=== PATIENT | female | born 1980 | race Caucasian/White ===

== ENCOUNTER 2019-03-26 11:14 | Emergency (ER) | payer SELFPAY ==
[2019-03-26] MEDS ORDERED: NA CHLORIDE 0.9% 1,000 ML ONE (11:38)
[2019-03-26] MEDS ORDERED: KETOROLAC 30 MG/ML INJ ONE (11:38)
[2019-03-26] MEDS ORDERED: ONDANSETRON 4 MG/2 ML VIAL ONE (11:38)
[2019-03-26] MEDS ORDERED: FAMOTIDINE 20 MG/2 ML VIAL IV ONE (11:38)
[2019-03-26 12:06] LABS: Absolute Lymphocytes (CBC) 1.3 K/uL (0.7-4.9); Basophils % 0.2 % (0-1.3); Hematocrit 41.2 % (36.0-45.0); Lymphocytes % 10.4 % (15.3-44.8); MPV 8.9 fL (7.6-11.3)
[2019-03-26 12:23] LABS: ALT/SGPT 49 U/L (12-78); AST/SGOT 30 U/L (15-37); Albumin 4.2 g/dL (3.4-5.0); Alkaline Phosphatase 81 U/L (45-117); BUN Blood Urea Nitrogen 10 mg/dL (7-18); Bicarbonate 24 mmol/L (21-32); Bilirubin Direct 0.1 mg/dL (0-0.2); Bilirubin Total 0.6 mg/dL (0.2-1.0); Glucose Level 111 mg/dL (74-106); Lipase 50 U/L (73-393); Potassium 3.7 mmol/L (3.5-5.1); Protein, Total 8.2 g/dL (6.4-8.2); Sodium Level 141 mmol/L (136-145)
[2019-03-26 12:27] LABS: Urine Blood 1+ (NEG); Urine Glucose NEGATIVE (NEG); Urine Protein NEGATIVE (NEG)
[2019-03-26 12:38] LABS: Blood Morphology Comment NOT SEEN (NOT SEEN); Platelet Estimate ADEQ
--- NOTE | 2019-03-26 13:28 | RAD REPORT ---
EXAM DESCRIPTION: US - Abdomen Exam Limited - 03/26/2019 1:18 pm CLINICAL HISTORY: ABD PAIN COMPARISON: ABDOMINAL EXAM LIMITED dated 11/17/2011 FINDINGS: The gallbladder demonstrates no gallstones. No pericholecystic fluid or gallbladder wall t hickening. The common bile duct is normal measuring 5 mm. The liver demonstrates no findings of intrahepatic biliary dilatation. IMPRESSION: Unremarkable examination.
--- NOTE | 2019-03-26 13:35 | ER ---
Nurse's Notes [facility] Name: Serenity Collins Age: 38 yrs Sex: Female : 1980 Arrival Date: 03/26/2019 Time: 11:20 Bed 17 Private MD: Diagnosis: Upper abdominal pain, unspecified Presentation: 03/26 11:20 Presenting complaint: EMS states: epigastric pain that started yesterday, reports N/V iw denies diarrhea or fever, also reports left ring toe pain after stubbing it on bed frame. Transition of care: patient was not received from another setting of care. Onset of symptoms was March 25, 2019. Risk Assessment: Do you want to hurt yourself or someone else? Patient reports no desire to harm self or others. Initial Sepsis Screen: Does the patient meet any 2 criteria? No. Patient's initial sepsis screen is negative. Does the patient have a suspected source of infection? No. Patient's initial sepsis screen is negative. Care prior to arrival: Medication(s) given: Normal saline infusion, 500 mL. 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 - Social history:: Smoking status: Patient/guardian denies using tobacco. - Ebola Screening: : Patient negative for fever greater than or equal to 101.5 degrees Fahrenheit, and additional compatible Ebola Virus Disease symptoms Patient denies exposure to infectious person Patient denies travel to an Ebola-affected area in the 21 days before illness onset No symptoms or risks identified at this time. Screenin:23 Abuse screen: Denies threats or abuse. Nutritional screening: No deficits noted. em Tuberculosis screening: No symptoms or risk factors identified. Fall Risk None identified. Assessment: 11:23 General: Appears in no apparent distress. comfortable, Behavior is calm, cooperative, em Denies fever. Pain: Complains of pain in right upper quadrant Pain currently is 9 out of 10 on a pain scale. Quality of pain is described as sharp, shooting. Neuro: Level of Consciousness is awake, alert, obeys commands, Oriented to person, place, time, situation. Cardiovascular: Capillary refill < 3 seconds Patient's skin is warm and dry. Respiratory: Airway is patent Respiratory effort is even, unlabored, Respiratory pattern is regular, symmetrical. GI: Abdomen is flat, Bowel sounds present X 4 quads. Abd is soft X 4 quads Abdomen is tender to palpation in right upper quadrant. Derm: Skin is intact, is healthy with good turgor, Skin is pink, warm \T\ dry. Musculoskeletal: Capillary refill < 3 seconds, Range of motion: intact in all extremities. 13:00 Reassessment: Patient appears in no apparent distress at this time. Patient and/or em family updated on plan of care and expected duration. Pain level reassessed. Patient is alert, oriented x 3, equal unlabored respirations, skin warm/dry/pink. rates pain 4/10 Patient states feeling better. 14:01 Reassessment: Patient appears in no apparent distress at this time. Patient and/or em family updated on plan of care and expected duration. Pain level reassessed. Patient is alert, oriented x 3, equal unlabored respirations, skin warm/dry/pink. pending x-ray on left foot. 15:16 Reassessment: Patient appears in no apparent distress at this time. Patient and/or iw family updated on plan of care and expected duration. Pain level reassessed. Patient is alert, oriented x 3, equal unlabored respirations, skin warm/dry/pink. Patient states feeling better. Vital Signs: 11:23 BP 136 / 81; Pulse 98; Resp 18; Temp 98.8(O); Pulse Ox 97% on R/A; Weight 63.5 kg; iw Height 5 ft. 2 in. (157.48 cm); Pain 8/10; 13:23 BP 118 / 68 LA (/reg); Pulse 95; Pain 4/10; tt1 14:49 BP 116 / 88 LA Supine (/reg); Pulse 65; Resp 16; Pulse Ox 98% ; Pain 0/10; tt1 11:23 Body Mass Index 25.61 (63.50 kg, 157.48 cm) iw ED Course: 11:20 Patient arrived in ED. iw 11:22 Dimitry Hillman PA is PHCP. jmm 11:22 Francis Foreman MD is Attending Physician. jmm 11:23 Arm band placed on. iw 11:23 Patient has correct armband on for positive identification. Placed in gown. Bed in low em position. Call light in reach. Pulse ox on. NIBP on. 11:23 Maintain EMS IV. Dressing intact. Good blood return noted. Site clean \T\ dry. Gauge \T\ em site: 20 RAC. 11:24 PHCP role handed off by Dimitry Hillman PA kb 11:24 Kristel Mcintyre FNP-C is PHCP. kb 11:26 Triage completed. iw 11:28 Miguel Angel Arreola LVN is Primary Nurse. em 13:18 Ultrasound completed. Patient tolerated well. sg3 13:20 US Abdomen Limited In Process Unspecified. EDMS 14:47 Foot Left 2 View XRAY In Process Unspecified. EDMS 15:15 No provider procedures requiring assistance completed. IV discontinued, intact, iw bleeding controlled, No redness/swelling at site. Pressure dressing applied. Administered Medications: 12:19 Drug: NS 0.9% 1000 ml Route: IV; Rate: 1000 ml; Site: right antecubital; aj1 13:45 Follow up: IV Status: Completed infusion; IV Intake: 1000ml em 12:19 Drug: Zofran 4 mg Route: IVP; Site: right antecubital; aj1 13:46 Follow up: Response: No adverse reaction; Nausea is decreased em 12:19 Drug: Pepcid 20 mg Route: IVP; Site: right antecubital; aj1 13:46 Follow up: Response: No adverse reaction; Pain is decreased em 12:19 Drug: TORadol - Ketorolac 15 mg Route: IVP; Site: right antecubital; aj1 13:45 Follow up: Response: No adverse reaction; Pain is decreased em Intake: 13:45 IV: 1000ml; Total: 1000ml. em Outcome: 13:34 Discharge ordered by . kb 15:15 Discharged to home ambulatory. iw 15:15 Condition: good 15:15 Discharge instructions given to patient, Instructed on discharge instructions, follow up and referral plans. medication usage, Demonstrated understanding of instructions, follow-up care, medications, Prescriptions given X 2. 15:16 Patient left the ED. iw Signatures: Dispatcher [employer] EDKristel Marquez, ELECTRONIC EQUIPMENT TRADES WORKER-C ELECTRONIC EQUIPMENT TRADES WORKER-Bridgerb Ashli Dunn, RN RN aj1 Dimitry Hillman PA PA jmm Miguel Angel Arreola, FLEET SERVICE CLERK FLEET SERVICE CLERK Yazmin Garay, RN RN iw Latha Ellis tt1 Sandy Burch sg3 Corrections: (The following items were deleted from the chart) 11:29 11:20 Presenting complaint: EMS states: epigastric pain that started yesterday, reports em N/V denies diarrhea or fever, also reports left ring toe pain iw
--- NOTE | 2019-03-26 13:36 | EDPHYS ---
Physician Documentation [facility] Name: Serenity Collins Age: 38 yrs Sex: Female : 1980 Arrival Date: 03/26/2019 Time: 11:20 Bed 17 Private MD: ED Physician Francis Foreman HPI: 03/26 12:02 This 38 yrs old Female presents to ER via EMS with complaints of Abdominal kb Pain. 12:02 The patient presents with abdominal pain in the epigastric area. Onset: The kb symptoms/episode began/occurred this morning, at 02:30. The symptoms do not radiate. Associated signs and symptoms: Pertinent positives: nausea and vomiting. The symptoms are described as constant. Modifying factors: The symptoms are alleviated by nothing, the symptoms are aggravated by nothing. Severity of pain: At its worst the pain was moderate in the emergency department the pain is unchanged. The patient has experienced similar episodes in the past, multiple times. The patient has not recently seen a physician. Pt reports she drank alcohol last night, went to bed around 2345 and woke up with pain, nausea and vomiting at approx 0230. States symptoms have been constant since then. 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 - Social history:: Smoking status: Patient/guardian denies using tobacco. - Ebola Screening: : Patient negative for fever greater than or equal to 101.5 degrees Fahrenheit, and additional compatible Ebola Virus Disease symptoms Patient denies exposure to infectious person Patient denies travel to an Ebola-affected area in the 21 days before illness onset No symptoms or risks identified at this time. ROS: 12:30 Constitutional: Negative for fever, chills, and weight loss, Neck: Negative for injury, kb pain, and swelling, Cardiovascular: Negative for chest pain, palpitations, and edema, Respiratory: Negative for shortness of breath, cough, wheezing, and pleuritic chest pain, Back: Negative for injury and pain, : Negative for injury, bleeding, discharge, and swelling, MS/Extremity: Negative for injury and deformity, Skin: Negative for injury, rash, and discoloration, Neuro: Negative for headache, weakness, numbness, tingling, and seizure. 12:30 Abdomen/GI: Positive for abdominal pain, nausea and vomiting, Negative for diarrhea, constipation, abdominal cramps, abdominal distension, anorexia. Exam: 12:30 Constitutional: This is a well developed, well nourished patient who is awake, alert, kb and in no acute distress. Head/Face: Normocephalic, atraumatic. ENT: Nares patent. No nasal discharge, no septal abnormalities noted. Tympanic membranes are normal and external auditory canals are clear. Oropharynx with no redness, swelling, or masses, exudates, or evidence of obstruction, uvula midline. Mucous membranes moist. Neck: Trachea midline, no thyromegaly or masses palpated, and no cervical lymphadenopathy. Supple, full range of motion without nuchal rigidity, or vertebral point tenderness. No Meningismus. Chest/axilla: Normal chest wall appearance and motion. Nontender with no deformity. No lesions are appreciated. Cardiovascular: Regular rate and rhythm with a normal S1 and S2. No gallops, murmurs, or rubs. Normal PMI, no JVD. No pulse deficits. Respiratory: Lungs have equal breath sounds bilaterally, clear to auscultation and percussion. No rales, rhonchi or wheezes noted. No increased work of breathing, no retractions or nasal flaring. Abdomen/GI: Soft, non-tender, with normal bowel sounds. No distension or tympany. No guarding or rebound. No evidence of tenderness throughout. Back: No spinal tenderness. No costovertebral tenderness. Full range of motion. Skin: Warm, dry with normal turgor. Normal color with no rashes, no lesions, and no evidence of cellulitis. MS/ Extremity: Pulses equal, no cyanosis. Neurovascular intact. Full, normal range of motion. Neuro: Awake and alert, GCS 15, oriented to person, place, time, and situation. Cranial nerves II-XII grossly intact. Motor strength 5/5 in all extremities. Sensory grossly intact. Cerebellar exam normal. Normal gait. Vital Signs: 11:23 BP 136 / 81; Pulse 98; Resp 18; Temp 98.8(O); Pulse Ox 97% on R/A; Weight 63.5 kg; iw Height 5 ft. 2 in. (157.48 cm); Pain 8/10; 13:23 BP 118 / 68 LA (/reg); Pulse 95; Pain 4/10; tt1 14:49 BP 116 / 88 LA Supine (/reg); Pulse 65; Resp 16; Pulse Ox 98% ; Pain 0/10; tt1 11:23 Body Mass Index 25.61 (63.50 kg, 157.48 cm) iw MDM: 11:24 Patient medically screened. kb 12:30 Data reviewed: vital signs, nurses notes. Data interpreted: Pulse oximetry: on room air kb is 97 %. Interpretation: normal. 13:32 Counseling: I had a detailed discussion with the patient and/or guardian regarding: the kb historical points, exam findings, and any diagnostic results supporting the discharge/admit diagnosis, lab results, radiology results, the need for outpatient follow up, a family practitioner, to return to the emergency department if symptoms worsen or persist or if there are any questions or concerns that arise at home. 03/26 11:25 Order name: Basic Metabolic Panel; Complete Time: 12:25 kb 03/26 11:25 Order name: CBC with Diff; Complete Time: 12:42 kb 03/26 11:25 Order name: Hepatic Function; Complete Time: 12:25 kb 03/26 11:25 Order name: Lipase; Complete Time: 12:25 kb 03/26 12:09 Order name: Manual Differential; Complete Time: 12:42 EDMS 03/26 12:15 Order name: Urine Dipstick--Ancillary (enter results); Complete Time: 12:28 em1 03/26 11:25 Order name: IV Saline Lock; Complete Time: 12:49 kb 03/26 12:16 Order name: Urine --Ancillary (enter results); Complete Time: 12:28 em1 03/26 12:26 Order name: US Abdomen Limited; Complete Time: 13:31 kb 03/26 13:42 Order name: Foot Left 2 View XRAY; Complete Time: 15:11 kb 03/26 11:25 Order name: Labs collected and sent; Complete Time: 12:49 kb Administered Medications: 12:19 Drug: NS 0.9% 1000 ml Route: IV; Rate: 1000 ml; Site: right antecubital; aj1 13:45 Follow up: IV Status: Completed infusion; IV Intake: 1000ml em 12:19 Drug: Zofran 4 mg Route: IVP; Site: right antecubital; aj1 13:46 Follow up: Response: No adverse reaction; Nausea is decreased em 12:19 Drug: Pepcid 20 mg Route: IVP; Site: right antecubital; aj1 13:46 Follow up: Response: No adverse reaction; Pain is decreased em 12:19 Drug: TORadol - Ketorolac 15 mg Route: IVP; Site: right antecubital; aj1 13:45 Follow up: Response: No adverse reaction; Pain is decreased em Disposition: 03/26/19 13:34 Discharged to Home. Impression: Upper abdominal pain, unspecified. - Condition is Stable. - Discharge Instructions: Abdominal Pain, Adult, [id number]. - Prescriptions for Bentyl 20 mg Oral Tablet - take 1 tablet by ORAL route every 6 hours As needed; 20 tablet. Zofran 4 mg Oral Tablet - take 1 tablet by ORAL route every 6 hours As needed; 20 tablet. - Medication Reconciliation Form, Thank You Letter, Antibiotic Education, Prescription Opioid Use form. - Follow up: Emergency Department; When: As needed; Reason: Worsening of condition. Follow up: Private Physician; When: 2 - 3 days; Reason: Recheck today's complaints, Continuance of care, Re-evaluation by your physician. Addendum: 03/28/2019 09:31 Co-signature as Attending Physician, Francis Foreman MD I agree with the assessment and c viera plan of care. Signatures: Dispatcher [employer] Kristel Ybarra, ARCHITECTURAL PRACTICE MANAGER-C ARCHITECTURAL PRACTICE MANAGER-Ckb Ashli Dunn, RN RN aj1 Francis Foreman MD MD cha Williams, Irene, YOHAN RN iw Miguel Angel Arreola BRUSH CUTTER em Corrections: (The following items were deleted from the chart) 03/26 15:16 13:34 03/26/2019 13:34 Discharged to Home. Impression: Upper abdominal pain, iw unspecified. Condition is Stable. Forms are Medication Reconciliation Form, Thank You Letter, Antibiotic Education, Prescription Opioid Use. Follow up: Emergency Department; When: As needed; Reason: Worsening of condition. Follow up: Private Physician; When: 2 - 3 days; Reason: Recheck today's complaints, Continuance of care, Re-evaluation by your physician. kb
--- NOTE | 2019-03-26 15:08 | RAD REPORT ---
EXAM DESCRIPTION: RAD - Foot Left 2 View - 03/26/2019 2:44 pm CLINICAL HISTORY: PAIN COMPARISON: No comparisons FINDINGS: No fracture or dislocation seen.
[2019-03-26 15:31] VITALS: TEMP 98.8
[2019-03-26 15:34] VITALS: BP 116/88; O2SAT 98
== END 2019-03-26 15:16 | disposition home or self-care (01) ==
LOC: ER 11:14
DX: R10.13 Epigastric pain (principal); R11.2 Nausea with vomiting, unspecified; F41.9 Anxiety disorder, unspecified; M06.9 Rheumatoid arthritis, unspecified
CPT/HCPCS: 36415; 76705; 80048; 80076; 81003; 81025; 83690; 85025; 96361; 96374; 96375; 99284; J2405; J7030

== ENCOUNTER 2019-06-11 14:17 | Emergency (ER) | payer SELFPAY ==
[2019-06-11] MEDS ORDERED: METHYLPREDNISOLONE 125 MG INJ ONE (15:03)
[2019-06-11] MEDS ORDERED: HYDROCODONE/APAP 10/325 TAB ONE (15:03)
--- NOTE | 2019-06-11 15:28 | ER ---
Nurse's Notes [facility] Name: Serenity Collins Age: 38 yrs Sex: Female : 1980 Arrival Date: 06/11/2019 Time: 14:21 Bed 13 Private MD: Diagnosis: Acute pain, not elsewhere classified-back pain Presentation: 06/11 14:21 Presenting complaint: Patient states: hx RA, c/o neck, back pain x 2 weeks, headache, sv nausea. Transition of care: patient was not received from another setting of care. Onset of symptoms was May 2019. Risk Assessment: Do you want to hurt yourself or someone else? Patient reports no desire to harm self or others. Initial Sepsis Screen: Does the patient meet any 2 criteria? No. Patient's initial sepsis screen is negative. Does the patient have a suspected source of infection? No. Patient's initial sepsis screen is negative. Care prior to arrival: None. 14:21 Method Of Arrival: Ambulatory sv 14:21 Acuity: MARY 4 sv Historical: - Allergies: 14:22 No Known Allergies; sv - PMHx: 14:22 Anxiety; Rheumatoid Arthritis; sv - PSHx: 14:22 None; sv Screenin:45 Abuse screen: Denies threats or abuse. Nutritional screening: No deficits noted. em Tuberculosis screening: No symptoms or risk factors identified. Fall Risk None identified. Assessment: 14:50 General: Appears in no apparent distress. uncomfortable, Behavior is calm, cooperative, em Denies fever. Pain: Complains of pain in right mid back and lumbar area and thoracic area Pain currently is 10 out of 10 on a pain scale. Neuro: Level of Consciousness is awake, alert, obeys commands, Oriented to person, place, time, situation, Appropriate for age. Cardiovascular: Capillary refill < 3 seconds Patient's skin is warm and dry. Respiratory: Airway is patent Respiratory effort is even, unlabored, Respiratory pattern is regular, symmetrical. GI: Abdomen is flat. Derm: Skin is intact, is healthy with good turgor, Skin is pink, warm \\T\\ dry. Musculoskeletal: Capillary refill < 3 seconds, Range of motion: intact in all extremities, Reports pain in right mid back and lumbar area and thoracic area since "cold front came in". Pain is 10 out of 10 on a pain scale. 14:50 Reassessment: I agree with assessment completed by Miguel Angel Arreola LVN . aa5 Vital Signs: 14:22 BP 120 / 80; Pulse 90; Resp 18; Temp 98.3; Pulse Ox 100% ; Weight 68.04 kg; Height 5 sv ft. 2 in. (157.48 cm); 15:48 BP 114 / 74; Pulse 75; Resp 16; Pulse Ox 99% on R/A; Pain 7/10; em 14:22 Body Mass Index 27.44 (68.04 kg, 157.48 cm) sv ED Course: 14:21 Patient arrived in ED. mr 14:22 Triage completed. sv 14:23 Arm band placed on. sv 14:28 Kristel Mcintyre FNP-C [facility]. kb 14:28 Ramu Choi MD is Attending Physician. kb 14:44 Miguel Angel Arreola LVN is Primary Nurse. em 14:45 Patient has correct armband on for positive identification. Bed in low position. em 15:45 No provider procedures requiring assistance completed. Patient did not have IV access em during this emergency room visit. Administered Medications: 15:05 Drug: [place] 10 mg-325 mg 1 tabs Route: PO; em 15:45 Follow up: Response: No adverse reaction; Pain is decreased em 15:10 Drug: SOLU-Medrol 125 mg Route: IM; Site: right gluteus; em 15:45 Follow up: Response: No adverse reaction; Pain is decreased em Outcome: 15:27 Discharge ordered by MD. kb 15:45 Discharged to home ambulatory. em 15:45 Condition: good 15:45 Discharge instructions given to patient, Instructed on discharge instructions, follow up and referral plans. medication usage, Demonstrated understanding of instructions, follow-up care, medications, Prescriptions given X 1. 15:48 Patient left the ED. em Signatures: Kristel Mcintyre FNP-C FNP-Ckb Verde, Stephanie RN RN CastelanMelanie mr Miguel Angel Arreola LVN LVN em Ghada Nazario, RN RN aa5 Corrections: (The following items were deleted from the chart) 14:24 14:22 Pulse 90bpm; Resp 18bpm; Pulse Ox 100%; Temp 98.3F; 68.04 kg; Height 5 ft. 2 in.; sv BMI: 27.4; sv
--- NOTE | 2019-06-11 15:28 | EDPHYS ---
Physician Documentation [facility] Name: Serenity Collins Age: 38 yrs Sex: Female : 1980 Arrival Date: 06/11/2019 Time: 14:21 Bed 13 Private MD: ED Physician Ramu Choi HPI: 06/11 15:23 This 38 yrs old Female presents to ER via Ambulatory with complaints of Neck kb Problem, Back Pain. 15:23 The patient presents with pain that is acute. The symptoms are located in the thoracic kb area, lumbar area and right mid back. Onset: The symptoms/episode began/occurred 2 week(s) ago. The pain does not radiate. Associated signs and symptoms: The patient has no apparent associated signs or symptoms. The problem was sustained from unknown cause. Modifying factors: The patient symptoms are alleviated by nothing, the patient symptoms are aggravated by any movement. Severity of symptoms: At their worst the symptoms were moderate, in the emergency department the symptoms are unchanged. The patient has experienced similar episodes in the past. The patient has not recently seen a physician. Pt reports she was diagnosed with RA at the beginning of the year, but doesn't have the money to see a specialist so she has just been dealing with the pain. States pain is always in extremities and intermittently in back and neck. Reports pain has been in back and neck for 2 weeks and she can't take it anymore. States she had tried tramadol in the past, prescribed by her PCP, but it is like aspirin so it doesn't work well. . Historical: - Allergies: 14:22 No Known Allergies; sv - PMHx: 14:22 Anxiety; Rheumatoid Arthritis; sv - PSHx: 14:22 None; sv ROS: 15:18 Constitutional: Negative for fever, chills, and weight loss, ENT: Negative for injury, kb pain, and discharge, Neck: Negative for injury, pain, and swelling, Cardiovascular: Negative for chest pain, palpitations, and edema, Respiratory: Negative for shortness of breath, cough, wheezing, and pleuritic chest pain, Abdomen/GI: Negative for abdominal pain, nausea, vomiting, diarrhea, and constipation, : Negative for injury, bleeding, discharge, and swelling, MS/Extremity: Negative for injury and deformity, Skin: Negative for injury, rash, and discoloration, Neuro: Negative for headache, weakness, numbness, tingling, and seizure. 15:18 Back: Positive for pain at rest, pain with movement. Exam: 15:22 Constitutional: This is a well developed, well nourished patient who is awake, alert, kb and in no acute distress. Head/Face: Normocephalic, atraumatic. ENT: Nares patent. No nasal discharge, no septal abnormalities noted. Tympanic membranes are normal and external auditory canals are clear. Oropharynx with no redness, swelling, or masses, exudates, or evidence of obstruction, uvula midline. Mucous membranes moist. Neck: Trachea midline, no thyromegaly or masses palpated, and no cervical lymphadenopathy. Supple, full range of motion without nuchal rigidity, or vertebral point tenderness. No Meningismus. Chest/axilla: Normal chest wall appearance and motion. Nontender with no deformity. No lesions are appreciated. Cardiovascular: Regular rate and rhythm with a normal S1 and S2. No gallops, murmurs, or rubs. Normal PMI, no JVD. No pulse deficits. Respiratory: Lungs have equal breath sounds bilaterally, clear to auscultation and percussion. No rales, rhonchi or wheezes noted. No increased work of breathing, no retractions or nasal flaring. Abdomen/GI: Soft, non-tender, with normal bowel sounds. No distension or tympany. No guarding or rebound. No evidence of tenderness throughout. Skin: Warm, dry with normal turgor. Normal color with no rashes, no lesions, and no evidence of cellulitis. MS/ Extremity: Pulses equal, no cyanosis. Neurovascular intact. Full, normal range of motion. Neuro: Awake and alert, GCS 15, oriented to person, place, time, and situation. Cranial nerves II-XII grossly intact. Motor strength 5/5 in all extremities. Sensory grossly intact. Cerebellar exam normal. Normal gait. 15:22 Back: pain, that is mild, that is moderate, of the thoracic area, lumbar area and right mid back, ROM is painful, normal spinal alignment noted. Vital Signs: 14:22 BP 120 / 80; Pulse 90; Resp 18; Temp 98.3; Pulse Ox 100% ; Weight 68.04 kg; Height 5 sv ft. 2 in. (157.48 cm); 15:48 BP 114 / 74; Pulse 75; Resp 16; Pulse Ox 99% on R/A; Pain 7/10; em 14:22 Body Mass Index 27.44 (68.04 kg, 157.48 cm) sv MDM: 14:28 Patient medically screened. kb 15:22 Data reviewed: vital signs, nurses notes. Data interpreted: Pulse oximetry: on room air kb is 100 %. Interpretation: normal. Counseling: I had a detailed discussion with the patient and/or guardian regarding: the historical points, exam findings, and any diagnostic results supporting the discharge/admit diagnosis, the need for outpatient follow up, a family practitioner, to return to the emergency department if symptoms worsen or persist or if there are any questions or concerns that arise at home. ED course: Educated on need to follow up with hospitality services manager. Administered Medications: 15:05 Drug: [place] 10 mg-325 mg 1 tabs Route: PO; em 15:45 Follow up: Response: No adverse reaction; Pain is decreased em 15:10 Drug: SOLU-Medrol 125 mg Route: IM; Site: right gluteus; em 15:45 Follow up: Response: No adverse reaction; Pain is decreased em Disposition: 16:06 Co-signature as Attending Physician, Ramu Choi MD. rn Disposition: 06/11/19 15:27 Discharged to Home. Impression: Acute pain, not elsewhere classified - back pain. - Condition is Stable. - Discharge Instructions: Rheumatoid Arthritis. - Prescriptions for Medrol (Hair) 4 mg Oral Tablets, Dose Pack - take 1 tablet by ORAL route as directed - follow package instructions; 1 packet. - Medication Reconciliation Form, Thank You Letter, Antibiotic Education, Prescription Opioid Use form. - Follow up: Emergency Department; When: As needed; Reason: Worsening of condition. Follow up: Private Physician; When: 2 - 3 days; Reason: Recheck today's complaints, Continuance of care, Re-evaluation by your physician. Signatures: Kristel Mcintyre, MACEY GORE-Kamille Hogue, RN RN sv Miguel Angel Arreola, DEPENDENCY COUNSELOR DEPENDENCY COUNSELOR Ramu Sy MD MD consultant rn: (The following items were deleted from the chart) 15:48 15:27 06/11/2019 15:27 Discharged to Home. Impression: Acute pain, not elsewhere em classified - back pain. Condition is Stable. Forms are Medication Reconciliation Form, Thank You Letter, Antibiotic Education, Prescription Opioid Use. Follow up: Emergency Department; When: As needed; Reason: Worsening of condition. Follow up: Private Physician; When: 2 - 3 days; Reason: Recheck today's complaints, Continuance of care, Re-evaluation by your physician. kb
[2019-06-11 15:52] VITALS: TEMP 98.3
[2019-06-11 15:54] VITALS: BP 114/74; O2SAT 99
== END 2019-06-11 15:48 | disposition home or self-care (01) ==
LOC: ER 14:17
DX: M54.9 Dorsalgia, unspecified (principal)
CPT/HCPCS: 96372; 99283; J2930

== ENCOUNTER 2019-06-23 13:08 | Emergency (ER) | payer SELFPAY ==
[2019-06-23] MEDS ORDERED: KETOROLAC 30 MG/ML INJ ONE (14:52)
[2019-06-23] MEDS ORDERED: predniSONE 20 MG TAB ONE (14:52)
[2019-06-23 15:28] LABS: Absolute Lymphocytes (CBC) 2.7 K/uL (0.7-4.9); Basophils % 0.8 % (0-1.3); Hematocrit 39.9 % (36.0-45.0); Lymphocytes % 28.8 % (15.3-44.8); MPV 9.1 fL (7.6-11.3); RBC Red Blood Cell Count 4.49 M/uL (3.86-4.86)
[2019-06-23 16:21] LABS: BUN Blood Urea Nitrogen 15 mg/dL (7-18); Bicarbonate 23 mmol/L (21-32); Glucose Level 97 mg/dL (74-106); Sodium Level 141 mmol/L (136-145)
--- NOTE | 2019-06-23 17:48 | RAD REPORT ---
EXAM DESCRIPTION: Sharona Single View06/23/2019 5:42 pm CLINICAL HISTORY: cough COMPARISON: none FINDINGS: The lungs appear clear of acute infiltrate. The heart is normal size IMPRESSION: No acute abnormalities displayed
--- NOTE | 2019-06-23 18:01 | ER ---
Nurse's Notes [facility] Name: Serenity Collins Age: 38 yrs Sex: Female : 1980 Arrival Date: 06/23/2019 Time: 13:10 Bed 25 Private MD: Diagnosis: Other chronic pain;Rheumatoid Arthritis Presentation: 06/23 13:13 Presenting complaint: Patient states: generalized pain, right lung pain, right ear sv pain, sore throat has been ongoing. c/o productive cough, smokes marijuana. Transition of care: patient was not received from another setting of care. Onset of symptoms is unknown. Risk Assessment: Do you want to hurt yourself or someone else? Patient reports no desire to harm self or others. Care prior to arrival: None. 13:13 Method Of Arrival: Ambulatory sv 13:13 Acuity: MARY 3 sv 16:01 Initial Sepsis Screen: Does the patient meet any 2 criteria? No. Patient's initial mg2 sepsis screen is negative. Does the patient have a suspected source of infection? No. Patient's initial sepsis screen is negative. Triage Assessment: 13:13 General: Appears in no apparent distress. uncomfortable, Behavior is cooperative, sv appropriate for age. EENT: Reports pain in throat. Neuro: Level of Consciousness is awake, alert, obeys commands. Respiratory: Respiratory effort is even, unlabored. 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 - Social history:: Smoking status: unknown. - Ebola Screening: : No symptoms or risks identified at this time. Screenin:30 Fall Risk IV access (20 points). mg2 16:00 Abuse screen: Denies threats or abuse. Denies injuries from another. Nutritional mg2 screening: No deficits noted. Tuberculosis screening: No symptoms or risk factors identified. Assessment: 15:30 General: Appears in no apparent distress. comfortable, Behavior is calm, cooperative. mg2 15:30 Pain: Complains of pain in whole body Pain does not radiate. Pain currently is 5 out of mg2 10 on a pain scale. Quality of pain is described as aching, Pain began gradually, Is intermittent. Neuro: Level of Consciousness is awake, alert, obeys commands, Oriented to person, place, time, situation. Cardiovascular: Capillary refill < 3 seconds Patient's skin is warm and dry. Respiratory: Airway is patent Respiratory effort is even, unlabored, Respiratory pattern is regular, symmetrical. GI: No signs and/or symptoms were reported involving the gastrointestinal system. : No signs and/or symptoms were reported regarding the genitourinary system. EENT: Reports ear pain and sore throat. Derm: Skin is intact, is healthy with good turgor, Skin is pink, warm \T\ dry. normal. Musculoskeletal: Circulation, motion, and sensation intact. Capillary refill < 3 seconds. 16:52 Reassessment: Patient appears in no apparent distress at this time. Patient and/or mg2 family updated on plan of care and expected duration. Pain level reassessed. Patient is alert, oriented x 3, equal unlabored respirations, skin warm/dry/pink. 17:53 Reassessment: No changes from previously documented assessment. Patient and/or family js5 updated on plan of care and expected duration. Pain level reassessed. Patient is alert, oriented x 3, equal unlabored respirations, skin warm/dry/pink. 17:54 Reassessment: provider informed about the shortness of breath of the patient and he mg2 ordered of chest xray. Vital Signs: 13:14 BP 129 / 86; Pulse 78; Resp 18; Temp 98.6(O); Pulse Ox 99% ; Weight 72.57 kg; Height 5 sv ft. 2 in. (157.48 cm); 15:27 BP 119 / 83; Pulse 65; Resp 19; Temp 97.7; Pulse Ox 99% on R/A; js5 16:52 BP 114 / 75; Pulse 68; Resp 18; Pulse Ox 100% on R/A; mg2 17:11 BP 98 / 62; Pulse 98; Resp 19; Pulse Ox 98% on R/A; js5 18:04 BP 102 / 63; Pulse 65; Resp 19; Pulse Ox 96% on R/A; js5 13:14 Body Mass Index 29.26 (72.57 kg, 157.48 cm) sv ED Course: 13:10 Patient arrived in ED. as 13:14 Triage completed. sv 13:14 Arm band placed on. sv 14:07 Joseph Almaraz PA is PHCP. jr8 14:07 Rodney Oliveira MD is Attending Physician. jr8 14:17 Jayme Escobar, RN is Primary Nurse. mg2 16:01 No provider procedures requiring assistance completed. Inserted saline lock: 20 gauge mg2 in left antecubital area, using aseptic technique. Blood collected. by OYHAN Solis. 16:02 Patient has correct armband on for positive identification. Pulse ox on. NIBP on. Door mg2 closed. Warm blanket given. 17:43 XRAY Chest (1 view) In Process Unspecified. EDMS 18:23 IV discontinued, intact, bleeding controlled, No redness/swelling at site. Pressure mg2 dressing applied. Administered Medications: 15:26 Drug: TORadol - Ketorolac 15 mg Route: IVP; Site: left antecubital; js5 15:59 Follow up: Response: No adverse reaction; Pain is decreased mg2 15:26 Drug: predniSONE 60 mg Route: PO; js5 15:59 Follow up: Response: No adverse reaction mg2 Outcome: 18:01 Discharge ordered by MD. jr8 18:23 Discharged to home ambulatory. mg2 18:23 Condition: stable 18:23 Discharge instructions given to patient, Instructed on discharge instructions, follow up and referral plans. medication usage, Demonstrated understanding of instructions, follow-up care, medications, Prescriptions given X 2. 18:24 Patient left the ED. mg2 Signatures: Dispatcher [employer] EDKS Kamille Sullivan RN RN sv Martinez, Amelia as Joseph Almaraz PA PA jr8 Jayme Escobar RN RN mg2 Elza Gallegos js5 Corrections: (The following items were deleted from the chart) 13:15 13:14 BP 129 / 86; Resp 18bpm; Pulse Ox 99%; 72.57 kg; Height 5 ft. 2 in.; BMI: 29.2; svsv 17:54 17:11 Pulse 98bpm; Resp 19bpm; Pulse Ox 98%; js5 js5
--- NOTE | 2019-06-23 18:02 | EDPHYS ---
Physician Documentation [facility] Name: Serenity Collins Age: 38 yrs Sex: Female : 1980 Arrival Date: 06/23/2019 Time: 13:10 Bed 25 Private MD: ED Physician Rodney Oliveira HPI: 06/23 15:02 This 38 yrs old Female presents to ER via Ambulatory with complaints of Ear jr8 Pain, Sore Throat, Arthritis, Toothache. 15:02 Patient stated that she was seen several days ago for similar pain to neck and back but jr8 now having facial pain and ear pain. Has had dental infections and ear infections in past. Was put on steroids at home for RA pain but still not feeling better. Severity of symptoms: At their worst the symptoms were moderate in the emergency department the symptoms are unchanged. The patient has experienced similar episodes in the past, chronically. The patient has been recently seen at the [facility] Emergency Department, last week. 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 - Social history:: Smoking status: unknown. - Ebola Screening: : No symptoms or risks identified at this time. ROS: 15:02 Eyes: Negative for injury, pain, redness, and discharge, Cardiovascular: Negative for jr8 chest pain, palpitations, and edema, Respiratory: Negative for shortness of breath, cough, wheezing, and pleuritic chest pain, Abdomen/GI: Negative for abdominal pain, nausea, vomiting, diarrhea, and constipation, MS/Extremity: Negative for injury and deformity. Positive for diffuse joint pain Skin: Negative for injury, rash, and discoloration, Neuro: Negative for headache, weakness, numbness, tingling, and seizure. 15:02 ENT: Positive for dental pain, ear pain. 15:02 Neck: Positive for pain with movement, pain at rest, tenderness, Negative for stiffness, swelling, swollen nodes. Exam: 15:02 Eyes: Pupils equal round and reactive to light, extra-ocular motions intact. Lids and jr8 lashes normal. Conjunctiva and sclera are non-icteric and not injected. Cornea within normal limits. Periorbital areas with no swelling, redness, or edema. ENT: Nares patent. No nasal discharge, no septal abnormalities noted. Tympanic membranes are normal and external auditory canals are clear. Oropharynx with no redness, swelling, or masses, exudates, or evidence of obstruction, uvula midline. Mucous membranes moist. Diffuse dental caries with decay of 1st molar on left lower jaw Neck: Trachea midline, no thyromegaly or masses palpated, and no cervical lymphadenopathy. Supple, full range of motion without nuchal rigidity, or vertebral point tenderness. No Meningismus. Mild pain with any motion to lateral sides of neck Cardiovascular: Regular rate and rhythm with a normal S1 and S2. No gallops, murmurs, or rubs. Normal PMI, no JVD. No pulse deficits. Respiratory: Lungs have equal breath sounds bilaterally, clear to auscultation and percussion. No rales, rhonchi or wheezes noted. No increased work of breathing, no retractions or nasal flaring. Abdomen/GI: Soft, non-tender, with normal bowel sounds. No distension or tympany. No guarding or rebound. No evidence of tenderness throughout. Back: No spinal tenderness. No costovertebral tenderness. Full range of motion. Skin: Warm, dry with normal turgor. Normal color with no rashes, no lesions, and no evidence of cellulitis. MS/ Extremity: Pulses equal, no cyanosis. Neurovascular intact. Full, normal range of motion. Neuro: Awake and alert, GCS 15, oriented to person, place, time, and situation. Cranial nerves II-XII grossly intact. Motor strength 5/5 in all extremities. Sensory grossly intact. Cerebellar exam normal. Normal gait. Vital Signs: 13:14 BP 129 / 86; Pulse 78; Resp 18; Temp 98.6(O); Pulse Ox 99% ; Weight 72.57 kg; Height 5 sv ft. 2 in. (157.48 cm); 15:27 BP 119 / 83; Pulse 65; Resp 19; Temp 97.7; Pulse Ox 99% on R/A; js5 16:52 BP 114 / 75; Pulse 68; Resp 18; Pulse Ox 100% on R/A; mg2 17:11 BP 98 / 62; Pulse 98; Resp 19; Pulse Ox 98% on R/A; js5 18:04 BP 102 / 63; Pulse 65; Resp 19; Pulse Ox 96% on R/A; js5 13:14 Body Mass Index 29.26 (72.57 kg, 157.48 cm) sv MDM: 14:17 Patient medically screened. jr8 17:59 Data reviewed: vital signs, nurses notes, lab test result(s), radiologic studies, plain jr8 films. Data interpreted: Pulse oximetry: on room air is 98 %. Interpretation: normal. Counseling: I had a detailed discussion with the patient and/or guardian regarding: the historical points, exam findings, and any diagnostic results supporting the discharge/admit diagnosis, lab results, radiology results, the need for outpatient follow up, a marble installer, to return to the emergency department if symptoms worsen or persist or if there are any questions or concerns that arise at home. Response to treatment: the patient's symptoms have mildly improved after treatment. ED course: No acute findings on labs or images. Patient with Rheumatoid arthritis history. Recently on steroids. Will send home on tapered dose. Otherwise again instructed to f/u with marble installer . 06/23 14:42 Order name: CBC with Diff; Complete Time: 16:02 [facility] 06/23 14:42 Order name: Basic Metabolic Panel; Complete Time: 16:25 [facility] 06/23 14:42 Order name: Influenza Screen (a \T\ B); Complete Time: 16:59 [facility] 06/23 17:09 Order name: XRAY Chest (1 view); Complete Time: 17:58 [facility] 06/23 14:42 Order name: SL; Complete Time: 15:26 [facility] 06/23 15:42 Order name: Labs - recollect needed: recollect chemistry; Complete Time: 15:49 eb Administered Medications: 15:26 Drug: TORadol - Ketorolac 15 mg Route: IVP; Site: left antecubital; js5 15:59 Follow up: Response: No adverse reaction; Pain is decreased mg2 15:26 Drug: predniSONE 60 mg Route: PO; js5 15:59 Follow up: Response: No adverse reaction mg2 Disposition: 06/24 07:18 Co-signature as Attending Physician, Rodney Oliveira MD I agree with the assessment and kdr plan of care. Disposition: 06/23/19 18:01 Discharged to Home. Impression: Other chronic pain, Rheumatoid Arthritis. - Condition is Stable. - Discharge Instructions: Chronic Pain, Rheumatoid Arthritis. - Prescriptions for Prednisone 20 mg Oral Tablet - take 2 tablet by ORAL route once daily for 7 days then one tablet for 5 days, then half a tab for 5 days; 22 tablet. meloxicam 15 mg Oral tablet - take 1 tablet by ORAL route once daily As needed; 20 tablet. - Medication Reconciliation Form, Thank You Letter, Antibiotic Education, Prescription Opioid Use form. - Follow up: Private Physician; When: 2 - 3 days; Reason: Recheck today's complaints, Continuance of care, Re-evaluation by your physician. - Problem is new. - Symptoms have improved. Signatures: Dispatcher [employer] EDKamille Leal RN RN sv Rodney Oliveira MD MD kdr Roszak, Josh, PA PA jr8 Elle Pompa Michele, RN RN mg2 Elza Gallegos js5 Corrections: (The following items were deleted from the chart) 06/23 18:24 18:01 06/23/2019 18:01 Discharged to Home. Impression: Other chronic pain; Rheumatoid mg2 Arthritis. Condition is Stable. Forms are Medication Reconciliation Form, Thank You Letter, Antibiotic Education, Prescription Opioid Use. Follow up: Private Physician; When: 2 - 3 days; Reason: Recheck today's complaints, Continuance of care, Re-evaluation by your physician. Problem is new. Symptoms have improved. jr8
[2019-06-23 19:20] VITALS: TEMP 97.7
[2019-06-23 19:25] VITALS: BP 102/63; O2SAT 96
--- OUTSIDE RECORDS SUMMARY | 2019-06-27 03:57 | XMS REPORT ---
:1980 Author Organization [facility] Address [address] [place] [address] [address] [place] [address] Care Team Providers Name Role Phone JEANNINE, DR WHATLEY Unavailable Unavailable CINDI, DR KEYUR Elias Unavailable Unavailable POTANAHY, DR MARKELL Madison Unavailable Unavailable MAUREEN, DR CARPENTER Unavailable Unavailable MING, DR SUZIE Downing Unavailable Unavailable NICOLETTE, DR LEACH Unavailable Unavailable TRISH, DR DARÍO Newton Unavailable Unavailable Problems This patient has no known problems. Allergies, Adverse Reactions, Alerts This patient has no known allergies or adverse reactions. Medications This patient has no known medications. Encounters Start End Encounter Admission Attending Care Care Encounter Date/Time Date/Time Type Type Clinicians Facility Department ID 2019-01-07 2019-01-07 Outpatient E JEANNINE, [facility] [id number] 10:23:00 12:27:00 PHYLICIA 2018-12-04 2018-12-04 Outpatient E CINDI [facility] [id number] 10:20:00 15:57:00 KEYUR 2018-11-11 2018-11-11 Outpatient E GILBERT [facility] [id number] 04:05:00 06:00:00 MARKELL 2018-10-12 2018-10-12 Outpatient E PAULINE REDDY [facility] [id number] 06:24:00 08:08:00 2018-09-30 2018-09-30 Outpatient E MING [facility] [id number] 13:45:00 14:12:00 SUZIE 2018-09-04 2018-09-04 Outpatient E MING [facility] [id number] 17:32:00 18:30:00 SUZIE 2018-08-19 2018-08-19 Outpatient E HANY WILL [facility] [id number] 08:43:00 10:15:00 2018-08-08 2018-08-08 Outpatient E TRISH [facility] [id number] 13:34:00 16:43:00 DARÍO Results Test Description Test Time Test Comments Text Results Atomic Results Result Comments U/S GALLBLADDER *OW* 2018-12-04 15:44:54 CLINICAL HISTORY: Upper abdominal pain.LOCATION: D4.FINDINGS: Real-time grayscale sonographic evaluation is performed of the rightupper quadrant of the abdomen with limited color Doppler evaluation. Comparisonis made with CT abdomen/pelvis dated November 11, 2018.. The liver demonstratesnormal echotexture. There is no evidence of intra or extrahepatic biliaryductal dilatation. The common bile duct measures 4 mm in width. The gallbladderis normal in appearance. The pancreas is within normal limits. The right kidneydemonstrates normal echogenicity and measures 10.3 cm in length. The aortademonstrates normal caliber. The IVC appears to be within normal limits.IMPRESSION:1. No abnormalities are identified . BRAIN NATRIURETIC PROTEIN OW 2018-12-04 12:28:00 Test Item Value Reference Range Comments BNP (test code=OBNP) <15 pg/mL 0-50 CT PE PROTOCOL *OW*2018-12-04 12:10:41CLINICAL HISTORY: Chest pain.LOCATION: D4.FINDINGS: Following the administration of 95 mL Omnipaque 350 intravenouscontrast, multislice axial images are obtained through the chest during thearterial phase per angiography protocol. Reconstructed images are obtained andare used in interpretation. Creatinine is 0.6. The pulmonary arterial vasculature is normal in appearance without evidence ofcentral pulmonary embolus. The thoracic aorta and visualized abdominal aortaare within normal limits. Multiple subcentimeter mediastinal nodes are notedwith no significant mediastinal adenopathy appreciated. There is afat-containing umbilical hernia measuring 1.9 cm AP x 2.5 cm transverse. Noacute skeletal or soft tissue abnormalities are identified.The lungs are clear. No infiltrates identified. There are nopleural effusions.IMPRESSION:1. No evidence of central pulmonary embolus. No acute abnormalities.*One or more of the following radiation dose reduction techniques was used:automated exposure control, adjustment of mA and/or KV according to patientsize, and/or utilization of iterative reconstruction technique.TROPONIN I i-STAT OW2018-12-04 11:38:00 Test Item Value Reference Range Comments TROPONIN I (test code=A84) 0.000 ng/mL 0.000-0.045 URINE OW2018-12-04 11:24:00 Test Item Value Reference Range Comments PREG UR (test code=PGU) Negative NEGATIVE XR CHEST 2 VIEW *OW*2018-12-04 11:17:59CLINICAL HISTORY: Dyspnea, right-sided chest pain.LOCATION: D4.FINDINGS: Comparison is made with previous study dated October 12, 2018. A PAand lateral examination of the chest demonstrates the cardiomediastinalsilhouette to be within normal limits. There are no infiltrates or pleuraleffusions. No skeletal or soft tissue abnormalities.IMPRESSION:1. No acute disease.CHEM8+ i-STAT OW2018-12-04 11: 08:00 Test Item Value Reference Range Comments SODIUM (test code=MENG) 141 mmol/L 138-146 POTASSIUM (test code=KI) 3.7 mmol/L 3.5-4.9 CHLORIDE (test code=CLI) 105 mmol/L 98-109 CA IONIZED (test code=ICAI) 1.15 mmol/L 1.12-1.32 GLUCOSE (test code=GLUI) 98 mg/dL 75-100 TCO2 (test code=TCO2) 23 mmol/L 24-29 BUN (test code=BUN1) 15 mg/dL 8-26 CREATININE (test code=CREAI) 0.6 mg/dL 0.6-1.3 ANION GAP (test code=GANG) 17.0 mmol/L HGB (test code=MHB) 14.3 g/dL 12.0-17.0 HCT (test code=MHCT) 42.0 % 38.0-51.0 CBC (INCLUDES AUTOMATED DIFFERENTIAL) *2018-12-04 11:05:00 Test Item Value Reference Range Comments WBC (test code=WBC) 8.1 10\S\3/uL 4.5-11.0 RBC (test code=RBC) 4.52 10\S\6/uL 4.30-5.70 HGB (test code=HBG) 13.4 g/dL 12.0-15.5 HCT (test code=HCT) 42.9 % 35.0-44.0 MCV (test code=MCV) 94.9 fL 81.0-99.0 MCH (test code=MCH) 29.6 pg 27.0-31.0 MCHC (test code=MCHC) 31.2 g/dL 32.0-36.0 RDW (test code=RDW) 13.9 % 11.5-14.5 PLT (test code=PLT) 333 10\S\3/uL 130-400 MPV (test code=OMPV) 8.1 fL 6.2-10.2 NEUTROP # (test code=NE#) 5.2 10\S\3/uL 1.6-8.0 LYMPH # (test code=LY#) 2.1 10\S\3/uL 1.1-3.5 MID # (test code=GMID#) 0.8 10\S\3/uL 0.0-1.1 GRA % (test code=GRA%) 64.2 % 35.0-73.0 LYMPH % (test code=GLY%) 26.0 % 20.0-55.0 MID % (test code=GMID%) 9.8 % 0.0-10.0 PROTHROMBIN TIME i-STAT OW2018-12-04 11:02:00 Test Item Value Reference Range Comments PT (test code=PT1) 12.2 s 10.0-13.0 INR (test code=INR) 1.0 INRH (test code=INRH) SUGGESTED THERAPEUTIC RANGE FOR INR: 2.5 - 3.5 For Patients with Prosthetic Valves or Patients with recurrent Thromboembolic Events 2.0 - 3.[address] ABDOMEN AND PELVIS WITH CONTRAST *OW*2018-11-11 05:31:13CT abdomen and pelvis with contrastLocation Code: [id number] HISTORY: [id number]: Lower abdominal painCOMPARISON: NoneTechnique: Helical CT of the abdomen and pelvis was performed followingthe administration of intravenous contrast. Thin section axial, [place] coronal images were obtained. Automatic exposure control was utilized. FINDINGS:The lung bases are clear. The liver, adrenal glands, kidneys, pancreas, and spleen are unremarkable.The gallbladder is The unopacified loops of bowel demonstrate no evidence of obstruction. Amoderate volume of stool seen throughout the colon compatible with clinicaldiagnosis of constipation. Questionable irregular thickening of the cecum canbe further evaluated with outpatient colonoscopy.The appendix is visualized andis normal. There is no free peritoneal air or fluid. Note is made of prominent bilateral adnexa left slightly more prominent thanthe right with a likely 1.3 cm left adnexal cyst. Likely multiple follicles areseen bilaterally, further evaluation with sonography could be performed asindicated.Mild bladder wall prominence, correlate with UA to exclude cystitisNo aggressive osseous lesions are seen. IMPRESSION: 1.A moderate volumeof stool seen throughout the colon compatible with clinicaldiagnosis of constipation 2.Note is made of prominent bilateral adnexa left slightly more prominent thanthe right with a likely 1.3 cm left adnexal cyst. Likely multiple follicles areseen bilaterally, further evaluation with sonography could be performed asindicated3. Mild bladder wall prominence, correlate with UA to exclude cystitis4. Questionable irregular thickening of the cecum can be further evaluated withoutpatient colonoscopy.DRUGS OF ABUSE*OW*2018-11-11 04:58: 00 Test Item Value Reference Range Comments DRUG SCRN (test code=HDOA) URINE DRUG SCREEN This is an unconfirmed screening result and should not be used for non-medical purposes PHENCYCLID (test code=GPCP) Negative NEGATIVE BENZODIAZE (test code=GBZO) Negative NEGATIVE COCAINE (test code=GCOC) Negative NEGATIVE AMPHETAMIN (test code=GAMP) Negative NEGATIVE THC (test code=GTHC) Positive NEGATIVE OPIATES (test code=OSMANI) Negative NEGATIVE BARBITURAT (test code=GBAR) Negative NEGATIVE TCA (test code=GTCA) Negative NEGATIVE DOAH (test code=DOAH) URINE DRUG SCREEN CUT OFF VALUES Amphetamines 1000 ng/mL Barbituates 300 ng/mL Benzodiazepines 300 ng/mL Cocaine 300 ng/mL Opiates 300 ng/mL Phencyclidine 25 ng/mL THC 50 ng/mL Tricyclic Antidepressants 1000 ng/mL URINALYSIS W/O MICROSCOPICOW2018-11-11 04:55:00 Test Item Value Reference Range Comments COLOR (test code=COLU) Yellow YELLOW CLARITY (test code=CLA) Clear CLEAR GLUCOSE UR (test code=UA Negative NEGATIVE GLUCOSE) BILI UR (test code=BILE) Negative NEGATIVE KETONES UR (test code=JOSE) Negative NEGATIVE SP GRAVITY (test code=SPGR) 1.020 1.005-1.030 PH UR (test code=PH) 7.5 4.5-8.0 PROTEIN UR (test code=PU) Negative NEGATIVE NITRITE UR (test Negative NEGATIVE code=NITRITE) UROBIL UR (test code=GUROQ) 0.2 E.U./dL UROBIL UR (test code=GUROQC) UROBILINOGEN REFERENCE RANGE 0.2 - 1.0 EU/dL BLOOD UR (test code=UA Negative NEGATIVE BLOOD) LEUK ES UR (test code=LEUK) 1+ NEGATIVE URINE OW2018-11-11 04:54:00 Test Item Value Reference Range Comments PREG UR (test code=PGU) Negative NEGATIVE CHEM8+ i-STAT OW2018-11-11 04:47:00 Test Item Value Reference Range Comments SODIUM (test code=MENG) 142 mmol/L 138-146 POTASSIUM (test code=KI) 3.5 mmol/L 3.5-4.9 CHLORIDE (test code=CLI) 103 mmol/L 98-109 CA IONIZED (test code=ICAI) 1.11 mmol/L 1.12-1.32 GLUCOSE (test code=GLUI) 117 mg/dL 75-100 TCO2 (test code=TCO2) 28 mmol/L 24-29 BUN (test code=BUN1) 13 mg/dL 8-26 CREATININE (test code=CREAI) 0.5 mg/dL 0.6-1.3 ANION GAP (test code=GANG) 16.0 mmol/L HGB (test code=MHB) 12.9 g/dL 12.0-17.0 HCT (test code=MHCT) 38.0 % 38.0-51.0 LACTIC ACID OW2018-11-11 04:47:00 Test Item Value Reference Range Comments LACTATE (test code=TACHO) 1.0 mmol/L 0.9-1.7 CBC (INCLUDES AUTOMATED DIFFERENTIAL) *2018-11-11 04:37:00 Test Item Value Reference Range Comments WBC (test code=WBC) 8.7 10\S\3/uL 4.5-11.0 RBC (test code=RBC) 4.35 10\S\6/uL 4.30-5.70 HGB (test code=HBG) 14.3 g/dL 12.0-15.5 HCT (test code=HCT) 39.9 % 35.0-44.0 MCV (test code=MCV) 91.8 fL 81.0-99.0 MCH (test code=MCH) 32.9 pg 27.0-31.0 MCHC (test code=MCHC) 35.8 g/dL 32.0-36.0 RDW (test code=RDW) 13.5 % 11.5-14.5 PLT (test code=PLT) 294 10\S\3/uL 130-400 MPV (test code=OMPV) 8.6 fL 6.2-10.2 NEUTROP # (test code=NE#) 5.2 10\S\3/uL 1.6-8.0 LYMPH # (test code=LY#) 2.7 10\S\3/uL 1.1-3.5 MID # (test code=GMID#) 0.8 10\S\3/uL 0.0-1.1 GRA % (test code=GRA%) 60.0 % 35.0-73.0 LYMPH % (test code=GLY%) 31.3 % 20.0-55.0 MID % (test code=GMID%) 8.7 % 0.0-10.0 XR CHEST 2 VIEW *OW*2018-10-12 07:25:[id number]: XR CHEST 2 VIEW *OW*HISTORY: [id number]: CoughCOMPARISON: 08/08/18INDINGS: The lungs are clear. No pleural effusion or pneumothorax. The cardiacsilhouette is within normal limits. No acute osseous abnormalities.IMPRESSION:No acute cardiopulmonary disease.CBC ( INCLUDES AUTOMATED DIFFERENTIAL) *2018-10-12 06:46:00 Test Item Value Reference Range Comments WBC (test code=WBC) 9.0 10\S\3/uL 4.5-11.0 RBC (test code=RBC) 4.03 10\S\6/uL 4.30-5.70 HGB (test code=HBG) 12.9 g/dL 12.0-15.5 HCT (test code=HCT) 37.6 % 35.0-44.0 MCV (test code=MCV) 93.2 fL 81.0-99.0 MCH (test code=MCH) 32.0 pg 27.0-31.0 MCHC (test code=MCHC) 34.3 g/dL 32.0-36.0 RDW (test code=RDW) 13.9 % 11.5-14.5 PLT (test code=PLT) 177 10\S\3/uL 130-400 MPV (test code=OMPV) 8.4 fL 6.2-10.2 NEUTROP # (test code=NE#) 3.6 10\S\3/uL 1.6-8.0 LYMPH # (test code=LY#) 4.5 10\S\3/uL 1.1-3.5 MID # (test code=GMID#) 0.9 10\S\3/uL 0.0-1.1 GRA % (test code=GRA%) 39.9 % 35.0-73.0 LYMPH % (test code=GLY%) 49.8 % 20.0-55.0 MID % (test code=GMID%) 10.3 % 0.0-10.0 THROAT [id number] 07:45:00 Test Item Value Reference Range Comments Culture Observations (test NO BETA HEMOLYTIC code=COB1) STREPTOCOCCUS ISOLATED URINE OW2018-08-08 15:44:00 Test Item Value Reference Range Comments PREG UR (test code=PGU) Negative NEGATIVE INFLUENZA A AND B OW2018-08-08 15:31:00 Test Item Value Reference Range Comments INFLUENZ A (test code=INFA) NEGATIVE NEGATIVE INFLUENZ B (test code=INFB) NEGATIVE NEGATIVE URINALYSIS W/O MICROSCOPICOW2018-08-08 15:29:00 Test Item Value Reference Range Comments COLOR (test code=COLU) Yellow YELLOW CLARITY (test code=CLA) Clear CLEAR GLUCOSE UR (test code=UA Negative NEGATIVE GLUCOSE) BILI UR (test code=BILE) Negative NEGATIVE KETONES UR (test code=JOSE) Trace NEGATIVE SP GRAVITY (test code=SPGR) 1.025 1.005-1.030 PH UR (test code=PH) 5.5 4.5-8.0 PROTEIN UR (test code=PU) Negative NEGATIVE NITRITE UR (test Negative NEGATIVE code=NITRITE) UROBIL UR (test code=GUROQ) 0.2 E.U./dL UROBIL UR (test code=GUROQC) UROBILINOGEN REFERENCE RANGE 0.2 - 1.0 EU/dL BLOOD UR (test code=UA Negative NEGATIVE BLOOD) LEUK ES UR (test code=LEUK) Trace NEGATIVE DIRECT STREP GROUP AOW2018-08-08 15:08:00 Test Item Value Reference Range Comments STREP A AG (test code=STREP) NEGATIVE NEGATIVE CBC (INCLUDES AUTOMATED DIFFERENTIAL) *2018-08-08 14:53:00 Test Item Value Reference Range Comments WBC (test code=WBC) 8.6 10\S\3/uL 4.5-11.0 RBC (test code=RBC) 4.54 10\S\6/uL 4.30-5.70 HGB (test code=HBG) 14.4 g/dL 12.0-15.5 HCT (test code=HCT) 41.6 % 35.0-44.0 MCV (test code=MCV) 91.6 fL 81.0-99.0 MCH (test code=MCH) 31.7 pg 27.0-31.0 MCHC (test code=MCHC) 34.6 g/dL 32.0-36.0 RDW (test code=RDW) 13.4 % 11.5-14.5 PLT (test code=PLT) 281 10\S\3/uL 130-400 MPV (test code=OMPV) 8.1 fL 6.2-10.2 NEUTROP # (test code=NE#) 5.5 10\S\3/uL 1.6-8.0 LYMPH # (test code=LY#) 2.4 10\S\3/uL 1.1-3.5 MID # (test code=GMID#) 0.7 10\S\3/uL 0.0-1.1 GRA % (test code=GRA%) 63.8 % 35.0-73.0 LYMPH % (test code=GLY%) 27.7 % 20.0-55.0 MID % (test code=GMID%) 8.5 % 0.0-10.0 CHEM8+ i-STAT OW2018-08-08 14:53:00 Test Item Value Reference Range Comments SODIUM (test code=MENG) 140 mmol/L 138-146 POTASSIUM (test code=KI) 3.7 mmol/L 3.5-4.9 CHLORIDE (test code=CLI) 104 mmol/L 98-109 CA IONIZED (test code=ICAI) 1.16 mmol/L 1.12-1.32 GLUCOSE (test code=GLUI) 94 mg/dL 75-100 TCO2 (test code=TCO2) 22 mmol/L 24-29 BUN (test code=BUN1) 11 mg/dL 8-26 CREATININE (test code=CREAI) 0.5 mg/dL 0.6-1.3 ANION GAP (test code=GANG) 19.0 mmol/L HGB (test code=MHB) 15.6 g/dL 12.0-17.0 HCT (test code=MHCT) 46.0 % 38.0-51.0 XR CHEST 2 VIEW *OW*2018-08-08 14:39:21PA and lateral chest, 2 viewsLocation code: [id number] HISTORY: Chest painCOMPARISON: NoneCOMMENTS:The lungs are clear and well inflated. The costophrenic angles aresharp. The cardiomediastinal silhouette is unremarkable. The bones are intact.IMPRESSION: No acute abnormality
== END 2019-06-23 18:24 | disposition home or self-care (01) ==
LOC: ER 13:08
DX: G89.29 Other chronic pain (principal); M06.9 Rheumatoid arthritis, unspecified
CPT/HCPCS: 36415; 71045; 80048; 85025; 87804; 96374; 99284; J7512

== ENCOUNTER 2019-07-10 05:57 | Emergency (ER) | payer SELFPAY ==
--- OUTSIDE RECORDS SUMMARY | 2019-07-10 06:01 | XMS REPORT ---
:1980 Author Organization [facility] Address [address] [place] [address] Care Team Providers Name Role Phone JEANNINE, DR WHATLEY Unavailable Unavailable CINDI, DR KEYUR Elias Unavailable Unavailable POTVIGNESHV, DR MARKELL Madison Unavailable Unavailable MAUREEN, DR CARPENTER Unavailable Unavailable MING, DR SUZIE Downing Unavailable Unavailable NICOLETTE, DR LEACH Unavailable Unavailable CHAMBERS, DR DARÍO Newton Unavailable Unavailable Problems This patient has no known problems. Allergies, Adverse Reactions, Alerts This patient has no known allergies or adverse reactions. Medications This patient has no known medications. Encounters Start End Encounter Admission Attending Care Care Encounter Date/Time Date/Time Type Type Clinicians Facility Department ID 2019-01-07 2019-01-07 Outpatient E JEANNINE, [facility] [id number] 10:23:00 12:27:00 PHYLICIA 2018-12-04 2018-12-04 Outpatient E CINDI [facility] [id number] 10:20:00 15:57:00 KEYUR 2018-11-11 2018-11-11 Outpatient E GILBERT [facility] [id number] 04:05:00 06:00:00 MARKELL 2018-10-12 2018-10-12 Outpatient E PAULINE REDDY [facility] [id number] 06:24:00 08:08:00 2018-09-30 2018-09-30 Outpatient E MING [facility] [id number] 13:45:00 14:12:00 SUZIE 2018-09-04 2018-09-04 Outpatient E MING [facility] [id number] 17:32:00 18:30:00 SUZIE 2018-08-19 2018-08-19 Outpatient E HANY WILL [facility] [id number] 08:43:00 10:15:00 2018-08-08 2018-08-08 Outpatient E TRISH [facility] [id number] 13:34:00 16:43:00 DARÍO Results Test Description Test [...] 05:31:13CT abdomen and pelvis with contrastLocation Code: [id number] HISTORY: [id number]: Lower abdominal painCOMPARISON: NoneTechnique: Helical CT of [...] % 0.0-10.0 XR CHEST 2 VIEW *OW*2018-10-12 07:25:76C04OURA: XR CHEST 2 VIEW *OW*HISTORY: [id number]: CoughCOMPARISON: 08/08/18INDINGS: The lungs are clear. No [...] % (test code=GMID%) 10.3 % 0.0-10.0 THROAT [id number] 07:45:00 Test Item Value Reference Range Comments [...] 14:39:21PA and lateral chest, 2 viewsLocation code: [id number] HISTORY: Chest painCOMPARISON: NoneCOMMENTS:The lungs are clear and well inflated. The costophrenic angles aresharp. The cardiomediastinal silhouette is unremarkable. The bones are intact.IMPRESSION: No acute abnormality
[2019-07-10] MEDS ORDERED: NA CHLORIDE 0.9% 1,000 ML ONE (06:21)
[2019-07-10] MEDS ORDERED: ALBUTEROL 2.5 MG/3 ML NEB SOL ONE ×2 (06:21→07:57)
[2019-07-10] MEDS ORDERED: IPRATROPIUM BROM 0.5MG/2.5ML ONE (06:21)
--- NOTE | 2019-07-10 06:43 | ER ---
Nurse's Notes [facility] Name: Serenity Collins Age: 38 yrs Sex: Female : 1980 Arrival Date: 07/10/2019 Time: 06:00 Bed 6 Private MD: Diagnosis: Acute upper respiratory infection, unspecified;Bronchitis, not specified as acute or chronic;Pleurisy Presentation: 07/10 06:08 Presenting complaint: Patient states: difficulty breathing and pain in R rib cage with aa1 inspiration x 1 month. Reports marijuana use. States, "I thought maybe I was smoking too much or I hit it too hard but I just can't figure out what it could be.". Transition of care: patient was not received from another setting of care. Onset of symptoms was May 2019. Risk Assessment: Do you want to hurt yourself or someone else? Patient reports no desire to harm self or others. Initial Sepsis Screen: Does the patient meet any 2 criteria? No. Patient's initial sepsis screen is negative. Does the patient have a suspected source of infection? No. Patient's initial sepsis screen is negative. Care prior to arrival: None. 06:08 Method Of Arrival: Wheelchair aa1 06:08 Acuity: MARY 3 aa1 Triage Assessment: 06:10 General: Appears in no apparent distress. uncomfortable, Behavior is calm, cooperative, aa1 appropriate for age. 06:20 Respiratory: the patient has mild shortness of breath. 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 - Social history:: Smoking status: Patient/guardian denies using tobacco, Patient uses street drugs, marijuana. - Ebola Screening: : Patient denies exposure to infectious person Patient denies travel to an Ebola-affected area in the 21 days before illness onset. - Family history:: not pertinent. Screenin:57 Abuse screen: Denies threats or abuse. Denies injuries from another. Nutritional rr5 screening: No deficits noted. Tuberculosis screening: No symptoms or risk factors identified. Fall Risk IV access (20 points). Gait- Impaired (20 pts.). Total Fish Fall Scale indicates Low Risk Score (25-44 pts). Fall prevention measures have been instituted. Side Rails Up X 2 Placed close to Nursing Station Frequent Obs/Assesments occuring As available Patient and Family Educated on Fall Prevention Program and strategies. Assessment: 06:20 General: Appears uncomfortable, mild distress. Behavior is calm, cooperative, rr5 appropriate for age. Pain: Complains of pain in right chest Pain radiates to right scapular area Pain currently is 10 out of 10 on a pain scale. Quality of pain is described as aching, Pain began gradually, Is intermittent. 06:20 Neuro: Level of Consciousness is awake, alert, obeys commands, Oriented to person, rr5 place, time, situation, Appropriate for age. Cardiovascular: Capillary refill < 3 seconds Patient's skin is warm and dry. Rhythm is regular. Respiratory: Reports pain with respiration Pain is 10 out of 10 on a pain scale. Airway is patent Respiratory effort is even, pursed lip, shallow, Respiratory pattern is regular. 06:20 GI: No signs and/or symptoms were reported involving the gastrointestinal system. : rr5 No signs and/or symptoms were reported regarding the genitourinary system. EENT: No signs and/or symptoms were reported regarding the EENT system. Derm: Skin is intact, is healthy with good turgor, Skin temperature is warm. Musculoskeletal: Circulation, motion, and sensation intact. Capillary refill < 3 seconds. 07:15 Reassessment: Assisted pt to bedside commode to urinate, obtained urine sample at this ae4 time. 07:15 Reassessment: Patient appears in no apparent distress at this time. Neuro: Level of ae4 Consciousness is awake, alert, obeys commands, Oriented to person, place, time, situation, Appropriate for age. 08:00 Reassessment: Pt will be discharged once fluids are done infusing. jl7 08:10 Reassessment: IV medication infusing, will continue to monitor. ae4 08:22 Respiratory: Breath sounds are clear bilaterally. ae4 08:45 Reassessment: Pt denies discomfort, denies lightheadedness, reports "I feel a lot jl7 better." Pt ambulated with cane with steady gate out of the ER. Vital Signs: 06:10 BP 130 / 80; Pulse 94; Resp 18; Temp 98.4; Pulse Ox 99% on R/A; Weight 72.57 kg; Height aa1 5 ft. 2 in. (157.48 cm); Pain 10/10; 08:09 BP 134 / 69; Pulse 102; Resp 19; Pulse Ox 100% on Nebulizer Mask; ae4 06:10 Body Mass Index 29.26 (72.57 kg, 157.48 cm) aa1 ED Course: 06:00 Patient arrived in ED. es 06:02 Francis Foreman MD is Attending Physician. carmen 06:10 Triage completed. aa1 06:10 Arm band placed on right wrist. aa1 06:10 Patient has correct armband on for positive identification. Placed in gown. Bed in low rr5 position. Call light in reach. Side rails up X2. 06:10 ekg monitor tech on. Pulse ox on. NIBP on. rr5 06:18 Campos Schaffer RN is Primary Nurse. rr5 06:20 Initial Neb Treatment Given as ordered Patient was instructed and evaluated on rr5 procedure. 06:27 XRAY Chest (1 view) In Process Unspecified. EDMS 06:40 Ben Snell MD is Hospitalizing Provider. carmen 06:40 Inserted saline lock: 20 gauge in left antecubital area, using aseptic technique. Blood rr5 collected. 07:04 CT Chest For PE Angio In Process Unspecified. EDMS 07:15 EKG done, by ED staff, reviewed by Francis Foreman MD. dh3 07:36 Burak Acosta MD is Referral Physician. carmen 08:45 No provider procedures requiring assistance completed. IV discontinued, intact, jl7 bleeding controlled, No redness/swelling at site. Pressure dressing applied. Administered Medications: 06:20 Drug: Albuterol 2.5 mg Route: Inhalation; rr5 07:00 Follow up: Response: No adverse reaction jl7 06:20 Drug: AtroVENT Aerosol 0.5 mg Route: Inhalation; rr5 07:00 Follow up: Response: No adverse reaction jl7 07:10 Drug: morphine 2 mg Route: IVP; Site: left antecubital; ae4 07:30 Follow up: Response: No adverse reaction; Pain is decreased jl7 07:14 Drug: Zofran 4 mg Route: IVP; Site: left antecubital; ae4 08:06 Follow up: Response: Nausea is decreased ae4 07:15 Drug: NS 0.9% 1000 ml Route: IV; Rate: 1 bolus; Site: left antecubital; ae4 08:06 Follow up: IV Status: Completed infusion ae4 07:20 Drug: levofloxacin 500 mg Volume: 100 ml; Route: IVPB; Infused Over: 60 mins; Site: ae4 left antecubital; 08:20 Follow up: Response: No adverse reaction; IV Status: Completed infusion jl7 07:50 Drug: predniSONE 60 mg Route: PO; ae4 08:46 Follow up: Response: No adverse reaction jl7 07:55 Drug: SOLU-Medrol 125 mg Route: IVP; Site: left antecubital; ae4 08:47 Follow up: Response: No adverse reaction jl7 08:00 Drug: TORadol 30 mg Route: IVP; Site: left antecubital; ae4 08:30 Follow up: Response: No adverse reaction; Pain is decreased jl7 08:00 Drug: Albuterol 2.5 mg Route: Inhalation; ae4 Outcome: 06:42 Decision to Hospitalize by Provider. carmen 07:38 Discharge ordered by . carmen 08:45 Discharged to home ambulatory. jl7 08:45 Condition: stable 08:45 Discharge instructions given to patient, Instructed on discharge instructions, follow up and referral plans. medication usage, Demonstrated understanding of instructions, follow-up care, medications, Prescriptions given X 4. 08:46 Patient left the ED. jl7 Signatures: Dispatcher [employer] EDBreann Forde RN RN aa1 Francis Foreman MD MD cha Salyer, Edna es Leal, Jahala, RN RN jl7 Gail Jolley 3 Campos Schaffer RN RN rr5 Aron Segal RN RN ae4 Corrections: (The following items were deleted from the chart) 06:57 06:20 General: Appears in no apparent distress. uncomfortable, Behavior is calm, rr5 cooperative, appropriate for age, rr5 07:09 06:20 Respiratory: Breath sounds are diminished rr5 rr5 08:10 07:15 Respiratory: ae4 ae4
--- NOTE | 2019-07-10 06:43 | EDPHYS ---
Physician Documentation [facility] Name: Serenity Collins Age: 38 yrs Sex: Female : 1980 Arrival Date: 07/10/2019 Time: 06:00 Bed 6 Private MD: LALO Physician Francis Foreman HPI: 07/10 06:37 This 38 yrs old Female presents to ER via Wheelchair with complaints of carmen Breathing Difficulty, RT lung pain. 06:37 The patient has shortness of breath at rest, with light activity. Onset: The carmen symptoms/episode began/occurred 5 day(s) ago. Duration: The symptoms are continuous, and are steadily getting worse. The patient's shortness of breath has no apparent modifying factors. Severity of symptoms: At their worst the symptoms were mild in the emergency department the symptoms have resolved. The patient has not experienced similar symptoms in the past. 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 - Social history:: Smoking status: Patient/guardian denies using tobacco, Patient uses street drugs, marijuana. - Ebola Screening: : Patient denies exposure to infectious person Patient denies travel to an Ebola-affected area in the 21 days before illness onset. - Family history:: not pertinent. ROS: 06:37 Constitutional: Negative for fever, chills, and weight loss, Eyes: Negative for injury, carmen pain, redness, and discharge, ENT: Negative for injury, pain, and discharge, Neck: Negative for injury, pain, and swelling, Cardiovascular: Negative for chest pain, palpitations, and edema, Abdomen/GI: Negative for abdominal pain, nausea, vomiting, diarrhea, and constipation, Back: Negative for injury and pain, : Negative for injury, bleeding, discharge, and swelling, MS/Extremity: Negative for injury and deformity, Skin: Negative for injury, rash, and discoloration, Neuro: Negative for headache, weakness, numbness, tingling, and seizure. Exam: 06:39 Constitutional: This is a well developed, well nourished patient who is awake, alert, carmen and in no acute distress. Head/Face: Normocephalic, atraumatic. Eyes: Pupils equal round and reactive to light, extra-ocular motions intact. Lids and lashes normal. Conjunctiva and sclera are non-icteric and not injected. Cornea within normal limits. Periorbital areas with no swelling, redness, or edema. ENT: Nares patent. No nasal discharge, no septal abnormalities noted. Tympanic membranes are normal and external auditory canals are clear. Oropharynx with no redness, swelling, or masses, exudates, or evidence of obstruction, uvula midline. Mucous membranes moist. Neck: Trachea midline, no thyromegaly or masses palpated, and no cervical lymphadenopathy. Supple, full range of motion without nuchal rigidity, or vertebral point tenderness. No Meningismus. Chest/axilla: Normal chest wall appearance and motion. Nontender with no deformity. No lesions are appreciated. Cardiovascular: Regular rate and rhythm with a normal S1 and S2. No gallops, murmurs, or rubs. Normal PMI, no JVD. No pulse deficits. Abdomen/GI: Soft, non-tender, with normal bowel sounds. No distension or tympany. No guarding or rebound. No evidence of tenderness throughout. Back: No spinal tenderness. No costovertebral tenderness. Full range of motion. Pelvic Exam: Normal external genitalia. Speculum exam with closed cervical os, no discharge or bleeding noted. Bimanual exam with normal adnexa, no adnexal or cervical motion tenderness. Normal uterus. Female : Normal external genitalia. 06:39 Respiratory: mild respiratory distress is noted, Respirations: asymmetrical chest movement, accessory muscle usage, grunting, Breath sounds: decreased breath sounds, that are mild. 07:35 Musculoskeletal/extremity: DVT Exam: No signs of deep vein thrombosis. no pain, no carmen swelling, no tenderness, negative Homans' sign noted on exam, no appreciated bluish discoloration, no erythema, no increased warmth. Vital Signs: 06:10 BP 130 / 80; Pulse 94; Resp 18; Temp 98.4; Pulse Ox 99% on R/A; Weight 72.57 kg; Height aa1 5 ft. 2 in. (157.48 cm); Pain 10/10; 08:09 BP 134 / 69; Pulse 102; Resp 19; Pulse Ox 100% on Nebulizer Mask; ae4 06:10 Body Mass Index 29.26 (72.57 kg, 157.48 cm) aa1 MDM: 06:02 Patient medically screened. [facility] 06:40 Data reviewed: vital signs, nurses notes, lab test result(s), EKG, radiologic studies, [facility] CT scan, plain films. 07/10 06:13 Order name: Basic Metabolic Panel; Complete Time: 07:26 [facility] 07/10 06:13 Order name: CBC with Diff; Complete Time: 07:18 [facility] 07/10 06:13 Order name: LFT's; Complete Time: 07:26 [facility] 07/10 06:13 Order name: Magnesium; Complete Time: 07:27 [facility] 07/10 06:13 Order name: NT PRO-BNP; Complete Time: 07:27 [facility] 07/10 06:13 Order name: PT-INR; Complete Time: 07:18 [facility] 07/10 06:13 Order name: Troponin (emerg Dept Use Only); Complete Time: 07:27 [facility] 07/10 06:13 Order name: XRAY Chest (1 view) [facility] 07/10 06:13 Order name: UDS [facility] 07/10 06:13 Order name: CT Chest For PE Angio; Complete Time: 07:34 [facility] 07/10 06:37 Order name: Blood Culture Adult (2) [facility] 07/10 07:40 Order name: Urine Dipstick--Ancillary (enter results) [place] 07/10 07:40 Order name: Urine --Ancillary (enter results) [place] 07/10 06:13 Order name: EKG; Complete Time: 06:15 [facility] 07/10 06:13 Order name: Cardiac monitoring; Complete Time: 06:52 [facility] 07/10 06:13 Order name: EKG - Nurse/Tech; Complete Time: 07:19 [facility] 07/10 06:13 Order name: IV Saline Lock; Complete Time: 06:52 [facility] 07/10 06:13 Order name: Labs collected and sent; Complete Time: 06:53 [facility] 07/10 06:13 Order name: O2 Per Protocol; Complete Time: 06:53 [facility] 07/10 06:13 Order name: O2 Sat Monitoring; Complete Time: 06:53 [facility] 07/10 06:13 Order name: Urine Test (obtain specimen); Complete Time: 07:45 carmen Administered Medications: 06:20 Drug: Albuterol 2.5 mg Route: Inhalation; rr5 07:00 Follow up: Response: No adverse reaction jl7 06:20 Drug: AtroVENT Aerosol 0.5 mg Route: Inhalation; rr5 07:00 Follow up: Response: No adverse reaction jl7 07:10 Drug: morphine 2 mg Route: IVP; Site: left antecubital; ae4 07:30 Follow up: Response: No adverse reaction; Pain is decreased jl7 07:14 Drug: Zofran 4 mg Route: IVP; Site: left antecubital; ae4 08:06 Follow up: Response: Nausea is decreased ae4 07:15 Drug: NS 0.9% 1000 ml Route: IV; Rate: 1 bolus; Site: left antecubital; ae4 08:06 Follow up: IV Status: Completed infusion ae4 07:20 Drug: levofloxacin 500 mg Volume: 100 ml; Route: IVPB; Infused Over: 60 mins; Site: ae4 left antecubital; 08:20 Follow up: Response: No adverse reaction; IV Status: Completed infusion jl7 07:50 Drug: predniSONE 60 mg Route: PO; ae4 08:46 Follow up: Response: No adverse reaction jl7 07:55 Drug: SOLU-Medrol 125 mg Route: IVP; Site: left antecubital; ae4 08:47 Follow up: Response: No adverse reaction jl7 08:00 Drug: TORadol 30 mg Route: IVP; Site: left antecubital; ae4 08:30 Follow up: Response: No adverse reaction; Pain is decreased jl7 08:00 Drug: Albuterol 2.5 mg Route: Inhalation; ae4 Disposition: 07/10/19 07:38 Discharged to Home. Impression: Acute upper respiratory infection, unspecified, Bronchitis, not specified as acute or chronic, Pleurisy. - Condition is Stable. - Discharge Instructions: Acute Bronchitis, Adult, Pleurisy, Upper Respiratory Infection, Adult, Cool Mist Vaporizer, Upper Respiratory Infection, Adult, [id number], Cough, Adult. - Prescriptions for Tylenol- Codeine #3 300-30 mg Oral Tablet - take 2 tablet by ORAL route every 6 hours As needed; 30 tablet. Medrol (Hair) 4 mg Oral Tablets, Dose Pack - take 1 tablet by ORAL route as directed - follow package instructions; 1 packet. Albuterol Sulfate 90 mcg/actuation - inhale 1-2 puff by INHALATION route every 4-6 hours; 1 Inhaler. Levaquin 500 mg Oral Tablet - take 1 tablet by ORAL route once daily for 7 days; 7 tablet. - Medication Reconciliation Form, Thank You Letter, Antibiotic Education, Prescription Opioid Use form. - Follow up: Private Physician; When: 2 - 3 days; Reason: Recheck today's complaints, Continuance of care, Re-evaluation by your physician. Follow up: Burak Acosta MD; When: As needed; Reason: If symptoms return, Recheck today's complaints, Continuance of care, Re-evaluation by your physician. - Problem is new. - Symptoms have improved. Signatures: Dispatcher [employer] EDBreann Forde RN RN aa1 Francis Foreman MD MD cha Leal, Jahala, RN RN jl7 Campos Schaffer RN RN rr5 Aron Segal RN RN ae4 Corrections: (The following items were deleted from the chart) 07:35 06:42 Hospitalization Ordered by Ben Snell MD for Inpatient Admission. Preliminary carmen diagnosis is Pleurisy; Cough; Chest pain on breathing; Chest pain, unspecified; Tobacco abuse counseling; Tobacco use. Bed requested for Telemetry/MedSurg (observation). Status is Inpatient Admission. Condition is Fair. Problem is new. Symptoms have improved. UTI on Admission? No. carmen 08:46 07:38 07/10/2019 07:38 Discharged to Home. Impression: Acute upper respiratory jl7 infection, unspecified; Bronchitis, not specified as acute or chronic; Pleurisy. Condition is Stable. Forms are Medication Reconciliation Form, Thank You Letter, Antibiotic Education, Prescription Opioid Use. Follow up: Private Physician; When: 2 - 3 days; Reason: Recheck today's complaints, Continuance of care, Re-evaluation by your physician. Follow up: Burak Acosta; When: As needed; Reason: If symptoms return, Recheck today's complaints, Continuance of care, Re-evaluation by your physician. Problem is new. Symptoms have improved. carmen
[2019-07-10] MEDS ORDERED: MORPHINE 2 MG/ML SYR ONE (06:52)
[2019-07-10] MEDS ORDERED: ONDANSETRON 4 MG/2 ML VIAL ONE (06:52)
[2019-07-10] MEDS ORDERED: Levofloxacin500mg IV 500 MG/100 ML BAG IV ONE (06:52)
[2019-07-10] MEDS ORDERED: KETOROLAC 30 MG/ML INJ ONE (06:52)
[2019-07-10 07:00] LABS: Protime INR 0.89
[2019-07-10 07:04] LABS: Basophils % 0.7 % (0-1.3); Hematocrit 39.1 % (36.0-45.0); Lymphocytes % 16.4 % (15.3-44.8); MPV 9.1 fL (7.6-11.3)
[2019-07-10 07:20] LABS: ALT/SGPT 25 U/L (12-78); AST/SGOT 11 U/L (15-37); Albumin 3.4 g/dL (3.4-5.0); Alkaline Phosphatase 66 U/L (45-117); BUN Blood Urea Nitrogen 16 mg/dL (7-18); Bicarbonate 22 mmol/L (21-32); Bilirubin Direct < 0.1 mg/dL (0-0.2); Bilirubin Total 0.3 mg/dL (0.2-1.0); Glucose Level 126 mg/dL (74-106); Magnesium 2.3 mg/dL (1.8-2.4); NT PRO-BNP 16 pg/mL (<125); Potassium 4.1 mmol/L (3.5-5.1); Protein, Total 6.9 g/dL (6.4-8.2); Sodium Level 139 mmol/L (136-145); Troponin (Emerg Dept Use Only) < 0.02 ng/mL (0.0-0.045)
--- NOTE | 2019-07-10 07:30 | RAD REPORT ---
EXAM DESCRIPTION: CT - Chest For Pe Angio - 07/10/2019 7:04 am CLINICAL HISTORY: Chest pain;Dyspnea COMPARISON: Chest Single View dated 07/10/2019 TECHNIQUE: Dynamically enhanced 3 mm thick images of the chest were obtained during administration o f approximately 150mL Isovue 370 IV contrast. Coronal and oblique MIP reconstruction images were gene rated and reviewed. Exam utilizes a protocol to evaluate the pulmonary arterial tree. All CT scans are performed using dose optimization technique as appropriate and may include automated exposure control or mA/KV adjustment according to patient size. FINDINGS: No pulmonary emboli are identified. The aorta as imaged shows no acute or suspicious finding. No pericardial thickening or effusion. No infiltrate or mass in the lung parenchyma. No pleural effusion or pleural thickening. No mediastinal or hilar suspicious masses. No chest wall masses or abnormal axillary lymphadenopathy. No fracture or other rib deformity. Partially imaged right shoulder joint without acute finding. IMPRESSION: No pulmonary emboli identified. No other significant or suspicious findings.
[2019-07-10 07:44] LABS: Urine Blood NEGATIVE (NEG); Urine Glucose NEGATIVE (NEG); Urine Protein NEGATIVE (NEG); Urine pH 5.5 (5.0-7.0)
[2019-07-10 07:52] LABS: Urine Specific Gravity <1.005 (1.005-1.030)
[2019-07-10] MEDS ORDERED: METHYLPREDNISOLONE 125 MG INJ ONE (07:57)
[2019-07-10 07:58] LABS: Barbiturates NEGATIVE (NEGATIVE); Benzodiazepines NEGATIVE (NEGATIVE); Cocaine NEGATIVE (NEGATIVE); METHAMPHETAM NEGATIVE (NEGATIVE); Methadone NEGATIVE (NEGATIVE); Opiates NEGATIVE (NEGATIVE); Phencyclidine NEGATIVE (NEGATIVE); THC Cannibis POSITIVE (NEGATIVE)
[2019-07-10] MEDS ORDERED: predniSONE 20 MG TAB ONE ×2 (07:58→08:30)
--- NOTE | 2019-07-10 08:24 | RAD REPORT ---
EXAM DESCRIPTION: RAD - Chest Single View - 07/10/2019 6:28 am CLINICAL HISTORY: Chest pain, rib pain COMPARISON: June 23 TECHNIQUE: AP portable chest image was obtained 0625 hours . FINDINGS: Lungs are clear. Heart and vasculature are normal. No measurable pleural effusion and no p neumothorax. No acute bony abnormality seen. No acute aortic findings suspected. IMPRESSION: No acute cardiopulmonary process.
[2019-07-10 09:45] VITALS: TEMP 98.4
[2019-07-10 09:46] VITALS: BP 134/69; O2SAT 100
--- NOTE | 2019-07-11 09:37 | EKG ---
Test Date: 2019-07-10 Test Time: 07:12:57 Full Decator Operator: ASHLEIGH MEASUREMENT RESULTS: Intervals: Rate: 96 AR: 130 QRSD: 78 QT: 350 QTc: 442 Mcdaniels: P: 63 AR: 130 QRS: 0 T: 37 INTERPRETIVE STATEMENTS: Normal sinus rhythm Normal ECG Compared to ECG 06/08/2012 15:20:22 No significant changes Electronically Signed On 07-11-19 09:36:19 MEDICINE MAN by Charlie Francisco
== END 2019-07-10 08:46 | disposition home or self-care (01) ==
LOC: ER 05:57
DX: J40 Bronchitis, not specified as acute or chronic (principal); R09.1 Pleurisy; Z91.018 Allergy to other foods
CPT/HCPCS: 36415; 71045; 71275; 80048; 80076; 80307; 81003; 81025; 83735; 83880; 84484; 85025; 85610; 87040; 93005; 96365; 96375; 99285; J2270; J2405; J2930; J7030; J7512; Q9967

== ENCOUNTER 2019-08-04 09:39 | Emergency (ER) | payer SELFPAY ==
--- OUTSIDE RECORDS SUMMARY | 2019-08-04 09:41 | XMS REPORT ---
:1980 [facility] [address] [place] [address] Care Team Providers Name Role Phone JEANNINE, [...] Department ID 2019-01-07 2019-01-07 Outpatient E JEANNINE, [facility] [id number] 10:23:00 12:27:00 PHYLICIA 2018-12-04 2018-12-04 Outpatient E CINDI [facility] [id number] 10:20:00 15:57:00 KEYUR 2018-11-11 2018-11-11 Outpatient E GILBERT [facility] [id number] 04:05:00 06:00:00 MARKELL 2018-10-12 2018-10-12 Outpatient E PAULINE REDDY [facility] [id number] 06:24:00 08:08:00 2018-09-30 2018-09-30 Outpatient E MING [facility] [id number] 13:45:00 14:12:00 SUZIE 2018-09-04 2018-09-04 Outpatient E MING [facility] [id number] 17:32:00 18:30:00 SUZIE 2018-08-19 2018-08-19 Outpatient E HANY WILL [facility] [id number] 08:43:00 10:15:00 2018-08-08 2018-08-08 Outpatient E TRISH [facility] [id number] 13:34:00 16:43:00 DARÍO Results Test Description Test [...] 05:31:13CT abdomen and pelvis with contrastLocation Code: [id number] HISTORY: [id number]: Lower abdominal painCOMPARISON: NoneTechnique: Helical CT of [...] % 0.0-10.0 XR CHEST 2 VIEW *OW*2018-10-12 07:25:01W78RQEY: XR CHEST 2 VIEW *OW*HISTORY: [id number]: CoughCOMPARISON: 08/08/18INDINGS: The lungs are clear. No [...] % (test code=GMID%) 10.3 % 0.0-10.0 THROAT [id number] 07:45:00 Test Item Value Reference Range Comments [...] 14:39:21PA and lateral chest, 2 viewsLocation code: [id number] HISTORY: Chest painCOMPARISON: NoneCOMMENTS:The lungs are clear and well inflated. The costophrenic angles aresharp. The cardiomediastinal silhouette is unremarkable. The bones are intact.IMPRESSION: No acute abnormality
--- NOTE | 2019-08-04 10:02 | ER ---
Nurse's Notes [facility] Name: Serenity Collins Age: 39 yrs Sex: Female : 1980 Arrival Date: 08/04/2019 Time: 09:42 Bed 7 Private MD: Diagnosis: Dental caries Presentation: 08/04 09:46 Presenting complaint: Patient states: vomiting since this morning. 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 Transition of care: patient was not received from another setting of care. Onset of symptoms was August 04, 2019. Risk Assessment: Do you want to hurt yourself or someone else? Patient reports no desire to harm self or others. Initial Sepsis Screen: Does the patient have a suspected source of infection? No. Patient's initial sepsis screen is negative. Care prior to arrival: None. 09:46 Method Of Arrival: Ambulatory ss 09:46 Acuity: MARY 3 ss 09:50 Initial Sepsis Screen: Does the patient meet any 2 criteria? No. Patient's initial sv sepsis screen is negative. Historical: - Allergies: 09:45 JOE; sv - PMHx: 09:45 Anxiety; Rheumatoid Arthritis; sv - PSHx: 09:45 wrist; sv - Immunization history:: Adult Immunizations up to date. - Social history:: Smoking status: Patient/guardian denies using tobacco, Smoking status: Patient/guardian denies using tobacco, Patient uses street drugs, marijuana. - Ebola Screening: : No symptoms or risks identified at this time. Screenin:44 Abuse screen: Denies threats or abuse. Denies injuries from another. Nutritional sv screening: No deficits noted. Tuberculosis screening: No symptoms or risk factors identified. Fall Risk None identified. Assessment: 10:10 General: Appears in no apparent distress. well groomed, well developed, well nourished, sg Behavior is calm, cooperative, appropriate for age. Pain: Complains of pain in right hand and left hand and mouth Quality of pain is described as aching. Neuro: Level of Consciousness is awake, alert, obeys commands, Oriented to person, place, time, Glass Mould Cleaner are equal bilaterally Moves all extremities. Full function Gait is steady, Speech is normal, Facial symmetry appears normal. Cardiovascular: Capillary refill is brisk in bilateral fingers Patient's skin is warm and dry. Chest pain is denied. Respiratory: Airway is patent Respiratory effort is even, unlabored, Respiratory pattern is regular, symmetrical. GI: Abdomen is round non-distended, Reports nausea, vomiting. : No signs and/or symptoms were reported regarding the genitourinary system. EENT: Reports pain in teeth, and hands, reports newly diagnosed RA within the year. EENT: Oral mucosa is moist. Poor dentition noted. Derm: Skin is pink, warm \\T\\ dry. Musculoskeletal: Circulation, motion, and sensation intact. Range of motion: intact in all extremities. 10:15 Reassessment: pt reports having a "knot under skin" to the right thigh. pt unable to sg find the area of concern at this time, May PILLAIP notified of pt concern, pt unable to locate the "knot", May PILLAIP unable to assess the area, instructed pt to follow up with family PCP for possible referral to Dermatology/specialist once the area is located again or return to the ED for evaluation if the "knot" returns. Vital Signs: 09:46 Resp 16; Weight 72.57 kg; Height 5 ft. 2 in. (157.48 cm); Pain 8/10; ss 09:49 BP 124 / 81; Pulse 88; Temp 98.2(O); Pulse Ox 100% on R/A; em1 10:24 BP 126 / 73; Pulse 72; Resp 17; Pulse Ox 99% ; sv 09:46 Body Mass Index 29.26 (72.57 kg, 157.48 cm) ED Course: 09:42 Patient arrived in ED. ag5 09:44 Kamille Sullivan, YOHAN is Primary Nurse. sv 09:44 May Storm FNP-C is PHCP. snw 09:44 Ramu Choi MD is Attending Physician. snw 09:44 Arm band placed on. sv 09:44 Patient has correct armband on for positive identification. Bed in low position. Call sv light in reach. Door closed. Head of bed elevated. 09:47 Triage completed. ss 09:47 Awaiting ED provider evaluation. sv 10:30 No provider procedures requiring assistance completed. Patient did not have IV access sg during this emergency room visit. Administered Medications: 10:15 Drug: Tetanus-Diphtheria Toxoid Adult 0.5 ml {Vice President Media Relations: [employer]. Exp: sg 01/20/2021. Lot #: [id number]. } Route: IM; Site: right deltoid; 10:18 Drug: Bicillin L-A 2.4 million units Route: IM; Site: right ventrogluteal; sg 10:18 Drug: [place] 5 mg-325 mg 1 tabs Route: PO; sg Outcome: 10:01 Discharge ordered by . sndenis 10:30 Discharged to home ambulatory, with family. sg 10:30 Condition: good 10:30 Discharge instructions given to patient, family, Instructed on discharge instructions, follow up and referral plans. no drinking with medication, no driving heavy equipment, medication usage, safety practices, Demonstrated understanding of instructions, follow-up care, medications, Prescriptions given X 3. 10:37 Patient left the ED. Signatures: Kamille Sullivan RN Jong Gamble RN RN sg Therrien, Shelly, ASSOCIATE PROFESSOR OF SOCIOLOGY-C ASSOCIATE PROFESSOR OF SOCIOLOGY-Riky Olivarez em1 Lara Dan RN RN Campos Del Cid ag5
--- NOTE | 2019-08-04 10:03 | EDPHYS ---
Physician Documentation [facility] Name: Serenity Collins Age: 39 yrs Sex: Female : 1980 Arrival Date: 08/04/2019 Time: 09:42 Bed 7 Private MD: ED Physician Ramu Choi HPI: 08/04 10:35 This 39 yrs old Female presents to ER via Ambulatory with complaints of snw mandibular pain. 10:35 The patient presents with broken tooth/teeth, pain. The problem is located in the lower snw left second molar, lower left first molar, lower right first molar and lower right third molar. Onset: The symptoms/episode began/occurred gradually, and became worse and became persistent. Duration: The symptoms are continuous, and are steadily getting worse. 11:16 Associated signs and symptoms: Pertinent positives: pain. Severity of symptoms: At snw their worst the symptoms were moderate. The patient has experienced similar episodes in the past. The patient has not recently seen a physician. Historical: - Allergies: 09:45 JOE; sv - PMHx: 09:45 Anxiety; Rheumatoid Arthritis; sv - PSHx: 09:45 wrist; sv - Immunization history:: Adult Immunizations up to date. - Social history:: Smoking status: Patient/guardian denies using tobacco, Smoking status: Patient/guardian denies using tobacco, Patient uses street drugs, marijuana. - Ebola Screening: : No symptoms or risks identified at this time. ROS: 10:35 Constitutional: Negative for fever, chills, and weight loss, Eyes: Negative for injury, snw pain, redness, and discharge, Neck: Negative for injury, pain, and swelling, Cardiovascular: Negative for chest pain, palpitations, and edema, Respiratory: Negative for shortness of breath, cough, wheezing, and pleuritic chest pain, Abdomen/GI: Negative for abdominal pain, nausea, vomiting, diarrhea, and constipation, Back: Negative for injury and pain, : Negative for injury, bleeding, discharge, and swelling, MS/Extremity: Negative for injury and deformity, Skin: Negative for injury, rash, and discoloration, Neuro: Negative for headache, weakness, numbness, tingling, and seizure, Psych: Negative for depression, anxiety, suicide ideation, homicidal ideation, and hallucinations. 10:35 ENT: Positive for dental pain. Exam: 10:32 Constitutional: This is a well developed, well nourished patient who is awake, alert, snw and in no acute distress. Head/Face: Normocephalic, atraumatic. Eyes: Pupils equal round and reactive to light, extra-ocular motions intact. Lids and lashes normal. Conjunctiva and sclera are non-icteric and not injected. Cornea within normal limits. Periorbital areas with no swelling, redness, or edema. ENT: Nares patent. No nasal discharge, no septal abnormalities noted. Tympanic membranes are normal and external auditory canals are clear. Oropharynx with no redness, swelling, or masses, exudates, or evidence of obstruction, uvula midline. Mucous membranes moist. Very poor dentition, multiple areas of mandibular tooth loss and caries, broken molar noted to left lower 1st Neck: Trachea midline, no thyromegaly or masses palpated, and no cervical lymphadenopathy. Supple, full range of motion without nuchal rigidity, or vertebral point tenderness. No Meningismus. Chest/axilla: Normal chest wall appearance and motion. Nontender with no deformity. No lesions are appreciated. Cardiovascular: Regular rate and rhythm with a normal S1 and S2. No gallops, murmurs, or rubs. Normal PMI, no JVD. No pulse deficits. Respiratory: Lungs have equal breath sounds bilaterally, clear to auscultation and percussion. No rales, rhonchi or wheezes noted. No increased work of breathing, no retractions or nasal flaring. Abdomen/GI: Soft, non-tender, with normal bowel sounds. No distension or tympany. No guarding or rebound. No evidence of tenderness throughout. Back: No spinal tenderness. No costovertebral tenderness. Full range of motion. Skin: Warm, dry with normal turgor. Normal color with no rashes, no lesions, and no evidence of cellulitis. MS/ Extremity: Pulses equal, no cyanosis. Neurovascular intact. Full, normal range of motion. Neuro: Awake and alert, GCS 15, oriented to person, place, time, and situation. Cranial nerves II-XII grossly intact. Motor strength 5/5 in all extremities. Sensory grossly intact. Cerebellar exam normal. Normal gait. Vital Signs: 09:46 Resp 16; Weight 72.57 kg; Height 5 ft. 2 in. (157.48 cm); Pain 8/10; ss 09:49 BP 124 / 81; Pulse 88; Temp 98.2(O); Pulse Ox 100% on R/A; em1 10:24 BP 126 / 73; Pulse 72; Resp 17; Pulse Ox 99% ; sv 09:46 Body Mass Index 29.26 (72.57 kg, 157.48 cm) ss MDM: 09:44 Patient medically screened. snw 10:37 Data reviewed: vital signs, nurses notes. Data interpreted: Pulse oximetry: on room air snw is 99 %. Interpretation: normal. Counseling: I had a detailed discussion with the patient and/or guardian regarding: the historical points, exam findings, and any diagnostic results supporting the discharge/admit diagnosis, the need for outpatient follow up, to return to the emergency department if symptoms worsen or persist or if there are any questions or concerns that arise at home. Special discussion: Based on the history and exam findings, there is no indication for further emergent testing or inpatient evaluation. I discussed with the patient/guardian the need to see a dentist for further evaluation of the symptoms. 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 Exp: sg 01/20/2021. Lot #: [id number]. } Route: IM; Site: right deltoid; 10:18 Drug: Bicillin L-A 2.4 million units Route: IM; Site: right ventrogluteal; sg 10:18 Drug: [place] 5 mg-325 mg 1 tabs Route: PO; sg Disposition: 11:56 Co-signature as Attending Physician, Ramu Choi MD. rn Disposition: 08/04/19 10:01 Discharged to Home. Impression: Dental caries. - Condition is Stable. - Discharge Instructions: Dental Caries, Adult, Dental Pain, VIS, Tetanus, Diphtheria (Td) - CDC, Diet and Dental Disease, Preventive Dental Care, Adult. - Prescriptions for chlorhexidine gluconate 0.12 % Mucous Membrane mouthwash - place 15 milliliter by MUCOUS MEMBRANE route 2 times per day after brushing teeth, swish in mouth for 30 seconds then spit out; 480 milliliter. Diclofenac Sodium 75 mg Oral Tablet Sustained Release - take 1 tablet by ORAL route 2 times per day; 30 tablet. promethazine 25 mg Oral Tablet - take 1 tablet by ORAL route every 6 hours As needed; 16 tablet. - Work release form, Medication Reconciliation Form, Thank You Letter, Antibiotic Education, Prescription Opioid Use form. - Follow up: Private Physician; When: 2 - 3 days; Reason: Recheck today's complaints, Continuance of care, Re-evaluation by your physician. Follow up: Emergency Department; When: As needed; Reason: Worsening of condition. Signatures: Kamlile Sullivan RN RN sv Gay, Steven, RN RN sg Therrien, Shelly, FRUIT I FARMWORKER-C FRUIT I FARMWORKER-Csnw Ramu Choi MD MD rn Smirch, Shelby, RN RN ss Corrections: (The following items were deleted from the chart) 10:37 10:01 08/04/2019 10:01 Discharged to Home. Impression: Dental caries. Condition is ss Stable. Forms are Medication Reconciliation Form, Thank You Letter, Antibiotic Education, Prescription Opioid Use. Follow up: Private Physician; When: 2 - 3 days; Reason: Recheck today's complaints, Continuance of care, Re-evaluation by your physician. Follow up: Emergency Department; When: As needed; Reason: Worsening of condition. snw
[2019-08-04] MEDS ORDERED: TETANUS & DIPHTHERIA TOX,ADULT 0.5 ML VIAL ONE (10:09)
[2019-08-04] MEDS ORDERED: HYDROCODONE/APAP 5/325 MG TAB ONE (10:09)
[2019-08-04] MEDS ORDERED: PEN G BENZ LA 2.4 MU/4 ML SYRINGE IM ONE (10:10)
[2019-08-04 10:46] VITALS: TEMP 98.2
[2019-08-04 10:48] VITALS: BP 126/73; O2SAT 99
== END 2019-08-04 10:37 | disposition home or self-care (01) ==
LOC: ER 09:39
DX: K02.9 Dental caries, unspecified (principal); Z23 Encounter for immunization; Z91.018 Allergy to other foods
CPT/HCPCS: 90471; 90714; 96372; 99283; J0561

== ENCOUNTER 2019-08-18 10:49 | Emergency (ER) | payer SELFPAY ==
--- OUTSIDE RECORDS SUMMARY | 2019-08-18 11:45 | XMS REPORT ---
:1980 [facility] [address] [place] [address] Care Team Providers Name Role Phone JEANNINE, [...] Department ID 2019-01-07 2019-01-07 Outpatient E JEANNINE, [facility] [id number] 10:23:00 12:27:00 PHYLICIA 2018-12-04 2018-12-[address] [facility] [id number] 10:20:00 15:57:00 KEYUR 2018-11-11 2018-11-[address] [facility] [id number] 04:05:00 06:00:00 MARKELL 2018-10-12 2018-10-12 Outpatient [address] [facility] [id number] 06:24:00 08:08:00 2018-09-30 2018-09-[address] [facility] [id number] 13:45:00 14:12:00 SUZIE 2018-09-04 2018-09-[address] [facility] [id number] 17:32:00 18:30:00 SUZIE 2018-08-19 2018-08-[address] [facility] [id number] 08:43:00 10:15:00 2018-08-08 2018-08-[address] [facility] [id number] 13:34:00 16:43:00 DARÍO Results Test Description Test [...] 05:31:13CT abdomen and pelvis with contrastLocation Code: [id number] HISTORY: [id number]: Lower abdominal painCOMPARISON: NoneTechnique: Helical CT of [...] % 0.0-10.0 XR CHEST 2 VIEW *OW*2018-10-12 07:25:58W23PXPB: XR CHEST 2 VIEW *OW*HISTORY: [id number]: CoughCOMPARISON: 08/08/18INDINGS: The lungs are clear. No [...] % (test code=GMID%) 10.3 % 0.0-10.0 THROAT [id number] 07:45:00 Test Item Value Reference Range Comments [...] 14:39:21PA and lateral chest, 2 viewsLocation code: [id number] HISTORY: Chest painCOMPARISON: NoneCOMMENTS:The lungs are clear and well inflated. The costophrenic angles aresharp. The cardiomediastinal silhouette is unremarkable. The bones are intact.IMPRESSION: No acute abnormality
[2019-08-18] MEDS ORDERED: dexAMETHasone 10 MG/ML VIAL ONE (12:19)
[2019-08-18] MEDS ORDERED: IBUPROFEN 400 MG TAB ONE (12:19)
[2019-08-18] MEDS ORDERED: ONDANSETRON 4 MG (ODT) TAB ONE (12:32)
[2019-08-18] MEDS ORDERED: NA CHLORIDE 0.9% 1,000 ML ONE (13:03)
[2019-08-18] MEDS ORDERED: DIPHENHYDRAMINE 50 MG/ML VIAL ONE (13:03)
[2019-08-18] MEDS ORDERED: METOCLOPRAMIDE 10 MG/2mL INJ ONE (13:03)
--- NOTE | 2019-08-18 14:22 | ER ---
Nurse's Notes [facility] Name: Serenity Collins Age: 39 yrs Sex: Female : 1980 Arrival Date: 08/18/2019 Time: 10:50 Bed 26 Private MD: Diagnosis: Acute pharyngitis;Headache Presentation: 08/18 10:51 Presenting complaint: Patient states: woke up this morning with a little bit of a sore sv throat and now feels like its tight, head pressure, "I feel off and cloudy and my left ear hurts." No drooling noted. Transition of care: patient was not received from another setting of care. Onset of symptoms was August 18, 2019. Risk Assessment: Do you want to hurt yourself or someone else? Patient reports no desire to harm self or others. Care prior to arrival: None. 10:51 Method Of Arrival: Ambulatory sv 10:51 Acuity: MARY 3 sv Triage Assessment: 10:51 General: Appears in no apparent distress. uncomfortable, well developed, Behavior is sv calm, cooperative, appropriate for age. Pain: Complains of pain in throat and head. EENT: Throat is reddened has enlarged tonsils. Neuro: Level of Consciousness is awake, alert, obeys commands, Gait is steady. Respiratory: Airway is patent Respiratory effort is even, unlabored, Respiratory pattern is regular, symmetrical. Historical: - Allergies: 10:52 JOE; sv - PMHx: 10:52 Anxiety; Rheumatoid Arthritis; sv - PSHx: 10:52 wrist; sv - Immunization history:: Flu vaccine is not up to date. - Social history:: Smoking status: Patient/guardian denies using tobacco. - Ebola Screening: : No symptoms or risks identified at this time. Screenin:21 Abuse screen: Denies threats or abuse. Nutritional screening: No deficits noted. sr5 Tuberculosis screening: No symptoms or risk factors identified. Fall Risk None identified. Assessment: 12:21 General: Appears uncomfortable, Behavior is calm, cooperative. Pain: Complains of pain sr5 in forehead, right side of the back of head, right occipital area and neck. Neuro: Level of Consciousness is awake, alert, obeys commands, Oriented to person, place, time, situation, Optometric Technician are equal bilaterally Moves all extremities. Gait is steady, Speech is normal, Facial symmetry appears normal. Cardiovascular: Patient's skin is warm and dry. Respiratory: Respiratory effort is even, unlabored, Respiratory pattern is regular, symmetrical. GI: : No signs and/or symptoms were reported regarding the genitourinary system. EENT: Reports pressure in ears. Derm: No signs and/or symptoms reported regarding the dermatologic system. Musculoskeletal: No signs and/or symptoms reported regarding the musculoskeletal system. 12:33 Reassessment: Following administration of meds, c/o nausea. Provider notified, Zofran sr5 ODT given. 12:53 Reassessment: c/o of head pressure. Pt lying with warm towel wrapped around head sr5 Patient states symptoms have not improved. 14:29 Reassessment: Reports feeling better. Discharge ready. Waiting for remainder of fluids sr5 to infuse. 15:20 Reassessment: Patient and/or family updated on plan of care and expected duration. Pain sr5 level reassessed. Patient is alert, oriented x 3, equal unlabored respirations, skin warm/dry/pink. Patient states feeling better. Patient states symptoms have improved. Vital Signs: 10:53 BP 141 / 74; Pulse 90; Resp 20; Temp 97; Pulse Ox 100% ; Weight 72.57 kg; Height 5 ft. sv 0 in. (152.40 cm); 12:53 Temp 98.4(O); sr5 15:20 BP 134 / 92; Pulse 88; Resp 14; Temp 98.3; Pulse Ox 100% ; Pain 1/10; sr5 10:53 Body Mass Index 31.25 (72.57 kg, 152.40 cm) sv 15:20 headache, states "i feel so much better" sr5 ED Course: 10:50 Patient arrived in ED. as 10:52 Triage completed. sv 10:53 Arm band placed on. sv 11:50 Dimitry Hillman PA is PHCP. [facility] 11:50 Rodney Oliveira MD is Attending Physician. [facility] 12:15 Edson Mitchell, RN is Primary Nurse. sr5 12:21 Patient has correct armband on for positive identification. Bed in low position. Call sr5 light in reach. Pulse ox on. NIBP on. 12:22 Throat Culture Sent. jp3 13:12 Inserted saline lock: 22 gauge in right antecubital area, using aseptic technique. sr5 Blood collected. 15:20 No provider procedures requiring assistance completed. IV discontinued, intact, sr5 bleeding controlled, No redness/swelling at site. Pressure dressing applied. Administered Medications: 12:28 Drug: Motrin 800 mg Route: PO; sr5 13:12 Follow up: Response: No change in condition sr5 12:28 Drug: Decadron 10 mg Route: IM; Site: right deltoid; sr5 13:12 Follow up: Response: Pain is decreased sr5 12:31 Drug: Zofran 4 mg Route: PO; sr5 13:12 Follow up: Response: Marked relief of symptoms sr5 13:11 Drug: Reglan 10 mg Route: IVP; Site: right antecubital; sr5 14:31 Follow up: Response: Marked relief of symptoms sr5 13:11 Drug: diphenhydrAMINE 12.5 mg Route: IVP; Site: right antecubital; sr5 14:30 Follow up: Response: Marked relief of symptoms sr5 13:12 Drug: NS 0.9% 1000 ml Route: IV; Rate: 1 bolus; Site: right antecubital; sr5 15:21 Follow up: IV Status: Completed infusion; IV Intake: 1000ml sr5 Intake: 15:21 IV: 1000ml; Total: 1000ml. sr5 Outcome: 14:19 Discharge ordered by . mary kate 15:16 Patient left the ED. sr5 15:20 Discharged to home ambulatory. sr5 15:20 Condition: good 15:20 Discharge instructions given to patient, Instructed on discharge instructions, follow up and referral plans. medication usage, Demonstrated understanding of instructions, follow-up care, medications, Prescriptions given X 1. Signatures: Kamille Sullivan, RN RN Dimitry Olivares PA PA jmm Martinez, Amelia as Resecker, Sam RN RN sr5 Jesse Dow jp3 Corrections: (The following items were deleted from the chart) 10:53 10:51 Presenting complaint: Patient states: woke up this morning with a little bit of a sv sore throat and now feels like its tight, "I feel off and cloudy and my left ear hurts." sv
--- NOTE | 2019-08-18 14:22 | EDPHYS ---
Physician Documentation [facility] Name: Serenity Collins Age: 39 yrs Sex: Female : 1980 Arrival Date: 08/18/2019 Time: 10:50 Bed 26 Private MD: ED Physician Rodney Oliveira HPI: 08/18 12:00 This 39 yrs old Female presents to ER via Ambulatory with complaints of Sore jmm Throat, Head pressure. 12:00 The patient presents with sore throat. Onset: The symptoms/episode began/occurred jmm gradually, this morning. Modifying factors: The symptoms are alleviated by nothing, the symptoms are aggravated by nothing. Associated signs and symptoms: Pertinent positives: headache. This is a 39 year old female with a history of rheumatoid arthritis that presents to the ED with complaints of sore throat upon awakening this morning. Patient complains of a generalized headache and body aches as well. . Historical: - Allergies: 10:52 JOE; sv - PMHx: 10:52 Anxiety; Rheumatoid Arthritis; sv - PSHx: 10:52 wrist; sv - Immunization history:: Flu vaccine is not up to date. - Social history:: Smoking status: Patient/guardian denies using tobacco. - Ebola Screening: : No symptoms or risks identified at this time. ROS: 12:00 Eyes: Negative for injury, pain, redness, and discharge, Cardiovascular: Negative for jmm chest pain, palpitations, and edema, Respiratory: Negative for shortness of breath, cough, wheezing, and pleuritic chest pain, Abdomen/GI: Negative for abdominal pain, nausea, vomiting, diarrhea, and constipation. 12:00 Skin: Negative for injury, rash, and discoloration. 12:00 Constitutional: Positive for body aches, fever. 12:00 ENT: Positive for ear pain, sore throat. 12:00 Neuro: Positive for headache. 12:00 All other systems are negative. Exam: 12:00 Constitutional: This is a well developed, well nourished patient who is awake, alert, jmm and in no acute distress. Head/Face: atraumatic. Eyes: EOMI, no conjunctival erythema appreciated 12:00 Neck: Trachea midline, Supple Chest/axilla: Normal chest wall appearance and motion. Cardiovascular: Regular rate and rhythm. No edema appreciated Respiratory: Normal respirations, no respiratory distress appreciated 12:00 Abdomen/GI: Non distended, soft Back: Normal ROM Skin: General appearance color normal MS/ Extremity: Moves all extremities, no obvious deformities appreciated, no edema noted to the lower extremities Neuro: Awake and alert, normal gait Psych: Behavior is normal, Mood is normal, Patient is cooperative and pleasant 12:00 ENT: Posterior pharynx: erythema, that is moderate. Vital Signs: 10:53 BP 141 / 74; Pulse 90; Resp 20; Temp 97; Pulse Ox 100% ; Weight 72.57 kg; Height 5 ft. sv 0 in. (152.40 cm); 12:53 Temp 98.4(O); sr5 15:20 BP 134 / 92; Pulse 88; Resp 14; Temp 98.3; Pulse Ox 100% ; Pain 1/10; sr5 10:53 Body Mass Index 31.25 (72.57 kg, 152.40 cm) sv 15:20 headache, states "i feel so much better" sr5 MDM: 11:51 Patient medically screened. [facility] 14:18 Data reviewed: vital signs, nurses notes. Counseling: I had a detailed discussion with mary kate the patient and/or guardian regarding: the historical points, exam findings, and any diagnostic results supporting the discharge/admit diagnosis, lab results, the need for outpatient follow up, to return to the emergency department if symptoms worsen or persist or if there are any questions or concerns that arise at home. ED course: headache relieved in the ED. most likely due to pharyngitis. I do not suspect meningitis or sah at this time. Patient is advised to follow up with pcp and otherwise given strict return precautions. patient understood and agrees with the plan of care. . 08/18 10:55 Order name: Flu; Complete Time: 11:59 sv 08/18 10:55 Order name: Strep; Complete Time: 11:59 sv 08/18 11:39 Order name: Throat Culture EDMA 08/18 12:57 Order name: Saline Lock; Complete Time: 13:12 [facility] Administered Medications: 12:28 Drug: Motrin 800 mg Route: PO; sr5 13:12 Follow up: Response: No change in condition sr5 12:28 Drug: Decadron 10 mg Route: IM; Site: right deltoid; sr5 13:12 Follow up: Response: Pain is decreased sr5 12:31 Drug: Zofran 4 mg Route: PO; sr5 13:12 Follow up: Response: Marked relief of symptoms sr5 13:11 Drug: Reglan 10 mg Route: IVP; Site: right antecubital; sr5 14:31 Follow up: Response: Marked relief of symptoms sr5 13:11 Drug: diphenhydrAMINE 12.5 mg Route: IVP; Site: right antecubital; sr5 14:30 Follow up: Response: Marked relief of symptoms sr5 13:12 Drug: NS 0.9% 1000 ml Route: IV; Rate: 1 bolus; Site: right antecubital; sr5 15:21 Follow up: IV Status: Completed infusion; IV Intake: 1000ml sr5 Disposition: 16:33 Co-signature as Attending Physician, Rodney Oliveira MD I agree with the assessment and kdr plan of care. Disposition: 08/18/19 14:19 Discharged to Home. Impression: Acute pharyngitis, Headache. - Condition is Stable. - Discharge Instructions: General Headache Without Cause, Pharyngitis. - Prescriptions for Amoxicillin 875 mg Oral Tablet - take 1 tablet by ORAL route every 12 hours for 10 days; 20 tablet. - Medication Reconciliation Form, Thank You Letter, Antibiotic Education, Prescription Opioid Use, Work release form form. - Follow up: Private Physician; When: 2 - 3 days; Reason: Recheck today's complaints, Continuance of care, Re-evaluation by your physician. Signatures: Dispatcher [employer] Kamille Argueta RN RN sv Rittger, Kevin, MD MD kdr Mickail, Joel, PA PA jmm Resecker, Sam RN RN sr5 Corrections: (The following items were deleted from the chart) 15:16 14:19 08/18/2019 14:19 Discharged to Home. Impression: Acute pharyngitis; Headache. sr5 Condition is Stable. Forms are Medication Reconciliation Form, Thank You Letter, Antibiotic Education, Prescription Opioid Use. Follow up: Private Physician; When: 2 - 3 days; Reason: Recheck today's complaints, Continuance of care, Re-evaluation by your physician. mary kate
[2019-08-18 15:25] VITALS: BP 141/74; O2SAT 100
[2019-08-18 15:26] VITALS: TEMP 98.4
== END 2019-08-18 15:16 | disposition home or self-care (01) ==
LOC: ER 10:49
DX: R51 Headache (principal); Z91.018 Allergy to other foods
CPT/HCPCS: 87070; 87081; 87804; 96361; 96372; 96374; 96375; 99284; J1100; J1200; J2765; J7030

== ENCOUNTER 2019-08-31 14:33 | Emergency (ER) | payer SELFPAY ==
--- OUTSIDE RECORDS SUMMARY | 2019-08-31 14:36 | XMS REPORT ---
:1980 [facility] [address] [place] [address] Care Team Providers Name Role Phone JEANNINE, [...] Department ID 2019-01-07 2019-01-07 Outpatient E JEANNINE, [facility] [id number] 10:23:00 12:27:00 PHYLICIA 2018-12-04 2018-12-04 Outpatient E CINDI [facility] [id number] 10:20:00 15:57:00 KEYUR 2018-11-11 2018-11-11 Outpatient E GILBERT [facility] [id number] 04:05:00 06:00:00 MARKELL 2018-10-12 2018-10-12 Outpatient E PAULINE REDDY [facility] [id number] 06:24:00 08:08:00 2018-09-30 2018-09-30 Outpatient E MING [facility] [id number] 13:45:00 14:12:00 SUZIE 2018-09-04 2018-09-04 Outpatient E MING [facility] [id number] 17:32:00 18:30:00 SUZIE 2018-08-19 2018-08-19 Outpatient E HANY WILL [facility] [id number] 08:43:00 10:15:00 2018-08-08 2018-08-08 Outpatient E TRISH [facility] [id number] 13:34:00 16:43:00 DARÍO Results Test Description Test [...] Item Value Reference Range Comments SODIUM (test code=MNEG) 141 mmol/L 138-146 POTASSIUM (test code=KI) 3.7 [...] 05:31:13CT abdomen and pelvis with contrastLocation Code: [id number] HISTORY: [id number]: Lower abdominal painCOMPARISON: NoneTechnique: Helical CT of [...] % 0.0-10.0 XR CHEST 2 VIEW *OW*2018-10-12 07:25:24G54EHYO: XR CHEST 2 VIEW *OW*HISTORY: [id number]: CoughCOMPARISON: 08/08/18INDINGS: The lungs are clear. No [...] % (test code=GMID%) 10.3 % 0.0-10.0 THROAT [id number] 07:45:00 Test Item Value Reference Range Comments [...] 14:39:21PA and lateral chest, 2 viewsLocation code: [id number] HISTORY: Chest painCOMPARISON: NoneCOMMENTS:The lungs are clear and well inflated. The costophrenic angles aresharp. The cardiomediastinal silhouette is unremarkable. The bones are intact.IMPRESSION: No acute abnormality
[2019-08-31] MEDS ORDERED: DIPHENHYDRAMINE 50 MG/ML VIAL ONE (16:15)
[2019-08-31] MEDS ORDERED: KETOROLAC 30 MG/ML INJ ONE (16:15)
[2019-08-31] MEDS ORDERED: METOCLOPRAMIDE 10 MG/2mL INJ ONE (16:15)
[2019-08-31] MEDS ORDERED: NA CHLORIDE 0.9% 1,000 ML ONE (16:16)
--- NOTE | 2019-08-31 16:21 | RAD REPORT ---
EXAM DESCRIPTION: CT - Head Brain Wo Cont - 08/31/2019 4:09 pm CLINICAL HISTORY: Headache COMPARISON: 2011 TECHNIQUE: Computed axial tomography of the head was obtained. IV contrast was not requested. All CT scans are performed using dose optimization technique as appropriate and may include automated exposure control or mA/KV adjustment according to patient size. FINDINGS: An intracranial bleed is not seen . The ventricles are normal in caliber. No extra-axial fluid collection is noted. Fluid within the sinuses/ mastoids is not seen. IMPRESSION: No acute intracranial abnormality is seen. If patient's symptoms persist MRI of the bra in would be recommended.
[2019-08-31 16:28] LABS: Basophils % 0.6 % (0-1.3); Lymphocytes % 26.7 % (15.3-44.8); MPV 8.5 fL (7.6-11.3); RBC Red Blood Cell Count 4.44 M/uL (3.86-4.86)
[2019-08-31 16:45] LABS: Potassium 3.8 mmol/L (3.5-5.1)
--- NOTE | 2019-08-31 17:02 | EDPHYS ---
Physician Documentation [facility] Name: Serenity Collins Age: 39 yrs Sex: Female : 1980 Arrival Date: 08/31/2019 Time: 14:36 Bed 28 Private MD: ED Physician Francis Foreman HPI: 08/31 16:25 This 39 yrs old Female presents to ER via Ambulatory with complaints of la1 Headache. 16:25 The patient complains of pain to the global band like distribution. The patient la1 describes the headache as constant, pounding. Onset: The symptoms/episode began/occurred 3 day(s) ago. Associated signs and symptoms: Pertinent positives: nausea, Pertinent negatives: altered mental status, dizziness, malaise, nausea, paresthesias, Photophobia rash, sinus congestion, sinus tenderness, vision changes, vision loss, vomiting, weakness, vertigo. Severity of symptoms: At its worst the pain was moderate, in the emergency department the pain is unchanged. Headache History:. The symptoms are alleviated by Darkened room, massage the symptoms are aggravated by. The patient has experienced a previous episode. The patient has been recently seen at the [facility] Emergency Department, for similar complaints labs were performed, was given a prescription for antibiotics. Historical: - Allergies: 14:43 JOE; sv - PMHx: 14:43 Anxiety; Rheumatoid Arthritis; sv - PSHx: 14:43 wrist; sv - Immunization history:: Adult Immunizations up to date. - Social history:: Smoking status: Patient/guardian denies using tobacco. - Ebola Screening: : Patient denies exposure to infectious person Patient denies travel to an Ebola-affected area in the 21 days before illness onset. ROS: 16:27 Constitutional: Negative for fever, chills, and weight loss, Eyes: Negative for injury, la1 pain, redness, and discharge, ENT: Negative for injury, pain, and discharge, Neck: Negative for injury, pain, and swelling, Cardiovascular: Negative for chest pain, palpitations, and edema, Respiratory: Negative for shortness of breath, cough, wheezing, and pleuritic chest pain, Abdomen/GI: Negative for abdominal pain, nausea, vomiting, diarrhea, and constipation, Back: Negative for injury and pain, : Negative for injury, bleeding, discharge, and swelling, MS/Extremity: Negative for injury and deformity, Skin: Negative for injury, rash, and discoloration. 16:27 Neuro: Positive for headache, Negative for altered mental status, dizziness, gait disturbance, hearing loss, loss of consciousness, numbness, seizure activity, speech changes, syncope, near syncope, tingling, tinnitus, tremor, visual changes, weakness, acute changes. Exam: 16:59 Constitutional: This is a well developed, well nourished patient who is awake, alert, la1 and in no acute distress. Head/Face: Normocephalic, atraumatic. Eyes: Pupils equal round and reactive to light, extra-ocular motions intact. Periorbital areas with no swelling, redness, or edema. ENT: Nares patent. No nasal discharge, no septal abnormalities noted. Tympanic membranes are normal and external auditory canals are clear. Oropharynx with no redness, swelling, or masses, exudates, or evidence of obstruction, uvula midline. Mucous membranes moist. Neck: Trachea midline and no cervical lymphadenopathy. Supple, full range of motion without nuchal rigidity, or vertebral point tenderness. No Meningismus. Chest/axilla: Normal chest wall appearance and motion. Nontender with no deformity. No lesions are appreciated. Cardiovascular: Regular rate and rhythm with a normal S1 and S2. No gallops, murmurs, or rubs. Normal PMI, no JVD. No pulse deficits. Respiratory: Lungs have equal breath sounds bilaterally, clear to auscultation No rales, rhonchi or wheezes noted. No increased work of breathing, no retractions or nasal flaring. Abdomen/GI: Soft, non-tender, with normal bowel sounds. No distension or tympany. No guarding or rebound. No evidence of tenderness throughout. MS/ Extremity: Pulses equal, no cyanosis. Neurovascular intact. Full, normal range of motion. Neuro: Awake and alert, GCS 15, oriented to person, place, time, and situation. Cranial nerves II-XII grossly intact. Motor strength 5/5 in all extremities. Sensory grossly intact. Cerebellar exam normal. Normal gait. Vital Signs: 14:43 BP 125 / 99; Pulse 112; Resp 20; Temp 98.9; Pulse Ox 99% ; Pain 10/10; sv [place] Coma Score: 17:00 Eye Response: spontaneous(4). Verbal Response: oriented(5). Motor Response: obeys la1 commands(6). Total: 15. MDM: 15:35 Patient medically screened. la1 17:00 Differential diagnosis: cerebral abscess, cervical epidural bleed, cluster headache, la1 cerebral vascular accident, intracerebral hemorrhage, meningitis, meningoencephalitis, migraine, subarachnoid bleed, subdural hematoma. Data reviewed: vital signs, nurses notes, lab test result(s), radiologic studies, and as a result, I will discharge patient. Data interpreted: Pulse oximetry: on room air is 99 %. Counseling: I had a detailed discussion with the patient and/or guardian regarding: the historical points, exam findings, and any diagnostic results supporting the discharge/admit diagnosis, lab results, radiology results, the need for outpatient follow up, a family practitioner. Medication response: Toradol markedly relieved the patient's pain. Response to treatment: the patient's symptoms have markedly improved after treatment. Special discussion: Based on the patient's history, exam, and Dx evaluation, there is no indication for emergent intervention or inpatient Tx. It is understood by the patient/guardian that if the Sx's persist or worsen they need to return immediately for re-evaluation. 08/31 15:54 Order name: CBC with Diff; Complete Time: 16:52 la08/31 15:54 Order name: BMP; Complete Time: 16:52 la08/31 15:54 Order name: CT Head Brain wo Cont; Complete Time: 16:25 la1 Administered Medications: 11:20 Drug: NS 0.9% 1000 ml Route: IV; Rate: 1000 ml; Site: left antecubital; ss 17:26 Follow up: IV Status: Completed infusion; IV Intake: 1000ml ss 16:22 Drug: Reglan 10 mg Route: IVP; Site: left antecubital; ss 17:25 Follow up: Response: No adverse reaction; Marked relief of symptoms; Pain is decreased ss 16:23 Drug: Benadryl 25 mg Route: IVP; Site: left antecubital; ss 17:25 Follow up: Response: No adverse reaction; Marked relief of symptoms ss 16:25 Drug: TORadol - Ketorolac 15 mg Route: IVP; Site: left antecubital; ss 17:26 Follow up: Response: No adverse reaction; Marked relief of symptoms; Pain is decreased ss Disposition: 09/01 06:14 Co-signature as Attending Physician, Francis Foreman MD I agree with the assessment and carmen plan of care. Disposition: 08/31/19 17:02 Discharged to Home. Impression: Headache. - Condition is Stable. - Discharge Instructions: General Headache Without Cause, Migraine Headache, Migraine Headache, [id number]. - Medication Reconciliation Form, Thank You Letter form. - Follow up: Private Physician; When: 2 - 3 days; Reason: Recheck today's complaints, Re-evaluation by your physician. Follow up: Emergency Department; When: As needed; Reason: Worsening of condition. - Problem is new. - Symptoms have improved. Signatures: Dispatcher [employer] EDKamille Leal RN RN sv Anderson, Corey, MD MD cha Smirch, Shelby, RN RN ss Attema, Lee, SYSTEM VALIDATION ENGINEER-C SYSTEM VALIDATION ENGINEER-Cla1 Corrections: (The following items were deleted from the chart) 08/31 17:27 17:02 08/31/2019 17:02 Discharged to Home. Impression: Headache. Condition is Stable. ss Forms are Medication Reconciliation Form, Thank You Letter, Antibiotic Education, Prescription Opioid Use. Follow up: Private Physician; When: 2 - 3 days; Reason: Recheck today's complaints, Re-evaluation by your physician. Follow up: Emergency Department; When: As needed; Reason: Worsening of condition. Problem is new. Symptoms have improved. la1
--- NOTE | 2019-08-31 17:02 | ER ---
Nurse's Notes [facility] Name: Serenity Collins Age: 39 yrs Sex: Female : 1980 Arrival Date: 08/31/2019 Time: 14:36 Bed 28 Private MD: Diagnosis: Headache Presentation: 08/31 14:42 Presenting complaint: Patient states: was seen here a couple of days ago for the sv headache and it has never gone away, pain is intermittent and yesterday right arm went limp but is back to normal. Transition of care: patient was not received from another setting of care. Onset of symptoms was August 2019. Care prior to arrival: None. 14:42 Method Of Arrival: Ambulatory sv 14:42 Acuity: MARY 3 sv 17:26 Risk Assessment: Do you want to hurt yourself or someone else? Patient reports no ss desire to harm self or others. Initial Sepsis Screen: Does the patient meet any 2 criteria? No. Patient's initial sepsis screen is negative. Does the patient have a suspected source of infection? No. Patient's initial sepsis screen is negative. Triage Assessment: 14:42 Headache History: The patient has had previous headaches and this one is similar to sv previous episodes. General: Appears in no apparent distress. uncomfortable, Behavior is calm, cooperative, appropriate for age. Neuro: Level of Consciousness is awake, alert, obeys commands, Reports headache in entire. Respiratory: Respiratory effort is even, unlabored. 17:26 Pain: Also complains of. ss Historical: - Allergies: 14:43 JOE; sv - PMHx: 14:43 Anxiety; Rheumatoid Arthritis; sv - PSHx: 14:43 wrist; sv - Immunization history:: Adult Immunizations up to date. - Social history:: Smoking status: Patient/guardian denies using tobacco. - Ebola Screening: : Patient denies exposure to infectious person Patient denies travel to an Ebola-affected area in the 21 days before illness onset. Screenin:00 Abuse screen: Denies threats or abuse. Denies injuries from another. Nutritional ss screening: No deficits noted. Tuberculosis screening: Never had TB. Fall Risk None identified. Assessment: 15:00 General: Appears uncomfortable, Behavior is cooperative, quiet, Pt reports she was seen ss 13 days ago for the similar complaints. Fever began 2-3 days ago. States that medications given in ER helped, but headache came back. Reports chills for 2-3 days, fever for 2-3 days, feeling ill for > 3 days, fatigue for >3 days. Pain: Complains of pain in head in entire Pain currently is 9 out of 10 on a pain scale. Quality of pain is described as aching, throbbing, Is continuous. Neuro: Level of Consciousness is awake, alert, obeys commands, Oriented to person, place, time, situation, [employer] are equal bilaterally Moves all extremities. Gait is steady, Speech is normal, Facial symmetry appears normal, Pupils are PERRLA, Reports headache in entire since x 2 weeks R arm weakness lasting 4 hours "a few days ago". Pt denies any residual symptoms at this time. . Cardiovascular: Capillary refill < 3 seconds is brisk in bilateral fingers. Respiratory: Airway is patent Respiratory effort is even, unlabored, Respiratory pattern is regular, symmetrical. GI: Patient currently denies abdominal pain, diarrhea, nausea, vomiting. : No signs and/or symptoms were reported regarding the genitourinary system. Denies burning with urination, urinary frequency. EENT: Nares are clear Oral mucosa is moist. Throat is clear. Derm: Skin is intact, is healthy with good turgor, Skin is dry, Skin is pink, warm \\T\\ dry. normal. Musculoskeletal: Circulation, motion, and sensation intact. Range of motion: intact in all extremities, Swelling absent. 17:05 Reassessment: discharge pending IV fluids to complete infusing. PT reports feeling much ss better. Pain is now a 3/10. Pt is smiling and thankful for care received. Vital Signs: 14:43 BP 125 / 99; Pulse 112; Resp 20; Temp 98.9; Pulse Ox 99% ; Pain 10/10; sv [place] Coma Score: 17:00 Eye Response: spontaneous(4). Verbal Response: oriented(5). Motor Response: obeys la1 commands(6). Total: 15. ED Course: 14:36 Patient arrived in ED. as 14:43 Triage completed. sv 14:43 Arm band placed on. sv 15:00 Patient has correct armband on for positive identification. Bed in low position. Call ss light in reach. 15:35 Efrem Hong FNP-C is PHCP. la1 15:35 Francis Foreman MD is Attending Physician. la1 16:08 CT Head Brain wo Cont In Process Unspecified. EDMS 16:11 Lara Dan, RN is Primary Nurse. ss 16:19 Initial lab(s) drawn, by me, sent to lab. Inserted saline lock: 22 gauge in left lt1 antecubital area, using aseptic technique. 16:19 BMP Sent. lt1 16:19 CBC with Diff Sent. lt1 17:25 No provider procedures requiring assistance completed. IV discontinued, intact, ss bleeding controlled, No redness/swelling at site. Pressure dressing applied. Administered Medications: 11:20 Drug: NS 0.9% 1000 ml Route: IV; Rate: 1000 ml; Site: left antecubital; ss 17:26 Follow up: IV Status: Completed infusion; IV Intake: 1000ml ss 16:22 Drug: Reglan 10 mg Route: IVP; Site: left antecubital; ss 17:25 Follow up: Response: No adverse reaction; Marked relief of symptoms; Pain is decreased ss 16:23 Drug: Benadryl 25 mg Route: IVP; Site: left antecubital; ss 17:25 Follow up: Response: No adverse reaction; Marked relief of symptoms ss 16:25 Drug: TORadol - Ketorolac 15 mg Route: IVP; Site: left antecubital; ss 17:26 Follow up: Response: No adverse reaction; Marked relief of symptoms; Pain is decreased ss Intake: 17:26 IV: 1000ml; Total: 1000ml. ss Outcome: 17:02 Discharge ordered by . la1 17:25 Discharged to home ambulatory. ss 17:25 Condition: improved 17:25 Discharge instructions given to patient, Instructed on discharge instructions, follow up and referral plans. medication usage, Demonstrated understanding of instructions, follow-up care. 17:27 Patient left the ED. ss Signatures: Dispatcher [employer] EDKamille Leal, Jaylin Shultz RN, Shelby, YOHAN ALMANZAR Efrem Hong, SILO PAINTER-C SILO PAINTER-[facility] Ivy Hodges lt1
[2019-08-31 17:55] VITALS: BP 125/99; TEMP 98.9; O2SAT 99
== END 2019-08-31 17:27 | disposition home or self-care (01) ==
LOC: ER 14:33
DX: R51 Headache (principal); Z91.018 Allergy to other foods
CPT/HCPCS: 36415; 70450; 80048; 85025; 96361; 96374; 96375; 99284; J1200; J2765; J7030

== ENCOUNTER 2019-10-25 16:25 | Emergency (ER) | payer SELFPAY ==
--- OUTSIDE RECORDS SUMMARY | 2019-10-25 16:28 | XMS REPORT ---
:1980 [facility] Address [address] [place] [address] Care Team Providers Name Role Phone JEANNINE, [...] Department ID 2019-01-07 2019-01-07 Outpatient E JEANNINE, [facility] [id number] 10:23:00 12:27:00 PHYLICIA 2018-12-04 2018-12-04 Outpatient E CINDI [facility] [id number] 10:20:00 15:57:00 KEYUR 2018-11-11 2018-11-11 Outpatient E GILBERT [facility] [id number] 04:05:00 06:00:00 MARKELL 2018-10-12 2018-10-12 Outpatient E PAULINE REDDY [facility] [id number] 06:24:00 08:08:00 2018-09-30 2018-09-30 Outpatient E MING [facility] [id number] 13:45:00 14:12:00 SUZIE 2018-09-04 2018-09-04 Outpatient E MING [facility] [id number] 17:32:00 18:30:00 SUZIE 2018-08-19 2018-08-19 Outpatient E HANY WILL [facility] [id number] 08:43:00 10:15:00 2018-08-08 2018-08-08 Outpatient E TRISH [facility] [id number] 13:34:00 16:43:00 DARÍO Results Test Description Test [...] 05:31:13CT abdomen and pelvis with contrastLocation Code: X38OOEENOOE HISTORY: 79880809: Lower abdominal painCOMPARISON: NoneTechnique: Helical CT of [...] % 0.0-10.0 XR CHEST 2 VIEW *OW*2018-10-12 07:25:58T79KFXD: XR CHEST 2 VIEW *OW*HISTORY: [id number]: CoughCOMPARISON: 08/08/18INDINGS: The lungs are clear. No [...] % (test code=GMID%) 10.3 % 0.0-10.0 THROAT [id number] 07:45:00 Test Item Value Reference Range Comments [...] 14:39:21PA and lateral chest, 2 viewsLocation code: [id number] HISTORY: Chest painCOMPARISON: NoneCOMMENTS:The lungs are clear and well inflated. The costophrenic angles aresharp. The cardiomediastinal silhouette is unremarkable. The bones are intact.IMPRESSION: No acute abnormality
--- NOTE | 2019-10-25 18:01 | ER ---
Nurse's Notes [facility] Name: Serenity Collins Age: 39 yrs Sex: Female : 1980 Arrival Date: 10/25/2019 Time: 16:27 Bed Waiting Private MD: Diagnosis: Presentation: 10/24 16:46 Chief complaint: Patient states: nausea, headache and "not feeling well" that began ss just after lunch time. Pt reports she wanted to take some ibuprofen for her RA, but she was out so she looked in a another place in her home and found a white, round pill that she believed was ibuprofen, but she began experiencing her symptoms soon after ingestion. Coronavirus screen: The patient has NOT traveled to a country currently being monitored by the CDC within the last 14 days. Proceed with normal triage procedures. Ebola Screen: Patient denies exposure to infectious person. Patient denies travel to an Ebola-affected area in the 21 days before illness onset. Initial Sepsis Screen: Does the patient meet any 2 criteria? No. Patient's initial sepsis screen is negative. Does the patient have a suspected source of infection? No. Patient's initial sepsis screen is negative. Risk Assessment: Do you want to hurt yourself or someone else? Patient reports no desire to harm self or others. 16:46 Method Of Arrival: Ambulatory 16:46 Acuity: MARY 3 Historical: - Allergies: 16:46 JOE; ss - PMHx: 16:46 Anxiety; Rheumatoid Arthritis; Bipolar disorder; ss - PSHx: 16:46 wrist; ss - Immunization history:: Adult Immunizations up to date. - Social history:: Smoking status: Patient denies any tobacco usage or history of. Vital Signs: 16:46 BP 128 / 96; Pulse 103; Resp 16; Temp 97.6(TE); Pulse Ox 99% on R/A; Weight 72.57 kg; Height 5 ft. 2 in. (157.48 cm); 16:46 Body Mass Index 29.26 (72.57 kg, 157.48 cm) ED Course: 16:27 Patient arrived in ED. ag5 16:46 Arm band placed on right wrist. 16:48 Triage completed. Administered Medications: No medications were administered Outcome: 18:00 Patient left the ED. Signatures: Lara Dan RN RN ss Maria Eugenia Campos ag5
[2019-10-25 18:05] VITALS: BP 128/96; TEMP 97.6; O2SAT 99
== END 2019-10-25 18:00 | disposition left against medical advice (07) ==
LOC: ER 16:25
DX: R11.0 Nausea (principal); Z53.21 Procedure and treatment not carried out due to patient leaving prior to being seen by health care provider
CPT/HCPCS: 99281

== ENCOUNTER 2019-10-26 15:47 | Emergency (ER) | payer SELFPAY ==
--- OUTSIDE RECORDS SUMMARY | 2019-10-26 15:51 | XMS REPORT ---
:1980 [facility] Address [address] [place] [address] Care Team Providers Name Role Phone JEANNINE, [...] Department ID 2019-01-07 2019-01-07 Outpatient E JEANNINE, [facility] [id number] 10:23:00 12:27:00 PHYLICIA 2018-12-04 2018-12-04 Outpatient E CINDI [facility] [id number] 10:20:00 15:57:00 KEYUR 2018-11-11 2018-11-11 Outpatient E GILBERT [facility] [id number] 04:05:00 06:00:00 MARKELL 2018-10-12 2018-10-12 Outpatient E PAULINE REDDY [facility] [id number] 06:24:00 08:08:00 2018-09-30 2018-09-30 Outpatient E MING [facility] [id number] 13:45:00 14:12:00 SUZIE 2018-09-04 2018-09-04 Outpatient E MING [facility] [id number] 17:32:00 18:30:00 SUZIE 2018-08-19 2018-08-19 Outpatient E HANY WILL [facility] [id number] 08:43:00 10:15:00 2018-08-08 2018-08-08 Outpatient E TRISH [facility] [id number] 13:34:00 16:43:00 DARÍO Results Test Description Test [...] 05:31:13CT abdomen and pelvis with contrastLocation Code: [id number] HISTORY: [id number]: Lower abdominal painCOMPARISON: NoneTechnique: Helical CT of [...] % 0.0-10.0 XR CHEST 2 VIEW *OW*2018-10-12 07:25:07V51HVER: XR CHEST 2 VIEW *OW*HISTORY: [id number]: CoughCOMPARISON: 08/08/18INDINGS: The lungs are clear. No [...] % (test code=GMID%) 10.3 % 0.0-10.0 THROAT [id number] 07:45:00 Test Item Value Reference Range Comments [...] 14:39:21PA and lateral chest, 2 viewsLocation code: [id number] HISTORY: Chest painCOMPARISON: NoneCOMMENTS:The lungs are clear and well inflated. The costophrenic angles aresharp. The cardiomediastinal silhouette is unremarkable. The bones are intact.IMPRESSION: No acute abnormality
[2019-10-26] MEDS ORDERED: DIPHENHYDRAMINE 50 MG/ML VIAL ONE (19:01)
[2019-10-26] MEDS ORDERED: METOCLOPRAMIDE 10 MG/2mL INJ ONE (19:01)
[2019-10-26] MEDS ORDERED: ONDANSETRON 4 MG/2 ML VIAL ONE (19:02)
[2019-10-26] MEDS ORDERED: NA CHLORIDE 0.9% 1,000 ML ONE (19:02)
[2019-10-26 19:30] LABS: Absolute Lymphocytes (CBC) 3.5 K/uL (0.7-4.9); Basophils % 0.6 % (0-1.3); Hematocrit 43.5 % (36.0-45.0); Lymphocytes % 27.8 % (15.3-44.8); MPV 9.4 fL (7.6-11.3); RBC Red Blood Cell Count 4.79 M/uL (3.86-4.86)
[2019-10-26 19:38] LABS: BUN Blood Urea Nitrogen 17 mg/dL (7-18); Bicarbonate 28 mmol/L (21-32); Glucose Level 91 mg/dL (74-106); Potassium 3.7 mmol/L (3.5-5.1); Sodium Level 140 mmol/L (136-145)
[2019-10-26] MEDS ORDERED: KETOROLAC 30 MG/ML INJ ONE (19:55)
--- NOTE | 2019-10-26 20:03 | ER ---
Nurse's Notes [facility] Name: Serenity Collins Age: 39 yrs Sex: Female : 1980 Arrival Date: 10/26/2019 Time: 15:48 Bed 24 Private MD: Diagnosis: Headache;Nausea and vomiting Presentation: 10/25 16:12 Chief complaint: Patient states: has been staying with family and was told by cousin dm5 that the cousin switch her pills to "subtex and xanax" pt has been feeling weird since yesterday morning when she took the pills. Pt states she has vomited 4 times today. pt normally takes ibuprofen migraines and arthritis. Coronavirus screen: The patient has NOT traveled to a country currently being monitored by the [facility] within the last 14 days. Proceed with normal triage procedures. The patient has NOT had contact with any known and/or suspected case of coronavirus. Proceed with normal triage procedures. Ebola Screen: Patient negative for fever greater than or equal to 101.5 degrees Fahrenheit, and additional compatible Ebola Virus Disease symptoms Patient denies exposure to infectious person. Patient denies travel to an Ebola-affected area in the 21 days before illness onset. No symptoms or risks identified at this time. Initial Sepsis Screen: Does the patient meet any 2 criteria? No. Patient's initial sepsis screen is negative. Does the patient have a suspected source of infection? No. Patient's initial sepsis screen is negative. Risk Assessment: Do you want to hurt yourself or someone else? Patient reports no desire to harm self or others. 16:12 Method Of Arrival: Ambulatory 5 16:12 Acuity: MARY 3 dm5 Vital Signs: 16:12 BP 144 / 110; Pulse 103; Resp 20; Temp 97.9(TE); Pulse Ox 98% on R/A; Weight 73.03 kg; dm5 Height 5 ft. 2 in. (157.48 cm); 16:12 Body Mass Index 29.45 (73.03 kg, 157.48 cm) 5 ED Course: 15:48 Patient arrived in ED. fj1 16:15 Triage completed. dm5 17:51 Francis Poole PA is PHCP. cp 17:51 Rodney Oliveira MD is Attending Physician. cp 18:47 Jayce, [place], RN is Primary Nurse. ls4 Administered Medications: 19:20 Drug: Zofran (Ondansetron) 4 mg Route: IVP; Site: right antecubital; ls4 19:20 Drug: Reglan 10 mg Route: IVP; Site: right antecubital; ls4 19:20 Drug: Benadryl 25 mg Route: IVP; Site: right antecubital; ls4 19:23 Drug: NS 0.9% 1000 ml Route: IV; Rate: 1 bolus; Site: right antecubital; ls4 19:30 Drug: TORadol - Ketorolac 15 mg Route: IVP; Site: right antecubital; ls4 20:18 Drug: Decadron - Dexamethasone 10 mg Route: IVP; Site: right antecubital; ls4 Outcome: 20:03 Discharge ordered by MD. mosley 20:32 Patient left the ED. ls4 Signatures: Tressa Bañuelos RN RN dm5 Francis Poole PA PA cp Stewart, Lisa, RN RN ls4 Dale Moreno fj
--- NOTE | 2019-10-26 20:04 | EDPHYS ---
Physician Documentation [facility] Name: Serenity Collins Age: 39 yrs Sex: Female : 1980 Arrival Date: 10/26/2019 Time: 15:48 Bed 24 Private MD: ED Physician Rodney Oliveira HPI: 10/25 18:10 This 39 yrs old Female presents to ER via Ambulatory with complaints of cp Vomiting, Headache, DEHYDRATION. 18:10 The patient presents to the emergency department with nausea, that is moderate, cp vomiting, 4 times today. 18:10 Onset: The symptoms/episode began/occurred yesterday. Possible causes: headache times 2 cp days. Associated signs and symptoms: Pertinent negatives: abdominal pain, dysuria, fever, GI bleeding. 18:10 Patient reports taking cousin's medications yesterday to include Xanax accidently and cp has been feeling "weird" since. ROS: 18:20 Constitutional: Negative for body aches, chills, fever, poor PO intake. cp 18:20 Eyes: Positive for photophobia, Negative for discharge, pain, redness, vision loss. cp 18:20 ENT: Negative for drainage from ear(s), ear pain, sore throat, difficulty swallowing, difficulty handling secretions. 18:20 Neck: Negative for pain with movement, pain at rest, stiffness. 18:20 Cardiovascular: Negative for chest pain, palpitations. 18:20 Respiratory: Negative for cough, shortness of breath, wheezing. 18:20 Abdomen/GI: Positive for nausea and vomiting, Negative for abdominal pain, diarrhea, constipation. 18:20 : Negative for urinary symptoms. 18:20 Skin: Negative for rash. 18:20 Neuro: Positive for headache, Negative for altered mental status, dizziness, weakness. 18:20 All other systems are negative. Exam: 18:25 Constitutional: The patient appears in no acute distress, alert, awake, cp non-diaphoretic, non-toxic, well developed, well nourished. 18:25 Head/Face: Normocephalic, atraumatic. cp 18:25 Eyes: Periorbital structures: appear normal, Pupils: equal, round, and reactive to light and accomodation, Extraocular movements: intact throughout, Conjunctiva: normal, no exudate, no injection, Sclera: no appreciated abnormality, Lids and lashes: appear normal, bilaterally. 18:25 ENT: External ear(s): are unremarkable, Ear canal(s): are normal, clear, TM's: bulging, is not appreciated, bilaterally, dullness, bilaterally, erythema, is not appreciated, bilaterally, Nose: is normal, Mouth: is normal, Posterior pharynx: is normal, airway is patent, no erythema, no exudate, Voice: is normal. 18:25 Neck: ROM/movement: is normal, is supple, without pain, no range of motions limitations, no meningismus, no nuchal rigidity, Lymph nodes: no appreciated lymphadenopathy. 18:25 Chest/axilla: Inspection: normal, Palpation: is normal, no crepitus, no tenderness. 18:25 Cardiovascular: Rate: tachycardic, Rhythm: regular. 18:25 Respiratory: the patient does not display signs of respiratory distress, Respirations: normal, no use of accessory muscles, no retractions, labored breathing, is not present, Breath sounds: are clear throughout, no decreased breath sounds. 18:25 Abdomen/GI: Inspection: abdomen appears normal, Palpation: abdomen is soft and non-tender, in all quadrants. 18:25 Neuro: Orientation: to person, place \\T\\ time. Mentation: is normal, Cranial nerves: grossly normal, Cerebellar function: is grossly normal, Motor: is normal, Sensation: is normal, Gait: is steady, at a normal pace, without difficulty. Vital Signs: 16:12 BP 144 / 110; Pulse 103; Resp 20; Temp 97.9(TE); Pulse Ox 98% on R/A; Weight 73.03 kg; dm5 Height 5 ft. 2 in. (157.48 cm); 16:12 Body Mass Index 29.45 (73.03 kg, 157.48 cm) dm5 MDM: 17:56 Patient medically screened. cp 18:30 Differential diagnosis: migraine, sinusitis, tension headache. cp 20:02 Data reviewed: vital signs, nurses notes, lab test result(s), and as a result, I will cp discharge patient. 20:02 Counseling: I had a detailed discussion with the patient and/or guardian regarding: the cp historical points, exam findings, and any diagnostic results supporting the discharge/admit diagnosis, lab results, to return to the emergency department if symptoms worsen or persist or if there are any questions or concerns that arise at home. Response to treatment: the patient's symptoms have markedly improved after treatment, Nausea and pain markedly improved, and as a result, I will discharge patient. 10/25 18:10 Order name: CBC with Diff; Complete Time: 19:42 cp 10/25 19:43 Interpretation: Normal except: WBC 12.5; NEUT A 8.2. 10/25 18:10 Order name: BMP; Complete Time: 19:42 cp 10/25 19:43 Interpretation: Reviewed. 10/25 18:10 Order name: IV; Complete Time: 20:10 cp 10/25 19:21 Order name: PO challenge; Complete Time: 20:08 cp Administered Medications: 19:20 Drug: Zofran (Ondansetron) 4 mg Route: IVP; Site: right antecubital; ls4 19:20 Drug: Reglan 10 mg Route: IVP; Site: right antecubital; ls4 19:20 Drug: Benadryl 25 mg Route: IVP; Site: right antecubital; ls4 19:23 Drug: NS 0.9% 1000 ml Route: IV; Rate: 1 bolus; Site: right antecubital; ls4 19:30 Drug: TORadol - Ketorolac 15 mg Route: IVP; Site: right antecubital; ls4 20:18 Drug: Decadron - Dexamethasone 10 mg Route: IVP; Site: right antecubital; ls4 Disposition: 20:35 Chart complete. 10/26 07:26 Co-signature as Attending Physician, Rodney Oliveira MD I agree with the assessment and kdr plan of care. Disposition: 10/26/19 20:03 Discharged to Home. Impression: Headache, Nausea and vomiting. - Condition is Stable. - Discharge Instructions: General Headache Without Cause, Nausea and Vomiting, Adult. - Prescriptions for Zofran 4 mg Oral Tablet - take 1 tablet by ORAL route every 12 hours As needed; 20 tablet. - Medication Reconciliation Form, Thank You Letter, Antibiotic Education, Prescription Opioid Use form. - Follow up: Private Physician; When: 2 - 3 days; Reason: Recheck today's complaints. - Problem is new. - Symptoms have improved. Signatures: Dispatcher [employer] [facility] Rodney Oliveira MD MD [facility] Francis Poole PA PA cp [place] Eduardo RN RN ls4 Corrections: (The following items were deleted from the chart) 10/25 20:32 20:03 10/26/2019 20:03 Discharged to Home. Impression: Headache; Nausea and vomiting. ls4 Condition is Stable. Forms are Medication Reconciliation Form, Thank You Letter, Antibiotic Education, Prescription Opioid Use. Follow up: Private Physician; When: 2 - 3 days; Reason: Recheck today's complaints. Problem is new. Symptoms have improved. cp
[2019-10-26] MEDS ORDERED: dexAMETHasone 10 MG/ML VIAL ONE (20:17)
[2019-10-26 21:01] VITALS: BP 144/110; TEMP 97.9; O2SAT 98
== END 2019-10-26 20:32 | disposition home or self-care (01) ==
LOC: ER 15:47
DX: R11.2 Nausea with vomiting, unspecified (principal); R51 Headache
CPT/HCPCS: 36415; 80048; 85025; 96374; 96375; 99282; J1100; J1200; J2405; J2765; J7030

== ENCOUNTER 2020-01-26 12:30 | Emergency (ER) | payer SELFPAY ==
--- OUTSIDE RECORDS SUMMARY | 2020-01-26 12:39 | XMS REPORT | Continuity of Care Document ---
:1980 Author Organization [facility] Address [address] [place] [address] Care Team Providers Name Role Phone JEANNINE, Attending Clinician Unavailable DR Curt PUENTE Attending Clinician Unavailable DR Los HUNT Attending Clinician Unavailable MAUREEN, Attending Clinician Unavailable DR Chang LAI Attending Clinician Unavailable NICOLETTE, Attending Clinician Unavailable TRISH, DR Newton Attending Clinician Unavailable JEANNINE, Admitting Clinician Unavailable DR Curt PUENTE Admitting Clinician Unavailable GILBERT, DR Madison Admitting Clinician Unavailable MAUREEN, Admitting Clinician Unavailable DR Chang LAI Admitting Clinician Unavailable NICOLETTE, Admitting Clinician Unavailable TRISH, DR Newton Admitting Clinician Unavailable Problems This patient has no known problems. Allergies, Adverse Reactions, Alerts This patient has no known allergies or adverse reactions. Medications This patient has no known medications. Procedures This patient has no known procedures. Encounters Start End Encounter Admission Attending Care Care Encounter Source Date/Time Date/Time Type Type Clinicians Facility Department ID 2019-01-07 2019-01-07 Outpatient E JEANNINE [facility] [id number] [place] 10:23:00 12:27:00 [facility] 2018-12-04 2018-12-04 Outpatient E CINDI [facility] [id number] [place] 10:20:00 15:57:00 [facility] 2018-11-11 2018-11-11 Outpatient E GILBERT [facility] [id number] [place] 04:05:00 06:00:00 [facility] [place] 2018-10-12 2018-10-12 Outpatient E PAULINE REDDY [facility] [id number] [place] 06:24:00 08:08:00 [facility] [place] 2018-09-30 2018-09-30 Outpatient E MING [facility] [id number] [place] 13:45:00 14:12:00 [facility] 2018-09-04 2018-09-04 Outpatient E MING [facility] [id number] [place] 17:32:00 18:30:00 [facility] 2018-08-19 2018-08-19 Outpatient E HANY WILL [facility] [id number] [place] 08:43:00 10:15:00 [facility] 2018-08-08 2018-08-08 Outpatient E TRISH, [facility] [id number] [place] 13:34:00 16:43:00 DARÍO [facility] Results Test Description Test Time Test Comments Results Result [facility] e Comments U/S GALLBLADDER 2018-12-04 CLINICAL HISTORY: Upper *OW* 15:44:54 abdominal pain.LOCATION: D4.FINDINGS: Real-time grayscale sonographic evaluation [...] 2018-12-04 12:28:00 Test Item Value Reference Range Interpretation Comme nts BNP (test code = OBNP) <15 pg/mL 0-50 CT PE PROTOCOL *OW*2018-12-04 12:10:41CLINICAL HISTORY: Chest pain.LOCATION: D4.FINDINGS: Following the administration of 95 mL Omnipaque 350 intravenouscontrast, multislice axial images are obtained through the chest during thearterial phase per angiography protocol. Reconstructed images are obtained andare used in interpretation. Creatinine is 0.6. The pulmonary arterial vasculature is normal in appearance without evidence ofcentral p ulmonary embolus. The thoracic aorta and visualized abdominal aortaare within normal limits. Multiple subcentimeter mediastinal nodes are notedwith no significant mediastinal adenopathy appreciated. There is afat-containing umbilical hernia measuring 1.9 cm AP x 2.5 cm transverse. Noacute skeletal or s oft tissue abnormalities are identified.The lungs are clear. No infiltrates identified. There are nopleural effusions.IMPRESSION:1. No evidence of central pulmonary embolus. No acute abnormalities.*One or more of the following radiation dose reduction techniques was used:automated exposure control, ad justment of mA and/or KV according to patientsize, and/or utilization of iterative reconstruction technique.TROPONIN I i-STAT OW2018-12-04 11:38:00 Test Item Value Reference Range Interpretation Comments TROPONIN I (test code = A84) 0.000 ng/mL 0.000-0.045 URINE OW2018-12-04 11:24:00 Test Item Value Reference Range Interpretation Comments PREG UR (test code = PGU) Negative NEGATIVE XR CHEST 2 VIEW *OW*2018-12-04 11:17:59CLINICAL HISTORY: Dyspnea, right-sided chest pain.LOCATION: D4.FINDINGS: Comparison is made with previous study dated October 12, 2018. A PAand lateral examination of the chest demonstrates the cardiomediastinalsilhouette to be within normal limits. There are no infiltrates or pleuraleffusions. No skeletal or soft tissue abnormalities.IMPRESSION:1. No acute disease.CHEM8+ i-STAT OW2018-12-04 11:08:00 Test Item Value Reference Range Interpretation Comments SODIUM (test code = MENG) 141 mmol/L 138-146 POTASSIUM (test code = KI) 3.7 mmol/L 3.5-4.9 CHLORIDE (test code = CLI) 105 mmol/L 98-109 CA IONIZED (test code = ICAI) 1.15 mmol/L 1.12-1.32 GLUCOSE (test code = GLUI) 98 mg/dL 75-100 TCO2 (test code = TCO2) 23 mmol/L 24-29 L BUN (test code = BUN1) 15 mg/dL 8-26 CREATININE (test code = CREAI) 0.6 mg/dL 0.6-1.3 ANION GAP (test code = GANG) 17.0 mmol/L HGB (test code = MHB) 14.3 g/dL 12.0-17.0 HCT (test code = MHCT) 42.0 % 38.0-51.0 CBC (INCLUDES AUTOMATED DIFFERENTIAL) *2018-12-04 11:05:00 Test Item Value Reference Range Interpretation Comments WBC (test code = WBC) 8.1 10\S\3/uL 4.5-11.0 RBC (test code = RBC) 4.52 10\S\6/uL 4.30-5.70 HGB (test code = HBG) 13.4 g/dL 12.0-15.5 HCT (test code = HCT) 42.9 % 35.0-44.0 MCV (test code = MCV) 94.9 fL 81.0-99.0 MCH (test code = MCH) 29.6 pg 27.0-31.0 MCHC (test code = MCHC) 31.2 g/dL 32.0-36.0 L RDW (test code = RDW) 13.9 % 11.5-14.5 PLT (test code = PLT) 333 10\S\3/uL 130-400 MPV (test code = OMPV) 8.1 fL 6.2-10.2 NEUTROP # (test code = NE#) 5.2 10\S\3/uL 1.6-8.0 LYMPH # (test code = LY#) 2.1 10\S\3/uL 1.1-3.5 MID # (test code = GMID#) 0.8 10\S\3/uL 0.0-1.1 GRA % (test code = GRA%) 64.2 % 35.0-73.0 LYMPH % (test code = GLY%) 26.0 % 20.0-55.0 MID % (test code = GMID%) 9.8 % 0.0-10.0 PROTHROMBIN TIME i-STAT OW2018-12-04 11:02:00 Test Item Value Reference Range Interpretation Comments PT (test code = 12.2 s 10.0-13.0 PT1) INR (test code = 1.0 INR) INRH (test code = SUGGESTED INRH) THERAPEUTIC RANGE FOR INR: 2.5 - 3.5 For Patients with Prosthetic Valves or Patients with recurrent Thromboembolic Events 2.0 - 3.[address] ABDOMEN AND PELVIS WITH CONTRAST *OW*2018-11-11 05:31:13CT abdomen and pelvis with contrastLocation Code: [id number] HISTORY: [id number]: Lower abdominal pain COMPARISON: NoneTechnique: Helical CT of the abdomen and [...] could be performed asindicated.Mild bladder wall prominence, correlat e with UA to exclude cystitisNo aggressive osseous [...] can be further evaluated withoutpatient colonoscopy.DRUGS OF ABUSE*OW* 2018-11-11 04:58:00 Test Item Value Reference Range Interpretation Comments DRUG SCRN (test code URINE DRUG SCREEN = HDOA) This is an unconfirmed screening result and should not be used for non-medical purposes PHENCYCLID (test Negative NEGATIVE code = GPCP) BENZODIAZE (test Negative NEGATIVE code = GBZO) COCAINE (test code = Negative NEGATIVE GCOC) AMPHETAMIN (test Negative NEGATIVE code = GAMP) THC (test code = Positive NEGATIVE A GTHC) OPIATES (test code = Negative NEGATIVE OSMANI) BARBITURAT (test Negative NEGATIVE code = GBAR) TCA (test code = Negative NEGATIVE GTCA) DOAH (test code = URINE DRUG DOAH) SCREEN CUT OFF VALUES Amphetamines 1000 ng/mL Barbituates 300 ng/mL Benzodiazepines 300 ng/mL Cocaine 300 ng/mL Opiates 300 ng/mL Phencyclidine 25 ng/mL THC 50 ng/mL Tricyclic Antidepressants 1000 ng/mL URINALYSIS W/O MICROSCOPICOW2018-11-11 04:55:00 Test Item Value Reference Range Interpretation Comments COLOR (test code = Yellow YELLOW COLU) CLARITY (test code = Clear CLEAR CLA) GLUCOSE UR (test Negative NEGATIVE code = UA GLUCOSE) BILI UR (test code = Negative NEGATIVE BILE) KETONES UR (test Negative NEGATIVE code = JOSE) SP GRAVITY (test 1.020 1.005-1.030 code = SPGR) PH UR (test code = 7.5 4.5-8.0 PH) PROTEIN UR (test Negative NEGATIVE code = PU) NITRITE UR (test Negative NEGATIVE code = NITRITE) UROBIL UR (test code 0.2 E.U./dL = GUROQ) UROBIL UR (test code UROBILINOGEN = GUROQC) REFERENCE RANGE 0.2 - 1.0 EU/dL BLOOD UR (test code Negative NEGATIVE = UA BLOOD) LEUK ES UR (test 1+ NEGATIVE A code = LEUK) URINE OW2018-11-11 04:54:00 Test Item Value Reference Range Interpretation Comments PREG UR (test code = PGU) Negative NEGATIVE CHEM8+ i-STAT OW2018-11-11 04:47:00 Test Item Value Reference Range Interpretation Comments SODIUM (test code = MENG) 142 mmol/L 138-146 POTASSIUM (test code = KI) 3.5 mmol/L 3.5-4.9 CHLORIDE (test code = CLI) 103 mmol/L 98-109 CA IONIZED (test code = ICAI) 1.11 mmol/L 1.12-1.32 L GLUCOSE (test code = GLUI) 117 mg/dL 75-100 H TCO2 (test code = TCO2) 28 mmol/L 24-29 BUN (test code = BUN1) 13 mg/dL 8-26 CREATININE (test code = CREAI) 0.5 mg/dL 0.6-1.3 L ANION GAP (test code = GANG) 16.0 mmol/L HGB (test code = MHB) 12.9 g/dL 12.0-17.0 HCT (test code = MHCT) 38.0 % 38.0-51.0 LACTIC ACID OW2018-11-11 04:47:00 Test Item Value Reference Range Interpretation Comments LACTATE (test code = TACHO) 1.0 mmol/L 0.9-1.7 CBC (INCLUDES AUTOMATED DIFFERENTIAL) *2018-11-11 04:37:00 Test Item Value Reference Range Interpretation Comments WBC (test code = WBC) 8.7 10\S\3/uL 4.5-11.0 RBC (test code = RBC) 4.35 10\S\6/uL 4.30-5.70 HGB (test code = HBG) 14.3 g/dL 12.0-15.5 HCT (test code = HCT) 39.9 % 35.0-44.0 MCV (test code = MCV) 91.8 fL 81.0-99.0 MCH (test code = MCH) 32.9 pg 27.0-31.0 H MCHC (test code = MCHC) 35.8 g/dL 32.0-36.0 RDW (test code = RDW) 13.5 % 11.5-14.5 PLT (test code = PLT) 294 10\S\3/uL 130-400 MPV (test code = OMPV) 8.6 fL 6.2-10.2 NEUTROP # (test code = NE#) 5.2 10\S\3/uL 1.6-8.0 LYMPH # (test code = LY#) 2.7 10\S\3/uL 1.1-3.5 MID # (test code = GMID#) 0.8 10\S\3/uL 0.0-1.1 GRA % (test code = GRA%) 60.0 % 35.0-73.0 LYMPH % (test code = GLY%) 31.3 % 20.0-55.0 MID % (test code = GMID%) 8.7 % 0.0-10.0 XR CHEST 2 VIEW *OW*2018-10-12 07:25:[id number]: XR CHEST 2 VIEW *OW*HISTORY: [id number]: CoughCOMPARISON: 08/08/18INDINGS: The lungs are clear. No pleural effusion or pneumothorax. The cardiacsilhouette is within normal limits. No acute osseous abnormalities.IMPRESSION:No acute cardiopulmonary disease.CBC (INCLUDES AUTOMATED DIFFERENTIAL) *2018-10-12 06:46:00 Test Item Value Reference Range Interpretation Comments WBC (test code = WBC) 9.0 10\S\3/uL 4.5-11.0 RBC (test code = RBC) 4.03 10\S\6/uL 4.30-5.70 L HGB (test code = HBG) 12.9 g/dL 12.0-15.5 HCT (test code = HCT) 37.6 % 35.0-44.0 MCV (test code = MCV) 93.2 fL 81.0-99.0 MCH (test code = MCH) 32.0 pg 27.0-31.0 H MCHC (test code = MCHC) 34.3 g/dL 32.0-36.0 RDW (test code = RDW) 13.9 % 11.5-14.5 PLT (test code = PLT) 177 10\S\3/uL 130-400 MPV (test code = OMPV) 8.4 fL 6.2-10.2 NEUTROP # (test code = NE#) 3.6 10\S\3/uL 1.6-8.0 LYMPH # (test code = LY#) 4.5 10\S\3/uL 1.1-3.5 H MID # (test code = GMID#) 0.9 10\S\3/uL 0.0-1.1 GRA % (test code = GRA%) 39.9 % 35.0-73.0 LYMPH % (test code = GLY%) 49.8 % 20.0-55.0 MID % (test code = GMID%) 10.3 % 0.0-10.0 H THROAT [id number] 07:45:00 Test Item Value Reference Range Interpretation Comments Culture Observations NO BETA HEMOLYTIC (test code = COB1) STREPTOCOCCUS ISOLATED URINE OW2018-08-08 15:44:00 Test Item Value Reference Range Interpretation Comments PREG UR (test code = PGU) Negative NEGATIVE INFLUENZA A AND B OW2018-08-08 15:31:00 Test Item Value Reference Range Interpretation Comments INFLUENZ A (test code = INFA) NEGATIVE NEGATIVE INFLUENZ B (test code = INFB) NEGATIVE NEGATIVE URINALYSIS W/O MICROSCOPICOW2018-08-08 15:29:00 Test Item Value Reference Range Interpretation Comments COLOR (test code = Yellow YELLOW COLU) CLARITY (test code = Clear CLEAR CLA) GLUCOSE UR (test Negative NEGATIVE code = UA GLUCOSE) BILI UR (test code = Negative NEGATIVE BILE) KETONES UR (test Trace NEGATIVE code = JOSE) SP GRAVITY (test 1.025 1.005-1.030 code = SPGR) PH UR (test code = 5.5 4.5-8.0 PH) PROTEIN UR (test Negative NEGATIVE code = PU) NITRITE UR (test Negative NEGATIVE code = NITRITE) UROBIL UR (test code 0.2 E.U./dL = GUROQ) UROBIL UR (test code UROBILINOGEN = GUROQC) REFERENCE RANGE 0.2 - 1.0 EU/dL BLOOD UR (test code Negative NEGATIVE = UA BLOOD) LEUK ES UR (test Trace NEGATIVE code = LEUK) DIRECT STREP GROUP AOW2018-08-08 15:08:00 Test Item Value Reference Range Interpretation Comments STREP A AG (test code = STREP) NEGATIVE NEGATIVE CBC (INCLUDES AUTOMATED DIFFERENTIAL) *2018-08-08 14:53:00 Test Item Value Reference Range Interpretation Comments WBC (test code = WBC) 8.6 10\S\3/uL 4.5-11.0 RBC (test code = RBC) 4.54 10\S\6/uL 4.30-5.70 HGB (test code = HBG) 14.4 g/dL 12.0-15.5 HCT (test code = HCT) 41.6 % 35.0-44.0 MCV (test code = MCV) 91.6 fL 81.0-99.0 MCH (test code = MCH) 31.7 pg 27.0-31.0 H MCHC (test code = MCHC) 34.6 g/dL 32.0-36.0 RDW (test code = RDW) 13.4 % 11.5-14.5 PLT (test code = PLT) 281 10\S\3/uL 130-400 MPV (test code = OMPV) 8.1 fL 6.2-10.2 NEUTROP # (test code = NE#) 5.5 10\S\3/uL 1.6-8.0 LYMPH # (test code = LY#) 2.4 10\S\3/uL 1.1-3.5 MID # (test code = GMID#) 0.7 10\S\3/uL 0.0-1.1 GRA % (test code = GRA%) 63.8 % 35.0-73.0 LYMPH % (test code = GLY%) 27.7 % 20.0-55.0 MID % (test code = GMID%) 8.5 % 0.0-10.0 CHEM8+ i-STAT OW2018-08-08 14:53:00 Test Item Value Reference Range Interpretation Comments SODIUM (test code = MENG) 140 mmol/L 138-146 POTASSIUM (test code = KI) 3.7 mmol/L 3.5-4.9 CHLORIDE (test code = CLI) 104 mmol/L 98-109 CA IONIZED (test code = ICAI) 1.16 mmol/L 1.12-1.32 GLUCOSE (test code = GLUI) 94 mg/dL 75-100 TCO2 (test code = TCO2) 22 mmol/L 24-29 L BUN (test code = BUN1) 11 mg/dL 8-26 CREATININE (test code = CREAI) 0.5 mg/dL 0.6-1.3 L ANION GAP (test code = GANG) 19.0 mmol/L HGB (test code = MHB) 15.6 g/dL 12.0-17.0 HCT (test code = MHCT) 46.0 % 38.0-51.0 XR CHEST 2 VIEW *OW*2018-08-08 14:39:21PA and lateral chest, 2 viewsLocation code: [id number] HISTORY: Chest painCOMPARISON: NoneCOMMENTS:The lungs are clear and well inflated. The costophrenic angles aresharp. The cardiomediastinal silhouette is unremarkable. The bones are intact.IMPRESSION: No acute abnormality
--- NOTE | 2020-01-26 13:18 | RAD REPORT ---
EXAM DESCRIPTION: US - Abdomen Exam Limited - 01/26/2020 1:11 pm CLINICAL HISTORY: ABD PAIN COMPARISON: Abdomen Exam Limited dated 03/26/2019 FINDINGS: The gallbladder demonstrates no gallstones. No pericholecystic fluid or gallbladder wall t hickening. The common bile duct is normal measuring 4-5 mm. The liver demonstrates no findings of intrahepatic biliary dilatation. IMPRESSION: Unremarkable examination.
[2020-01-26 13:27] LABS: Urine Blood TRACE (NEG); Urine Glucose NEGATIVE (NEG); Urine Protein NEGATIVE (NEG)
[2020-01-26 14:01] LABS: Absolute Lymphocytes (CBC) 1.9 K/uL (0.7-4.9); Basophils % 1.2 % (0-1.3); Hematocrit 41.1 % (36.0-45.0); Lymphocytes % 23.4 % (15.3-44.8); MPV 9.4 fL (7.6-11.3); RBC Red Blood Cell Count 4.58 M/uL (3.86-4.86)
[2020-01-26 14:22] LABS: ALT/SGPT 23 U/L (12-78); AST/SGOT 11 U/L (15-37); Alkaline Phosphatase 86 U/L (45-117); BUN Blood Urea Nitrogen 7 mg/dL (7-18); Bicarbonate 22 mmol/L (21-32); Bilirubin Direct < 0.1 mg/dL (0-0.2); Bilirubin Total 0.3 mg/dL (0.2-1.0); Glucose Level 101 mg/dL (74-106); Lipase 73 U/L (73-393); Potassium 3.9 mmol/L (3.5-5.1); Protein, Total 7.9 g/dL (6.4-8.2); Sodium Level 142 mmol/L (136-145)
--- NOTE | 2020-01-26 14:24 | ER ---
Nurse's Notes [facility] Name: Serenity Collins Age: 39 yrs Sex: Female : 1980 Arrival Date: 01/26/2020 Time: 12:37 Bed 18 Private MD: Diagnosis: Upper abdominal pain, unspecified Presentation: 01/25 12:38 Chief complaint: Intermittent RUQ pain, and N/V/D x 2 weeks. Fever last week, TMAX ll1 101.7, but no fever this week. Hx of cholelithiasis. Coronavirus screen: Proceed with normal triage. Ebola Screen: No symptoms or risks identified at this time. Initial Sepsis Screen: Does the patient meet any 2 criteria? No. Patient's initial sepsis screen is negative. Does the patient have a suspected source of infection? No. Patient's initial sepsis screen is negative. Risk Assessment: Do you want to hurt yourself or someone else? Patient reports no desire to harm self or others. Onset of symptoms was January 13, 2020. 12:38 Method Of Arrival: Ambulatory 1 12:38 Acuity: MARY 3 ll1 DIETITIAN RESEARCH: 12:41 LMP 01/24/2020 ll1 Historical: - Allergies: 12:41 JOE; ll1 - PMHx: 12:41 Anxiety; Bipolar disorder; Rheumatoid Arthritis; ll1 - Immunization history:: Adult Immunizations up to date. - Social history:: Smoking status: Patient denies any tobacco usage or history of. Screenin:45 Abuse screen: Denies threats or abuse. Nutritional screening: No deficits noted. Tuberculosis screening: No symptoms or risk factors identified. Fall Risk None identified. Assessment: 13:15 General: Appears uncomfortable, Behavior is calm, cooperative, appropriate for age. ah Pain: Complains of pain in right upper quadrant. Neuro: Level of Consciousness is awake, alert, Oriented to person, place, time, situation. Cardiovascular: Capillary refill < 3 seconds Patient's skin is warm and dry. Respiratory: Airway is patent Respiratory effort is even, unlabored. GI: Reports diarrhea, nausea, vomiting. Derm: Skin is intact, is healthy with good turgor. 14:15 Reassessment: Patient and/or family updated on plan of care and expected duration. Pain ah level reassessed. Patient is alert, oriented x 3, equal unlabored respirations, skin warm/dry/pink. Vital Signs: 12:38 BP 147 / 91; Pulse 98; Resp 16; Temp 97.8; Pulse Ox 100% on R/A; Weight 72.57 kg; ll1 Height 5 ft. 2 in. (157.48 cm); Pain 8/10; 12:38 Body Mass Index 29.26 (72.57 kg, 157.48 cm) ll1 ED Course: 12:37 Patient arrived in ED. fj1 12:41 Triage completed. ll1 12:41 Kristel Mcintyre FNP-C [facility]. kb 12:41 Rodney Oliveira MD is Attending Physician. kb 12:41 Arm band placed on. ll1 12:45 Chris Abbott, YOHAN is Primary Nurse. ll1 12:57 Cinthya Francisco, RN is Primary Nurse. 13:00 Inserted saline lock: 20 gauge in right antecubital area, using aseptic technique. 13:10 Ultrasound completed. hr 13:11 US Abdomen Limited In Process Unspecified. EDMS 14:30 Patient has correct armband on for positive identification. Bed in low position. Call light in reach. Side rails up X 1. Pulse ox on. NIBP on. 14:30 No provider procedures requiring assistance completed. 14:30 IV discontinued, intact, bleeding controlled, No redness/swelling at site. Pressure ah dressing applied. Administered Medications: No medications were administered Outcome: 14:24 Discharge ordered by . kb 14:30 Discharged to home ambulatory. 14:30 Condition: good 14:30 Discharge instructions given to patient, Instructed on discharge instructions, follow up and referral plans. Demonstrated understanding of instructions, follow-up care, Prescriptions given X 2. 14:47 Patient left the ED. 1 Signatures: Dispatcher [employer] EDUT Kristel Micntyre FNP-C [employer]kb Evelina Mathews Frank 1 Cinthya Francisco, RN RN Chris Abbott, YOHAN RN 1
--- NOTE | 2020-01-26 14:24 | EDPHYS ---
Physician Documentation [facility] Name: Serenity Collins Age: 39 yrs Sex: Female : 1980 Arrival Date: 01/26/2020 Time: 12:37 Bed 18 Private MD: ED Physician Rodney Oliveira HPI: 01/25 14:06 This 39 yrs old Female presents to ER via Ambulatory with complaints of kb POSSIBLE GALLBLADDER. 14:06 The patient presents with abdominal pain in the right upper quadrant. Onset: The kb symptoms/episode began/occurred 2 week(s) ago, and became worse today. The symptoms radiate to right back. Associated signs and symptoms: Pertinent positives: nausea, vomiting, and diarrhea, Pertinent negatives: fever. The symptoms are described as constant. Modifying factors: The symptoms are alleviated by nothing, the symptoms are aggravated by food. Severity of pain: At its worst the pain was moderate in the emergency department the pain is unchanged. The patient has not experienced similar symptoms in the past. The patient has not recently seen a physician. Pt reports she was diagnosed with gallstones last year so she started a low fat diet. States she hadn't had any pain in a while so she got off the diet a couple of weeks ago. Reports RUQ pain since then, worse today. 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 - Social history:: Smoking status: Patient denies any tobacco usage or history of. ROS: 14:05 Constitutional: Negative for fever, chills, and weight loss, Cardiovascular: Negative kb for chest pain, palpitations, and edema, Respiratory: Negative for shortness of breath, cough, wheezing, and pleuritic chest pain, Back: Negative for injury and pain, MS/Extremity: Negative for injury and deformity, Skin: Negative for injury, rash, and discoloration, Neuro: Negative for headache, weakness, numbness, tingling, and seizure. 14:05 Abdomen/GI: Positive for abdominal pain, nausea, vomiting, and diarrhea, Negative for constipation, abdominal cramps, abdominal distension, anorexia. Exam: 14:05 Constitutional: This is a well developed, well nourished patient who is awake, alert, kb and in no acute distress. Head/Face: Normocephalic, atraumatic. Chest/axilla: Normal chest wall appearance and motion. Nontender with no deformity. No lesions are appreciated. Cardiovascular: Regular rate and rhythm with a normal S1 and S2. No gallops, murmurs, or rubs. Normal PMI, no JVD. No pulse deficits. Respiratory: Lungs have equal breath sounds bilaterally, clear to auscultation and percussion. No rales, rhonchi or wheezes noted. No increased work of breathing, no retractions or nasal flaring. Back: No spinal tenderness. No costovertebral tenderness. Full range of motion. Skin: Warm, dry with normal turgor. Normal color with no rashes, no lesions, and no evidence of cellulitis. MS/ Extremity: Pulses equal, no cyanosis. Neurovascular intact. Full, normal range of motion. Neuro: Awake and alert, GCS 15, oriented to person, place, time, and situation. Cranial nerves II-XII grossly intact. Motor strength 5/5 in all extremities. Sensory grossly intact. Cerebellar exam normal. Normal gait. 14:05 Abdomen/GI: Inspection: abdomen appears normal, Bowel sounds: normal, in all quadrants, Palpation: soft, in all quadrants, moderate abdominal tenderness, in the right upper quadrant, Rectal exam: is unremarkable. Vital Signs: 12:38 BP 147 / 91; Pulse 98; Resp 16; Temp 97.8; Pulse Ox 100% on R/A; Weight 72.57 kg; ll1 Height 5 ft. 2 in. (157.48 cm); Pain 8/10; 12:38 Body Mass Index 29.26 (72.57 kg, 157.48 cm) ll1 MDM: 12:42 Patient medically screened. kb 14:05 Data reviewed: vital signs, nurses notes. Data interpreted: Pulse oximetry: on room air kb is 100 %. Interpretation: normal. 14:09 Counseling: I had a detailed discussion with the patient and/or guardian regarding: the kb historical points, exam findings, and any diagnostic results supporting the discharge/admit diagnosis, lab results, radiology results, the need for outpatient follow up, a general surgeon, to return to the emergency department if symptoms worsen or persist or if there are any questions or concerns that arise at home. 01/25 12:53 Order name: Urine Dipstick--Ancillary (enter results); Complete Time: 13:27 em1 01/25 12:53 Order name: Urine --Ancillary (enter results); Complete Time: 13:27 em1 01/25 12:57 Order name: Basic Metabolic Panel; Complete Time: 14:23 kb 01/25 12:57 Order name: CBC with Diff; Complete Time: 14:23 kb 01/25 12:57 Order name: Hepatic Function; Complete Time: 14:23 kb 01/25 12:57 Order name: Lipase; Complete Time: 14:23 kb 01/25 12:41 Order name: US Abdomen Limited; Complete Time: 13:26 kb 01/25 12:57 Order name: IV Saline Lock; Complete Time: 14:31 kb 01/25 12:57 Order name: Labs collected and sent; Complete Time: 14:31 kb Administered Medications: No medications were administered Disposition: 18:47 Co-signature as Attending Physician, Rodney Oliveira MD I agree with the assessment and kdr plan of care. Disposition: 01/26/20 14:24 Discharged to Home. Impression: Upper abdominal pain, unspecified. - Condition is Stable. - Discharge Instructions: Abdominal Pain, Adult, [id number]. - Prescriptions for Bentyl 20 mg Oral Tablet - take 1 tablet by ORAL route every 6 hours As needed; 20 tablet. Zofran 4 mg Oral Tablet - take 1 tablet by ORAL route every 6 hours As needed; 20 tablet. - Medication Reconciliation Form, Thank You Letter, Antibiotic Education, Prescription Opioid Use form. - Follow up: Emergency Department; When: As needed; Reason: Worsening of condition. Follow up: Private Physician; When: 2 - 3 days; Reason: Recheck today's complaints, Continuance of care, Re-evaluation by your physician. Signatures: Dispatcher [employer] EDMS Kristel Mcintyre, CATASTROPHE CLAIMS SUPERVISOR-C CATASTROPHE CLAIMS SUPERVISOR-Rodney Ortiz MD MD kdr Lewis, Lynsay, RN RN ll1 Corrections: (The following items were deleted from the chart) 14:47 14:24 01/26/2020 14:24 Discharged to Home. Impression: Upper abdominal pain, ll1 unspecified. Condition is Stable. Forms are Medication Reconciliation Form, Thank You Letter, Antibiotic Education, Prescription Opioid Use. Follow up: Emergency Department; When: As needed; Reason: Worsening of condition. Follow up: Private Physician; When: 2 - 3 days; Reason: Recheck today's complaints, Continuance of care, Re-evaluation by your physician. kb
[2020-01-26 15:07] VITALS: BP 147/91; TEMP 97.8; O2SAT 100
== END 2020-01-26 14:47 | disposition home or self-care (01) ==
LOC: ER 12:30
DX: R10.11 Right upper quadrant pain (principal); Z91.018 Allergy to other foods
CPT/HCPCS: 36415; 76705; 80048; 80076; 81003; 81025; 83690; 85025; 99284

== ENCOUNTER 2020-01-29 15:28 | Emergency (ER) | payer SELFPAY ==
[2020-01-29] MEDS ORDERED: MORPHINE 2 MG/ML SYR ONE (15:48)
[2020-01-29] MEDS ORDERED: NA CHLORIDE 0.9% 1,000 ML ONE (15:49)
[2020-01-29] MEDS ORDERED: ONDANSETRON 4 MG/2 ML VIAL ONE (15:49)
[2020-01-29] MEDS ORDERED: FAMOTIDINE 20 MG/2 ML VIAL IV ONE (15:49)
--- OUTSIDE RECORDS SUMMARY | 2020-01-29 15:55 | XMS REPORT | Continuity of Care Document ---
:1980 Author Organization [facility] t Address [address] [place] [address] Care Team Providers Name Role Phone JEANNINE, Attending Clinician Unavailable CINDI, DR Elias Attending Clinician Unavailable GILBERT, DR Madison Attending Clinician Unavailable MAUREEN, Attending Clinician Unavailable MING, DR Downing Attending Clinician Unavailable NICOLETTE, Attending Clinician Unavailable TRISH, DR Newton Attending Clinician Unavailable JEANNINE, Admitting Clinician Unavailable CINDI, DR Elias Admitting Clinician Unavailable GILBERT, DR Madison Admitting Clinician Unavailable MAUREEN, Admitting Clinician Unavailable MING, DR Downing Admitting Clinician Unavailable NICOLETTE, Admitting Clinician Unavailable [...] Department ID 2019-01-07 2019-01-07 Outpatient E JEANNINE [facility] [id number] [place] 10:23:00 12:27:00 PHYLICIA [facility] [place] 2018-12-04 2018-12-04 Outpatient E CINDI [facility] [id number] [place] 10:20:00 15:57:00 KEYUR [facility] [place] 2018-11-11 2018-11-11 Outpatient E GILBERT [facility] [id number] [place] 04:05:00 06:00:00 MARKELL [facility] [place] 2018-10-12 2018-10-12 Outpatient E PAULINE REDDY [facility] [id number] [place] 06:24:00 08:08:00 [facility] [place] 2018-09-30 2018-09-30 Outpatient E MING [facility] [id number] [place] 13:45:00 14:12:00 [facility] 2018-09-04 2018-09-04 Outpatient E MING [facility] [id number] [place] 17:32:00 18:30:00 [facility] 2018-08-19 2018-08-19 Outpatient E HANY WILL [facility] [id number] [place] 08:43:00 10:15:00 [facility] 2018-08-08 2018-08-08 Outpatient E TRISH, [facility] [id number] [place] 13:34:00 16:43:00 [facility] Test Description Test Time Test Comments Results Result [facility] e Comments U/S GALLBLADDER 2018-12-04 CLINICAL HISTORY: [...] 05:31:13CT abdomen and pelvis with contrastLocation Code: [id number] HISTORY: [id number]: Lower abdominal pain COMPARISON: NoneTechnique: Helical CT [...] % 0.0-10.0 XR CHEST 2 VIEW *OW*2018-10-12 07:25:59P36GBTP: XR CHEST 2 VIEW *OW*HISTORY: [id number]: CoughCOMPARISON: 08/08/18INDINGS: The lungs are clear. No [...] = GMID%) 10.3 % 0.0-10.0 H THROAT [id number] 07:45:00 Test Item Value Reference Range Interpretation [...] 14:39:21PA and lateral chest, 2 viewsLocation code: [id number] HISTORY: Chest painCOMPARISON: NoneCOMMENTS:The lungs are clear and well inflated. The costophrenic angles aresharp. The cardiomediastinal silhouette is unremarkable. The bones are intact.IMPRESSION: No acute abnormality
[2020-01-29 16:11] LABS: Absolute Lymphocytes (CBC) 2.4 K/uL (0.7-4.9); Basophils % 0.5 % (0-1.3); Hematocrit 41.2 % (36.0-45.0); Lymphocytes % 22.1 % (15.3-44.8); MPV 9.4 fL (7.6-11.3); RBC Red Blood Cell Count 4.58 M/uL (3.86-4.86)
[2020-01-29 16:27] LABS: ALT/SGPT 20 U/L (12-78); AST/SGOT 13 U/L (15-37); Alkaline Phosphatase 86 U/L (45-117); BUN Blood Urea Nitrogen 13 mg/dL (7-18); Bicarbonate 24 mmol/L (21-32); Bilirubin Direct 0.1 mg/dL (0-0.2); Bilirubin Total 0.7 mg/dL (0.2-1.0); Glucose Level 97 mg/dL (74-106); Lipase 67 U/L (73-393); Potassium 3.6 mmol/L (3.5-5.1); Protein, Total 7.8 g/dL (6.4-8.2); Sodium Level 140 mmol/L (136-145)
[2020-01-29] MEDS ORDERED: METOCLOPRAMIDE 10 MG/2mL INJ ONE (17:12)
[2020-01-29] MEDS ORDERED: DIPHENHYDRAMINE 50 MG/ML VIAL ONE (17:12)
[2020-01-29] MEDS ORDERED: KETOROLAC 30 MG/ML INJ ONE (17:13)
--- NOTE | 2020-01-29 17:26 | RAD REPORT ---
EXAM DESCRIPTION: CT - Abdomen Pelvis W Contrast - 01/29/2020 5:14 pm CLINICAL HISTORY: ABD PAIN COMPARISON: CT ABD PELVIS W CONTRAST dated 11/17/2011 TECHNIQUE: Biphasic, helical CT imaging of the abdomen and pelvis was performed following 100 ml non -ionic IV contrast. No oral contrast given. All CT scans are performed using dose optimization technique as appropriate and may include automated exposure control or mA/KV adjustment according to patient size. FINDINGS: No suspicious findings in the lung bases. The liver, spleen, and pancreas show no suspicious findings. Gallbladder and biliary tree are also wi thout suspicious finding. Minimal dilatation is present in the right collecting system without delayed or asymmetric function s een. No obstructing calculus. No nonobstructing calculi seen. No pyelonephritis or acute parenchymal process. No bladder abnormalities. No adrenal abnormalities. No uterine abnormality. Right ovary is unremarkable. Cystic masses in the left adnexum a 7 x 2.5 cm i n collective size could be a tortuous dilated tube or abutting cysts. Hydrosalpinx is favored. No wal l edema or thickening. No dilated bowel loops or bowel wall thickening. Appendix is normal. No free air, free fluid or infla mmatory stranding. No mass or bulky lymphadenopathy. A small fat only umbilical hernia is present. No acute bone findings. L5 pars interarticularis defects are present without subluxation. IMPRESSION: Mild dilatation of the right renal collecting system compared to the left. No delayed or asymmetric function. No pyelonephritis or obstructing calculus. No acute GI finding identifiable. Left adnexae as 7 by 2.5 cm cystic mass that could be hydrosalpinx or abutting ovarian cysts. The left adnexal cystic complex does not show wall thickening, edema or other finding that might leo diomedes pyosalpinx or other active process.
[2020-01-29 18:44] LABS: Urine Blood 1+ (NEG); Urine Glucose NEGATIVE (NEG); Urine Protein NEGATIVE (NEG); Urine pH 6.5 (5.0-7.0)
--- NOTE | 2020-01-29 19:05 | RAD REPORT ---
EXAM DESCRIPTION: US - Transvaginal Study Probe - 01/29/2020 6:41 pm CLINICAL HISTORY: left adnexal mass COMPARISON: Abdomen Pelvis W Contrast dated 01/29/2020 TECHNIQUE: Endovaginal sonography was performed. FINDINGS: Uterus is partially retroflexed. Small uterine fibroids are identified. No dominant myomet rial mass. Endometrial stripe is 6 mm with no focal abnormality. Largest fibroid is 2 cm. Uterus is a pproximately 6.8 x 4.2 x 4.9 cm. Both ovaries are identified. Right ovary and right adnexa show no suspicious findings. No blood or fl uid in the cul de sac. Left ovary contains a small complex cyst and there is a left hydrosalpinx present. Hummel of the dilat ed fallopian tube are not thickened or edematous. No debris within the dilated tube. IMPRESSION: Left-sided hydrosalpinx without additional findings to elevate likelihood of pyosalpinx. Small complex left ovarian cyst. Multiple small fibroids approximately 2 cm in size.
[2020-01-29] MEDS ORDERED: AZITHROMYCIN 250 MG TAB ONE (19:48)
[2020-01-29] MEDS ORDERED: CEFTRIAXONE/SWI 1gm 1 GM/10 ML SYR ONE (19:49)
--- NOTE | 2020-01-29 19:53 | EDPHYS ---
Physician Documentation [facility] Name: Serenity Collins Age: 39 yrs Sex: Female : 1980 Arrival Date: 01/29/2020 Time: 15:31 Bed 5 Private MD: ED Physician Francis Foreman HPI: 01/28 15:40 This 39 yrs old Female presents to ER via EMS with complaints of Abdominal cp Pain. 15:40 The patient presents with abdominal pain in the right upper quadrant. cp 15:40 Onset: The symptoms/episode began/occurred gradually, and became worse today. The cp symptoms radiate to 15:40 Associated signs and symptoms: Pertinent positives: nausea, vaginal discharge, cp Pertinent negatives: chest pain, constipation, diarrhea, dysuria, fever. The patient has been recently seen at the [facility] Emergency Department, last week, for similar complaints labs were performed, an ultrasound was performed. 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 - Social history:: Smoking status: unknown. ROS: 15:45 Constitutional: Negative for body aches, chills, fever, poor PO intake. cp 15:45 Eyes: Negative for injury, pain, redness, and discharge. cp 15:45 ENT: Negative for ear pain, sore throat, difficulty swallowing, difficulty handling secretions. 15:45 Cardiovascular: Negative for chest pain, palpitations. 15:45 Respiratory: Negative for cough, shortness of breath, wheezing. 15:45 Abdomen/GI: Positive for abdominal pain, Negative for vomiting, diarrhea, constipation. 15:45 Back: Positive for radiated pain. 15:45 Skin: Negative for rash. 15:45 Neuro: Negative for altered mental status, headache, weakness. 15:45 All other systems are negative. Exam: 15:55 Constitutional: The patient appears in no acute distress, alert, awake, non-toxic, well cp developed, well nourished, uncomfortable. 15:55 Head/Face: Normocephalic, atraumatic. cp 15:55 Eyes: Periorbital structures: appear normal, Conjunctiva: normal, no exudate, no injection, Sclera: no appreciated abnormality, Lids and lashes: appear normal, bilaterally. 15:55 ENT: External ear(s): are unremarkable, Nose: is normal, Mouth: Lips: moist, Oral mucosa: moist, Posterior pharynx: is normal, airway is patent, no erythema, no exudate. 15:55 Chest/axilla: Inspection: normal, Palpation: is normal, no crepitus, no tenderness. 15:55 Cardiovascular: Rate: normal, Rhythm: regular. 15:55 Respiratory: the patient does not display signs of respiratory distress, Respirations: normal, no use of accessory muscles, no retractions, labored breathing, is not present, Breath sounds: are clear throughout, no decreased breath sounds, no stridor, no wheezing. 15:55 Abdomen/GI: Inspection: abdomen appears normal, Bowel sounds: active, all quadrants, Palpation: soft, in all quadrants, mild abdominal tenderness, in the right lower quadrant and left lower quadrant, moderate abdominal tenderness, in the epigastric area and right upper quadrant, rebound tenderness, is not appreciated, voluntary guarding, is not appreciated, involuntary guarding, is not appreciated. 15:55 Back: pain, that is mild. Vital Signs: 15:32 BP 141 / 107; Pulse 89; Resp 17; Pulse Ox 99% ; jl7 16:00 BP 116 / 70; Pulse 63; Resp 16; Pulse Ox 99% ; jl7 16:45 BP 123 / 91; Pulse 69; Resp 16; Pulse Ox 100% ; jl7 17:34 BP 127 / 85; Pulse 85; Resp 16; Pulse Ox 100% ; jl7 18:28 BP 112 / 83; Pulse 69; Resp 15; Pulse Ox 94% ; jl7 19:36 Temp 97.3(TE); mg2 19:46 BP 121 / 82; Pulse 65; Resp 17; Pulse Ox 100% on R/A; mg2 MDM: 15:32 Patient medically screened. carmen 19:52 Data reviewed: vital signs, nurses notes, old medical records, notes and radiology cp report from previous visit lab test result(s), radiologic studies, CT scan, I have discussed the patient's presentation/case with the attending Emergency Department Physician; and as a result, I will discharge patient. 19:52 Counseling: I had a detailed discussion with the patient and/or guardian regarding: the cp historical points, exam findings, and any diagnostic results supporting the discharge/admit diagnosis, lab results, radiology results, the need for outpatient follow up, a family practitioner, an OB/Gyne specialist, to return to the emergency department if symptoms worsen or persist or if there are any questions or concerns that arise at home. Response to treatment: the patient's symptoms have markedly improved after treatment, and as a result, I will discharge patient. Special discussion: Based on the patient's Hx, exam, and Dx evaluation, there is no indication for emergent surgery or inpatient Tx. It is understood by the patient/guardian that if the Sx's persist or worsen they need to return immediately for re-evaluation. 01/28 15:34 Order name: Basic Metabolic Panel; Complete Time: 16:45 01/28 16:45 Interpretation: Normal except: CL 110; CRE 0.53. 01/28 15:34 Order name: CBC with Diff; Complete Time: 16:45 01/28 16:45 Interpretation: Reviewed. 01/28 15:34 Order name: Hepatic Function; Complete Time: 16:45 01/28 16:45 Interpretation: Reviewed. 01/28 15:34 Order name: Lipase; Complete Time: 16:45 01/28 16:45 Interpretation: Reviewed. 01/28 18:04 Order name: Urine Dipstick--Ancillary (enter results); Complete Time: 19:11 01/28 18:04 Order name: Urine --Ancillary (enter results); Complete Time: 19:11 01/28 16:20 Order name: CT Abd/Pelvis - IV Contrast Only; Complete Time: 17:28 01/28 17:30 Order name: US Transvaginal Study (Probe); Complete Time: 19:11 01/28 18:41 Order name: ESR; Complete Time: 19:52 01/28 19:18 Order name: GC (GONORR/CHLAMYDIA) Probe 01/28 19:18 Order name: Wet Prep; Complete Time: 19:52 01/28 15:34 Order name: IV Saline Lock; Complete Time: 15:52 01/28 15:34 Order name: Labs collected and sent; Complete Time: 15:52 cp 01/28 19:18 Order name: Pelvic Exam Setup; Complete Time: 19:35 cp Administered Medications: 15:45 Drug: Zofran (Ondansetron) 4 mg Route: IVP; Site: right forearm; bp 17:30 Follow up: Response: No adverse reaction jl7 15:45 Drug: Pepcid 20 mg Route: IVP; Site: right forearm; bp 17:31 Follow up: Response: No adverse reaction jl7 15:45 Drug: NS 0.9% 1000 ml Route: IV; Rate: 1000 ml/hr; Site: right forearm; bp 17:00 Follow up: Response: No adverse reaction; IV Status: Completed infusion; IV Intake: jl7 1000ml 15:45 Drug: morphine 2 mg Route: IVP; Site: right forearm; bp 16:15 Follow up: Response: No adverse reaction; Pain is decreased jl7 17:25 Drug: Reglan 10 mg Route: IVP; Site: left antecubital; jl7 17:32 Follow up: Response: No adverse reaction jl7 17:28 Drug: Benadryl 12.5 mg Route: IVP; Site: left antecubital; jl7 17:32 Follow up: Response: No adverse reaction jl7 17:30 Drug: TORadol - Ketorolac 15 mg Route: IVP; Site: left antecubital; jl7 17:32 Follow up: Response: No adverse reaction; Pain is decreased jl7 19:46 Drug: Rocephin 1 grams Route: IV; Rate: calculated rate; Site: right hand; mg2 20:07 Follow up: Response: No adverse reaction; IV Status: Completed infusion mg2 19:46 Drug: Zithromax 1 grams Route: PO; mg2 20:07 Follow up: Response: No adverse reaction; Medication administered at discharge. mg2 Disposition: 01/29 11:29 Co-signature as Attending Physician, Francis Foreman MD I agree with the assessment and carmen plan of care. Disposition: 01/29/20 19:53 Discharged to Home. Impression: Unspecified abdominal pain, Other ovarian cysts - left. - Condition is Stable. - Discharge Instructions: Abdominal Pain, Adult, Ovarian Cyst. - Prescriptions for Zofran 4 mg Oral Tablet - take 1 tablet by ORAL route every 12 hours As needed; 20 tablet. Doxycycline Hyclate 100 mg Oral Tablet - take 1 tablet by ORAL route every 12 hours; 20 tablet. Metronidazole 500 mg Oral Tablet - take 1 tablet by ORAL route every 8 hours; 30 tablet. Tramadol 50 mg Oral Tablet - take 1 tablet by ORAL route every 8 hours as needed; 12 tablet. - Medication Reconciliation Form, Thank You Letter, Antibiotic Education, Prescription Opioid Use form. - Follow up: Private Physician; When: 1 week; Reason: Recheck today's complaints. - Problem is an ongoing problem. - Symptoms have improved. Signatures: Dispatcher [employer] EDTX Francis Foreman MD MD cha Page, Corey, PA PA cp Loraine Lowe, RN RN jl7 Andrés Quintero, RN RN bp Jayme Escobar RN RN mg2 Corrections: (The following items were deleted from the chart) 01/28 15:37 15:36 Immunization history: Adult Immunizations jl7 bp 16:28 16:20 Abdomen Pelvis W Con+CT.RAD.BRZ ordered. [facility] EDTX 16:45 16:45 Normal except: CL 110. cp cp 20:09 19:53 01/29/2020 19:53 Discharged to Home. Impression: Unspecified abdominal pain; mg2 Other ovarian cysts - left. Condition is Stable. Forms are Medication Reconciliation Form, Thank You Letter, Antibiotic Education, Prescription Opioid Use. Follow up: Private Physician; When: 1 week; Reason: Recheck today's complaints. Problem is an ongoing problem. Symptoms have improved. cp
--- NOTE | 2020-01-29 19:53 | ER ---
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 Coronavirus screen: Proceed with normal triage. Patient denies a cough. Patient denies shortness of breath or difficulty breathing. Patient reports a measured and/or subjective temperature greater than 100.4F. Patient denies travel on a cruise ship or to a country the [facility] currently lists as an affected area. Patient denies contact with known and/or suspected case of COVID-19. Ebola Screen: No symptoms or risks identified at this time. Initial Sepsis Screen: Does the patient meet any 2 criteria? No. Patient's initial sepsis screen is negative. Does the patient have a suspected source of infection? No. Patient's initial sepsis screen is negative. Risk Assessment: Do you want to hurt yourself or someone else? Patient reports no desire to harm self or others. Onset of symptoms is unknown. Care prior to arrival: None. 15:32 Method Of Arrival: EMS: [facility] 15:32 Acuity: MARY 3 jl7 Triage Assessment: 15:35 General: Appears in no apparent distress. uncomfortable, Behavior is cooperative, bp appropriate for age, anxious. Pain: Complains of pain in right upper quadrant and left upper quadrant. EENT: No deficits noted. Neuro: No deficits noted. Cardiovascular: No deficits noted. Respiratory: No deficits noted. GI: Reports upper abdominal pain. : No signs and/or symptoms were reported regarding the genitourinary system. Derm: No deficits noted. Musculoskeletal: No deficits noted. 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 - Social history:: Smoking status: unknown. Screenin:35 Abuse screen: Denies threats or abuse. Denies injuries from another. Nutritional bp screening: No deficits noted. Tuberculosis screening: No symptoms or risk factors identified. Fall Risk None identified. Assessment: 15:35 General: SEE TRIAGE NOTE. bp 16:55 Reassessment: Pt requesting a "migraine cocktail" for JUDD, rated 8/10, ERP notified, see jl7 MAR for orders. 17:56 Reassessment: U/S PENDING. VS STABLE ON MONITOR. bp 18:01 Reassessment: US at bedside. jl7 18:28 Reassessment: US complete, awaiting results. jl7 19:47 Reassessment: Patient appears in no apparent distress at this time. Patient and/or mg2 family updated on plan of care and expected duration. Pain level reassessed. Patient is alert, oriented x 3, equal unlabored respirations, skin warm/dry/pink. 19:47 GI: Bowel sounds present X 4 quads. Abd is soft and non tender. mg2 Vital Signs: 15:32 BP 141 / 107; Pulse 89; Resp 17; Pulse Ox 99% ; jl7 16:00 BP 116 / 70; Pulse 63; Resp 16; Pulse Ox 99% ; jl7 16:45 BP 123 / 91; Pulse 69; Resp 16; Pulse Ox 100% ; jl7 17:34 BP 127 / 85; Pulse 85; Resp 16; Pulse Ox 100% ; jl7 18:28 BP 112 / 83; Pulse 69; Resp 15; Pulse Ox 94% ; jl7 19:36 Temp 97.3(TE); mg2 19:46 BP 121 / 82; Pulse 65; Resp 17; Pulse Ox 100% on R/A; mg2 ED Course: 15:31 Patient arrived in ED. jl7 15:31 Francis Foreman MD is Attending Physician. carmen 15:33 Francis Poole PA is PHCP. cp 15:34 Andrés Quintero, RN is Primary Nurse. bp 15:35 Triage completed. jl7 15:35 Patient has correct armband on for positive identification. Bed in low position. Call bp light in reach. Side rails up X2. 15:36 Arm band placed on right wrist. jl7 15:51 Initial lab(s) drawn, by me, sent to lab. Inserted saline lock: 22 gauge in right hand, [facility] using aseptic technique. Blood collected. 15:52 Basic Metabolic Panel Sent. [facility] 15:52 CBC with Diff Sent. [facility] 15:52 Hepatic Function Sent. [facility] 15:52 Lipase Sent. [facility] 15:53 Warm blanket given. Pulse ox on. NIBP on. 5 16:55 Inserted saline lock: 20 gauge in left antecubital area, using aseptic technique. jl7 ,using aseptic technique. CT notified. 17:15 CT Abd/Pelvis - IV Contrast Only In Process Unspecified. EDMS 17:37 Primary Nurse role handed off by Andrés Quintero RN jl7 17:37 Loraine Lowe, YOHAN is Primary Nurse. jl7 18:32 Ultrasound completed. Notified ED Physician page. sg3 18:42 US Transvaginal Study (Probe) In Process Unspecified. EDMS 19:36 Assist provider with pelvic exam: Set up pelvic tray. Performed by Francis SIERRA mg2 Specimens sent to lab. Patient tolerated. 20:07 IV discontinued, intact, bleeding controlled, No redness/swelling at site. Pressure mg2 dressing applied. Administered Medications: 15:45 Drug: Zofran (Ondansetron) 4 mg Route: IVP; Site: right forearm; bp 17:30 Follow up: Response: No adverse reaction jl 15:45 Drug: Pepcid 20 mg Route: IVP; Site: right forearm; bp 17:31 Follow up: Response: No adverse reaction jl 15:45 Drug: NS 0.9% 1000 ml Route: IV; Rate: 1000 ml/hr; Site: right forearm; bp 17:00 Follow up: Response: No adverse reaction; IV Status: Completed infusion; IV Intake: [facility] 1000ml 15:45 Drug: morphine 2 mg Route: IVP; Site: right forearm; bp 16:15 Follow up: Response: No adverse reaction; Pain is decreased jl7 17:25 Drug: Reglan 10 mg Route: IVP; Site: left antecubital; jl7 17:32 Follow up: Response: No adverse reaction jl 17:28 Drug: Benadryl 12.5 mg Route: IVP; Site: left antecubital; jl7 17:32 Follow up: Response: No adverse reaction jl7 17:30 Drug: TORadol - Ketorolac 15 mg Route: IVP; Site: left antecubital; jl7 17:32 Follow up: Response: No adverse reaction; Pain is decreased jl7 19:46 Drug: Rocephin 1 grams Route: IV; Rate: calculated rate; Site: right hand; mg2 20:07 Follow up: Response: No adverse reaction; IV Status: Completed infusion mg2 19:46 Drug: Zithromax 1 grams Route: PO; mg2 20:07 Follow up: Response: No adverse reaction; Medication administered at discharge. mg2 Intake: 17:00 IV: 1000ml; Total: 1000ml. jl7 Outcome: 19:53 Discharge ordered by . cp 20:09 Discharged to home ambulatory. mg2 20:09 Condition: stable 20:09 Discharge instructions given to patient, Instructed on discharge instructions, follow up and referral plans. medication usage, Demonstrated understanding of instructions, follow-up care, medications, Prescriptions given X 4. 20:09 Patient left the ED. mg2 Signatures: Dispatcher [employer] EDMS rFancis Foreman MD MD cha Page, Corey, PA PA Elsa Elizabeth 5 Loraine Lowe RN RN jl7 Andrés Quintero RN RN bp Sandy Burch 3 Jayme Escobar, YOHAN RN mg2 Corrections: (The following items were deleted from the chart) 15:37 15:36 Immunization history: Adult Immunizations jl7 bp
[2020-01-29 20:21] VITALS: TEMP 97.3
[2020-01-29 20:22] VITALS: BP 121/82; O2SAT 100
[2020-02-01 20:05] LABS: C.trachomatis RNA,TMA Not Detected (Not Detected)
== END 2020-01-29 20:09 | disposition home or self-care (01) ==
LOC: ER 15:28
DX: N83.292 Other ovarian cyst, left side (principal); Z91.018 Allergy to other foods
CPT/HCPCS: 36415; 74177; 76830; 80048; 80076; 81003; 81025; 83690; 85025; 85652; 87210; 87490; 87590; 99284; J0696; J1200; J2270; J2405; J2765; J7030; Q9967

== ENCOUNTER 2020-08-22 09:26 | Emergency (ER) | payer SELFPAY ==
--- OUTSIDE RECORDS SUMMARY | 2020-08-22 09:49 | XMS REPORT | Continuity of Care Document ---
:1980 Author Organization [facility] t Address [address] [place] [address] Care Team Providers Name Role Phone Justo MISSYWillow Attending Clinician JEANNINE, Attending Clinician Unavailable DR Curt PUENTE Attending Clinician Unavailable GILBERT, DR Madison Attending Clinician Unavailable MAUREEN, Attending Clinician Unavailable DR Chang LAI Attending Clinician Unavailable NICOLETTE, Attending Clinician Unavailable TRISH, DR Newton Attending Clinician Unavailable JEANNINE, Admitting Clinician Unavailable DR Curt PUENTE Admitting Clinician Unavailable DR Los HUNT Admitting Clinician Unavailable MAUREEN, Admitting Clinician Unavailable [...] Date/Time Type Type Clinicians Facility Department ID 2020-02-22 2020-02-22 Emergency Curt Kemp [facility] [[email or web address]] [id number] 12:29:09 15:00:00 [place] [id number] [place] [id number] [place] [id number] 2019-01-07 2019-01-07 Outpatient E MAULIK PAEZ [facility] [id number] [place] 10:23:00 12:27:00 [facility] 2018-12-04 2018-12-04 Outpatient E MAULIK PUENTE [facility] [id number] [place] 10:20:00 15:57:[address] [facility] 2018-11-11 2018-11-11 Outpatient E GILBERT [facility] [id number] [place] 04:05:00 06:00:00 [facility] 2018-10-12 2018-10-12 Outpatient E PAULINE REDDY [facility] [id number] [place] 06:24:00 08:08:[address] [facility] 2018-09-30 2018-09-30 Outpatient E MING, [facility] [id number] [place] 13:45:00 14:12:00 [facility] 2018-09-04 2018-09-04 Outpatient E MING, [facility] [id number] [place] 17:32:00 18:30:00 [facility] 2018-08-19 2018-08-19 Outpatient E HANY WILL [facility] [id number] [place] 08:43:00 10:15:[address] [facility] 2018-08-08 2018-08-08 Outpatient E TRISH, [facility] [id number] [place] 13:34:00 16:43:00 [facility] Results Test Description Test Time Test Comments Results Result [facility] e Comments U/S GALLBLADDER 2018-12-04 CLINICAL [...] 05:31:13CT abdomen and pelvis with contrastLocation Code: [id number] HISTORY: [id number]: Lower abdominal pain COMPARISON: NoneTechnique: Helical CT [...] % 0.0-10.0 XR CHEST 2 VIEW *OW*2018-10-12 07:25:78S67OBVD: XR CHEST 2 VIEW *OW*HISTORY: [id number]: CoughCOMPARISON: 08/08/18INDINGS: The lungs are clear. No [...] = GMID%) 10.3 % 0.0-10.0 H THROAT [id number] 07:45:00 Test Item Value Reference Range Interpretation [...] 14:39:21PA and lateral chest, 2 viewsLocation code: [id number] HISTORY: Chest painCOMPARISON: NoneCOMMENTS:The lungs are clear and well inflated. The costophrenic angles aresharp. The cardiomediastinal silhouette is unremarkable. The bones are intact.IMPRESSION: No acute abnormality
[2020-08-22] MEDS ORDERED: METOCLOPRAMIDE 10 MG/2mL INJ ONE (11:24)
[2020-08-22] MEDS ORDERED: KETOROLAC 30 MG/ML INJ ONE (11:24)
[2020-08-22] MEDS ORDERED: DIPHENHYDRAMINE 50 MG/ML VIAL ONE (11:24)
[2020-08-22] MEDS ORDERED: dexAMETHasone 10 MG/ML VIAL ONE (11:24)
[2020-08-22] MEDS ORDERED: NA CHLORIDE 0.9% 1,000 ML ONE (11:24)
--- NOTE | 2020-08-22 12:27 | ER ---
Nurse's Notes [facility] Name: Serenity Collins Age: 40 yrs Sex: Female : 1980 Arrival Date: 08/22/2020 Time: 09:28 Bed 18 Private MD: Diagnosis: Migraine Presentation: 08/22 09:37 Chief complaint: Patient states: pt states that she has had a headache for 2 days. Took dm5 last of medication excedrin and motrin yesterday. Pt states she hasn't been on regular medication in about a year due to COVID. pt states she also has anxiety and bronchitis. Coronavirus screen: Client denies travel out of the [place] in the last 14 days. headache, Client presents with at least one sign or symptom that may indicate coronavirus-19. Standard/surgical mask placed on the client. Ebola Screen: Patient negative for fever greater than or equal to 101.5 degrees Fahrenheit, and additional compatible Ebola Virus Disease symptoms Patient denies exposure to infectious person. Patient denies travel to an Ebola-affected area in the 21 days before illness onset. No symptoms or risks identified at this time. Initial Sepsis Screen: Does the patient meet any 2 criteria? No. Patient's initial sepsis screen is negative. Does the patient have a suspected source of infection? No. Patient's initial sepsis screen is negative. Risk Assessment: Do you want to hurt yourself or someone else? Patient reports no desire to harm self or others. Onset of symptoms was August 21, 2020. 09:37 Method Of Arrival: Ambulatory dm5 09:37 Acuity: MARY 3 dm5 Historical: - Allergies: 09:39 JOE; dm5 - PMHx: 09:39 Anxiety; Bipolar disorder; ocd; PTSD; Rheumatoid Arthritis; dm5 - PSHx: 09:39 None; dm5 - Immunization history:: Adult Immunizations up to date. - Social history:: Smoking status: Patient denies any tobacco usage or history of. Screenin:14 Abuse screen: Denies threats or abuse. Nutritional screening: No deficits noted. ll1 Tuberculosis screening: No symptoms or risk factors identified. 12:14 Fall Risk None identified. IV access (20 points). Total Fish Fall Scale indicates No ll1 Risk (0-24 pts). Assessment: 11:00 General: Appears uncomfortable, Behavior is calm, cooperative, appropriate for age. ll1 Pain: Complains of pain in head Pain currently is 8 out of 10 on a pain scale. Quality of pain is described as aching, throbbing, Pain began 1 day ago. Neuro: Level of Consciousness is awake, alert, obeys commands, Oriented to person, place, time, situation, Appropriate for age Bath Tester are equal bilaterally Moves all extremities. Full function Gait is steady, Speech is normal, Facial symmetry appears normal, Reports headache weakness. Cardiovascular: No deficits noted. Respiratory: No deficits noted. GI: Abdomen is flat, Bowel sounds present X 4 quads. Abd is soft and non tender X 4 quads. Reports nausea. 12:09 General: Appears in no apparent distress. Behavior is calm, cooperative. Pain: vg1 Complains of pain in Head Pain currently is 3 out of 10 on a pain scale. 12:09 Neuro: Level of Consciousness is awake, alert, obeys commands, Oriented to person, vg1 place, time, situation, Reports headache. Cardiovascular: Patient's skin is warm and dry. Respiratory: Airway is patent Respiratory effort is even, unlabored, Respiratory pattern is regular, symmetrical. GI: Reports Nausea has subsided. : No signs and/or symptoms were reported regarding the genitourinary system. : No signs and/or symptoms were reported regarding the genitourinary system. Derm: Skin is pink, warm \T\ dry. Musculoskeletal: Circulation, motion, and sensation intact. Vital Signs: 09:37 BP 119 / 71; Pulse 93; Resp 20; Temp 97.6; Pulse Ox 98% on R/A; Weight 53.98 kg; Height dm5 5 ft. 2 in. (157.48 cm); Pain 8/10; 12:00 BP 103 / 68; Pulse 62; Resp 18; Pulse Ox 98% on R/A; vg1 09:37 Body Mass Index 21.77 (53.98 kg, 157.48 cm) dm5 ED Course: 09:28 Patient arrived in ED. ds1 09:39 Triage completed. dm5 10:13 Chris Abbott, RN is Primary Nurse. ll1 10:14 Arm band placed on Patient placed in an exam room, on a stretcher. ll1 10:14 Patient has correct armband on for positive identification. Bed in low position. Call ll1 light in reach. Side rails up X 1. Pulse ox on. NIBP on. 10:30 Inserted saline lock: 22 gauge in right antecubital area, using aseptic technique. ll1 10:44 Joseph Almaraz PA is PHCP. jr8 10:45 Rodney Oliveira MD is Attending Physician. jr8 12:05 Primary Nurse role handed off by Chris Abbott RN vg1 12:05 Isabell Zarco, YOHAN is Primary Nurse. vg1 Administered Medications: 11:19 Drug: NS 0.9% 1000 ml Route: IV; Rate: 1000 ml; Site: right antecubital; ll1 12:40 Follow up: IV Status: Completed infusion; IV Intake: 1000ml vg1 11:20 Drug: Reglan 10 mg Route: IVP; Site: right antecubital; ll1 12:41 Follow up: Response: No adverse reaction vg1 11:21 Drug: Benadryl 25 mg Route: IVP; Site: right antecubital; ll1 12:41 Follow up: Response: No adverse reaction vg1 11:22 Drug: Decadron - Dexamethasone 10 mg Route: IVP; Site: right antecubital; ll1 12:41 Follow up: Response: No adverse reaction vg1 11:24 Drug: TORadol - Ketorolac 15 mg Route: IVP; Site: right antecubital; ll1 12:40 Follow up: Response: Pain is decreased vg1 Intake: 12:40 IV: 1000ml; Total: 1000ml. vg1 Outcome: 12:26 Discharge ordered by . jr8 12:46 Patient left the ED. vg1 Signatures: Tressa Bañuelos, RN RN Alexa Rojo ds1 Joseph Almaraz PA PA jr8 Isabell Zarco RN RN vg1 Chris Abbott, YOHAN RN ll1 Corrections: (The following items were deleted from the chart) 12:13 10:10 Inserted saline lock: 22 gauge in right antecubital area, using aseptic ll1 technique. ll1
--- NOTE | 2020-08-22 12:27 | EDPHYS ---
Physician Documentation [facility] Name: Serenity Collins Age: 40 yrs Sex: Female : 1980 Arrival Date: 08/22/2020 Time: 09:28 Bed 18 Private MD: ED Physician Rodney Oliveira HPI: 08/22 12:23 This 40 yrs old Female presents to ER via Ambulatory with complaints of jr8 Migraine, Nausea. 12:23 The patient complains of pain to the diffuse. The patient describes the headache as jr8 aching, throbbing. Onset: The symptoms/episode began/occurred acutely, yesterday. Associated signs and symptoms: Pertinent positives: nausea. Severity of symptoms: At its worst the pain was moderate, in the emergency department the pain is unchanged. Headache History: Denies prior headaches. The symptoms are alleviated by nothing. the symptoms are aggravated by movement. It is unknown whether or not the patient has had similar symptoms in the past. The patient has not recently seen a physician. Patient with history of RA. Stated that she has been off her meds since COVID. Stated that her pain is worsening and now getting headaches with nausea from it . Historical: - Allergies: 09:39 JOE; dm5 - PMHx: 09:39 Anxiety; Bipolar disorder; ocd; PTSD; Rheumatoid Arthritis; dm5 - PSHx: 09:39 None; dm5 - Immunization history:: Adult Immunizations up to date. - Social history:: Smoking status: Patient denies any tobacco usage or history of. ROS: 12:23 Eyes: Negative for injury, pain, redness, and discharge, ENT: Negative for injury, jr8 pain, and discharge, Neck: Negative for injury, pain, and swelling, Cardiovascular: Negative for chest pain, palpitations, and edema, Respiratory: Negative for shortness of breath, cough, wheezing, and pleuritic chest pain, Back: Negative for injury and pain, MS/Extremity: Negative for injury and deformity, Skin: Negative for injury, rash, and discoloration. 12:23 Abdomen/GI: Positive for nausea, vomiting, Negative for abdominal pain. 12:23 Neuro: Positive for headache. Exam: 12:23 Eyes: Pupils equal round and reactive to light, extra-ocular motions intact. Lids and jr8 lashes normal. Conjunctiva and sclera are non-icteric and not injected. Cornea within normal limits. Periorbital areas with no swelling, redness, or edema. ENT: Nares patent. No nasal discharge, no septal abnormalities noted. Tympanic membranes are normal and external auditory canals are clear. Oropharynx with no redness, swelling, or masses, exudates, or evidence of obstruction, uvula midline. Mucous membranes moist. Neck: Trachea midline, no thyromegaly or masses palpated, and no cervical lymphadenopathy. Supple, full range of motion without nuchal rigidity, or vertebral point tenderness. No Meningismus. Cardiovascular: Regular rate and rhythm with a normal S1 and S2. No gallops, murmurs, or rubs. Normal PMI, no JVD. No pulse deficits. Respiratory: Lungs have equal breath sounds bilaterally, clear to auscultation and percussion. No rales, rhonchi or wheezes noted. No increased work of breathing, no retractions or nasal flaring. Abdomen/GI: Soft, non-tender, with normal bowel sounds. No distension or tympany. No guarding or rebound. No evidence of tenderness throughout. Back: No spinal tenderness. No costovertebral tenderness. Full range of motion. Skin: Warm, dry with normal turgor. Normal color with no rashes, no lesions, and no evidence of cellulitis. MS/ Extremity: Pulses equal, no cyanosis. Neurovascular intact. Full, normal range of motion. Neuro: Awake and alert, GCS 15, oriented to person, place, time, and situation. Cranial nerves II-XII grossly intact. Motor strength 5/5 in all extremities. Sensory grossly intact. Cerebellar exam normal. Normal gait. Vital Signs: 09:37 BP 119 / 71; Pulse 93; Resp 20; Temp 97.6; Pulse Ox 98% on R/A; Weight 53.98 kg; Height dm5 5 ft. 2 in. (157.48 cm); Pain 8/10; 12:00 BP 103 / 68; Pulse 62; Resp 18; Pulse Ox 98% on R/A; vg1 09:37 Body Mass Index 21.77 (53.98 kg, 157.48 cm) dm5 MDM: 10:45 Patient medically screened. jr8 12:23 Data reviewed: vital signs, nurses notes. Data interpreted: Pulse oximetry: on room air jr8 is 98 %. Interpretation: normal. Counseling: I had a detailed discussion with the patient and/or guardian regarding: the historical points, exam findings, and any diagnostic results supporting the discharge/admit diagnosis, the need for outpatient follow up, a family practitioner, to return to the emergency department if symptoms worsen or persist or if there are any questions or concerns that arise at home. Response to treatment: the patient's symptoms have markedly improved after treatment. 08/22 10:56 Order name: IV; Complete Time: 11:03 jr8 Administered Medications: 11:19 Drug: NS 0.9% 1000 ml Route: IV; Rate: 1000 ml; Site: right antecubital; ll1 12:40 Follow up: IV Status: Completed infusion; IV Intake: 1000ml vg1 11:20 Drug: Reglan 10 mg Route: IVP; Site: right antecubital; ll1 12:41 Follow up: Response: No adverse reaction vg1 11:21 Drug: Benadryl 25 mg Route: IVP; Site: right antecubital; ll1 12:41 Follow up: Response: No adverse reaction vg1 11:22 Drug: Decadron - Dexamethasone 10 mg Route: IVP; Site: right antecubital; ll1 12:41 Follow up: Response: No adverse reaction vg1 11:24 Drug: TORadol - Ketorolac 15 mg Route: IVP; Site: right antecubital; ll1 12:40 Follow up: Response: Pain is decreased vg1 Disposition: 17:19 Co-signature as Attending Physician, Rodney Oliveira MD I agree with the assessment and kdr plan of care. Disposition: 08/22/20 12:26 Discharged to Home. Impression: Migraine. - Condition is Stable. - Discharge Instructions: Migraine Headache. - Prescriptions for Ibuprofen 800 mg Oral Tablet - take 1 tablet by ORAL route every 12 hours As needed take with food; 20 tablet. Medrol (Hair) 4 mg Oral Tablets, Dose Pack - take 1 tablet by ORAL route as directed - follow package instructions; 1 packet. - Work release form, Medication Reconciliation Form, Thank You Letter, Antibiotic Education, Prescription Opioid Use form. - Follow up: Private Physician; When: 5 - 6 days; Reason: Recheck today's complaints, Continuance of care, Re-evaluation by your physician. - Problem is new. - Symptoms have improved. Signatures: Tressa Bañuelos, RN RN dm5 Rodney Oliveira MD MD kdr Roszak, Josh, PA PA jr8 Isabell Zarco RN RN vg1 Chris Abbott RN RN ll1 Corrections: (The following items were deleted from the chart) 12:46 12:26 08/22/2020 12:26 Discharged to Home. Impression: Migraine. Condition is Stable. vg1 Forms are Medication Reconciliation Form, Thank You Letter, Antibiotic Education, Prescription Opioid Use. Follow up: Private Physician; When: 5 - 6 days; Reason: Recheck today's complaints, Continuance of care, Re-evaluation by your physician. Problem is new. Symptoms have improved. jr8
== END 2020-08-22 12:46 | disposition home or self-care (01) ==
LOC: ER 09:26
DX: G43.909 Migraine, unspecified, not intractable, without status migrainosus (principal); F31.9 Bipolar disorder, unspecified; Z91.018 Allergy to other foods
CPT/HCPCS: 96361; 96374; 96375; 99283; J1100; J1200; J2765; J7030

== ENCOUNTER 2020-11-01 12:31 | Emergency (ER) | payer SELFPAY ==
--- OUTSIDE RECORDS SUMMARY | 2020-11-01 12:50 | XMS REPORT | Continuity of Care Document ---
:1980 Author Organization [facility] t Address [address] [place] [id number] Care Team Providers Name Role Phone Jusot MISSYWillow Attending Clinician JEANNINE, Attending Clinician Unavailable DR Curt PUENTE Attending Clinician Unavailable DR Los HUNT Attending Clinician Unavailable MAUREEN, Attending Clinician Unavailable DR Chang LAI Attending Clinician Unavailable NICOLETTE, Attending Clinician Unavailable DR Lamar CHAMBERS Attending Clinician Unavailable JEANNINE, Admitting Clinician Unavailable [...] Department ID 2020-02-22 2020-02-22 Emergency Curt Kemp [facility] [id number] 12:29:09 15:00:00 [place] [id number] [place] [id number] [place] [id number] 2019-01-07 2019-01-07 Outpatient E MAULIK PAEZ [facility] [id number] [place] 10:23:00 12:27:00 [facility] 2018-12-04 2018-12-04 Outpatient E MAULIK PUENTE [facility] [id number] [place] 10:20:00 15:57:00 KEYUR [facility] 2018-11-11 2018-11-11 Outpatient E GILBERT [facility] [id number] [place] 04:05:00 06:00:00 MARKELL [facility] 2018-10-12 2018-10-12 Outpatient E PAULINE REDDY [facility] ECC [id number] [place] 06:24:00 08:08:00 [facility] 2018-09-30 2018-09-30 Outpatient E MING, [facility] ECC [id number] [place] 13:45:00 14:12:00 [facility] 2018-09-04 2018-09-04 Outpatient E MING, [facility] ECC [id number] [place] 17:32:00 18:30:00 [facility] 2018-08-19 2018-08-19 Outpatient E HANY WILL [facility] [id number] [place] 08:43:00 10:15:00 [facility] 2018-08-08 2018-08-08 Outpatient E TRISH, [facility] ECC [id number] [place] 13:34:00 16:43:00 [facility] Results Test Description Test Time Test Comments Results Result [facility] e Comments U/S GALLBLADDER 2018-12-04 CLINICAL [...] 05:31:13CT abdomen and pelvis with contrastLocation Code: [id number] HISTORY: [id number]: Lower abdominal pain COMPARISON: NoneTechnique: Helical CT [...] % 0.0-10.0 XR CHEST 2 VIEW *OW*2018-10-12 07:25:96Z58SMDM: XR CHEST 2 VIEW *OW*HISTORY: [id number]: CoughCOMPARISON: 08/08/18INDINGS: The lungs are clear. No [...] = GMID%) 10.3 % 0.0-10.0 H THROAT [id number] 07:45:00 Test Item Value Reference Range Interpretation [...] 14:39:21PA and lateral chest, 2 viewsLocation code: [id number] HISTORY: Chest painCOMPARISON: NoneCOMMENTS:The lungs are clear and well inflated. The costophrenic angles aresharp. The cardiomediastinal silhouette is unremarkable. The bones are intact.IMPRESSION: No acute abnormality
[2020-11-01] MEDS ORDERED: LIDOCAINE 1% MPF 5 ML VIAL ONE (13:33)
--- NOTE | 2020-11-01 13:56 | ER ---
Nurse's Notes [facility] Name: Serenity Collins Age: 40 yrs Sex: Female : 1980 Arrival Date: 11/01/2020 Time: 12:32 Bed 25 Private MD: Diagnosis: Laceration without foreign body of left forearm Presentation: 11/01 12:39 Chief complaint: Patient states: Approximately 2 inch laceration to L FA sustained when ss a box fell and she caught it. No active bleeding noted at this time. Coronavirus screen: Client denies travel out of the [place] in the last 14 days. Ebola Screen: Patient denies exposure to infectious person. Patient denies travel to an Ebola-affected area in the 21 days before illness onset. Complicating Factors: There are no complicating factors for this patient. Initial Sepsis Screen: Does the patient meet any 2 criteria? No. Patient's initial sepsis screen is negative. Does the patient have a suspected source of infection? No. Patient's initial sepsis screen is negative. Risk Assessment: Do you want to hurt yourself or someone else? Patient reports no desire to harm self or others. Onset of symptoms was November 01, 2020. 12:39 Method Of Arrival: Ambulatory ss 12:39 Acuity: MARY 4 ss Historical: - Allergies: 12:41 JOE; ss - PMHx: 12:41 Anxiety; Bipolar disorder; PTSD; Rheumatoid Arthritis; ss - PSHx: 12:41 None; ss - Immunization history:: Adult Immunizations up to date, Last tetanus immunization: up to date < 5 years ago. - Social history:: Smoking status: Patient reports the use of cigarette tobacco products, smokes one pack cigarettes per day. Screenin:39 Abuse screen: Denies threats or abuse. Denies injuries from another. Nutritional ss screening: No deficits noted. Tuberculosis screening: Never had TB. Fall Risk None identified. Assessment: 12:39 General: Appears in no apparent distress. comfortable, Behavior is cooperative, ss anxious, Denies fever, feeling ill, fatigue, chills. Pain: Complains of pain in palmar aspect of left forearm Pain currently is 8 out of 10 on a pain scale. Quality of pain is described as burning, tender, Is continuous. Neuro: Level of Consciousness is awake, alert, obeys commands, Oriented to person, place, time, situation. Cardiovascular: Pulses are palpable in right radial artery and left radial artery. Respiratory: Airway is patent Respiratory effort is even, unlabored, Respiratory pattern is regular, symmetrical. GI: Patient currently denies abdominal pain, nausea, vomiting. EENT: Nares are clear Oral mucosa is moist. Derm: Skin is intact, is healthy with good turgor, Skin is dry, Skin is pink, warm \T\ dry. normal. Musculoskeletal: Circulation, motion, and sensation intact. Swelling absent. Injury Description: Laceration sustained to palmar aspect of left forearm is 2.6 to 7.5 cm long. Vital Signs: 12:39 BP 134 / 84; Pulse 106; Resp 16; Temp 99.1(TE); Pulse Ox 99% on R/A; Weight 49.9 kg; ss Height 5 ft. 2 in. (157.48 cm); Pain 8/10; 12:39 Body Mass Index 20.12 (49.90 kg, 157.48 cm) ED Course: 12:32 Patient arrived in ED. am2 12:39 Patient has correct armband on for positive identification. Bed in low position. Call ss light in reach. 12:39 Patient maintains SpO2 saturation greater than 95% on room air. ss 12:40 Triage completed. ss 12:41 Arm band placed on right wrist. ss 13:01 Kristel Mcintyre FNP-C [facility]. kb 13:01 Fabrice Morris MD is Attending Physician. kb 13:04 Lara Dan RN is Primary Nurse. ss 14:06 Assist provider with laceration repair on palmar aspect of left forearm that was ss between 2.6 to 7.5 cm using sutures. Set up tray. Performed by Kristel CHOUDHURY Dressed with 4X4s, Kerlix, Patient tolerated well. Patient did not have IV access during this emergency room visit. Administered Medications: 13:47 Drug: Lidocaine (1 %) 1 vials {Note: Administered by LUANN Humphries.} Volume: 5 ml; Route: ss Infiltration; Outcome: 13:56 Discharge ordered by . kb 14:06 Discharged to home ambulatory. ss 14:06 Condition: good 14:06 Discharge instructions given to patient, Instructed on discharge instructions, follow up and referral plans. wound care, Demonstrated understanding of instructions, follow-up care, medications. 14:07 Patient left the ED. Signatures: Kristel Mcintyre, MACEY GORE-Lara Saucedo RN RN Alisson Zayas Corrections: (The following items were deleted from the chart) 13:48 13:47 Lidocaine (1 %) 1 vials 5 ml Infiltration 5 ml [facility]
--- NOTE | 2020-11-01 13:57 | EDPHYS ---
Physician Documentation [facility] Name: Serenity Collins Age: 40 yrs Sex: Female : 1980 Arrival Date: 11/01/2020 Time: 12:32 Bed 25 Private MD: ED Physician Fabrice Morris HPI: 11/01 13:57 This 40 yrs old Female presents to ER via Ambulatory with complaints of kb Laceration To Arm. 13:57 The patient has a laceration related to: box fell and something cut her arm occurred at home. The laceration(s) is(are) located on the palmar aspect of left forearm. Onset: The symptoms/episode began/occurred just prior to arrival. Associated signs and symptoms: The patient has no apparent associated signs or symptoms. The patient has not experienced similar symptoms in the past. The patient has not recently seen a physician. Pt states she was trying to get a box down from a high place in the garage. States it fell and something cut her arm. Last tetanus shot within 5 years. Historical: - Allergies: 12:41 JOE; ss - PMHx: 12:41 Anxiety; Bipolar disorder; PTSD; Rheumatoid Arthritis; ss - PSHx: 12:41 None; ss - Immunization history:: Adult Immunizations up to date, Last tetanus immunization: up to date < 5 years ago. - Social history:: Smoking status: Patient reports the use of cigarette tobacco products, smokes one pack cigarettes per day. ROS: 13:58 Constitutional: Negative for fever, chills, and weight loss, MS/Extremity: Negative for kb injury and deformity, Neuro: Negative for headache, weakness, numbness, tingling, and seizure. 13:58 Skin: Positive for laceration(s), of the palmar aspect of left forearm. Exam: 13:58 Constitutional: This is a well developed, well nourished patient who is awake, alert, kb and in no acute distress. Head/Face: Normocephalic, atraumatic. Respiratory: Respirations even and unlabored. No increased work of breathing, no retractions or nasal flaring. MS/ Extremity: Pulses equal, no cyanosis. Neurovascular intact. Full, normal range of motion. Neuro: Awake and alert, GCS 15, oriented to person, place, time, and situation. Moves all extremities. Normal gait. 13:58 Skin: injury, laceration(s), the wound is approximately 5 cm(s), of the palmar aspect of left forearm, that can be described as clean, no foreign body, linear, without bleeding. Vital Signs: 12:39 BP 134 / 84; Pulse 106; Resp 16; Temp 99.1(TE); Pulse Ox 99% on R/A; Weight 49.9 kg; ss Height 5 ft. 2 in. (157.48 cm); Pain 8/10; 12:39 Body Mass Index 20.12 (49.90 kg, 157.48 cm) ss Laceration: 13:54 Wound Repair of 5cm ( 2.0in ) subcutaneous laceration to palmar aspect of left forearm. kb Linear shaped.. Distal neuro/vascular/tendon intact. Anesthesia: Wound infiltrated with 5 mls of 1% lidocaine. Wound prep: Extensive cleansing with hibiclenz by me, Wound irrigation with saline by me. Skin closed with 9 4-0 Prolene using simple sutures and sterile technique. Patient tolerated well. MDM: 13:02 Patient medically screened. kb 13:54 Data reviewed: vital signs, nurses notes. Data interpreted: Pulse oximetry: on room air kb is 99 %. Interpretation: normal. Counseling: I had a detailed discussion with the patient and/or guardian regarding: the historical points, exam findings, and any diagnostic results supporting the discharge/admit diagnosis, the need for outpatient follow up, a family practitioner, to return to the emergency department if symptoms worsen or persist or if there are any questions or concerns that arise at home. 11/01 13:09 Order name: Prolene, Sutures; Complete Time: 13:14 kb 11/01 13:09 Order name: Dressing - Wound; Complete Time: 13:14 kb 11/01 13:09 Order name: Gloves, Sterile; Complete Time: 13:14 kb 11/01 13:09 Order name: Setup Suture Tray; Complete Time: 13:14 kb Administered Medications: 13:47 Drug: Lidocaine (1 %) 1 vials {Note: Administered by LUANN Humphries.} Volume: 5 ml; Route: ss Infiltration; Disposition: 18:28 Co-signature as Attending Physician, Fabrice Morris MD I agree with the assessment and tw4 plan of care. Disposition: 11/01/20 13:56 Discharged to Home. Impression: Laceration without foreign body of left forearm. - Condition is Stable. - Discharge Instructions: Laceration Care, Adult, [id number]. - Medication Reconciliation Form, Thank You Letter, Antibiotic Education, Prescription Opioid Use form. - Follow up: Emergency Department; When: As needed; Reason: Worsening of condition. Follow up: Private Physician; When: 2 - 3 days; Reason: Recheck today's complaints, Continuance of care, Re-evaluation by your physician. Signatures: Kristel Mcintyre FNP-C FNP-Ckb Smirch, Shelby, RN RN ss Fabrice Morris MD MD tw4 Corrections: (The following items were deleted from the chart) 14:07 13:56 11/01/2020 13:56 Discharged to Home. Impression: Laceration without foreign body ss of left forearm. Condition is Stable. Forms are Medication Reconciliation Form, Thank You Letter, Antibiotic Education, Prescription Opioid Use. Follow up: Emergency Department; When: As needed; Reason: Worsening of condition. Follow up: Private Physician; When: 2 - 3 days; Reason: Recheck today's complaints, Continuance of care, Re-evaluation by your physician. kb
[2020-11-01 14:16] VITALS: BP 134/84; TEMP 99.1; O2SAT 99
== END 2020-11-01 14:07 | disposition home or self-care (01) ==
LOC: ER 12:31
PROC: 0JQH0ZZ Repair Left Lower Arm Subcutaneous Tissue and Fascia, Open Approach (ICD-10-PCS; principal; 2020-11-01)
DX: S51.812A Laceration without foreign body of left forearm, initial encounter (principal); W22.8XXA Striking against or struck by other objects, initial encounter; Y93.89 Activity, other specified; Y92.015 Private garage of single-family (private) house as the place of occurrence of the external cause; Z91.018 Allergy to other foods; F17.210 Nicotine dependence, cigarettes, uncomplicated
CPT/HCPCS: 99284

== ENCOUNTER 2020-11-12 09:09 | Emergency (ER) | payer SELFPAY ==
--- OUTSIDE RECORDS SUMMARY | 2020-11-12 09:13 | XMS REPORT | Continuity of Care Document ---
:1980 Author Organization [facility] t Address [address] [place] [address] Care Team Providers Name Role Phone Justo MISSYWillow Attending Clinician DR JEANNINE Attending Clinician Unavailable DR Curt PUENTE Attending [...] Department ID 2020-02-22 2020-02-22 Emergency Curt Kemp [facility] [id number] 12:29:09 15:00:00 [place] [id number] [place] [id number] [place] [id number] 2019-01-07 2019-01-07 Outpatient E MAULIK PAEZ [facility] [id number] [place] 10:23:00 12:27:00 [facility] 2018-12-04 2018-12-04 Outpatient E MAULIK PUENTE [facility] [id number] [place] 10:20:00 15:57:00 KEYUR [facility] 2018-11-11 2018-11-11 Outpatient E GILBERT, [facility] E[facility] [id number] [place] 04:05:00 06:00:00 MARKELL [facility] 2018-10-12 2018-10-12 Outpatient E PAULINE REDDY [facility] ECC [id number] [place] 06:24:00 08:08:00 [facility] 2018-09-30 2018-09-30 Outpatient E MING, [facility] ECC [id number] [place] 13:45:00 14:12:00 [facility] 2018-09-04 2018-09-04 Outpatient E MING, [facility] ECC [id number] [place] 17:32:00 18:30:00 [facility] 2018-08-19 2018-08-19 Outpatient E HANY WILL [facility] ECC [id number] [place] 08:43:00 10:15:00 [facility] 2018-08-08 2018-08-08 Outpatient E TRISH, [facility] ECC [id number] [place] 13:34:00 16:43:00 [facility] Results Test Description Test Time Test Comments Results Result [facility] e Comments U/S GALLBLADDER 2018-12-04 CLINICAL [...] 05:31:13CT abdomen and pelvis with contrastLocation Code: [id number] HISTORY: [id number]: Lower abdominal pain COMPARISON: NoneTechnique: Helical CT [...] % 0.0-10.0 XR CHEST 2 VIEW *OW*2018-10-12 07:25:54M37EWHL: XR CHEST 2 VIEW *OW*HISTORY: [id number]: CoughCOMPARISON: 08/08/18INDINGS: The lungs are clear. No [...] = GMID%) 10.3 % 0.0-10.0 H THROAT [id number] 07:45:00 Test Item Value Reference Range Interpretation [...] 14:39:21PA and lateral chest, 2 viewsLocation code: [id number] HISTORY: Chest painCOMPARISON: NoneCOMMENTS:The lungs are clear and well inflated. The costophrenic angles aresharp. The cardiomediastinal silhouette is unremarkable. The bones are intact.IMPRESSION: No acute abnormality
[2020-11-12 10:41] LABS: Urine Bacteria <20 /HPF (<20); Urine Mucus HEAVY /HPF (NONE SEEN); Urine RBC NONE SEEN /HPF (NONE SEEN)
[2020-11-12 13:16] LABS: Absolute Lymphocytes (CBC) 2.2 K/uL (0.7-4.9); Basophils % 0.5 % (0-1.3); Hematocrit 42.6 % (36.0-45.0); Lymphocytes % 23.6 % (15.3-44.8); MPV 9.7 fL (7.6-11.3); RBC Red Blood Cell Count 4.53 M/uL (3.86-4.86)
[2020-11-12 13:39] LABS: ALT/SGPT 15 U/L (12-78); AST/SGOT 9 U/L (15-37); Albumin 3.7 g/dL (3.4-5.0); Alkaline Phosphatase 65 U/L (45-117); BUN Blood Urea Nitrogen 9 mg/dL (7-18); Bicarbonate 25 mmol/L (21-32); Bilirubin Direct 0.1 mg/dL (0-0.2); Bilirubin Total 0.5 mg/dL (0.2-1.0); Glucose Level 87 mg/dL (74-106); Lipase 80 U/L (73-393); Protein, Total 7.4 g/dL (6.4-8.2); Sodium Level 141 mmol/L (136-145)
[2020-11-12] MEDS ORDERED: KETOROLAC 30 MG/ML INJ ONE (14:41)
[2020-11-12] MEDS ORDERED: NA CHLORIDE 0.9% 1,000 ML ONE (14:41)
--- NOTE | 2020-11-12 15:10 | RAD REPORT ---
EXAM DESCRIPTION: CTAbdomen Pelvis W Contrast - 11/12/2020 2:59 pm CLINICAL HISTORY: Abdominal pain. ABD PAIN COMPARISON: Abdomen Pelvis W Contrast dated 01/29/2020; CT ABD PELVIS W CONTRAST dated 11/17/2011; Tr ansvaginal Study Probe dated 01/29/2020 TECHNIQUE: Biphasic CT imaging of the abdomen and pelvis was performed with 100 ml non-ionic IV cont rast. All CT scans are performed using dose optimization technique as appropriate and may include automated exposure control or mA/KV adjustment according to patient size. FINDINGS: The lung bases are clear. The liver, spleen, pancreas, adrenal glands and kidneys are within normal limits. No bowel obstruction, free air, or abscess. The appendix is normal. No evidence of significant lymp hadenopathy. No suspicious bony findings. 6 cm left ovarian cyst is present in the inferior left posterior aspect of the pelvis. Mild free flui d. IMPRESSION: 6 cm inferior left ovarian cyst. This appears mildly reduced in size since 01/29/2020 pr ior study. Recommend a follow-up pelvic ultrasound and 3-6 months for surveillance purposes.
--- NOTE | 2020-11-12 15:46 | EDPHYS ---
Physician Documentation [facility] Name: Serenity Collins Age: 40 yrs Sex: Female : 1980 Arrival Date: 11/12/2020 Time: 09:11 Bed 26 Private MD: ED Physician Ben Otero HPI: 11/12 14:20 This 40 yrs old Female presents to ER via Ambulatory with complaints of pm1 Pelvic Pain, Headache. 14:20 The patient presents with pelvic pain, that is located in/on the suprapubic area, pm1 urinary symptoms, None, vaginal discharge, that is yellow discharge, patient has not had similar discharge in the past. Onset: The symptoms/episode began/occurred On and off for 1 month. Modifying factors: The symptoms are alleviated by nothing, the symptoms are aggravated by nothing. Associated signs and symptoms: Pertinent negatives: diarrhea, fever, vomiting. Severity of symptoms: in the emergency department the symptoms are actually worse. The patient is sexually active, reportedly has a single partner, last had intercourse 2 weeks ago with ex-boyfriend that she just found out was cheating on her. He is apparently sleeping with a prostitute. The patient's method of control includes nothing. The patient has not experienced similar symptoms in the past. The patient has not recently seen a physician. 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 - Social history:: Smoking status: Patient reports the use of cigarette tobacco products, smokes one-half pack cigarettes per day. ROS: 14:20 Positive for pelvic pain, vaginal discharge, Negative for burning with urination, pm1 vaginal itching. 14:20 Constitutional: Negative for fever, chills, and weight loss, Cardiovascular: Negative for chest pain, palpitations, and edema, Respiratory: Negative for shortness of breath, cough, wheezing, and pleuritic chest pain. 14:20 Back: Negative for injury and pain. 14:20 MS/Extremity: Negative for injury and deformity, Skin: Negative for injury, rash, and discoloration, Neuro: Negative for headache, weakness, numbness, tingling, and seizure. 14:20 Abdomen/GI: Positive for abdominal pain, of the suprapubic area, Negative for nausea, vomiting, and diarrhea. 14:20 : Positive for vaginal discharge, Negative for burning with urination. Exam: 14:20 Constitutional: This is a well developed, well nourished patient who is awake, alert, pm1 and in no acute distress. Head/Face: Normocephalic, atraumatic. 14:20 Back: No spinal tenderness. No costovertebral tenderness. Full range of motion. Skin: Warm, dry with normal turgor. Normal color with no rashes, no lesions, and no evidence of cellulitis. MS/ Extremity: Pulses equal, no cyanosis. Neurovascular intact. Full, normal range of motion. 14:20 Cardiovascular: Exam negative for acute changes, Rate: normal, Rhythm: regular, Pulses: no pulse deficits are appreciated. 14:20 Respiratory: Exam negative for acute changes, respiratory distress, shortness of breath, Breath sounds: are clear throughout. 14:20 : Pelvic Exam: External exam: is normal, Speculum exam: no bleeding is noted, no cervicitis, bimanual exam reveals no cervical motion tenderness, no adnexa tenderness or masses bilaterally, Yazmin ALMANZAR present as supervisor [employer]. Sexual behavior: the patient is sexually active, and reports a single partner. 14:20 Neuro: Exam negative for acute changes, Orientation: is normal, Mentation: is normal, Motor: is normal, moves all fours. Vital Signs: 09:58 BP 121 / 98; Pulse 66; Resp 16; Temp 98.5; Pulse Ox 100% on R/A; Weight 49.9 kg; Height iw 5 ft. 2 in. (157.48 cm); Pain 9/10; 09:58 Body Mass Index 20.12 (49.90 kg, 157.48 cm) iw MDM: 12:21 Patient medically screened. pm1 15:36 Data reviewed: vital signs. Data interpreted: Pulse oximetry: on room air is 100 %. pm1 Interpretation: normal. Counseling: I had a detailed discussion with the patient and/or guardian regarding: the historical points, exam findings, and any diagnostic results supporting the discharge/admit diagnosis, lab results, the need for outpatient follow up, STD clinic. 11/12 10:09 Order name: Urine Microscopic Only; Complete Time: 12:36 [facility] 11/12 10:10 Order name: Urine --Ancillary (enter results); Complete Time: 16:09 [facility] 11/12 10:10 Order name: Urine Dipstick--Ancillary (enter results); Complete Time: 16:09 [facility] 11/12 10:43 Order name: Urine Culture [facility] 11/12 12:40 Order name: Basic Metabolic Panel 11/12 12:40 Order name: CBC with Diff 11/12 12:40 Order name: Hepatic Function 11/12 12:40 Order name: Lipase 11/12 12:40 Order name: Wet Prep 11/12 12:40 Order name: GC (GONORR/CHLAMYDIA) Probe 11/12 12:40 Order name: Basic Metabolic Panel; Complete Time: 14:17 [facility] 11/12 12:40 Order name: CBC with Automated Diff; Complete Time: 14:17 [facility] 11/12 12:40 Order name: Liver (Hepatic) Function; Complete Time: 14:17 [facility] 11/12 12:40 Order name: Lipase; Complete Time: 14:17 [facility] 11/12 12:40 Order name: IV Saline Lock; Complete Time: 13:13 pm11/12 12:40 Order name: Labs collected and sent; Complete Time: 13:13 pm1 11/12 12:40 Order name: Pelvic Exam Setup; Complete Time: 13:13 pm11/12 12:41 Order name: Wet Prep; Complete Time: 15:03 [facility] 11/12 14:18 Order name: CT Abd/Pelvis - IV Contrast Only; Complete Time: 15:20 pm1 Administered Medications: 14:25 Drug: TORadol 30 mg Route: IVP; Site: right antecubital; iw 14:25 Drug: NS 0.9% 1000 ml Route: IV; Rate: 1000 ml; Site: right antecubital; iw 15:55 Drug: Flagyl 2 grams Route: PO; iw 15:55 Drug: AZITHromycin 1 grams Route: PO; iw 15:55 Drug: Rocephin (cefTRIAXone) 500 mg Route: IM; Site: right ventrogluteal; iw Disposition: 11/12/20 15:45 Discharged to Home. Impression: Trichomoniasis, Headache, Unspecified ovarian cysts. - Condition is Stable. - Discharge Instructions: General Headache Without Cause, Sexually Transmitted Disease, Trichomoniasis. - Medication Reconciliation Form, Thank You Letter, Antibiotic Education, Prescription Opioid Use form. - Follow up: Emergency Department; When: As needed; Reason: Worsening of condition. Follow up: Private Physician; When: 2 - 3 days; Reason: Recheck today's complaints, Continuance of care, Re-evaluation by your physician. - Problem is new. - Symptoms have improved. Addendum: 11/13/2020 18:36 Co-signature as Attending Physician, Ben Otero MD. m a2 Signatures: Dispatcher [employer] Yazmin Benton RN RN iw Donny Beebe, SERVICE TRAINER SERVICE TRAINER pm1 Ben Otero MD MD ma2 Corrections: (The following items were deleted from the chart) 11/12 16:11 15:45 11/12/2020 15:45 Discharged to Home. Impression: TrichomoniasisHeadache; iw Unspecified ovarian cysts. Condition is Stable. Forms are Medication Reconciliation Form, Thank You Letter, Antibiotic Education, Prescription Opioid Use. Follow up: Emergency Department; When: As needed; Reason: Worsening of condition. Follow up: Private Physician; When: 2 - 3 days; Reason: Recheck today's complaints, Continuance of care, Re-evaluation by your physician. Problem is new. Symptoms have improved. pm1
--- NOTE | 2020-11-12 15:46 | ER ---
Nurse's Notes [facility] Name: Serenity Collins Age: 40 yrs Sex: Female : 1980 Arrival Date: 11/12/2020 Time: 09:11 Bed 26 Private MD: Diagnosis: Headache;Unspecified ovarian cysts;Trichomoniasis Presentation: 11/12 09:58 Chief complaint: Patient states: having some pelvic pain and headache X 1 week, hurts iw to stand and walk, is having a lot of clear discharge, has some pressure when she urinates. Coronavirus screen: At this time, the client does not indicate any symptoms associated with coronavirus-19. Ebola Screen: Patient negative for fever greater than or equal to 101.5 degrees Fahrenheit, and additional compatible Ebola Virus Disease symptoms Patient denies exposure to infectious person. Patient denies travel to an Ebola-affected area in the 21 days before illness onset. No symptoms or risks identified at this time. Initial Sepsis Screen: Does the patient meet any 2 criteria? No. Patient's initial sepsis screen is negative. Does the patient have a suspected source of infection? No. Patient's initial sepsis screen is negative. Risk Assessment: Do you want to hurt yourself or someone else? Patient reports no desire to harm self or others. Onset of symptoms was November 05, 2020. 09:58 Method Of Arrival: Ambulatory iw 09:58 Acuity: MARY 3 iw Triage Assessment: 14:00 Pain: Also complains of no other associated symptoms. iw 14:00 Pain: Pain currently is 8 out of 10 on a pain scale. iw 14:00 Pain: Pain began 1 day ago. iw 15:00 Headache History: The patient has had previous headaches and this one is similar to iw previous episodes. General: Appears in no apparent distress. Behavior is calm, cooperative. 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 - Social history:: Smoking status: Patient reports the use of cigarette tobacco products, smokes one-half pack cigarettes per day. Screenin:06 Abuse screen: Denies threats or abuse. Denies injuries from another. Nutritional iw screening: No deficits noted. Tuberculosis screening: No symptoms or risk factors identified. Fall Risk None identified. Assessment: 14:00 General: Appears in no apparent distress. Behavior is calm, cooperative. Pain: iw Complains of pain in head and pelvis. Neuro: Level of Consciousness is awake, alert, obeys commands, Oriented to person, place, time, situation, Moves all extremities. Full function. Cardiovascular: Patient's skin is warm and dry. Respiratory: Respiratory effort is even, unlabored, Respiratory pattern is regular, symmetrical. GI: Reports lower abdominal pain. : Reports discharge, from vagina that is. Derm: Skin is intact, is healthy with good turgor. Musculoskeletal: Range of motion: intact in all extremities. 15:12 Reassessment: Patient appears in no apparent distress at this time. Patient and/or iw family updated on plan of care and expected duration. Pain level reassessed. Patient is alert, oriented x 3, equal unlabored respirations, skin warm/dry/pink. Vital Signs: 09:58 BP 121 / 98; Pulse 66; Resp 16; Temp 98.5; Pulse Ox 100% on R/A; Weight 49.9 kg; Height iw 5 ft. 2 in. (157.48 cm); Pain 9/10; 09:58 Body Mass Index 20.12 (49.90 kg, 157.48 cm) iw ED Course: 09:11 Patient arrived in ED. as 10:00 Triage completed. iw 10:00 Arm band placed on. iw 12:21 Donny Beebe NP is PHCP. pm1 12:21 Ben Otero MD is Attending Physician. pm1 12:48 Yazmin Dover RN is Primary Nurse. iw 13:06 Initial lab(s) drawn, by me, sent to lab. Inserted saline lock: 20 gauge in right iw antecubital area, using aseptic technique. Blood collected. 14:00 Patient has correct armband on for positive identification. iw 14:19 Assist provider with pelvic exam: Set up pelvic tray. Performed by Donny Beebe NP iw Specimens sent to lab. Patient tolerated well. 14:20 Wet Prep Sent. iw 14:43 Radiology exam delayed due to test not completed at this time. vm2 15:00 CT Abd/Pelvis - IV Contrast Only In Process Unspecified. EDMS 16:00 IV discontinued, intact, bleeding controlled, No redness/swelling at site. Pressure iw dressing applied. Administered Medications: 14:25 Drug: TORadol 30 mg Route: IVP; Site: right antecubital; iw 14:25 Drug: NS 0.9% 1000 ml Route: IV; Rate: 1000 ml; Site: right antecubital; iw 15:55 Drug: Flagyl 2 grams Route: PO; iw 15:55 Drug: AZITHromycin 1 grams Route: PO; iw 15:55 Drug: Rocephin (cefTRIAXone) 500 mg Route: IM; Site: right ventrogluteal; iw Outcome: 15:45 Discharge ordered by MD. pm1 16:10 Discharged to home ambulatory, with friend. iw 16:10 Condition: good 16:10 Discharge instructions given to patient, Instructed on discharge instructions, follow up and referral plans. Demonstrated understanding of instructions, follow-up care, medications, Prescriptions given X 1. 16:11 Patient left the ED. iw Signatures: Dispatcher [employer] Jaylin Bain Irene, RN RN iw Donny Beebe, LUANN REAL ESTATE DIRECTOR pm1 Isabell Palacios 2
[2020-11-12 15:56] LABS: Urine Blood NEGATIVE (Negative); Urine Glucose NEGATIVE (Negative); Urine Protein NEGATIVE (NEG); Urine pH 5.5 (5.0-7.0)
[2020-11-12] MEDS ORDERED: LIDOCAINE 1% MPF 5 ML VIAL ONE (15:58)
[2020-11-12] MEDS ORDERED: AZITHROMYCIN 250 MG TAB ONE (15:59)
[2020-11-12] MEDS ORDERED: metroNIDAZOLE 500 MG TABLET ONE (15:59)
[2020-11-12] MEDS ORDERED: CEFTRIAXONE 500 MG/VIAL ONE (15:59)
[2020-11-12 16:26] VITALS: BP 121/98; TEMP 98.5; O2SAT 100
[2020-11-14 17:40] LABS: C.trachomatis RNA,TMA Not Detected (Not Detected)
== END 2020-11-12 16:11 | disposition home or self-care (01) ==
LOC: ER 09:09
DX: A59.9 Trichomoniasis, unspecified (principal); N83.209 Unspecified ovarian cyst, unspecified side; F31.9 Bipolar disorder, unspecified; F17.210 Nicotine dependence, cigarettes, uncomplicated; Z91.018 Allergy to other foods
CPT/HCPCS: 36415; 74177; 80048; 80076; 81003; 81015; 81025; 83690; 85025; 87086; 87088; 87210; 87490; 87590; 96372; 96374; 99284; J0696; J7030; Q9967

== ENCOUNTER 2021-07-10 10:02 | Emergency (ER) | payer SELFPAY ==
--- OUTSIDE RECORDS SUMMARY | 2021-07-10 10:05 | XMS REPORT | Continuity of Care Document ---
:1980 Author Organization [facility] t Address [address] [place] [address] Care Team Providers Name Role Phone Pcp, Does Not Have A Primary Care Physician Leonid Attending Clinician Unavailable Pcp, Does Not Have A Attending Clinician Jaleesa Koehler Attending Clinician JALEESA LIPSCOMB Attending Clinician Unavailable DR JEANNINE Attending Clinician Unavailable DR Curt PUENTE Attending Clinician Unavailable DR Los HUNT Attending Clinician Unavailable MAUREEN, Attending Clinician Unavailable DR Chang LAI Attending Clinician Unavailable DR NICOLETTE Attending Clinician Unavailable DR Lamar CHAMBERS Attending Clinician Unavailable Leonid Admitting Clinician Unavailable DR JEANNINE Admitting Clinician Unavailable DR Curt PUENTE Admitting Clinician Unavailable DR Los HUNT Admitting Clinician Unavailable DR MAUREEN Admitting Clinician Unavailable DR Chang LAI Admitting Clinician Unavailable DR NICOLETTE Admitting Clinician Unavailable DR Lamar CHAMBERS Admitting Clinician Unavailable Payers Payer Name Policy Type Policy Number Effective Date Expiration Date S ource Problems This patient has no known problems. Allergies, Adverse Reactions, Alerts Allergy Allergy Status Severity Reaction(s) Onset Inactive Treating Comm ents Source Name Type Date Date Clinician NO KNOWN Drug Active [facility] [place] Social History Social Habit Start Date Stop Date Quantity Comments Source Exposure to Not sure [facility] SARS-CoV-2 (event) Medica l Branch Sex Assigned At [birth year] [facility] 00:00:00 00:00:00 Medical Branch Smoking Status Start Date Stop Date Source Unknown if ever smoked [facility] Medications Ordered Filled Start Stop Current Ordering Indication Dosage Frequency Signature Comments Components Source Medication Medication Date Date Medication? Clinician (SIG) Name Name acetaminoph 2019- No 1000mg 1,000 mg, Univers en 02-21 Oral, ity of (TYLENOL) 19:15: 18:18 [place]CE[place]00 dose, Wed Medical 1,000 mg 02/22/20 at Branch 1415, ANTOINETTE Vital Signs Vital Name Observation Time Observation Value Comments Source Systolic blood 2020-02-22 18:00:00 128 mm[Hg] Univer sity of [facility] Diastolic blood 2020-02-22 18:00:00 74 mm[Hg] [facility] Heart rate 2020-02-22 18:00:00 75 /min Universi ty [facility] Respiratory rate 2020-02-22 18:00:00 20 /[facility] in 2020-02-22 18:00:00 97 /min University of Arterial blood by [facility] Pulse oximetry Branch Body temperature 2020-02-22 17:27:00 37 [facility] Body height 2020-02-22 17:27:00 [facility] Body weight 2020-02-22 17:27:00 72.576 kg [facility] BMI 2020-02-22 17:27:00 29.26 kg/m2 [facility] Systolic blood 2020-02-22 18:00:00 128 mm[Hg] Univer sity of [facility] Diastolic blood 2020-02-22 18:00:00 74 mm[Hg] Unive rsity of [facility] Heart rate 2020-02-22 18:00:00 75 /min Universi ty [facility] Respiratory rate 2020-02-22 18:00:00 20 /min [facility] saturation in 2020-02-22 18:00:00 97 /min University [facility] Arterial blood by [facility] Pulse oximetry Branch Body temperature 2020-02-22 17:27:00 37 Xin [facility] Body height 2020-02-22 17:27:00 157.5 cm [facility] Body weight 2020-02-22 17:27:00 72.576 kg [facility] BMI 2020-02-22 17:27:00 29.26 kg/m2 [facility] Procedures Procedure Date / Time Performing Clinician Source Performed US PELVIS COMPLETE WITH 2020-02-22 19:23:20 Curt Lipscomb [facility] TRANSVAGINAL [facility] COMP. METABOLIC PANEL 2020-02-22 18:23:00 Curt Lipscomb [facility] ([id number]) [facility] CBC WITH DIFFERENTIAL 2020-02-22 18:23:00 Curt Lipscomb [facility] URINALYSIS 2020-02-22 18:23:00 Curt Lipscomb [place] [facility] POCT TEST 2020-02-22 18:15:00 Curt Lipscomb [facility] CONSENT/REFUSAL FOR 2020-02-22 17:17:30 Doctor Unassigned, No Un [facility] DIAGNOSIS AND TREATMENT Name [facility] Encounters Start End Encounter Admission Attending Care Care Encounter Source Date/Time Date/Time Type Type Clinicians Facility Department ID 2021-07-01 Outpatient Lezak_Kayla [facility] [id number] [place] 03:18:47 [id number] [facility] 2021-07-01 Outpatient Lezak_Kayla [facility] [place] 02:42:56 [id number] [facility] 2021-06-29 Outpatient Lezak_Kayla [facility] [id number] [place] 09:37:27 [id number] [facility] 2021-07-02 2021-07-02 Telephone Pcp, [facility] [id number] Univers 00:00:00 00:00:00 Patient NIR [id number] i ty of Does Not [facility] 4.2.7.2.686 [place] A [id number] [facility] 199 Branch 2020-02-22 2020-02-22 Emergency Curt Lipscomb [id number] Univers 12:29:09 15:00:00 Jaleesa Cates [id number] i ty of [place] 4.2.7.2.686 [facility] [id number] [address] 2020-02-22 2020-02-22 Emergency Curt Lipscomb [facility] [id number] 12:29:09 15:00:00 Jaleesa Cates [id number] [place] 4.2.7.2.686 Midnight [id number] [facility] 2020-02-22 2020-02-22 Emergency X Curt LIPSCOMB [facility] ERT [id number] Univers 12:29:09 12:29:09 ity [facility] 2019-01-07 2019-01-07 Outpatient E JEANNINE [facility] [id number] [place] 10:23:00 12:27:00 [facility] 2018-12-04 2018-12-04 Outpatient E CINDI [facility] [id number] [place] 10:20:00 15:57:00 KEYUR [facility] 2018-11-11 2018-11-11 Outpatient E GILBERT [facility] [id number] [place] 04:05:00 06:00:00 MARKELL [facility] 2018-10-12 2018-10-12 Outpatient E PAULINE REDDY [facility] [id number] [place] 06:24:00 08:08:00 Medica l [facility] 2018-09-30 2018-09-30 Outpatient E MING [facility] [id number] [place] 13:45:00 14:12:00 [facility]ica l [facility] 2018-09-04 2018-09-04 Outpatient E MING [facility] [id number] [place] 17:32:00 18:30:00 [facility]ica [facility] 2018-08-19 2018-08-19 Outpatient E HANY WILL [facility] [id number] [place] 08:43:00 10:15:00 [facility]ica [facility] 2018-08-08 2018-08-08 Outpatient E TRISH [facility] [id number] [place] 13:34:00 16:43:00 [facility] Results Test Description Test Test Results Result Source Time Comments Comments US PELVIS 2020-02- HISTORY: Pelvic pain Univ ersity of COMPLETE WITH 08 and history of left [place] [facility] TRANSVAGINAL 19:31:48 hydrosalpinx. Branch TECHNIQUE: Both transabdominal and transvaginal pelvic ultrasound studieswere completed by the technologist. FINDINGS: Uterus is of normal size and shape, lying and retroflexedposition in the pelvis, measures approximately 7.7 x 4.0 x 5.5 cm in sizewith heterogeneous myometrial texture with a single 17 x 14 mm intramuralfibroid noted in the left anterior wall of the body of the uterus. Small 5 mm size nabothian cysts noted in the external os region of thecervix. Endometrial echo complex is 3.5 mm. No free fluid in wkgosr-va-nue. Right ovary is 3.1 x 2.5 x 1.7 cm (7.30 ml) and left ovary is 2.6 x 2.2 x1.5 cm (4.80 ml). Irregular shaped cystic lesion noted in the left adnexaconsistent with left-sided hydrosalpinx with maximum distended diameter of4.5 cm in the fimbrial and. The dilated fallopian tube is filled withessentially echo-free fluid. There is no free fluid in the centimeter.Prominent vessels are seen in the left adnexa. Right ovary showed 16mm cyst. CONCLUSIONS: 1. Normal size uterus with single 17 mm intramural fibroid in the leftanterior wall of the lower body of uterus.2. Left-sided hydrosalpinx. No sonographic signs of pyosalpinx ortubo-ovarian abscess. No free fluid in the cul-de-sac. [facility], Radiant Results Inft User - 02/22/2020 2:32 PM CDTHISTORY: Pelvic pain and history of left hydrosalpinx.TECHNIQUE: Both transabdominal and transvaginal pelvic ultrasound studieswere completed by the technologist.FINDINGS: Uterus is of normal size and shape, lying and retroflexedposition in the pelvis, measures approximately 7.7 x 4.0 x 5.5 cm in sizewith heterogeneous myometrial texture with a single 17 x 14 mm intramuralfibroid noted in the left anterior wall of the body of the uterus.Small 5 mm size nabothian cysts noted in the external os region of thecervix. Endometrial echo complex is 3.5 mm. No free fluid in njlahx-hc-bde. Right ovary is 3.1 x 2.5 x 1.7 cm (7.30 ml) and left ovary is 2.6 x 2.2 x1.5 cm (4.80 ml). Irregular shaped cystic lesion noted in the left adnexaconsistent with left-sided hydrosalpinx with maximum distended diameter of4.5 cm in the fimbrial and. The dilated fallopian tube is filled withessentially echo-free fluid. There is no free fluid in the centimeter.Prominent vessels are seen in the left adnexa.Right ovary showed 16mm cyst.CONCLUSIONS: 1. Normal size uterus with single 17 mm intramural fibroid in the leftanterior wall of the lower body of uterus.2. Left-sided hydrosalpinx. No sonographic signs of pyosalpinx ortubo-ovarian abscess. No free fluid in the cul-de-sac. URINALYSIS 2020-02-22 19:04:00 Test Item Value Reference Range Interpretation Comme nts APPEARANCE (test code = Clear Clear 5134367803) COLOR (test code = 1548195385) Yellow Yellow PH (test code = 0261907631) 4.8-8.0 SP GRAVITY (test code = 1.003-1.030 9143270419) GLU U QUAL (test code = Normal Normal 3826859088) BLOOD (test code = 6872494980) 1+ Negative A KETONES (test code = 8003062800) Negative Negative PROTEIN (test code = 2887-8) Negative Negative UROBILIN (test code = Normal Normal 9111408659) BILIRUBIN (test code = Negative Negative 0352803571) NITRITE (test code = 5370916953) Negative Negative LEUK OMEGA (test code = Negative Negative 8874637428) RBC/HPF (test code = 4492890661) See_Comment H [Automated message] The system which [employer] nerated this result transmit saw reference range: 0 - 3 HP F. The reference range was not used to interpret th is result as normal/abnormal . WBC/HPF (test code = 2604677625) See_Comment [Automated message] The system which Wannafun nerated this result transmit saw reference range: 0 - 5 HP F. The reference range was not used to interpret th is result as normal/abnormal . BACTERIA (test code = Few Negative A 8624542150) MUCOUS (test code = 7607433376) Moderate Negative LPF A SQ EPITH (test code = <1 HPF 0486829390) Lab Interpretation (test code = Abnormal 18224-4) [facility] (01706[facility]2020-02-22 18:51:00 Test Item Value Reference Range Interpretation Comments NA (test code = 139 mmol/L 135-145 4513412599) K (test code = 4.2 mmol/L 3.5-5 8907996306) CL (test code = 109 mmol/L 98-108 H 0056529321) CO2 TOTAL (test code = 21 mmol/L 23-31 L 2401288470) AGAP (test code = 2-16 3030778363) BUN (test code = 12 mg/dL 7-23 3900220413) GLUCOSE (test code = 101 mg/dL 70-110 1055883837) CREATININE (test code = 0.50 mg/dL 0.5-1.04 8208112199) TOTAL BILI (test code = 0.4 mg/dL 0.1-1.1 4726545450) CALCIUM (test code = 9.5 mg/dL 8.6-10.6 9582665648) T PROTEIN (test code = 8.1 g/dL 6.3-8.2 1390684884) ALBUMIN (test code = 4.6 g/dL 3.5-5 5510209084) ALK PHOS (test code = 73 U/L 34-122 6310735575) ALTv (test code = 22 U/L 5-35 1742-6) AST(SGOT) (test code = 24 U/L 13-40 2528857178) eGFR Calculation mL/min/1.73m2 (Non-) (test code = 6440093605) eGFR Calculation mL/min/1.73m2 () (test code = 8858598574) PARTH (test code = PARTH) Association of Glomerular Filtration Rate (GFR) and Staging of Kidney Disease* + --+ --+ ------+| GFR (mL/min/1.73 m2) ?| With Kidney Damage ?| ?Without Kidney Damage+ --------+ --------+ +| ?>90 ?| ?Stage one ?| ? Normal ?+ ---+ ---+ -------+| ?60-89 ?| ?Stage two ?| ? Decreased GFR ? + --+ --+ ------+| ?30-59 ?| ?Stage three ?| ? Stage three ? + --+ --+ ------+| ?15-29 ?| ?Stage four ? | ? Stage four ?+ ---+ ---+ -------+| ?<15 (or dialysis) ? ?| ?Stage five ? | ? Stage five ?+ ---+ ---+ -------+ *Each stage assumes the associated GFR level has been in effect for at least three months. ?Stages 1 to 5, with or without kidney disease, indicate chronic kidney disease. Notes: Determination of stages one and two (with eGFR >59mL/min/1.73 m2) requires estimation of kidney damage for at least three months as defined by structural or functional abnormalities of the kidney, manifested by either:Pathological abnormalities or Markers of kidney damage (including abnormalities in the composition of the blood or urine or abnormalities in imaging tests). Lab Interpretation Abnormal (test code = 65689-1) [facility] WITH [id number] 18:45:00 Test Item Value Reference Range Interpretation Comments WBC (test code = See_Comment [Automated message] 6690-2) The system [employer] generated this result transmitted ref erence range: 4.30 - 1 1.10 10*3/?L. The re ference range was not u sed to interpret this result as normal/abnor mal. RBC (test code = See_Comment [Automated message] 789-8) The system [employer] generated this result transmitted ref erence range: 3.93 - 5 .25 10*6/?L. The re ference range was not u sed to interpret this result as normal/abnor mal. HGB (test code = 13.8 g/dL 11.6-15 718-7) HCT (test code = 42.1 % 35.7-45.2 4544-3) MCV (test code = 90.5 fL 80.6-95.5 787-2) MCH (test code = 29.7 pg 25.9-32.8 785-6) MCHC (test code = 32.8 g/dL 31.6-35.1 786-4) RDW-SD (test code 45.8 fL 39-49.9 = 08415-1) RDW-CV (test code 13.8 % 12-15.5 = 788-0) PLT (test code = See_Comment [Automated message] 777-3) The system whic h generated this result transmitted ref erence range: 166 - 35 8 10*3/?L. The re ference range was not u sed to interpret this result as normal/abnor mal. MPV (test code = 10.2 fL 9.5-12.9 07122-6) NRBC/100 WBC (test See_Comment [Automat ed message] code = 9302895532) The syste m which generated this result transmitted ref erence range: 0.0 - 10 .0 /100 WBCs. The refer ence range was not u sed to interpret this result as normal/abnor mal. NRBC x10^3 (test <0.01 See_Comment [Automated message] code = 6103322469) The syste m which generated this result transmitted ref erence range: 10*3/?L. The reference range was not used to interpr et this result as normal/abnormal . GRAN MAT (NEUT) % 62.1 % (test code = 770-8) IMM GRAN % (test 0.40 % code = 2553279954) LYMPH % (test code 30.1 % = 736-9) MONO % (test code 5.9 % = 5905-5) EOS % (test code = 1.1 % 713-8) BASO % (test code 0.4 % = 706-2) GRAN MAT 6.02 10*3/uL 1.88-7.09 x10^3(ANC) (test code = 7102519847) IMM GRAN x10^3 0.04 10*3/uL 0-0.06 (test code = 2314748805) LYMPH x10^3 (test 2.92 10*3/uL 1.32-3.29 code = 731-0) MONO x10^3 (test 0.57 10*3/uL 0.33-0.92 code = 742-7) EOS x10^3 (test 0.11 10*3/uL 0.03-0.39 code = 711-2) BASO x10^3 (test 0.04 10*3/uL 0.01-0.07 code = 704-7) [facility] [id number] 18:15:00 Test Item Value Reference Range Interpretation Comments POCT PREG (test code = 1605) negative On board controls acceptable with present C Line (test code = 3574) POCT PREG LOT # (test code = 3575) [id number] POCT PREG TEST DATE (test 2021-03-16 code = 3576) Lab Interpretation (test code = Normal 90144-6) [facility] *OW*2018-12-04 15:44:54 CLINICAL HISTORY: Upper abdominal pain.LOCATION: D4.FINDINGS: [...] within normal limits.IMPRESSION:1. No abnormalities are identified .BRAIN NATRIURETIC PROTEIN OW2018-12-04 12:28:00 Test Item Value Reference Range Interpretation Comments BNP (test code = OBNP) <15 pg/mL [...] Comments WBC (test code = WBC) 8.1 10\\S\\3/uL 4.5-11.0 RBC (test code = RBC) 4.52 10\\S\\6/uL 4.30-5.70 HGB (test code = HBG) 13.4 g/dL 12.0-15.5 HCT (test code = HCT) 42.9 % 35.0-44.0 MCV (test code = MCV) 94.9 fL 81.0-99.0 MCH (test code = MCH) 29.6 pg 27.0-31.0 MCHC (test code = MCHC) 31.2 g/dL 32.0-36.0 L RDW (test code = RDW) 13.9 % 11.5-14.5 PLT (test code = PLT) 333 10\\S\\3/uL 130-400 MPV (test code = OMPV) 8.1 fL 6.2-10.2 NEUTROP # (test code = NE#) 5.2 10\\S\\3/uL 1.6-8.0 LYMPH # (test code = LY#) 2.1 10\\S\\3/uL 1.1-3.5 MID # (test code = GMID#) 0.8 10\\S\\3/uL 0.0-1.1 GRA % (test code = GRA%) [...] 05:31:13CT abdomen and pelvis with contrastLocation Code: C27LFXAREYL HISTORY: [id number]: Lower abdominal pain COMPARISON: NoneTechnique: Helical CT [...] Comments WBC (test code = WBC) 8.7 10\\S\\3/uL 4.5-11.0 RBC (test code = RBC) 4.35 10\\S\\6/uL 4.30-5.70 HGB (test code = HBG) 14.3 g/dL 12.0-15.5 HCT (test code = HCT) 39.9 % 35.0-44.0 MCV (test code = MCV) 91.8 fL 81.0-99.0 MCH (test code = MCH) 32.9 pg 27.0-31.0 H MCHC (test code = MCHC) 35.8 g/dL 32.0-36.0 RDW (test code = RDW) 13.5 % 11.5-14.5 PLT (test code = PLT) 294 10\\S\\3/uL 130-400 MPV (test code = OMPV) 8.6 fL 6.2-10.2 NEUTROP # (test code = NE#) 5.2 10\\S\\3/uL 1.6-8.0 LYMPH # (test code = LY#) 2.7 10\\S\\3/uL 1.1-3.5 MID # (test code = GMID#) 0.8 10\\S\\3/uL 0.0-1.1 GRA % (test code = GRA%) 60.0 % 35.0-73.0 LYMPH % (test code = GLY%) 31.3 % 20.0-55.0 MID % (test code = GMID%) 8.7 % 0.0-10.0 XR CHEST 2 VIEW *OW*2018-10-12 07:25:[id number]: XR CHEST 2 VIEW *OW*HISTORY: [id number]: CoughCOMPARISON: 08/08/18INDINGS: The lungs are clear. No pleural effusion or pneumothorax. The cardiacsilhouette is within normal limits. No acute osseous abnormalities.IMPRESSION:No acute cardiopulmonary disease.CBC (INCLUDES AUTOMATED DIFFERENTIAL) *2018-10-12 06:46:00 Test Item Value Reference Range Interpretation Comments WBC (test code = WBC) 9.0 10\\S\\3/uL 4.5-11.0 RBC (test code = RBC) 4.03 10\\S\\6/uL 4.30-5.70 L HGB (test code = HBG) 12.9 g/dL 12.0-15.5 HCT (test code = HCT) 37.6 % 35.0-44.0 MCV (test code = MCV) 93.2 fL 81.0-99.0 MCH (test code = MCH) 32.0 pg 27.0-31.0 H MCHC (test code = MCHC) 34.3 g/dL 32.0-36.0 RDW (test code = RDW) 13.9 % 11.5-14.5 PLT (test code = PLT) 177 10\\S\\3/uL 130-400 MPV (test code = OMPV) 8.4 fL 6.2-10.2 NEUTROP # (test code = NE#) 3.6 10\\S\\3/uL 1.6-8.0 LYMPH # (test code = LY#) 4.5 10\\S\\3/uL 1.1-3.5 H MID # (test code = GMID#) 0.9 10\\S\\3/uL 0.0-1.1 GRA % (test code = GRA%) 39.9 % 35.0-73.0 LYMPH % (test code = GLY%) 49.8 % 20.0-55.0 MID % (test code = GMID%) 10.3 % 0.0-10.0 H THROAT [id number] 07:45:00 Test Item Value Reference Range Interpretation [...] Comments WBC (test code = WBC) 8.6 10\\S\\3/uL 4.5-11.0 RBC (test code = RBC) 4.54 10\\S\\6/uL 4.30-5.70 HGB (test code = HBG) 14.4 g/dL 12.0-15.5 HCT (test code = HCT) 41.6 % 35.0-44.0 MCV (test code = MCV) 91.6 fL 81.0-99.0 MCH (test code = MCH) 31.7 pg 27.0-31.0 H MCHC (test code = MCHC) 34.6 g/dL 32.0-36.0 RDW (test code = RDW) 13.4 % 11.5-14.5 PLT (test code = PLT) 281 10\\S\\3/uL 130-400 MPV (test code = OMPV) 8.1 fL 6.2-10.2 NEUTROP # (test code = NE#) 5.5 10\\S\\3/uL 1.6-8.0 LYMPH # (test code = LY#) 2.4 10\\S\\3/uL 1.1-3.5 MID # (test code = GMID#) 0.7 10\\S\\3/uL 0.0-1.1 GRA % (test code = GRA%) [...] 14:39:21PA and lateral chest, 2 viewsLocation code: [id number] HISTORY: Chest painCOMPARISON: NoneCOMMENTS:The lungs are clear and well inflated. The costophrenic angles aresharp. The cardiomediastinal silhouette is unremarkable. The bones are intact.IMPRESSION: No acute abnormality"
[2021-07-10] MEDS ORDERED: ONDANSETRON 4 MG/2 ML VIAL ONE (10:33)
[2021-07-10] MEDS ORDERED: MORPHINE 2 MG/ML SYR ONE (10:33)
[2021-07-10 10:36] LABS: Absolute Lymphocytes (CBC) 1.7 K/uL (0.7-4.9); Basophils % 0.6 % (0-1.3); Hematocrit 41.7 % (36.0-45.0); Lymphocytes % 28.9 % (15.3-44.8); RBC Red Blood Cell Count 4.44 M/uL (3.86-4.86)
[2021-07-10 10:43] LABS: Urine Blood Negative (Negative); Urine Glucose Negative (Negative); Urine Protein Negative (Negative); Urine Specific Gravity 1.015 (1.005-1.030)
[2021-07-10 10:58] LABS: ALT/SGPT 15 U/L (12-78); AST/SGOT 10 U/L (15-37); Albumin 3.8 g/dL (3.4-5.0); Alkaline Phosphatase 58 U/L (45-117); BUN Blood Urea Nitrogen 10 mg/dL (7-18); Bicarbonate 24 mmol/L (21-32); Bilirubin Direct 0.1 mg/dL (0-0.2); Bilirubin Total 0.6 mg/dL (0.2-1.0); Glucose Level 107 mg/dL (74-106); Lipase 88 U/L (73-393); Potassium 3.8 mmol/L (3.5-5.1); Protein, Total 7.6 g/dL (6.4-8.2); Sodium Level 140 mmol/L (136-145)
[2021-07-10 11:03] LABS: Urine Specific Gravity/Preg 1.015 (1.005-1.030)
[2021-07-10] MEDS ORDERED: METHYLPREDNISOLONE 125 MG INJ ONE (11:05)
[2021-07-10] MEDS ORDERED: FAMOTIDINE 20 MG/2 ML VIAL IV ONE (11:06)
[2021-07-10] MEDS ORDERED: DIPHENHYDRAMINE 50 MG/ML VIAL ONE (11:06)
--- NOTE | 2021-07-10 11:54 | RAD REPORT ---
EXAM DESCRIPTION: CT - Abdomen Pelvis W Contrast - 07/10/2021 11:36 am CLINICAL HISTORY: left flank pain COMPARISON: Abdomen Pelvis W Contrast dated 11/12/2020; Abdomen Pelvis W Contrast dated 01/29/2020 TECHNIQUE: Biphasic, helical CT imaging of the abdomen and pelvis was performed following 100 ml non -ionic IV contrast. No oral contrast administered. All CT scans are performed using dose optimization technique as appropriate and may include automated exposure control or mA/KV adjustment according to patient size. FINDINGS: No suspicious findings in the lung bases. The liver, spleen, and pancreas show no suspicious findings. Gallbladder and biliary tree are also wi thout suspicious finding. Symmetric renal function is seen with no hydronephrosis or suspicious renal mass. No pyelonephritis o r acute parenchymal process. No bladder abnormalities. No adrenal abnormalities. No acute uterine finding. No right ovary or right adnexal suspicious finding noted. Complex cystic ma ss in the lateral and posterior left adnexae is again noted. No wall thickening, edema or enhancement seen. This cluster of cystic masses up to 6 cm is suspected to be a chronic left hydrosalpinx. This is larger than the most recent CT study of October 2020. No findings to suspect pyosalpinx. No dilated bowel loops or bowel wall thickening. No appendicitis finding. Physiologic quantity of kristi e fluid in the cul de sac. No free air, pneumatosis or inflammatory stranding. No bulky lymphadenopa thy, omental thickening or soft tissue mass. No suspicious bony findings. IMPRESSION: Left adnexal cystic mass complex is present measuring larger than the October 2020 study. This is favored to be an enlarging, chronic hydrosalpinx rather than multiple ovarian cystic masses. Hummel of the suspected hydrosalpinx do not show enhancement, edema or other findings that would eleva te concern for pyosalpinx. No other significant or suspicious findings.
--- NOTE | 2021-07-10 13:41 | RAD REPORT ---
EXAM DESCRIPTION: US - Pelvis Complete - 07/10/2021 1:01 pm CLINICAL HISTORY: FU MAMMO COMPARISON: Transvaginal Study Probe dated 01/29/2020; Abdomen Pelvis W Contrast dated 07/10/2021; Transvaginal Study Probe dated 07/10/2021 TECHNIQUE: Transabdominal and endovaginal sonography studies were performed. Findings from each stud y are combined into a single report. FINDINGS: Uterus is normal in size. Endometrial stripe is 10 mm with no focal endometrial abnormalit y. In the anterior uterus a 12 millimeter hypoechoic focus is present believed to be an incidental fi broid. A 19 millimeter oval hypoechoic focus is present in the posterior wall also believed to be an incidental intramural fibroid. Right ovary measures 2.1 x 1.4 x 1.5 cm. No dominant solid or cystic right ovarian or right adnexal a bnormality. As noted on the CT study, a large cystic mass is present filling the left adnexum. Dominant component is 7.5 cm in size. This is an anechoic cyst. A complex 3.5 centimeter cystic component is seen adjac ent. Simple and complex cystic component show no wall thickening. This cystic mass complex shows a tu bular contour. Collective findings remain favorable for left hydrosalpinx rather than ovarian cystic mass. Normal ovarian tissue is difficult to identified. IMPRESSION: Left adnexal cystic mass complex as detailed. Collective CT and ultrasound findings fav or a large hydrosalpinx rather than complex ovarian cystic mass. There is no wall thickening, edema or other findings to elevate concern for pyosalpinx. Normal size uterus shows 2 small intramural fibroids with no other uterine significant finding. No right ovarian or right adnexal abnormality.
--- NOTE | 2021-07-10 13:56 | ER ---
Nurse's Notes [facility] Name: Serenity Collins Age: 40 yrs Sex: Female : 1980 Arrival Date: 07/10/2021 Time: 10:07 Bed 5 Private MD: Diagnosis: Pelvic and perineal pain;Dysuria Presentation: 07/10 10:16 Chief complaint: Patient states: L flank/L abd pain since 0330 am. Had diarrhea for 2 ll1 days before this started. Has to urinate frequently and states her urine looks cloudy. + nausea. Coronavirus screen: Vaccine status: Patient reports being unvaccinated. Client denies travel out of the [place] in the last 14 days. diarrhea, nausea, vomiting. Client presents with at least one sign or symptom that may indicate coronavirus-19. Standard/surgical mask placed on the client. Ebola Screen: Patient denies travel to an Ebola-affected area in the 21 days before illness onset. Initial Sepsis Screen: Does the patient meet any 2 criteria? HR > 90 bpm. No. Patient's initial sepsis screen is negative. Does the patient have a suspected source of infection? Yes: Acute abdominal pain. Risk Assessment: Do you want to hurt yourself or someone else? Patient reports no desire to harm self or others. Onset of symptoms was July 08, 2021. 10:16 Method Of Arrival: Ambulatory 1 10:16 Acuity: MARY 3 ll1 ADOLESCENT PSYCHIATRIST: 14:20 0 6 Historical: - Allergies: 10:19 JOE; ll1 10:19 Tylenol-Codeine #3; ll1 10:19 SHELLFISH; ll1 - PMHx: 10:19 Anxiety; Bipolar disorder; ocd; PTSD; Rheumatoid Arthritis; Depressive disorder; ll1 - PSHx: 10:19 None; ll1 - Immunization history:: Client reports having NOT received the Covid vaccine. - Social history:: Smoking status: Patient reports the use of cigarette tobacco products, denies chronic smoking, but will smoke occasionally, Patient uses street drugs, marijuana. Screenin:31 Abuse screen: Denies threats or abuse. Nutritional screening: No deficits noted. 6 Tuberculosis screening: No symptoms or risk factors identified. Fall Risk None identified. Assessment: 10:31 General: Appears in no apparent distress. Behavior is calm, cooperative. Pain: jh6 Complains of pain in suprapubic area and left lower quadrant Pain currently is 10 out of 10 on a pain scale. Quality of pain is described as shooting, Pain began 1 day ago. Is continuous, Alleviated by nothing. Aggravated by increased activity, repositioning, weight bearing. GI: Bowel sounds present X 4 quads. Abdomen is tender to palpation in left lower quadrant. : Reports urinary frequency. 11:46 Reassessment: Patient states symptoms have improved. Pain: Complains of pain in left jh6 lower quadrant Pain currently is 7 out of 10 on a pain scale. 13:30 Reassessment: Patient and/or family updated on plan of care and expected duration. Pain jh6 level reassessed. Patient states symptoms have improved. 14:17 Pain: Complains of pain in left lower quadrant. 6 Vital Signs: 10:16 BP 144 / 102; Pulse 108; Resp 16; Temp 98.7; Pulse Ox 100% ; Weight 54.43 kg; Height 5 ll1 ft. 2 in. (157.48 cm); Pain 10/10; 11:10 BP 116 / 84; Pulse 58; Resp 17; Pulse Ox 100% on R/A; tw2 11:48 BP 114 / 66; Pulse 63; Resp 17; Temp 97.8; Pulse Ox 100% ; Pain 7/10; jh6 13:30 BP 116 / 72; Pulse 66; Resp 17; Temp 97.8; Pulse Ox 100% ; Pain 3/10; jh6 10:16 Body Mass Index 21.95 (54.43 kg, 157.48 cm) 1 ED Course: 10:07 Patient arrived in ED. mr 10:10 Dimitry Hillman PA is PHCP. jmm 10:10 Ramu Choi MD is Attending Physician. jmm 10:16 Arm band placed on Patient placed in an exam room, on a stretcher. ll1 10:19 Triage completed. ll1 10:21 Shea Courtney, YOHAN is Primary Nurse. jh6 10:30 Bed in low position. Call light in reach. jh6 10:30 Inserted saline lock: 20 gauge in right antecubital area, using aseptic technique. jh6 10:31 Initial lab(s) drawn, by ED staff, sent to lab. jh6 10:42 Awaiting radiology results. jh6 10:43 Urine Dipstick-Ancillary Sent. jh6 11:36 CT Abd/Pelvis - IV Contrast Only In Process Unspecified. EDMS 11:48 Awaiting radiology results. jh6 12:27 Patient taken to ultrasound. jh6 12:32 Transvaginal Study Probe In Process Unspecified. EDMS 13:02 Pelvis Complete In Process Unspecified. EDMS 13:30 No apparent distress. jh6 14:10 No provider procedures requiring assistance completed. IV discontinued, intact, jh6 bleeding controlled, No redness/swelling at site. Pressure dressing applied. Administered Medications: 10:43 Drug: morphine 2 mg Route: IVP; Site: right antecubital; jh6 11:21 Follow up: Response: No adverse reaction; Pain is decreased; RASS: Alert and Calm (0) tw2 11:56 Follow up: Response: No adverse reaction; Pain is decreased jh6 10:43 Drug: Zofran (Ondansetron) 4 mg Route: IVP; Site: right antecubital; jh6 11:22 Follow up: Response: No adverse reaction tw2 11:56 Follow up: Response: No adverse reaction; Pain is decreased jh6 11:10 Drug: SOLU-Medrol (methylPrednisoLONE) 125 mg Route: IVP; Site: right antecubital; tw2 13:30 Follow up: Response: No adverse reaction jh6 11:13 Drug: diphenhydrAMINE 12.5 mg Route: IVP; Site: right antecubital; tw2 13:30 Follow up: Response: No adverse reaction 6 11:15 Drug: Pepcid (famotidine) 20 mg Route: IVP; Site: right antecubital; tw2 13:30 Follow up: Response: No adverse reaction [facility] Outcome: 13:55 Discharge ordered by . mary kate 14:19 Discharged to home ambulatory. 6 14:19 Condition: improved 14:19 Discharge instructions given to patient, Instructed on discharge instructions, follow up and referral plans. Demonstrated understanding of instructions, follow-up care, medications, Prescriptions given X 2. 14:26 Patient left the ED. 6 Signatures: Dispatcher [employer] EDMS Dimitry Hillman PA PA jmm Rivera, Mary mr Zhane Hernandez RN RN tw2 Chris Abbott RN RN 1 Hastedt, Shea, RN RN jh6
--- NOTE | 2021-07-10 13:56 | EDPHYS ---
Physician Documentation [facility] Name: Serenity Collins Age: 40 yrs Sex: Female : 1980 Arrival Date: 07/10/2021 Time: 10:07 Bed 5 Private MD: ED Physician Ramu Choi HPI: 07/10 10:18 This 40 yrs old Female presents to ER via Ambulatory with complaints of Abdominal Pain, jmm Nausea. 10:18 The patient presents with abdominal pain in the lower abdomen. Onset: The jmm symptoms/episode began/occurred gradually. The symptoms do not radiate. Associated signs and symptoms: Pertinent negatives: fever, vomiting. The symptoms are described as achy. Modifying factors: The symptoms are alleviated by nothing, the symptoms are aggravated by nothing. This is a 40-year-old female with a history of anxiety, bipolar, PTSD, rheumatoid arthritis, depression the presents emerged department with complaints of left flank pain left lower abdominal pain symptoms been worsening throughout the week. Denies fever. Patient states having some dysuria as well. ACQUISITIONS LIBRARIAN: 14:20 0 jh6 Historical: - Allergies: 10:19 JOE; ll1 10:19 Tylenol-Codeine #3; ll1 10:19 SHELLFISH; ll1 - PMHx: 10:19 Anxiety; Bipolar disorder; ocd; PTSD; Rheumatoid Arthritis; Depressive disorder; ll1 - PSHx: 10:19 None; ll1 - Immunization history:: Client reports having NOT received the Covid vaccine. - Social history:: Smoking status: Patient reports the use of cigarette tobacco products, denies chronic smoking, but will smoke occasionally, Patient uses street drugs, marijuana. ROS: 10:18 Constitutional: Negative for fever, chills, and weight loss, Cardiovascular: Negative jmm for chest pain, palpitations, and edema, Respiratory: Negative for shortness of breath, cough, wheezing, and pleuritic chest pain. 10:18 Abdomen/GI: Positive for abdominal pain. 10:18 All other systems are negative. Exam: 10:18 Constitutional: This is a well developed, well nourished patient who is awake, alert, jmm and in no acute distress. Head/Face: atraumatic. Eyes: EOMI, no conjunctival erythema appreciated ENT: Moist Mucus Membranes Neck: Trachea midline, Supple Chest/axilla: Normal chest wall appearance and motion. Cardiovascular: Regular rate and rhythm. No edema appreciated Respiratory: Normal respirations, no respiratory distress appreciated 10:18 Back: Normal ROM Skin: General appearance color normal MS/ Extremity: Moves all extremities, no obvious deformities appreciated, no edema noted to the lower extremities Neuro: Awake and alert, normal gait Psych: Behavior is normal, Mood is normal, Patient is cooperative and pleasant 10:18 Abdomen/GI: Inspection: abdomen appears normal, Bowel sounds: normal, Palpation: soft, mild abdominal tenderness, in the suprapubic area and left lower quadrant. Vital Signs: 10:16 BP 144 / 102; Pulse 108; Resp 16; Temp 98.7; Pulse Ox 100% ; Weight 54.43 kg; Height 5 ll1 ft. 2 in. (157.48 cm); Pain 10/10; 11:10 BP 116 / 84; Pulse 58; Resp 17; Pulse Ox 100% on R/A; tw2 11:48 BP 114 / 66; Pulse 63; Resp 17; Temp 97.8; Pulse Ox 100% ; Pain 7/10; jh6 13:30 BP 116 / 72; Pulse 66; Resp 17; Temp 97.8; Pulse Ox 100% ; Pain 3/10; jh6 10:16 Body Mass Index 21.95 (54.43 kg, 157.48 cm) ll1 MDM: 10:18 Patient medically screened. [facility] 13:54 Data reviewed: vital signs, nurses notes. Counseling: I had a detailed discussion with mary kate the patient and/or guardian regarding: the historical points, exam findings, and any diagnostic results supporting the discharge/admit diagnosis, lab results, radiology results, the need for outpatient follow up, to return to the emergency department if symptoms worsen or persist or if there are any questions or concerns that arise at home. ED course: Patient and nontoxic in appearance in the ED. Patient advised to follow-up with her ACQUISITIONS LIBRARIAN for further evaluation otherwise given strict return precautions. Patient understood and agrees plan of care.. 07/10 10:20 Order name: Basic Metabolic Panel; Complete Time: 11:04 [facility] 07/10 10:20 Order name: CBC with Diff; Complete Time: 10:53 [facility] 07/10 10:20 Order name: Hepatic Function; Complete Time: 11: [facility] 07/10 10:20 Order name: Lipase; Complete Time: 11:04 [facility] 07/10 10:42 Order name: Urine Dipstick-Ancillary; Complete Time: 10:53 [facility] 07/10 10:48 Order name: Urine --Ancillary (enter results); Complete Time: 11:04 [facility] 07/10 10:20 Order name: CT Abd/Pelvis - IV Contrast Only; Complete Time: 12:11 [facility] 07/10 12:32 Order name: Transvaginal Study Probe [facility] 07/10 13:01 Order name: Pelvis Complete; Complete Time: 13:50 [facility] 07/10 10:20 Order name: IV Saline Lock; Complete Time: 11:34 [facility] 07/10 10:20 Order name: Labs collected and sent; Complete Time: 11:34 [facility] 07/10 10:20 Order name: Urine Dipstick-Ancillary (obtain specimen); Complete Time: 10:43 [facility] 07/10 10:20 Order name: Urine Test (obtain specimen); Complete Time: 10:43 [facility] Administered Medications: 10:43 Drug: morphine 2 mg Route: IVP; Site: right antecubital; jh6 11:21 Follow up: Response: No adverse reaction; Pain is decreased; RASS: Alert and Calm (0) tw2 11:56 Follow up: Response: No adverse reaction; Pain is decreased jh6 10:43 Drug: Zofran (Ondansetron) 4 mg Route: IVP; Site: right antecubital; jh6 11:22 Follow up: Response: No adverse reaction tw2 11:56 Follow up: Response: No adverse reaction; Pain is decreased jh6 11:10 Drug: SOLU-Medrol (methylPrednisoLONE) 125 mg Route: IVP; Site: right antecubital; tw2 13:30 Follow up: Response: No adverse reaction jh6 11:13 Drug: diphenhydrAMINE 12.5 mg Route: IVP; Site: right antecubital; tw2 13:30 Follow up: Response: No adverse reaction jh6 11:15 Drug: Pepcid (famotidine) 20 mg Route: IVP; Site: right antecubital; tw2 13:30 Follow up: Response: No adverse reaction 6 Disposition: 17:33 Co-signature as Attending Physician, Ramu Choi MD I agree with the assessment and rn plan of care. Attestation: The patient's history, exam findings, diagnostics, and a summary of any interventions or procedures was reviewed in detail with Dimitry SIERRA. Disposition Summary: 07/10/21 13:55 Discharge Ordered Location: Home [facility] Condition: Stable [facility] Diagnosis - Pelvic and perineal pain jmm - Dysuria [facility] Followup: [facility] - With: Private Physician - When: 2 - 3 days - Reason: If symptoms return, Recheck today's complaints, Continuance of care, Re-evaluation by your physician Discharge Instructions: - Discharge Summary Sheet jm - Dysuria jmm - Pelvic Pain, Female [facility] Forms: - Work release form jmm - Medication Reconciliation Form [facility] - Thank You Letter [facility] - Antibiotic Education [facility] - Prescription Opioid Use [facility] Prescriptions: - Bactrim DS 800-160 mg Oral Tablet - take 1 tablet by ORAL route every 12 hours for 10 days; 20 tablet; Refills: 0, [facility] Product Selection Permitted - orphenadrine citrate 100 mg Oral Tablet Sustained Release - take 1 tablet by ORAL route 2 times per day As needed; 20 tablet; Refills: 0, [facility] Product Selection Permitted Signatures: Dispatcher [employer] EDDimitry Stock PA PA Ramu Bradley MD MD rn Wise, Tara RN RN tw2 Chris Abbott RN RN 1 Shea Courtney, RN RN jh6 Corrections: (The following items were deleted from the chart) 12:32 12:15 Pelvis Complete+[email or web address] ordered. EDTN EDMS
[2021-07-10 14:43] VITALS: O2SAT 100
[2021-07-10 14:47] VITALS: TEMP 97.8
[2021-07-10 14:49] VITALS: BP 116/72
--- NOTE | 2021-07-12 13:24 | RAD REPORT ---
EXAM DESCRIPTION: US - Transvaginal Study Probe - 07/10/2021 1:14 pm CLINICAL HISTORY: pelvic pain COMPARISON: Pelvis Complete dated 07/10/2021 TECHNIQUE: Transabdominal and endovaginal sonography was performed. Findings from both studies were and or perforated into a single report. FINDINGS: The uterus is normal in size. Endometrial stripe is 10 mm with no focal endometrial abnormality. In t he anterior uterus a 12 millimeter hypoechoic focus is present believed to be an incidental fibroid. A 19 mm oval hypoechoic focus is present in the posterior wall also believed to be an incidental intr amural fibroid. The right ovary measures 2.1 x 1.4 x 1.5 cm. No dominant solid or cystic right ovarian or right adnex al abnormality. As noted on the CT study, a large cystic mass is present filling the left adnexa. Dominant component is 7.5 cm in size. This is an anechoic cyst. A complex 3.5 cm cystic component is seen adjacent. Simp le and complex cystic component show no wall thickening. This cystic mass complex shows a tubular con tour. Collective findings remain favorable for left hydrosalpinx rather than ovarian cystic mass. Nor mal ovarian tissue is difficult to identified. IMPRESSION: 1. Left adnexal cystic mass complex as detailed. Collective CT and ultrasound findings f avor a large hydrosalpinx rather than complex ovarian cystic mass. 2. There is no wall thickening, edema or other findings to elevate concern for pyosalpinx. 3. Normal size uterus shows two small intramural fibroids with no other uterine significant finding. 4. No right ovarian or right adnexal abnormality.
== END 2021-07-10 14:26 | disposition home or self-care (01) ==
LOC: ER 10:02
DX: R30.0 Dysuria (principal); F17.210 Nicotine dependence, cigarettes, uncomplicated; Z88.5 Allergy status to narcotic agent; Z88.6 Allergy status to analgesic agent; Z91.013 Allergy to seafood; Z91.018 Allergy to other foods
CPT/HCPCS: 36415; 74177; 76830; 76856; 80048; 80076; 81003; 81025; 83690; 85025; 96374; 96375; 99284; J1200; J2270; J2405; J2930; Q9967

== ENCOUNTER 2021-08-13 15:16 | Emergency (ER) | payer SELFPAY ==
--- OUTSIDE RECORDS SUMMARY | 2021-08-13 15:19 | XMS REPORT | Continuity of Care Document ---
:1980 Author Organization [facility] t Address [address] [place] [address] Care Team Providers Name Role Phone Pcp, Does Not Have A Primary Care Physician Doctor Unassigned, Name Attending Clinician Unavailable Pcp, Does Not Have A Attending Clinician Jaleesa Koehler Attending Clinician JALEESA LIPSCOMB Attending Clinician Unavailable Leonid Attending Clinician Unavailable DR JEANNINE Attending Clinician [...] NO KNOWN Drug Active Univers ALLERGIE Class ity [facility] Social History Social Habit Start Date Stop Date Quantity Comments Source Exposure to Not sure [facility] SARS-CoV-2 (event) Medica l Branch Sex Assigned At [birth year] [facility] 00:00:00 00:00:00 Medical Branch Smoking Status Start Date Stop Date Source Unknown if ever smoked [facility] y [facility] Medications Ordered Filled Start Stop Current Ordering Indication Dosage Frequency Signature Comments Components Source Medication Medication Date Date Medication? Clinician (SIG) Name Name acetaminoph 2020- No 1000mg 1,000 mg, Univers en 02-21 Oral, ity of (TYLENOL) 19:15: 18:18 ONCE, [place]00 dose, Wed Medical 1,000 mg 02/22/20 at Branch 1415, ANTOINETTE Vital Signs Vital Name Observation Time Observation Value Comments Source Systolic blood 2020-02-22 18:00:00 128 mm[Hg] Univer [facility] Diastolic blood 2020-02-22 18:00:00 74 mm[Hg] [facility] Heart rate 2020-02-22 18:00:00 75 /min Universi ty [facility] Respiratory rate 2020-02-22 18:00:00 20 /min [facility] O[facility] saturation in 2020-02-22 18:00:00 97 /min University of Arterial blood by [facility] Pulse oximetry Branch Body temperature 2020-02-22 17:27:00 37 Xin [facility] Body height 2020-02-22 17:27:00 157.5 cm [facility] ty [facility] Body weight 2020-02-22 17:27:00 72.576 kg [facility] BMI 2020-02-22 17:27:00 29.26 kg/m2 [facility] Systolic blood 2020-02-22 18:00:00 128 mm[Hg] Univer [facility] Diastolic blood 2020-02-22 18:00:00 74 mm[Hg] Unive rs[facility] of [facility] Heart rate 2020-02-22 18:00:00 75 /min Universi ty [facility] Respiratory rate 2020-02-22 18:00:00 20 /min [facility] Oxygen saturation in 2020-02-22 18:00:00 97 /min University of Arterial blood by [facility] Pulse oximetry Branch Body temperature 2020-02-22 17:27:00 37 Xin [facility] Body height 2020-02-22 17:27:00 157.5 cm [facility] Body weight 2020-02-22 17:27:00 72.576 kg [facility] BMI 2020-02-22 17:27:00 29.26 kg/m2 [facility] Procedures Procedure Date / Time Performing Clinician Source Performed EXTERNAL PROVIDER 2021-07-15 06:01:00 Doctor Minh, No Univ [facility] RECORDS Name [facility] US PELVIS COMPLETE WITH 2020-02-22 19:23:20 [facility] TRANSVAGINAL [facility] COMP. METABOLIC PANEL 2020-02-22 18:23:00 Curt Lipscomb [facility] ([id number]) [facility] CBC WITH DIFFERENTIAL 2020-02-22 18:23:00 Curt Lipscomb [facility] URINALYSIS 2020-02-22 18:23:00 Curt Lipscomb Jaleesa [place] [facility] POCT TEST 2020-02-22 18:15:00 Curt Lipscomb [facility] CONSENT/REFUSAL FOR 2020-02-22 17:17:30 Doctor Minh, No [facility] DIAGNOSIS AND TREATMENT [facility] Encounters Start End Encounter Admission Attending Care Care Encounter Source Date/Time Date/Time Type Type Clinicians Facility Department ID 2021-07-15 2021-07-15 Orders Doctor KEYUR [id number] Univers 00:00:00 00:00:00 Only Unassigned, SARINA [id number] ity of [place] [facility] 4.2.7.2.686 Kai as [id number] [facility] 009 Branch 2021-07-02 2021-07-02 Telephone Pcp, CHLOE [id number] Univers 00:00:00 00:00:00 Patient NIR 350.1.13.10 i ty of Does [facility] 4.2.7.2.686 [place] A [id number] [facility] 199 Branch 2020-02-22 2020-02-22 Emergency Curt Lipscomb [id number] Univers 12:29:09 15:00:00 Jaleesa Cates 350.1.13.10 i ty of [place] 4.2.7.2.686 [facility] [id number] [address] 2020-02-22 2020-02-22 Emergency Curt Lipscomb [facility] [id number] 12:29:09 15:00:00 Jaleesa Cates 350.1.13.10 [place] 4.2.7.2.686 [place] [id number] [facility] 2020-02-22 2020-02-22 Emergency X Curt LIPSCOMB [facility] ERT [id number] Univers 12:29:09 12:29:09 [facility] 2020-01-30 2020-01-30 Outpatient Lezak_Keithyla MEHOP MEHOP [id number] [place] 08:36:00 08:36:00 [id number] [facility] 2020-01-28 2020-01-28 Outpatient Lezak_Keithyla MEHOP MEHOP 104 [id number] [place] 01:01:00 01:01:00 [id number] [facility] 2019-12-02 2019-12-02 Outpatient Lezak_Keithyla MEHOP MEHOP 104 [id number] [place] 11:44:00 11:44:00 [id number] [facility] 2019-01-07 2019-01-07 Outpatient E JEANNINE [facility] [id number] [place] 10:23:00 12:27:00 [facility] 2018-12-04 2018-12-04 Outpatient E CINDI [facility] [id number] [place] 10:20:00 15:57:00 [facility] 2018-11-11 2018-11-11 Outpatient E GILBERT [facility] [id number] [place] 04:05:00 06:00:00 [facility] 2018-10-12 2018-10-12 Outpatient E MAUREEN PAULINE [facility] [id number] [place] 06:24:00 08:08:00 Medica l Center 2018-09-30 2018-09-30 Outpatient E MING [facility] [id number] [place] 13:45:00 14:12:00 [facility] 2018-09-04 2018-09-04 Outpatient E MING [facility] [id number] [place] 17:32:00 18:30:00 [facility] 2018-08-19 2018-08-19 Outpatient E HANY WILL [facility] [id number] [place] 08:43:00 10:15:00 [facility] 2018-08-08 2018-08-08 Outpatient E TRISH, [facility] [id number] [place] 13:34:00 16:43:00 [facility] Results Test Description Test Test Results [...] is 3.5 mm. No free fluid in ejuvte-mo-tgv. Right ovary is 3.1 x 2.5 x [...] is 3.5 mm. No free fluid in piltdh-hl-uqc. Right ovary is 3.1 x 2.5 x [...] nts APPEARANCE (test code = Clear Clear 6996256885) COLOR (test code = 5380258359) Yellow Yellow PH (test code = 6299358383) 4.8-8.0 SP GRAVITY (test code = 1.003-1.030 4874255048) GLU U QUAL (test code = Normal Normal 3339434172) BLOOD (test code = 6015043228) 1+ Negative A KETONES (test code = 9447106999) Negative Negative PROTEIN (test code = 2887-8) Negative Negative UROBILIN (test code = Normal Normal 0684823080) BILIRUBIN (test code = Negative Negative 1949193973) NITRITE (test code = 3127505632) Negative Negative LEUK OMEGA (test code = Negative Negative 9131368893) RBC/HPF (test code = 6657128251) See_Comment H [Automated message] The system which ge nerated this result transmit saw reference range: 0 - 3 HP F. The reference range was not used to interpret th is result as normal/abnormal . WBC/HPF (test code = 5615845894) See_Comment [Automated message] The system which ge nerated this result transmit saw reference range: 0 - 5 HP F. The reference range was not used to interpret th is result as normal/abnormal . BACTERIA (test code = Few Negative A 2229851800) MUCOUS (test code = 9049463082) Moderate Negative LPF A SQ EPITH (test code = <1 HPF 6526510859) Lab Interpretation (test code = Abnormal 63008-5) [facility]. METABOLIC PANEL (77021)2020-02-22 18:51:00 Test Item Value Reference Range Interpretation Comments NA (test code = 139 mmol/L 135-145 8617684562) K (test code = 4.2 mmol/L 3.5-5 5235233959) CL (test code = 109 mmol/L 98-108 H 8872844438) CO2 TOTAL (test code = 21 mmol/L 23-31 L 7363824110) AGAP (test code = 2-16 1652212084) BUN (test code = 12 mg/dL 7-23 4955821362) GLUCOSE (test code = 101 mg/dL 70-110 8285949407) CREATININE (test code = 0.50 mg/dL 0.5-1.04 0836148706) TOTAL BILI (test code = 0.4 mg/dL 0.1-1.0 3237603454) CALCIUM (test code = 9.5 mg/dL 8.6-10.6 9623801850) T PROTEIN (test code = 8.1 g/dL 6.3-8.2 1326718018) ALBUMIN (test code = 4.6 g/dL 3.5-5 7566446182) ALK PHOS (test code = 73 U/L 34-122 9334647719) ALTv (test code = 22 U/L 5-35 1742-6) AST(SGOT) (test code = 24 U/L 13-40 0752403815) eGFR Calculation mL/min/1.73m2 (Non-) (test code = 6738556911) eGFR Calculation mL/min/1.73m2 () (test code = 3878386949) PARTH (test code = PARTH) Association of [...] tests). Lab Interpretation Abnormal (test code = 27126-8) [facility] WITH [id number] 18:45:00 Test Item Value Reference Range Interpretation Comments WBC (test code = See_Comment [Automated message] 6690-2) The system [employer] generated this result transmitted ref erence range: 4.30 - 1 1.10 10*3/?L. The re ference range was not u sed to interpret this result as normal/abnor mal. RBC (test code = See_Comment [Automated message] 789-8) The system [employer] generated this result transmitted ref erence range: [...] RDW-SD (test code 45.8 fL 39-49.9 = 93509-7) RDW-CV (test code 13.8 % 12-15.5 = 788-0) PLT (test code = See_Comment [Automated message] 777-3) The system [employer] generated this result transmitted ref erence range: 166 - 35 8 10*3/?L. The re ference range was not u sed to interpret this result as normal/abnor mal. MPV (test code = 10.2 fL 9.5-12.9 48173-5) NRBC/100 WBC (test See_Comment [Automat ed message] code = 2602689212) The syste m which generated this result transmitted ref erence range: 0.0 - 10 .0 /100 WBCs. The refer ence range was not u sed to interpret this result as normal/abnor mal. NRBC x10^3 (test <0.01 See_Comment [Automated message] code = 9081070791) The syste m which generated this result transmitted ref erence range: 10*3/?L. The reference range was not used to interpr et this result as normal/abnormal . GRAN MAT (NEUT) % 62.1 % (test code = 770-8) IMM GRAN % (test 0.40 % code = 6883554379) LYMPH % (test code 30.1 % = 736-9) MONO % (test code 5.9 % = 5905-5) EOS % (test code = 1.1 % 713-8) BASO % (test code 0.4 % = 706-2) GRAN MAT 6.02 10*3/uL 1.88-7.09 x10^3(ANC) (test code = 9815061079) IMM GRAN x10^3 0.04 10*3/uL 0-0.06 (test code = 2291615413) LYMPH x10^3 (test 2.92 10*3/uL 1.32-3.29 code = 731-0) MONO x10^3 (test 0.57 10*3/uL 0.33-0.92 code = 742-7) EOS x10^3 (test 0.11 10*3/uL 0.03-0.39 code = 711-2) BASO x10^3 (test 0.04 10*3/uL 0.01-0.07 code = 704-7) [id number]:15:00 Test Item Value Reference Range Interpretation Comments POCT PREG (test code = 1605) negative On board controls acceptable with present C Line (test code = 3574) POCT PREG LOT # (test code = 3575) [id number] POCT PREG TEST DATE (test 2021-03-16 code = 3576) Lab Interpretation (test code = Normal 07664-2) [facility] *OW*2018-12-04 15:44:54 CLINICAL HISTORY: Upper abdominal [...] 05:31:13CT abdomen and pelvis with contrastLocation Code: B36GGCMPVBI HISTORY: 86185361: Lower abdominal pain COMPARISON: NoneTechnique: Helical CT [...] % 0.0-10.0 XR CHEST 2 VIEW *OW*2018-10-12 07:25:99E27GACZ: XR CHEST 2 VIEW *OW*HISTORY: 47510240: CoughCOMPARISON: 08/08/18INDINGS: The lungs are clear. No [...] = GMID%) 10.3 % 0.0-10.0 H THROAT [id number] 07:45:00 Test Item Value Reference Range Interpretation [...] 14:39:21PA and lateral chest, 2 viewsLocation code: G0WGHDOSON HISTORY: Chest painCOMPARISON: NoneCOMMENTS:The lungs are clear and well inflated. The costophrenic angles aresharp. The cardiomediastinal silhouette is unremarkable. The bones are intact.IMPRESSION: No acute abnormality"
--- NOTE | 2021-08-14 00:54 | ER ---
Nurse's Notes [facility] Name: Serenity Collins Age: 41 yrs Sex: Female : 1980 Arrival Date: 08/13/2021 Time: 15:17 Bed Waiting Private MD: Diagnosis: Presentation: 08/13 17:12 Chief complaint: Patient states: Anxiety way worse than usual for 4 days. L chest ll1 tightness and L arm tightness for 1 day. Coronavirus screen: Vaccine status: Client denies travel out of the [place] in the last 14 days. At this time, the client does not indicate any symptoms associated with coronavirus-19. Ebola Screen: Patient denies travel to an Ebola-affected area in the 21 days before illness onset. Initial Sepsis Screen: Does the patient meet any 2 criteria? No. Patient's initial sepsis screen is negative. Does the patient have a suspected source of infection? No. Patient's initial sepsis screen is negative. Risk Assessment: Do you want to hurt yourself or someone else? Patient reports no desire to harm self or others. Onset of symptoms was August 10, 2021. 17:12 Method Of Arrival: Ambulatory ll1 17:12 Acuity: MARY 3 ll1 Historical: - Allergies: 17:14 JOE; ll1 17:14 SHELLFISH; ll1 17:14 Tylenol-Codeine #3; ll1 - PMHx: 17:14 Anxiety; Bipolar disorder; depressive disorder; ocd; PTSD; Rheumatoid Arthritis; ll1 - PSHx: 17:14 None; ll1 - Immunization history:: Client reports having NOT received the Covid vaccine. - Social history:: Smoking status: Patient reports the use of cigarette tobacco products, smokes one-half pack cigarettes per day. Vital Signs: 17:12 BP 152 / 109; Pulse 84; Resp 18; Temp 98.1; Pulse Ox 97% on R/A; Pain 8/10; ll1 ED Course: 15:17 Patient arrived in ED. am2 17:14 Triage completed. ll1 17:14 Arm band placed on. ll1 08/14 00:53 Patient's name was called from ER lobby. No response. Unable to locate patient. Will bb disposition as left without being seen by a provider. Administered Medications: No medications were administered Outcome: 00:53 Patient left the ED. bb Signatures: Felecia Antonio, RN RN bb Alisson Zayas am2 Chris Abbott RN RN ll1
[2021-08-14 01:03] VITALS: BP 152/109; TEMP 98.1; O2SAT 97
== END 2021-08-14 00:53 | disposition left against medical advice (07) ==
LOC: ER 15:16
DX: F41.9 Anxiety disorder, unspecified (principal); Z53.21 Procedure and treatment not carried out due to patient leaving prior to being seen by health care provider
CPT/HCPCS: 99281

== ENCOUNTER 2021-10-08 10:48 | Emergency (ER) | payer SELFPAY ==
--- OUTSIDE RECORDS SUMMARY | 2021-10-08 10:51 | XMS REPORT | Continuity of Care Document ---
:1980 Author Organization [facility] t Address [address] [place] [address] Care Team Providers Name Role Phone Pcp, [...] KNOWN Drug Active Univers ALLERGIE Class ity of S [facility] Social History Social Habit Start Date Stop Date Quantity Comments Source Exposure to Not sure [facility] SARS-CoV-2 (event) Medica Branch Sex Assigned At [birth year] [facility] 00:00:00 00:00:00 Medical Branch Smoking Status Start Date Stop Date Source Unknown if ever smoked [facility] y [facility] Medications Ordered Filled Start Stop Current Ordering [...] 2020-02-22 18:00:00 128 mm[Hg] Univer sity of [facility] Diastolic blood 2020-02-22 18:00:00 74 mm[Hg[facility] Heart rate 2020-02-22 18:00:00 75 /min Universi ty [facility] Respiratory rate 2020-02-22 18:00:00 20 /min [facility] O[facility] saturation in 2020-02-22 18:00:00 97 /min University of Arterial blood by [facility] Pulse oximetry Branch Body temperature 2020-02-22 17:27:00 37 [facility] Body height 2020-02-22 17:27:00 157.5 cm [facility] Body weight 2020-02-22 17:27:00 72.576 kg [facility] BMI 2020-02-22 17:27:00 29.26 kg/m2 [facility] Systolic blood 2020-02-22 18:00:00 128 mm[Hg] Univer sity of [facility] Diastolic blood 2020-02-22 18:00:00 74 mm[facility]Hg[facility] 2020-02-22 18:00:00 75 /min Universi ty [facility] Respiratory rate 2020-02-22 18:00:00 20 /min [facility] Oxygen saturation in 2020-02-22 18:00:00 97 /min University of Arterial blood by [facility] Pulse oximetry Branch Body temperature 2020-02-22 17:27:00 37 [facility] Body height 2020-02-22 17:27:00 157.5 cm [facility] Body weight 2020-02-22 17:27:00 72.576 kg [facility] BMI 2020-02-22 17:27:00 29.26 kg/m2 [facility] Procedures Procedure Date / Time Performing Clinician Source Performed EXTERNAL PROVIDER 2021-07-15 06:01:00 Doctor Minh, No Univ [facility] RECORDS Name [facility] US PELVIS COMPLETE WITH 2020-02-22 19:23:20 Curt Lipscomb [facility] TRANSVAGINAL [facility] COMP. METABOLIC PANEL 2020-02-22 18:23:00 Curt Lipscomb [facility] ([id number]) [facility] CBC WITH DIFFERENTIAL 2020-02-22 18:23:00 Curt Lipscomb [facility] URINALYSIS 2020-02-22 18:23:00 Curt Lipscomb Jaleesa Cheney o f [facility] POCT TEST 2020-02-22 18:15:00 Curt Lipscomb [facility] CONSENT/REFUSAL FOR 2020-02-22 17:17:30 Doctor Minh, No [facility] DIAGNOSIS AND TREATMENT [facility] Encounters Start End Encounter Admission Attending Care Care Encounter Source Date/Time Date/Time Type Type Clinicians Facility Department ID 2021-07-15 2021-07-15 Orders Doctor KEYUR [id number] Univers 00:00:00 00:00:00 Only Unassigned, SARINA [id number] ity of [place] [facility] 4.2.7.2.686 Kai as [id number] [facility] 009 Branch 2021-07-02 2021-07-02 Telephone Pcp, CHLOE [id number] Univers 00:00:00 00:00:00 Patient NIR 350.1.13.10 i ty of Does [facility] 4.2.7.2.686 [place] Have A [id number] [facility] 199 Branch 2020-02-22 2020-02-22 Emergency Curt Lipscomb [id number] Univers 12:29:09 15:00:00 Jaleesa Cates 350.1.13.10 i ty of [place] 4.2.7.2.686 [facility] [id number] [place] [id number] Branch 2020-02-22 2020-02-22 Emergency Curt Lipscomb [facility] [id number] 12:29:09 15:00:00 Jaleesa Cates 350.1.13.10 [place] 4.2.7.2.686 [place] [id number] [facility] 2020-02-22 2020-02-22 Emergency X Curt LIPSCOMB [facility] ERT [id number] Univers 12:29:09 12:29:09 [facility] 2020-01-30 2020-01-30 Outpatient Lezak_Cleopatra MEHOP MEHOP [id number] [place] 08:36:00 08:36:00 [id number] [facility] 2020-01-28 2020-01-28 Outpatient Lezak_Keithyla MEHOP MEHOP 104 [id number] [place] 01:01:00 01:01:00 [id number] [facility] 2019-12-02 2019-12-02 Outpatient Lezak_Keithyla MEHOP MEHOP 104 [id number] [place] 11:44:00 11:44:00 [id number] [facility] 2019-01-07 2019-01-07 Outpatient E JEANNINE [facility] [id number] [place] 10:23:00 12:27:00 PHYLICIA Medic al [place] 2018-12-04 2018-12-04 Outpatient E CINDI [facility] [id number] [place] 10:20:00 15:57:00 KEYUR Medica l [place] 2018-11-11 2018-11-11 Outpatient E GILBERT [facility] [id number] [place] 04:05:00 06:00:00 MARKELL Medica [facility] [place] 2018-10-12 2018-10-12 Outpatient E MAUREEN PAULINE [facility] [id number] [place] 06:24:00 08:08:00 Medica l Center 2018-09-30 2018-09-30 Outpatient E MING [facility] [id number] [place] 13:45:00 14:12:00 [facility] 2018-09-04 2018-09-04 Outpatient E MING [facility] [id number] [place] 17:32:00 18:30:00 [facility] 2018-08-19 2018-08-19 Outpatient E HANY WILL [facility] [id number] [place] 08:43:00 10:15:00 [facility] 2018-08-08 2018-08-08 Outpatient E TRISH, [facility] [id number] [place] 13:34:00 16:43:00 [facility] Results Test Description Test Test Results [...] is 3.5 mm. No free fluid in cnveue-ud-rxy. Right ovary is 3.1 x 2.5 x [...] is 3.5 mm. No free fluid in cufadr-se-cst. Right ovary is 3.1 x 2.5 x [...] nts APPEARANCE (test code = Clear Clear 4032266987) COLOR (test code = 1332461579) Yellow Yellow PH (test code = 5443361284) 4.8-8.0 SP GRAVITY (test code = 1.003-1.030 4419544940) GLU U QUAL (test code = Normal Normal 3349124122) BLOOD (test code = 3492157353) 1+ Negative A KETONES (test code = 0400213455) Negative Negative PROTEIN (test code = 2887-8) Negative Negative UROBILIN (test code = Normal Normal 8325992085) BILIRUBIN (test code = Negative Negative 7570423455) NITRITE (test code = 7673222672) Negative Negative LEUK OMEGA (test code = Negative Negative 3673308499) RBC/HPF (test code = 9355542737) See_Comment H [Automated message] The system which ge nerated this result transmit saw reference range: 0 - 3 HP F. The reference range was not used to interpret th is result as normal/abnormal . WBC/HPF (test code = 2678292783) See_Comment [Automated message] The system which ge nerated this result transmit saw reference range: 0 - 5 HP F. The reference range was not used to interpret th is result as normal/abnormal . BACTERIA (test code = Few Negative A 2670950426) MUCOUS (test code = 1759905038) Moderate Negative LPF A SQ EPITH (test code = <1 HPF 8358667721) Lab Interpretation (test code = Abnormal 40862-5) [facility]. METABOLIC PANEL (57586)2020-02-22 18:51:00 Test Item Value Reference Range Interpretation Comments NA (test code = 139 mmol/L 135-145 9616909570) K (test code = 4.2 mmol/L 3.5-5 7356293644) CL (test code = 109 mmol/L 98-108 H 2934216380) CO2 TOTAL (test code = 21 mmol/L 23-31 L 8829851649) AGAP (test code = 2-16 4500103735) BUN (test code = 12 mg/dL 7-23 2434878722) GLUCOSE (test code = 101 mg/dL 70-110 7296883111) CREATININE (test code = 0.50 mg/dL 0.5-1.04 6594067836) TOTAL BILI (test code = 0.4 mg/dL 0.1-1.4 7831852022) CALCIUM (test code = 9.5 mg/dL 8.6-10.6 8855211679) T PROTEIN (test code = 8.1 g/dL 6.3-8.2 9469410314) ALBUMIN (test code = 4.6 g/dL 3.5-5 5072677628) ALK PHOS (test code = 73 U/L 34-122 8314294664) ALTv (test code = 22 U/L 5-35 1742-6) AST(SGOT) (test code = 24 U/L 13-40 5962290454) eGFR Calculation mL/min/1.73m2 (Non-) (test code = 8583690699) eGFR Calculation mL/min/1.73m2 () (test code = 9838145490) PARTH (test code = PARTH) Association of [...] tests). Lab Interpretation Abnormal (test code = 86257-2) [facility] WITH [id number] 18:45:00 Test Item Value Reference Range Interpretation Comments WBC (test code = See_Comment [Automated message] 6690-2) The system AppSheet generated this result transmitted ref erence range: 4.30 - 1 1.10 10*3/?L. The re ference range was not u sed to interpret this result as normal/abnor mal. RBC (test code = See_Comment [Automated message] 789-8) The system AppSheet generated this result transmitted ref erence range: [...] RDW-SD (test code 45.8 fL 39-49.9 = 12449-9) RDW-CV (test code 13.8 % 12-15.5 = 788-0) PLT (test code = See_Comment [Automated message] 777-3) The system AppSheet generated this result transmitted ref erence range: 166 - 35 8 10*3/?L. The re ference range was not u sed to interpret this result as normal/abnor mal. MPV (test code = 10.2 fL 9.5-12.9 77962-0) NRBC/100 WBC (test See_Comment [Automat ed message] code = 2721757689) The syste m which generated this result transmitted ref erence range: 0.0 - 10 .0 /100 WBCs. The refer ence range was not u sed to interpret this result as normal/abnor mal. NRBC x10^3 (test <0.01 See_Comment [Automated message] code = 4443153079) The syste m which generated this result transmitted ref erence range: 10*3/?L. The reference range was not used to interpr et this result as normal/abnormal . GRAN MAT (NEUT) % 62.1 % (test code = 770-8) IMM GRAN % (test 0.40 % code = 6493470537) LYMPH % (test code 30.1 % = 736-9) MONO % (test code 5.9 % = 5905-5) EOS % (test code = 1.1 % 713-8) BASO % (test code 0.4 % = 706-2) GRAN MAT 6.02 10*3/uL 1.88-7.09 x10^3(ANC) (test code = 7687440137) IMM GRAN x10^3 0.04 10*3/uL 0-0.06 (test code = 6598539123) LYMPH x10^3 (test 2.92 10*3/uL 1.32-3.29 code = 731-0) MONO x10^3 (test 0.57 10*3/uL 0.33-0.92 code = 742-7) EOS x10^3 (test 0.11 10*3/uL 0.03-0.39 code = 711-2) BASO x10^3 (test 0.04 10*3/uL 0.01-0.07 code = 704-7) [id number] Test Item Value Reference Range Interpretation Comments POCT PREG (test code = 1605) negative On board controls acceptable with present C Line (test code = 3574) POCT PREG LOT # (test code = 3575) [id number] POCT PREG TEST DATE (test 2021-03-16 code = 3576) Lab Interpretation (test code = Normal 18545-7) [facility] *OW*2018-12-04 15:44:54 CLINICAL HISTORY: Upper abdominal [...] 05:31:13CT abdomen and pelvis with contrastLocation Code: [id number] HISTORY: 86641542: Lower abdominal pain COMPARISON: NoneTechnique: Helical CT [...] % 0.0-10.0 XR CHEST 2 VIEW *OW*2018-10-12 07:25:84E31JZGW: XR CHEST 2 VIEW *OW*HISTORY: 69890164: CoughCOMPARISON: 08/08/18INDINGS: The lungs are clear. No [...] = GMID%) 10.3 % 0.0-10.0 H THROAT [id number] 07:45:00 Test Item Value Reference Range Interpretation [...] 14:39:21PA and lateral chest, 2 viewsLocation code: [id number] HISTORY: Chest painCOMPARISON: NoneCOMMENTS:The lungs are clear and well inflated. The costophrenic angles aresharp. The cardiomediastinal silhouette is unremarkable. The bones are intact.IMPRESSION: No acute abnormality"
[2021-10-08] MEDS ORDERED: KETOROLAC 30 MG/ML INJ ONE (11:56)
[2021-10-08] MEDS ORDERED: NA CHLORIDE 0.9% 1,000 ML ONE (11:57)
[2021-10-08] MEDS ORDERED: ONDANSETRON 4 MG/2 ML VIAL ONE ×2 (11:57→13:22)
[2021-10-08 12:08] LABS: Absolute Lymphocytes (CBC) 1.9 K/uL (0.7-4.9); Hematocrit 37.7 % (36.0-45.0); Lymphocytes % 25.7 % (15.3-44.8); MPV 8.5 fL (7.6-11.3); RBC Red Blood Cell Count 4.11 M/uL (3.86-4.86)
[2021-10-08 12:31] LABS: ALT/SGPT 19 U/L (12-78); AST/SGOT 11 U/L (15-37); Albumin 3.9 g/dL (3.4-5.0); Alkaline Phosphatase 53 U/L (45-117); BUN Blood Urea Nitrogen 9 mg/dL (7-18); Bicarbonate 27 mmol/L (21-32); Bilirubin Direct 0.1 mg/dL (0-0.2); Bilirubin Total 0.6 mg/dL (0.2-1.0); Glucose Level 95 mg/dL (74-106); Lipase 67 U/L (73-393); Potassium 3.8 mmol/L (3.5-5.1); Protein, Total 7.6 g/dL (6.4-8.2); Sodium Level 137 mmol/L (136-145)
[2021-10-08 12:47] LABS: Urine Blood Negative (Negative); Urine Glucose Negative (Negative); Urine Protein Negative (Negative); Urine Specific Gravity 1.015 (1.005-1.030)
[2021-10-08 13:02] LABS: Urine Specific Gravity/Preg 1.015 (1.005-1.030)
--- NOTE | 2021-10-08 13:39 | RAD REPORT ---
EXAM DESCRIPTION: CT - Abdomen Pelvis W Contrast - 10/08/2021 12:58 pm CLINICAL HISTORY: ABD PAIN COMPARISON: Abdomen Pelvis W Contrast dated 07/10/2021 TECHNIQUE: Biphasic, helical CT imaging of the abdomen and pelvis was performed following 100 ml non -ionic IV contrast. No oral contrast administered. All CT scans are performed using dose optimization technique as appropriate and may include automated exposure control or mA/KV adjustment according to patient size. FINDINGS: No suspicious findings in the lung bases. The liver, spleen, and pancreas show no suspicious findings. Gallbladder and biliary tree are also wi thout suspicious finding. Symmetric renal function is seen with no hydronephrosis or suspicious renal mass. No pyelonephritis o r acute parenchymal process. No bladder abnormalities. No adrenal abnormalities. No abnormality of th e uterus identified. Right ovary is not clearly distinguishable from the on opacified right adnexal s mall bowel loops. A new right adnexal finding is not suspected. A 6-7 cm complex cystic mass in the r ight adnexa is present. Findings continue to favor this to be a large hydrosalpinx. No thickening or enhancement of the lim to suspect pyosalpinx. A small right hydrosalpinx cannot be excluded due to a similar appearance with on opacified fluid-filled small bowel loops. Trace free fluid is present in the cul-de-sac, within physiologic limits. No gastric dilatation or gastric wall thickening. Small bowel loops are not dilated. Small bowel ente ritis is still possible. Moderate stool volume fills the right-side of the colon. No appendicitis. No free air, abnormal free fluid or inflammatory stranding. No hernia, mass or bulky lymphadenopathy . No acute bone finding. 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 IMPRESSION: Contrast enhanced CT abdomen and pelvis showing no acute or emergent finding. No dilated small bowel and no appendicitis findings. And nonspecific small bowel enteritis is still p ossible. Complex cystic mass in the left adnexa has not changed since June 2021. This is still favored to be chronic hydrosalpinx. No findings on today's study to suspect pyosalpinx.
--- NOTE | 2021-10-08 13:44 | ER ---
Nurse's Notes [facility] Name: Serenity Collins Age: 41 yrs Sex: Female : 1980 Arrival Date: 10/08/2021 Time: 10:50 Bed 19 Private MD: Diagnosis: Abdominal pain, Generalized Presentation: 10/08 11:17 Chief complaint: Patient states: she began having severe upper abdominal pain ap3 yesterday. patient reports having felt a large "lump" under the right side of her ribs. Patient reports having irregular bowels, with a mix of constipation or diarrhea. Patient reports nausea, but denies vomiting. Coronavirus screen: At this time, the client does not indicate any symptoms associated with coronavirus-19. Ebola Screen: No symptoms or risks identified at this time. Initial Sepsis Screen: Does the patient meet any 2 criteria? No. Patient's initial sepsis screen is negative. Does the patient have a suspected source of infection? No. Patient's initial sepsis screen is negative. Risk Assessment: Do you want to hurt yourself or someone else? Patient reports no desire to harm self or others. Onset of symptoms was October 07, 2021. 11:17 Method Of Arrival: Ambulatory ap3 11:17 Acuity: MARY 3 ap3 Triage Assessment: 11:21 General: Appears uncomfortable, Behavior is calm, cooperative. Pain: Complains of pain ap3 in left upper quadrant Pain currently is 8 out of 10 on a pain scale. Quality of pain is described as pressure, Pain began gradually, 1 day ago. Neuro: Level of Consciousness is awake, alert, obeys commands, Oriented to person, place, time, situation, Appropriate for age. Cardiovascular: Patient's skin is warm and dry. Respiratory: Airway is patent Respiratory effort is even, unlabored, Respiratory pattern is regular, symmetrical. GI: Reports upper abdominal pain, constipation, diarrhea, nausea. 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 Flu vaccine is not up to date. - Social history:: Smoking status: Patient reports the use of cigarette tobacco products, denies chronic smoking, but will smoke occasionally, Patient uses alcohol, occasionally. street drugs, marijuana. Screenin:22 Abuse screen: Denies threats or abuse. Nutritional screening: No deficits noted. ap3 Tuberculosis screening: No symptoms or risk factors identified. 11:24 Fall Risk None identified. No fall in past 12 months (0 pts). No secondary diagnosis (0 ap3 pts). Assessment: 11:30 General: SEE TRIAGE NOTE. bp 12:27 Reassessment: No changes from previously documented assessment. Patient and/or family bp updated on plan of care and expected duration. Pain level reassessed. 13:56 Reassessment: PT D/C HOME AMBULATORY, DX WITH NONSPECIFIC ABDOMINAL PAIN. ss7 Vital Signs: 11:17 BP 127 / 74; Pulse 91; Resp 18; Temp 99.3(TE); Pulse Ox 99% ; Weight 54.43 kg; Height 5 ap3 ft. 2 in. (157.48 cm); 12:26 BP 117 / 82; Pulse 56; Resp 16; Pulse Ox 100% ; bp 13:25 BP 113 / 82; Pulse 65; Resp 18; Pulse Ox 100% on R/A; ss7 13:56 BP 131 / 63; Pulse 76; Resp 16; Pulse Ox 100% ; ss7 11:17 Body Mass Index 21.95 (54.43 kg, 157.48 cm) ap3 ED Course: 10:50 Patient arrived in ED. mr 11:20 Triage completed. ap3 11:20 Kristel Mcintyre FNP-C is PHCP. kb 11:20 Ben Otero MD is Attending Physician. kb 11:22 Arm band placed on right wrist. ap3 11:24 Patient has correct armband on for positive identification. Placed in gown. Bed in low ap3 position. Call light in reach. Side rails up X 1. 11:29 Andrés Quintero, RN is Primary Nurse. bp 12:02 Basic Metabolic Panel Sent. mh5 12:02 CBC with Diff Sent. mh5 12:02 Hepatic Function Sent. mh5 12:02 Lipase Sent. mh5 12:07 Initial lab(s) drawn, by me, sent to lab. Inserted saline lock: 22 gauge in right mh5 antecubital area, using aseptic technique. Blood collected. 12:08 Warm blanket given. Pulse ox on. NIBP on. mh5 12:58 CT Abd/Pelvis - IV Contrast Only In Process Unspecified. EDMS 13:09 Urine --Ancillary (enter results) Sent. ss7 13:56 No provider procedures requiring assistance completed. IV discontinued, intact, ss bleeding controlled, No redness/swelling at site. Pressure dressing applied. Administered Medications: 12:05 Drug: NS 0.9% 1000 ml Route: IV; Rate: 1000 ml; Site: right antecubital; bp 13:24 Follow up: IV Status: Completed infusion; IV Intake: 1000ml ss7 13:57 Follow up: IV Status: Completed infusion; IV Intake: 1000ml ss7 12:05 Drug: Ketorolac 15 mg Route: IVP; Site: right antecubital; bp 13:57 Follow up: Response: No adverse reaction; Pain is decreased ss7 12:05 Drug: Zofran (Ondansetron) 4 mg Route: IVP; Site: right antecubital; bp 13:57 Follow up: Response: Nausea is decreased ss7 13:24 Drug: Zofran (Ondansetron) 4 mg Route: IVP; Site: right antecubital; ss7 13:57 Follow up: Response: Nausea is decreased ss7 Intake: 13:24 IV: 1000ml; Total: 1000ml. ss7 13:57 IV: 1000ml; Total: 2000ml. ss7 Outcome: 13:43 Discharge ordered by . kb 13:56 Discharged to home ambulatory. ss7 13:56 Condition: stable 13:56 Discharge instructions given to patient, Instructed on discharge instructions, follow up and referral plans. medication usage, Demonstrated understanding of instructions, follow-up care, medications, Prescriptions given X 2. 13:56 Discharged to home ambulatory. ss 13:56 Condition: good 13:58 Patient left the ED. ss7 Signatures: Dispatcher [employer] EDMS Kristel Mcintyre, DERRICKC SUBEDITOR-Bev Melanie Castelan Lara, RN RN ss [facility] Andrés Quintero, RN RN bp Alisson Wagner RN RN 3 Neely, Kaci, RN RN ss7
--- NOTE | 2021-10-08 13:45 | EDPHYS ---
Physician Documentation [facility] Name: Serenity Collins Age: 41 yrs Sex: Female : 1980 Arrival Date: 10/08/2021 Time: 10:50 Bed 19 Private MD: ED Physician Ben Otero HPI: 10/08 13:42 This 41 yrs old Female presents to ER via Ambulatory with complaints of Abdominal Pain, kb Diarrhea. 13:42 The patient presents with abdominal pain in the left upper quadrant, in the left lower kb quadrant. The patient has not recently seen a physician. 13:43 Onset: The symptoms/episode began/occurred yesterday. The symptoms do not radiate. kb Associated signs and symptoms: Pertinent positives: diarrhea, nausea. The symptoms are described as constant. Modifying factors: The symptoms are alleviated by nothing, the symptoms are aggravated by pressure. Severity of pain: At its worst the pain was moderate in the emergency department the pain is unchanged. The patient has not experienced similar symptoms in the past. 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 Flu vaccine is not up to date. - Social history:: Smoking status: Patient reports the use of cigarette tobacco products, denies chronic smoking, but will smoke occasionally, Patient uses alcohol, occasionally. street drugs, marijuana. ROS: 13:42 Constitutional: Negative for fever, chills, and weight loss. kb 13:42 Abdomen/GI: Positive for abdominal pain, nausea, diarrhea. 13:42 All other systems are negative. Exam: 13:41 Constitutional: This is a well developed, well nourished patient who is awake, alert, kb and in no acute distress. Head/Face: Normocephalic, atraumatic. ENT: Moist Mucous membranes Cardiovascular: Regular rate and rhythm with a normal S1 and S2. No gallops, murmurs, or rubs. No pulse deficits. Respiratory: Respirations even and unlabored. No increased work of breathing. Talking in full sentences Skin: Warm, dry with normal turgor. Normal color. MS/ Extremity: Pulses equal, no cyanosis. Neurovascular intact. Full, normal range of motion. Neuro: Awake and alert, GCS 15, oriented to person, place, time, and situation. Moves all extremities. Normal gait. Psych: Awake, alert, with orientation to person, place and time. Behavior, mood, and affect are within normal limits. 13:41 Abdomen/GI: Inspection: abdomen appears normal, Bowel sounds: normal, in all quadrants, Palpation: soft, in all quadrants, moderate abdominal tenderness, in the left upper quadrant. Vital Signs: 11:17 BP 127 / 74; Pulse 91; Resp 18; Temp 99.3(TE); Pulse Ox 99% ; Weight 54.43 kg; Height 5 ap3 ft. 2 in. (157.48 cm); 12:26 BP 117 / 82; Pulse 56; Resp 16; Pulse Ox 100% ; bp 13:25 BP 113 / 82; Pulse 65; Resp 18; Pulse Ox 100% on R/A; ss7 13:56 BP 131 / 63; Pulse 76; Resp 16; Pulse Ox 100% ; ss7 11:17 Body Mass Index 21.95 (54.43 kg, 157.48 cm) ap3 MDM: 11:32 Patient medically screened. kb 13:41 Data reviewed: vital signs, nurses notes. Data interpreted: Pulse oximetry: on room air kb is 100 %. Interpretation: normal. Counseling: I had a detailed discussion with the patient and/or guardian regarding: the historical points, exam findings, and any diagnostic results supporting the discharge/admit diagnosis, lab results, radiology results, the need for outpatient follow up, a family practitioner, to return to the emergency department if symptoms worsen or persist or if there are any questions or concerns that arise at home. 10/08 11:33 Order name: Basic Metabolic Panel; Complete Time: 12:32 kb 10/08 11:33 Order name: CBC with Diff; Complete Time: 12:11 kb 10/08 11:33 Order name: Hepatic Function; Complete Time: 12:32 kb 10/08 11:33 Order name: Lipase; Complete Time: 12:32 kb 10/08 12:47 Order name: Urine Dipstick-Ancillary; Complete Time: 13:12 EDMS 10/08 12:52 Order name: Urine --Ancillary (enter results) bd 10/08 11:33 Order name: IV Saline Lock; Complete Time: 12:02 kb 10/08 11:33 Order name: Labs collected and sent; Complete Time: 12:02 kb 10/08 11:50 Order name: CT Abd/Pelvis - IV Contrast Only; Complete Time: 13:40 kb 10/08 12:52 Order name: Urine --Ancillary; Complete Time: 13:12 EDMS Administered Medications: 12:05 Drug: NS 0.9% 1000 ml Route: IV; Rate: 1000 ml; Site: right antecubital; bp 13:24 Follow up: IV Status: Completed infusion; IV Intake: 1000ml ss7 13:57 Follow up: IV Status: Completed infusion; IV Intake: 1000ml ss7 12:05 Drug: Ketorolac 15 mg Route: IVP; Site: right antecubital; bp 13:57 Follow up: Response: No adverse reaction; Pain is decreased ss7 12:05 Drug: Zofran (Ondansetron) 4 mg Route: IVP; Site: right antecubital; bp 13:57 Follow up: Response: Nausea is decreased ss7 13:24 Drug: Zofran (Ondansetron) 4 mg Route: IVP; Site: right antecubital; ss7 13:57 Follow up: Response: Nausea is decreased ss7 Disposition Summary: 10/08/21 13:43 Discharge Ordered Location: Home kb Condition: Stable kb Diagnosis - Abdominal pain, Generalized kb Followup: kb - With: Private Physician - When: 2 - 3 days - Reason: Recheck today's complaints, Continuance of care, Re-evaluation by your physician Followup: kb - With: Emergency Department - When: As needed - Reason: Worsening of condition Discharge Instructions: - Discharge Summary Sheet kb - Abdominal Pain, Adult, [id number] kb Forms: - Medication Reconciliation Form kb - Thank You Letter kb - Antibiotic Education kb - Prescription Opioid Use kb Prescriptions: - Zofran 4 mg Oral Tablet - take 1 tablet by ORAL route every 12 hours As needed; 20 tablet; Refills: 0, kb Product Selection Permitted - dicyclomine 20 mg Oral Tablet - take 1 tablet by ORAL route 4 times per day As needed; 20 tablet; Refills: 0, kb Product Selection Permitted Signatures: Dispatcher [employer] EDKristel Marquez, LEAD GENERATOR-C LEAD GENERATOR-Andrés Montoya, RN RN bp Alisson Wagner RN RN ap3 Kaci Neely RN RN ss7 Corrections: (The following items were deleted from the chart) 13:43 13:42 The patient presents with abdominal pain in the left lower quadrant, kb kb 13:50 13:41 Abdomen/GI: Inspection: abdomen appears normal, Bowel sounds: normal, in all kb quadrants, Palpation: soft, in all quadrants, mild abdominal tenderness, in the left upper quadrant and left lower quadrant, kb
[2021-10-08 14:14] VITALS: O2SAT 100
[2021-10-08 14:17] VITALS: BP 131/63
[2021-10-08 14:19] VITALS: TEMP 99.3
== END 2021-10-08 13:58 | disposition home or self-care (01) ==
LOC: ER 10:48
DX: R10.84 Generalized abdominal pain (principal); F17.210 Nicotine dependence, cigarettes, uncomplicated; Z88.5 Allergy status to narcotic agent; Z91.013 Allergy to seafood; Z91.018 Allergy to other foods
CPT/HCPCS: 36415; 74177; 80048; 80076; 81003; 81025; 83690; 85025; 96361; 96374; 96375; 99284; J2405; J7030; Q9967

== ENCOUNTER 2022-07-19 08:47 | Emergency (ER) | payer SELFPAY ==
--- OUTSIDE RECORDS SUMMARY | 2022-07-19 08:53 | XMS REPORT | Continuity of Care Document ---
:1980 Author Organization [facility] t Address [address] [place] [address] Care Team Providers Name Role Phone Pcp, Patient Does Not Have A Primary Care Physician [phone] ANTONY JOSHUA Attending Clinician Unavailable Katy Hadley RN Attending Clinician Unavailable Felisa Covington Attending Clinician Simeon Herman Attending Clinician Unavailable Suresh Bonilla DDS Attending Clinician SURESH BONILLA Attending Clinician Unavailable Cristy Burden Attending Clinician Peggy Benitez LVN Attending Clinician Chau Carver DDS Attending Clinician CHAU CARVER Attending Clinician Unavailable Doctor Unassigned, [place] Attending Clinician Unavailable FELISA DAVIS Attending Clinician Unavailable Antony Joshua MD Attending Clinician Pgy3 Attending Clinician Unavailable Arianna Locke MD Attending Clinician OTIS HOLLOWAY Attending Clinician Unavailable Only, Adc Test Attending Clinician Unavailable Otis Holloway MD Attending Clinician Melanie Lou RN Attending Clinician BENTLEY HERRON Attending Clinician Unavailable Eliz Cantu MD Attending Clinician Jammie TAY, Shawn Attending Clinician SHAWN AGUDELO Attending Clinician Unavailable Theodora Gonzalez MD Attending Clinician SENA JONES Attending Clinician Unavailable Karen SENIOR ENGINEERING ASSOCIATE, Sena Attending Clinician Alejandro Benites DO Attending Clinician Unknown, Attending Attending Clinician Unavailable UNKNOWN, ATTENDING Attending Clinician Unavailable SON SELBY Attending Clinician Unavailable Acosta GASCAW, Montse Mccormack Attending Clinician Unavailable Leonid Attending Clinician Unavailable Jody Blanco MD Attending Clinician Suleiman GALVANS, Bentley Attending Clinician EMILY RIVERA Attending Clinician Unavailable Emily Rivera MD Attending Clinician Only, [facility] Test Attending Clinician Unavailable SABINO DUMONT Attending Clinician Unavailable Sabino Dumont MD Attending Clinician FRANKLYN CASTILLO Attending Clinician Unavailable Pgy2 Attending Clinician Unavailable Franklyn Castillo MD Attending Clinician Jack Ott MD Attending Clinician MARINO WILLS Attending Clinician Unavailable Alma Rosa Sethi MD Attending Clinician [phone] Marino Wills MD Attending Clinician Catalina Driscoll Attending Clinician Pcp, Patient Does Not Have A Attending Clinician [phone] Curt Koehler Attending Clinician Curt KEMP Attending Clinician Unavailable DR PHYLICIA PAEZ Attending Clinician Unavailable DR KEYUR PUENTE Attending Clinician Unavailable DR MARKELL HUNT Attending Clinician Unavailable DR PAULINE REDDY Attending Clinician Unavailable DR MELANIE LAI Attending Clinician Unavailable DR HANY WILL Attending Clinician Unavailable DR DARÍO CHAMBERS Attending Clinician Unavailable ANTONY JOSHUA Admitting Clinician Unavailable SURESH BONILLA Admitting Clinician Unavailable Chad DDS, Suresh Hemphill Admitting Clinician Josiane TAY, Antony Leach Admitting Clinician SENA JONES Admitting Clinician Unavailable ZendeliaWinifred Admitting Clinician Unavailable EMILY RIVERA Admitting Clinician Unavailable Miguel TAY, Emily Mccormack Admitting Clinician SABINO DUMONT Admitting Clinician Unavailable MARINO WILLS Admitting Clinician Unavailable Johann TAY, Marino Davila Admitting Clinician JEANNINE, DR WHATLEY Admitting Clinician Unavailable CINDI, DR KEYUR Elias Admitting Clinician Unavailable GILBERT, DR MARKELL Diaz Admitting Clinician Unavailable MAUREEN, DR CARPENTER Admitting Clinician Unavailable MING, DR MELANIE Downing Admitting Clinician Unavailable NICOLETTE, DR LEACH Admitting Clinician Unavailable TRISH, DR DARÍO Newton Admitting Clinician Unavailable Payers Payer Name Policy Type Policy Number Effective Date Expiration Date S matty [facility] [employer] [id number] 2021 00:00:00 2022 00 :00:00 ICF [id number] 2021 00:00:00 2021 00:00 :00 Problems Condition Condition Condition Status Onset Resolution Last Treating Co mments Source Name Details Category Date Date Treatment Clinician Date Odontogeni Odontogeni Disease Active 2021-08 U nivers c c 0-04 [place] Medical Branch S/P S/P Disease Active Univers hysterecto hysterecto 6-09 it y of my my 00:00: [place] 00 Medical Branch Abnormal Abnormal Disease Active Overview: Un zeus uterine uterine 4-14 Formattin ity o f bleeding bleeding 00:00: g of this [place] (AUB) (AUB) 00 note Medical might be Branch different from the original. Added automatic ally from request for surgery [id number] Chronic Chronic Disease Active Overview: Univ ers pelvic pelvic 4-14 Formattin ity of pain in pain in 00:00: g of this [place] female female 00 note Medical might be Branch different from the original. Added automatic ally from request for surgery [id number] Hydrosalpi Hydrosalpi Disease Active U nivers nx nx 3-29 ity of 00:00: Medical Branch Generalize Generalize Disease Active U nivers d anxiety d anxiety 3-29 ity of disorder disorder 00:00: 00 Medical Branch Bipolar Bipolar Disease Active Univers disorder disorder 3-29 ity of in full in full 00:00: [place] remission, remission, 00 Me dical most most Branch recent recent episode episode unspecifie unspecifie d type d type Abdominal Abdominal Disease Active Uni vers pain pain 2-23 ity of 00:00: 00 Medical Branch Allergies, Adverse Reactions, Alerts Allergy Allergy Status Severity Reaction(s) Onset Inactive Treating Comm ents Source Name Type Date Date Clinician HYDROCOD DRUG Active ITCHING 2021-08 Univers ONE-ACET 0-04 ity of AMINOPHE 00:00: [place] N 00 Medical Branch Hydrocod Propensi Active Itching 2021-08 Unive rs one-Acet ty to 0-04 ity of aminophe adverse 00:00: [place] n reaction 00 Medical s Branch Quetiapi Drug Active Other - See Made pt. U nivers ne Intolera comments 6-07 Get ity of nce 00:00: really [place] 00 mad Medical Branch Shellfis Propensi Active Nausea 0 Univer s h ty to and/or 6-07 ity of Derived adverse Vomiting 00:00: [place] reaction 00 Medical s Branch QUETIAPI DRUG Active High Other-Cmnt 0 Univ ers NE INGREDI 6-07 ity of 00:00: [place] 00 Medical Branch SHELLFIS DRUG Active High ITCHING 0 Univers H INGREDI 6-07 ity of DERIVED 00:00: 00 Medical Branch Joe Propensi Active Anaphylaxis 2021-0 Uni vers ty to 4-08 ity of adverse 00:00: [place] reaction 00 Medical s Branch JOE DRUG Active Anaphylaxis 0 Unive rs INGREDI 4-08 ity of 00:00: [place] 00 Medical Branch Codeine Propensi Active Itching 0 To face Unive rs ty to 2-23 ity of adverse 00:00: [place] reaction 00 Medical s Branch CODEINE DRUG Active ITCHING Univers INGREDI 2-23 ity of 00:00: [place] 00 Medical Branch Social History Social Habit Start Date Stop Date Quantity Comments Source History of Cigarette Smoker Universi ty of tobacco use [facility] Exposure to 2022-05-24 2022-06-03 Not sure [facility] SARS-CoV-2 00:00:00 10:07:00 [place] Medical (event) Branch Tobacco use and 2022-06-03 2022-06-03 Smokeless tobacco Un iversity of exposure 00:00:00 00:00:00 non-user [facility] Tobacco Comment 2022-04-07 2022-04-07 Occassionally smokes [facility] 00:00:00 00:00:00 1 each [facility] Sex Assigned At [birth year] Universit y of 00:00:00 00:00:00 [facility] Smoking Status Start Date Stop Date Source Occasional tobacco 2022-06-03 00:00:00 [facility] [place] smoker Medical Branch Ex-smoker 2022-04-07 00:00:00 2022-04-07 [place] [facility] [place] 00:00:00 [facility] Medications Ordered Filled Start Stop Current Ordering Indication Dosage Frequency Signature Comments Components Source Medication Medication Date Date Medication? Clinician (SIG) Name Name TAKE 1 2021-08 No TABLET BY 1-25 MOUTH EVERY 00:00: 6 HOURS 00 NEEDED OLANZapine 2021-08 Yes 2.5mg Take 2.5 Un zeus 5 mg tablet 0-07 mg by ity of 13:28: mouth [place] 48 daily. Medical Branch OLANZapine 2021-08 Yes 2.5mg Take 2.5 Un zeus 5 mg tablet 0-07 mg by ity of 13:28: mouth [place] 48 daily. Medical Branch OLANZapine 2021-08 Yes 2.5mg Take 2.5 Un zeus 5 mg tablet 0-07 mg by ity of 13:28: mouth [place] 48 daily. Medical Branch OLANZapine 2021-08 Yes 2.5mg Take 2.5 Un zeus 5 mg tablet 0-07 mg by ity of 13:28: mouth [place] 48 daily. Medical Branch OLANZapine 2021-08 Yes 2.5mg Take 2.5 Un zeus 5 mg tablet 0-07 mg by ity of 13:28: mouth [place] 48 daily. Medical Branch OLANZapine 2021-08 Yes 2.5mg Take 2.5 Un zeus 5 mg tablet 0-07 mg by ity of 13:28: mouth [place] 48 daily. Medical Branch OLANZapine 2021-08 Yes 2.5mg Take 2.5 Un zeus 5 mg tablet 0-07 mg by ity of 13:28: mouth [place] 48 daily. Medical Branch OLANZapine 2021-08 Yes 2.5mg Take 2.5 Un zeus 5 mg tablet 0-07 mg by ity of 13:28: mouth [place] 48 daily. Medical Branch OLANZapine 2021-08 Yes 2.5mg Take 2.5 Un zeus 5 mg tablet 0-07 mg by ity of 13:28: mouth [place] 48 daily. Medical Branch ibuprofen 2021-08 Yes 600mg 600 mg, Univ ers (ADVIL 0-07 Oral, Q6H, ity of CHILDREN'S) 01:30: First dose [place] 100 mg/5 mL 00 (after Medica l oral last Branch suspension modificati 600 mg on) on [facility] 05/22/22 at 2030, Until Discontinu ed, Routine acetaminoph 2021-08 Yes 650mg 650 mg, Un zeus en 0-07 Oral, Q6H, ity of (TYLENOL) 01:15: First dose [place] 160 mg/5 mL 00 (after Medica l oral liquid last Branch 650 mg modificati on) on Thu05/22/22 at 2015, Until Discontinu ed, Routine ibuprofen 2021-08 Yes [id number] 600mg Take 1 Univers 600 mg 0-07 101 tablet by ity of tablet 00:00: mouth [place] 00 every 6 Medical (six) Branch hours as needed for Pain (scale 4-6). chlorhexidi 2021-08 Yes [id number] 15mL Swish and Univers ne 0.12 % 0-07 101 spit out ity of mouthwash 00:00: 15 [place] 00 the Medical morning Branch and 15 mL in the evening. ibuprofen 2021-08 Yes [id number] 600mg Take 1 Univers 600 mg 0-07 101 tablet by ity of tablet 00:00: mouth [place] 00 every 6 Medical (six) Branch hours as needed for Pain (scale 4-6). chlorhexidi 2021-08 Yes [id number] 15mL Swish and Univers ne 0.12 % 0-07 101 spit out ity of mouthwash 00:00: 15 [place] 00 the Medical morning Branch and 15 mL in the evening. ibuprofen 2021-08 Yes [id number] 600mg Take 1 Univers 600 mg 0-07 101 tablet by ity of tablet 00:00: mouth [place] 00 every 6 Medical (six) Branch hours as needed for Pain (scale 4-6). chlorhexidi 2021-08 Yes [id number] 15mL Swish and Univers ne 0.12 % 0-07 101 spit out ity of mouthwash 00:00: 15 [place] 00 the Medical morning Branch and 15 mL in the evening. ibuprofen 2021-08 Yes [id number] 600mg Take 1 Univers 600 mg 0-07 101 tablet by ity of tablet 00:00: mouth [place] 00 every 6 Medical (six) Branch hours as needed for Pain (scale 4-6). chlorhexidi 2021-08 Yes [id number] 15mL Swish and Univers ne 0.12 % 0-07 101 spit out ity of mouthwash 00:00: 15 [place] 00 the Medical morning Branch and 15 mL in the evening. ibuprofen 2021-08 Yes [id number] 600mg Take 1 Univers 600 mg 0-07 101 tablet by ity of tablet 00:00: mouth [place] 00 every 6 Medical (six) Branch hours as needed for Pain (scale 4-6). chlorhexidi 2021-08 Yes [id number] 15mL Swish and Univers ne 0.12 % 0-07 101 spit out ity of mouthwash 00:00: 15 [place] 00 the Medical morning Branch and 15 mL in the evening. ibuprofen 2021-08 Yes [id number] 600mg Take 1 Univers 600 mg 0-07 101 tablet by ity of tablet 00:00: mouth [place] 00 every 6 Medical (six) Branch hours as needed for Pain (scale 4-6). chlorhexidi 2021-08 Yes [id number] 15mL Swish and Univers ne 0.12 % 0-07 101 spit out ity of mouthwash 00:00: 15 [place] 00 the Medical morning Branch and 15 mL in the evening. ibuprofen 2021-08 Yes [id number] 600mg Take 1 Univers 600 mg 0-07 101 tablet by ity of tablet 00:00: mouth [place] 00 every 6 Medical (six) Branch hours as needed for Pain (scale 4-6). chlorhexidi 2021-08 Yes [id number] 15mL Swish and Univers ne 0.12 % 0-07 101 spit out ity of mouthwash 00:00: 15 [place] 00 the Medical morning Branch and 15 mL in the evening. ibuprofen 2021-08 Yes [id number] 600mg Take 1 Univers 600 mg 0-07 101 tablet by ity of tablet 00:00: mouth [place] 00 every 6 Medical (six) Branch hours as needed for Pain (scale 4-6). chlorhexidi 2021-08 Yes [id number] 15mL Swish and Univers ne 0.12 % 0-07 101 spit out ity of mouthwash 00:00: 15 [place] 00 the Medical morning Branch and 15 mL in the evening. ibuprofen 2021-08 Yes [id number] 600mg Take 1 Univers 600 mg 0-07 101 tablet by ity of tablet 00:00: mouth [place] 00 every 6 Medical (six) Branch hours as needed for Pain (scale 4-6). chlorhexidi 2021-08 Yes [id number] 15mL Swish and Univers ne 0.12 % 0-07 101 spit out ity of mouthwash 00:00: 15 [place] 00 the Medical morning Branch and 15 mL in the evening. acetaminoph 2021-08- Yes [id number] 650mg Take 2 Univers en 0-07 10-08 101 tablets by ity of (TYLENOL) 00:00: 04:59 mouth [place] 325 mg 00 :00 every 6 Medical tablet (six) Branch hours as needed for Alternate with ibuprofen for pain scale 4-6. acetaminoph 2021-08- Yes [id number] 650mg Take 2 Univers en 0-07 10-08 101 tablets by ity of (TYLENOL) 00:00: 04:59 mouth [place] 325 mg 00 :00 every 6 Medical tablet (six) Branch hours as needed for Alternate with ibuprofen for pain scale 4-6. acetaminoph 2021-08- Yes [id number] 650mg Take 2 Univers en 0-07 10-08 101 tablets by ity of (TYLENOL) 00:00: 04:59 mouth [place] 325 mg 00 :00 every 6 Medical tablet (six) Branch hours as needed for Alternate with ibuprofen for pain scale 4-6. acetaminoph 2021-08- Yes [id number] 650mg Take 2 Univers en 0-07 10-08 101 tablets by ity of (TYLENOL) 00:00: 04:59 mouth [place] 325 mg 00 :00 every 6 Medical tablet (six) Branch hours as needed for Alternate with ibuprofen for pain scale 4-6. acetaminoph 2021-08- Yes [id number] 650mg Take 2 Univers en 0-07 10-08 101 tablets by ity of (TYLENOL) 00:00: 04:59 mouth [place] 325 mg 00 :00 every 6 Medical tablet (six) Branch hours as needed for Alternate with ibuprofen for pain scale 4-6. acetaminoph 2021-08- Yes [id number] 650mg Take 2 Univers en 0-07 10-08 101 tablets by ity of (TYLENOL) 00:00: 04:59 mouth [place] 325 mg 00 :00 every 6 Medical tablet (six) Branch hours as needed for Alternate with ibuprofen for pain scale 4-6. acetaminoph 2021-08- Yes [id number] 650mg Take 2 Univers en 0-07 10-08 101 tablets by ity of (TYLENOL) 00:00: 04:59 mouth [place] 325 mg 00 :00 every 6 Medical tablet (six) Branch hours as needed for Alternate with ibuprofen for pain scale 4-6. acetamino 2021-08- Yes [id number] 650mg Take 2 Univers en 0-07 10-08 101 tablets by ity of (TYLENOL) 00:00: 04:59 mouth [place] 325 mg 00 :00 every 6 Medical tablet (six) Branch hours as needed for Alternate with ibuprofen for pain scale 4-6. acetaminoph 2021-08- Yes [id number] 650mg Take 2 Univers en 0-07 10-08 101 tablets by ity of (TYLENOL) 00:00: 04:59 mouth [place] 325 mg 00 :00 every 6 Medical tablet (six) Branch hours as needed for Alternate with ibuprofen for pain scale 4-6. amoxicillin 2021-08- Yes [id number] 1{tbl} Take 1 Univers -clavulanat 0-07 10-15 101 tablet by it y of e 00:00: 04:59 mouth in [place] (AUGMENTIN) 00 :00 the Medical 875-125 mg morning Branch per tablet and 1 tablet in the evening. Do all this for 7 days. metroNIDAZO 2021-08- Yes [id number] 500mg Take 1 Univers LE (FLAGYL) 0-07 10-15 101 tablet by it y of 500 mg 00:00: 04:59 mouth [place] tablet 00 :00 every 12 Medical (twelve) Branch hours for 7 days. amoxicillin 2021-08- Yes [id number] 1{tbl} Take 1 Univers -clavulanat 0-07 10-15 101 tablet by it y of e 00:00: 04:59 mouth in [place] (AUGMENTIN) 00 :00 the Medical 875-125 mg morning Branch per tablet and 1 tablet in the evening. Do all this for 7 days. metroNIDAZO 2021-08- Yes [id number] 500mg Take 1 Univers LE (FLAGYL) 0-07 10-15 101 tablet by it y of 500 mg 00:00: 04:59 mouth [place] tablet 00 :00 every 12 Medical (twelve) Branch hours for 7 days. amoxicillin 2021-08- Yes [id number] 1{tbl} Take 1 Univers -clavulanat 0-07 10-15 101 tablet by it y of e 00:00: 04:59 mouth in [place] (AUGMENTIN) 00 :00 the Medical 875-125 mg morning Branch per tablet and 1 tablet in the evening. Do all this for 7 days. metroNIDAZO 2021-08- Yes [id number] 500mg Take 1 Univers LE (FLAGYL) 0-07 10-15 101 tablet by it y of 500 mg 00:00: 04:59 mouth [place] tablet 00 :00 every 12 Medical (twelve) Branch hours for 7 days. morpHINE (2021-08 Yes 2mg 2 mg, Slow Univers mg/mL) 0-05 IV Push, ity of injection 2 18:14: Q4HPRN, [place] mg 35 Starting Medical on Thu05/21/22 at 1314, Until Discontinu ed, Routine, Pain (scale 7-10) morpHINE (2021-08 Yes 2mg 2 mg, Slow Univers mg/mL) 0-05 IV Push, ity of injection 2 18:14: Q4HPRN, [place] mg 35 Starting Medical on Thu Branch 05/21/22 at 1314, Until Discontinu ed, Routine, Pain (scale 7-10) lactated 2021-08 Yes 1000mL at 75 Univer s ringers IV 0-05 mL/hr, ity of infusion 16:30: 1,000 mL, [place] 1,000 mL 00 IV Medical Infusion, Branch CONTINUOUS , Starting on Thu05/21/22 at 1130, Until Discontinu ed, Routine, PACU lactated 2021-08 Yes 1000mL at 75 Univer s ringers IV 0-05 mL/hr, ity of infusion 16:30: 1,000 mL, [place] 1,000 mL 00 IV Medical Infusion, Branch CONTINUOUS , Starting on Thu05/21/22 at 1130, Until Discontinu ed, Routine, PACU lidocaine 2021-08- No PRN, Univers 2% viscous 0-05 05-21 Starting ity of (LIDOCAINE 15:56: 16:27 on Thu [place] VISCOUS) 2 00 :27 05/21/22 at Med ical % solution 1056, Branch Until Thu05/21/22 at 1127, Routine, Intra-op chlorhexidi 2021-08 Yes 15mL 15 mL, Univ ers ne 0-05 Oral ity of (PERIDEX) 13:00: ([place] 0.12 % 00 Spit Out), Medical mouthwash BID, First Bran ch 15 mL dose on Thu05/21/22 at 0800, Until Discontinu ed, Routine chlorhexidi 2021-08 Yes 15mL 15 mL, Univ ers ne 0-05 Oral ity of (PERIDEX) 13:00: ([place] 0.12 % 00 Spit Out), Medical mouthwash BID, First Bran ch 15 mL dose on Thu05/21/22 at 0800, Until Discontinu ed, Routine ampicillin- 2021-08- Yes 3g 3 g, IV Un zeus sulbactam 0-05 05-24 Piggyback, ity of (UNASYN) 3 04:30: 04:29 Q6H ABX, [place] g in NaCl 00 :00 12 doses, Medic al 0.9% (NS) First dose Bran ch 100 mL on Thu MINI-BAG 05/20/22 at 2330, Last dose on Thu05/23/22 at 1730, Administer over 30 Minutes, 100 mL
Reas on for Anti-Infec tive: Documented Infection< br>Documen saw Infection Site: HEENT
D uration of Therapy: Other (see Comments) ampicillin- 2021-08- Yes 3g 3 g, IV Un zeus sulbactam 0-05 10-08 Piggyback, ity of (UNASYN) 3 04:30: 04:29 Q6H ABX, [place] g in NaCl 00 :00 12 doses, Medic al 0.9% (NS) First dose Bran ch 100 mL on Thu MINI-BAG 05/20/22 at 2330, Last dose on Thu05/23/22 at 1730, Administer over 30 Minutes, 100 mL
Reas on for Anti-Infec tive: Documented Infection< br>Documen saw Infection Site: HEENT
D uration of Therapy: Other (see Comments) lactated 2021-08- No 1000mL at 125 [facility] ers ringers IV 0-05 10-05 mL/hr, ity of infusion 03:45: 20:29 1,000 mL, [place] 1,000 mL 00 :02 IV Medical Infusion, Branch CONTINUOUS , Starting on Thu05/20/22 at 2245, Until Thu05/21/22 at 1529, Routine lactated 2021-08- No 1000mL at 125 [facility] ers ringers IV 0-05 10-05 mL/hr, ity of infusion 03:45: 20:29 1,000 mL, [place] 1,000 mL 00 :02 IV Medical Infusion, Branch CONTINUOUS , Starting on Thu05/20/22 at 2245, Until Thu05/21/22 at 1529, Routine ketorolac 2021-08 Yes 15mg 15 mg, Univer s (TORADOL) 0-05 Slow IV ity of injection 03:29: Push, [place] 15 mg 07 Q6HPRN, 4 Medical doses, Branch Starting on Thu05/20/22 at 2229, Until Discontinu ed, Routine, Pain (scale 4-6) ketorolac 2021-08- No 15mg 15 mg, Unive rs (TORADOL) 0-05 10-06 Slow IV ity of injection 03:29: 10:35 Push, [place] 15 mg 07 :00 Q6HPRN, 4 Medical doses, Branch Starting on e 05/20/22 at 2229, Until Discontinu ed, Routine, Pain (scale 4-6) ibuprofen 2021-08 Yes 600mg 600 mg, Univ ers (ADVIL 0-05 Oral, ity of CHILDREN'S) 03:28: Q6HPRN, [place] 100 mg/5 mL 25 Starting Medi kiran oral on e Branch suspension 05/20/22 at 600 mg 2228, Until Discontinu ed, Routine, Pain (scale 1-3) ibuprofen 2021-08 No 600mg 600 mg, Uni vers (ADVIL 0-05 10-06 Oral, ity of CHILDREN'S) 03:28: 23:30 Q6HPRN, [place] 100 mg/5 mL 25 :33 Starting Medi kiran oral on e Branch suspension 05/20/22 at 600 mg 2228, Until Amberly 05/22/22 at 1830, Routine, Pain (scale 1-3) ondansetron 2021-08 Yes 4mg 4 mg, Slow Univers (ZOFRAN 0-05 IV Push, ity of (PF)) 03:28: Q4HPRN, [place] injection 4 21 Starting Medi kiran mg on Tue Branch 05/20/22 at 2228, Until Discontinu ed, Routine, Nausea and Vomiting (N/V) ondansetron 2021-08 Yes 4mg 4 mg, Slow Univers (ZOFRAN 0-05 IV Push, ity of (PF)) 03:28: Q4HPRN, [place] injection 4 21 Starting Medi kiran mg on e Branch 05/20/22 at 2228, Until Discontinu ed, Routine, Nausea and Vomiting (N/V) ampicillin- 2021-08 3g 3 g, IV Un zeus sulbactam 0-05 10-05 Piggyback, ity of (UNASYN) 3 02:00: 03:32 ONCE, 1 [place] g in NaCl 00 :00 dose, On Medica l 0.9% (NS) e Branch 100 mL 10/4/22 at MINI-BAG 2100, Administer over 30 Minutes, 100 mL
Reas on for Anti-Infec tive: Documented Infection< br>Documen saw Infection Site: Other
O ther site: dental
Duration of Therapy: 7 days iopamidol 2021-08- No [id number] 70mL 70 mL, Univers (ISOVUE 0-05 10-05 101 Intravenou ity o f 370-500 mL) 02:00: 02:00 s, ONCE, 1 [place] injection 00 :00 dose, On Medica l 70 mL Tue Branch 05/20/22 at 2100, Routine ampicillin- 2021-08 No 3g 3 g, IV Un zeus sulbactam 0-05 10-05 Piggyback, ity of (UNASYN) 3 02:00: 03:32 ONCE, 1 [place] g in NaCl 00 :00 dose, On Medica l 0.9% (NS) Tue Branch 100 mL 05/20/22 at MINI-BAG 2100, Administer over 30 Minutes, 100 mL
Reas on for Anti-Infec tive: Documented Infection< br>Documen saw Infection Site: Other
O ther site: dental
Duration of Therapy: 7 days iopamidol 2021-08- No [id number] 70mL 70 mL, Univers (ISOVUE 0-05 10-05 101 Intravenou ity o f 370-500 mL) 02:00: 02:00 s, ONCE, 1 [place] injection 00 :00 dose, On Medica l 70 mL Tue Branch 05/20/22 at 2100, Routine ondansetron 2021-08 No 4mg 4 mg, Slow Univers (ZOFRAN 0-05 10-05 IV Push, ity of (PF)) 00:15: 01:16 ONCE, 1 [place] injection 4 00 :00 dose, On Medi kiran mg Tue Branch 05/20/22 at 1915, ANTOINETTE ondansetron 2021-08 No 4mg 4 mg, Slow Univers (ZOFRAN 0-05 10-05 IV Push, ity of (PF)) 00:15: 01:16 ONCE, 1 [place] injection 4 00 :00 dose, On Medi kiran mg Tue Branch 10/4/22 at 1915, ANTOINETTE ketorolac 2021-08 No 30mg 30 mg, Unive rs (TORADOL) 0-05 10-05 Slow IV ity of injection 00:00: 01:16 Push, [place] 30 mg 00 :00 ONCE, 1 Medical dose, On Branch Thu05/20/22 at 1900, Routine ketorolac 2021-08- No 30mg 30 mg, Unive rs (TORADOL) 0-05 10-05 Slow IV ity of injection 00:00: 01:16 Push, [place] 30 mg 00 :00 ONCE, 1 Medical dose, On Branch Thu05/20/22 at 1900, Routine OLANZapine 2021-08 Yes 2.5mg Take 2.5 Un zeus 5 mg tablet 0-04 mg by ity of 23:41: mouth [place] 15 daily. Medical Branch amoxicillin 2021-08 Yes [id number] 1{tbl} Take 1 Univers -clavulanat 0-04 101 tablet by ity of e 875-125 00:00: mouth [place] mg per 00 every 12 Medical tablet (twelve) Branch hours. ibuprofen 2021-08 Yes [id number] 800mg Take 1 Univers 800 mg 0-04 101 tablet by ity of tablet 00:00: mouth [place] 00 every 6 Medical (six) Branch hours as needed for Pain (scale 4-6). amoxicillin 2021-08- No [id number] 1{tbl} Take 1 Univers -clavulanat 0-04 10-07 101 tablet by it y of e 875-125 00:00: 00:00 mouth [place] mg per 00 :00 every 12 Medical tablet (twelve) Branch hours. ibuprofen 2021-08- No [id number] 800mg Take 1 Univers 800 mg 0-04 10-07 101 tablet by ity of tablet 00:00: 00:00 mouth [place] 00 :00 every 6 Medical (six) Branch hours as needed for Pain (scale 4-6). OLANZapine Yes 2.5mg Take 2.5 Un zeus 5 mg tablet 6-12 mg by ity of 04:20: mouth [place] 01 daily. Medical Branch OLANZapine Yes 2.5mg Take 2.5 Un zeus 5 mg tablet 6-12 mg by ity of 04:20: mouth [place] 01 daily. Medical Branch OLANZapine 2022-0 Yes 2.5mg Take 2.5 Un zeus 5 mg tablet 6-12 mg by ity of 04:20: mouth [place] 01 daily. Medical Branch OLANZapine 2021-0 Yes 2.5mg Take 2.5 Un zeus 5 mg tablet 6-12 mg by ity of 04:20: mouth [place] 01 daily. Medical Branch OLANZapine 2021-0 Yes 2.5mg Take 2.5 Un zeus 5 mg tablet 6-12 mg by ity of 04:20: mouth [place] 01 daily. Medical Branch OLANZapine 2021-0 Yes 2.5mg Take 2.5 Un zeus 5 mg tablet 6-12 mg by ity of 04:20: mouth [place] 01 daily. Medical Branch OLANZapine 2021-0 Yes 2.5mg Take 2.5 Un zeus 5 mg tablet 6-12 mg by ity of 04:20: mouth [place] 01 daily. Medical Branch acetaminoph 2021-0 Yes [id number] 650mg Take 2 Univers en 325 mg 6-10 tablets by ity of tablet 00:00: mouth [place] 00 every 6 Medical (six) Branch hours as needed for Pain (scale 1-3). ibuprofen 2021-0 Yes [id number] 600mg Take 1 Univers 600 mg 6-10 tablet by ity of tablet 00:00: mouth [place] 00 every 6 Medical (six) Branch hours as needed for Pain (scale 4-6). acetaminoph 2022-0 Yes [id number] 650mg Take 2 Univers en 325 mg 6-10 tablets by ity of tablet 00:00: mouth [place] 00 every 6 Medical (six) Branch hours as needed for Pain (scale 1-3). ibuprofen 2-0 Yes [id number] 600mg Take 1 Univers 600 mg 6-10 tablet by ity of tablet 00:00: mouth [place] 00 every 6 Medical (six) Branch hours as needed for Pain (scale 4-6). acetaminoph 2022-0 Yes [id number] 650mg Take 2 Univers en 325 mg 6-10 tablets by ity of tablet 00:00: mouth [place] 00 every 6 Medical (six) Branch hours as needed for Pain (scale 1-3). ibuprofen 2022-0 Yes [id number] 600mg Take 1 Univers 600 mg 6-10 tablet by ity of tablet 00:00: mouth [place] 00 every 6 Medical (six) Branch hours as needed for Pain (scale 4-6). acetaminoph 2022-0 Yes [id number] 650mg Take 2 Univers en 325 mg 6-10 tablets by ity of tablet 00:00: mouth [place] 00 every 6 Medical (six) Branch hours as needed for Pain (scale 1-3). ibuprofen 2022-0 Yes [id number] 600mg Take 1 Univers 600 mg 6-10 tablet by ity of tablet 00:00: mouth [place] 00 every 6 Medical (six) Branch hours as needed for Pain (scale 4-6). acetaminoph 2022-0 Yes [id number] 650mg Take 2 Univers en 325 mg 6-10 tablets by ity of tablet 00:00: mouth [place] 00 every 6 Medical (six) Branch hours as needed for Pain (scale 1-3). ibuprofen 2-0 Yes [id number] 600mg Take 1 Univers 600 mg 6-10 tablet by ity of tablet 00:00: mouth [place] 00 every 6 Medical (six) Branch hours as needed for Pain (scale 4-6). acetaminoph 2-0 Yes [id number] 650mg Take 2 Univers en 325 mg 6-10 tablets by ity of tablet 00:00: mouth [place] 00 every 6 Medical (six) Branch hours as needed for Pain (scale 1-3). ibuprofen 2-0 Yes [id number] 600mg Take 1 Univers 600 mg 6-10 tablet by ity of tablet 00:00: mouth [place] 00 every 6 Medical (six) Branch hours as needed for Pain (scale 4-6). acetaminoph 2022-0 Yes [id number] 650mg Take 2 Univers en 325 mg 6-10 tablets by ity of tablet 00:00: mouth [place] 00 every 6 Medical (six) Branch hours as needed for Pain (scale 1-3). ibuprofen 2022-0 Yes [id number] 600mg Take 1 Univers 600 mg 6-10 tablet by ity of tablet 00:00: mouth [place] 00 every 6 Medical (six) Branch hours as needed for Pain (scale 4-6). acetaminoph 2022-0 Yes [id number] 650mg Take 2 Univers en 325 mg 6-10 tablets by ity of tablet 00:00: mouth [place] 00 every 6 Medical (six) Branch hours as needed for Pain (scale 1-3). ibuprofen 2022-0 Yes [id number] 600mg Take 1 Univers 600 mg 6-10 tablet by ity of tablet 00:00: mouth [place] 00 every 6 Medical (six) Branch hours as needed for Pain (scale 4-6). acetaminoph 2021- No [id number] 650mg Take 2 Univers en 325 mg 6-10 10-07 tablets by ity of tablet 00:00: 00:00 mouth [place] 00 :00 every 6 Medical (six) Branch hours as needed for Pain (scale 1-3). ibuprofen 2021- No [id number] 600mg Take 1 Univers 600 mg 6-10 10-07 tablet by ity of tablet 00:00: 00:00 mouth [place] 00 :00 every 6 Medical (six) Branch hours as needed for Pain (scale 4-6). cyclobenzap 2020-08 No 1mg rine 5 mg 2-14 tablet 00:00: 00 azithromyci 0 No 2mg n 500 mg 9-17 tablet 00:00: 00 fluoxetine 2018-0 No 1mg 20 mg 9-09 tablet 00:00: 00 prednisone 2019-0 No mg 10 mg 9-09 tablet 00:00: 00 Dose 2019-0 No Unknown 9-09 00:00: 00 Dose 2018-0 No Unknown 9-09 00:00: 00 Zofran 4 mg 0 No 1mg tablet 8- 00:00: 00 Vital Signs Vital Name Observation Time Observation Value Comments Source Systolic blood 2022-06-03 15:14:00 126 mm[Hg] [facility] Diastolic blood 2022-06-03 15:14:00 81 mm[Hg] [facility] Heart rate 2022-06-03 15:14:00 77 /min [facility] Body temperature 2022-06-03 15:14:00 37.22 Xin [facility] Body height 2022-06-03 15:14:00 157.5 cm [facility] Body weight 2022-06-03 15:14:00 56.246 kg [facility] BMI 2022-06-03 15:14:00 22.68 kg/m2 [facility] Systolic blood 2022-05-23 13:01:00 133 mm[Hg] [facility] Diastolic blood 2022-05-23 13:01:00 89 mm[Hg] Unive [facility] pressure [place] [facility] Heart rate 2022-05-23 13:01:00 88 /min [facility] [place] [facility] Body temperature 2022-05-23 13:01:00 36.89 Xin [facility] [place] [facility] Respiratory rate 2022-05-23 13:01:00 16 /min [facility] [place] [facility] Oxygen saturation in 2022-05-23 13:01:00 99 /min University of Arterial blood by [facility] kiran Pulse oximetry Branch Body weight 2022-05-20 23:15:00 55.792 kg [facility] [place] [facility] BMI 2022-05-20 23:15:00 22.50 kg/m2 [facility] [place] [facility] Systolic blood 2022-05-21 16:45:00 145 mm[Hg] [facility] pressure [place] [facility] Diastolic blood 2022-05-21 16:45:00 83 mm[Hg] Unive rs[facility] pressure [place] [facility] Respiratory rate 2022-05-21 16:45:00 16 /min [facility] [place] [facility] Oxygen saturation in 2022-05-21 16:45:00 100 /min University of Arterial blood by [facility] [place] Pulse oximetry Branch Heart rate 2022-05-21 16:20:00 85 /min [facility] [place] [facility] Body temperature 2022-05-21 16:20:00 36.39 Xin [facility] [place] [facility] Body weight 2022-05-20 23:15:00 55.792 kg [facility] [place] [facility] BMI 2022-05-20 23:15:00 22.50 kg/m2 [facility] [place] [facility] Systolic blood 2022-05-08 19:04:00 148 mm[Hg] [facility] [place] [facility] Diastolic blood 2022-05-08 19:04:00 89 mm[Hg] Unive rsity [facility] pressure [place] [facility] Heart rate 2022-05-08 19:04:00 83 /min [facility] [place] [facility] Body temperature 2022-05-08 19:04:00 37.06 Xin [facility] [place] [facility] Body height 2022-05-08 19:04:00 157.5 cm [facility] [place] [facility] Body weight 2022-05-08 19:04:00 55.656 kg Universi ty [facility] [place] BMI 2022-05-08 19:04:00 22.44 kg/m2 Universi ty [facility] Oxygen saturation in 2022-05-08 19:04:00 100 /min [facility] Arterial blood by [facility] [place] Pulse oximetry Branch Systolic blood 2022-03-31 16:36:00 126 mm[Hg] Univer sity of pressure [facility] Diastolic blood 2022-03-31 16:36:00 86 mm[Hg] Unive rsity of [facility] Heart rate 2022-03-31 16:36:00 76 /min Universi ty [facility] Body temperature 2022-03-31 16:36:00 36.22 Xin [facility] 2022-03-31 16:36:00 16 /min [facility] Body height 2022-03-31 16:36:00 157.5 cm Universi ty [facility] Body weight 2022-03-31 16:36:00 55.702 kg Universi ty [facility] BMI 2022-03-31 16:36:00 22.46 kg/m2 [facility] BP Systolic 2022-07-14 11:21:00 123 mm[Hg] BP Diastolic 2022-07-14 11:21:00 82 mm[Hg] Weight Measured 2022-07-14 11:21:00 130.00 pounds Height Measured 2022-07-14 11:21:00 62.50 inches Body Temperature 2022-07-14 11:21:00 98.20 degrees Heart Rate 2022-07-14 11:21:00 93.00 /min Respiratory Rate 2022-07-14 11:21:00 18.00 /min BP Systolic 2021-07-30 13:35:00 114 mm[Hg] BP Diastolic 2021-07-30 13:35:00 77 mm[Hg] Weight Measured 2021-07-30 13:35:00 120.80 pounds Height Measured 2021-07-30 13:35:00 62.50 inches Body Temperature 2021-07-30 13:35:00 98.40 degrees Heart Rate 2021-07-30 13:35:00 83.00 /min Respiratory Rate 2021-07-30 13:35:00 16.00 /min BP Systolic 2019-04-28 08:29:00 120 mm[Hg] BP Diastolic 2019-04-28 08:29:00 77 mm[Hg] Weight Measured 2019-04-28 08:29:00 153.00 pounds Height Measured 2019-04-28 08:29:00 62.50 inches Body Temperature 2019-04-28 08:29:00 98.80 degrees Heart Rate 2019-04-28 08:29:00 70.00 /min Respiratory Rate 2019-04-28 08:29:00 16.00 /min BP Systolic 2019-04-25 12:04:00 125 mm[Hg] BP Diastolic 2019-04-25 12:04:00 83 mm[Hg] Weight Measured 2019-04-25 12:04:00 156.00 pounds Height Measured 2019-04-25 12:04:00 62.50 inches Body Temperature 2019-04-25 12:04:00 98.70 degrees Heart Rate 2019-04-25 12:04:00 87.00 /min Respiratory Rate 2019-04-25 12:04:00 18.00 /min BP Systolic 2019-04-06 12:17:00 116 mm[Hg] BP Diastolic 2019-04-06 12:17:00 79 mm[Hg] Weight Measured 2019-04-06 12:17:00 158.20 pounds Height Measured 2019-04-06 12:17:00 62.50 inches Body Temperature 2019-04-06 12:17:00 99.00 degrees Heart Rate 2019-04-06 12:17:00 88.00 /min Respiratory Rate 2019-04-06 12:17:00 16.00 /min Procedures Procedure Date / Time Performing Clinician Source Performed CBC WITH DIFF 2022-05-23 10:24:00 Kennedy Young [facility] CBC WITH DIFF 2022-05-22 10:42:00 Kennedy Young [facility] INCISION AND DRAINAGE 2022-05-21 15:35:00 Suresh Bonilla [facility] ORAL CAVITY [facility] TOOTH EXTRACTION 2022-05-21 15:35:00 Suresh Bonilla [facility] INCISION AND DRAINAGE 2022-05-21 15:35:00 Suresh Bonilla [facility] ORAL CAVITY [facility] TOOTH EXTRACTION 2022-05-21 15:35:00 Suresh Bonilla [facility] CBC WITH DIFF 2022-05-21 09:58:00 Kennedy Young [facility] CBC WITH DIFF 2022-05-21 09:58:00 Kennedy Young [facility] CT 2022-05-21 01:00:55 Ibikunle, Folusho F [facility] MAXILLOFACIAL/MANDIBLE Medical B ranch W CONTRAST CT 2022-05-21 01:00:55 Ibikunle, Folusho F [facility] MAXILLOFACIAL/MANDIBLE Medical B ranch W CONTRAST COMP. METABOLIC PANEL 2022-05-21 00:37:00 IbikLandon anandusho F [facility] [place] ([id number]) Medical Branch CBC WITH DIFF 2022-05-21 00:37:[address] [facility] Medical [place] COMP. METABOLIC PANEL 2022-05-21 00:37:00 Ibikunzen Folusho F [facility] [place] ([id number]) Medical Branch CBC WITH DIFF 2022-05-21 00:37:00 Ibikunle Folusho F [facility] CONSENT/REFUSAL FOR 2022-05-20 23:16:33 Doctor Unassigned, No [facility] [place] DIAGNOSIS AND Name Medical Branch TREATMENT CONSENT/REFUSAL FOR 2022-05-20 23:16:33 Doctor Unassigned, No [facility] [place] DIAGNOSIS AND Name Medical Branch TREATMENT DISCLOSURE AND 2022-05-08 05:01:00 Doctor Unassigned, No [facility] [place] CONSENT, MEDICAL AND Name Medical Bra [facility] SURGICAL PROCEDURES REFERRAL- 2022-04-24 05:01:00 Doctor Unassigned, No [facility] [place] REQUEST/RESPONSE Name Medical Branch Plan of Care Planned Activity Planned Date Details Comments Source Goal Plan of Care Note [code = 01794-3] Goal Plan of Care Note [code = 87120-0] Goal Plan of Care Note [code = 71080-3] Goal Plan of Care Note [code = 48108-2] Goal Plan of Care Note [code = 15025-1] Goal Plan of Care Note [code = 33672-7] Goal Plan of Care Note [code = 48655-9] Goal Plan of Care Note [code = 83064-7] Goal Plan of Care Note [code = 43999-9] Goal Plan of Care Note [code = 74278-4] Goal Plan of Care Note [code = 74958-3] Goal Plan of Care Note [code = 75618-2] Goal Plan of Care Note [code = 38881-8] Goal Plan of Care Note [code = 45361-9] Goal Plan of Care Note [code = 16669-8] Goal Plan of Care Note [code = 22090-9] Goal Plan of Care Note [code = 36602-4] Goal Plan of Care Note [code = 72603-2] Goal Plan of Care Note [code = 44974-9] Goal Plan of Care Note [code = 62230-1] Goal Plan of Care Note [code = 31922-9] Encounters Start End Encounter Admission Attending Care Care Encounter Source Date/Time Date/Time Type Type Clinicians Facility Department ID 2021-12-24 Outpatient R JOSIANE [facility] [id number] Univers 13:43:15 [facility] [place] [facility] 2021-12-23 Outpatient Shari JOSHUA [facility] [id number] Univers 07:21:46 [facility] [place] [facility] 2022-07-18 2022-07-18 Nurse KEYUR Hadley 1.2.840.114 [id number] Univers 00:00:00 00:00:00 Triage Katy BRANCH 350.1.13.10 [facility] 4.2.7.2.686 Kai as [phone] [facility] 019 Branch 2022-07-18 2022-07-18 Telephone UNA Davis 1.2.840.114 [id number] Univers 00:00:00 00:00:00 [facility] 350.1.13.10 i [facility] [place] [id number] Medi kiran 113 Branch 2022-07-14 2022-07-14 Outpatient [facility] [id number] Yamel Goodrich 11:05:24 11:05:24 1128 F Compa 2022-07-14 2022-07-14 Outpatient [id number] 00:00:00 00:00:00 Visit [id number] 2022-07-01 2022-07-01 Patient ALEXANDRIA Skinner 1.2.840.114 [id number] Univers 00:00:00 00:00:00 Outreach Simeon STYLES 350.1.13.10 ity [place] [id number] [facility] 403 Branch 2022-06-16 2022-06-16 Patient ALEXANDRIA Skinner 1.2.840.114 [id number] Univers 00:00:00 00:00:00 Outreach Simeon STYLES 350.1.13.10 [place] [id number] [facility] 403 Branch 2022-06-03 2022-06-03 Office UNA Bonilla [id number] [id number] Univers 10:00:00 10:23:42 Visit Suresh TRONCOSO 350.1.13.10 ity of CL[place] [id number] [facility] [address] [place] 2022-06-03 2022-06-03 Outpatient Shari BONILLA [facility] [id number] Univers 10:00:00 10:00:00 SURESH childress [facility] 2022-05-26 2022-05-26 [facility] [id number] Univers 00:00:00 00:00:00 Suresh LOYOLA 350.1.13.10 ity of [place] [id number] [facility] [address] [place] 2022-05-20 2022-05-23 Outpatient X CHAD [facility] [id number] Univers 18:17:00 13:28:00 SURESH childress [facility] 2022-05-20 2022-05-23 Emergency IbCristy quintanilla 1.2. 840.114 [id number] Univers 18:17:00 13:28:00 Suresh Bonilla 350.1.13.10 ity of [facility] 4.2.7.2.686 Kai as [id number] [facility] 097 Branch 2022-05-23 2022-05-23 Transition BenitezALEXANDRIA diaz 1.2.840.114 [id number] Univers 00:00:00 00:00:00 of Care Peggy STYLES 350.1.13.10 ity [facility] [place] [id number] [facility] 403 Branch 2022-05-21 2022-05-21 Surgery MACIEL Bonilla 1.2.840.114 [id number] Univers 10:24:00 11:48:00 Suresh BRANCH 350.1.13.10 ity of [facility] 4.2.7.2.686 [place] [id number] [facility] 103 Branch 2022-05-20 2022-05-20 Telephone Mehul [facility] 1.2.840.114 [id number] Univers 00:00:00 00:00:00 Chau LOYOLA 350.1.13.10 i ty of [facility] [place] [id number] [facility] 199 Branch 2022-05-08 2022-05-08 Office UNA Carver 1.2.840.114 [id number] Univers 14:00:00 14:30:00 Visit Chau [facility] 350.1.13.10 i ty of [facility] 4[place].2.[place] [id number] [facility] 199 Branch 2022-05-08 2022-05-08 Outpatient R MEHUL [facility] [id number] Univers 14:00:00 14:00:00 CHAU childress of [facility] 2022-05-08 2022-05-08 Orders Doctor BAER 1.2.840.114 [id number] Univers 00:00:00 00:00:00 Only Unassigned, SARINA 350.1.13.10 ity of [place] [facility] 4.2.7.2.686 Kai as [id number] [address] 2022-04-29 2022-04-29 Outpatient Shari BONILLA [facility] [id number] Univers 10:00:00 10:00:00 SURESH ity [facility] 2022-04-24 2022-04-24 Orders Doctor KEYUR 1.2.840.114 [id number] Univers 00:00:00 00:00:00 Only Unassigned, SARINA 350.1.13.10 ity [place] [facility] 4.2.7.2.686 Kai as [id number] [address] 2022-03-31 2022-03-31 Office UNA Davis 1.2.182.218 [id number] Univers 11:15:00 11:48:34 Visit [facility] 350.1.13.10 i ty [place] [id number] [address] 2022-03-31 2022-03-31 Outpatient R RYAN [facility] [id number] Univers 11:15:00 11:48:34 [facility] 2022-03-31 2022-03-31 [facility] [id number] Univers 11:15:00 11:15:00 [facility] 2022-01-25 2022-01-25 Telephone UNA Joshua 1.2.840.114 [id number] Univers 00:00:00 00:00:00 [facility] 350.1.13.10 i ty of [facility] 4[place].2.[place] [id number] [address] 2022-01-23 2022-01-24 Outpatient R JOSIANE [facility] [id number] Univers 05:56:00 16:20:00 HARDY ity [facility] 2022-01-23 2022-01-24 Hospital MACIEL Joshua 1.2.840.114 [id number] Univers 05:56:00 16:20:00 Encounter [facility] 350.1.13.10 ity of [facility] 4.2.7.2.686 [place] as [id number] [facility] 092 Branch 2022-01-23 2022-01-23 Surgery MACIEL Joshua 1.2.840.114 [id number] Univers 07:00:00 12:15:00 Hardyshay BRANCH 350.1.13.10 it y of [facility] 4.2.7.2.686 [place] as [id number] [facility] 103 Branch 2022-01-23 2022-01-23 Orders Doctor KEYUR 1.2.840.114 [id number] Univers 00:00:00 00:00:00 Only Unassigned, SARINA 350.1.13.10 ity of [facility] 4.2.7.2.686 [place] [id number] [facility] 009 Branch 2022-01-21 2022-01-21 Telephone Pgy3 UNIVERSIT 1.2.840.114 [id number] Univers 00:00:00 00:00:00 Y HEALTH 350.1.13.10 i ty of [facility] 4.2.7.2.[place] [id number] [facility] 113 Branch 2022-01-20 2022-01-20 Telephone KEYUR Locke 1.2.840.114 [id number] Univers 00:00:00 00:00:00 Arianna BRANCH 350.1.13.10 it y of [facility] 4.2.7.2.686 [place] [id number] [facility] 013 Branch 2022-01-15 2022-01-15 Outpatient R JEWEL [facility] [id number] Univers 07:44:45 23:59:00 OTIS childress o f [facility] 2022-01-15 2022-01-15 Outpatient Shari HOLLOWAY [facility] [id number] Univers 07:43:28 07:43:28 OTIS childress o f [facility] 2022-01-14 2022-01-14 Laboratory Only, Adc Test [facility] 1.2.840. 114 [id number] Univers 08:45:00 09:00:00 Only Otis Holloway 350.1.13.10 ity of [place] 4.2.7.2.[place] [id number] [facility] 353 Branch 2022-01-14 2022-01-14 Outpatient R JEWEL, [facility] [id number] Univers 08:45:00 08:45:00 OTIS childress o f [facility] 2022-01-10 2022-01-10 Patient Melanie Lou 1.2.840.114 [id number] Univers 00:00:00 00:00:00 Outreach E STEPHANI 350.1.13.10 i ty of [place] [id number] [facility] 403 Branch 2021-12-27 2021-12-27 Outpatient Shari HERRON [facility] [id number] Univers 13:00:00 13:00:00 [facility] 2021-12-27 2021-12-27 Outpatient Shari HERRON [facility] [id number] Univers 13:00:00 13:00:00 [facility] 2021-12-27 2021-12-27 Outpatient R JEWEL, [facility] [id number] Univers 09:00:00 09:00:00 OTIS delgado [facility] [place] [facility] 2021-12-25 2021-12-25 Office Jewel, [facility] 1.2.840.114 [id number] Univers 10:00:00 10:29:11 Visit Otis LICONA 350.1.13.10 ity mike [place] [facility] [id number] Wy dical [facility] 059 Branch [facility] 2021-12-25 2021-12-25 Outpatient R JEWEL, [facility] [id number] Univers 10:00:00 10:29:11 OTIS delgado [facility] [place] [facility] 2021-12-25 2021-12-25 Outpatient R JEWEL, [facility] [id number] Univers 10:00:00 10:00:00 OTIS delgado [facility] [place] [facility] 2021-12-22 2021-12-22 Prep For KEYUR Cantu 1.2.849.992 [id number] Univers 00:00:00 00:00:00 Surgery Eliz BRANCH 350.1.13.10 it y of [facility] 4.2.7.2.686 [place] [id number] [facility] 013 Branch 2021-12-22 2021-12-22 Case UNA Cantu 1.2.840.114 [id number] Univers 00:00:00 00:00:00 Management Eliz Olvera [facility] 350.1.13.10 ity of [facility] 4.2.7.2.[place] [id number] [facility] 113 Branch 2021-12-11 2021-12-11 Outpatient R JOSIANE, [facility] [id number] Univers 15:30:00 15:30:00 ANTONY [facility] 2021-12-09 2021-12-09 Laboratory Only, Adc Test [facility] 1.2.840. 114 [id number] Univers 10:45:00 11:00:00 Only [facility] [place] [id number] [facility] 353 Branch 2021-12-09 2021-12-09 [facility] [id number] Univers 10:45:00 10:45:00 SHAWN [facility] 2021-12-09 2021-12-09 [facility] [id number] Univers 10:45:00 10:45:00 SHAWN [facility] 2021-12-09 2021-12-09 Telephone KEYUR Gonzalez 1.2.318.790 [id number] Univers 00:00:00 00:00:00 Theodorachana MURRIETAY 350.1.13.10 it y of [facility] 4.2.7.2.686 Kai as [id number] [facility] 013 Branch 2021-12-06 2021-12-06 Emergency X KAREN, [facility] ERT [id number] Univers 15:32:00 17:11:00 CYNISE ity [facility] 2021-12-06 2021-12-06 Emergency Karen, TRAUMA 1.2.234.916 [id number] Univers 15:32:00 17:11:00 Cynise CENTER 350.1.13.10 [place] [id number] [facility] kiran 014 Branch 2021-12-06 2021-12-06 Emergency X KAREN, [facility] ERT [id number] Univers 15:32:00 17:11:00 CYNISE [facility] 2021-12-06 2021-12-06 Emergency X KAREN, [facility] ERT [id number] Univers 15:32:00 15:32:00 [facility] 2021-12-06 2021-12-06 Office Alejandro Benites [facility] 1.2.840.11 [id number] Univers 13:10:00 13:40:00 Visit Unknown, Attending PRIMARY 350.1.13.10 it[place] [id number] Wy dicme [address] [place] 2021-12-06 2021-12-06 Outpatient R UNKNOWN, [facility] [id number] Univers 13:10:00 13:10:00 ATTENDING [facility] 2021-12-06 2021-12-06 Outpatient R UNKNOWN, [facility] [id number] Univers 13:10:00 13:10:00 ATTENDING [facility] 2021-12-06 2021-12-06 Outpatient R BAL, [facility] [id number] Univers 13:10:00 13:10:00 SNO [facility] 2021-12-06 2021-12-06 Case Acosta [facility] [id number] [id number] Univers 00:00:00 00:00:00 Management Montse M PRIMARY 350.1.13.10 it[place] [id number] Wy dical [address] 2021-12-05 2021-12-05 Outpatient Leonid CORTES [facility] [id number] [place] 04:22:00 04:22:00 da [facility] [facility] 2021-12-05 2021-12-05 Case Josiane [facility] 1.2.840.114 [id number] Univers 00:00:00 00:00:00 Management [facility] 350.1.13.10 ity of [place] [phone] [facility] [address] OFFICE BUILDING 2021-12-05 2021-12-05 Telephone KEYUR Blanco 1.2.840.114 [id number] Univers 00:00:00 00:00:00 Jody BRANCH 350.1.13.10 it y of [facility] 4.2.7.2.686 [place] [phone] [facility] [address] [place] 2021-11-29 2021-11-29 Outpatient R SULEIMAN [facility] [id number] Univers 13:00:00 13:00:00 [facility] 2021-11-28 2021-11-28 Prep For KEYUR Blanco 1.2.721.290 [id number] Univers 00:00:00 00:00:00 Surgery Jody BRANCH 350.1.13.10 it y of [facility] 4.2.7.2.686 [place] as [id number] [address] 2021-11-28 2021-11-28 Telephone Gudeliaaníbal UNA 1.2.840.114 [id number] Univers 00:00:00 00:00:00 [facility] 350.1.13.10 i ty of [facility] [place] [phone] [facility] [address] 2021-11-22 2021-11-22 Outpatient R MIGUEL [facility] [id number] Univers 09:07:00 16:38:00 EMILY ity [facility] 2021-11-22 2021-11-22 Hospital MACIEL Rivera 1.2.840.114 [id number] Univers 09:07:00 16:38:00 Encounter Emily BRANCH 350.1.13.10 ity [facility] 4.2.7.2.686 [place] [phone] [facility] [address] [place] 2021-11-22 2021-11-22 Surgery MACIEL Rivera 1.2.840.114 [id number] Univers 11:05:00 13:43:00 Emily BRANCH 350.1.13.10 it y of HOSPITAL 4.2.7.2.686 [place] [id number] [facility] [address] 2021-11-22 2021-11-22 Telephone Josiane [facility] 1.2.939.518 [id number] Univers 00:00:00 00:00:00 [facility] 350.1.13.10 it y of [facility] [place] [facility] - [phone] [facility] [address] 2021-11-21 2021-11-21 [facility] [id number] Univers 13:15:00 13:18:56 EMILY childress [facility] 2021-11-21 2021-11-21 Laboratory Only, [facility] Test UNIVERSIT 1.2.84 0.114 [id number] Univers 13:15:00 13:18:56 Only Emily [facility] 350.1.13.10 ity of CL[place] [id number] [facility] [address] 2021-11-21 2021-11-21 [facility] 1038 [id number] Univers 09:00:00 09:00:00 EMILY lucasy [facility] 2021-11-18 2021-11-18 Emergency X JULIA, [facility] ERT [id number] Univers 11:41:00 17:07:00 SABINO ity [facility] 2021-11-18 2021-11-18 Emergency Behzadi, TRAUMA 1.2.840.114 [id number] Univers 11:41:00 17:07:00 Sabino A CENTER 350.1.13.10 [place] [id number] [facility] [address] 2021-11-12 2021-11-12 Office Pgy3 UNIVERSIT 1.2.468.919 [id number] Univers 13:00:00 15:18:33 Visit Ryan Felisa Anat HEALTH 350.1.13.10 ity of CL[place] [id number] [facility] [address] 2021-11-12 2021-11-12 Outpatient Shari DAVIS [facility] [id number] Univers 13:00:00 15:18:33 [facility] 2021-11-12 2021-11-12 Outpatient Shari DAVIS [facility] [id number] Univers 13:00:00 13:00:00 [facility] 2021-11-12 2021-11-12 Outpatient Shari DAVIS [facility] [id number] Univers 13:00:00 13:00:00 [facility] 2021-11-12 2021-11-12 Orders Doctor KEYUR 1.2.840.114 [id number] Univers 00:00:00 00:00:00 Only Unassigned, SARINA 350.1.13.10 ity of [place] [facility] 4.2.7.2.686 Kai as [phone] [address] 2021-10-29 2021-10-29 Telephone KAMALJIT Davis 1.2.840.114 [id number] Univers 00:00:00 00:00:00 [facility] 350.1.13.10 i ty of [facility] [place] [id number] [facility] [address] 2021-10-24 2021-10-24 Outpatient R CASTILLO, [facility] [id number] Univers 13:15:00 15:47:39 [facility] 2021-10-24 2021-10-24 Outpatient R CASTILLO, [facility] [id number] Univers 13:15:00 15:47:39 FRANKLYNGil childress [facility] 2021-10-24 2021-10-24 Outpatient R CASTILLO, [facility] [id number] Univers 13:15:00 15:47:39 FRANKLYN childress [facility] 2021-10-24 2021-10-24 Office Pgy2 UNIVERSIT 1.2.598.141 [id number] Univers 13:15:00 15:47:39 [facility] 350.1.13.10 ity of Frank[place] Castillo [facility] 4.2.7.2.686 [place] [id number] [address] 2021-10-24 2021-10-24 [facility] [id number] Univers 13:15:00 13:15:00 FRANKLYN [facility] 2021-10-24 2021-10-24 Telephone OttJack UNIVERSIT 1.2.840.11 [id number] Univers 00:00:00 00:00:00 Y HEALTH 350.1.13.10 i ty [place] [id number] [address] 2021-10-09 2021-10-10 Outpatient X [facility] [id number] Univers 13:40:00 14:24:00 [facility] 2021-10-09 2021-10-10 Outpatient X [facility] [id number] Univers 13:40:00 14:24:00 [facility] 2021-10-09 2021-10-10 Emergency Alma Rosa Sethi 1.2.840.114 [id number] Univers 13:40:00 14:24:00 Marino Wills 350.1.13.10 [facility] 4...2.686 [place] [id number] [address] 2021-10-10 2021-10-10 Telephone Catalina Cm [facility] 1.2.840.114 [id number] Univers 00:00:00 00:00:00 Y HEALTH 350.1.13.10 i ty [place] [id number] [address] 2021-10-10 2021-10-[address] 1.2.840.114 [id number] Univers 00:00:00 00:00:00 Alm aRosa 350.1.13.10 it y [facility] 4.2.7.2.686 [place] [id number] [address] 2021-07-15 2021-07-15 Orders Doctor BAER 1.2.840.114 [id number] Univers 00:00:00 00:00:00 Only Unassigned, SARINA 350.1.13.10 ity of [place] [facility] 4.2.7.2.686 [place] [phone] [facility] [address] 2021-07-02 2021-07-02 Telephone Pcp, [facility] 1.2.338.874 [id number] Univers 00:00:00 00:00:00 Patient NIR 350.1.13.10 i ty of Does Not [facility] 4.[place].2.[place] A [phone] [facility] [address] 2020-02-22 2020-02-22 Emergency Justo K [facility] 1.2.840.114 [id number] 12:29:09 15:00:00 Willow L[place] 350.1.13.10 [place] 4.2.7.2.686 [place] [id number] 2020-02-22 2020-02-22 Emergency Curt Kemp [facility] 1.2.840.114 [id number] Univers 12:29:09 15:00:00 Willow Licona 350.1.13.10 i ty of [place] 4.2.7.2.686 [facility] [phone] [facility] [address] 2020-02-22 2020-02-22 Emergency X Curt KEMP [facility] ERT [id number] Univers 12:29:09 12:29:09 ity of [facility] 2020-01-30 2020-01-30 Outpatient Lezak_Keithyla [facility] 104 130-202 [place] 08:36:00 08:36:00 [id number] [facility] 2020-01-28 2020-01-28 Outpatient Lezak_Kayla [facility] 104 130-202 [place] 01:01:00 01:01:00 [id number] [facility] 2019-12-02 2019-12-02 Outpatient Lezak_Kayla [facility] 104 130-202 [place] 11:44:00 11:44:00 [id number] [facility] 2019-01-07 2019-01-07 Outpatient E JEFERSONI, [facility] [id number] [place] 10:23:00 12:27:00 PHYLICIA [facility] 2018-12-04 2018-12-04 Outpatient E CIDNI [facility] [id number] [place] 10:20:00 15:57:00 [facility] 2018-11-11 2018-11-11 Outpatient E GILBERT, [facility] [id number] [place] 04:05:00 06:00:00 MARKELL [facility] 2018-10-12 2018-10-12 Outpatient E PAULINE REDDY [facility] [id number] [place] 06:24:00 08:08:00 [facility] 2018-09-30 2018-09-30 Outpatient E MING, [facility] [id number] [place] 13:45:00 14:12:00 [facility] 2018-09-04 2018-09-04 Outpatient E MING [facility] [id number] [place] 17:32:00 18:30:00 [facility] 2018-08-19 2018-08-19 Outpatient E HANY WILL [facility] [id number] [place] 08:43:00 10:15:00 [facility] 2018-08-08 2018-08-08 Outpatient E CHAMBERS, [facility] [id number] [place] 13:34:00 16:43:00 [facility] Test Description Test Time Test Comments Results Result Comments Source CBC WITH DIFF 2022-05-23 10:42:11 Test Item Value Reference Range Interpretation Comme nts WBC (test code = 6690-2) See_Comment [A utomated message] The system which ge nerated this result transmit saw reference range: 4.30 - 1 1.10 10*3/?L. The reference r jess was not used to interpr et this result as normal/abnor mal. RBC (test code = 789-8) See_Comment L [Au tomated message] The system which ge nerated this result transmit saw reference range: 3.93 - 5 .25 10*6/?L. The reference r jess was not used to interpr et this result as normal/abnor mal. HGB (test code = 718-7) 11.4 g/dL 11.6-15 L HCT (test code = 4544-3) 34.2 % 35.7-45.2 L MCV (test code = 787-2) 92.7 fL 80.6-95.5 MCH (test code = 785-6) 30.9 pg 25.9-32.8 MCHC (test code = 786-4) 33.3 g/dL 31.6-35.1 RDW-SD (test code = 33576-5) 45.3 fL 39-49.9 RDW-CV (test code = 788-0) 13.3 % 12-15.5 PLT (test code = 777-3) See_Comment [Au tomated message] The system which ge nerated this result transmit saw reference range: 166 - 35 8 10*3/?L. The reference range was not used to interpret th is result as normal/abnormal . MPV (test code = 81240-3) 10.5 fL 9.5-12.9 NRBC/100 WBC (test code = See_Comment [ Automated message] The 6285687492) system which ge nerated this result transmit saw reference range: 0.0 - 10 .0 /100 WBCs. The reference r jess was not used to interpr et this result as normal/abnor mal. NRBC x10^3 (test code = See_Comment [Au tomated message] The 8654638432) system which [employer] nerated this result transmit saw reference range: 10*3/?L. The reference range was not u sed to interpret this result as normal/abnormal . GRAN MAT (NEUT) % (test code 37.8 % = 770-8) IMM GRAN % (test code = 0.50 % 6109737677) LYMPH % (test code = 736-9) 51.2 % MONO % (test code = 5905-5) 8.1 % EOS % (test code = 713-8) 1.9 % BASO % (test code = 706-2) 0.5 % GRAN MAT x10^3(ANC) (test 2.43 10*3/uL 1.88-7.09 code = 9102087102) IMM GRAN x10^3 (test code = 0.03 10*3/uL 0-0.06 3392280278) LYMPH x10^3 (test code = 3.29 10*3/uL 1.32-3.29 731-0) MONO x10^3 (test code = 0.52 10*3/uL 0.33-0.92 742-7) EOS x10^3 (test code = 0.12 10*3/uL 0.03-0.39 711-2) BASO x10^3 (test code = 0.03 10*3/uL 0.01-0.07 704-7) Lab Interpretation (test Abnormal code = 95047-9) [facility] WITH [id number] 10:58:56 Test Item Value Reference Range Interpretation Comments WBC (test code = See_Comment H [Automated 6690-2) message] The sy stem which generated this result transmitted reference range : 4.30 - 11.10 10*3/?L. The reference range was not used to interpret this result as normal/abnormal . RBC (test code = See_Comment L [Automated 789-8) message] The sy stem which generated this result transmitted reference range : 3.93 - 5.25 10*6/?L. The reference range was not used to interpret this result as normal/abnormal . HGB (test code = 10.8 g/dL 11.6-15 L 718-7) HCT (test code = 31.8 % 35.7-45.2 L 4544-3) MCV (test code = 93.5 fL 80.6-95.5 787-2) MCH (test code = 31.8 pg 25.9-32.8 785-6) MCHC (test code = 34.0 g/dL 31.6-35.1 786-4) RDW-SD (test code = 46.4 fL 39-49.9 70019-3) RDW-CV (test code = 13.7 % 12-15.5 788-0) PLT (test code = See_Comment [Automated 777-3) message] The sy stem which generated this result transmitted reference range : 166 - 358 10*3/ ?L. The reference r jess was not used to interpret this result as normal/abnormal . MPV (test code = 11.5 fL 9.5-12.9 97347-8) NRBC/100 WBC (test See_Comment [Automat ed code = 0115838170) message] The system which generated this result transmitted reference range : 0.0 - 10.0 /100 WBCs. The refer ence range was not u sed to interpret th is result as normal/abnormal . NRBC x10^3 (test code See_Comment [Auto mated = 0224247358) message] The s ystem which generated this result transmitted reference range : 10*3/?L. The reference range was not used to interpret this result as normal/abnormal . GRAN MAT (NEUT) % 69.6 % (test code = 770-8) IMM GRAN % (test code 0.20 % = 9492775518) LYMPH % (test code = 22.6 % 736-9) MONO % (test code = 7.3 % 5905-5) EOS % (test code = 0.1 % 713-8) BASO % (test code = 0.2 % 706-2) GRAN MAT x10^3(ANC) 8.81 10*3/uL 1.88-7.09 H (test code = 6170801311) IMM GRAN x10^3 (test 0.03 10*3/uL 0-0.06 code = 5561284379) LYMPH x10^3 (test code 2.86 10*3/uL 1.32-3.29 = 731-0) MONO x10^3 (test code 0.93 10*3/uL 0.33-0.92 H = 742-7) EOS x10^3 (test code = 0.03-0.39 L 711-2) BASO x10^3 (test code 0.01-0.07 = 704-7) Lab Interpretation Abnormal (test code = 61055-3) [facility] ([id number])2022-05-21 01:01:28 Test Item Value Reference Range Interpretation Comments NA (test code = 139 mmol/L 135-145 3206104986) K (test code = 3.6 mmol/L 3.5-5 5917535452) CL (test code = 106 mmol/L 98-108 0158201808) CO2 TOTAL (test code = 24 mmol/L 23-31 9599720814) AGAP (test code = 2-16 7334711195) BUN (test code = 10 mg/dL 7-23 3963438654) GLUCOSE (test code = 96 mg/dL 70-110 5929100167) CREATININE (test code = 0.44 mg/dL 0.5-1.04 L 4751705141) TOTAL BILI (test code = 1.0 mg/dL 0.1-1.6 2776379816) CALCIUM (test code = 9.0 mg/dL 8.6-10.6 2565174183) T PROTEIN (test code = 7.8 g/dL 6.3-8.2 0726387621) ALBUMIN (test code = 4.6 g/dL 3.5-5 5361930301) ALK PHOS (test code = 81 U/L 34-122 7247700327) ALTv (test code = 11 U/L 5-35 2-6) AST(SGOT) (test code = 17 U/L 13-40 6770653428) eGFR (test code = mL/min/1.73m2 2729273294) PARTH (test code = PARTH) Association of [...] tests). Lab Interpretation Abnormal (test code = 74034-1) [facility]. METABOLIC PANEL (13472)2022-05-21 01:01:28 Test Item Value Reference Range Interpretation Comments NA (test code = 139 mmol/L 135-145 2456786020) K (test code = 3.6 mmol/L 3.5-5 8870380830) CL (test code = 106 mmol/L 98-108 0705462576) CO2 TOTAL (test code = 24 mmol/L 23-31 9437853555) AGAP (test code = 2-16 3362779034) BUN (test code = 10 mg/dL 7-23 3223890252) GLUCOSE (test code = 96 mg/dL 70-110 2483576205) CREATININE (test code = 0.44 mg/dL 0.5-1.04 L 5885239482) TOTAL BILI (test code = 1.0 mg/dL 0.1-1.0 9757792732) CALCIUM (test code = 9.0 mg/dL 8.6-10.6 0214649834) T PROTEIN (test code = 7.8 g/dL 6.3-8.2 6832654596) ALBUMIN (test code = 4.6 g/dL 3.5-5 6779610447) ALK PHOS (test code = 81 U/L 34-122 3456041745) ALTv (test code = 11 U/L 5-35 2-6) AST(SGOT) (test code = 17 U/L 13-40 9417076100) eGFR (test code = mL/min/1.73m2 2140152140) PARTH (test code = PARTH) Association of [...] tests). Lab Interpretation Abnormal (test code = 12657-7) [facility] WITH [id number] 00:51:27 Test Item Value Reference Range Interpretation Comments WBC (test code = See_Comment H [Automated 8990-2) message] The sy stem which generated this result transmitted reference range : 4.30 - 11.10 10*3/?L. The reference range was not used to interpret this result as normal/abnormal . RBC (test code = See_Comment [Automated 779-8) message] The sy stem which generated this result transmitted reference range : 3.93 - 5.25 10*6/?L. The reference range was not used to interpret this result as normal/abnormal . HGB (test code = 14.3 g/dL 11.6-15 718-7) HCT (test code = 42.9 % 35.7-45.2 4544-3) MCV (test code = 94.1 fL 80.6-95.5 787-2) MCH (test code = 31.4 pg 25.9-32.8 785-6) MCHC (test code = 33.3 g/dL 31.6-35.1 786-4) RDW-SD (test code = 45.4 fL 39-49.9 88329-3) RDW-CV (test code = 13.3 % 12-15.5 788-0) PLT (test code = See_Comment [Automated 777-3) message] The sy stem which generated this result transmitted reference range : 166 - 358 10*3/ ?L. The reference r jess was not used to interpret this result as normal/abnormal . MPV (test code = 10.5 fL 9.5-12.9 07726-7) NRBC/100 WBC (test See_Comment [Automat ed code = 9514701253) message] The system which generated this result transmitted reference range : 0.0 - 10.0 /100 WBCs. The refer ence range was not u sed to interpret th is result as normal/abnormal . NRBC x10^3 (test code See_Comment [Auto mated = 6475079458) message] The s ystem which generated this result transmitted reference range : 10*3/?L. The reference range was not used to interpret this result as normal/abnormal . GRAN MAT (NEUT) % 67.4 % (test code = 770-8) IMM GRAN % (test code 0.30 % = 2919190498) LYMPH % (test code = 24.5 % 736-9) MONO % (test code = 7.2 % 5905-5) EOS % (test code = 0.3 % 713-8) BASO % (test code = 0.3 % 706-2) GRAN MAT x10^3(ANC) 8.19 10*3/uL 1.88-7.09 H (test code = 0005137006) IMM GRAN x10^3 (test 0.04 10*3/uL 0-0.06 code = 6025500372) LYMPH x10^3 (test code 2.98 10*3/uL 1.32-3.29 = 731-0) MONO x10^3 (test code 0.88 10*3/uL 0.33-0.92 = 742-7) EOS x10^3 (test code = 0.04 10*3/uL 0.03-0.39 711-2) BASO x10^3 (test code 0.04 10*3/uL 0.01-0.07 = 704-7) Lab Interpretation Abnormal (test code = 18893-8) [facility] WITH [id number] 00:51:27 Test Item Value Reference Range Interpretation Comments WBC (test code = See_Comment H [Automated 6690-2) message] The sy stem which generated this result transmitted reference range : 4.30 - 11.10 10*3/?L. The reference range was not used to interpret this result as normal/abnormal . RBC (test code = See_Comment [Automated 789-8) message] The sy stem which generated this result transmitted reference range : 3.93 - 5.25 10*6/?L. The reference range was not used to interpret this result as normal/abnormal . HGB (test code = 14.3 g/dL 11.6-15 718-7) HCT (test code = 42.9 % 35.7-45.2 4544-3) MCV (test code = 94.1 fL 80.6-95.5 787-2) MCH (test code = 31.4 pg 25.9-32.8 785-6) MCHC (test code = 33.3 g/dL 31.6-35.1 786-4) RDW-SD (test code = 45.4 fL 39-49.9 68652-2) RDW-CV (test code = 13.3 % 12-15.5 788-0) PLT (test code = See_Comment [Automated 777-3) message] The sy stem which generated this result transmitted reference range : 166 - 358 10*3/ ?L. The reference r jess was not used to interpret this result as normal/abnormal . MPV (test code = 10.5 fL 9.5-12.9 65109-1) NRBC/100 WBC (test See_Comment [Automat ed code = 1293872216) message] The system which generated this result transmitted reference range : 0.0 - 10.0 /100 WBCs. The refer ence range was not u sed to interpret th is result as normal/abnormal . NRBC x10^3 (test code See_Comment [Auto mated = 7182034673) message] The s ystem which generated this result transmitted reference range : 10*3/?L. The reference range was not used to interpret this result as normal/abnormal . GRAN MAT (NEUT) % 67.4 % (test code = 770-8) IMM GRAN % (test code 0.30 % = 2145804922) LYMPH % (test code = 24.5 % 736-9) MONO % (test code = 7.2 % 5905-5) EOS % (test code = 0.3 % 713-8) BASO % (test code = 0.3 % 706-2) GRAN MAT x10^3(ANC) 8.19 10*3/uL 1.88-7.09 H (test code = 0149266306) IMM GRAN x10^3 (test 0.04 10*3/uL 0-0.06 code = 7401018130) LYMPH x10^3 (test code 2.98 10*3/uL 1.32-3.29 = 731-0) MONO x10^3 (test code 0.88 10*3/uL 0.33-0.92 = 742-7) EOS x10^3 (test code = 0.04 10*3/uL 0.03-0.39 711-2) BASO x10^3 (test code 0.04 10*3/uL 0.01-0.07 = 704-7) Lab Interpretation Abnormal (test code = 16779-2) [facility], THINPREP, [id number] 00:00:00 Test Item Value Reference Range Interpretation Comments SOURCE: (test code = Cervical/Endocervical 8001) SLIDES: (test code = 1 8011) LMP: (test code = 8021) 03/26/2019 SPECIMEN ADEQUACY: (test (NOTE) code = 42848) INTERPRETATION: (test NILM/NO EPITH. code = 07828) ABNORMALITY;SEE BELOW OTHER COMMENTS: (test (NOTE) code = 8081) LEGAL REFEREE: (test Janet code = 8101) MARI Grajeda(ASCP) QC TECHNOLOGIST: (test Gabrielle code = 8111) MARGARITA Yun(ASCP)CT(IA C) LOCATION: (test code = (NOTE) 22829) CPT: (test code = 8140) (NOTE) PAP TEST, THINPREP, [id number] 00:00:00 Test Item Value Reference Range Interpretation Comments SOURCE: (test code = Cervical/Endocervical 8001) SLIDES: (test code = 1 8011) LMP: (test code = 8021) 03/26/2019 SPECIMEN ADEQUACY: (test (NOTE) code = 53049) INTERPRETATION: (test NILM/NO EPITH. code = 33496) ABNORMALITY;SEE BELOW OTHER COMMENTS: (test (NOTE) code = 8081) LEGAL REFEREE: (test Janet code = 8101) MARI Grajeda(ASCP) QC TECHNOLOGIST: (test Gabrielle code = 8111) MARGARITA Yun(ASCP)CT(IA C) LOCATION: (test code = (NOTE) 92340) CPT: (test code = 8140) (NOTE) CT/NG, TMA, THINPREP [ADDED]2019-05-04 00:00:00 Test Item Value Reference Range Interpretation Comments GONORRHEA, TMA (test code = 72052) NEGATIVE CHLAMYDIA, TMA (test code = 75771) NEGATIVE CT/NG, TMA, THINPREP [ADDED]2019-05-04 00:00:00 Test Item Value Reference Range Interpretation Comments GONORRHEA, TMA (test code = 75605) NEGATIVE CHLAMYDIA, TMA (test code = 57854) NEGATIVE VAGINAL PATHOGENS DNA [id number] 00:00:00 Test Item Value Reference Range Interpretation Comments PRASANNA SPECIES (test code = 24280) NEGATIVE G. VAGINALIS (test code = 37782) NEGATIVE T. VAGINALIS (test code = 72047) POSITIVE CBC W/AUTO [id number] 00:00:00 Test Item Value Reference Range Interpretation Comments WBC (test code = 1001) 11.9 K/UL RBC (test code = 1002) 4.68 M/UL HEMOGLOBIN (test code = 1003) 14.3 G/DL HEMATOCRIT (test code = 1004) 41.2 % MCV (test code = 1005) 88.0 fL MCH (test code = 1006) 30.6 PG MCHC (test code = 1007) 34.7 G/DL RDW (test code = 1038) 13.3 % NEUTROPHILS (test code = 1008) 58.0 % LYMPHOCYTES (test code = 1010) 34.3 % MONOCYTES (test code = 1011) 6.7 % EOSINOPHILS (test code = 1012) 0.7 % BASOPHILS (test code = 1013) 0.3 % PLATELET COUNT (test code = 1015) 362 K/UL CBC W/AUTO [id number] 00:00:00 Test Item Value Reference Range Interpretation Comments WBC (test code = 1001) 11.9 K/UL RBC (test code = 1002) 4.68 M/UL HEMOGLOBIN (test code = 1003) 14.3 G/DL HEMATOCRIT (test code = 1004) 41.2 % MCV (test code = 1005) 88.0 fL MCH (test code = 1006) 30.6 PG MCHC (test code = 1007) 34.7 G/DL RDW (test code = 1038) 13.3 % NEUTROPHILS (test code = 1008) 58.0 % LYMPHOCYTES (test code = 1010) 34.3 % MONOCYTES (test code = 1011) 6.7 % EOSINOPHILS (test code = 1012) 0.7 % BASOPHILS (test code = 1013) 0.3 % PLATELET COUNT (test code = 1015) 362 K/UL CBC W/AUTO [id number] 00:00:00 Test Item Value Reference Range Interpretation Comments WBC (test code = 1001) 11.9 K/UL RBC (test code = 1002) 4.68 M/UL HEMOGLOBIN (test code = 1003) 14.3 G/DL HEMATOCRIT (test code = 1004) 41.2 % MCV (test code = 1005) 88.0 fL MCH (test code = 1006) 30.6 PG MCHC (test code = 1007) 34.7 G/DL RDW (test code = 1038) 13.3 % NEUTROPHILS (test code = 1008) 58.0 % LYMPHOCYTES (test code = 1010) 34.3 % MONOCYTES (test code = 1011) 6.7 % EOSINOPHILS (test code = 1012) 0.7 % BASOPHILS (test code = 1013) 0.3 % PLATELET COUNT (test code = 1015) 362 K/UL VAGINAL PATHOGENS DNA [id number] 00:00:00 Test Item Value Reference Range Interpretation Comments PRASANNA SPECIES (test code = 45157) NEGATIVE G. VAGINALIS (test code = ) NEGATIVE T. VAGINALIS (test code = ) POSITIVE HPV HIGH RISK WITH GENOTYPE, [id number] 00:00:00 Test Item Value Reference Range Interpretation Comments HPV HIGH RISK INTERP (test code = NEGATIVE 14617) HPV 16 (test code = 11357) NEGATIVE HPV 18 (test code = 36588) NEGATIVE HPV, HR, OTHER GENOTYPES (test code NEGATIVE = 93295) LIPID [id number] 00:00:00 Test Item Value Reference Range Interpretation Comments CHOLESTEROL (test code = 2210) 221 MG/DL TRIGLYCERIDES (test code = 2232) 106 MG/DL HDL CHOLESTEROL (test code = 2220) 40 MG/DL CALC LDL CHOL (test code = 2237) 160 MG/DL RISK RATIO LDL/HDL (test code = 4.00 RATIO 2238) HPV HIGH RISK WITH GENOTYPE, [id number] 00:00:00 Test Item Value Reference Range Interpretation Comments HPV HIGH RISK INTERP (test code = NEGATIVE 22931) HPV 16 (test code = 21984) NEGATIVE HPV 18 (test code = 26498) NEGATIVE HPV, HR, OTHER GENOTYPES (test code NEGATIVE = 47132) LIPID [id number] 00:00:00 Test Item Value Reference Range Interpretation Comments CHOLESTEROL (test code = 2210) 221 MG/DL TRIGLYCERIDES (test code = 2232) 106 MG/DL HDL CHOLESTEROL (test code = 2220) 40 MG/DL CALC LDL CHOL (test code = 2237) 160 MG/DL RISK RATIO LDL/HDL (test code = 4.00 RATIO 2238) HEMOGLOBIN [id number] 00:00:00 Test Item Value Reference Range Interpretation Comments HEMOGLOBIN A1c (test code = 71319) 5.9 % HEMOGLOBIN [id number] 00:00:00 Test Item Value Reference Range Interpretation Comments HEMOGLOBIN A1c (test code = 78639) 5.9 % HEMOGLOBIN [id number] 00:00:00 Test Item Value Reference Range Interpretation Comments HEMOGLOBIN A1c (test code = 98751) 5.9 % COMPREHENSIVE METABOLIC [id number] 00:00:00 Test Item Value Reference Range Interpretation Comments GLUCOSE (test code = 2217) 100 MG/DL BUN (test code = 2208) 10 MG/DL CREATININE (test code = 2214) 0.56 MG/DL eGFR AMER. (test code 137 ML/MIN/1.73 = 86175) eGFR NON- AMER. (test 118 ML/MIN/1.73 code = 50839) CALC BUN/CREAT (test code = 18 RATIO 2235) SODIUM (test code = 2231) 140 MEQ/L POTASSIUM (test code = 2228) 3.7 MEQ/L CHLORIDE (test code = 2215) 103 MEQ/L CARBON DIOXIDE (test code = 22 MEQ/L 220) CALCIUM (test code = 2209) 9.1 MG/DL PROTEIN, TOTAL (test code = 7.5 G/DL 222) ALBUMIN (test code = 2201) 4.4 G/DL CALC GLOBULIN (test code = 3.1 G/DL 2240) CALC A/G RATIO (test code = 1.4 RATIO 2234) BILIRUBIN, TOTAL (test code = 0.5 MG/DL 2206) ALKALINE PHOSPHATASE (test 79 U/L code = 2204) AST (test code = 2218) 18 U/L ALT (test code = 2219) 26 U/L COMPREHENSIVE METABOLIC [id number] 00:00:00 Test Item Value Reference Range Interpretation Comments GLUCOSE (test code = 2217) 100 MG/DL BUN (test code = 2208) 10 MG/DL CREATININE (test code = 2214) 0.56 MG/DL eGFR AMER. (test code 137 ML/MIN/1.73 = 14598) eGFR NON- AMER. (test 118 ML/MIN/1.73 code = 08389) CALC BUN/CREAT (test code = 18 RATIO 2235) SODIUM (test code = 2231) 140 MEQ/L POTASSIUM (test code = 2228) 3.7 MEQ/L CHLORIDE (test code = 2215) 103 MEQ/L CARBON DIOXIDE (test code = 22 MEQ/L 2205) CALCIUM (test code = 2209) 9.1 MG/DL PROTEIN, TOTAL (test code = 7.5 G/DL 2228) ALBUMIN (test code = 2201) 4.4 G/DL CALC GLOBULIN (test code = 3.1 G/DL 2240) CALC A/G RATIO (test code = 1.4 RATIO 2234) BILIRUBIN, TOTAL (test code = 0.5 MG/DL 2206) ALKALINE PHOSPHATASE (test 79 U/L code = 2204) AST (test code = 2218) 18 U/L ALT (test code = 2219) 26 U/L [id number] 00:00:00 Test Item Value Reference Range Interpretation Comments TSH, THIRD GENERATION (test code 1.260 UIU/ML = 2821) [id number] 00:00:00 Test Item Value Reference Range Interpretation Comments TSH, THIRD GENERATION (test code 1.260 UIU/ML = 2821) [id number] 00:00:00 Test Item Value Reference Range Interpretation Comments TSH, THIRD GENERATION (test code 1.260 UIU/ML = 2821) U/S GALLBLADDER *OW*2018-12-04 15:44:54CLINICAL HISTORY: Upper abdominal pain.LOCATION: D4.FINDINGS: Real-time grayscale [...] is normal in appearance without evidence ofcentral pul monary embolus. The thoracic aorta and visualized abdominal aortaare within normal limits. Multiple subcentimeter mediastinal nodes are notedwith no significant mediastinal adenopathy appreciated. There is afat-containing umbilical hernia measuring 1.9 cm AP x 2.5 cm transverse. Noacute skeletal or soft tissue abnormalities are identified.The lungs are clear. No infiltrates identified. There are no pleural effusions.IMPRESSION:1. No evidence of central pulmonary embolus. No acute abnormalities.*One or more of the following radiation dose reduction techniques was used:automated exposure control, adju stment of mA and/or KV according to patientsize, [...] 1.0 INR) INRH (test code = SUGGESTED THERAPEUTIC INRH) RANGE FOR INR: 2.5 - 3.5 For Patients with Prosthetic Valves or Patients with recurrent Thromboembolic Events 2.0 - 3.[address] ABDOMEN AND PELVIS WITH CONTRAST *OW*2018-11-11 05:31:13CT abdomen and pelvis with contrastLocation Code: [id number] HISTORY: [id number]: Lower abdominal pain COMPARISON: NoneTechnique: Helical CT [...] osseous lesions are seen. IMPRESSION: 1.A moderate volume of stool seen throughout the colon [...] % 0.0-10.0 XR CHEST 2 VIEW *OW*2018-10-12 07:25:53R84PAKP: XR CHEST 2 VIEW *OW*HISTORY: [id number]: CoughCOMPARISON: 08/08/18INDINGS: The lungs are clear. No [...] = GMID%) 10.3 % 0.0-10.0 H THROAT [id number] 07:45:00 Test Item Value Reference Range Interpretation [...] 14:39:21PA and lateral chest, 2 viewsLocation code: [id number] HISTORY: Chest painCOMPARISON: NoneCOMMENTS: The lungs are clear and well inflated. The costophrenic angles aresharp. The cardiomediastinal silhouette is unremarkable. The bones are intact.IMPRESSION: No acute abnormality"
[2022-07-19 10:34] LABS: Hematocrit 39.9 % (36.0-45.0); MCV 93.7 fL (80-100); RBC Red Blood Cell Count 4.25 M/uL (3.86-4.86)
[2022-07-19 10:35] LABS: Absolute Lymphocytes (CBC) 2.2 K/uL (0.7-4.9); Lymphocytes % 33.9 % (15.3-44.8); MPV 8.3 fL (7.6-11.3)
--- NOTE | 2022-07-19 10:47 | RAD REPORT ---
EXAM DESCRIPTION: Sharona Single View07/19/2022 10:30 am CLINICAL HISTORY: Chest pain COMPARISON: 2018 FINDINGS: The lungs appear clear of acute infiltrate. The heart is normal size IMPRESSION: No acute abnormalities displayed
[2022-07-19 11:02] LABS: BUN Blood Urea Nitrogen 16 mg/dL (7-18); Bicarbonate 28 mmol/L (21-32); Glomerular Filtration Rate 113 ml/min (=/>90); Glucose Level 104 mg/dL (74-106); Potassium 4.3 mmol/L (3.5-5.1); Sodium Level 138 mmol/L (136-145)
[2022-07-19 11:05] LABS: Troponin High Sensitivity < 3.0 pg/mL (<58.9)
--- NOTE | 2022-07-19 11:18 | EDPHYS ---
Physician Documentation [facility] Name: Serenity Collins Age: 41 yrs Sex: Female : 1980 Arrival Date: 07/19/2022 Time: 08:50 Bed 13 Private MD: LALO Physician Francis Foreman HPI: 07/19 09:15 This 41 yrs old Female presents to ER via Ambulatory with complaints of Weakness, jmm Dizziness. 09:15 The patient has experienced near-syncope. Onset: The symptoms/episode began/occurred jmm gradually, 2 week(s) ago. Duration: This was a single episode. Associated injury: The patient did not suffer any apparent associated injury. This is a 41 year old female with a history of anxiety, bipolar, depression, ptsd that present to the ED with complaints of weakness, fatigue, near syncope which has been ongoing the past 2 weeks. Denies fever. Denies cough. Patient also complains of intermittent chest pain with sob. . 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 Last tetanus immunization: up to date. - Social history:: Smoking status: Reported history of juuling and/or vaping. Patient uses street drugs, marijuana. ROS: 09:15 Constitutional: Positive for body aches, chills. jmm 09:15 Cardiovascular: Positive for chest pain. 09:15 Respiratory: Positive for shortness of breath, Negative for cough. 09:15 All other systems are negative. Exam: 09:15 Constitutional: This is a well developed, well nourished patient who is awake, alert, jmm and in no acute distress. Head/Face: atraumatic. Eyes: EOMI, no conjunctival erythema appreciated ENT: Moist Mucus Membranes Neck: Trachea midline, Supple Chest/axilla: Normal chest wall appearance and motion. Cardiovascular: Regular rate and rhythm. No edema appreciated Respiratory: Normal respirations, no respiratory distress appreciated Abdomen/GI: Non distended Back: Normal ROM Skin: General appearance color normal MS/ Extremity: Moves all extremities, no obvious deformities appreciated, no edema noted to the lower extremities Neuro: Awake and alert Psych: Behavior is normal, Mood is normal, Patient is cooperative and pleasant Vital Signs: 09:10 BP 120 / 75; Pulse 73; Resp 20; Temp 98.7; Pulse Ox 99% ; Weight 56.7 kg; Height 5 ft. iw 2 in. (157.48 cm); Pain 0/10; 10:15 BP 106 / 66; Pulse 59; Resp 16; Pulse Ox 99% on R/A; db 11:00 BP 111 / 65; Pulse 58; Resp 16; Pulse Ox 98% on R/A; Pain 0/10; db 09:10 Body Mass Index 22.86 (56.70 kg, 157.48 cm) iw NIH Stroke Scale Scores: 10:19 NIHSS Score: 0 db MDM: 09:[address] [facility] 11:16 Data reviewed: vital signs, nurses notes. Counseling: I had a detailed discussion with mary kate the patient and/or guardian regarding: the historical points, exam findings, and any diagnostic results supporting the discharge/admit diagnosis, lab results, radiology results, the need for outpatient follow up, to return to the emergency department if symptoms worsen or persist or if there are any questions or concerns that arise at home. 07/19 09:18 Order name: Basic Metabolic Panel; Complete Time: 11:10 [facility] 07/19 09:18 Order name: CBC with Diff; Complete Time: 10:40 [facility] 07/19 09:18 Order name: Troponin HS; Complete Time: 11:10 [facility] 07/19 09:18 Order name: XRAY Chest (1 view); Complete Time: 10:48 [facility] 07/19 09:18 Order name: EKG; Complete Time: 09:18 [facility] 07/19 09:18 Order name: D-Dimer; Complete Time: 10:40 [facility] 07/19 09:18 Order name: Cardiac monitoring; Complete Time: 10:36 [facility] 07/19 09:18 Order name: EKG - Nurse/Tech; Complete Time: 10:36 [facility] 07/19 09:18 Order name: IV Saline Lock; Complete Time: 10:36 [facility] 07/19 09:18 Order name: Labs collected and sent; Complete Time: 10:36 [facility] 07/19 09:18 Order name: O2 Per Protocol; Complete Time: 10:36 [facility] 07/19 09:18 Order name: O2 Sat Monitoring; Complete Time: 10:36 jm Administered Medications: No medications were administered Disposition: 07/20 08:05 Co-signature as Attending Physician, Francis Foreman MD I agree with the assessment and carmen plan of care. Disposition Summary: 07/19/22 11:17 Discharge Ordered Location: Home [facility] Condition: Stable [facility] Diagnosis - Syncope Near [facility] Followup: [facility] - With: Private Physician - When: 2 - 3 days - Reason: Recheck today's complaints, Continuance of care, Re-evaluation by your physician Discharge Instructions: - Discharge Summary Sheet [facility] - Near-Syncope [facility] Forms: - Medication Reconciliation Form [facility] - Thank You Letter [facility] - Antibiotic Education [facility] - Prescription Opioid Use [facility] - Work release form NIH Stroke Scale - NIH Stroke Score Date: 07/19/2022 Time: 10:19 Total Score = 0 1a. Level of Consciousness (LOC) - 0(Alert) 1b. Level of Consciousness (LOC) (Month \T\ Age) - 0(Both) 1c. LOC Commands (Open \T\ Closes Eyes/Technical Assistant) - 0(Both) 2. Best Gaze (Lateral Gaze Paresis) - 0(Normal) 3. Visual Field Loss - 0(No visual loss) 4. Facial Palsy - 0(Normal) 5a. Left Arm: Motor (10-second hold) - 0(No drift) 5b. Right Arm: Motor (10-second hold) - 0(No drift) 6a. Left Leg: Motor (5-second hold - always test supine) - 0(No drift) 6b. Right Leg: Motor (5-second hold - always test supine) - 0(No drift) 7. Limb Ataxia (finger/nose \T\ heel/ferrera - test with eyes open) - 0(Absent) 8. Sensory Loss (pinprick arms/legs/face) - 0(Normal) 9. Best Language: Aphasia (description/naming/reading) - 0(No aphasia) 10. Dysarthria (speech clarity - read or repeat words) - 0(Normal) 11. Extinction and Inattention (visual/tactile/auditory/spatial/personal) - 0(No abnormality) Initials: db Signatures: Dispatcher [employer] Francis Johnson MD MD cha Mickail, Joel, PA PA jmm Williams, Irene, RN RN iw
--- NOTE | 2022-07-19 11:18 | ER ---
Nurse's Notes [facility] Name: Serenity Collins Age: 41 yrs Sex: Female : 1980 Arrival Date: 07/19/2022 Time: 08:50 Bed 13 Private MD: Diagnosis: Syncope Near Presentation: 07/19 09:10 Chief complaint: Patient states: "for the last 2 weeks I wake up every day and Im just iw not myself. I'm fatigued and throwed off." Denies fever, cough, congestion, bleeding, vomiting. Coronavirus screen: Vaccine status: Patient reports being unvaccinated. Client denies travel out of the [place] in the last 14 days. Ebola Screen: Patient negative for fever greater than or equal to 101.5 degrees Fahrenheit, and additional compatible Ebola Virus Disease symptoms Patient denies exposure to infectious person. Patient denies travel to an Ebola-affected area in the 21 days before illness onset. No acute neurological deficit is noted. Initial Sepsis Screen: Does the patient meet any 2 criteria? No. Patient's initial sepsis screen is negative. Does the patient have a suspected source of infection? No. Patient's initial sepsis screen is negative. Risk Assessment: Do you want to hurt yourself or someone else? Patient reports no desire to harm self or others. Onset of symptoms was July 01, 2022. 09:10 Method Of Arrival: Ambulatory iw 09:10 Acuity: MARY 3 iw 09:20 Pre-hospital glucose is not applicable to this patient. db Triage Assessment: 09:13 The onset of the patients symptoms was at an unknown time. General: Appears in no iw apparent distress. Behavior is calm, cooperative. Pain: Denies pain. Neuro: No deficits noted. Reports Occasional blurred vision. 15:23 The onset of the patients symptoms was at an unknown time. 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 - Hysterectomy iw Stroke Activation: Symptom onset > 6 hours Physician: Stroke Attending; Name: ; Notified At: ; Arrived At: Physician: Chief Stroke Resident; Name: ; Notified At: ; Arrived At: Physician: Stroke Resident; Name: ; Notified At: ; Arrived At: Physician: ED Attending; Name: ; Notified At: ; Arrived At: Physician: ED Resident; Name: ; Notified At: ; Arrived At: Historical: - Allergies: 09:13 JOE; iw 09:13 SHELLFISH; iw 09:13 Tylenol-Codeine #3; iw 09:13 Seroquel; iw - Home Meds: 09:13 None [Active]; iw - PMHx: 09:13 Anxiety; Bipolar disorder; depressive disorder; ocd; PTSD; Rheumatoid Arthritis; iw - PSHx: 09:13 Total abdominal hysterectomy; iw - Immunization history:: Adult Immunizations up to date, Client reports having NOT received the Covid vaccine. Last tetanus immunization: up to date. - Social history:: Smoking status: Reported history of juuling and/or vaping. Patient uses street drugs, marijuana. Screenin:19 Abuse screen: Denies threats or abuse. Denies injuries from another. Nutritional db screening: No deficits noted. Tuberculosis screening: No symptoms or risk factors identified. Fall Risk None identified. No fall in past 12 months (0 pts). No secondary diagnosis (0 pts). IV access (20 points). Ambulatory Aid- None/Bed Rest/Nurse Assist (0 pts). Gait- Normal/Bed Rest/Wheelchair (0 pts) Mental Status- Oriented to own ability (0 pts). Total Fish Fall Scale indicates No Risk (0-24 pts). Assessment: 10:19 Reassessment: Patient appears in no apparent distress at this time. Patient is alert, db oriented x 3, equal unlabored respirations, skin warm/dry/pink. patient states has weakness and blurry vision in the AM x 1 week. General: Appears in no apparent distress. comfortable, Behavior is calm, cooperative, appropriate for age, quiet. Pain: Denies pain. Neuro: No deficits noted. Level of Consciousness is awake, alert, obeys commands, Oriented to person, place, time, situation, Appropriate for age Speech is normal, Pupils are PERRLA. Cardiovascular: No deficits noted. Respiratory: No deficits noted. Airway is patent Respiratory effort is even, unlabored, Respiratory pattern is regular, symmetrical. GI: No deficits noted. No signs and/or symptoms were reported involving the gastrointestinal system. : No deficits noted. No signs and/or symptoms were reported regarding the genitourinary system. EENT: No deficits noted. No signs and/or symptoms were reported regarding the EENT system. 11:20 VAN Scoring: Arm Drift: Patients demonstrates NO arm weakness. Patient is VAN Negative. db Visual Disturbance: No visual disturbance noted. The patient has not been NPO before screening. The patient is alert, and able to follow commands. The patient does not exhibit slurred or garbled speech. The patient is not exhibiting difficulty speaking. The patient does not exhibit difficulty understanding words. The patient is able to swallow own secretions with no drooling or need for suction. Patient tolerated one teaspoon of water. No drooling, immediate coughing, gurgling, or clearing of the throat was noted. The patient tolerated 90mL of water. No drooling, immediate coughing, gurgling, or clearing of the throat was noted. The patient passed the bedside swallow screening. Oral medications may be given as ordered. Contact Physician for further diet orders. TNKase (Tenecteplase) Screening: Contraindications:. Vital Signs: 09:10 BP 120 / 75; Pulse 73; Resp 20; Temp 98.7; Pulse Ox 99% ; Weight 56.7 kg; Height 5 ft. iw 2 in. (157.48 cm); Pain 0/10; 10:15 BP 106 / 66; Pulse 59; Resp 16; Pulse Ox 99% on R/A; db 11:00 BP 111 / 65; Pulse 58; Resp 16; Pulse Ox 98% on R/A; Pain 0/10; db 09:10 Body Mass Index 22.86 (56.70 kg, 157.48 cm) iw NIH Stroke Scale Scores: 10:19 NIHSS Score: 0 db ED Course: 08:50 Patient arrived in ED. mr 08:57 Dimitry Hillman PA is PHCP. jmm 08:57 Francis Foreman MD is Attending Physician. jmm 09:13 Triage completed. iw 09:13 Arm band placed on right wrist. iw 09:44 Lakeshia Cabrera, YOHAN is Primary Nurse. db 10:19 Inserted saline lock: 20 gauge in right antecubital area, using aseptic technique. db Blood collected. 10:31 XRAY Chest (1 view) In Process Unspecified. EDMS 11:20 Patient has correct armband on for positive identification. Bed in low position. Call db light in reach. Side rails up X 1. 11:20 No provider procedures requiring assistance completed. IV discontinued. db 11:20 IV discontinued, intact, bleeding controlled, No redness/swelling at site. db Administered Medications: No medications were administered Medication: 10:19 VIS not applicable for this client. db Outcome: 11:17 Discharge ordered by . mary kate 11:20 Discharged to home ambulatory. db 11:20 Condition: stable 11:20 Discharge instructions given to patient, Instructed on discharge instructions, follow up and referral plans. 11:32 Patient left the ED. NIH Stroke Scale - NIH Stroke Score Date: 07/19/2022 Time: 10:19 Total Score = 0 1a. Level of Consciousness (LOC) - 0(Alert) 1b. Level of Consciousness (LOC) (Month \\T\\ Age) - 0(Both) 1c. LOC Commands (Open \\T\\ Closes Eyes/Plaster Mold Maker) - 0(Both) 2. Best Gaze (Lateral Gaze Paresis) - 0(Normal) 3. Visual Field Loss - 0(No visual loss) 4. Facial Palsy - 0(Normal) 5a. Left Arm: Motor (10-second hold) - 0(No drift) 5b. Right Arm: Motor (10-second hold) - 0(No drift) 6a. Left Leg: Motor (5-second hold - always test supine) - 0(No drift) 6b. Right Leg: Motor (5-second hold - always test supine) - 0(No drift) 7. Limb Ataxia (finger/nose \\T\\ heel/ferrera - test with eyes open) - 0(Absent) 8. Sensory Loss (pinprick arms/legs/face) - 0(Normal) 9. Best Language: Aphasia (description/naming/reading) - 0(No aphasia) 10. Dysarthria (speech clarity - read or repeat words) - 0(Normal) 11. Extinction and Inattention (visual/tactile/auditory/spatial/personal) - 0(No abnormality) Initials: db Signatures: Dispatcher [employer] EDDimitry Stock PA PA jmm Rivera, Mary mr Williams, Irene, Elle Yang RN, Danielle, RN RN db
[2022-07-19 11:37] VITALS: TEMP 98.7
[2022-07-19 11:39] VITALS: BP 111/65; O2SAT 98
--- NOTE | 2022-07-21 13:52 | EKG ---
Test Date: 2022-07-19 Test Time: 10:27:53 Management Coordinator: KATE MEASUREMENT RESULTS: Intervals: Rate: 57 MT: 148 QRSD: 78 QT: 420 QTc: 408 [place]: P: 66 MT: 148 QRS: 54 T: 46 INTERPRETIVE STATEMENTS: Sinus bradycardia Otherwise normal ECG Compared to ECG 07/10/2019 07:12:57 Sinus rhythm no longer present Electronically Signed On 07-21-22 13:49:49 RECORDING STUDIO SETUP WORKER by Chico Pope
== END 2022-07-19 11:32 | disposition home or self-care (01) ==
LOC: ER 08:47
DX: R55 Syncope and collapse (principal); R53.1 Weakness; Z88.5 Allergy status to narcotic agent; Z91.013 Allergy to seafood; Z91.018 Allergy to other foods
CPT/HCPCS: 36415; 71045; 80048; 84484; 85025; 85379; 93005; 99283

== ENCOUNTER 2023-06-07 07:33 | Emergency (ER) | payer OTHER ==
--- OUTSIDE RECORDS SUMMARY | 2023-06-07 07:40 | XMS REPORT | Continuity of Care Document ---
:1980 Author Organization [facility] t Address [address] [place] [address] [place] [id number] Care Team Providers Name Role Phone [facility], [facility] Primary Care Physician [phone] ANTONY JOSHUA Attending Clinician Unavailable SHANDRA CANTU Attending Clinician Unavailable Doctor Unassigned, [place] Attending Clinician Unavailable MARINO WILLS Attending Clinician Unavailable Pgy3 Attending Clinician Unavailable Marino Wills MD Attending Clinician MARCIANO WAYNE Attending Clinician Unavailable Marciano Wayne MD Attending Clinician Felisa [place] Attending Clinician FELISA DAVIS Attending Clinician Unavailable Pcp-Lab Attending Clinician Unavailable Jimmy Carroll MD Attending Clinician JIMMY CARROLL Attending Clinician Unavailable Sharan eBnjamin MD Attending Clinician Katy Hadley RN Attending Clinician Unavailable Simeon Herman Attending Clinician Unavailable SURESH BONILLA Attending Clinician Unavailable Suresh Bonilla DDS Attending Clinician Cristy Burden Attending Clinician Peggy Benitez LVN Attending Clinician Chau Carver DDS Attending Clinician CHAU CARVER Attending Clinician Unavailable Josiane TAY, Antony Leach Attending Clinician Chucky TAY, Arianna Attending Clinician Jewel TAY, Otis Attending Clinician OTIS HOLLOWAY Attending Clinician Unavailable Only, Adc Test Attending Clinician Unavailable Carmine ALMANZAR, Melanie Downing Attending Clinician BENTLEY BEARDEN Attending Clinician Unavailable Pepe TAY, Eliz Attending Clinician Jammie TAY, Shawn Attending Clinician SHAWN AGUDELO Attending Clinician Unavailable Carlos TAY, Theodora Attending Clinician SENA JONES Attending Clinician Unavailable Karen GORE, Sena Attending Clinician Alejandro Benites DO Attending Clinician Unknown, Attending Attending Clinician Unavailable UNKNOWN, ATTENDING Attending Clinician Unavailable SON SELBY Attending Clinician Unavailable Acosta GASCAW, Montse Mccormack Attending Clinician Unavailable Leonid Attending Clinician Unavailable Jody Blanco MD Attending Clinician Suleiman GALVANS, Bentley Attending Clinician EMILY RIVERA Attending Clinician Unavailable Emily Rivera MD Attending Clinician Only, [facility] Test Attending Clinician Unavailable SABINO DUMONT Attending Clinician Unavailable Julia TAY, Sabino Williamson Attending Clinician FRANKLYN CASTILLO Attending Clinician Unavailable Pgy2 Attending Clinician Unavailable Franklyn Castillo MD Attending Clinician Jack Ott MD Attending Clinician Jossie TAY, Alma Rosa Krishna Attending Clinician [phone] Soila GORE, Catalina Attending Clinician Pcp, Patient Does Not Have A Attending Clinician [phone] Curt Koehler Attending Clinician Curt KEMP Attending Clinician Unavailable JEANNINE, DR WHATLEY Attending Clinician Unavailable DR KEYUR PUENTE Attending Clinician Unavailable GILBERT, DR MARKELL Madison Attending Clinician Unavailable MAUREEN, DR CARPENTER Attending Clinician Unavailable DR MELANIE LAI Attending Clinician Unavailable NICOLETTE, DR LEACH Attending Clinician Unavailable DR DARÍO CHAMBERS Attending Clinician Unavailable ANTONY JOSHUA Admitting Clinician Unavailable MARCIANO WAYNE Admitting Clinician Unavailable FELISA DAVIS Admitting Clinician Unavailable SURESH BONILLA Admitting Clinician Unavailable Chad DDS, Suresh Hemphill Admitting Clinician Josiane TAY, Antony Leach Admitting Clinician SENA JONES Admitting Clinician Unavailable Leonid Admitting Clinician Unavailable EMILY RIVERA Admitting Clinician Unavailable Miguel TAY, Emily Mccormack Admitting Clinician SABINO DUMONT Admitting Clinician Unavailable MARINO WILLS Admitting Clinician Unavailable Marino Wills MD Admitting Clinician JEANNINE, DR WHATLEY Admitting Clinician Unavailable CINDI, DR KEYUR Elias Admitting Clinician Unavailable GILBERT, DR MARKELL Madison Admitting Clinician Unavailable MAUREEN, DR CARPENTER Admitting Clinician Unavailable MING, DR MELANIE Downing Admitting Clinician Unavailable NICOLETTE, DR LEACH Admitting Clinician Unavailable TRISH, DR DARÍO Newton Admitting Clinician Unavailable Payers Payer Name Policy Type Policy Number Effective Date Expiration Date [place] [facility] CASE[facility]OOK [id number] 2021 2022 00:00:00 00:00:00 [facility] [id number] 2022 HEALTHCARE 00:00:00 [facility] [place] [id number] 2022 WOMEN 00:00:00 [facility] [id number] 2022 COMM 00:00:00 [facility] BERRIEN [id number] 2021 2021 00:00:00 00:00:00 Problems Condition Condition Condition Status Onset Resolution Last Treating Co mments Source Name Details Category Date Date Treatment Clinician Date Odontogeni Odontogeni Disease Active 2021-08 U nivers c c 0-04 [place] of [place] 00 Medical Branch S/P S/P Disease Active Univers hysterecto hysterecto 6-09 it y of my my 00:00: 00 Medical Branch Abnormal Abnormal Disease Active Overview: Un zeus uterine uterine 4-14 Formattin ity o f bleeding bleeding 00:00: g of this [place] (AUB) (AUB) 00 note Medical might be Branch different from the original. Added automatic ally from request for surgery [id number] Chronic Chronic Disease Active Overview: Univ ers pelvic pelvic 4-14 Formattin ity of pain in pain in 00:00: g of this [place] female female 00 note Medical might be Branch different from the original. Added automatic ally from request for surgery [id number] Hydrosalpi Hydrosalpi Disease Active U nivers nx nx 3-29 ity of 00:00: 00 Medical Branch Generalize Generalize Disease Active U nivers d anxiety d anxiety 3-29 ity of disorder disorder 00:00: 00 Medical Branch Bipolar Bipolar Disease Active Univers disorder disorder 3-29 ity of in full in full 00:00: [place] remission, remission, 00 Me dical most most [...] Made pt. U nivers ne Intolera comments 01-21 Get ity of nce 00:00: really [place] 00 mad Medical Branch Shellfis Propensi Active Nausea Univer s h ty to and/or 01-21 ity of Derived adverse Vomiting 00:00: [place] reaction 00 Medical s Branch QUETIAPI DRUG Active High Other-Cmnt 2021-0 Univ ers NE INGREDI 6-07 ity of 00:00: [place] 00 Medical Branch SHELLFIS DRUG Active High ITCHING 2021-0 Univers H INGREDI 6-07 ity of DERIVED 00:00: [place] 00 Medical Branch Joe Propensi Active Anaphylaxis 2021-0 Uni vers ty to 4-08 ity of adverse 00:00: [place] reaction 00 Medical s Branch JOE DRUG Active Anaphylaxis 2021-0 Unive rs INGREDI 4-08 ity of 00:00: [place] Medical Branch Codeine Propensi Active Itching 2021-0 To face Unive rs ty to 2-23 ity of adverse 00:00: [place] reaction 00 Medical s Branch CODEINE DRUG Active ITCHING 2021-0 Univers INGREDI 2-23 ity of 00:00: [place] [facility] Social History Social Habit Start Date Stop Date Quantity Comments Source Sexual orientation Univer sity of [facility] Alcohol intake 2022-11-08 2022-11-08 Ex-drinker University of 00:00:00 00:00:00 (finding) [facility] Exposure to 2022-10-28 2022-11-07 Not sure [facility] SARS-CoV-2 (event) 00:00:00 12:55:00 [facility] Alcohol Comment 2022-10-15 2022-10-15 stopped 7 weeks Univ ersity of 00:00:00 00:00:00 ago [facility] History of tobacco 2022-05-19 Smokes tobacco Un iversity of use 00:00:00 daily [facility] History of Social 2022-01-23 2022-01-23 Univers ity of function 00:00:00 00:00:00 [facility] Tobacco use and 2021-11-19 2021-11-19 Smokeless Universit y of exposure 00:00:00 00:00:00 tobacco non-user [facility] Tobacco Comment 2021-11-19 2021-11-19 1/2 ppd Universit y of 00:00:00 00:00:00 [facility] Sex Assigned At [birth year] Universit y of 00:00:00 00:00:00 [facility] Smoking Status Start Date Stop Date Source Ex-smoker 2022-08-18 00:00:00 2022-08-18 University o f [place] 00:00:00 Medical Branch Occasional tobacco 2022-06-03 00:00:00 Universit y [facility] smoker Medical Branch Smokes tobacco daily 2021-11-19 00:00:00 Univers ity [facility] Medications Ordered Filled Start Stop Current Ordering Indication Dosage Frequency Signature Comments Components Source Medication Medication Date Date Medication? Clinician (SIG) Name Name ondansetron No 4mg 4 mg, Slow Univers (ZOFRAN 11-04 IV Push, ity of (PF)) 17:45: 17:58 ONCE, 1 [place] injection 4 00 :00 dose, On Medi kiran mg [facility] 11/04/22 at 1245, ANTOINETTE morpHINE (4 No 4mg 4 mg, Slow Univers mg/mL) 11-04 IV Push, ity of injection 4 17:45: 17:58 ONCE, 1 [place] mg 00 :00 dose, On Medical [facility] 11/04/22 at 1245, STAT ketorolac No 30mg 30 mg, Unive rs (TORADOL) 11-04 Slow IV ity of injection 16:15: 15:45 Push, [place] 30 mg 00 :00 ONCE, 1 Medical dose, On Branch [facility] 11/04/22 at 1115, ANTOINETTE OLANZapine 2022- No 2.5mg Take 2.5 U nivers 5 mg tablet 08-18- mg by ity of 10:02: 00:00 mouth [place] 06 :00 daily. Medical Branch OLANZapine 2022- No 2.5mg Take 2.5 U nivers 5 mg tablet 08-18-02 mg by ity of 10:02: 00:00 mouth [place] 06 :00 daily. Medical Branch OLANZapine 2022-0 2022- No 2.5mg Take 2.5 U nivers 5 mg tablet 08-18-02 mg by ity of 10:02: 00:00 mouth [place] 06 :00 daily. Medical Branch TAKE 1 2021-08 No TABLET BY 1-25 [...] Branch suspension modificati 600 mg on) on Amberly 05/22/22 at 2030, Until Discontinu ed, Routine acetaminoph 2021-08 Yes 650mg 650 mg, Un zeus en 0-07 Oral, Q6H, ity of (TYLENOL) 01:15: First dose [place] 160 mg/5 mL 00 (after Medica l oral liquid last Branch 650 mg modificati on) on Amberly 05/22/22 at 2015, Until Discontinu ed, Routine ibuprofen 2021-08 Yes [id number] 600mg Take 1 Univers 600 mg 0-07 101 tablet by ity of tablet 00:00: mouth [place] 00 every 6 Medical (six) Branch hours as needed for Pain (scale 4-6). chlorhexidi 2021-08 Yes [id number] 15mL Swish and Univers ne 0.12 % 0-07 101 spit out ity of mouthwash 00:00: 15 [place] the Medical morning Branch and 15 mL in the evening. ibuprofen 2021-08 Yes [id number] 600mg Take 1 Univers 600 mg 0-07 101 tablet by ity of tablet 00:00: mouth [place] 00 every 6 Medical (six) Branch hours as needed for Pain (scale 4-6). chlorhexidi 2021-08 Yes [id number] 15mL Swish and Univers ne 0.12 % 0-07 101 spit out ity of mouthwash 00:00: 15 [place] 00 the Medical morning Branch and 15 mL in the evening. ibuprofen 2021-08 Yes [id number] 600mg Take 1 Univers 600 mg 0-07 101 tablet by ity of tablet 00:00: mouth [place] 00 every 6 Medical (six) Branch hours as needed for Pain (scale 4-6). ibuprofen 2021-08 Yes [id number] 600mg Take 1 Univers 600 mg 0-07 101 tablet by ity of tablet 00:00: mouth [place] 00 every 6 Medical (six) Branch hours as needed for Pain (scale 4-6). ibuprofen 2021-08 Yes [id number] 600mg Take 1 Univers 600 mg 0-07 101 tablet by ity of tablet 00:00: mouth [place] 00 every 6 Medical (six) Branch hours as needed for Pain (scale 4-6). ibuprofen 2021-08 Yes [id number] 600mg Take 1 Univers 600 mg 0-07 101 tablet by ity of tablet 00:00: mouth [place] 00 every 6 Medical (six) Branch hours as needed for Pain (scale 4-6). ibuprofen 2021-08 Yes [id number] 600mg Take 1 Univers 600 mg 0-07 101 tablet by ity of tablet 00:00: mouth [place] 00 every 6 Medical (six) Branch hours as needed for Pain (scale 4-6). ibuprofen 2021-08 Yes [id number] 600mg Take 1 Univers 600 mg 0-07 101 tablet by ity of tablet 00:00: mouth [place] 00 every 6 Medical (six) Branch hours as needed for Pain (scale 4-6). ibuprofen 2021-08 Yes [id number] 600mg Take 1 Univers 600 mg 0-07 101 tablet by ity of tablet 00:00: mouth [place] 00 every 6 Medical (six) Branch hours as needed for Pain (scale 4-6). ibuprofen 2021-08 Yes [id number] 600mg Take 1 Univers 600 mg 0-07 101 tablet by ity of tablet 00:00: mouth [place] 00 every 6 Medical (six) Branch hours as needed for Pain (scale 4-6). ibuprofen 2021-08 Yes [id number] 600mg Take 1 Univers 600 mg 0-07 101 tablet by ity of tablet 00:00: mouth [place] 00 every 6 Medical (six) Branch hours as needed for Pain (scale 4-6). ibuprofen 2021-08 Yes [id number] 600mg Take 1 Univers 600 mg 0-07 101 tablet by ity of tablet 00:00: mouth [place] 00 every 6 Medical (six) Branch hours as needed for Pain (scale 4-6). ibuprofen 2021-08 Yes [id number] 600mg Take 1 Univers 600 mg 0-07 101 tablet by ity of tablet 00:00: mouth [place] 00 every 6 Medical (six) Branch hours as needed for Pain (scale 4-6). ibuprofen 2021-08 Yes [id number] 600mg Take 1 Univers 600 mg 0-07 101 tablet by ity of tablet 00:00: mouth [place] 00 every 6 Medical (six) Branch hours as needed for Pain (scale 4-6). chlorhexidi 2021-08 Yes [id number] 15mL Swish and Univers ne 0.12 % 0-07 101 spit out ity of mouthwash 00:00: [place] the Medical morning Branch and 15 mL in the evening. ibuprofen 2021-08 Yes [id number] 600mg Take 1 Univers 600 mg 0-07 101 tablet by ity of tablet 00:00: mouth [place] 00 every 6 Medical (six) Branch hours as needed for Pain (scale 4-6). chlorhexidi 2021-08 Yes [id number] 15mL Swish and Univers ne 0.12 % 0-07 101 spit out ity of mouthwash 00:00: 15 mL in [place] 00 the Medical morning Branch and 15 mL in the evening. ibuprofen 2021-08 Yes [id number] 600mg Take 1 Univers 600 mg 0-07 101 tablet by ity of tablet 00:00: mouth [place] 00 every 6 Medical (six) Branch hours as needed for Pain (scale 4-6). chlorhexidi 2021-08 Yes [id number] 15mL Swish and Univers ne 0.12 % 0-07 101 spit out ity of mouthwash 00:00: [place] 00 the Medical morning Branch and 15 mL in the evening. ibuprofen 2021-08 Yes [id number] 600mg Take 1 Univers 600 mg 0-07 101 tablet by ity of tablet 00:00: mouth [place] 00 every 6 Medical (six) Branch hours as needed for Pain (scale 4-6). chlorhexidi 2021-08 Yes [id number] 15mL Swish and Univers ne 0.12 % 0-07 101 spit out ity of mouthwash 00:00: [place] the Medical morning Branch and 15 mL in the evening. ibuprofen 2021-08 Yes [id number] 600mg Take 1 Univers 600 mg 0-07 101 tablet by ity of tablet 00:00: mouth [place] 00 every 6 Medical (six) Branch hours as needed for Pain (scale 4-6). chlorhexidi 2021-08 Yes [id number] 15mL Swish and Univers ne 0.12 % 0-07 101 spit out ity of mouthwash 00:00: [place] 00 the Medical morning Branch and 15 mL in the evening. ibuprofen 2021-08 Yes [id number] 600mg Take 1 Univers 600 mg 0-07 101 tablet by ity of tablet 00:00: mouth [place] 00 every 6 Medical (six) Branch hours as needed for Pain (scale 4-6). chlorhexidi 2021- Yes [id number] 15mL Swish and Univers ne 0.12 % 0-07 101 spit out ity of mouthwash 00:00: [place] 00 the Medical morning Branch and 15 mL in the evening. ibuprofen 2021-08 Yes [id number] 600mg Take 1 Univers 600 mg 0-07 101 tablet by ity of tablet 00:00: mouth [place] 00 every 6 Medical (six) Branch hours as needed for Pain (scale 4-6). chlorhexidi 2021-08 Yes [id number] 15mL Swish and Univers ne 0.12 % 0-07 101 spit out ity of mouthwash 00:00: [place] 00 the Medical morning Branch and 15 mL in the evening. ibuprofen 2021-08 Yes [id number] 600mg Take 1 Univers 600 mg 0-07 101 tablet by ity of tablet 00:00: mouth [place] 00 every 6 Medical (six) Branch hours as needed for Pain (scale 4-6). chlorhexidi 2021-08 Yes [id number] 15mL Swish and Univers ne 0.12 % 0-07 101 spit out ity of mouthwash 00:00: 15 [place] 00 the Medical morning Branch and 15 mL in the evening. ibuprofen 2021-08 Yes [id number] 600mg Take 1 Univers 600 mg 0-07 101 tablet by ity of tablet 00:00: mouth [place] 00 every 6 Medical (six) Branch hours as needed for Pain (scale 4-6). chlorhexidi 2021-08 Yes [id number] 15mL Swish and Univers ne 0.12 % 0-07 101 spit out ity of mouthwash 00:00: 15 [place] 00 the Medical morning Branch and 15 mL in the evening. ibuprofen 2021-08 Yes [id number] 600mg Take 1 Univers 600 mg 0-07 101 tablet by ity of tablet 00:00: mouth [place] 00 every 6 Medical (six) Branch hours as needed for Pain (scale 4-6). chlorhexidi 2021-08 Yes [id number] 15mL Swish and Univers ne 0.12 % 0-07 101 spit out ity of mouthwash 00:00: 15 [place] 00 the Medical morning Branch and 15 mL in the evening. ibuprofen 2021-08 Yes [id number] 600mg Take 1 Univers 600 mg 0-07 101 tablet by ity of tablet 00:00: mouth [place] 00 every 6 Medical (six) Branch hours as needed for Pain (scale 4-6). chlorhexidi 2021-08 Yes [id number] 15mL Swish and Univers ne 0.12 % 0-07 101 spit out ity of mouthwash 00:00: 15 [place] 00 the Medical morning Branch and 15 mL in the evening. ibuprofen 2021-08 Yes [id number] 600mg Take 1 Univers 600 mg 0-07 101 tablet by ity of tablet 00:00: mouth [place] 00 every 6 Medical (six) Branch hours as needed for Pain (scale 4-6). chlorhexidi 2021-08 Yes [id number] 15mL Swish and Univers ne 0.12 % 0-07 101 spit out ity of mouthwash 00:00: 15 [place] 00 the Medical morning Branch and 15 mL in the evening. acetaminoph 2021-08- No [id number] 650mg Take 2 Univers en 0-07 10-08 101 tablets by ity of (TYLENOL) 00:00: 04:59 mouth [place] 325 mg 00 :00 every 6 Medical tablet (six) Branch hours as needed for Alternate with ibuprofen for pain scale 4-6. acetaminoph 2021-08- No [id number] 650mg Take 2 Univers en 0-07 10-08 101 tablets by ity of (TYLENOL) 00:00: 04:59 mouth [place] 325 mg 00 :00 every 6 Medical tablet (six) Branch hours as needed for Alternate with ibuprofen for pain scale 4-6. acetaminoph 2021-08- No [id number] 650mg Take 2 Univers en 0-07 10-08 101 tablets by ity of (TYLENOL) 00:00: 04:59 mouth [place] 325 mg 00 :00 every 6 Medical tablet (six) Branch hours as needed for Alternate with ibuprofen for pain scale 4-6. acetaminoph 2021-08- No [id number] 650mg Take 2 Univers en 0-07 10-08 101 tablets by ity of (TYLENOL) 00:00: 04:59 mouth [place] 325 mg 00 :00 every 6 Medical tablet (six) Branch hours as needed for Alternate with ibuprofen for pain scale 4-6. acetaminoph 2021-08- No [id number] 650mg Take 2 Univers en 0-07 10-08 101 tablets by ity of (TYLENOL) 00:00: 04:59 mouth [place] 325 mg 00 :00 every 6 Medical tablet (six) Branch hours as needed for Alternate with ibuprofen for pain scale 4-6. acetaminoph 2021-08- No [id number] 650mg Take 2 Univers en 0-07 10-08 101 tablets by ity of (TYLENOL) 00:00: 04:59 mouth [place] 325 mg 00 :00 every 6 Medical tablet (six) Branch hours as needed for Alternate with ibuprofen for pain scale 4-6. acetaminoph 2021-08- No [id number] 650mg Take 2 Univers en 0-07 10-08 101 tablets by ity of (TYLENOL) 00:00: 04:59 mouth [place] 325 mg 00 :00 every 6 Medical tablet (six) Branch hours as needed for Alternate with ibuprofen for pain scale 4-6. acetaminoph 2021-08- No [id number] 650mg Take 2 Univers en 0-07 10-08 101 tablets by ity of (TYLENOL) 00:00: 04:59 mouth [place] 325 mg 00 :00 every 6 Medical tablet (six) Branch hours as needed for Alternate with ibuprofen for pain scale 4-6. acetaminoph 2021-08- No [id number] 650mg Take 2 Univers en 0-07 10-08 101 tablets by ity of (TYLENOL) 00:00: 04:59 mouth [place] 325 mg 00 :00 every 6 Medical tablet (six) Branch hours as needed for Alternate with ibuprofen for pain scale 4-6. acetaminoph 2021-08- No [id number] 650mg Take 2 Univers en 0-07 10-08 101 tablets by ity of (TYLENOL) 00:00: 04:59 mouth [place] 325 mg 00 :00 every 6 Medical tablet (six) Branch hours as needed for Alternate with ibuprofen for pain scale 4-6. acetaminoph 2021-08- No [id number] 650mg Take 2 Univers en 0-07 10-08 101 tablets by ity of (TYLENOL) 00:00: 04:59 mouth [place] 325 mg 00 :00 every 6 Medical tablet (six) Branch hours as needed for Alternate with ibuprofen for pain scale 4-6. acetaminoph 2021-08- No [id number] 650mg Take 2 Univers en 0-07 10-08 101 tablets by ity of (TYLENOL) 00:00: 04:59 mouth [place] 325 mg 00 :00 every 6 Medical tablet (six) Branch hours as needed for Alternate with ibuprofen for pain scale 4-6. acetaminoph 2021-08- No [id number] 650mg Take 2 Univers en 0-07 10-08 101 tablets by ity of (TYLENOL) 00:00: 04:59 mouth [place] 325 mg 00 :00 every 6 Medical tablet (six) Branch hours as needed for Alternate with ibuprofen for pain scale 4-6. acetaminoph 2021-08- No [id number] 650mg Take 2 Univers en 0-07 10-08 101 tablets by ity of (TYLENOL) 00:00: 04:59 mouth [place] 325 mg 00 :00 every 6 Medical tablet (six) Branch hours as needed for Alternate with ibuprofen for pain scale 4-6. acetaminoph 2021-2022- No [id number] 650mg Take 2 Univers en 0-07 10-08 101 tablets by ity of (TYLENOL) 00:00: 04:59 mouth [place] 325 mg 00 :00 every 6 Medical tablet (six) Branch hours as needed for Alternate with ibuprofen for pain scale 4-6. acetaminoph 2021-08- No [id number] 650mg Take 2 Univers en 0-07 10-08 101 tablets by ity of (TYLENOL) 00:00: 04:59 mouth [place] 325 mg 00 :00 every 6 Medical tablet (six) Branch hours as needed for Alternate with ibuprofen for pain scale 4-6. acetaminoph 2021-08- No [id number] 650mg Take 2 Univers en 0-07 10-08 101 tablets by ity of (TYLENOL) 00:00: 04:59 mouth [place] 325 mg 00 :00 every 6 Medical tablet (six) Branch hours as needed for Alternate with ibuprofen for pain scale 4-6. acetaminoph 2021-08- No [id number] 650mg Take 2 Univers en 0-07 10-08 101 tablets by ity of (TYLENOL) 00:00: 04:59 mouth [place] 325 mg 00 :00 every 6 Medical tablet (six) Branch hours as needed for Alternate with ibuprofen for pain scale 4-6. acetaminoph 2021-08- No [id number] 650mg Take 2 Univers en 0-07 10-08 101 tablets by ity of (TYLENOL) 00:00: 04:59 mouth [place] 325 mg 00 :00 every 6 Medical tablet (six) Branch hours as needed for Alternate with ibuprofen for pain scale 4-6. acetaminoph 2021-08- No [id number] 650mg Take 2 Univers en 0-07 10-08 101 tablets by ity of (TYLENOL) 00:00: 04:59 mouth [place] 325 mg 00 :00 every 6 Medical tablet (six) Branch hours as needed for Alternate with ibuprofen for pain scale 4-6. acetaminoph 2021-08- No [id number] 650mg Take 2 Univers en 0-07 10-08 101 tablets by ity of (TYLENOL) 00:00: 04:59 mouth [place] 325 mg 00 :00 every 6 Medical tablet (six) Branch hours as needed for Alternate with ibuprofen for pain scale 4-6. acetaminoph 2021-08- No [id number] 650mg Take 2 Univers en 0-07 10-08 101 tablets by ity of (TYLENOL) 00:00: 04:59 mouth [place] 325 mg 00 :00 every 6 Medical tablet (six) Branch hours as needed for Alternate with ibuprofen for pain scale 4-6. acetaminoph 2021-08- No [id number] 650mg Take 2 Univers en 0-07 10-08 101 tablets by ity of (TYLENOL) 00:00: 04:59 mouth [place] 325 mg 00 :00 every 6 Medical tablet (six) Branch hours as needed for Alternate with ibuprofen for pain scale 4-6. acetaminoph 2021-08- No [id number] 650mg Take 2 Univers en 0-07 10-08 101 tablets by ity of (TYLENOL) 00:00: 04:59 mouth [place] 325 mg 00 :00 every 6 Medical tablet (six) Branch hours as needed for Alternate with ibuprofen for pain scale 4-6. acetaminoph 2021-08- No [id number] 650mg Take 2 Univers en 0-07 10-08 101 tablets by ity of (TYLENOL) 00:00: 04:59 mouth [place] 325 mg 00 :00 every 6 Medical tablet (six) Branch hours as needed for Alternate with ibuprofen for pain scale 4-6. chlorhexidi 2021-08- No [id number] 15mL Swish and Univers ne 0.12 % 0-07 03-01 101 spit out ity o f mouthwash 00:00: 00:00 15 mL in [place] 00 :00 the Medical morning Branch and 15 mL in the evening. chlorhexidi 2021-08- No [id number] 15mL Swish and Univers ne 0.12 % 0-07 03-01 101 spit out ity o f mouthwash 00:00: 00:00 15 mL in [place] 00 :00 the Medical morning Branch and 15 mL in the evening. amoxicillin 2021-08- No [id number] 1{tbl} Take 1 Univers -clavulanat 0-07 10-15 101 tablet by it y of e 00:00: 04:59 mouth in [place] (AUGMENTIN) 00 :00 the Medical 875-125 mg morning Branch per tablet and 1 tablet in the evening. Do all this for 7 days. metroNIDAZO 2021-08- No [id number] 500mg Take 1 Univers LE (FLAGYL) 0-07 10-15 101 tablet by it y of 500 mg 00:00: 04:59 mouth [place] tablet 00 :00 every 12 Medical (twelve) Branch hours for 7 days. amoxicillin 2021-08- No [id number] 1{tbl} Take 1 Univers -clavulanat 0-07 10-15 101 tablet by it y of e 00:00: 04:59 mouth in [place] (AUGMENTIN) 00 :00 the Medical 875-125 mg morning Branch per tablet and 1 tablet in the evening. Do all this for 7 days. metroNIDAZO 2021-08- No [id number] 500mg Take 1 Univers LE (FLAGYL) 0-07 10-15 101 tablet by it y of 500 mg 00:00: 04:59 mouth [place] tablet 00 :00 every 12 Medical (twelve) Branch hours for 7 days. amoxicillin 2021-08- No [id number] 1{tbl} Take 1 Univers -clavulanat 0-07 10-15 101 tablet by it y of e 00:00: 04:59 mouth in [place] (AUGMENTIN) 00 :00 the Medical 875-125 mg morning Branch per tablet and 1 tablet in the evening. Do all this for 7 days. metroNIDAZO 2021-08- No [id number] 500mg Take 1 Univers LE (FLAGYL) 0-07 10-15 101 tablet by it y of 500 mg 00:00: 04:59 mouth [place] tablet 00 :00 every 12 Medical (twelve) Branch hours for 7 days. morpHINE (2 2021-08 Yes 2mg 2 mg, Slow Univers mg/mL) 0-05 IV Push, ity of injection 2 18:14: Q4HPRN, Kai as mg 35 Starting Medical on Thu Branch 05/21/22 at 1314, Until Discontinu ed, Routine, Pain (scale 7-10) morpHINE (2 2021-08 Yes 2mg 2 mg, Slow Univers mg/mL) [...] 2021-08- No PRN, Univers 2% viscous 0-05 05 Starting ity of (LIDOCAINE 15:56: 16:27 on [...] 0800, Until Discontinu ed, Routine ampicillin- 2021-08- No 3g 3 g, IV Un zeus [...] of Therapy: Other (see Comments) ampicillin- 2021-08- No 3g 3 g, IV Un zeus [...] Comments) lactated 2021-08- No 1000mL at 125 [facility] ers ringers IV 0-05 10-05 mL/hr, ity of infusion 03:45: 20:29 1,000 mL, Kai as 1,000 mL 00 :02 IV Medical Infusion, Branch CONTINUOUS , Starting on Thu05/20/22 at 2245, Until Thu05/21/22 at 1529, Routine lactated 2021-08 No 1000mL at 125 Univ ers ringers IV 0-05 10-05 mL/hr, ity of infusion 03:45: 20:29 1,000 mL, Kai as 1,000 mL 00 :02 IV Medical Infusion, Branch CONTINUOUS , Starting on Thu05/20/22 at 2245, Until 05/21/22 at 1529, Routine ketorolac 2021-08 Yes 15mg 15 mg, Univer s (TORADOL) 0-05 Slow IV ity of injection 03:29: Push, [place] 15 mg 07 Q6HPRN, 4 Medical doses, Branch Starting on Thu05/20/22 at 2229, Until Discontinu ed, Routine, Pain (scale 4-6) ketorolac 2021-08 No 15mg 15 mg, Unive rs (TORADOL) [...] mL 25 Starting Medi kiran oral on Thu Branch suspension 05/20/22 at 600 mg 2228, Until Discontinu ed, Routine, Pain (scale 1-3) ibuprofen 2021-08 No 600mg 600 mg, Uni vers (ADVIL 0-05 10-06 Oral, ity of CHILDREN'S) 03:28: 23:30 [place]/5 mL 25 :33 Starting Medi kiran oral on Thu Branch suspension 05/20/22 at 600 mg 2228, Until [place] 05/22/22 at 1830, Routine, Pain (scale 1-3) ondansetron 2021-08 Yes 4mg 4 mg, Slow Univers (ZOFRAN 0-05 IV Push, ity of (PF)) 03:28: Q4HPRN, [place] injection 4 21 Starting Medi kiran mg on e Branch 05/20/22 at 2228, Until Discontinu ed, Routine, Nausea and Vomiting (N/V) ondansetron 2021-08 Yes 4mg 4 mg, Slow Univers (ZOFRAN 0-05 IV Push, ity of (PF)) 03:28: Q4HPRN, [place] injection 4 21 Starting Medi kiran mg on Tue Branch 05/20/22 at 2228, Until Discontinu ed, Routine, Nausea and Vomiting (N/V) ampicillin- 2021-08 No 3g 3 g, IV [...] dental
Duration of Therapy: 7 days iopamidol 2021-08 No [id number] 70mL 70 mL, Univers (ISOVUE 0-05 10-05 [...] of Therapy: 7 days iopamidol 2021-08- No [id number] 70mL 70 mL, Univers (ISOVUE 0-05 10-05 [...] 00 :00 dose, On Medi kiran mg [facility] 05/20/22 at 1915, ANTOINETTE ondansetron 2021-08- No 4mg 4 mg, Slow Univers (ZOFRAN 0-05 10-05 IV Push, ity of (PF)) 00:15: 01:16 ONCE, 1 [place] injection 4 00 :00 dose, On Medi kiran mg [facility] 05/20/22 at 1915, ANTOINETTE ketorolac 2021-08 No 30mg 30 mg, Unive rs (TORADOL) 0-05 10-05 Slow IV ity of injection 00:00: 01:16 Push, [place] 30 mg 00 :00 ONCE, 1 Medical dose, On [facility] 05/20/22 at 1900, Routine ketorolac 2021-08 No 30mg 30 mg, Unive rs (TORADOL) 0-05 10-05 Slow IV ity of injection 00:00: 01:16 Push, [place] 30 mg 00 :00 ONCE, 1 Medical dose, On [facility] 05/20/22 at 1900, Routine OLANZapine 2021-08 Yes 2.5mg Take 2.5 Un zeus 5 mg tablet 0-04 mg by ity of 23:41: mouth [place] 15 daily. Medical Branch amoxicillin 2021-08 Yes [id number] 1{tbl} Take 1 Univers -clavulanat 0-04 101 tablet by ity of e 875-125 00:00: mouth [place] mg per 00 every 12 Medical tablet (twelve) Branch hours. ibuprofen 2021-08 Yes [id number] 800mg Take 1 Univers 800 mg 0-04 101 tablet by ity of tablet 00:00: mouth [place] 00 every 6 Medical (six) Branch hours as needed for Pain (scale 4-6). amoxicillin 2021-08- No [id number] 1{tbl} Take 1 Univers -clavulanat 0-04 10-07 101 tablet by it y of e 875-125 00:00: 00:00 mouth [place] mg per 00 :00 every 12 Medical tablet (twelve) Branch hours. ibuprofen 2021-08- No [id number] 800mg Take 1 Univers 800 mg 0-04 10-07 101 tablet by ity of tablet 00:00: 00:00 mouth [place] 00 :00 every 6 Medical (six) Branch hours as needed for Pain (scale 4-6). OLANZapine 2-0 Yes 2.5mg Take 2.5 Un zeus 5 mg tablet 6-12 mg by ity of 04:20: mouth [place] 01 daily. Medical Branch OLANZapine 2-0 Yes 2.5mg Take 2.5 Un zeus 5 mg tablet 6-12 mg by ity of 04:20: mouth [place] 01 daily. Medical Branch OLANZapine 2-0 Yes 2.5mg Take 2.5 Un zeus 5 mg tablet 6-12 mg by ity of 04:20: mouth [place] 01 daily. Medical Branch OLANZapine 2-0 Yes 2.5mg Take 2.5 Un zeus 5 mg tablet 6-12 mg by ity of 04:20: mouth [place] 01 daily. Medical Branch OLANZapine 2021-0 Yes 2.5mg Take 2.5 Un zeus 5 mg tablet 6-12 mg by ity of 04:20: mouth [place] 01 daily. Medical Branch OLANZapine 2-0 Yes 2.5mg Take 2.5 Un zeus 5 mg tablet 6-12 mg by ity of 04:20: mouth [place] 01 daily. Medical Branch OLANZapine 2-0 Yes 2.5mg Take 2.5 Un zeus 5 mg tablet 6-12 mg by ity of 04:20: mouth [place] 01 daily. Medical Branch acetaminoph 2021-0 Yes [id number] 650mg Take 2 Univers en 325 mg 6-10 tablets by ity of tablet 00:00: mouth [place] 00 every 6 Medical (six) Branch hours as needed for Pain (scale 1-3). ibuprofen 2-0 Yes [id number] 600mg Take 1 Univers 600 mg 6-10 tablet by ity of tablet 00:00: mouth [place] 00 every 6 Medical (six) Branch hours as needed for Pain (scale 4-6). acetaminoph 2022-0 Yes [id number] 650mg Take 2 Univers en 325 mg 6-10 tablets by ity of tablet 00:00: mouth [place] 00 every 6 Medical (six) Branch hours as needed for Pain (scale 1-3). ibuprofen 2-0 Yes [id number] 600mg Take 1 Univers 600 mg 6-10 tablet by ity of tablet 00:00: mouth [place] 00 every 6 Medical (six) Branch hours as needed for Pain (scale 4-6). acetaminoph 2022-0 Yes [id number] 650mg Take 2 Univers en 325 mg 6-10 tablets by ity of tablet 00:00: mouth [place] 00 every 6 Medical (six) Branch hours as needed for Pain (scale 1-3). ibuprofen 2022-0 Yes [id number] 600mg Take 1 Univers 600 mg 6-10 tablet by ity of tablet 00:00: mouth [place] 00 every 6 Medical (six) Branch hours as needed for Pain (scale 4-6). acetaminoph 2022-0 Yes [id number] 650mg Take 2 Univers en 325 mg 6-10 tablets by ity of tablet 00:00: mouth [place] 00 every 6 Medical (six) Branch hours as needed for Pain (scale 1-3). ibuprofen 2-0 Yes [id number] 600mg Take 1 Univers 600 mg 6-10 tablet by ity of tablet 00:00: mouth [place] 00 every 6 Medical (six) Branch hours as needed for Pain (scale 4-6). acetaminoph 2022-0 Yes [id number] 650mg Take 2 Univers en 325 mg 6-10 tablets by ity of tablet 00:00: mouth [place] 00 every 6 Medical (six) Branch hours as needed for Pain (scale 1-3). ibuprofen 2-0 Yes [id number] 600mg Take 1 Univers 600 mg 6-10 tablet by ity of tablet 00:00: mouth [place] 00 every 6 Medical (six) Branch hours as needed for Pain (scale 4-6). acetaminoph 2022-0 Yes [id number] 650mg Take 2 Univers en 325 mg 6-10 tablets by ity of tablet 00:00: mouth [place] 00 every 6 Medical (six) Branch hours as needed for Pain (scale 1-3). ibuprofen 2022-0 Yes [id number] 600mg Take 1 Univers 600 mg 6-10 tablet by ity of tablet 00:00: mouth [place] 00 every 6 Medical (six) Branch hours as needed for Pain (scale 4-6). acetaminoph 2022-0 Yes [id number] 650mg Take 2 Univers en 325 mg 6-10 tablets by ity of tablet 00:00: mouth [place] 00 every 6 Medical (six) Branch hours as needed for Pain (scale 1-3). ibuprofen 2022-0 Yes [id number] 600mg Take 1 Univers 600 mg 6-10 tablet by ity of tablet 00:00: mouth [place] 00 every 6 Medical (six) Branch hours as needed for Pain (scale 4-6). acetaminoph Yes [id number] 650mg Take 2 Univers en 325 mg 6-10 tablets by ity of tablet 00:00: mouth [place] 00 every 6 Medical (six) Branch hours as needed for Pain (scale 1-3). ibuprofen Yes [id number] 600mg Take 1 Univers 600 mg 6-10 tablet by ity of tablet 00:00: mouth [place] 00 every 6 Medical (six) Branch hours as needed for Pain (scale 4-6). acetaminoph 2021- No [id number] 650mg Take 2 Univers en 325 mg 6-10 10-07 tablets by ity of tablet 00:00: 00:00 mouth [place] 00 :00 every 6 Medical (six) Branch hours as needed for Pain (scale 1-3). ibuprofen 2021- No [id number] 600mg Take 1 Univers 600 mg 6-10 10-07 tablet by ity of tablet 00:00: 00:00 mouth [place] 00 :00 every 6 Medical (six) Branch hours as needed for Pain (scale 4-6). cyclobenzap 2020-08 No 1mg rine 5 mg 2-14 tablet 00:00: 00 azithromyci 2018-0 No 2mg n 500 mg 9-17 tablet 00:00: 00 fluoxetine 2019-0 No 1mg 20 mg 9-09 tablet 00:00: 00 prednisone 2019-0 No mg 10 mg 9-09 tablet 00:00: 00 Dose 2019-0 No Unknown 9-09 00:00: 00 Dose 2019-0 No Unknown 9-09 00:00: 00 Zofran 4 mg 2019-0 No 1mg tablet 8-21 00:00: 00 Vital Signs Vital Name Observation Time Observation Value Comments Source Systolic blood 2022-11-07 18:04:00 144 mm[Hg] Univer sity [facility] Diastolic blood 2022-11-07 18:04:00 101 mm[Hg] Unive [facility] Heart rate 2022-11-07 17:54:00 82 /min [facility] Body temperature 2022-11-07 17:54:00 36.44 Xin Univ ersity [facility] [place] [facility] Respiratory rate 2022-11-07 17:54:00 18 /min Univ ers[facility] [place] [facility] Body height 2022-11-07 17:54:00 157.5 cm [facility]i ty [facility] [place] [facility] [place] Body weight 2022-11-07 17:54:00 56.836 kg Universi ty [facility] [place] [facility] BMI 2022-11-07 17:54:00 22.92 kg/m2 Universi ty of [place] [facility] Systolic blood 2022-11-04 19:41:00 130 mm[Hg] Univer sity of pressure [place] [facility] Diastolic blood 2022-11-04 19:41:00 75 mm[Hg] Unive rsity of pressure [facility] Branch Heart rate 2022-11-04 19:41:00 77 /min Universi ty of [facility] Body temperature 2022-11-04 19:41:00 37 Xin Univ ersity of [facility] Respiratory rate 2022-11-04 19:41:00 18 /min Univ ersity of [facility] Oxygen saturation in 2022-11-04 19:41:00 100 /min [facility] Arterial blood by [facility] Pulse oximetry Branch Body weight 2022-11-04 14:05:00 58.968 kg Universi ty of [place] [facility] BMI 2022-11-04 14:05:00 23.78 kg/m2 Universi ty of [place] [facility] Branch Systolic blood 2022-10-15 20:04:00 111 mm[Hg] Univer sity of [facility] [place] [facility] [place] Diastolic blood 2022-10-15 20:04:00 77 mm[Hg] Unive rsity of pressure [place] [facility] Heart rate 2022-10-15 20:04:00 70 /min Universi ty [facility] [place] [facility] Body temperature 2022-10-15 20:04:00 36.11 Xin Univ ers[facility] [place] [facility] Respiratory rate 2022-10-15 20:04:00 18 /min Univ ersity of [place] [facility] Branch Body height 2022-10-15 20:04:00 157.5 cm Universi ty [facility] [place] [facility] [place] Body weight 2022-10-15 20:04:00 60.328 kg Universi ty [facility] [place] [facility] BMI 2022-10-15 20:04:00 24.33 kg/m2 [facility]i ty [facility] [place] [facility] Systolic blood 2022-08-18 15:31:00 115 mm[Hg] Univer sity of [facility] [place] [facility] Diastolic blood 2022-08-18 15:31:00 78 mm[Hg] Unive rsity of pressure [place] [facility] Heart rate 2022-08-18 15:31:00 59 /min Universi ty of [facility] Body temperature 2022-08-18 15:31:00 36.83 Xin Univ ersity of [place] [facility] Branch Respiratory rate 2022-08-18 15:31:00 18 /min Univ ersity of [facility] Body height 2022-08-18 15:31:00 157.5 cm Universi ty [facility] [place] [facility] [place] Body weight 2022-08-18 15:31:00 58.287 kg Universi ty [facility] [place] [facility] BMI 2022-08-18 15:31:00 23.50 kg/m2 Universi ty of [facility] Oxygen saturation in 2022-08-18 15:31:00 99 /min University of Arterial blood by [facility] Pulse oximetry Branch Systolic blood 2022-06-03 15:14:00 126 mm[Hg] Univer sity of pressure [place] [facility] Diastolic blood 2022-06-03 15:14:00 81 mm[Hg] Unive rsity of pressure [facility] Heart rate 2022-06-03 15:14:00 77 /min [facility]i ty [facility] [place] [facility] [place] Body temperature 2022-06-03 15:14:00 37.22 Xin Univ ersity of [facility] Body height 2022-06-03 15:14:00 157.5 cm Universi ty [facility] [place] [facility] Body weight 2022-06-03 15:14:00 56.246 kg Universi ty [facility] [place] [facility] BMI 2022-06-03 15:14:00 22.68 kg/m2 Universi ty of [place] [facility] Branch Systolic blood 2022-05-23 13:01:00 133 mm[Hg] Univer sity of pressure [place] [facility] Branch Diastolic blood 2022-05-23 13:01:00 89 mm[Hg] Unive rsity of pressure [facility] Heart rate 2022-05-23 13:01:00 88 /min Universi ty of [facility] Body temperature 2022-05-23 13:01:00 36.89 Xin Univ ers[facility] [place] [facility] Respiratory rate 2022-05-23 13:01:00 16 /min Univ ers[facility] [place] [facility] Oxygen saturation in 2022-05-23 13:01:00 99 /min University of Arterial blood by [facility] Pulse oximetry Branch Body weight 2022-05-20 23:15:00 55.792 kg [facility]i ty [facility] [place] [facility] BMI 2022-05-20 23:15:00 22.50 kg/m2 Universi ty [facility] [place] [facility] Systolic blood 2022-05-21 16:45:00 145 mm[Hg] Univer sity of [facility] [place] [facility] Diastolic blood 2022-05-21 16:45:00 83 mm[Hg] Unive rsity of [facility] [place] [facility] Respiratory rate 2022-05-21 16:45:00 16 /min Univ ersity [facility] [place] [facility] Oxygen saturation in 2022-05-21 16:45:00 100 /min University of Arterial blood by [facility] Pulse oximetry Branch Heart rate 2022-05-21 16:20:00 85 /min Universi ty of [place] [facility] Body temperature 2022-05-21 16:20:00 36.39 Xin Univ [facility] [place] [facility] Body weight 2022-05-20 23:15:00 55.792 kg [facility]i ty [facility] [place] [facility] BMI 2022-05-20 23:15:00 22.50 kg/m2 [facility]i ty [facility] [place] [facility] Systolic blood 2022-05-08 19:04:00 148 mm[Hg] Univer sity of [facility] [place] [facility] Diastolic blood 2022-05-08 19:04:00 89 mm[Hg] Unive rsity of [facility] [place] [facility] Heart rate 2022-05-08 19:04:00 83 /min Universi ty [facility] [place] [facility] Body temperature 2022-05-08 19:04:00 37.06 Xin Univ [facility] [place] [facility] Body height 2022-05-08 19:04:00 157.5 cm Universi ty [facility] [place] [facility] Body weight 2022-05-08 19:04:00 55.656 kg [facility]i ty [facility] [place] [facility] BMI 2022-05-08 19:04:00 22.44 kg/m2 [facility] [place] [facility] Oxygen saturation in 2022-05-08 19:04:00 100 /min [facility] Arterial blood by [facility] Pulse oximetry Branch Systolic blood 2022-03-31 16:36:00 126 mm[Hg] Univer sity of pressure [facility] Diastolic blood 2022-03-31 16:36:00 86 mm[Hg] Unive rsity of [facility] Heart rate 2022-03-31 16:36:00 76 /min Universi ty [facility] Body temperature 2022-03-31 16:36:00 36.22 Xin [facility] 2022-03-31 16:36:00 16 /min [facility] Body height 2022-03-31 16:36:[address] [facility] Body weight 2022-03-31 16:36:[address] [facility] BMI 2022-03-31 16:36:00 22.46 kg/m2 [facility] BP Systolic 2022-07-14 11:21:00 123 mm[Hg] BP [...] Date / Time Performing Clinician Source Performed URINALYSIS 2022-11-04 15:50:00 Marciano Wayne [facility] BASIC METABOLIC PANEL 2022-11-04 15:30:00 Marciano Wayne [facility] (NA, K, CL, CO2, Medical Branch GLUCOSE, BUN, CREATININE, CA) CBC WITH DIFF 2022-11-04 15:30:00 Marciano Wayne [facility] CONSENT/REFUSAL FOR 2022-11-04 13:58:51 Doctor Unassigned, No Un [facility] DIAGNOSIS AND TREATMENT Name Medical Branch US PELVIS COMPLETE WITH 2022-10-28 18:57:42 Felisa Davis [facility] TRANSVAGINAL [facility] Branch CBC WITH DIFF 2022-10-15 21:08:00 Ryan Felisa [place] [facility] PATIENT QUESTIONNAIRE 2022-08-18 06:01:00 Doctor Unassigned, No [facility] CBC WITH DIFF 2022-05-23 10:24:00 Kennedy Young [facility] CBC WITH DIFF 2022-05-22 10:42:00 Kennedy Young [facility] INCISION AND DRAINAGE 2022-05-21 15:35:00 [facility] ORAL CAVITY [facility] Branch TOOTH EXTRACTION 2022-05-21 15:35:00 [facility] INCISION AND DRAINAGE 2022-05-21 15:35:00 [facility] ORAL CAVITY [facility] Branch TOOTH EXTRACTION 2022-05-21 15:35:00 [facility] CBC WITH DIFF 2022-05-21 09:58:00 Kennedy Young [facility] CBC WITH DIFF 2022-05-21 09:58:00 Kennedy Young [facility] CT 2022-05-21 01:00:55 Ibikunle, Landonusho F [facility] MAXILLOFACIAL/MANDIBLE W [facility] CONTRAST CT 2022-05-21 01:00:55 IbikunleLandonusho F [facility] MAXILLOFACIAL/MANDIBLE W Medical Branch CONTRAST COMP. METABOLIC PANEL 2022-05-21 00:37:00 Cristy [facility] [place] [id number] CBC WITH DIFF 2022-05-21 00:37:[address] [facility] COMP. METABOLIC PANEL 2022-05-21 00:37:00 Cristy [facility] [place] [id number] CBC WITH DIFF 2022-05-21 00:37:[address] [facility] CONSENT/REFUSAL FOR 2022-05-20 23:16:33 Doctor Unassigned, No Un [facility] DIAGNOSIS AND TREATMENT [facility] CONSENT/REFUSAL FOR 2022-05-20 23:16:33 [facility] Name Medical Branch DISCLOSURE AND CONSENT, 2022-05-08 05:01:00 Doctor Unassigned, N o [facility] MEDICAL AND SURGICAL Name Medical Bra nch PROCEDURES REFERRAL- 2022-04-24 05:01:00 Doctor Unassigned, No Univer [facility] REQUEST/RESPONSE Name Medical Branch Plan of Care Planned Activity Planned Date Details Comments Source Goal Plan of Care Note [code = 44622-4] Goal Plan of Care Note [code = 47021-3] Goal Plan of Care Note [code = 93142-3] Goal Plan of Care Note [code = 16510-5] Goal Plan of Care Note [code = 34286-3] Goal Plan of Care Note [code = 84183-9] Goal Plan of Care Note [code = 95941-8] Goal Plan of Care Note [code = 59426-1] Goal Plan of Care Note [code = 33404-6] Goal Plan of Care Note [code = 21610-3] Goal Plan of Care Note [code = 77618-9] Goal Plan of Care Note [code = 51123-2] Goal Plan of Care Note [code = 70261-7] Goal Plan of Care Note [code = 74546-4] Goal Plan of Care Note [code = 99841-8] Goal Plan of Care Note [code = 59837-8] Goal Plan of Care Note [code = 35206-1] Goal Plan of Care Note [code = 55434-6] Goal Plan of Care Note [code = 45088-3] Goal Plan of Care Note [code = 02951-9] Goal Plan of Care Note [code = 93558-8] Encounters Start End Encounter Admission Attending Care Care Encounter Source Date/Time Date/Time Type Type Clinicians Facility Department ID 2021-12-24 Outpatient Shari JOSHUA MDSHAQ PHYSICIST ASTROPHYSICS [id number] Univers 13:43[facility] 2021-[facility]23 Outpatient Shari JOSHUA MDSHAQ PHYSICIST ASTROPHYSICS [id number] Univers 07:21:46 [facility] 2023-05-18 2023-05-18 Outpatient Shari CANTU [facility] [id number] Univers 14:30:00 14:30:00 SHANDRA ity of [facility] 2023-04-01 2023-04-01 Patient Doctor KEYUR 1.2.840.114 [id number] Univers 00:00:00 00:00:00 Secure Msg Unassigned, SARINA [id number] ity of [place] [facility] 4.2.7.2.686 Kai as [phone] [address] 2023-03-31 2023-03-31 Patient Doctor KEYUR 1.2.840.114 [id number] Univers 00:00:00 00:00:00 Secure Msg Unassigned, SARINA 350.1.13.10 ity of [place] [facility] 4.2.7.2.686 [place] as [id number] [address] 2022-11-14 2022-11-14 Patient Doctor [facility] 1.2.840.114 [id number] Univers 00:00:00 00:00:00 Secure Msg Unassigned, GLOVE MAKER 350.1.13.10 ity of [place] [facility] 4.2.7.2.686 Kai as MATERNAL [id number] Med ical & CHILD [address] [place] [address] 2022-11-07 2022-11-07 Outpatient R GREGORIO [facility] [id number] Univers 13:00:00 13:54:22 MARINO childress [facility] 2022-11-07 2022-11-07 Office Pgy3 UNIVERSIT [id number] Univers 13:00:00 13:54:22 Visit Marino Wills [facility] 350.1.13.10 ity of [place] [id number] [address] 2022-11-04 2022-11-04 Emergency [facility] [id number] Univers 09:06:00 15:02:00 , MARCIANO ity [facility] 2022-11-04 2022-11-04 [facility] TRAUMA 1.2.840.114 [id number] Univers 09:06:00 15:02:00 , Marciano [place] 350.1.13.10 [place] [id number] [facility] 014 Branch 2022-11-03 2022-11-03 Telephone UNA Davis 1.2.840.114 [id number] Univers 00:00:00 00:00:00 [facility] 350.1.13.10 i ty of [place] 4[place]2.[place] [id number] [facility] 113 Branch 2022-10-28 2022-10-28 Outpatient R RYAN [facility] [id number] Univers 13:07:55 23:59:00 [facility] 2022-10-28 2022-10-28 Hospital KAMALJIT Davis 1.2.840.114 [id number] Univers 13:07:55 23:59:00 Encounter [facility] 350.1.13.10 ity of [place] [id number] [facility] 806 Branch 2022-10-15 2022-10-15 [facility] [id number] Univers 13:30:00 15:10:01 [facility] 2022-10-15 2022-10-15 Office UNA Davis [id number] Univers 13:30:00 15:10:01 Visit [facility] 350.1.13.10 i ty of [place] [id number] [facility] 113 Branch 2022-08-18 2022-08-18 Engineering Operations Leader Pcp-Lab [facility] 1.2.840.114 [id number] Univers 11:30:00 11:45:00 Visit Jimmy [place] 350.1.13.10 [place] [id number] Hi dical 366 Branch 2022-08-18 2022-08-18 Outpatient R JONATHAN [facility] [id number] Univers 09:40:00 10:58:45 [facility] 2022-08-18 2022-08-18 Office Sharan Benjamin [facility] 1.2.8 [id number] Univers 09:40:00 10:58:45 Visit Jimmy Carroll PRIMARY 350.1.13.10 ity of [place]2.[place] [id number] Hi dical 044 Branch 2022-08-18 2022-08-18 Orders Doctor KEYUR 1.2.840.114 [id number] Univers 00:00:00 00:00:00 Only Unassigned, SARINA 350.1.13.10 ity of [place] [facility] 4.2.7.2.686 Kai as [phone] [facility] 009 Branch 2022-07-22 2022-07-22 Outpatient [facility] [id number] Kp 14:00:34 14:00:34 1206 F [place] 2022-07-18 2022-07-18 Nurse KEYUR Hadley 1.2.840.114 [id number] Univers 00:00:00 00:00:00 Triage Katy SARINA 350.1.13.10 it y of HOSPITAL 4.2.7.2.686 [place] as [id number] [facility] [facility] [address] 2022-07-18 2022-07-18 Telephone UNA Davis 1.2.840.114 [id number] Univers 00:00:00 00:00:00 [facility] 350.1.13.10 i ty of CL[place] [id number] [facility] [address] 2022-07-14 2022-07-14 Outpatient [facility] [id number] Kp 11:05:24 11:05:24 1128 F [place] 2022-07-14 2022-07-14 Outpatient [id number] 00:00:00 00:00:00 Visit [id number] 2022-07-01 2022-07-01 Patient ALEXANDRIA Skinner 1.2.840.114 [id number] Univers 00:00:00 00:00:00 Outreach Simeon STYLES 350.1.13.10 [place] [id number] [facility] [address] 2022-06-16 2022-06-16 Patient ALEXANDRIA Skinner 1.2.840.114 [id number] Univers 00:00:00 00:00:00 Outreach Simeon STYLES 350.1.13.10 [place] [id number] [facility] [address] 2022-06-03 2022-06-03 Outpatient R CHAD [facility] [id number] Univers 10:00:00 10:23:42 SURESH childress [facility] 2022-06-03 2022-06-03 Office Chad [facility] 1.2.511.630 [id number] Univers 10:00:00 10:23:42 Visit Suresh Hemphill [facility] 350.1.13.10 ity of [facility] [place] [id number] [facility] [address] 2022-05-26 2022-05-26 Telephone [facility] 1.2.419.496 [id number] Univers 00:00:00 00:00:00 Suresh LOYOLA 350.1.13.10 ity of [facility] [place] [phone] [facility] [address] 2022-05-20 2022-05-23 [facility] [id number] Univers 18:17:00 13:28:00 SURESH childress [facility] 2022-05-20 2022-05-23 Emergency Cristy Lowe 1.2. 840.114 [id number] Univers 18:17:00 13:28:00 Suresh Bonilla 350.1.13.10 ity of HOSPITAL 4.2.7.2.686 [place] [id number] [facility] [address] 2022-05-23 2022-05-23 Transition ALEXANDRIA Benitez 1.2.840.114 [id number] Univers 00:00:00 00:00:00 of Care Peggy STYLES 350.1.13.10 [place] [id number] [facility] [address] 2022-05-21 2022-05-21 Surgery ChadMACIEL 1.2.840.114 [id number] Univers 10:24:00 11:48:00 Suresh BRANCH 350.1.13.10 ity of [facility] 4.2.7.2.686 [place] [id number] [facility] [address] 2022-05-20 2022-05-20 Telephone [facility] 1.2.840.114 [id number] Univers 00:00:00 00:00:00 Chau LOYOLA 350.1.13.10 i ty of [facility] [place].2.[place] [id number] [facility] [address] 2022-05-08 2022-05-08 Office Mehul [facility] 1.2.840.114 [id number] Univers 14:00:00 14:30:00 Visit Chau Mccarthy [facility] 350.1.13.10 i ty of [facility] [place].2.[place] [id number] [facility] [address] 2022-05-08 2022-05-08 Outpatient R MEHUL [facility] [id number] Univers 14:00:00 14:00:00 CHAU childress [facility] 2022-05-08 2022-05-08 Orders Doctor BAER 1.2.840.114 [id number] Univers 00:00:00 00:00:00 Only UnassignedSARINA 350.1.13.10 ity of [place] [facility] 4.2.7.2.686 [place] as [id number] [facility] [address] 2022-04-29 2022-04-29 Outpatient Shari BONILLA [facility] [id number] Univers 10:00:00 10:00:00 SURESH childress [facility] 2022-04-24 2022-04-24 Orders Doctor BAER 1.2.840.114 [id number] Univers 00:00:00 00:00:00 Only UnassignedSARINA 350.1.13.10 ity of [place] [facility] 4.2.7.2.686 [place] [id number] [facility] [address] 2022-03-31 2022-03-31 Office KAMALJIT Davis 1.2.948.223 [id number] Univers 11:15:00 11:48:34 Visit [facility] 350.1.13.10 i ty of CL[place] [id number] [facility] [address] 2022-03-31 2022-03-31 [facility] [id number] Univers 11:15:00 11:48:34 [facility] 2022-03-31 2022-03-31 Out[facility] [id number] Univers 11:15:00 11:15:00 [facility] 2022-01-25 2022-01-25 Telephone UNA Joshua 1.2.840.114 [id number] Univers 00:00:00 00:00:00 [facility] 350.1.13.10 i ty of [facility] [place].2.[place] [id number] [facility] [address] 2022-01-23 2022-01-24 Outpatient R JOSIANE [facility] PHYSICIST ASTROPHYSICS [id number] Univers 05:56:00 16:20:00 HARDY ity [facility] 2022-01-23 2022-01-24 Hospital MACIEL Joshua 1.2.840.114 [id number] Univers 05:56:00 16:20:00 Encounter Hardy SARINA 350.1.13.10 ity [facility] 4.2.7.2.686 [place] [phone] [facility] [address] 2022-01-23 2022-01-23 Surgery MACIEL Joshua 1.2.840.114 [id number] Univers 07:00:00 12:15:00 Hardy SARINA 350.1.13.10 it y [facility] 4.2.7.2.686 [place] [phone] [facility] [address] 2022-01-23 2022-01-23 Orders Doctor BAER 1.2.840.114 [id number] Univers 00:00:00 00:00:00 Only Unassigned, SARINA 350.1.13.10 ity of [place] [facility] 4.2.7.2.686 [place] as [id number] [facility] [address] 2022-01-21 2022-01-21 Telephone Pgy3 UNIVERSIT 1.2.840.114 [id number] Univers 00:00:00 00:00:00 Y HEALTH 350.1.13.10 i ty of [place] [id number] [facility] [address] 2022-01-20 2022-01-20 Telephone KEYUR Locke 1.2.840.114 [id number] Univers 00:00:00 00:00:00 Arianan BRANCH 350.1.13.10 it y of [facility] 4.2.7.2.686 [place] [id number] [facility] [address] 2022-01-16 2022-01-16 Patient Jewel [facility] 1.2.840.114 [id number] Univers 00:00:00 00:00:00 Secure Msg Otis LICONA 350.1.13.10 ity of [facility] 4.2.7.2.[place] [facility] [phone] [facility] 2022-01-15 2022-01-15 Outpatient R JEWEL, [facility] [id number] Univers 07:44:45 23:59:00 OTIS le [facility] 2022-01-15 2022-01-15 Outpatient R JEWEL, [facility] [id number] Univers 07:43:28 07:43:28 OTIS le [facility] 2022-01-14 2022-01-14 Laboratory Only, Adc Test [facility] 1.2.840. 114 [id number] Univers 08:45:00 09:00:00 Only Otis Holloway 350.1.13.10 ity of [place].2.[place] [id number] [facility] [address] 2022-01-14 2022-01-14 Outpatient R JEWEL [facility] [id number] Univers 08:45:00 08:45:00 OTIS zavalay o f [facility] 2022-01-10 2022-01-10 Patient Melanie Lou 1.2.840.114 [id number] Univers 00:00:00 00:00:00 Outreach E STYLES 350.1.13.10 i ty of [place].2.[place] [id number] [facility] [address] 2021-12-27 2021-12-27 Outpatient R SULEIMAN, [facility] [id number] Univers 13:00:00 13:00:00 [facility] ity [facility] 2021-12-27 2021-12-27 Outpatient R SULEIMAN, [facility] [id number] Univers 13:00:00 13:00:00 [facility] 2021-12-27 2021-12-27 Outpatient R JEWEL, [facility] [id number] Univers 09:00:00 09:00:00 ALBERTOVICKIEANGELINA lucasanat delgado [facility] 2021-12-25 2021-12-25 Office Jewel, [facility] 1.2.840.114 [id number] Univers 10:00:00 10:29:11 Visit Otis LICONA 350.1.13.10 ity of [place].7.2.[place] [id number] [place] 122929 [facility] 2021-12-25 2021-12-25 Outpatient R JEWEL, [facility] [id number] Univers 10:00:00 10:29:11 LYLYANGELINA lucasanat delgado [facility] 2021-12-25 2021-12-25 Outpatient R JEWEL, [facility] [id number] Univers 10:00:00 10:00:00 OTIS zavalay o [facility] 2021-12-22 2021-12-22 Patient UNA Cantu 1.2.840.114 [id number] Univers 00:00:00 00:00:00 Secure Msg Perryen [facility] 350.1.13.10 ity of [facility] [place]2.[place] [id number] [facility] [address] 2021-12-22 2021-12-22 Prep For KEYUR Cantu 1.2.588.631 [id number] Univers 00:00:00 00:00:00 Surgery Eliz SARINA 350.1.13.10 it y of [facility] 4.2.7.2.686 [place] [phone] [facility] [address] 2021-12-22 2021-12-22 Case KAMALJIT CantuIT 1.2.840.114 [id number] Univers 00:00:00 00:00:00 Management Eliz Olvera [facility] 350.1.13.10 ity of [facility] 4.[place].2.[place] [id number] [facility] [address] 2021-12-18 2021-12-18 Patient Doctor KEYUR 1.2.840.114 [id number] Univers 00:00:00 00:00:00 Secure Msg Unassigned, SARINA 350.1.13.10 ity of [place] [facility] 4.2.7.2.686 [place] [phone] [facility] [address] 2021-12-11 2021-12-11 Outpatient R JOSIANE [facility] PHYSICIST ASTROPHYSICS [id number] Univers 15:30:00 15:30:00 HARDY [facility] 2021-12-09 2021-12-09 Laboratory Only, Adc Test [facility] 1.2.840. 114 [id number] Univers 10:45:00 11:00:00 Only Shawn Agudelo 350.1.13.10 ity [facility] [place].2.[place].2.[place] [id number] [facility] [address] 2021-12-09 2021-12-09 Outpatient Shari AGUDELO [facility] [id number] Univers 10:45:00 10:45:00 SHAWN anat [facility] 2021-12-09 2021-12-09 Outpatient Shari AGUDELO [facility] [id number] Univers 10:45:00 10:45:00 SHAWN anat [facility] 2021-12-09 2021-12-09 Telephone KEYUR Gonzalez 1.2.851.582 [id number] Univers 00:00:00 00:00:00 Theodora BRANCH 350.1.13.10 it y of [facility] 4.2.7.2.686 [place] [phone] [facility] [address] 2021-12-06 2021-12-06 Emergency X KAREN, [facility] ERT [id number] Univers 15:32:00 17:11:00 CYNISE ity [facility] 2021-12-06 2021-12-06 Emergency Karen, TRAUMA 1.2.774.217 [id number] Univers 15:32:00 17:11:00 Cynise [place] 350.1.13.10 [place] [id number] [facility] [address] 2021-12-06 2021-12-06 Emergency X KAREN, [facility] ERT [id number] Univers 15:32:00 17:11:00 CYNISE [facility] 2021-12-06 2021-12-06 Emergency X KAREN, [facility] ERT [id number] Univers 15:32:00 15:32:[facility] 2021-12-06 2021-12-06 Office Alejandro Benites [facility] 1.2.840.11 [id number] Univers 13:10:00 13:40:00 Visit Unknown, Attending PRIMARY 350.1.13.10 ity of [facility] 4.2.7.2.[place] [phone] [facility] [address] 2021-12-06 2021-12-06 Outpatient R UNKNOWN, [facility] [id number] Univers 13:10:00 13:10:00 ATTENDING [facility] 2021-12-06 2021-12-06 Outpatient R UNKNOWN, [facility] [id number] Univers 13:10:00 13:10:00 ATTENDING [facility] 2021-12-06 2021-12-06 Outpatient R BAL [facility] [id number] Univers 13:10:00 13:10:00 SON [facility] 2021-12-06 2021-12-06 Case Acosta [facility] 1.2.660.573 [id number] Univers 00:00:00 00:00:00 Management Montse Mccormack PRIMARY 350.1.13.10 ity of [place] [id number] [facility] [address] 2021-12-05 2021-12-05 Outpatient Leonid [facility] 104 130-202 [place] 04:22:00 04:22:00 [facility] 2021-12-05 2021-12-05 Case [facility] 1.2.840.114 [id number] Univers 00:00:00 00:00:00 Management Hardy HEALTH 350.1.13.10 ity of [facility] [place]2.[place] [id number] [facility] [address] OFFICE BUILDING 2021-12-05 2021-12-05 Telephone KEYUR Blanco 1.2.840.114 [id number] Univers 00:00:00 00:00:00 Jody BRANCH 350.1.13.10 it y of [facility] 4.2.7.2.686 [place] [id number] [facility] [address] 2021-11-29 2021-11-29 Outpatient Shari BEARDEN [facility] [id number] Univers 13:00:00 13:00:00 [facility] 2021-11-28 2021-11-28 Prep For KEYUR Blanco 1.2.899.469 [id number] Univers 00:00:00 00:00:00 Surgery Jody BRANCH 350.1.13.10 it y of [facility] 4.2.7.2.686 [place] [id number] [facility] [address] 2021-11-28 2021-11-28 Telephone UNA Bearden 1.2.840.114 [id number] Univers 00:00:00 00:00:00 [facility] 350.1.13.10 i ty of [facility] [place].2.[place] [id number] [facility] [address] 2021-11-22 2021-11-22 Outpatient Shari RIVERA [facility] PHYSICIST ASTROPHYSICS [id number] Univers 09:07:00 16:38:00 EMILY ity [facility] 2021-11-22 2021-11-22 Hospital MACIEL Rivera 1.2.840.114 [id number] Univers 09:07:00 16:38:00 Encounter Emily BRANCH 350.1.13.10 ity of [facility] 4.2.7.2.686 [place] [phone] [facility] [address] 2021-11-22 2021-11-22 Surgery MACIEL Rivera 1.2.840.114 [id number] Univers 11:05:00 13:43:00 Emily BRANCH 350.1.13.10 it y of [facility] 4.2.7.2.686 [place] [id number] [facility] [address] 2021-11-22 2021-11-22 Telephone Josiane [facility] 1.2.055.976 [id number] Univers 00:00:00 00:00:00 [facility] 350.1.13.10 it y of [facility] SPECIALTY 4.2.7.2.686 [facility] - [phone] [facility] [address] 2021-11-21 2021-11-21 Outpatient R MIGUEL [facility] [id number] Univers 13:15:00 13:18:56 EMILY [facility] 2021-11-21 2021-11-21 Laboratory Only, [facility] Test UNIVERSIT 1.2.84 0.114 [id number] Univers 13:15:00 13:18:56 Only MiguelEmily HEALTH 350.1.13.10 ity of [facility] 4.2.7.2.[place] [id number] [facility] [address] 2021-11-21 2021-11-21 Outpatient [facility] [id number] Univers 09:00:00 09:00:00 [facility] 2021-11-18 2021-11-18 Emergency X JULIA [facility] ERT [id number] Univers 11:41:00 17:07:00 SABINO ity [facility] 2021-11-18 2021-11-18 Emergency Behzadi, TRAUMA 1.2.840.114 [id number] Univers 11:41:00 17:07:00 Sabino A CENTER 350.1.13.10 i [place] [id number] [facility] [address] 2021-11-12 2021-11-12 Office Pgy3 UNIVERSIT 1.2.101.926 [id number] Univers 13:00:00 15:18:33 [facility] 350.1.13.10 [facility] [place] [id number] [address] 2021-11-12 2021-11-12 Outpatient R RYAN [facility] [id number] Univers 13:00:00 15:18:33 [facility] 2021-11-12 2021-11-12 Out[facility] [id number] Univers 13:00:00 13:00:00 [facility] 2021-11-12 2021-11-12 Outpatient R RYAN [facility] [id number] Univers 13:00:00 13:00:00 [facility] 2021-11-12 2021-11-12 Orders Doctor KEYUR 1.2.840.114 [id number] Univers 00:00:00 00:00:00 Only Unassigned, SARINA 350.1.13.10 ity of [place] [facility] 4.2.7.2.686 Kai as [id number] [facility] [address] 2021-10-29 2021-10-29 Telephone Ryan [facility] 1.2.840.114 [id number] Univers 00:00:00 00:00:00 [facility] 350.1.13.10 i ty [place] [id number] [facility] [address] 2021-10-24 2021-10-24 Outpatient Shari CASTILLO [facility] [id number] Univers 13:15:00 15:47:39 [facility] 2021-10-24 2021-10-24 Outpatient R TEENA [facility] [id number] Univers 13:15:00 15:47:39 [facility] 2021-10-24 2021-10-24 Out[facility] [id number] Univers 13:15:00 15:47:39 FRANKLYN childress [facility] 2021-10-24 2021-10-24 Office Pgy2 UNIVERSIT 1.2.153.180 [id number] Univers 13:15:00 15:47:39 Visit Felisa Davis Y HEALTH 350.1.13.10 ity of Franklyn Castillo [facility] 4.2.7.2.686 [place] [id number] [facility] [address] 2021-10-24 2021-10-24 Outpatient [facility] [id number] Univers 13:15:00 13:15:00 FRANKLYN childress [facility] 2021-10-24 2021-10-24 Telephone Jack Ott UNIVERSIT 1.2.840.11 [id number] Univers 00:00:00 00:00:00 Y HEALTH 350.1.13.10 i ty [place] [id number] [facility] [address] 2021-10-09 2021-10-10 Outpatient X [facility] PHYSICIST ASTROPHYSICS [id number] Univers 13:40:00 14:24:00 [facility] 2021-10-09 2021-10-10 Outpatient X [facility] PHYSICIST ASTROPHYSICS [id number] Univers 13:40:00 14:24:00 [facility] 2021-10-09 2021-10-10 Emergency YingerAlma Rosa nelson 1.2.840.114 [id number] Univers 13:40:00 14:24:00 Marino Wills 350.1.13.10 ity of [facility] 4.2.7.2.686 Kai as [phone] [facility] [address] 2021-10-10 2021-10-10 Telephone Catalina Cm UNIVERSIT 1.2.840.114 [id number] Univers 00:00:00 00:00:00 Y HEALTH 350.1.13.10 i ty [place] [id number] [address] 2021-10-10 2021-10-10 Telephone Auira MACIEL 1.2.840.114 [id number] Univers 00:00:00 00:00:00 , Alma Rosa BRANCH 350.1.13.10 it y of [facility] 4.2.7.2.686 [place] [id number] [facility] [address] 2021-07-15 2021-07-15 Orders Doctor KEYUR 1.2.840.114 [id number] Univers 00:00:00 00:00:00 Only Unassigned, SARINA 350.1.13.10 [facility] 4.2.7.2.686 [place] [phone] [facility] [address] 2021-07-02 2021-07-02 Telephone Pcp, [facility] 1.2.401.851 [id number] Univers 00:00:00 00:00:00 Patient NIR 350.1.13.10 i ty of [facility] 4.2.7.2.686 [place] A [id number] [facility] [address] 2020-02-22 2020-02-22 Emergency Curt Kemp [facility] 1.2.840.114 [id number] Univers 12:29:09 15:00:00 Willow Licona 350.1.13.10 i ty of [place] 4.2.7.2.686 [facility] [phone] [facility] [address] 2020-02-22 2020-02-22 Emergency Curt Kemp [facility] 1.2.840.114 [id number] 12:29:09 15:00:00 Willow [place] 350.1.13.10 [place] 4.2.7.2.686 [place] [id number] 2020-02-22 2020-02-22 Emergency X Curt KEMP [facility] ERT [id number] Univers 12:29:09 12:29:09 ity of [facility] 2020-01-30 2020-01-30 Outpatient Leonid [facility] 104 130-202 [place] 08:36:00 08:36:00 [id number] [facility] 2020-01-28 2020-01-28 Outpatient Leonid [facility] 104 130-202 [place] 01:01:00 01:01:00 [id number] [facility] 2019-12-02 2019-12-02 Outpatient Leonid [facility] 104 130-202 [place] 11:44:00 11:44:00 [id number] [facility] 2019-01-07 2019-01-07 Outpatient E JEFERSONI, [facility] [id number] [place] 10:23:00 12:27:00 [facility] 2018-12-04 2018-12-04 Outpatient E CINDI, [facility] [id number] [place] 10:20:00 15:57:00 [facility] 2018-11-11 2018-11-11 Outpatient E GILBERT, [facility] [id number] [place] 04:05:00 06:00:00 [facility] 2018-10-12 2018-10-12 Outpatient E PAULINE REDDY [facility] [id number] [place] 06:24:00 08:08:00 [facility] 2018-09-30 2018-09-30 Outpatient E MING, [facility] [id number] [place] 13:45:00 14:12:00 [facility] 2018-09-04 2018-09-04 Outpatient E MING, [facility] [id number] [place] 17:32:00 18:30:00 [facility] 2018-08-19 2018-08-19 Outpatient E HANY WILL [facility] [id number] [place] 08:43:00 10:15:00 Medica [facility] 2018-08-08 2018-08-08 Outpatient E CHAMBERS, [facility] [id number] [place] 13:34:00 16:43:00 [facility] Results Test Description Test Time Test Comments Results Result Comments Source BASIC METABOLIC PANEL (NA, K, CL, CO2, GLUCOSE, BUN, 2022-10 15:48:28 CREATININE, [place]) Test Item Value Reference Range Interpretation Comme nts NA (test code = 6330234289) 137 mmol/L 135-145 K (test code = 9068924808) 4.1 mmol/L 3.5-5.0 CL (test code = 5279508127) 106 mmol/L 98-108 CO2 TOTAL (test code = 0107485602) 23 mmol/L 23-31 AGAP (test code = 6549678183) 8 2-16 BUN (test code = 7576722947) 12 mg/dL 7-23 GLUCOSE (test code = 3935225065) 109 mg/dL 70-110 CREATININE (test code = 0.44 mg/dL 0.50-1.04 L 9513647279) CALCIUM (test code = 1001741266) 8.8 mg/dL 8.6-10.6 eGFR (test code = 6949279845) 156.8 mL/min/1.73m2 PARTH (test code = PARTH) Association of Glomerular Filtration Rate (GFR) and Staging of Kidney Disease* + +-------- + ------+| GFR (mL/min/1.73 m2) ?| With Kidney Damage ?| ?Without Kidney Damage+ +-- + +| ?>90 ?| ?Stage one ?| ? Normal ?+ +------- + -------+| ?60-89 ?| ?Stage two ?| ? Decreased GFR ? + +-------- + ------+| ?30-59 ?| ?Stage three ?| ? Stage three ? + +-------- + ------+| ?15-29 ?| ?Stage four ? | ? Stage four ?+ +------- + -------+| ?<15 (or dialysis) ? ?| ?Stage five ? | ? Stage five ?+ +------- + -------+ *Each stage assumes the associated GFR [...] or abnormalities in imaging tests). Lab Interpretation (test code = Abnormal 38221-6) [facility] WITH [id number] 15:38:28 Test Item Value Reference Range Interpretation Comments WBC (test code = 8.04 See_Comment [Automated message] 5690-2) The system [employer] generated this result transmitted ref erence range: 4.30 - 1 1.10 10*3/?L. The re ference range was not u sed to interpret this result as normal/abnor mal. RBC (test code = 4.38 See_Comment [Automated message] 399-8) The system [employer] generated this result transmitted ref erence range: 3.93 - 5 .25 10*6/?L. The re ference range was not u sed to interpret this result as normal/abnor mal. HGB (test code = 13.5 g/dL 11.6-15.0 718-7) HCT (test code = 39.6 % 35.7-45.2 4544-3) MCV (test code = 90.4 fL 80.6-95.5 787-2) MCH (test code = 30.8 pg 25.9-32.8 785-6) MCHC (test code = 34.1 g/dL 31.6-35.1 786-4) RDW-SD (test code 42.8 fL 39.0-49.9 = 00284-4) RDW-CV (test code 13.0 % 12.0-15.5 = 788-0) PLT (test code = 288 See_Comment [Automated message] 037-3) The system [employer] generated this result transmitted ref erence range: 166 - 35 8 10*3/?L. The re ference range was not u sed to interpret this result as normal/abnor mal. MPV (test code = 10.2 fL 9.5-12.9 56396-9) NRBC/100 WBC (test 0.0 See_Comment [Automat ed message] code = 5199685891) The [employer] which generated this result transmitted ref erence range: 0.0 - 10 .0 /100 WBCs. The refer ence range was not u sed to interpret this result as normal/abnor mal. NRBC x10^3 (test See_Comment [Automated message] code = 9019845531) The syste m which generated this result transmitted ref erence range: 10*3/?L. The reference range was not used to interpr et this result as normal/abnormal . GRAN MAT (NEUT) % 61.9 % (test code = 770-8) IMM GRAN % (test 0.20 % code = 1735139113) LYMPH % (test code 29.1 % = 736-9) MONO % (test code 7.1 % = 5905-5) EOS % (test code = 1.2 % 713-8) BASO % (test code 0.5 % = 706-2) GRAN MAT 4.97 10*3/uL 1.88-7.09 x10^3(ANC) (test code = 4930118934) IMM GRAN x10^3 0.00-0.06 (test code = 0136802075) LYMPH x10^3 (test 2.34 10*3/uL 1.32-3.29 code = 731-0) MONO x10^3 (test 0.57 10*3/uL 0.33-0.92 code = 742-7) EOS x10^3 (test 0.10 10*3/uL 0.03-0.39 code = 711-2) BASO x10^3 (test 0.04 10*3/uL 0.01-0.07 code = 704-7) [facility], THIRD [id number] 06:23:27 Test Item Value Reference Range Interpretation Comments TSH, THIRD GENERATION (test code 1.220 UIU/ML 0.400-4.100 = 2821) VITAMIN [id number] 06:23:27 Test Item Value Reference Range Interpretation Comments VITAMIN B-12 (test code = 2840) 312 PG/ML 200-950 VITAMIN D, 25 [id number] 04:36:56 Test Item Value Reference Range Interpretation Comments VITAMIN D, 25 OH 26 NG/ML SEE BELOW L NOTE: 25-H YDROXYVITAMIN D (test code = 4958) ASSAY INC LUDES 25-HYDROXYVITAM IN D2 AND D3. METHODOLOGY IS CHEMILUMINESCEN T IMMUNOASSAY. INTERPRETIVE RA NGES PEDIATRIC (<17 YEARS) . . . . . . . . . . . NG/ML 20-100ADULT: IN SUFFICIENT . . . . . . . . . . . . . . NG/ML <20 SUBOP TIMAL . . . . . . . . . . . . . . . NG/ML 20-29 OPT IMAL . . . . . . . . . . . . . . . . . NG/ML 30-100 HEMOGLOBIN [id number] 03:56:42 Test Item Value Reference Range Interpretation Comments HEMOGLOBIN A1c (test 5.8 % 4.2-5.6 H UNLESS OTHERWISE code = 23366) INDICATED, ALL TESTING PERFORMED [facility] [employer] [employer] [address], [place] [id number] [place] [address] DIRECTOR: NAILA OATES M.D. CLIA NUMBER [id number] CAP ACCREDITATION N O. [id number] COMPREHENSIVE METABOLIC [id number] 03:29:09 Test Item Value Reference Range Interpretation Comments GLUCOSE (test code = 86 MG/DL 70-99 2216) BUN (test code = 16 MG/DL 6-20 2207) CREATININE (test 0.61 MG/DL 0.60-1.30 code = 2214) eGFR (2020 CKD-EPI) 115 >60 (test code = 41035) ML/MIN/1.73 CALC BUN/CREAT (test 26 RATIO 6-28 code = 2235) SODIUM (test code = 138 MEQ/L 194-489 7059) POTASSIUM (test code 4.1 MEQ/L 3.5-5.4 = 2227) CHLORIDE (test code 99 MEQ/L 95-107 = 2214) CARBON DIOXIDE (test 23 MEQ/L 19-31 code = 2206) CALCIUM (test code = 9.6 MG/DL 8.5-10.5 2208) PROTEIN, TOTAL (test 8.0 G/DL 6.1-8.3 code = 2229) ALBUMIN (test code = 5.1 G/DL 3.5-5.2 2200) CALC GLOBULIN (test 2.9 G/DL 1.9-3.7 code = 2240) CALC A/G RATIO (test 1.8 RATIO 1.0-2.6 code = 2234) BILIRUBIN, TOTAL 1.2 MG/DL See_Comment [Automated message] (test code = 2207) The [employer] which generated this result transmit saw reference range : <=1.2. The refe rence range was not u sed to interpret th is result as normal/abnormal . ALKALINE PHOSPHATASE 67 U/L 40-113 (test code = 2204) AST (test code = 22 U/L 9-40 2217) ALT (test code = 30 U/L 5-40 2218) CBC W/AUTO DIFF WITH [id number] 02:24:23 Test Item Value Reference Range Interpretation Comments WBC (test code = 7.7 K/UL 3.5-11.0 1001) RBC (test code = 4.65 M/UL 3.80-5.40 1002) HEMOGLOBIN (test code 14.3 G/DL 11.5-15.5 = 1003) HEMATOCRIT (test code 42.6 % 34.0-45.0 = 1004) MCV (test code = 91.6 fL 80.0-99.0 1005) MCH (test code = 30.8 PG 25.0-33.0 1006) MCHC (test code = 33.6 G/DL 31.0-36.0 1007) RDW (test code = 13.1 % 11.5-15.0 1038) NEUTROPHILS (test 56.7 % code = 1008) LYMPHOCYTES (test 35.1 % code = 1010) MONOCYTES (test code 6.6 % = 1011) EOSINOPHILS (test 0.9 % code = 1012) BASOPHILS (test code 0.4 % = 1013) IMMATURE GRANULOCYTES 0.3 % (test code = 1036) NUCLEATED RBCS (test 0.0 /100 WBC'S See_Comment [Aut omated code = 1065) message] The sy stem which generated this result transmitted reference range : 0.0. The refere nce range was not u sed to interpret th is result as normal/abnormal . PLATELET COUNT (test 339 K/UL 130-400 code = 1015) ABSOLUTE NEUTROPHILS 4.39 K/UL 1.50-7.50 (test code = 1066) ABSOLUTE LYMPHOCYTES 2.72 K/UL 1.00-4.00 (test code = 1067) ABSOLUTE MONOCYTES 0.51 K/UL 0.20-1.00 (test code = 1068) ABSOLUTE EOSINOPHILS 0.07 K/UL 0.00-0.50 (test code = 1040) ABSOLUTE BASOPHILS 0.03 K/UL 0.00-0.20 (test code = 1069) ABS IMMATURE 0.02 K/UL 0.00-0.10 GRANULOCYTES (test code = 1020) ABS NUCLEATED RBCS 0.00 K/UL 0.00-0.11 (test code = 05429) CBC WITH [id number] 10:42:11 Test Item Value Reference Range Interpretation Comments WBC (test code = See_Comment [Automated 6690-2) message] The sy stem which [...] as normal/abnormal . HGB (test code = 11.4 g/dL 11.6-15 L 718-7) HCT (test code = 34.2 % 35.7-45.2 L 4544-3) MCV (test code = 92.7 fL 80.6-95.5 787-2) MCH (test code = 30.9 pg 25.9-32.8 785-6) MCHC (test code = 33.3 g/dL 31.6-35.1 786-4) RDW-SD (test code = 45.3 fL 39-49.9 82289-7) RDW-CV (test code = 13.3 % 12-15.5 788-0) PLT (test code = See_Comment [Automated 777-3) message] The sy stem which generated this result transmitted reference range : 166 - 358 10*3/ ?L. The reference r jess was not used to interpret this result as normal/abnormal . MPV (test code = 10.5 fL 9.5-12.9 01080-4) NRBC/100 WBC (test See_Comment [Automat ed code = 4288408579) message] The system which generated this result transmitted reference range : 0.0 - 10.0 /100 WBCs. The refer ence range was not u sed to interpret th is result as normal/abnormal . NRBC x10^3 (test code See_Comment [Auto mated = 9401638149) message] The s ystem which generated this result transmitted reference range : 10*3/?L. The reference range was not used to interpret this result as normal/abnormal . GRAN MAT (NEUT) % 37.8 % (test code = 770-8) IMM GRAN % (test code 0.50 % = 8109902216) LYMPH % (test code = 51.2 % 736-9) MONO % (test code = 8.1 % 5905-5) EOS % (test code = 1.9 % 713-8) BASO % (test code = 0.5 % 706-2) GRAN MAT x10^3(ANC) 2.43 10*3/uL 1.88-7.09 (test code = 3786527944) IMM GRAN x10^3 (test 0.03 10*3/uL 0-0.06 code = 3196966828) LYMPH x10^3 (test code 3.29 10*3/uL 1.32-3.29 = 731-0) MONO x10^3 (test code 0.52 10*3/uL 0.33-0.92 = 742-7) EOS x10^3 (test code = 0.12 10*3/uL 0.03-0.39 711-2) BASO x10^3 (test code 0.03 10*3/uL 0.01-0.07 = 704-7) Lab Interpretation Abnormal (test code = 91710-5) [facility] WITH [id number] 10:58:56 Test Item Value Reference Range Interpretation Comments WBC (test code = See_Comment H [Automated 2790-2) message] The sy stem which generated this result transmitted reference range : 4.30 - 11.10 10*3/?L. The reference range was not used to interpret this result as normal/abnormal . RBC (test code = See_Comment L [Automated 299-8) message] The sy stem which generated this [...] RDW-SD (test code = 46.4 fL 39-49.9 59829-9) RDW-CV (test code = 13.7 % 12-15.5 788-0) PLT (test code = See_Comment [Automated 777-3) message] The sy stem which generated this result transmitted reference range : 166 - 358 10*3/ ?L. The reference r jess was not used to interpret this result as normal/abnormal . MPV (test code = 11.5 fL 9.5-12.9 95346-3) NRBC/100 WBC (test See_Comment [Automat ed code = 7867645172) message] The system which generated this result transmitted reference range : 0.0 - 10.0 /100 WBCs. The refer ence range was not u sed to interpret th is result as normal/abnormal . NRBC x10^3 (test code See_Comment [Auto mated = 7587226258) message] The s ystem which generated this result transmitted reference range : 10*3/?L. The reference range was not used to interpret this result as normal/abnormal . GRAN MAT (NEUT) % 69.6 % (test code = 770-8) IMM GRAN % (test code 0.20 % = 6459624749) LYMPH % (test code = 22.6 % 736-9) MONO % (test code = 7.3 % 5905-5) EOS % (test code = 0.1 % 713-8) BASO % (test code = 0.2 % 706-2) GRAN MAT x10^3(ANC) 8.81 10*3/uL 1.88-7.09 H (test code = 5260792238) IMM GRAN x10^3 (test 0.03 10*3/uL 0-0.06 code = 6596863692) LYMPH x10^3 (test code 2.86 10*3/uL 1.32-3.29 = 731-0) MONO x10^3 (test code 0.93 10*3/uL 0.33-0.92 H = 742-7) EOS x10^3 (test code = 0.03-0.39 L 711-2) BASO x10^3 (test code 0.01-0.07 = 704-7) Lab Interpretation Abnormal (test code = 35590-6) [facility]. METABOLIC PANEL (19080)2022-05-21 01:01:28 Test Item Value Reference Range Interpretation Comments NA (test code = 139 mmol/L 135-145 3700530281) K (test code = 3.6 mmol/L 3.5-5 0413555919) CL (test code = 106 mmol/L 98-108 0556885007) CO2 TOTAL (test code = 24 mmol/L 23-31 5768194280) AGAP (test code = 2-16 3195216279) BUN (test code = 10 mg/dL 7-23 5880253516) GLUCOSE (test code = 96 mg/dL 70-110 7120869407) CREATININE (test code = 0.44 mg/dL 0.5-1.04 L 0261782762) TOTAL BILI (test code = 1.0 mg/dL 0.1-1.4 5819317299) CALCIUM (test code = 9.0 mg/dL 8.6-10.6 3492417991) T PROTEIN (test code = 7.8 g/dL 6.3-8.2 1447632169) ALBUMIN (test code = 4.6 g/dL 3.5-5 7937617609) ALK PHOS (test code = 81 U/L 34-122 8209025239) ALTv (test code = 11 U/L 5-35 1742-6) AST(SGOT) (test code = 17 U/L 13-40 3751950047) eGFR (test code = mL/min/1.73m2 1280195686) PARTH (test code = PARTH) Association of [...] tests). Lab Interpretation Abnormal (test code = 96526-0) [facility]. METABOLIC PANEL (74833)2022-05-21 01:01:28 Test Item Value Reference Range Interpretation Comments NA (test code = 139 mmol/L 135-145 5107475740) K (test code = 3.6 mmol/L 3.5-5 8057881124) CL (test code = 106 mmol/L 98-108 2891666348) CO2 TOTAL (test code = 24 mmol/L 23-31 6841766486) AGAP (test code = 2-16 4762247170) BUN (test code = 10 mg/dL 7-23 8725878435) GLUCOSE (test code = 96 mg/dL 70-110 8000875172) CREATININE (test code = 0.44 mg/dL 0.5-1.04 L 1940710174) TOTAL BILI (test code = 1.0 mg/dL 0.1-1.7 7104075823) CALCIUM (test code = 9.0 mg/dL 8.6-10.6 9523116117) T PROTEIN (test code = 7.8 g/dL 6.3-8.2 7178853428) ALBUMIN (test code = 4.6 g/dL 3.5-5 1398260176) ALK PHOS (test code = 81 U/L 34-122 6425880411) ALTv (test code = 11 U/L 5-35 1742-6) AST(SGOT) (test code = 17 U/L 13-40 4192300201) eGFR (test code = mL/min/1.73m2 4907400221) PARTH (test code = PARTH) Association of [...] tests). Lab Interpretation Abnormal (test code = 26542-4) [facility] WITH [id number] 00:51:27 Test Item Value Reference Range Interpretation [...] RDW-SD (test code = 45.4 fL 39-49.9 07693-1) RDW-CV (test code = 13.3 % 12-15.5 788-0) PLT (test code = See_Comment [Automated 777-3) message] The sy stem which generated this result transmitted reference range : 166 - 358 10*3/ ?L. The reference r jess was not used to interpret this result as normal/abnormal . MPV (test code = 10.5 fL 9.5-12.9 18404-9) NRBC/100 WBC (test See_Comment [Automat ed code = 1418354391) message] The system which generated this result transmitted reference range : 0.0 - 10.0 /100 WBCs. The refer ence range was not u sed to interpret th is result as normal/abnormal . NRBC x10^3 (test code See_Comment [Auto mated = 4068539391) message] The s ystem which generated this result transmitted reference range : 10*3/?L. The reference range was not used to interpret this result as normal/abnormal . GRAN MAT (NEUT) % 67.4 % (test code = 770-8) IMM GRAN % (test code 0.30 % = 1573606392) LYMPH % (test code = 24.5 % 736-9) MONO % (test code = 7.2 % 5905-5) EOS % (test code = 0.3 % 713-8) BASO % (test code = 0.3 % 706-2) GRAN MAT x10^3(ANC) 8.19 10*3/uL 1.88-7.09 H (test code = 4373806187) IMM GRAN x10^3 (test 0.04 10*3/uL 0-0.06 code = 1514398470) LYMPH x10^3 (test code 2.98 10*3/uL 1.32-3.29 = 731-0) MONO x10^3 (test code 0.88 10*3/uL 0.33-0.92 = 742-7) EOS x10^3 (test code = 0.04 10*3/uL 0.03-0.39 711-2) BASO x10^3 (test code 0.04 10*3/uL 0.01-0.07 = 704-7) Lab Interpretation Abnormal (test code = 96471-2) [facility] WITH [id number] 00:51:27 Test Item Value Reference Range Interpretation Comments WBC (test code = See_Comment H [Automated 2190-2) message] The sy stem which generated this result transmitted reference range : 4.30 - 11.10 10*3/?L. The reference range was not used to interpret this result as normal/abnormal . RBC (test code = See_Comment [Automated 899-8) message] The sy stem which generated this [...] RDW-SD (test code = 45.4 fL 39-49.9 64509-1) RDW-CV (test code = 13.3 % 12-15.5 788-0) PLT (test code = See_Comment [Automated 777-3) message] The sy stem which generated this result transmitted reference range : 166 - 358 10*3/ ?L. The reference r jess was not used to interpret this result as normal/abnormal . MPV (test code = 10.5 fL 9.5-12.9 71434-8) NRBC/100 WBC (test See_Comment [Automat ed code = 6244143711) message] The system which generated this result transmitted reference range : 0.0 - 10.0 /100 WBCs. The refer ence range was not u sed to interpret th is result as normal/abnormal . NRBC x10^3 (test code See_Comment [Auto mated = 0232083747) message] The s ystem which generated this result transmitted reference range : 10*3/?L. The reference range was not used to interpret this result as normal/abnormal . GRAN MAT (NEUT) % 67.4 % (test code = 770-8) IMM GRAN % (test code 0.30 % = 8878452877) LYMPH % (test code = 24.5 % 736-9) MONO % (test code = 7.2 % 5905-5) EOS % (test code = 0.3 % 713-8) BASO % (test code = 0.3 % 706-2) GRAN MAT x10^3(ANC) 8.19 10*3/uL 1.88-7.09 H (test code = 9850547799) IMM GRAN x10^3 (test 0.04 10*3/uL 0-0.06 code = 5892268164) LYMPH x10^3 (test code 2.98 10*3/uL 1.32-3.29 = 731-0) MONO x10^3 (test code 0.88 10*3/uL 0.33-0.92 = 742-7) EOS x10^3 (test code = 0.04 10*3/uL 0.03-0.39 711-2) BASO x10^3 (test code 0.04 10*3/uL 0.01-0.07 = 704-7) Lab Interpretation Abnormal (test code = 84203-0) [facility] [id number] 00:00:00 Test Item Value Reference Range Interpretation Comments SOURCE: (test code = Cervical/Endocervical 8001) SLIDES: (test code = 1 8011) LMP: (test code = 8021) 03/26/2019 SPECIMEN ADEQUACY: (test (NOTE) code = 54373) INTERPRETATION: (test NILM/NO EPITH. code = 36447) ABNORMALITY;SEE BELOW OTHER COMMENTS: (test (NOTE) code = 8081) WINDOW GLAZIER HELPER: (test Janet code = 8101) MARI Grajeda(ASCP) QC TECHNOLOGIST: (test Gabrielle code = 8111) MARGARITA Yun(ASCP)CT(IA C) LOCATION: (test code = (NOTE) 66057) CPT: (test code = 8140) (NOTE) PAP TEST, THINPREP, [id number] 00:00:00 Test Item Value Reference Range Interpretation Comments SOURCE: (test code = Cervical/Endocervical 8001) SLIDES: (test code = 1 8011) LMP: (test code = 8021) 03/26/2019 SPECIMEN ADEQUACY: (test (NOTE) code = 17521) INTERPRETATION: (test NILM/NO EPITH. code = 99138) ABNORMALITY;SEE BELOW OTHER COMMENTS: (test (NOTE) code = 8081) WINDOW GLAZIER HELPER: (test Janet code = 8101) MARI Grajeda(ASCP) QC TECHNOLOGIST: (test Gabrielle code = 8111) MARGARITA Yun(ASCP)CT(IA C) LOCATION: (test code = (NOTE) 01312) CPT: (test code = 8140) (NOTE) CT/NG, TMA, THINPREP [ADDED]2019-05-04 00:00:00 Test Item Value Reference Range Interpretation Comments GONORRHEA, TMA (test code = 67941) NEGATIVE CHLAMYDIA, TMA (test code = 00153) NEGATIVE CT/NG, TMA, THINPREP [ADDED]2019-05-04 00:00:00 Test Item Value Reference Range Interpretation Comments GONORRHEA, TMA (test code = 87830) NEGATIVE CHLAMYDIA, TMA (test code = 45693) NEGATIVE VAGINAL PATHOGENS DNA [id number] 00:00:00 Test Item Value Reference Range Interpretation Comments PRASANNA SPECIES (test code = ) NEGATIVE G. VAGINALIS (test code = ) NEGATIVE T. VAGINALIS (test code = ) POSITIVE CBC W/AUTO [id number] 00:00:00 Test Item Value Reference Range Interpretation [...] code = 1015) 362 K/UL CBC W/AUTO [id number] 00:00:00 Test Item Value Reference Range Interpretation [...] code = 1015) 362 K/UL CBC W/AUTO [id number] 00:00:00 Test Item Value Reference Range Interpretation [...] = 1015) 362 K/UL VAGINAL PATHOGENS DNA [id number] 00:00:00 Test Item Value Reference Range Interpretation Comments PRASANNA SPECIES (test code = ) NEGATIVE G. VAGINALIS (test code = ) NEGATIVE T. VAGINALIS (test code = ) POSITIVE HPV HIGH RISK WITH GENOTYPE, [id number] 00:00:00 Test Item Value Reference Range Interpretation Comments HPV HIGH RISK INTERP (test code = NEGATIVE 32103) HPV 16 (test code = 18994) NEGATIVE HPV 18 (test code = 79951) NEGATIVE HPV, HR, OTHER GENOTYPES (test code NEGATIVE = 42639) LIPID [id number] 00:00:00 Test Item Value Reference Range Interpretation Comments CHOLESTEROL (test code = 2210) 221 MG/DL TRIGLYCERIDES (test code = 2232) 106 MG/DL HDL CHOLESTEROL (test code = 2220) 40 MG/DL CALC LDL CHOL (test code = 2237) 160 MG/DL RISK RATIO LDL/HDL (test code = 4.00 RATIO 2238) HPV HIGH RISK WITH GENOTYPE, [id number] 00:00:00 Test Item Value Reference Range Interpretation Comments HPV HIGH RISK INTERP (test code = NEGATIVE 69999) HPV 16 (test code = 57905) NEGATIVE HPV 18 (test code = 51992) NEGATIVE HPV, HR, OTHER GENOTYPES (test code NEGATIVE = 25045) LIPID [id number] 00:00:00 Test Item Value Reference Range Interpretation Comments CHOLESTEROL (test code = 2210) 221 MG/DL TRIGLYCERIDES (test code = 2232) 106 MG/DL HDL CHOLESTEROL (test code = 2220) 40 MG/DL CALC LDL CHOL (test code = 2237) 160 MG/DL RISK RATIO LDL/HDL (test code = 4.00 RATIO 2238) HEMOGLOBIN [id number] 00:00:00 Test Item Value Reference Range Interpretation Comments HEMOGLOBIN A1c (test code = 69298) 5.9 % HEMOGLOBIN [id number] 00:00:00 Test Item Value Reference Range Interpretation Comments HEMOGLOBIN A1c (test code = 20125) 5.9 % HEMOGLOBIN [id number] 00:00:00 Test Item Value Reference Range Interpretation Comments HEMOGLOBIN A1c (test code = 09202) 5.9 % COMPREHENSIVE METABOLIC [id number] 00:00:00 Test Item Value Reference Range Interpretation Comments GLUCOSE (test code = 2217) 100 MG/DL BUN (test code = 2208) 10 MG/DL CREATININE (test code = 2214) 0.56 MG/DL eGFR AMER. (test code 137 ML/MIN/1.73 = 91286) eGFR NON- AMER. (test 118 ML/MIN/1.73 code = 79575) CALC BUN/CREAT (test code = 18 RATIO 2235) SODIUM (test code = 2231) 140 MEQ/L POTASSIUM (test code = 2228) 3.7 MEQ/L CHLORIDE (test code = 2215) 103 MEQ/L CARBON DIOXIDE (test code = 22 MEQ/L 2206) CALCIUM (test code = 2209) 9.1 MG/DL [...] code = 2219) 26 U/L COMPREHENSIVE METABOLIC [id number] 00:00:00 Test Item Value Reference Range Interpretation Comments GLUCOSE (test code = 2217) 100 MG/DL BUN (test code = 2208) 10 MG/DL CREATININE (test code = 2214) 0.56 MG/DL eGFR AMER. (test code 137 ML/MIN/1.73 = 40255) eGFR NON- AMER. (test 118 ML/MIN/1.73 code = 24002) CALC BUN/CREAT (test code = 18 RATIO [...] A/G RATIO (test code = 1.4 RATIO 2233) BILIRUBIN, TOTAL (test code = 0.5 MG/DL 2206) ALKALINE PHOSPHATASE (test 79 U/L code = 2204) AST (test code = 2218) 18 U/L ALT (test code = 2219) 26 U/L [id number] 00:00:00 Test Item Value Reference Range Interpretation Comments TSH, THIRD GENERATION (test code 1.260 UIU/ML = 2821) [id number] 00:00:00 Test Item Value Reference Range Interpretation Comments TSH, THIRD GENERATION (test code 1.260 UIU/ML = 2821) [id number] 00:00:00 Test Item Value Reference Range Interpretation [...] 05:31:13CT abdomen and pelvis with contrastLocation Code: [id number] HISTORY: [id number]: Lower abdominal pain COMPARISON: NoneTechnique: Helical CT [...] % 0.0-10.0 XR CHEST 2 VIEW *OW*2018-10-12 07:25:86A36QZSD: XR CHEST 2 VIEW *OW*HISTORY: [id number]: CoughCOMPARISON: 08/08/18INDINGS: The lungs are clear. No [...] = GMID%) 10.3 % 0.0-10.0 H THROAT [id number] 07:45:00 Test Item Value Reference Range Interpretation [...] 14:39:21PA and lateral chest, 2 viewsLocation code: [id number] HISTORY: Chest painCOMPARISON: NoneCOMMENTS: The lungs are clear and well inflated. The costophrenic angles aresharp. The cardiomediastinal silhouette is unremarkable. The bones are intact.IMPRESSION: No acute abnormality"
[2023-06-07] MEDS ORDERED: METOCLOPRAMIDE 10 MG/2mL INJ ONE (08:20)
[2023-06-07] MEDS ORDERED: dexAMETHasone 10 MG/ML VIAL ONE (08:20)
[2023-06-07] MEDS ORDERED: NA CHLORIDE 0.9% 1,000 ML ONE (08:21)
[2023-06-07] MEDS ORDERED: KETOROLAC 30 MG/ML INJ ONE (08:21)
--- NOTE | 2023-06-07 09:05 | ER ---
Nurse's Notes [facility] Name: Serenity Collins Age: 42 yrs Sex: Female : 1980 Arrival Date: 06/07/2023 Time: 07:33 Bed 5 Private MD: Diagnosis: Headache Presentation: 06/07 07:42 Chief complaint: Neck pain, dizziness, headache, nausea, and blurred vision upon waking hb today. Coronavirus screen: At this time, the client does not indicate any symptoms associated with coronavirus-19. Ebola Screen: No symptoms or risks identified at this time. Initial Sepsis Screen: Does the patient meet any 2 criteria? No. Patient's initial sepsis screen is negative. Does the patient have a suspected source of infection? No. Patient's initial sepsis screen is negative. Risk Assessment: Do you want to hurt yourself or someone else? Patient reports no desire to harm self or others. Onset of symptoms was June 07, 2023. 07:42 Method Of Arrival: Ambulatory hb 07:42 Acuity: MARY 3 hb Historical: - Allergies: 07:43 JOE; hb 07:43 Seroquel; hb 07:43 SHELLFISH; hb 07:43 Tylenol-Codeine #3; hb - PMHx: 07:43 Anxiety; Bipolar disorder; depressive disorder; ocd; PTSD; Rheumatoid Arthritis; hb - PSHx: 07:43 Total abdominal hysterectomy; hb - Immunization history:: Adult Immunizations up to date. - Social history:: Smoking status: . - Family history:: not pertinent. - Hospitalizations: : No recent hospitalization is reported. Screenin:47 [facility] ED Fall Risk Assessment (Adult) History of falling in the last 3 months, tm6 including since admission No falls in past 3 months (0 pts). Abuse screen: Denies threats or abuse. Denies injuries from another. Nutritional screening: No deficits noted. Tuberculosis screening: No symptoms or risk factors identified. 07:47 VAN Screening: Arm Drift: Patient shows no arm weakness. Patient is VAN negative. tm6 Assessment: 07:47 General: Appears uncomfortable, Behavior is calm, cooperative, appropriate for age, tm6 anxious. Pain: Complains of pain in face and scalp Pain does not radiate. Pain currently is 10 out of 10 on a pain scale. Quality of pain is described as aching, Pain began 1 hour ago. Is continuous. Neuro: Level of Consciousness is awake, alert, obeys commands, Oriented to person, place, time, situation, Appropriate for age Reports blurred vision since once this morning upon waking dizziness, since this morning upon waking headache. Cardiovascular: Capillary refill < 3 seconds Patient's skin is warm and dry. Respiratory: Airway is patent Trachea midline Respiratory effort is even, unlabored, Respiratory pattern is regular, symmetrical. GI: No signs and/or symptoms were reported involving the gastrointestinal system. Abdomen is flat, non-distended. : No signs and/or symptoms were reported regarding the genitourinary system. EENT: No signs and/or symptoms were reported regarding the EENT system. Derm: No signs and/or symptoms reported regarding the dermatologic system. Musculoskeletal: No signs and/or symptoms reported regarding the musculoskeletal system. Vital Signs: 07:42 BP 125 / 67; Pulse 90; Resp 16; Temp 98.1(O); Pulse Ox 99% on R/A; Weight 64 kg; Height hb 5 ft. 3 in. ; Pain 10/10; 07:47 BP 117 / 79; Pulse 67; Resp 19; Pulse Ox 98% on R/A; Pain 10/10; tm6 08:23 BP 116 / 80; Pulse 60; Resp 17; Pulse Ox 99% on R/A; tm6 08:29 Pain 10/10; tm6 08:59 BP 108 / 72; Pulse 67; Resp 17; Pulse Ox 100% ; Pain 8/10; tm6 07:42 Body Mass Index 24.99 (64.00 kg, 160.02 cm) hb 07:42 Pain Scale: Adult hb 07:47 Pain Scale: Adult tm6 08:29 Pain Scale: Adult tm6 08:59 Pain Scale: Adult tm6 [place] Coma Score: 09:01 Eye Response: spontaneous(4). Motor Response: obeys commands(6). Verbal Response: rn oriented(5). Total: 15. NIH Stroke Scale Scores: 07:47 NIHSS Score: 0 tm6 ED Course: 07:37 Patient arrived in ED. ts1 07:37 Ramu Choi MD is Attending Physician. rn 07:43 Triage completed. hb 07:44 Arm band placed on. hb 07:47 Josette Ly RN is Primary Nurse. tm6 07:47 Patient has correct armband on for positive identification. Bed in low position. Call tm6 light in reach. Side rails up X2. Client placed on continuous cardiac and pulse oximetry monitoring. NIBP monitoring applied. Noise minimized. Warm blanket given. 07:47 No provider procedures requiring assistance completed. tm6 08:23 Inserted saline lock: 20 gauge in right antecubital area, using aseptic technique. tm6 09:04 Brad Soto MD is Referral Physician. rn 09:16 IV discontinued, intact, bleeding controlled. tm6 Administered Medications: 08:19 Drug: Ketorolac IVP 15 mg IVP once Route: IVP; Site: right antecubital; tm6 08:19 Drug: NS 0.9% IV 1000 ml IV at 1000 ml once Route: IV; Rate: 1000 ml; Site: right tm6 antecubital; 08:19 Drug: Decadron - Dexamethasone IVP 10 mg IVP once Route: IVP; Site: right antecubital; tm6 08:19 Drug: metoCLOPramide IVP 10 mg IVP once; over 1 to 2 minutes Route: IVP; Site: right tm6 antecubital; Medication: 07:47 VIS not applicable for this client. tm6 Outcome: 09:05 Discharge ordered by . rn 09:21 Discharged to home ambulatory, tm6 09:21 Condition: stable 09:21 Discharge instructions given to patient, Instructed on discharge instructions, follow up and referral plans. Demonstrated understanding of instructions, follow-up care, 09:22 Patient left the ED. tm6 NIH Stroke Scale - NIH Stroke Score Date: 06/07/2023 Time: 07:47 Total Score = 0 10. Dysarthria (speech clarity - read or repeat words) - 0(Normal) 11. Extinction and Inattention (visual/tactile/auditory/spatial/personal) - 0(No abnormality) 1a. Level of Consciousness (LOC) - 0(Alert) 1b. Level of Consciousness (LOC) (Month \T\ Age) - 0(Both) 1c. LOC Commands (Open \T\ Closes Eyes/Records Management Assistant) - 0(Both) 2. Best Gaze (Lateral Gaze Paresis) - 0(Normal) 3. Visual Field Loss - 0(No visual loss) 4. Facial Palsy - 0(Normal) 5a. Left Arm: Motor (10-second hold) - 0(No drift) 5b. Right Arm: Motor (10-second hold) - 0(No drift) 6a. Left Leg: Motor (5-second hold - always test supine) - 0(No drift) 6b. Right Leg: Motor (5-second hold - always test supine) - 0(No drift) 7. Limb Ataxia (finger/nose \T\ heel/ferrera - test with eyes open) - 0(Absent) 8. Sensory Loss (pinprick arms/legs/face) - 0(Normal) 9. Best Language: Aphasia (description/naming/reading) - 0(No aphasia) Initials: tm6 Signatures: Ramu Choi MD MD rn Baxter, Heather, RN RN hb Simpson, Tanya, BERE PAS ts1 Josette Ly RN RN tm6
--- NOTE | 2023-06-07 09:05 | EDPHYS ---
Physician Documentation [facility] Name: Serenity Collins Age: 42 yrs Sex: Female : 1980 Arrival Date: 06/07/2023 Time: 07:33 Bed 5 Private MD: ED Physician Ramu Choi HPI: 06/07 08:59 This 42 yrs old Female presents to ER via Ambulatory with complaints of Headache, Neck rn Pain, <24hrs Old, Nausea, . 08:59 The patient complains of pain to the forehead. The patient describes the headache as rn aching. 09:01 Onset: The symptoms/episode began/occurred at an unknown time. Severity of symptoms: At rn its worst the pain was moderate, "similar to past headaches", in the emergency department the pain is unchanged. The symptoms are alleviated by nothing. the symptoms are aggravated by lights, noise, stress. The patient has experienced similar episodes in the past. Patient reports has headache and migraine problem for the last 2 years, getting worse, woke up again this morning with another headache that is identical to previous headaches. Reports blurry wavy vision but denies loss of vision. Also reports sensitivity to light and sound and stress. Has not seen neurology or rheumatology. Seen 3 weeks ago and had negative CTA head and neck angios. Negative for fever or trauma. Negative for focal neurological problem.. Historical: - Allergies: 07:43 JOE; hb 07:43 Seroquel; hb 07:43 SHELLFISH; hb 07:43 Tylenol-Codeine #3; hb - PMHx: 07:43 Anxiety; Bipolar disorder; depressive disorder; ocd; PTSD; Rheumatoid Arthritis; hb - PSHx: 07:43 Total abdominal hysterectomy; hb - Immunization history:: Adult Immunizations up to date. - Social history:: Smoking status: . - Family history:: not pertinent. - Hospitalizations: : No recent hospitalization is reported. ROS: 09:01 Constitutional: Negative for fever, chills, and weight loss, Eyes: Negative for injury, rn pain, redness, and discharge, Neck: Negative for injury, and swelling, Cardiovascular: Negative for chest pain, palpitations, and edema, Respiratory: Negative for shortness of breath, cough, wheezing, and pleuritic chest pain, Abdomen/GI: Negative for abdominal pain, nausea, vomiting, diarrhea, and constipation, Back: Negative for injury and pain, MS/Extremity: Negative for injury and deformity, Skin: Negative for injury, rash, and discoloration, Neuro: Positive for headache Exam: 09:01 Constitutional: This is a well developed, well nourished patient who is awake, alert, rn and in no acute distress. Head/Face: Normocephalic, atraumatic. Eyes: Pupils equal round and reactive to light, extra-ocular motions intact. Neck: Trachea midline, no masses palpated, and no cervical lymphadenopathy. Supple, full range of motion without nuchal rigidity, or vertebral point tenderness. No Meningismus. Cardiovascular: Regular rate and rhythm. No pulse deficits. MS/ Extremity: Pulses equal, no cyanosis. Neurovascular intact. Full, normal range of motion. Equal circumference. Neuro: Awake and alert, GCS 15, oriented to person, place, time, and situation. Cranial nerves II-XII grossly intact. Motor strength 5/5 in all extremities. Sensory grossly intact. Cerebellar exam normal. Normal gait. Ambulatory to room without difficulty or assistance Vital Signs: 07:42 BP 125 / 67; Pulse 90; Resp 16; Temp 98.1(O); Pulse Ox 99% on R/A; Weight 64 kg; Height hb 5 ft. 3 in. ; Pain 10/10; 07:47 BP 117 / 79; Pulse 67; Resp 19; Pulse Ox 98% on R/A; Pain 10/10; tm6 08:23 BP 116 / 80; Pulse 60; Resp 17; Pulse Ox 99% on R/A; tm6 08:29 Pain 10/10; tm6 08:59 BP 108 / 72; Pulse 67; Resp 17; Pulse Ox 100% ; Pain 8/10; tm6 07:42 Body Mass Index 24.99 (64.00 kg, 160.02 cm) hb 07:42 Pain Scale: Adult hb 07:47 Pain Scale: Adult tm6 08:29 Pain Scale: Adult tm6 08:59 Pain Scale: Adult tm6 NIH Stroke Scale Scores: 07:47 NIHSS Score: 0 tm6 [place] Coma Score: 09:01 Eye Response: spontaneous(4). Motor Response: obeys commands(6). Verbal Response: rn oriented(5). Total: 15. MDM: 07:37 Patient medically screened. rn 09:01 Differential diagnosis: cluster headache, migraine, tension headache, vasomotor rn headache. Data reviewed: vital signs, nurses notes, old medical records, Previous visit approximately 3 and half weeks ago show negative CT head and angio. Identical presentation. Counseling: I had a detailed discussion with the patient and/or guardian regarding the historical points, exam findings, and any diagnostic results supporting the discharge/admit diagnosis, the need for outpatient follow up, to return to the emergency department if symptoms worsen or persist or if there are any questions or concerns that arise at home. Response to treatment: the patient's symptoms have mildly improved after treatment, and as a result, I will discharge patient. Special discussion: I discussed with the patient/guardian in detail that at this point there is no indication for admission to the hospital. It is understood, however, that if the symptoms persist or worsen the patient needs to return immediately for re-evaluation. Based on the history and exam findings, there is no indication for further emergent testing or inpatient evaluation. I discussed with the patient/guardian the need to see the neurologist for further evaluation of the symptoms. I discussed with the patient/guardian the need to see the ase master mechanic for further evaluation of the symptoms. ED course: Patient reports pain has improved, is now down to her baseline daily pain that she attributes to rheumatoid arthritis or rheumatologic disease. Normal neurological exam and no indication for repeat emergent neurological imaging at this time. Told patient to follow-up with rheumatology and neurology and to stop by medical records for all her previous studies. Patient will follow-up with PCP and or specialist as discussed. Return precautions given and understood.. 06/07 07:55 Order name: IV Start; Complete Time: 08:19 rn Administered Medications: 08:19 Drug: Ketorolac IVP 15 mg IVP once Route: IVP; Site: right antecubital; tm6 08:19 Drug: NS 0.9% IV 1000 ml IV at 1000 ml once Route: IV; Rate: 1000 ml; Site: right tm6 antecubital; 08:19 Drug: Decadron - Dexamethasone IVP 10 mg IVP once Route: IVP; Site: right antecubital; tm6 08:19 Drug: metoCLOPramide IVP 10 mg IVP once; over 1 to 2 minutes Route: IVP; Site: right tm6 antecubital; Disposition Summary: 06/07/23 09:05 Discharge Ordered Notes: Location: Home rn Problem: an ongoing problem rn Symptoms: have improved rn Condition: Stable rn Diagnosis - Headache rn Followup: rn - With: Brad Soto MD - When: As needed - Reason: Recheck today's complaints, Re-evaluation by your physician Discharge Instructions: - Discharge Summary Sheet rn - General Headache Without Cause rn - Migraine Headache rn Forms: - Medication Reconciliation Form rn - Thank You Letter rn - Antibiotic compensation intern - Prescription Opioid Use rn - Patient Portal Instructions rn - Leadership Thank You Letter rn - Work release form ld1 NIH Stroke Scale - NIH Stroke Score Date: 06/07/2023 Time: 07:47 Total Score = 0 10. Dysarthria (speech clarity - read or repeat words) - 0(Normal) 11. Extinction and Inattention (visual/tactile/auditory/spatial/personal) - 0(No abnormality) 1a. Level of Consciousness (LOC) - 0(Alert) 1b. Level of Consciousness (LOC) (Month \\T\\ Age) - 0(Both) 1c. LOC Commands (Open \\T\\ Closes Eyes/Urban Planning Professor) - 0(Both) 2. Best Gaze (Lateral Gaze Paresis) - 0(Normal) 3. Visual Field Loss - 0(No visual loss) 4. Facial Palsy - 0(Normal) 5a. Left Arm: Motor (10-second hold) - 0(No drift) 5b. Right Arm: Motor (10-second hold) - 0(No drift) 6a. Left Leg: Motor (5-second hold - always test supine) - 0(No drift) 6b. Right Leg: Motor (5-second hold - always test supine) - 0(No drift) 7. Limb Ataxia (finger/nose \\T\\ heel/ferrera - test with eyes open) - 0(Absent) 8. Sensory Loss (pinprick arms/legs/face) - 0(Normal) 9. Best Language: Aphasia (description/naming/reading) - 0(No aphasia) Initials: tm6 Signatures: Ramu Choi MD MD rn Baxter, Heather, RN RN hb Masterson, Tawney, RN RN tm6 Corrections: (The following items were deleted from the chart) 09:02 09:01 Constitutional: Negative for fever, chills, and weight loss, Eyes: rn Negative for injury, pain, redness, and discharge, Cardiovascular: Negative for chest pain, palpitations, and edema, Respiratory: Negative for shortness of breath, cough, wheezing, and pleuritic chest pain, Abdomen/GI: Negative for abdominal pain, nausea, vomiting, diarrhea, and constipation, Back: Negative for injury and pain, MS/Extremity: Negative for injury and deformity, Skin: Negative for injury, rash, and discoloration, Neuro: Positive for headache rn
== END 2023-06-07 09:22 | disposition home or self-care (01) ==
LOC: ER 07:33
DX: R51.9 Headache, unspecified (principal); Z88.5 Allergy status to narcotic agent; Z91.013 Allergy to seafood; Z91.018 Allergy to other foods
CPT/HCPCS: 96375; 96374; 99284; J2765; J1100; J7030

== ENCOUNTER 2023-11-24 13:35 | Emergency (ER) | payer OTHER ==
--- OUTSIDE RECORDS SUMMARY | 2023-11-24 13:40 | XMS REPORT | Continuity of Care Document ---
Author Name Unknown Address [address] [place] [address] [facility] thconnect Address [address] [place] [address] Care Team Providers Care Hay Baler Name Role Phone [facility] BAO, [facility] Primary Care Physician ANTONY JOSHUA Attending Clinician Unavail able SHEA SEBASTIAN Attending Clinician Unavailable SHEA SEBASTIAN Attending Clinician Unavailable ZEV VILLA Attending Clinician Unavailable JIMMY CARROLL Attending Clinician Unavailable Anne Graham Attending Clinician [phone] Zev Villa DO Attending Clinician [phone] Pcp-Lab Attending Clinician Unavailable Song Chang MD Attending Clinician [phone] Vtc-Lab Attending Clinician Unavailable SONG CHANG Attending Clinician Unavailable Doctor Unassigned, [place] Attending Clinician U SHANDRA Morin Attending Clinician Unavailable MARINO WILLS Attending Clinician Unavailable Pgy3 Attending Clinician Unavailable Marino Wills MD Attending Clinician [phone] MARCIANO WAYNE Attending Clinician Unavailab Marciano Fairchild MD Attending Clinician [phone] Felisa Covington Attending Clinician FELISA DAVIS Attending Clinician Unavailable Glen TAY, Jimmy Downing Attending Clinician [phone] Sourav TAY, Sharan Arthur Attending Clinician [phone] Leonie ALMANZAR, Katy Attending Clinician Unavailable Brody VEHICLE UPHOLSTERER, Simeon Carter Attending Clinician Unavail able SURESH BONILLA Attending Clinician Unavailabl e Haroldo DDS, Suresh Hemphill Attending Clinician [phone] Ibsocorro EDGE BASTER, Cristy F Attending Clinician [phone] Benitez WINDOW SHADE CUTTER, Peggy Attending Clinician + [phone] Mehul DDS, Chau Mccarthy Attending Clinician + [phone] CHAU CARVER Attending Clinician Unavailab zen Joshua MD, Antony Leach Attending Clinician +- [phone] Chucky TAY, Arianna Attending Clinician [phone] Jewel TAY, Otis Attending Clinician [phone] OTIS HOLLOWAY Attending Clinician Unavailable Only, Adc Test Attending Clinician Unavailable Carmine ALMANZAR, Melanie Downing Attending Clinician [phone] BENTLEY BEARDEN Attending Clinician Unavailable Pepe TAY, Eliz Attending Clinician [phone] Shawn Agudelo MD Attending Clinician + [phone] SHAWN AGUDELO Attending Clinician Unavaillui Gonzalez MD, Theodora Attending Clinician [phone] SENA JONES Attending Clinician Unavailable Karen EDGE BASTER, Sena Attending Clinician [phone] Alejandro Benites DO Attending Clinician [phone] Unknown, Attending Attending Clinician Unavailab zen LOPEZ, ATTENDING Attending Clinician Unavailab SON Pulido Attending Clinician Tiffany Shane VEHICLE UPHOLSTERER, Montse Mccormack Attending Clinician Unaary Jaquez Attending Clinician Unavailable Francis TAY, Jody Attending Clinician [phone] Suleiman TORREZ, Bentley Attending Clinician [phone] EMILY RIVERA Attending Clinician Unavailable Emily Rivera MD Attending Clinician + Only, [facility] Test Attending Clinician Unavailable SABINO DUMONT Attending Clinician UnavailSabino Eaton MD Attending Clinician + [phone] FRANKLYN CASTILLO Attending Clinician Unavailable Pgy2 Attending Clinician Unavailable Franklyn Castillo MD Attending Clinician [phone] Jack Ott MD Attending Clinician [phone] Alma Rosa Sethi MD Attending Clinician + Catalina Driscoll Attending Clinician [phone] Pcp, Patient Does Not Have A Attending Clinician Curt Koehler Attending Clinician +[phone] Curt KEMP Attending Clinician Unavailable JEANNINE, DR WHATLEY Attending Clinician Unavailable CINDI, DR KEYUR Elias Attending Clinician Unavailchana HUNT, DR MARKELL Diaz Attending Clinician Gisele hernandez BA, DR CARPENTER Attending Clinician Unavailable DR MELANIE LAI Attending Clinician Unavailchana WILL, DR LEACH Attending Clinician Unavailable TRISH, DR DARÍO Newton Attending Clinician ANTONY Miller Admitting Clinician Unavail able MARCIANO WAYNE Admitting Clinician Unavailab FELISA Ramos Admitting Clinician Unavailable SURESH BONILLA Admitting Clinician Unavaillui Bonilla DDS, Suresh Hemphill Admitting Clinician + [phone] Antony Joshua MD Admitting Clinician [phone] SENA JONES Admitting Clinician Unavailable Leonid Admitting Clinician Unavailable EMILY RIVERA Admitting Clinician Unavailable Emily Rivera MD Admitting Clinician + [phone] SABINO DUMONT Admitting Clinician UnavailMARINO Arriaza Admitting Clinician Unavailable Marino Wills MD Admitting Clinician + [phone] DR ZEV PAEZ Admitting Clinician Unavailable DR KEYUR PUENTE Admitting Clinician Unavailchana HUNT, DR MARKELL Diaz Admitting Clinician Gisele hernandez BA, DR CARPENTER Admitting Clinician Unavailable MING, DR MELANIE Downing Admitting Clinician Montse WILL, DR LEACH Admitting Clinician Selina CHAMBERS, DR DARÍO Newton Admitting Clinician Tiffany dumas Payers Payer Name Policy Type Policy Number Effective Date Expirati on Date Source [facility] CASE[facility]OOK [id number] 2021 00:00:00 2022 00:00:00 [facility] [id number] 2022 00:00:00 [facility] [id number] 2022 00:00:00 [facility] [id number] 2021 00:00:00 2021 00:00:00 Problems Condition Name Condition Details Condition Category Status Onset Date Resolution Date Last Treatment Date Treating Clinician Comments Source 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 Added automatic ally from request for surgery [id number] [facility] Chronic pelvic pain in female Chronic pelvic pain in female Disease Active 4-14 00:00: 00 Overview: Formattin g of this note might be different from the original. Added automatic ally from request for surgery [id number] [facility] Hydrosalpi nx Hydrosalpi nx Disease Active - 00:00: 00 [facility] Generalize d anxiety disorder Generalize d anxiety disorder Disease Active 11-12 00:00: 00 [facility] Bipolar disorder in full remission, most recent episode unspecifie d type Bipolar disorder in full remission, most recent episode unspecifie d type Disease Active 3-29 00:00: 00 [facility] Abdominal pain Abdominal pain Disease Active 2-23 00:00: 00 [facility] Allergies, Adverse Reactions, Alerts Allergy Name Allergy Type Status Severity Reaction(s) Onset Date Inactive Date Treating Clinician Comments Source HYDROCOD ONE-ACET AMINOPHE N DRUG Active ITCHING 2021-08 0-04 00:00: 00 [facility] Hydrocod one-Acet aminophe n Propensi ty to adverse reaction s Active Itching 2021-08 0-04 00:00: 00 [facility] Quetiapi ne Drug Intolera nce Active Other - See comments 6 00:00: 00 Made pt. Get really mad [facility] Shellfis h Derived Propensi ty to adverse reaction s Active Nausea and/or Vomiting 6- 00:00: 00 [facility] QUETIAPI NE DRUG INGREDI Active High Other-Cmnt 6- 00:00: 00 [facility] SHELLFIS H DERIVED DRUG INGREDI Active High ITCHING 6- 00:00: 00 [facility] Joe Propensi ty to adverse reaction s Active Anaphylaxis 4-08 00:00: 00 [facility] JOE DRUG INGREDI Active Anaphylaxis 0 4-08 00:00: 00 [facility] Codeine Propensi ty to adverse reaction s Active Itching 2-23 00:00: 00 To face [facility] CODEINE DRUG INGREDI Active ITCHING 0 2-23 00:00: 00 [facility] Social History Social Habit Start Date Stop Date Quantity Comments Source [facility] intake 2023-11-10 00:00:00 2023-11-10 00:00:00 Ex-drinker (finding) [facility] Tobacco use and exposure 2023-07-13 00:00:00 2023-07-13 00:00:00 Smokeless tobacco non-user [facility] History of Social function 2023-06-15 00:00:00 2023-06-15 00:00:00 [facility] Exposure to SARS-CoV-2 (event) 2022-10-28 00:00:00 2022-11-07 12:55:00 Not sure [facility] Alcohol Comment 2022-10-15 00:00:00 2022-10-15 00:00:00 stopped 7 weeks ago [facility] History of tobacco use 2022-05-19 00:00:00 Cigarette Smoker [facility] Tobacco Comment 2022-04-07 00:00:00 2022-04-07 00:00:00 Occassionally smokes 1 each [facility] Sex Assigned At 1980 00:00:00 1980 00:00:00 [facility] Smoking Status Start Date Stop Date Source Ex-smoker 2023-07-13 00:00:00 2023-07-13 00:00:00 [facility] Occasional tobacco smoker 2022-06-03 00:00:00 [facility] Smokes tobacco daily 2021-11-19 00:00:00 [facility] Medications Ordered Medication Name Filled Medication Name Start Date Stop Date Current Medication? Ordering Clinician Indication Dosage Frequency Signature (SIG) Comments Components Source cyclobenzap rine 10 mg tablet 11-09 00:00: 00 Yes [id number] 10mg Take 1 tablet by mouth in the morning and 1 tablet at noon and 1 tablet in the evening. [facility] amitriptyli ne 10 mg tablet 10-01 00:00: 00 01-29 04:59 :00 Yes [id number] 10mg Take 1 tablet by mouth at bedtime for 120 days. [facility] ubrogepant 100 mg Tab 2022-08 00:00: 00 Yes [id number] 100mg Take 1 tablet by mouth as needed for Other (Headache) for up to 64 doses. If symptoms persist or return, may repeat dose after 2 hours. Maximum: 200 mg per 24 hours [facility] topiramate 25 mg tablet 2022-08 00:00: 00 07-13 05:59 :00 No [id number] Take 1 tablet by mouth 2 (two) times daily for 7 days, THEN 2 tablets 2 (two) times daily for 21 days. [facility] sumatriptan 100 mg tablet 2022-08 00:00: 00 07-13 00:00 :00 No [id number] 100mg Take 1 tablet by mouth as needed for Migraine (Max of 2 tablets/da y.). [facility] ondansetron (ZOFRAN (PF)) injection 4 mg 11-04 17:45: 00 11-04 17:58 :00 No 4mg 4 mg, Slow IV Push, ONCE, 1 dose, On Thu11/04/22 at 1245, ANTOINETTE [facility] morpHINE (4 mg/mL) injection 4 mg 11-04 17:45: 00 11-04 17:58 :00 No 4mg 4 mg, Slow IV Push, ONCE, 1 dose, On Thu11/04/22 at 1245, STAT [facility] ketorolac (TORADOL) injection 30 mg 11-04 16:15: 00 11-04 15:45 :00 No 30mg 30 mg, Slow IV Push, ONCE, 1 dose, On Thu11/04/22 at 1115, ANTOINETTE [facility] OLANZapine 5 mg tablet 08-18 10:02: 06 08-18 00:00 :00 No 2.5mg Take 2.5 mg by mouth daily. [facility] TAKE 1 TABLET BY MOUTH EVERY 6 HOURS NEEDED 2021-08 00:00: 00 No OLANZapine 5 mg tablet 2021-08 13:28: 48 Yes 2.5mg Take 2.5 mg by mouth daily. [facility] ibuprofen (ADVIL CHILDREN'S) 100 mg/5 mL oral suspension 600 mg 2021-08 0 01:30: 00 Yes 600mg 600 mg, Oral, Q6H, First dose (after last modificati on) on Thu05/22/22 at 2030, Until Discontinu ed, Routine [facility] acetaminoph en (TYLENOL) 160 mg/5 mL oral liquid 650 mg 2021-08 007 01:15: 00 Yes 650mg 650 mg, Oral, Q6H, First dose (after last modificati on) on Thu05/22/22 at 2015, Until Discontinu ed, Routine [facility] ibuprofen 600 mg tablet 2021-08 0 00:00: 00 06-15 00:00 :00 No [id number] 101 600mg Take 1 tablet by mouth every 6 (six) hours as needed for Pain (scale 4-6). [facility] acetaminoph en (TYLENOL) 325 mg tablet 2021-08 00:00: 05-24 04:59 :00 No [id number] 101 650mg Take 2 tablets by mouth every 6 (six) hours as needed for Alternate with ibuprofen for pain scale 4-6. [facility] chlorhexidi ne 0.12 % mouthwash 2021-08 00:00: 00 10-15 00:00 :00 No [id number] 101 15mL Swish and spit out 15 mL in the morning and 15 mL in the evening. [facility] amoxicillin -clavulanat e (AUGMENTIN) 875-125 mg per tablet 2021-08 00:00: 00 05-31 04:59 :00 No [id number] 101 1{tbl} Take 1 tablet by mouth in the morning and 1 tablet in the evening. Do all this for 7 days. [facility] metroNIDAZO LE (FLAGYL) 500 mg tablet 2021-08 00:00: 00 05-31 04:59 :00 No [id number] 101 500mg Take 1 tablet by mouth every 12 (twelve) hours for 7 days. [facility] morpHINE (2 mg/mL) injection 2 mg 2021-08 0 18:14: 35 Yes 2mg 2 mg, Slow IV Push, Q4HPRN, Starting on Thu05/21/22 at 1314, Until Discontinu ed, Routine, Pain (scale 7-10) [facility] lactated ringers IV infusion 1,000 mL 2021-08 0 16:30: 00 Yes 1000mL at 75 mL/hr, 1,000 mL, IV Infusion, CONTINUOUS , Starting on Thu05/21/22 at 1130, Until Discontinu ed, Routine, PACU [facility] lidocaine 2% viscous (LIDOCAINE VISCOUS) 2 % solution 2021-08 0-05 15:56: 00 05-21 16:27 :27 No PRN, Starting on Thu05/21/22 at 1056, Until Thu05/21/22 at 1127, Routine, Intra-op [facility] chlorhexidi ne (PERIDEX) 0.12 % mouthwash 15 mL 2021-08 0-05 13:00: 00 Yes 15mL 15 mL, Oral (Swish And Spit Out), BID, First dose on Thu05/21/22 at 0800, Until Discontinu ed, Routine [facility]- sulbactam (UNASYN) 3 g in NaCl 0.9% (NS) 100 mL MINI-BAG 2021-08 0-05 04:30: 00 05-24 04:29 :00 No 3g 3 g, IV Piggyback, Q6H ABX, 12 doses, First dose on Thu05/20/22 at 2330, Last dose on Thu05/23/22 at 1730, Administer over 30 Minutes, 100 mL
Reas on for Anti-Infec tive: Documented Infection& lt;br>Docu mented Infection Site: HEENT
D uration of Therapy: Other (see Comments) [facility] lactated ringers IV infusion 1,000 mL 2021-08 0-05 03:45: 00 05-21 20:29 :02 No 1000mL at 125 mL/hr, 1,000 mL, IV Infusion, CONTINUOUS , Starting on Thu05/20/22 at 2245, Until Thu05/21/22 at 1529, Routine [facility] ketorolac (TORADOL) injection 15 mg 2021-08 0-05 03:29: 07 05-22 10:35 :00 No 15mg 15 mg, Slow IV Push, Q6HPRN, 4 doses, Starting on Thu05/20/22 at 2229, Until Discontinu ed, Routine, Pain (scale 4-6) [facility] ibuprofen (ADVIL CHILDREN'S) 100 mg/5 mL oral suspension 600 mg 2021-08 0-05 03:28: 25 05-22 23:30 :33 No 600mg 600 mg, Oral, Q6HPRN, Starting on Thu05/20/22 at 2228, Until Amberly 05/22/22 at 1830, Routine, Pain (scale 1-3) [facility] ondansetron (ZOFRAN (PF)) injection 4 mg 2021-08 0-05 03:28: 21 Yes 4mg 4 mg, Slow IV Push, Q4HPRN, Starting on Thu05/20/22 at 2228, Until Discontinu ed, Routine, Nausea and Vomiting (N/V) [facility] ampicillin- sulbactam (UNASYN) 3 g in NaCl 0.9% (NS) 100 mL MINI-BAG 2021-08 0-05 02:00: 00 05-21 03:32 :00 No 3g 3 g, IV Piggyback, ONCE, 1 dose, On Thu05/20/22 at 2100, Administer over 30 Minutes, 100 mL
Reas on for Anti-Infec tive: Documented Infection< br>Documen saw Infection Site: Other
O ther site: dental
Duration of Therapy: 7 days [facility] iopamidol (ISOVUE 370-500 mL) injection 70 mL 2021-08 0-05 02:00: 00 05-21 02:00 :00 No [id number] 101 70mL 70 mL, Intravenou s, ONCE, 1 dose, On Thu05/20/22 at 2100, Routine [facility] ondansetron (ZOFRAN (PF)) injection 4 mg 2021-08 0-05 00:15: 00 05-21 01:16 :00 No 4mg 4 mg, Slow IV Push, ONCE, 1 dose, On Thu05/20/22 at 1915, ANTOINETTE [facility] ketorolac (TORADOL) injection 30 mg 2021-08 0-05 00:00: 00 05-21 01:16 :00 No 30mg 30 mg, Slow IV Push, ONCE, 1 dose, On Thu05/20/22 at 1900, Routine [facility] OLANZapine 5 mg tablet 2021-08 0 23:41: 15 Yes 2.5mg Take 2.5 mg by mouth daily. [facility] amoxicillin -clavulanat e 875-125 mg per tablet 2021-08 0 00:00: 00 05-23 00:00 :00 No [id number] 101 1{tbl} Take 1 tablet by mouth every 12 (twelve) hours. [facility] ibuprofen 800 mg tablet 2021-08 0 00:00: 00 05-23 00:00 :00 No [id number] 101 800mg Take 1 tablet by mouth every 6 (six) hours as needed for Pain (scale 4-6). [facility] OLANZapine 5 mg tablet 01-26 04:20: 01 Yes 2.5mg Take 2.5 mg by mouth daily. [facility] acetaminoph en 325 mg tablet 01-24 00:00: 00 05-23 00:00 :00 No [id number] 650mg Take 2 tablets by mouth every 6 (six) hours as needed for Pain (scale 1-3). [facility] ibuprofen 600 mg tablet 01-24 00:00: 00 05-23 00:00 :00 No [id number] 600mg Take 1 tablet by mouth every 6 (six) hours as needed for Pain (scale 4-6). [facility] cyclobenzap rine 5 mg tablet 2020-08 2-14 00:00: 00 No 1mg azithromyci n 500 mg tablet 05-03 00:00: 00 No 2mg fluoxetine 20 mg tablet 04-25 00:00: 00 No 1mg prednisone 10 mg tablet 04-25 00:00: 00 No mg Dose Unknown 04-25 00:00: 00 No Dose Unknown 04-25 00:00: 00 No Zofran 4 mg tablet 04-06 00:00: 00 No 1mg Vital Signs Vital Name Observation Time Observation Value Comments S robin Systolic blood pressure 2023-11-10 14:30:00 124 mm[Hg] [facility] Diastolic blood pressure 2023-11-10 14:30:00 80 mm[Hg] [facility] Heart rate 2023-11-10 14:30:00 99 /min [facility] 2023-11-10 14:30:00 12 /min [facility] Body height 2023-11-10 14:30:00 157.5 cm [facility] weight 2023-11-10 14:30:00 63.05 kg [facility] BMI 2023-11-10 14:30:00 25.42 kg/m2 [facility] Oxygen saturation in Arterial blood by Pulse oximetry 2023-11-10 14:30:00 96 /min [facility] Systolic blood pressure 2023-11-03 20:42:00 131 mm[Hg] [facility] Diastolic blood pressure 2023-11-03 20:42:00 87 mm[Hg] [facility] Heart rate 2023-11-03 20:42:00 89 /min [facility] Body temperature 2023-11-03 20:42:00 36.11 Xin [facility] Body height 2023-11-03 20:42:00 157.5 cm [facility] Body weight 2023-11-03 20:42:00 63.05 kg [facility] BMI 2023-11-03 20:42:00 25.42 kg/m2 [facility]xygen saturation in Arterial blood by Pulse oximetry 2023-11-03 20:42:00 98 /min [facility] Systolic blood pressure 2023-10-01 19:21:00 126 mm[Hg] [facility] Diastolic blood pressure 2023-10-01 19:21:00 84 mm[Hg] [facility] Heart rate 2023-10-01 19:21:00 87 /min Unive [facility] Respiratory rate 2023-10-01 19:21:00 16 /min [facility] Body height 2023-10-01 19:21:00 157.5 cm [facility] 2023-10-01 19:21:00 65.227 kg [facility] BMI 2023-10-01 19:21:00 26.30 kg/m2 [facility] Oxygen saturation in Arterial blood by Pulse oximetry 2023-10-01 19:21:00 95 /min [facility] Systolic blood pressure 2023-07-13 14:04:00 131 mm[Hg] [facility] Diastolic blood pressure 2023-07-13 14:04:00 84 mm[Hg] [facility] Heart rate 2023-07-13 14:04:00 77 /min Un[facility] Respiratory rate 2023-07-13 14:04:00 18 /min [facility] Body height 2023-07-13 14:04:00 157.5 cm [facility] Body weight 2023-07-13 14:04:00 64.456 kg [facility] BMI 2023-07-13 14:04:00 25.99 kg/m2 [facility] Oxygen saturation in Arterial blood by Pulse oximetry 2023-07-13 14:04:00 99 /min [facility] Systolic blood pressure 2023-06-15 18:59:00 124 mm[Hg] [facility] Diastolic blood pressure 2023-06-15 18:59:00 79 mm[Hg] [facility] Heart rate 2023-06-15 18:59:00 78 /min Un[facility] Body height 2023-06-15 18:59:00 157.5 cm [facility] Body weight 2023-06-15 18:59:00 66.044 kg [facility] BMI 2023-06-15 18:59:00 26.63 kg/m2 [facility] Oxygen saturation in Arterial blood by Pulse oximetry 2023-06-15 18:59:00 100 /min [facility] Systolic blood pressure 2022-11-07 18:04:00 144 mm[Hg] [facility] Diastolic blood pressure 2022-11-07 18:04:00 101 mm[Hg] [facility] Heart rate 2022-11-07 17:54:00 82 /min Un[facility] Body temperature 2022-11-07 17:54:00 36.44 Xni [facility] Respiratory rate 2022-11-07 17:54:00 18 /min [facility] Body height 2022-11-07 17:54:00 157.5 cm [facility] Body weight 2022-11-07 17:54:00 56.836 kg [facility] BMI 2022-11-07 17:54:00 22.92 kg/m2 [facility] Systolic blood pressure 2022-11-04 19:41:00 130 mm[Hg] [facility] Diastolic blood pressure 2022-11-04 19:41:00 75 mm[Hg] [facility] Heart rate 2022-11-04 19:41:00 77 /min Un[facility] Body temperature 2022-11-04 19:41:00 37 Xin [facility] Respiratory rate 2022-11-04 19:41:00 18 /min [facility] Oxygen saturation in Arterial blood by Pulse oximetry 2022-11-04 19:41:00 100 /min [facility] Body weight 2022-11-04 14:05:00 58.968 kg [facility] BMI 2022-11-04 14:05:00 23.78 kg/m2 [facility] Systolic blood pressure 2022-10-15 20:04:00 111 mm[Hg] [facility] Diastolic blood pressure 2022-10-15 20:04:00 77 mm[Hg] [facility] Heart rate 2022-10-15 20:04:00 70 /min Un[facility] Body temperature 2022-10-15 20:04:00 36.11 Xin [facility] Respiratory rate 2022-10-15 20:04:00 18 /min [facility] Body height 2022-10-15 20:04:00 157.5 cm [facility] Body weight 2022-10-15 20:04:00 60.328 kg [facility] BMI 2022-10-15 20:04:00 24.33 kg/m2 [facility] Systolic blood pressure 2022-08-18 15:31:00 115 mm[Hg] [facility] Diastolic blood pressure 2022-08-18 15:31:00 78 mm[Hg] [facility] Heart rate 2022-08-18 15:31:00 59 /min Un[facility] Body temperature 2022-08-18 15:31:00 36.83 [facility] Respiratory rate 2022-08-18 15:31:00 18 /min [facility] Body height 2022-08-18 15:31:00 157.5 cm [facility] Body weight 2022-08-18 15:31:00 58.287 kg [facility] BMI 2022-08-18 15:31:00 23.50 kg/m2 [facility] Oxygen saturation in Arterial blood by Pulse oximetry 2022-08-18 15:31:00 99 /min [facility] Systolic blood pressure 2022-06-03 15:14:00 126 mm[Hg] [facility] Diastolic blood pressure 2022-06-03 15:14:00 81 mm[Hg] [facility] Heart rate 2022-06-03 15:14:00 77 /min Unive [facility] Body temperature 2022-06-03 15:14:00 37.22 Xin [facility] Body height 2022-06-03 15:14:00 157.5 cm [facility] Body weight 2022-06-03 15:14:00 56.246 kg [facility] BMI 2022-06-03 15:14:00 22.68 kg/m2 [facility] Systolic blood pressure 2022-05-23 13:01:00 133 mm[Hg] [facility] Diastolic blood pressure 2022-05-23 13:01:00 89 mm[Hg] [facility] Heart rate 2022-05-23 13:01:00 88 /min Unive [facility] Body temperature 2022-05-23 13:01:00 36.89 [facility] Respiratory rate 2022-05-23 13:01:00 16 /min [facility] Oxygen saturation in Arterial blood by Pulse oximetry 2022-05-23 13:01:00 99 /min [facility] Body weight 2022-05-20 23:15:00 55.792 kg [facility] BMI 2022-05-20 23:15:00 22.50 kg/m2 [facility] Systolic blood pressure 2022-05-21 16:45:00 145 mm[Hg] [facility] Diastolic blood pressure 2022-05-21 16:45:00 83 mm[Hg] [facility] Respiratory rate 2022-05-21 16:45:00 16 /min [facility] Oxygen saturation in Arterial blood by Pulse oximetry 2022-05-21 16:45:00 100 /min [facility] Heart rate 2022-05-21 16:20:00 85 /min [facility] Body temperature 2022-05-21 16:20:00 36.39 [facility] Body weight 2022-05-20 23:15:00 55.792 kg [facility] BMI 2022-05-20 23:15:00 22.50 kg/m2 [facility] Systolic blood pressure 2022-05-08 19:04:00 148 mm[Hg] [facility] Diastolic blood pressure 2022-05-08 19:04:00 89 mm[Hg] [facility] Heart rate 2022-05-08 19:04:00 83 /min [facility] Body temperature 2022-05-08 19:04:00 37.06 [facility] Body height 2022-05-08 19:04:00 157.5 cm [facility] 2022-05-08 19:04:00 55.656 kg [facility] BMI 2022-05-08 19:04:00 22.44 kg/m2 [facility] Oxygen saturation in Arterial blood by Pulse oximetry 2022-05-08 19:04:00 100 /min [facility] Systolic blood pressure 2022-03-31 16:36:00 126 mm[Hg] [facility] Diastolic blood pressure 2022-03-31 16:36:00 86 mm[Hg] [facility] Heart rate 2022-03-31 16:36:00 76 /min [facility] Body temperature 2022-03-31 16:36:00 36.22 Xin [facility] Respiratory rate 2022-03-31 16:36:00 16 /min [facility] Body height 2022-03-31 16:36:00 157.5 cm [facility] Body weight 2022-03-31 16:36:00 55.702 kg [facility] BMI 2022-03-31 16:36:00 22.46 kg/m2 [facility] BP Systolic 2022-07-14 11:21:00 [...] /min Respiratory Rate 2021-07-30 13:35:00 16.00 /min Weight Measured 2019-04-28 08:29:00 153.00 pounds Height Measured 2019-04-28 08:29:00 62.50 inches Body Temperature 2019-04-28 08:29:00 98.80 degrees Heart Rate 2019-04-28 08:29:00 70.00 /min Respiratory Rate 2019-04-28 08:29:00 16.00 /min BP Systolic 2019-04-28 08:29:00 120 mm[Hg] BP Diastolic 2019-04-28 08:29:00 77 mm[Hg] BP Systolic 2019-04-25 12:04:00 125 mm[Hg] BP [...] 16.00 /min Procedures Procedure Date / Time Performed Performing Clinician Source C4 COMPLEMENT 2023-11-03 21:35:00 Shea Sebastian [facility] THYROID STIMULATING HORMONE 2023-11-03 21:35:00 Shea Sebastian [facility] URINALYSIS 2023-11-03 21:35:00 Shea Sebastian [facility] VITAMIN D, 25-OH 2023-11-03 21:35:00 [facility] ANTI-CENTROMERE B 2023-11-03 21:35:00 Shea Sebastian [facility] ANTI-SSA(RO) 2023-11-03 21:35:00 Shea Sebastian [facility] ANTI-DOUBLE STRANDED DNA 2023-11-03 21:35:00 Giovanni Sebastian [facility] XR CERVICAL SPINE 2 VW 2023-10-01 21:45:25 Mikey Chang [facility] ASSIGNMENT OF BENEFITS 2023-06-15 18:19:46 Docto r Unassigned, [place] [facility] URINALYSIS 2022-11-04 15:50:00 Marciano Wayne [facility] BASIC METABOLIC PANEL (NA, K, CL, CO2, GLUCOSE, BUN, CREATININE, CA) 2022-11-04 15:30:00 Marciano Wayne [facility] CBC WITH DIFF 2022-11-04 15:30:00 Marciano Wayne [facility] CONSENT/REFUSAL FOR DIAGNOSIS AND TREATMENT 2022-11-04 13:58:51 Doctor Unassigned, [facility] US PELVIS COMPLETE WITH TRANSVAGINAL 2022-10-28 18:57:42 Felisa Davis [facility] CBC WITH DIFF 2022-10-15 21:08:00 Felisa Davis [facility] PATIENT QUESTIONNAIRE 2022-08-18 06:01:00 Doctor Unassigned, [facility] [facility] CBC WITH DIFF 2022-05-23 10:24:00 [facility] 2022-05-22 10:42:00 [facility] ORAL CAVITY 2022-05-21 15:35:00 Suresh Bonilla [facility] TOOTH EXTRACTION 2022-05-21 15:35:00 Suresh Bonilla [facility] INCISION AND DRAINAGE ORAL CAVITY 2022-05-21 15:35:00 Suresh Bonilla [facility] TOOTH EXTRACTION 2022-05-21 15:35:00 Suresh Bonilla [facility] CBC WITH DIFF 2022-05-21 09:58:00 Kennedy [facility] 2022-05-21 09:58:00 [facility]MANDIBLE W CONTRAST 2022-05-21 01:00:55 Cristy Lowe [facility] CT MAXILLOFACIAL/MANDIBLE W CONTRAST 2022-05-21 01:00:55 Cristy Lowe [facility] COMP. METABOLIC PANEL (15538) 2022-05-21 00:37:00 Cristy Lowe [facility] CBC WITH DIFF 2022-05-21 00:37:00 Cristy Lowe [facility] COMP. METABOLIC PANEL (42768) 2022-05-21 00:37:00 Cristy Lowe [facility] CBC WITH DIFF 2022-05-21 00:37:00 Cristy Lowe [facility] CONSENT/REFUSAL FOR DIAGNOSIS AND TREATMENT 2022-05-20 23:16:33 Doctor Unassigned, [place] [facility] CONSENT/REFUSAL FOR DIAGNOSIS AND TREATMENT 2022-05-20 23:16:33 Doctor Unassigned, [facility] DISCLOSURE AND CONSENT, MEDICAL AND SURGICAL PROCEDURES 2022-05-08 05:01:00 Doctor Unassigned, [facility] REFERRAL- REQUEST/RESPONSE 2022-04-24 05:01:00 Doctor Unassigned, [place] Plan of Care Planned Activity Planned Date Details Comments Source Goal Plan of Care Note [code = 72975-1] Goal Plan of Care Note [code = 32870-9] Goal Plan of Care Note [code = 44952-0] Goal Plan of Care Note [code = 26132-6] Goal Plan of Care Note [code = 43009-2] Goal Plan of Care Note [code = 68833-9] Goal Plan of Care Note [code = 52026-6] Goal Plan of Care Note [code = 54866-2] Goal Plan of Care Note [code = 63435-4] Goal Plan of Care Note [code = 95760-7] Goal Plan of Care Note [code = 80774-5] Goal Plan of Care Note [code = 06261-0] Goal Plan of Care Note [code = 55292-2] Goal Plan of Care Note [code = 34501-7] Goal Plan of Care Note [code = 39268-2] Goal Plan of Care Note [code = 88303-5] Goal Plan of Care Note [code = 70449-6] Goal Plan of Care Note [code = 78977-5] Goal Plan of Care Note [code = 12945-5] Goal Plan of Care Note [code = 75332-0] Goal Plan of Care Note [code = 63524-2] Encounters Start Date/Time End Date/Time Encounter Type Admission Type Attending [facility] Care Department Encounter ID Source 2021-12-24 13:43:15 Outpatient R ANTONY JOSHUA [facility] MAINTENANCE SERVICES DISPATCHER [id number] [facility] 2021-12-23 07:21:46 Outpatient R ANTONY JOSHUA [facility] MAINTENANCE SERVICES DISPATCHER [id number] [facility] 2024-02-04 15:15:00 2024-02-04 15:15:00 Outpatient SHEA LEWIS LAURA [facility] [id number] [facility] 2024-01-12 13:30:00 2024-01-12 13:30:00 Outpatient ZEV JULIEN [facility] [id number] [facility] 2023-11-19 15:30:00 2023-11-19 15:30:00 Outpatient JIMMY NIELSON [facility] [id number] [facility] 2023-11-17 00:00:00 2023-11-17 00:00:00 Outpatient ZEV JULIEN [facility] [id number] [facility] 2023-11-13 00:00:00 2023-11-13 00:00:00 Telephone Anne Magdaleno [facility] 1..840.114 350.1.13.10 4.2.7.2.686 [id number] [facility] 2023-11-10 10:00:00 2023-11-10 10:48:16 Outpatient ZEV JULIEN [facility] [id number] [facility] 2023-11-10 10:00:00 2023-11-10 10:48:16 Office Visit Zev Villa [facility] 1..840.114 350.1.13.10 4.2.7.2.686 [id number] [facility] 2023-11-10 00:00:00 2023-11-10 00:00:00 Telephone Zev Villa [facility] MULTISPEC IALTY CENTER [facility] 1.2.840.114 350.1.13.10 4.2.7.2.686 [id number] [facility] 2023-11-03 16:45:00 2023-11-03 17:00:00 Jewelsmith Visit Pcp-Lab Shea Sebastian [facility] PRIMARY [facility]ARE PAVILLION 1.2.840.114 350.1.13.10 4.2.7.2.686 [id number] [facility] 2023-11-03 16:45:00 2023-11-03 16:45:00 Outpatient R SHEA SEBASTIAN LAURA [facility] [id number] [facility] 2023-11-03 16:15:00 2023-11-03 16:24:45 Office Visit Shea Sebastian [facility] 1.2.840.114 350.1.13.10 4.2.7.2.686 [id number] [facility] 2023-10-26 00:00:00 2023-10-26 00:00:00 Telephone Song Chang [facility] MULTISPEC IALTY CENTER AND [facility] 1.2.840.114 350.1.13.10 4.2.7.2.686 [id number] [facility] 2023-10-01 15:26:42 2023-10-01 23:59:00 Hospital Encounter Song Chang [facility] SPECIAL[facility] AT [facility] 1.2.840.114 350.1.13.10 4.2.7.2.686 [id number] [facility] 2023-10-01 15:00:00 2023-10-01 15:15:00 Jewelsmith Visit Vtc-Lab Song Chang [facility] IALTY [place] [facility] 1.114 350.1.13.10 4.2.7.2.686 [id number] [facility] 2023-10-01 13:45:00 2023-10-01 14:52:53 Outpatient R SONG CHANG PETER [facility] [id number] [facility] 2023-10-01 13:45:00 2023-10-01 14:52:53 Office Visit Song Chang [facility] IAY [place] [facility] 1.114 350.1.13.10 4.2.7.2.686 [id number] [facility] 2023-07-14 09:00:00 2023-07-14 09:00:00 Outpatient R ROMI ANNE [facility] [id number] [facility] 2023-07-13 08:00:00 2023-07-13 08:48:11 [facility] [id number] 2023-07-13 08:00:00 2023-07-13 08:48:11 [facility] 1.840.114 350.1.13.10 4.2.7.2.686 [id number] [facility] 2023-06-15 14:00:00 2023-06-15 14:35:44 [facility] [id number] [facility] 2023-06-15 14:00:00 2023-06-15 14:35:44 [facility] 1.84.114 350.1.13.10 4.2.7.2.686 [id number] [facility] 2023-06-15 00:00:00 2023-06-15 00:00:00 Orders Only Doctor Unassigned, [place] [facility] 1.2840.114 350.1.13.10 4.2.7.2.686 [id number] [facility] 2023-05-18 14:30:00 2023-05-18 14:30:00 Outpatient SHANDRA SCHULTZ [facility] [id number] [facility] 2023-04-01 00:00:00 2023-04-01 00:00:00 Patient Secure Msg Doctor Unassigned, [place] [facility] 1.2840.114 350.1.13.10 4.2.7.2.686 [id number] [facility] 2023-03-31 00:00:00 2023-03-31 00:00:00 Patient Secure Msg Doctor Unassigned, [place] [facility] 1.2840.114 350.1.13.10 4.2.7.2.686 [id number] [facility] 2022-11-14 00:00:00 2022-11-14 00:00:00 Patient Secure Msg Doctor Unassigned, [place] [facility]ING [facility]ENT [facility] 1.2840.114 350.1.13.10 4.2.7.2.686 [id number] [facility] 2022-11-07 13:00:00 2022-11-07 13:54:22 Outpatient MARINO LOERA [facility] [id number] [facility] 2022-11-07 13:00:00 2022-11-07 13:54:22 Office Visit Pgy3 Marino Wills [facility] 1.2840.114 350.1.13.10 4.2.7.2.686 [id number] [facility] 2022-11-04 09:06:00 2022-11-04 15:02:00 Emergency X MARCIANO WAYNE [facility] ERT [id number] [facility] 2022-11-04 09:06:00 2022-11-04 15:02:00 Emergency Marciano [facility] 1.2840.114 350.1.13.10 4.2.7.2.686 [id number] [facility] 2022-11-03 00:00:00 2022-11-03 00:00:00 Telephone [facility] 1.0.114 350.1.13.10 4.2.7.2.686 [id number] [facility] 2022-10-28 13:07:55 2022-10-28 23:59:00 Outpatient R [facility] [id number] [facility] 2022-10-28 13:07:55 2022-10-28 23:59:00 Hospital Encounter [facility] 1.0.114 350.1.13.10 4.2.7.2.686 [id number] [facility] 2022-10-15 13:30:00 2022-10-15 15:10:01 Outpatient R [facility] [id number] [facility] 2022-10-15 13:30:00 2022-10-15 15:10:01 Office Visit [facility] 1..114 350.1.13.10 4.2.7.2.686 [id number] [facility] 2022-08-18 11:30:00 2022-08-18 11:45:00 Jewelsmith Visit Pcp-Lab Jimmy Carroll [facility] PRIMARY CARE PAVILLION 1.0.114 350.1.13.10 4.2.7.2.686 [id number] [facility] 2022-08-18 09:40:00 2022-08-18 10:58:45 Outpatient JIMMY NIELSON [facility] [id number] [facility] 2022-08-18 09:40:00 2022-08-18 10:58:45 Office Visit Sharan Benjamin Samuel E [facility] 1.0.114 350.1.13.10 4.2.7.2.686 [id number] [facility] 2022-08-18 00:00:00 2022-08-18 00:00:00 Orders Only Doctor Unassigned, [place] [facility] 1.0.114 350.1.13.10 4.2.7.2.686 [id number] [facility] 2022-07-22 14:00:34 2022-07-22 14:00:34 Outpatient [facility] [id number] Kp Chatman 2022-07-18 00:00:00 2022-07-18 00:00:00 Nurse Triage Katy Hadley [facility] 1..114 350.1.13.10 4.2.7.2.686 [id number] [facility] 2022-07-18 00:00:00 2022-07-18 00:00:00 Telephone Felisa Davis [facility] 1..114 350.1.13.10 4.2.7.2.686 [id number] [facility] 2022-07-14 11:05:24 2022-07-14 11:05:24 Outpatient [facility] [id number] Kp Chatman 2022-07-14 00:00:00 2022-07-14 00:00:00 Outpatient Visit [id number] 2022-07-01 00:00:00 2022-07-01 00:00:00 Patient Outreach Simeon Skinner 1.2.840.114 350.1.13.10 4.2.7.2.686 [id number] [facility] 2022-06-16 00:00:00 2022-06-16 00:00:00 Patient Outreach Simeon Skinner 1.2.840.114 350.1.13.10 4.2.7.2.686 [id number] [facility] 2022-06-03 10:00:00 2022-06-03 10:23:42 Outpatient R SURESH BONILLA [facility] [id number] [facility] 2022-06-03 10:00:00 2022-06-03 10:23:42 Office Visit Suresh Bonilla [facility] 1.20.114 350.1.13.10 4.2.7.2.686 [id number] [facility] 2022-05-26 00:00:00 2022-05-26 00:00:00 Telephone [facility]uresh Bonilla [facility] 1.2840.114 350.1.13.10 4.2.7.2.686 [id number] [facility] 2022-05-20 18:17:00 2022-05-23 13:28:00 Outpatient X SURESH BONILLA [facility] [id number] [facility] 2022-05-20 18:17:00 2022-05-23 13:28:00 Emergency Cristy Lowe Jeffrey J [facility] 1.2840.114 350.1.13.10 4.2.7.2.686 [id number] [facility] 2022-05-23 00:00:00 2022-05-23 00:00:00 Transition of Care BenitezPeggy diaz 1.2.840.114 350.1.13.10 4.2.7.2.686 [id number] [facility] 2022-05-21 10:24:00 2022-05-21 11:48:00 Surgery Suresh Bonilla [facility] 1.2.840.114 350.1.13.10 4.2.7.2.686 [id number] [facility] 2022-05-20 00:00:00 2022-05-20 00:00:00 Telephone Chau Carver [facility] 1.2.840.114 350.1.13.10 4.2.7.2.686 [id number] [facility] 2022-05-08 14:00:00 2022-05-08 14:30:00 Office Visit Chau Carver [facility] 1.20.114 350.1.13.10 4.2.7.2.686 [id number] [facility] 2022-05-08 14:00:00 2022-05-08 14:00:00 Outpatient CHAU BANGURA [facility] [id number] [facility] 2022-05-08 00:00:00 2022-05-08 00:00:00 Orders Only Doctor Unassigned, [place] [facility] 1.2840.114 350.1.13.10 4.2.7.2.686 [id number] [facility] 2022-04-29 10:00:00 2022-04-29 10:00:00 Outpatient SURESH MARSHALL [facility] [id number] [facility] 2022-04-24 00:00:00 2022-04-24 00:00:00 Orders Only Doctor Unassigned, [place] [facility] 1.2.840.114 350.1.13.10 4.2.7.2.686 [id number] [facility] 2022-03-31 11:15:00 2022-03-31 11:48:34 Office Visit [facility] 1.2.840.114 350.1.13.10 4.2.7.2.686 [id number] [facility] 2022-03-31 11:15:00 2022-03-31 11:48:34 [id number] 2022-03-31 11:15:00 2022-03-31 11:15:00 [id number] 2022-01-25 00:00:00 2022-01-25 00:00:00 Telephone [facility] 1.2840.114 350.1.13.10 4.2.7.2.686 [id number] [facility] 2022-01-23 05:56:00 2022-01-24 16:20:00 Outpatient R JOSIANE [facility] MAINTENANCE SERVICES DISPATCHER [id number] [facility] 2022-01-23 05:56:00 2022-01-24 16:20:00 Hospital Encounter [facility] 1.2840.114 350.1.13.10 4.2.7.2.686 [id number] [facility] 2022-01-23 07:00:00 2022-01-23 12:15:00 Surgery [facility] 1.2.840.114 350.1.13.10 4.2.7.2.686 [id number] [facility] 2022-01-23 00:00:00 2022-01-23 00:00:00 Orders Only Doctor Unassigned, [place] [facility] 1.2.840.114 350.1.13.10 4.2.7.2.686 [id number] [facility] 2022-01-21 00:00:00 2022-01-21 00:00:00 Telephone Pgy3 [facility] 1.2.840.114 350.1.13.10 4.2.7.2.686 [id number] [facility] 2022-01-20 00:00:00 2022-01-20 00:00:00 Telephone Arianna Locke [facility] 1.2.840.114 350.1.13.10 4.2.7.2.686 [id number] [facility] 2022-01-16 00:00:00 2022-01-16 00:00:00 Patient Secure Msg [facility] 1.20.114 350.1.13.10 4.2.7.2.686 [id number] [facility] 2022-01-15 07:44:45 2022-01-15 23:59:00 [facility] [id number] [facility] 2022-01-15 07:43:28 2022-01-15 07:43:28 Outpatient [facility] [id number] [facility] 2022-01-14 08:45:00 2022-01-14 09:00:00 Laboratory Only Only, [facility] 1.2.840.114 350.1.13.10 4.2.7.2.686 [id number] [facility] 2022-01-14 08:45:00 2022-01-14 08:45:00 [facility] [id number] [facility] 2022-01-10 00:00:00 2022-01-10 00:00:00 Patient Outreach Melanie Lou 1.840.114 350.1.13.10 4.2.7.2.686 [id number] [facility] 2021-12-27 13:00:00 2021-12-27 13:00:00 [facility] [id number] 2021-12-27 13:00:00 2021-12-27 13:00:00 [facility] [id number] [facility] 2021-12-27 09:00:00 2021-12-27 09:00:00 [facility] [id number] [facility] 2021-12-25 10:00:00 2021-12-25 10:29:11 [facility] 1.840.114 350.1.13.10 4.2.7.2.686 [id number] [facility] 2021-12-25 10:00:00 2021-12-25 10:29:11 Outpatient [facility] [id number] [facility] 2021-12-25 10:00:00 2021-12-25 10:00:00 Outpatient R JEWEL [facility] [id number] [facility] 2021-12-22 00:00:00 2021-12-22 00:00:00 Patient Secure Msg Cantu [facility] 1..840.114 350.1.13.10 4.2.7.2.686 [id number] [facility] 2021-12-22 00:00:00 2021-12-22 00:00:00 Prep For Surgery [facility] 1.2.840.114 350.1.13.10 4.2.7.2.686 [id number] [facility] 2021-12-22 00:00:00 2021-12-22 00:00:00 Case Management Eliz Cantu [facility] 1.2.840.114 350.1.13.10 4.2.7.2.686 [id number] [facility] 2021-12-18 00:00:00 2021-12-18 00:00:00 Patient Secure Msg Doctor Unassigned, [place] [facility] 1.2840.114 350.1.13.10 4.2.7.2.686 [id number] [facility] 2021-12-11 15:30:00 2021-12-11 15:30:00 Outpatient R ANTONY JOSHUA [facility] MAINTENANCE SERVICES DISPATCHER [id number] [facility] 2021-12-09 10:45:00 2021-12-09 11:00:00 Laboratory Only Only, Adc Test Shawn Agudelo [facility] 1.2840.114 350.1.13.10 4.2.7.2.686 [id number] [facility] 2021-12-09 10:45:00 2021-12-09 10:45:00 Outpatient SHAWN LORA [facility] [id number] [facility] 2021-12-09 10:45:00 2021-12-09 10:45:00 Outpatient SHAWN LORA [facility] [id number] [facility] 2021-12-09 00:00:00 2021-12-09 00:00:00 Telephone Theodora Gonzalez [facility] 1.20.114 350.1.13.10 4.2.7.2.686 [id number] [facility] 2021-12-06 15:32:00 2021-12-06 17:11:00 Emergency X SENA JONES [facility] ERT [id number] [facility] 2021-12-06 15:32:00 2021-12-06 17:11:00 Emergency [facility] 1..840.114 350.1.13.10 4.2.7.2.686 [id number] [facility] 2021-12-06 15:32:00 2021-12-06 17:11:00 Emergency X SENA JONES [facility] ERT [id number] [facility] 2021-12-06 15:32:00 2021-12-06 15:32:00 Emergency X KARENSENA MELENDEZ [facility] ERT [id number] [facility] 2021-12-06 13:10:00 2021-12-06 13:40:00 Office Visit Alejandro Benites Unknown, Attending [facility] 1..840.114 350.1.13.10 4.2.7.2.686 [id number] [facility] 2021-12-06 13:10:00 2021-12-06 13:10:00 Outpatient R UNKNOWN, ATTENDING [facility] [id number] [facility] 2021-12-06 13:10:00 2021-12-06 13:10:00 Outpatient R UNKNOWN, ATTENDING [facility] [id number] [facility] 2021-12-06 13:10:00 2021-12-06 13:10:00 Outpatient R SON SELBY [facility] [id number] [facility] 2021-12-06 00:00:00 2021-12-06 00:00:00 Case Management Montse Shane [facility] 1..840.114 350.1.13.10 4.2.7.2.686 [id number] [facility] 2021-12-05 04:22:00 2021-12-05 04:22:00 [facility] [id number] Karrie da [facility] 2021-12-05 00:00:00 2021-12-05 00:00:00 Case Management Antony Joshua [facility] MEDICAL OFFICE BUILDING 1.2.840.114 350.1.13.10 4.2.7.2.686 [id number] [facility] 2021-12-05 00:00:00 2021-12-05 00:00:00 [facility] 1..840.114 350.1.13.10 4.2.7.2.686 [id number] [facility] 2021-11-29 13:00:00 2021-11-29 13:00:00 Outpatient BENTLEY LEWIS [facility] [id number] [facility] 2021-11-28 00:00:00 2021-11-28 00:00:00 [facility] 1..840.114 350.1.13.10 4.2.7.2.686 [id number] [facility] 2021-11-28 00:00:00 2021-11-28 00:00:00 Telephone Bentley Bearden [facility] 1.2840.114 350.1.13.10 4.2.7.2.686 [id number] [facility] 2021-11-22 09:07:00 2021-11-22 16:38:00 Outpatient EMILY NAVAS [facility] MAINTENANCE SERVICES DISPATCHER [id number] [facility] 2021-11-22 09:07:00 2021-11-22 16:38:00 Hospital Emily Nieto [facility] 1.2.840.114 350.1.13.10 4.2.7.2.686 [id number] [facility] 2021-11-22 11:05:00 2021-11-22 13:43:00 Surgery Emily Rivera [facility] 1.2.840.114 350.1.13.10 4.2.7.2.686 [id number] [facility] 2021-11-22 00:00:00 2021-11-22 00:00:00 Telephone JoshuaAntony fermin [facility] 1.2.840.114 350.1.13.10 4.2.7.2.686 [id number] [facility] 2021-11-21 13:15:00 2021-11-21 13:18:56 Outpatient EMILY NAVAS [facility] [id number] [facility] 2021-11-21 13:15:00 2021-11-21 13:18:56 Laboratory Only Only, [facility] Test Emily Rivera [facility] 1.20.114 350.1.13.10 4.2.7.2.686 [id number] [facility] 2021-11-21 09:00:00 2021-11-21 09:00:00 Outpatient EMILY NAVAS [facility] [id number] [facility] 2021-11-18 11:41:00 2021-11-18 17:07:00 Emergency X SABINO DUMONT [facility] ERT [id number] [facility] 2021-11-18 11:41:00 2021-11-18 17:07:00 Emergency Sabino Dumont [facility] 1.2.840.114 350.1.13.10 4.2.7.2.686 [id number] [facility] 2021-11-12 13:00:00 2021-11-12 15:18:33 [facility] 1.2.840.114 350.1.13.10 4.2.7.2.686 [id number] [facility] 2021-11-12 13:00:00 2021-11-12 15:18:33 [facility] [id number] [facility] 2021-11-12 13:00:00 2021-11-12 13:00:00 Outpatient Shari [facility] [id number] [facility] 2021-11-12 13:00:00 2021-11-12 13:00:00 Outpatient Shari DAVIS [facility] [id number] [facility] 2021-11-12 00:00:00 2021-11-12 00:00:00 Orders Only Doctor Unassigned, [place] [facility] 1.2.840.114 350.1.13.10 4.2.7.2.686 [id number] [facility] 2021-10-29 00:00:00 2021-10-29 00:00:00 [facility] 1.2.840.114 350.1.13.10 4.2.7.2.686 [id number] [facility] 2021-10-24 13:15:00 2021-10-24 15:47:39 Outpatient R FRANKLYN CASTILLO [facility] [id number] [facility] 2021-10-24 13:15:00 2021-10-24 15:47:39 Outpatient R FRANKLYN CASTILLO [facility] [id number] [facility] 2021-10-24 13:15:00 2021-10-24 15:47:39 Outpatient R FRANKLYN CASTILLO [facility] [id number] [facility] 2021-10-24 13:15:00 2021-10-24 15:47:39 Office Visit Pgy2 Felisa Davis Otto W [facility] 1.840.114 350.1.13.10 4.2.7.2.686 [id number] [facility] 2021-10-24 13:15:00 2021-10-24 13:15:00 Outpatient R FRANKLYN CASTILLO [facility] [id number] [facility] 2021-10-24 00:00:00 2021-10-24 00:00:00 Telephone Jack Ott [facility] 1.840.114 350.1.13.10 4.2.7.2.686 [id number] [facility] 2021-10-09 13:40:00 2021-10-10 14:24:00 Outpatient X MARINO WILLS [facility] MAINTENANCE SERVICES DISPATCHER [id number] [facility] 2021-10-09 13:40:00 2021-10-10 14:24:00 [facility] [id number] [facility] 2021-10-09 13:40:00 2021-10-10 14:24:00 Emergency AuAlma Rosa roth [facility] 1.840.114 350.1.13.10 4.2.7.2.686 [id number] [facility] 2021-10-10 00:00:00 2021-10-10 00:00:00 Telephone Catalina Cm [facility] 1.0.114 350.1.13.10 4.2.7.2.686 [id number] [facility] 2021-10-10 00:00:00 2021-10-10 00:00:00 Telephone [facility] 1.840.114 350.1.13.10 4.2.7.2.686 [id number] [facility] 2021-07-15 00:00:00 2021-07-15 00:00:00 Orders Only Doctor Unassigned, [place] [facility] 1.2.840.114 350.1.13.10 4.2.7.2.686 [id number] [facility] 2021-07-02 00:00:00 2021-07-02 00:00:00 Telephone Pcp, [facility] Not Have [facility] [address] [facility] 1.2.840.114 350.1.13.10 4.2.7.2.686 [id number] [facility] 2020-02-22 12:29:09 2020-02-22 15:00:00 Emergency Curt Kemp [facility] 1.2.840.114 350.1.13.10 4.2.7.2.686 [id number] 2020-02-22 12:29:09 2020-02-22 15:00:00 Emergency Curt Kemp [facility] 1.2.840.114 350.1.13.10 4.2.7.2.686 [id number] [facility] 2020-02-22 12:29:09 2020-02-22 12:29:09 Emergency X Curt KEMP [facility] ERT [id number] [facility] 2020-01-30 08:36:00 2020-01-30 08:36:00 Outpatient Lezak_Kayla [facility] [id number] [facility] 2020-01-28 01:01:00 2020-01-28 01:01:00 Outpatient Lezak_Kayla [facility] [id number] [facility] 2019-12-02 11:44:00 2019-12-02 11:44:00 Outpatient Lezak_Kayla [facility] [id number] Karrie [facility] h Program 2019-01-07 10:23:00 2019-01-07 12:27:00 Outpatient E ZEV PAEZ [facility] [id number] [facility] 2018-12-04 10:20:00 2018-12-04 15:57:00 Outpatient E KEYUR PUENTE [facility] [id number] [facility] 2018-11-11 04:05:00 2018-11-11 06:00:00 Outpatient E MARKELL HUNT [facility] [id number] [facility] 2018-10-12 06:24:00 2018-10-12 08:08:00 Outpatient E PAULINE REDDY [facility] [id number] [facility] 2018-09-30 13:45:00 2018-09-30 14:12:00 Outpatient E MELANIE LAI [facility] [id number] [facility] 2018-09-04 17:32:00 2018-09-04 18:30:00 Outpatient E MELANIE LAI [facility] [id number] [facility] 2018-08-19 08:43:00 2018-08-19 10:15:00 Outpatient E HANY WILL [facility] [id number] [facility] 2018-08-08 13:34:00 2018-08-08 16:43:00 Outpatient E DARÍO CHAMBERS [facility] [id number] [facility] Results Test Description Test Time Test Comments Results Result Co mments [facility] 16:29:12* Test Item Value Reference Range Interpretation Comme nts Anti-Neely (test code = 5544370521) Negative Negative PARTH (test code = PARTH) Positive - Antibod y detected.Negative - No antibody detected. Lab Interpretation (test code = 95446-1) Normal [facility]-Ozsveomidmehtgyva2155-45-35 16:29:12* Test Item Value Reference Range Interpretation Comme nts Anti-Ribonucleoprotein (test code = 8369948998) Negative Negative PARTH (test code = PARTH) Positive - Antibod y detected.Negative - No antibody detected. Lab Interpretation (test code = 05250-6) Normal [facility]-Centromere [id number] 16:29:12* Test Item Value Reference Range Interpretation Comme nts ANTI-CENTR (test code = 9170474653) Negative Negative PARTH (test code = PARTH) Positive - Antibod y detected.Negative - No antibody detected. Lab Interpretation (test code = 70075-6) Normal [facility]-SCL-[id number] 16:29:12* Test Item Value Reference Range Interpretation Comme nts ANTI-SCL70 (test code = 2212143706) Negative Negative PARTH (test code = PARTH) Positive - Antibod y detected.Negative - No antibody detected. Lab Interpretation (test code = 11221-3) Normal [facility]-SSA(RO)2023-11-04 16:29:12* Test Item Value Reference Range Interpretation Comme nts ANTI-SSA(RO) (test code = 9442949860) Positive Negative A PARTH (test code = PARTH) Positive - Antibod y detected.Negative - No antibody detected. Lab Interpretation (test code = 59813-2) Abnormal [facility]-SSB(LA)2023-11-04 16:29:12* Test Item Value Reference Range Interpretation Comme nts Anti-SSB(LA) (test code = 6677718998) Negative Negative PARTH (test code = PARTH) Positive - Antibod y detected.Negative - No antibody detected. Lab Interpretation (test code = 38841-6) [facility] Srivxiakxl5567-04-60 16:28:24* Test Item Value Reference Range Interpretation Comme nts C3 (test code = 5080222993) 110 mg/dL 86-184 Lab Interpretation (test cod e = 41666-5) Normal [facility] Cjkedeygxs6890-42-38 16:28:24* Test Item Value Reference Range Interpretation Comme nts C4 (test code = 4503881525) 19 mg/dL 20-59 L Lab Interpretation (test cod e = 59594-2) Abnormal [facility]ulating Bccnask7382-03-15 01:19:27 * Test Item Value Reference Range Interpretation Comme nts TSH (test code = 9520068468) 0.95 0.45-4.70 Biotin has been reported to cause a negative bias, interpret results relative to patient's use of biotin. Lab Interpretation (test code = 89278-2) Normal [facility], [id number] 00:57:43* Test Item Value Reference Range Interpretation Comme nts VIT D 25OH (test code = 52544-8) 37 ng/mL 25-80 PARTH (test code = PARTH) Deficiency: <20 ng/mLInsufficiency : 20-24 ng/mLOptimal: 25-80 ng/mL Lab Interpretation (test code = 90334-4) Normal [facility] C[facility] 2 [id number] 22:34:22XR CERVICAL SPINE 2 VW HISTORY: Female 43 years neck pain COMPARISON: None FINDINGS: The vertebral bodies are normal in height and in normal alignment. Theatlantodental space is normal. The prevertebral soft tissues areunremarkable. Diffuse mild degenerative changes, most pronounced at the C6-C7 level. Noacute osseous abnormality.[facility] HospitalBASI [facility]OLIC PANEL (NA, K, CL, CO2, GLUCOSE, BUN, CREATININE, CA)2022-11-04 15:48:28* Test Item Value Reference Range Interpretation Comme nts NA (test code = 2419100211) 137 mmol/L 135-145 K (test code = 1547779027) 4.1 mmol/L 3.5-5.0 CL (test code = 5231867913) 106 mmol/L 98-108 CO2 TOTAL (test code = 6607468991) 23 mmol/L 23-31 AGAP (test code = 0622375314) 8 2-16 BUN (test code = 5022776022) 12 mg/dL 7-23 GLUCOSE (test code = 1443899134) 109 mg/dL 70-110 CREATININE (test code = 0082888293) 0.44 mg/dL 0.50-1.04 L CALCIUM (test code = 1148535391) 8.8 mg/dL 8.6-10.6 eGFR (test code = 0291332222) 156.8 mL/min/1.73m2 PARTH (test code = PARTH) [...] imaging tests). Lab Interpretation (test code = 86832-4) Abnormal [facility] WITH [id number] 15:38:28* Test Item Value Reference Range Interpretation Comme nts WBC (test code = 6690-2) 8.04 See_Comment [Automated [employer]] The system which generated this result transmitted reference range: 4.30 - 11.10 10*3/?L. The reference range was not used to interpret this result as normal/abnormal. RBC (test code = 789-8) 4.38 See_Comment [Topple Track] The system which generated this result transmitted reference range: 3.93 - 5.25 10*6/?L. The reference range was not used to interpret this result as normal/abnormal. HGB (test code = 718-7) 13.5 g/dL 11.6-15.0 HCT (test code = 4544-3) 39.6 % 35.7-45.2 MCV (test code = 787-2) 90.4 fL 80.6-95.5 MCH (test code = 785-6) 30.8 pg 25.9-32.8 MCHC (test code = 786-4) 34.1 g/dL 31.6-35.1 RDW-SD (test code = 45532-6) 42.8 fL 39.0-49.9 RDW-CV (test code = 788-0) 13.0 % 12.0-15.5 PLT (test code = 777-3) 288 See_Comment [Automated messa ge] The system which generated this result transmitted reference range: 166 - 358 10*3/?L. The reference range was not used to interpret this result as normal/abnormal. MPV (test code = 66262-2) 10.2 fL 9.5-12.9 NRBC/100 WBC (test code = 2815488920) 0.0 See_Comment [Automated me ssage] The system which generated this result transmitted reference range: 0.0 - 10.0 /100 WBCs. The reference range was not used to interpret this result as normal/abnormal. NRBC x10^3 (test code = 6022031309) See_Comment [Automated me ssage] The system which generated this result transmitted reference range: 10*3/?L. The reference range was not used to interpret this result as normal/abnormal. GRAN MAT (NEUT) % (test code = 770-8) 61.9 % IMM GRAN % (test code = 4884265299) 0.20 % LYMPH % (test code = 736-9) 29.1 % MONO % (test code = 5905-5) 7.1 % EOS % (test code = 713-8) 1.2 % BASO % (test code = 706-2) 0.5 % GRAN MAT x10^3(ANC) (test code = 3201285993) 4.97 10*3/uL 1.88-7.09 IMM GRAN x10^3 (test code = 9551070603) 0.00-0.06 LYMPH x10^3 (test code = 731-0) 2.34 10*3/uL 1.32-3.29 MONO x10^3 (test code = 742-7) 0.57 10*3/uL 0.33-0.92 EOS x10^3 (test code = 711-2) 0.10 10*3/uL 0.03-0.39 BASO x10^3 (test code = 704-7) 0.04 10*3/uL 0.01-0.07 [facility], THIRD [id number] 06:23:27* Test Item Value Reference Range Interpretation Comme [facility] TSH, THIRD GENERATION (test code = 2821) 1.220 UIU/ML 0.400-4.100 VITAMIN [id number] 06:23:27* Test Item Value Reference Range Interpretation Comme [facility] VITAMIN B-12 (test code = 2840) 312 PG/ML 200-950 VITAMIN D, 25 [id number] 04:36:56* Test Item Value Reference Range Interpretation Comme [facility] VITAMIN D, 25 OH (test code = 4958) 26 NG/ML SEE BELOW L NOTE: 25-HYDR OXYVITAMIN D ASSAY INCLUDES 25-HYDROXYVITAMIN D2 AND D3. METHODOLOGY IS CHEMILUMINESCENT IMMUNOASSAY. INTERPRETIVE RANGES PEDIATRIC (<17 YEARS) . . . . . . . . . . . NG/ML 20-100ADULT: INSUFFICIENT . . . . . . . . . . . . . . NG/ML <20 SUBOPTIMAL . . . . . . . . . . . . . . . NG/ML 20-29 OPTIMAL . . . . . . . . . . . . . . . . . NG/ML 30-100 HEMOGLOBIN [id number] 03:56:42* Test Item Value Reference Range Interpretation Comme [facility] HEMOGLOBIN A1c (test code = 02286) 5.8 % 4.2-5.6 H UNLESS OTHERWISE INDICATED, ALL TESTING PERFORMED [facility] [address] [place] [address] [employer]IFTING SUPERVISOR: NAILA OATES M.D. CLIA NUMBER [id number] [place]. [id number] COMPREHENSIVE METABOLIC [id number] 03:29:09* Test Item Value Reference Range Interpretation Comme [facility] GLUCOSE (test code = 2217) 86 MG/DL 70-99 BUN (test code = 2208) 16 MG/DL 6-20 CREATININE (test code = 2214) 0.61 MG/DL 0.60-1.30 eGFR (2020 CKD-EPI) (test code = 12552) 115 ML/MIN/1.73 >60 CALC BUN/CREAT (test code = 2234) 26 RATIO 6-28 SODIUM (test code = 2230) 138 MEQ/L 133-146 POTASSIUM (test code = 2227) 4.1 MEQ/L 3.5-5.4 CHLORIDE (test code = 2214) 99 MEQ/L 95-107 CARBON DIOXIDE (test code = 2205) 23 MEQ/L 19-31 CALCIUM (test code = 2208) 9.6 MG/DL 8.5-10.5 PROTEIN, TOTAL (test code = 2228) 8.0 G/DL 6.1-8.3 ALBUMIN (test code = 2200) 5.1 G/DL 3.5-5.2 CALC GLOBULIN (test code = 2239) 2.9 G/DL 1.9-3.7 CALC A/G RATIO (test code = 2233) 1.8 RATIO 1.0-2.6 BILIRUBIN, TOTAL (test code = 2206) 1.2 MG/DL See_Comment [Automated me ssage] The system which generated this result transmitted reference range: <=1.2. The reference range was not used to interpret this result as normal/abnormal. ALKALINE PHOSPHATASE (test code = 2203) 67 U/L 40-113 AST (test code = 2217) 22 U/L 9-40 ALT (test code = 2218) 30 U/L 5-40 CBC W/AUTO DIFF WITH [id number] 02:24:23* Test Item Value Reference Range Interpretation Comme nts WBC (test code = 1001) 7.7 K/UL 3.5-11.0 RBC (test code = 1002) 4.65 M/UL 3.80-5.40 HEMOGLOBIN (test code = 1003) 14.3 G/DL 11.5-15.5 HEMATOCRIT (test code = 1004) 42.6 % 34.0-45.0 MCV (test code = 1005) 91.6 fL 80.0-99.0 MCH (test code = 1006) 30.8 PG 25.0-33.0 MCHC (test code = 1007) 33.6 G/DL 31.0-36.0 RDW (test code = 1038) 13.1 % 11.5-15.0 NEUTROPHILS (test code = 1008) 56.7 % LYMPHOCYTES (test code = 1010) 35.1 % MONOCYTES (test code = 1011) 6.6 % EOSINOPHILS (test code = 1012) 0.9 % BASOPHILS (test code = 1013) 0.4 % IMMATURE GRANULOCYTES (test code = 1036) 0.3 % NUCLEATED RBCS (test code = 1065) 0.0 /100 WBC'S See_Comment [Automated messa ge] The system which generated this result transmitted reference range: 0.0. The reference range was not used to interpret this result as normal/abnormal. PLATELET COUNT (test code = 1015) 339 K/UL 130-400 ABSOLUTE NEUTROPHILS (test code = 1066) 4.39 K/UL 1.50-7.50 ABSOLUTE LYMPHOCYTES (test code = 1067) 2.72 K/UL 1.00-4.00 ABSOLUTE MONOCYTES (test code = 1068) 0.51 K/UL 0.20-1.00 ABSOLUTE EOSINOPHILS (test code = 1040) 0.07 K/UL 0.00-0.50 ABSOLUTE BASOPHILS (test code = 1069) 0.03 K/UL 0.00-0.20 ABS IMMATURE GRANULOCYTES (test code = 1020) 0.02 K/UL 0.00-0.10 ABS NUCLEATED RBCS (test code = 59665) 0.00 K/UL 0.00-0.11 CBC WITH [id number] 10:42:11* Test Item Value Reference Range Interpretation Comme nts WBC (test code = 6690-2) See_Comment [Automated [employer]] The system which generated this result transmitted reference range: 4.30 - 11.10 10*3/?L. The reference range was not used to interpret this result as normal/abnormal. RBC (test code = 789-8) See_Comment L [Automated messa ge] The system which generated this result transmitted reference range: 3.93 - 5.25 10*6/?L. The reference range was not used to interpret this result as normal/abnormal. HGB (test code = 718-7) 11.4 g/dL 11.6-15 L HCT (test code = 4544-3) 34.2 % 35.7-45.2 L MCV (test code = 787-2) 92.7 fL 80.6-95.5 MCH (test code = 785-6) 30.9 pg 25.9-32.8 MCHC (test code = 786-4) 33.3 g/dL 31.6-35.1 RDW-SD (test code = 94627-5) 45.3 fL 39-49.9 RDW-CV (test code = 788-0) 13.3 % 12-15.5 PLT (test code = 777-3) See_Comment [Automated [employer]] The system which generated this result transmitted reference range: 166 - 358 10*3/?L. The reference range was not used to interpret this result as normal/abnormal. MPV (test code = 78747-9) 10.5 fL 9.5-12.9 NRBC/100 WBC (test code = 2897786265) See_Comment [Automated [employer] ssage] The system which generated this result transmitted reference range: 0.0 - 10.0 /100 WBCs. The reference range was not used to interpret this result as normal/abnormal. NRBC x10^3 (test code = 1651782190) See_Comment [Automated [employer]] The system which generated this result transmitted reference range: 10*3/?L. The reference range was not used to interpret this result as normal/abnormal. GRAN MAT (NEUT) % (test code = 770-8) 37.8 % IMM GRAN % (test code = 7332824192) 0.50 % LYMPH % (test code = 736-9) 51.2 % MONO % (test code = 5905-5) 8.1 % EOS % (test code = 713-8) 1.9 % BASO % (test code = 706-2) 0.5 % GRAN MAT x10^3(ANC) (test code = 1662803171) 2.43 10*3/uL 1.88-7.09 IMM GRAN x10^3 (test code = 8545675399) 0.03 10*3/uL 0-0.06 LYMPH x10^3 (test code = 731-0) 3.29 10*3/uL 1.32-3.29 MONO x10^3 (test code = 742-7) 0.52 10*3/uL 0.33-0.92 EOS x10^3 (test code = 711-2) 0.12 10*3/uL 0.03-0.39 BASO x10^3 (test code = 704-7) 0.03 10*3/uL 0.01-0.07 Lab Interpretation (test code = 16188-7) Abnormal [facility] WITH [id number] 10:58:56* Test Item Value Reference Range Interpretation Comme nts WBC (test code = 6690-2) See_Comment H [Automated messa ge] The system which generated this result transmitted reference range: 4.30 - 11.10 10*3/?L. The reference range was not used to interpret this result as normal/abnormal. RBC (test code = 789-8) See_Comment L [Automated messa ge] The system which generated this result transmitted reference range: 3.93 - 5.25 10*6/?L. The reference range was not used to interpret this result as normal/abnormal. HGB (test code = 718-7) 10.8 g/dL 11.6-15 L HCT (test code = 4544-3) 31.8 % 35.7-45.2 L MCV (test code = 787-2) 93.5 fL 80.6-95.5 MCH (test code = 785-6) 31.8 pg 25.9-32.8 MCHC (test code = 786-4) 34.0 g/dL 31.6-35.1 RDW-SD (test code = 12348-6) 46.4 fL 39-49.9 RDW-CV (test code = 788-0) 13.7 % 12-15.5 PLT (test code = 777-3) See_Comment [Automated messa ge] The system which generated this result transmitted reference range: 166 - 358 10*3/?L. The reference range was not used to interpret this result as normal/abnormal. MPV (test code = 61366-0) 11.5 fL 9.5-12.9 NRBC/100 WBC (test code = [id number]) See_Comment [Automated me ssage] The system which generated this result transmitted reference range: 0.0 - 10.0 /100 WBCs. The reference range was not used to interpret this result as normal/abnormal. NRBC x10^3 (test code = [id number]) See_Comment [Automated messa ge] The system which generated this result transmitted reference range: 10*3/?L. The reference range was not used to interpret this result as normal/abnormal. GRAN MAT (NEUT) % (test code = 770-8) 69.6 % IMM GRAN % (test code = [id number]) 0.20 % LYMPH % (test code = 736-9) 22.6 % MONO % (test code = 5905-5) 7.3 % EOS % (test code = 713-8) 0.1 % BASO % (test code = 706-2) 0.2 % GRAN MAT x10^3(ANC) (test code = [id number]) 8.81 10*3/uL 1.88-7.09 H IMM GRAN x10^3 (test code = 1264229460) 0.03 10*3/uL 0-0.06 LYMPH x10^3 (test code = 731-0) 2.86 10*3/uL 1.32-3.29 MONO x10^3 (test code = 742-7) 0.93 10*3/uL 0.33-0.92 H EOS x10^3 (test code = 711-2) 0.03-0.39 L BASO x10^3 (test code = 704-7) 0.01-0.07 Lab Interpretation (test code = 71539-4) Abnormal [facility]. METABOLIC PANEL ([id number])2022-05-21 01:01:28* Test Item Value Reference Range Interpretation Comme nts NA (test code = 4381537314) 139 mmol/L 135-145 K (test code = 1763707002) 3.6 mmol/L 3.5-5 CL (test code = 2277643281) 106 mmol/L 98-108 CO2 TOTAL (test code = 9097883744) 24 mmol/L 23-31 AGAP (test code = 0567930578) 2-16 BUN (test code = 8584271994) 10 mg/dL 7-23 GLUCOSE (test code = 7699951317) 96 mg/dL 70-110 CREATININE (test code = 5910370817) 0.44 mg/dL 0.5-1.04 L TOTAL BILI (test code = 4095792318) 1.0 mg/dL 0.1-1.1 CALCIUM (test code = 3073775735) 9.0 mg/dL 8.6-10.6 T PROTEIN (test code = 8528737126) 7.8 g/dL 6.3-8.2 ALBUMIN (test code = 3686007674) 4.6 g/dL 3.5-5 ALK PHOS (test code = 0314966346) 81 U/L 34-122 ALTv (test code = 1742-6) 11 U/L 5-35 AST(SGOT) (test code = 7132672101) 17 U/L 13-40 eGFR (test code = 5643752842) mL/min/1.73m2 PARTH (test code = PARTH) Association [...] imaging tests). Lab Interpretation (test code = 37403-2) Abnormal [facility] METABOLIC PANEL (10180)2022-05-21 01:01:28* Test Item Value Reference Range Interpretation Comme nts NA (test code = 6428205941) 139 mmol/L 135-145 K (test code = 2706231166) 3.6 mmol/L 3.5-5 CL (test code = 0407662250) 106 mmol/L 98-108 CO2 TOTAL (test code = 3831026476) 24 mmol/L 23-31 AGAP (test code = 7629773057) 2-16 BUN (test code = 2398470357) 10 mg/dL 7-23 GLUCOSE (test code = 7002080137) 96 mg/dL 70-110 CREATININE (test code = 4877604757) 0.44 mg/dL 0.5-1.04 L TOTAL BILI (test code = 0778740145) 1.0 mg/dL 0.1-1.1 CALCIUM (test code = 4046664279) 9.0 mg/dL 8.6-10.6 T PROTEIN (test code = 5089864262) 7.8 g/dL 6.3-8.2 ALBUMIN (test code = 5956010599) 4.6 g/dL 3.5-5 ALK PHOS (test code = 1312746977) 81 U/L 34-122 ALTv (test code = 1742-6) 11 U/L 5-35 AST(SGOT) (test code = 8317161664) 17 U/L 13-40 eGFR (test code = 2352698573) mL/min/1.73m2 PARTH (test code = PARTH) Association [...] imaging tests). Lab Interpretation (test code = 95359-5) Abnormal [facility] WITH [id number] 00:51:27* Test Item Value Reference Range Interpretation Comme nts WBC (test code = 6690-2) See_Comment H [Automated [employer]] The system which generated this result transmitted reference range: 4.30 - 11.10 10*3/?L. The reference range was not used to interpret this result as normal/abnormal. RBC (test code = 789-8) See_Comment [Automated [employer]] The system which generated this result transmitted reference range: 3.93 - 5.25 10*6/?L. The reference range was not used to interpret this result as normal/abnormal. HGB (test code = 718-7) 14.3 g/dL 11.6-15 HCT (test code = 4544-3) 42.9 % 35.7-45.2 MCV (test code = 787-2) 94.1 fL 80.6-95.5 MCH (test code = 785-6) 31.4 pg 25.9-32.8 MCHC (test code = 786-4) 33.3 g/dL 31.6-35.1 RDW-SD (test code = 79635-4) 45.4 fL 39-49.9 RDW-CV (test code = 788-0) 13.3 % 12-15.5 PLT (test code = 777-3) See_Comment [Automated [employer]] The system which generated this result transmitted reference range: 166 - 358 10*3/?L. The reference range was not used to interpret this result as normal/abnormal. MPV (test code = 07697-7) 10.5 fL 9.5-12.9 NRBC/100 WBC (test code = 8227558267) See_Comment [Automated me ssage] The system which generated this result transmitted reference range: 0.0 - 10.0 /100 WBCs. The reference range was not used to interpret this result as normal/abnormal. NRBC x10^3 (test code = 8407353091) See_Comment [Automated messa ge] The system which generated this result transmitted reference range: 10*3/?L. The reference range was not used to interpret this result as normal/abnormal. GRAN MAT (NEUT) % (test code = 770-8) 67.4 % IMM GRAN % (test code = 4993765541) 0.30 % LYMPH % (test code = 736-9) 24.5 % MONO % (test code = 5905-5) 7.2 % EOS % (test code = 713-8) 0.3 % BASO % (test code = 706-2) 0.3 % GRAN MAT x10^3(ANC) (test code = 4195043019) 8.19 10*3/uL 1.88-7.09 H IMM GRAN x10^3 (test code = 5115980191) 0.04 10*3/uL 0-0.06 LYMPH x10^3 (test code = 731-0) 2.98 10*3/uL 1.32-3.29 MONO x10^3 (test code = 742-7) 0.88 10*3/uL 0.33-0.92 EOS x10^3 (test code = 711-2) 0.04 10*3/uL 0.03-0.39 BASO x10^3 (test code = 704-7) 0.04 10*3/uL 0.01-0.07 Lab Interpretation (test code = 37019-4) Abnormal [facility] WITH [id number] 00:51:27* Test Item Value Reference Range Interpretation Comme nts WBC (test code = 6690-2) See_Comment H [Automated messa ge] The system which generated this result transmitted reference range: 4.30 - 11.10 10*3/?L. The reference range was not used to interpret this result as normal/abnormal. RBC (test code = 789-8) See_Comment [Automated [employer]] The system which generated this result transmitted reference range: 3.93 - 5.25 10*6/?L. The reference range was not used to interpret this result as normal/abnormal. HGB (test code = 718-7) 14.3 g/dL 11.6-15 HCT (test code = 4544-3) 42.9 % 35.7-45.2 MCV (test code = 787-2) 94.1 fL 80.6-95.5 MCH (test code = 785-6) 31.4 pg 25.9-32.8 MCHC (test code = 786-4) 33.3 g/dL 31.6-35.1 RDW-SD (test code = 02783-5) 45.4 fL 39-49.9 RDW-CV (test code = 788-0) 13.3 % 12-15.5 PLT (test code = 777-3) See_Comment [Automated [employer]] The system which generated this result transmitted reference range: 166 - 358 10*3/?L. The reference range was not used to interpret this result as normal/abnormal. MPV (test code = 39484-2) 10.5 fL 9.5-12.9 NRBC/100 WBC (test code = 1917248122) See_Comment [Automated [employer] ssage] The system which generated this result transmitted reference range: 0.0 - 10.0 /100 WBCs. The reference range was not used to interpret this result as normal/abnormal. NRBC x10^3 (test code = 0440413542) See_Comment [Automated [employer]] The system which generated this result transmitted reference range: 10*3/?L. The reference range was not used to interpret this result as normal/abnormal. GRAN MAT (NEUT) % (test code = 770-8) 67.4 % IMM GRAN % (test code = 4704311010) 0.30 % LYMPH % (test code = 736-9) 24.5 % MONO % (test code = 5905-5) 7.2 % EOS % (test code = 713-8) 0.3 % BASO % (test code = 706-2) 0.3 % GRAN MAT x10^3(ANC) (test code = 0047555497) 8.19 10*3/uL 1.88-7.09 H IMM GRAN x10^3 (test code = 0109705700) 0.04 10*3/uL 0-0.06 LYMPH x10^3 (test code = 731-0) 2.98 10*3/uL 1.32-3.29 MONO x10^3 (test code = 742-7) 0.88 10*3/uL 0.33-0.92 EOS x10^3 (test code = 711-2) 0.04 10*3/uL 0.03-0.39 BASO x10^3 (test code = 704-7) 0.04 10*3/uL 0.01-0.07 Lab Interpretation (test code = 63943-2) Abnormal [facility] TEST, THINPREP, [id number] 00:00:00 * Test Item Value Reference Range Interpretation Comme nts SOURCE: (test code = 8001) Cervical/Endocervical SLIDES: (test code = 8011) 1 LMP: (test code = 8021) 03/26/2019 SPECIMEN ADEQUACY: (test code = 28788) (NOTE) INTERPRETATION: (test code = 76405) NILM/NO EPITH. ABNORMALITY;SEE BELOW OTHER COMMENTS: (test code = 8081) (NOTE) DESK DIRECTOR: (test code = 8101) MARI Nair(ASCP) QC TECHNOLOGIST: (test code = 8111) Gabrielle YunSCT(ASCP)CT(IA C) LOCATION: (test code = 71604) (NOTE) CPT: (test code = 8140) (NOTE) PAP TEST, THINPREP, [id number] 00:00:00* Test Item Value Reference Range Interpretation Comme nts SOURCE: (test code = 8001) Cervical/Endocervical SLIDES: (test code = 8011) 1 LMP: (test code = 8021) 03/26/2019 SPECIMEN ADEQUACY: (test code = 17263) (NOTE) INTERPRETATION: (test code = 27239) NILM/NO EPITH. ABNORMALITY;SEE BELOW OTHER COMMENTS: (test code = 8081) (NOTE) DESK DIRECTOR: (test code = 8101) Janet Grajeda,CT(ASCP) QC TECHNOLOGIST: (test code = 8111) Gabrielle Yun,SCT(ASCP)CT(IA C) LOCATION: (test code = 94274) (NOTE) CPT: (test code = 8140) (NOTE) CT/NG, TMA, THINPREP [ADDED]2019-05-04 00:00:00* Test Item Value Reference Range Interpretation Comme nts GONORRHEA, TMA (test code = 20199) NEGATIVE CHLAMYDIA, TMA (test code = 33494) NEGATIVE CT/NG, TMA, THINPREP [ADDED]2019-05-04 00:00:00* Test Item Value Reference Range Interpretation Comme nts GONORRHEA, TMA (test code = 59593) NEGATIVE CHLAMYDIA, TMA (test code = 75193) NEGATIVE VAGINAL PATHOGENS DNA [id number] 00:00:00* Test Item Value Reference Range Interpretation Comme nts PRASANNA SPECIES (test code = 41790) NEGATIVE G. VAGINALIS (test code = 71795) NEGATIVE T. VAGINALIS (test code = 79066) POSITIVE CBC W/AUTO [id number] 00:00:00* Test Item Value Reference Range Interpretation Comme nts WBC (test code = 1001) 11.9 K/UL [...] code = 1015) 362 K/UL CBC W/AUTO [id number] 00:00:00* Test Item Value Reference Range Interpretation Comme nts WBC (test code = 1001) 11.9 K/UL [...] code = 1015) 362 K/UL CBC W/AUTO [id number] 00:00:00* Test Item Value Reference Range Interpretation Comme nts WBC (test code = 1001) 11.9 K/UL [...] = 1015) 362 K/UL VAGINAL PATHOGENS DNA [id number] 00:00:00* Test Item Value Reference Range Interpretation Comme nts PRASANNA SPECIES (test code = 17366) NEGATIVE G. VAGINALIS (test code = 32539) NEGATIVE T. VAGINALIS (test code = 52532) POSITIVE HPV HIGH RISK WITH GENOTYPE, [id number] 00:00:00* Test Item Value Reference Range Interpretation Comme nts HPV HIGH RISK INTERP (test c ode = 46039) NEGATIVE HPV 16 (test code = 52504) NEGATIVE HPV 18 (test code = 41588) NEGATIVE HPV, HR, OTHER GENOTYPES (te st code = 68526) NEGATIVE LIPID [id number] 00:00:00* Test Item Value Reference Range Interpretation Comme nts CHOLESTEROL (test code = 2210) 221 MG/DL TRIGLYCERIDES (test code = 2232) 106 MG/DL HDL CHOLESTEROL (test code = 2220) 40 MG/DL CALC LDL CHOL (test code = 2237) 160 MG/DL RISK RATIO LDL/HDL (test cod e = 2238) 4.00 RATIO HPV HIGH RISK WITH GENOTYPE, [id number] 00:00:00* Test Item Value Reference Range Interpretation Comme nts HPV HIGH RISK INTERP (test c ode = 43011) NEGATIVE HPV 16 (test code = 31459) NEGATIVE HPV 18 (test code = 46856) NEGATIVE HPV, HR, OTHER GENOTYPES (te st code = 43964) NEGATIVE LIPID [id number] 00:00:00* Test Item Value Reference Range Interpretation Comme nts CHOLESTEROL (test code = 2210) 221 MG/DL TRIGLYCERIDES (test code = 2232) 106 MG/DL HDL CHOLESTEROL (test code = 2220) 40 MG/DL CALC LDL CHOL (test code = 2237) 160 MG/DL RISK RATIO LDL/HDL (test cod e = 2238) 4.00 RATIO HEMOGLOBIN [id number] 00:00:00* Test Item Value Reference Range Interpretation Comme nts HEMOGLOBIN A1c (test code = 04587) 5.9 % HEMOGLOBIN [id number] 00:00:00* Test Item Value Reference Range Interpretation Comme nts HEMOGLOBIN A1c (test code = 83245) 5.9 % HEMOGLOBIN [id number] 00:00:00* Test Item Value Reference Range Interpretation Comme nts HEMOGLOBIN A1c (test code = 42706) 5.9 % COMPREHENSIVE METABOLIC [id number] 00:00:00* Test Item Value Reference Range Interpretation Comme nts GLUCOSE (test code = 2217) 100 MG/DL BUN (test code = 2208) 10 MG/DL CREATININE (test code = 2214) 0.56 MG/DL eGFR AMER. (test cod e = 33489) 137 ML/MIN/1.73 eGFR NON- AMER. (test code = 25386) 118 ML/MIN/1.73 CALC BUN/CREAT (test code = 2235) 18 RATIO SODIUM (test code = 2231) 140 MEQ/L POTASSIUM (test code = 2228) 3.7 MEQ/L CHLORIDE (test code = 2215) 103 MEQ/L CARBON DIOXIDE (test code = 2206) 22 MEQ/L CALCIUM (test code = 2209) 9.1 MG/DL PROTEIN, TOTAL (test code = 2229) 7.5 G/DL ALBUMIN (test code = 2201) 4.4 G/DL CALC GLOBULIN (test code = 2240) 3.1 G/DL CALC A/G RATIO (test code = 2234) 1.4 RATIO BILIRUBIN, TOTAL (test code = 2207) 0.5 MG/DL ALKALINE PHOSPHATASE (test code = 2204) 79 U/L AST (test code = 2218) 18 U/L ALT (test code = 2219) 26 U/L COMPREHENSIVE METABOLIC [id number] 00:00:00* Test Item Value Reference Range Interpretation Comme nts GLUCOSE (test code = 2217) 100 MG/DL BUN (test code = 2208) 10 MG/DL CREATININE (test code = 2214) 0.56 MG/DL eGFR AMER. (test cod e = 46062) 137 ML/MIN/1.73 eGFR NON- AMER. (test code = 70607) 118 ML/MIN/1.73 CALC BUN/CREAT (test code = 2235) 18 RATIO SODIUM (test code = 2231) 140 MEQ/L POTASSIUM (test code = 2228) 3.7 MEQ/L CHLORIDE (test code = 2215) 103 MEQ/L CARBON DIOXIDE (test code = 2206) 22 MEQ/L CALCIUM (test code = 2209) 9.1 MG/DL PROTEIN, TOTAL (test code = 2229) 7.5 G/DL ALBUMIN (test code = 2201) 4.4 G/DL CALC GLOBULIN (test code = 2240) 3.1 G/DL CALC A/G RATIO (test code = 2234) 1.4 RATIO BILIRUBIN, TOTAL (test code = 2207) 0.5 MG/DL ALKALINE PHOSPHATASE (test code = 2204) 79 U/L AST (test code = 2218) 18 U/L ALT (test code = 2219) 26 U/L [id number] 00:00:00* Test Item Value Reference Range Interpretation Comme nts TSH, THIRD GENERATION (test code = 2821) 1.260 UIU/ML [id number] 00:00:00* Test Item Value Reference Range Interpretation Noemi gilmore TSH, THIRD GENERATION (test code = 2821) 1.260 UIU/ML [id number] 00:00:00* Test Item Value Reference Range Interpretation Noemi gilmore TSH, THIRD GENERATION (test code = 2821) 1.260 UIU/ML U/S GALLBLADDER *OW*2018-12-04 15:44:54CLINICAL HISTORY: Upper abdominal [...] in appearance. The pancreas is within normal limits.The right kidneydemonstrates normal echogenicity and measures 10.3 cm in length. The aortademonstrates normal caliber. The IVC appears to be within normal limits.IMPRESSION:1. No abnormalities are identified .BRAIN NATRIURETIC PROTEIN OW2018-12-04 12:28:00* Test Item Value Reference Range Interpretation Noemi gilmore BNP (test code = OBNP) <15 pg/mL 0-50 CT PE PROTOCOL *OW*2018-12-04 12:10:41CLINICAL HISTORY: Chest pain.LOCATION: D4.FINDINGS: Following the administration of 95 mL Sleejbpvy549 intravenouscontrast, multislice axial images are obtained through [...] of iterative reconstruction technique.TROPONIN I i-STAT OW2018-12-04 11:38:00* Test Item Value Reference Range Interpretation Comme nts TROPONIN I (test code = A84) 0.000 ng/mL 0.000-0.045 URINE OW2018-12-04 11:24:00* Test Item Value Reference Range Interpretation Comme nts PREG UR (test code = PGU) Negative NEGATIVE XR CHEST 2 VIEW *OW*2018-12-04 11:17:59CLINICAL HISTORY: Dyspnea, right-sided chest pain.LOCATION: D4.FINDINGS: Comparison is made with previous study dated October 12, 2018. A PAand lateral examination of the chest demonstrates the cardiomediastinalsilhouette to be within normal limits. There are no infiltrates or pleuraleffusions. Noskeletal or soft tissue abnormalities.IMPRESSION:1. No acute disease.CHEM8+ i-STAT OW2018-12-04 11:08:00* Test Item Value Reference Range Interpretation Comme nts SODIUM (test code = MENG) 141 mmol/L [...] % 38.0-51.0 CBC (INCLUDES AUTOMATED DIFFERENTIAL) *2018-12-04 11:05:00* Test Item Value Reference Range Interpretation Comme nts WBC (test code = WBC) 8.1 10\\S\\3/uL [...] 9.8 % 0.0-10.0 PROTHROMBIN TIME i-STAT OW2018-12-04 11:02:00* Test Item Value Reference Range Interpretation Comme nts PT (test code = PT1) 12.2 s 10.0-13.0 INR (test code = INR) 1.0 INRH (test code = INRH) SUGGESTED THERAPEUTIC RANGE FOR INR: 2.5 - 3.5 For Patients with Prosthetic Valves or Patients with recurrent Thromboembolic Events 2.0 - 3.[address] ABDOMEN AND PELVIS WITH CONTRAST *OW*2018-11-11 05:31:13CT abdomen and pelvis with contrastLocation Code: B83HQALJEYX HISTORY: [id number]: Lower abdominal teetee nCOMPARISON: NoneTechnique: Helical CT of the abdomen and [...] adnexal cyst. Likely multiple follicles areseen bilaterally, furtherevaluation with sonography could be performed asindicated.Mild bladder wall prominence, correlate with UA to exclude cystitisNo aggressive osseous lesions are seen. IMPRESSION: 1.A moderate volume ofstool seen throughout the colon compatible with clinicaldiagnosis of constipation 2.Note is made ofprominent bilateral adnexa left slightly more prominent thanthe right with a likely 1.3 cm left adnexal cyst. Likely multiple follicles areseen bilaterally, further evaluation with sonography could be performed asindicated3. Mild bladder wall prominence, correlate with UA to exclude cystitis4. Questionable irregular thickening of the cecum can be further evaluated withoutpatient colonoscopy.DRUGS OF ABUSE*OW* 2018-11-11 04:58:00* Test Item Value Reference Range Interpretation Comme nts DRUG SCRN (test code = HDOA) URINE DRUG SCREEN This is an unconfirmed screening result and should not be used for non-medical purposes PHENCYCLID (test code = GPCP) Negative NEGATIVE BENZODIAZE (test code = GBZO) Negative NEGATIVE COCAINE (test code = GCOC) Negative NEGATIVE AMPHETAMIN (test code = GAMP) Negative NEGATIVE THC (test code = GTHC) Positive NEGATIVE A OPIATES (test code = OSMANI) Negative NEGATIVE BARBITURAT (test code = GBAR) Negative NEGATIVE TCA (test code = GTCA) Negative NEGATIVE DOAH (test code = DOAH) URINE DRUG SCREEN CUT OFF VALUES Amphetamines 1000 ng/mL Barbituates 300 ng/mL Benzodiazepines 300 ng/mL Cocaine 300 ng/mL Opiates 300 ng/mL Phencyclidine 25 ng/mL THC 50 ng/mL Tricyclic Antidepressants 1000 ng/mL URINALYSIS W/O MICROSCOPICOW2018-11-11 04:55:00* Test Item Value Reference Range Interpretation Comme nts COLOR (test code = COLU) Yellow YELLOW CLARITY (test code = CLA) Clear CLEAR GLUCOSE UR (test code = UA GLUCOSE) Negative NEGATIVE BILI UR (test code = BILE) Negative NEGATIVE KETONES UR (test code = JOSE) Negative NEGATIVE SP GRAVITY (test code = SPGR) 1.020 1.005-1.030 PH UR (test code = PH) 7.5 4.5-8.0 PROTEIN UR (test code = PU) Negative NEGATIVE NITRITE UR (test code = NITRITE) Negative NEGATIVE UROBIL UR (test code = GUROQ) 0.2 E.U./dL UROBIL UR (test code = GUROQC) UROBILINOGEN REFERENCE RANGE 0.2 - 1.0 EU/dL BLOOD UR (test code = UA BLOOD) Negative NEGATIVE LEUK ES UR (test code = LEUK) 1+ NEGATIVE A URINE OW2018-11-11 04:54:00* Test Item Value Reference Range Interpretation Comme nts PREG UR (test code = PGU) Negative NEGATIVE CHEM8+ i-STAT OW2018-11-11 04:47:00* Test Item Value Reference Range Interpretation Comme nts SODIUM (test code = MENG) 142 mmol/L [...] MHCT) 38.0 % 38.0-51.0 LACTIC ACID OW2018-11-11 04:47:00* Test Item Value Reference Range Interpretation Comme nts LACTATE (test code = TACHO) 1.0 mmol/L 0.9-1.7 CBC (INCLUDES AUTOMATED DIFFERENTIAL) *2018-11-11 04:37:00* Test Item Value Reference Range Interpretation Comme nts WBC (test code = WBC) 8.7 10\\S\\3/uL [...] % 0.0-10.0 XR CHEST 2 VIEW *OW*2018-10-12 07:25:24F52VZQU: XR CHEST 2 VIEW *OW*HISTORY: [id number]: CoughCOMPARISON: 08/08/18INDINGS: The lungs are clear. No pleural effusion or pneumothorax. The cardiacsilhouette is within normal limits. No acute osseous abnormalities.IMPRESSION:No acute cardiopulmonary disease.CBC (INCLUDES AUTOMATED DIFFERENTIAL) *2018-10-12 06:46:00* Test Item Value Reference Range Interpretation Comme nts WBC (test code = WBC) 9.0 10\\S\\3/uL [...] = GMID%) 10.3 % 0.0-10.0 H THROAT [id number] 07:45:00* Test Item Value Reference Range Interpretation Comme nts Culture Observations (test code = COB1) NO BETA HEMOLYTIC STREPTOCOCCUS ISOLATED URINE OW2018-08-08 15:44:00* Test Item Value Reference Range Interpretation Comme nts PREG UR (test code = PGU) Negative NEGATIVE INFLUENZA A AND B OW2018-08-08 15:31:00* Test Item Value Reference Range Interpretation Comme nts INFLUENZ A (test code = INFA) NEGATIVE NEGATIVE INFLUENZ B (test code = INFB) NEGATIVE NEGATIVE URINALYSIS W/O MICROSCOPICOW2018-08-08 15:29:00* Test Item Value Reference Range Interpretation Comme nts COLOR (test code = COLU) Yellow YELLOW CLARITY (test code = CLA) Clear CLEAR GLUCOSE UR (test code = UA GLUCOSE) Negative NEGATIVE BILI UR (test code = BILE) Negative NEGATIVE KETONES UR (test code = JOSE) Trace NEGATIVE SP GRAVITY (test code = SPGR) 1.025 1.005-1.030 PH UR (test code = PH) 5.5 4.5-8.0 PROTEIN UR (test code = PU) Negative NEGATIVE NITRITE UR (test code = NITRITE) Negative NEGATIVE UROBIL UR (test code = GUROQ) 0.2 E.U./dL UROBIL UR (test code = GUROQC) UROBILINOGEN REFERENCE RANGE 0.2 - 1.0 EU/dL BLOOD UR (test code = UA BLOOD) Negative NEGATIVE LEUK ES UR (test code = LEUK) Trace NEGATIVE DIRECT STREP GROUP AOW2018-08-08 15:08:00* Test Item Value Reference Range Interpretation Comme nts STREP A AG (test code = STREP) NEGATIVE NEGATIVE CBC (INCLUDES AUTOMATED DIFFERENTIAL) *2018-08-08 14:53:00* Test Item Value Reference Range Interpretation Comme nts WBC (test code = WBC) 8.6 10\\S\\3/uL [...] GMID%) 8.5 % 0.0-10.0 CHEM8+ i-STAT OW2018-08-08 14:53:00* Test Item Value Reference Range Interpretation Comme nts SODIUM (test code = MENG) 140 mmol/L [...] 14:39:21PA and lateral chest, 2 viewsLocation code: [id number] HISTORY: Chest painCOMPARISON: NoneCOMMENTS:The lungs are clear and well inflated. The costophrenic angles aresharp. The cardiomediastinal silhouette is unremarkable. The bones are intact.IMPRESSION: No acute abnormality Notes Date/Time Note Provider Source 2023-11-13 14:57:22 JwZGeqb5TiIlUr5yU4z+ f+lwa2dZst74Gs QPmsg2gAkqwA2TN6mKzMrzXKP6SNfI6815 -03-29T14:57:22 Sent pt indidebt message advising her to f/u with [facility] pharmacy. They at times have pt assistance available. 39257-9Ectucvpfk encounter VtseOG5679-93-07R64:00:36Telephone encounter NoteTXT1.2.840.783607.1.13.104.2.7 .2.568178|[id number] for patient npfd15908-0YbhnCRPCSQQZQCRVqkplanm d C-CDA narrative [address] Ov[id number] 59GVKLWNFMFVSPYSKHOFDJYP9079-75-74 T15:00:361.2.840.354678.1.72.3.15| 1.2.840.476606.1.13.104.2.7.2.7278 [id number] [facility] 2023-11-13 12:58:03 4WXSvNr5scRRYVxnaVm9 oP3F7P5D5iSsDg eZBdgdmD/gM62IiEk4xqOWtD0wYsJO1501 -03-29T12:58:03 Copied from [facility] #[id number]. 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 She is not able to pay for prescription and is needing financial assistance.Patient states that last time prescription was mailed to her.Please advise. 66655-5Yiekxrktw encounter LycyYZ3070-77-88U08:59:25Telephone encounter NoteTXT1.2.840.886971.1.13.104.2.7 .2.182289|[id number] for patient oxxd05357-2HizoPRHHIUIEQSBTqfeltxc d C-CDA narrative [id number] A [address] Gm[id number] 47SEHEVGIDGABPJVDNVQRNOS2835-15-67 T12:59:251.2.840.255475.1.72.3.15| 1.2.840.487695.1.13.104.2.7.2.7278 [id number] Jackelin Williamson [facility] 2023-11-10 12:45:59 p14skae5OL2tMOuGjE+I gb64kp6GZOQh6G dvEindKm8jHSKmAfmPezv/L2zJzFuj6237 -03-26T12:45:59 Prescription & Letter of Medical Necessity has been completed & signed by Zev Villa DO as well as scanned to patient's chart. Clinical notes, patient demographics, & LMN have all been faxed to [employer] .Anne Shane MA 11/10/2023 12:46 PM 02280-3Uzrwjfgbw encounter EsmzYA0287-63-84S60:46:09Telephone encounter NoteTXT1.2.840.432399.1.13.104.2.7 .2.784370|[id number] for patient bouz07178-6FmnkKNGXPPVKHFKVdfnnnyi d C-CDA narrative [id number] Martinez [id number] 76EEHUPKTYLHVJQJYDXIEIJG6904-50-62 T12:46:091.2.840.960117.1.72.3.15| 1.2.840.283127.1.13.104.2.7.2.7278 [id number] Anne Shane [facility] 2023-11-03 16:45:00 Un/UBkbygg2ynRRuQUKk aRlXt3WHPsuxMI Jp29NbmmitIpCiqQ1tNStqN9FucpXU9263 -03-19T16:45:00 Images from the original note were not included.Venipuncture collection performed by clean technique on the right anticubitus. Total of 1 attempts were made. Slight pressure and a bandage/dressing were applied to the site(s). The patient experienced no complications. The following specimens were processed according to instructions and sent to [facility] laboratories per lab order on 11/03/2023:LT BLUESST 5REDLAVPPTDK GREEN (LiHep)LT GREEN (LiHep)GRAYDK BLUE (K2)DK BLUE (S)ACDBlood CultureNIPTUrineUrine Culture 59029-5Mqwak IejvOC1394-37-73G20:36:48Nurse NoteTXT1.2.840.120646.1.13.104.2.7 .2.124187|[id number] for patient fxsf98663-6Rrbep NoteLNNARRATIVEFormatted C-CDA narrative text[address] Zx[id number] 46IMBLRCBTPGRZSVLBGQZUVQ1219-93-86 T16:36:481.2.840.667424.1.72.3.15| 1.2.840.511135.1.13.104.2.7.2.7278 [id number] [facility] 2023-10-30 16:08:09 CISaHhmWWTxqBUhmf7E3 ZE4N7TOKtYd1oB /rRn8wgHtJMvLgawp99jypXeBiuHEJ9269 -03-15T16:08:09 Called patient scheduled her an appt with Shea SIERRA at the [facility] clinic on 11/02 51722-3Uhgoxpdjm encounter XzeuBZ9166-74-86P63:09:03Telephone encounter NoteTXT1.2.840.861979.1.13.104.2.7 .2.749165|[id number] for patient ebip09654-0OckhQUELLUOYHRZEetcxsha d C-CDA narrative [id number] [address] Qv[id number] 58PMYZVDHBBWKOVGFEDYUUTE2552-67-89 T16:09:031.2.840.120873.1.72.3.15| 1.2.840.782930.1.13.104.2.7.2.7278 [id number] Pam Fuentes [facility] 2023-10-30 09:24:34 QKoPwU8BxpNux+AhapYP F0FfaQBZlEfOWy GijmtmDiYWEm50kYRe1MMj6tv4Ag6o8843 -03-15T09:24:34 Please call patient to schedule appointment to discuss lab results. Bonnie Haji MA 10/30/2023 9:24 AM 65432-2Dupbvdbjd encounter OjqkAX0910-05-85E31:25:02Telephone encounter NoteTXT1.2.840.358993.1.13.104.2.7 .2.188530|[id number] for patient hcxu50341-8CugqGDNCZAXFDKUWeemitvp d C-CDA narrative [id number] Sanchez [id number] 40IHOJNMJECMKIRQCKXICNMI8890-25-80 T09:25:021.2.840.129423.1.72.3.15| 1.2.840.494919.1.13.104.2.7.2.7278 [id number] Bonnie Haji [facility] 2023-10-29 17:16:36 sP1iOv8xFtEWq0KB5pGN OEb+DAUEKz+Oneyda Yt2iKvS7YjnGWn87xv1eBxuO0ri7Dt2873 -03-14T17:16:36 Recommend patient schedule a follow up appointment to discuss lab results. 66959-7Eottoerni encounter CfznYM9919-73-29M00:18:00Telephone encounter NoteTXT1.2.840.713590.1.13.104.2.7 .2.716114|[id number] for patient pdwd31516-5DdtpIWYVVBFPJTSHedmfsfb d C-CDA narrative textPA-PHYSICIAN SEED CORN PRODUCTION MANAGER MIDLEVEL PROVIDERPA-PHYSICIAN SEED [employer]N PRODUCTION MANAGER MIDLEVEL PROVIDER[id number] 54XGFFUNQVCBGQXIIWVKTFDA9430-51-35 T17:18:001.2.840.449479.1.72.3.15| 1.2.840.135003.1.13.104.2.7.2.7278 [id number] RIGO-PHYSICIAN SEED [employer]N PRODUCTION MANAGER MIDLEVEL PROVIDER [facility] 2023-10-26 14:04:03 KqVeN+7WafoZlHUbnZai h9Er/g8pwfCCin s+aeoI6WBOLUEjlo+ZdC+1isayoc6z0374 -03-11T14:04:03 Please advise on lab results. Bonnie Haji MA 10/26/2023 2:04 PM 04776-4Xvdnaegkm encounter CwuaSN2992-70-38K55:04:19Telephone encounter NoteTXT1.2.840.744272.1.13.104.2.7 .2.409793|[id number] for patient yphx94216-8HvzcJUCWMORDVXYXlgowbmj d C-CDA narrative text[address] Zz[id number] 60VHXMHMFATTVOUDNACWDWVY9408-85-37 T14:04:191.2.840.973466.1.72.3.15| 1.2.840.327122.1.13.104.2.7.2.7278 [id number] [facility] 2023-10-26 09:40:39 OTHhmJyU7xriDtcelcEg x1VhBtSgNkVGAU 6uvFda4lQj7LfwpzQjTNEp6+3sKtvC9430 -03-11T09:40:39 Serenity Calderon is a 43 year old femalePt is calling requesting to speak with a nurse regarding lab results. Please advise.[phone] (home) 74531-6Ltctptyuc encounter QagkZI3670-02-77J00:42:34Telephone encounter NoteTXT1.2.840.796549.1.13.104.2.7 .2.005908|[id number] for patient wnae95596-5TvkwIYTRBHLBAIJJtcaevuu d C-CDA narrative [id number] T [id number] 84TUTRBOBBNPVRCJHNHTMXAD4364-36-36 T09:42:341.2.840.241424.1.72.3.15| 1.2.840.222514.1.13.104.2.7.2.7278 [id number] Ana Pritchett [facility] 2023-10-01 15:00:00 SPAAPNkuK4EiJA5W28a3 fA4sscm4lV2KQK 3YhI+qadejt2rqiWT0bQwC4QO8Kybt4888 -02-15T15:00:00 Images from the original note were not included.Venipuncture collection performed by clean technique on the left anticubitus. Total of 1 attempts were made. Slight pressure and a bandage/dressing were applied to the site(s). The patient experienced no complications. The following specimens were processed according to instructions and sent to [facility] laboratories per lab order on 10/01/2023:LT BLUESST 3REDLAV 2PPTDK GREEN (LiHep)DK GREEN (SodH)GRAYDK BLUE (K2)DK BLUE (S)ACDBlood CultureNIPT/NTD 29565-0Abjng VemeKJ3888-56-93R30:19:43Nurse NoteTXT1.2.840.601434.1.13.104.2.7 .2.137092|[id number] for patient hqah45457-0Luihz NoteLNNARRATIVEFormatted C-CDA narrative text[id number] 37UZFLNIDBCZAAWLTWMZSCQX1665-53-53 T15:19:431.2.840.696643.1.72.3.15| 1.2.840.356690.1.13.104.2.7.2.7278 [id number] [facility]"
[2023-11-24] MEDS ORDERED: KETOROLAC 30 MG/ML INJ ONE ×2 (15:01→15:50)
[2023-11-24] MEDS ORDERED: NA CHLORIDE 0.9% 1,000 ML ONE (15:01)
[2023-11-24] MEDS ORDERED: DIPHENHYDRAMINE 50 MG/ML VIAL ONE (15:01)
[2023-11-24 15:07] LABS: Absolute Basophils 0.1 K/uL (0-0.5); Absolute Eosinophils 0.1 K/uL (0-0.5); Absolute Lymphocytes (CBC) 2.7 K/uL (0.7-4.9); Absolute Monocytes 0.5 K/uL (0.1-1.3); Absolute Neutrophil 5.6 K/uL (1.8-8.0); Basophils % 0.7 % (0-1.3); Eosinophils % 1.3 % (0-4.4); Hematocrit 40.8 % (36.0-45.0); Hemoglobin 13.7 g/dL (12.0-15.0); Lymphocytes % 30.1 % (15.3-44.8); MCH 30.3 pg (27.0-35.0); MCHC 33.5 g/dL (32.0-36.0); MCV 90.6 fL (80-100); MPV 8.3 fL (7.6-11.3); Monocytes % 5.4 % (3.3-12.3); Neutrophils % 62.5 % (41.7-73.7); Platelets 366 thou/uL (152-406); Red Cell Distribution Width 14.1 % (12.1-15.2)
[2023-11-24 15:18] LABS: Anion Gap 7.8 mEq/L (5.0-15.0); Potassium 3.8 mEq/L (3.5-5.1)
--- NOTE | 2023-11-24 15:38 | EDPHYS ---
Physician Documentation [facility] Name: Serenity Collins Age: 43 yrs Sex: Female : 1980 Arrival Date: 11/24/2023 Time: 13:35 Bed 9 Private MD: ED Physician Arnold Parker HPI: 11/23 14:05 This 43 yrs old Female presents to ER via Ambulatory with complaints of ec2 Migraine. 14:05 Patient arrives today for evaluation of headache. Patient reports she been having a ec2 headache for 1 year. Patient reports that she is having worsening symptoms. Patient reports associated nausea, no vomiting, no recent head trauma. Patient reports she has "had every test under the sun "and has no diagnosis. Patient reports she needs to follow-up for further testing and possible MRI outpatient.. 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 - Infectious Disease History:: Denies. - Social history:: Smoking status: Patient denies any tobacco usage or history of. ROS: 14:05 Constitutional: as per hpi ec2 Exam: 14:05 Constitutional: GEN: NAD Head: atraumatic Eyes: EOMI Ears: External ears are ec2 normal. CV: regular rate LUNGS: no respiratory distress ABD: non-distended SKIN: no evidence of rashes MSK: no evidence of trauma NEURO: moves all extremities equally, nonfocal examination. Vital Signs: 13:59 BP 140 / 103; Pulse 115; Resp 18 S; Temp 97.9(TE); Pulse Ox 99% on R/A; as6 14:03 Weight 61.23 kg (R); Height 5 ft. 2 in. (R); Pain 10/10; as6 15:50 BP 133 / 97; Pulse 90; Resp 16; Temp 97.8(TE); Pulse Ox 99% ; nj1 14:03 Body Mass Index 24.69 (61.23 kg, 157.48 cm) as6 14:03 Pain Scale: Adult as6 MDM: 14:03 Patient medically screened. ec2 14:05 Data reviewed: vital signs. ED course: Patient arrives today for evaluation for ec2 headache. Examination remarkable for nontoxic dividual who is neuro intact. Will obtain lab work, treat the patient's symptoms. Suspect chronic migraines causing her symptoms. Doubt electrolyte disturbances, doubt acute intracranial process such as intracranial brain bleed or meningitis.. 15:36 ED course: Metabolic profile reassuring, CBC reassuring. . ec2 15:37 ED course: Metabolic profile reassuring, CBC reassuring. . ec2 11/23 14:05 Order name: CBC with Diff; Complete Time: 15:36 ec2 11/23 14:05 Order name: BMP; Complete Time: 15:36 ec2 11/23 15:37 Order name: Vital Signs; Complete Time: 15:58 ec2 Administered Medications: 15:07 Drug: NS 0.9% IV 1000 ml IV at 1 bolus Per protocol; 1000 mL bolus Route: IV; Rate: 1 nj1 bolus; Site: right antecubital; 16:16 Follow up: Response: No adverse reaction; IV Status: Completed infusion; IV Intake: nj1 1000ml 15:07 Drug: Ketorolac IVP 15 mg IVP once Route: IVP; Site: right antecubital; nj1 15:57 Follow up: Response: No adverse reaction; Pain is unchanged, physician notified nj1 15:08 Drug: diphenhydrAMINE IVP 25 mg IVP once Route: IVP; Site: right antecubital; nj1 15:57 Follow up: Response: No adverse reaction nj1 15:09 Drug: Droperidol IVP 2.5 mg IVP once Route: IVP; Infused Over: 2 mins; Site: right [facility] antecubital; 15:57 Follow up: Response: No adverse reaction nj1 15:53 Drug: Ketorolac IVP 15 mg IVP once Route: IVP; Site: right antecubital; [facility] 16:16 Follow up: Response: No adverse reaction; Pain is unchanged, physician notified nj 15:54 Drug: metoCLOPramide IVP 10 mg IVP once; over 1 to 2 minutes Route: IVP; Site: right nj1 antecubital; 16:16 Follow up: Response: No adverse reaction nj1 Disposition Summary: 11/24/23 15:38 Discharge Ordered Notes: Location: Home ec2 Condition: Stable ec2 Diagnosis - Headache ec2 Followup: ec2 - With: Private Physician - When: - Reason: Re-evaluation by your physician Discharge Instructions: - Discharge Summary Sheet ec2 - General Headache Without Cause ec2 Forms: - Medication Reconciliation Form ec2 - Thank You Letter ec2 - Antibiotic Education ec2 - Prescription Opioid Use ec2 - Patient Portal Instructions ec2 - Leadership Thank You Letter ec2 Signatures: Dispatcher [employer] Joseluis Arteaga RN RN as6 Ruba Flores RN RN nj1 Arnold Parker MD MD ec2 Corrections: (The following items were deleted from the chart) 14:05 14:05 CBC+H.LAB.BRZ ordered. EDMS EDMS 14:05 14:05 BASIC METABOLIC PANEL+C.LAB.BRZ ordered. EDMS EDMS
--- NOTE | 2023-11-24 15:38 | ER ---
Nurse's Notes [facility] Name: Serenity Collins Age: 43 yrs Sex: Female : 1980 Arrival Date: 11/24/2023 Time: 13:35 Bed 9 Private MD: Diagnosis: Headache Presentation: 11/23 13:59 Chief complaint: Patient states: migraine x3 days. Coronavirus screen: At this time, as6 the client does not indicate any symptoms associated with coronavirus-19. Ebola Screen: No symptoms or risks identified at this time. Initial Sepsis Screen: Does the patient meet any 2 criteria? No. Patient's initial sepsis screen is negative. Does the patient have a suspected source of infection? No. Patient's initial sepsis screen is negative. Risk Assessment: Do you want to hurt yourself or someone else? Patient reports no desire to harm self or others. Onset of symptoms was November 21, 2023. 13:59 Method Of Arrival: Ambulatory as6 13:59 Acuity: MARY 3 as6 Triage Assessment: 14:00 General: Appears uncomfortable, Behavior is calm, cooperative. Pain: Complains of pain as6 in head. Neuro: Reports headache. 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 - Infectious Disease History:: Denies. - Social history:: Smoking status: Patient denies any tobacco usage or history of. Screenin:13 [facility] ED Fall Risk Assessment (Adult) History of falling in the last 3 months, nj1 including since admission No falls in past 3 months (0 pts) Confusion or Disorientation No (0 pts) Intoxicated or Sedated No (0 pts) Impaired Gait No (0 pts) Mobility Assist Device Used No (0 pt) Altered Elimination No (0 pt) Score/Fall Risk Level 0 - 2 = Low Risk Oriented to surroundings, Maintained a safe environment, Hourly rounding (assess needs \T\ fall precautionary measures) done. Abuse screen: Denies threats or abuse. Denies injuries from another. Nutritional screening: No deficits noted. Tuberculosis screening: No symptoms or risk factors identified. Assessment: 15:05 General: Appears in no apparent distress. uncomfortable, Behavior is calm, cooperative, nj1 appropriate for age. Pain: Complains of pain in head Pain currently is 10 out of 10 on a pain scale. Quality of pain is described as aching. Neuro: Reports headache since 3 days ago. Cardiovascular: Patient's skin is warm and dry. Respiratory: Airway is patent Respiratory effort is even, unlabored. Vital Signs: 13:59 BP 140 / 103; Pulse 115; Resp 18 S; Temp 97.9(TE); Pulse Ox 99% on R/A; as6 14:03 Weight 61.23 kg (R); Height 5 ft. 2 in. (R); Pain 10/10; as6 15:50 BP 133 / 97; Pulse 90; Resp 16; Temp 97.8(TE); Pulse Ox 99% ; nj1 14:03 Body Mass Index 24.69 (61.23 kg, 157.48 cm) as6 14:03 Pain Scale: Adult as6 ED Course: 13:36 Patient arrived in ED. rg4 13:37 Arnold Parker MD is Attending Physician. ec2 13:59 Arm band placed on. as6 14:00 Triage completed. as6 14:40 CBC with Diff Sent. as6 14:40 BMP Sent. as6 14:40 Inserted saline lock: 20 gauge in right antecubital area, using aseptic technique. as6 Blood collected. 15:05 Patient has correct armband on for positive identification. Placed in gown. Bed in low nj1 position. Adult w/ patient. Provided Education on: call light, fall precautions. 15:05 Lights dimmed. nj1 15:11 Ruba Flores, YOHAN is Primary Nurse. nj1 16:16 No provider procedures requiring assistance completed. nj1 16:16 IV discontinued, intact, bleeding controlled, Pressure dressing applied. nj1 Administered Medications: 15:07 Drug: NS 0.9% IV 1000 ml IV at 1 bolus Per protocol; 1000 mL bolus Route: IV; Rate: 1 nj1 bolus; Site: right antecubital; 16:16 Follow up: Response: No adverse reaction; IV Status: Completed infusion; IV Intake: nj1 1000ml 15:07 Drug: Ketorolac IVP 15 mg IVP once Route: IVP; Site: right antecubital; nj1 15:57 Follow up: Response: No adverse reaction; Pain is unchanged, physician notified nj1 15:08 Drug: diphenhydrAMINE IVP 25 mg IVP once Route: IVP; Site: right antecubital; nj1 15:57 Follow up: Response: No adverse reaction nj1 15:09 Drug: Droperidol IVP 2.5 mg IVP once Route: IVP; Infused Over: 2 mins; Site: right nv1 antecubital; 15:57 Follow up: Response: No adverse reaction nj1 15:53 Drug: Ketorolac IVP 15 mg IVP once Route: IVP; Site: right antecubital; nj1 16:16 Follow up: Response: No adverse reaction; Pain is unchanged, physician notified nj1 15:54 Drug: metoCLOPramide IVP 10 mg IVP once; over 1 to 2 minutes Route: IVP; Site: right [facility] antecubital; 16:16 Follow up: Response: No adverse reaction nj1 Medication: 16:16 VIS not applicable for this client. nj1 Intake: 16:16 IV: 1000ml; Total: 1000ml. nj1 Outcome: 15:38 Discharge ordered by . ec2 16:16 Patient left the ED. nj1 16:16 Discharged to home ambulatory, with friend, nj 16:16 Condition: stable 16:16 Discharge instructions given to patient, Instructed on discharge instructions, follow up and referral plans. Demonstrated understanding of instructions, follow-up care, Signatures: Shilpa Zarco rg4 Joseluis Avelar RN RN as6 Ruba Flores RN RN nj1 Arnold Parker MD MD ec2
[2023-11-24] MEDS ORDERED: METOCLOPRAMIDE 10 MG/2mL INJ ONE (15:50)
[2023-11-24 16:37] VITALS: BP 133/97; TEMP 97.8; O2SAT 99
== END 2023-11-24 16:16 | disposition home or self-care (01) ==
LOC: ER 13:35
DX: R51.9 Headache, unspecified (principal); F31.9 Bipolar disorder, unspecified; Z88.5 Allergy status to narcotic agent; Z88.8 Allergy status to other drugs, medicaments and biological substances; Z91.013 Allergy to seafood; Z91.018 Allergy to other foods
CPT/HCPCS: 96361; 85025; 80048; 36415; 96375; 96374; 99284; J2765; J1200; J7030

== ENCOUNTER 2024-06-03 12:46 | Emergency (ER) | payer MEDICARE ==
--- OUTSIDE RECORDS SUMMARY | 2024-06-03 12:52 | XMS REPORT | Continuity of Care Document ---
Author Name Unknown Address [address] [facility] [address] [place] [address] [facility] Address [address] [facility] [address] [place] [address] Care Team Providers Care Sales Correspondent Name Role Phone Lawrence Amberly GORE Primary Care Physician ANTONY JOSHUA Attending Clinician Unavail able Doctor Unassigned, [place] Attending Clinician U ELIU Byrne Attending Clinician Un available JIMMY CARROLL Attending Clinician Unavailable HUGH SYLVESTER Attending Clinician Unavailable HUGH SYLVESTER Attending Clinician Unavailable ZEV VILLA Attending Clinician Unavailable Eliu Barnes MD Attending Clinician Pcp-Lab Attending Clinician Unavailable Jesus Garay MD Attending Clinician [phone] Daphnie Dawson LCSW Attending Clinician U LEN Duncan Attending Clinician Unavailable Len Thurston MD Attending Clinician [phone] NILA JOVEL Attending Clinician Unavailable SHEA SEBASTIAN Attending Clinician Unavailable SHEA SEBASTIAN Attending Clinician Unavailable Zev Villa DO Attending Clinician [phone] Llanos TITLE SEARCHER, Anne Attending Clinician [phone] Pcp-Lab Attending Clinician Unavailable Song Chang MD Attending Clinician [phone] Vtc-Lab Attending Clinician Unavailable SONG CHANG Attending Clinician Unavailable Doctor Unassigned, [place] Attending Clinician SHANDRA Chase Attending Clinician Unavailable MARINO WILLS Attending Clinician Unavailable Pgy3 Attending Clinician Unavailable Marino Wills MD Attending Clinician + [phone] MARCIANO WAYNE Attending Clinician Unavailab zen Wayne MD, Marciano Attending Clinician [phone] Ryan TITLE SEARCHER, Felisa Attending Clinician [phone] FELISA DAVIS Attending Clinician Unavailable Jimmy Carroll MD Attending Clinician + [phone] Sourav TAY, Sharan Arthur Attending Clinician [phone] Leonie ALMANZAR, Katy Attending Clinician Unavailable Brody MATHEWS, Simeon Carter Attending Clinician Unavail SURESH Coffey Attending Clinician Unavailabl chang Bonilla DDS, Suresh Hemphill Attending Clinician [phone] Chrissy TITLE SEARCHER, Cristy Liriano Attending Clinician [phone] Emmanuel RAMIRES, Peggy Attending Clinician + [phone] Mehul GALVANS, Chau Mccarthy Attending Clinician [phone] CHAU CARVER Attending Clinician Unavailab zen Joshua MD, Antony Leach Attending Clinician [phone] Arianna Locke MD Attending Clinician [phone] Jewel TAY, Otis Attending Clinician [phone] OTIS HO Attending Clinician Unavailable Only, Adc Test Attending Clinician Unavailable Melanie Lou RN Attending Clinician [phone] BENTLEY HERRON Attending Clinician Unavailable Eliz Cantu MD Attending Clinician [phone] Shawn Agudelo MD Attending Clinician +[phone] SHAWN AGUDELO Attending Clinician Unavailabl chang Gonzalez MD, Theodora Attending Clinician [phone] SENA JONES Attending Clinician Unavailable Bobby TITLE SEARCHER, Sena Attending Clinician [phone] Alejandro Benites DO Attending Clinician [phone] Unknown, Attending Attending Clinician Unavailab le UNKNOWN, ATTENDING Attending Clinician Unavailab SON Pulido Attending Clinician Tiffany Shane CLEANER, Montse M Attending Clinician Unaary De León_Estelachana Attending Clinician Unavailable Francis TAY, Jody Attending Clinician [phone] Suleiman TORREZ, Bentley Attending Clinician [phone] EMILY RIVERA Attending Clinician Unavailable Miguel TAY, Emily Mccormack Attending Clinician + [phone] Only, [facility] Test Attending Clinician Unavailable SABINO DUMONT Attending Clinician Unavaillui Dumont MD, Sabino Williamson Attending Clinician + [phone] FRANKLYN CASTILLO Attending Clinician Unavailable Pgy2 Attending Clinician Unavailable Franklyn Castillo MD Attending Clinician [phone] Jack Ott MD Attending Clinician [phone] Alma Rosa Sethi MD Attending Clinician + Soila GORE, Catalina Attending Clinician [phone] Pcp, Patient Does Not Have A Attending Clinician Curt Koehler Attending Clinician [phone] Curt KEMP Attending Clinician Unavailable DR ZEV PAEZ Attending Clinician Unavailable DR KEYUR PUENTE Attending Clinician Unavaila ayden HUNT, DR MARKELL Madison Attending Clinician DR PAULINE Chowdhury BA Attending Clinician Unavailable DR MELANIE LAI Attending Clinician Unavaila ayden LAWRENCE, DR LEACH Attending Clinician Unavailable TRISH, DR DARÍO Newton Attending Clinician ANTONY Miller Admitting Clinician Unavail able MARCIANO WAYNE Admitting Clinician Unavailab FELISA Ramos Admitting Clinician Unavailable SURESH BONILLA Admitting Clinician Unavaillui Bonilla DDS, Suresh Hemphill Admitting Clinician [phone] Antony Joshua MD Admitting Clinician SENA JONES Admitting Clinician Unavailable SarthakWinifred Admitting Clinician Unavailable EMILY RIVERA Admitting Clinician Unavailable Emily Rivera MD Admitting Clinician [phone] SABINO DUMONT Admitting Clinician UnavailMARINO Arriaza Admitting Clinician Unavailable Marino Wills MD Admitting Clinician + [phone] JEANNINE, DR WHATLEY Admitting Clinician Unavailable CINDI, DR KEYUR Elias Admitting Clinician Unavaila ayden HUNT, DR MARKELL Madison Admitting Clinician Unabraxton hernandez BA, DR CARPENTER Admitting Clinician Unavailable MING, DR MELANIE Downing Admitting Clinician Unavailchana LAWRENCE, DR LEACH Admitting Clinician Unavailable TRISH, DR DARÍO Newton Admitting Clinician Unajeremiah dumas Payers Payer Name Policy Type Policy Number Effective Date Expirati on Date Source [facility] CASEBOOK [id number] 2021 00:00:00 2022 00:00:00 [facility] [id number] 2022 00:00:00 [facility] COMM [id number] 2022 00:00:00 [facility] [id number] 2021 00:00:00 2021 00:00:00 Problems Condition Name Condition Details Condition Category Status Onset Date Resolution Date Last Treatment Date Treating Clinician Comments Source 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 Added automatic ally from request for surgery [id number] [facility] Chronic pelvic pain in female Chronic pelvic pain in female Disease Active 4-14 00:00: 00 Overview: Formattin g of this note might be different from the original. Added automatic ally from request for surgery [id number] [facility] Hydrosalpi nx Hydrosalpi nx Disease Active 11-12 00:00: 00 [facility] Generalize d anxiety disorder Generalize d anxiety disorder Disease Active 11-12 00:00: 00 [facility] Bipolar disorder in full remission, most recent episode unspecifie d type Bipolar disorder in full remission, most recent episode unspecifie d type Disease Active 11-12 00:00: 00 [facility] Abdominal pain Abdominal pain Disease Active - 00:00: 00 [facility] Allergies, Adverse Reactions, Alerts Allergy Name Allergy Type Status Severity Reaction(s) Onset Date Inactive Date Treating Clinician Comments Source HYDROCOD ONE-ACET AMINOPHE N DRUG Active ITCHING 2021-08 0-04 00:00: 00 [facility] Hydrocod one-Acet aminophe n Propensi ty to adverse reaction s Active Itching 2021-08 0-04 00:00: 00 [facility] Quetiapi ne Drug Intolera nce Active Other - See comments 6 00:00: 00 Made pt. Get really mad [facility] Shellfis h Derived Propensi ty to adverse reaction s Active Nausea and/or Vomiting 6-07 00:00: 00 [facility] QUETIAPI NE DRUG INGREDI Active High Other-Cmnt 6-07 00:00: 00 [facility] SHELLFIS H DERIVED DRUG INGREDI Active High ITCHING 6-07 00:00: 00 [facility] Joe Propensi ty to adverse reaction s Active Anaphylaxis 0 4-08 00:00: 00 [facility] JOE DRUG INGREDI Active Anaphylaxis 0 4-08 00:00: 00 [facility] Codeine Propensi ty to adverse reaction s Active Itching - 00:00: 00 To face [facility] CODEINE DRUG INGREDI Active ITCHING 0 2-23 00:00: 00 [facility] Social History Social Habit Start Date Stop Date Quantity Comments [facility] intake 2024-03-29 00:00:00 2024-03-29 00:00:00 Ex-drinker (finding) [facility] History of Social function 2024-03-22 00:00:00 2024-03-22 00:00:00 [facility] Tobacco use and exposure 2024-03-22 00:00:00 2024-03-22 00:00:00 Smokeless tobacco non-user [facility] Alcohol intake 2023-11-10 00:00:00 2023-11-10 00:00:00 Ex-drinker (finding) [facility] Exposure to SARS-CoV-2 (event) 2022-10-28 00:00:00 2022-11-07 12:55:[address] [facility] Alcohol Comment 2022-10-15 00:00:00 2022-10-15 00:00:[address] [facility] History of tobacco use 2022-05-19 00:00:[address] [facility] Tobacco Comment 2022-04-07 00:00:00 2022-04-07 00:00:[address] Occassionally smokes [address] [facility] Sex assigned at 1980 00:00:00 1980 00:00:00 [facility] Smoking Status Start Date Stop Date Source Ex-smoker 2024-03-22 00:00:00 2024-03-22 00:00:00 [facility] Occasional tobacco smoker 2022-06-03 00:00:00 [facility] Smokes tobacco daily 2021-11-19 00:00:00 [facility] Medications Ordered Medication Name Filled Medication Name Start Date Stop Date Current Medication? Ordering Clinician Indication Dosage Frequency Signature (SIG) Comments Components Source diclofenac dodium (VOLTAREN ARTHRITIS PAIN) 1 % gel 03-29 00:00: 00 Yes [id number] 2g Apply 2 g to area(s) 4 (four) times daily as needed for Pain. [facility] Capsaicin 0.1 % cream 03-29 00:00: 00 2024- 11-12 05:59 :00 Yes [id number] Apply to area(s) 4 (four) times daily as needed for Pain (scale 4-6) for up to 90 days. [facility] cyclobenzap rine 10 mg tablet 11-09 00:00: 00 03-29 00:00 :00 No [id number] 10mg Take 1 tablet by mouth in the morning and 1 tablet at noon and 1 tablet in the evening. [facility] amitriptyli ne 10 mg tablet 10-01 00:00: 00 01-29 04:59 :00 No [id number] 10mg Take 1 tablet by mouth at bedtime for 120 days. [facility] ubrogepant 100 mg Tab 2022-08 00:00: 00 Yes [id number] 100mg Take 1 tablet by mouth as needed for Other (Headache) for up to 64 doses. If symptoms persist or return, may repeat dose after 2 hours. Maximum: 200 mg per 24 hours [facility] topiramate 25 mg tablet 2022-08 00:00: 00 07-13 05:59 :00 No [id number] Take 1 tablet by mouth 2 (two) times daily for 7 days, THEN 2 tablets 2 (two) times daily for 21 days. [facility] sumatriptan 100 mg tablet 2022-08 030 00:00: 00 07-13 00:00 :00 No [id number] 100mg Take 1 tablet by mouth as needed for Migraine (Max of 2 tablets/da y.). [facility] ondansetron (ZOFRAN (PF)) injection 4 mg 11-04 17:45: 00 11-04 17:58 :00 No 4mg 4 mg, Slow IV Push, ONCE, 1 dose, On Thu11/04/22 at 1245, ANTOINETTE [facility] morpHINE (4 mg/mL) injection 4 mg 11-04 17:45: 00 11-04 17:58 :00 No 4mg 4 mg, Slow IV Push, ONCE, 1 dose, On Thu11/04/22 at 1245, STAT [facility] ketorolac (TORADOL) injection 30 mg 11-04 16:15: 00 11-04 15:45 :00 No 30mg 30 mg, Slow IV Push, ONCE, 1 dose, On Thu11/04/22 at 1115, ANTOINETTE [facility] OLANZapine 5 mg tablet 08-18 10:02: 06 08-18 00:00 :00 No 2.5mg Take 2.5 mg by mouth daily. [facility] TAKE 1 TABLET BY MOUTH EVERY 6 HOURS NEEDED 2021-08 00:00: 00 No OLANZapine 5 mg tablet 2021-08 13:28: 48 Yes 2.5mg Take 2.5 mg by mouth daily. [facility] ibuprofen (ADVIL CHILDREN'S) 100 mg/5 mL oral suspension 600 mg 2021-08 01:30: 00 Yes 600mg 600 mg, Oral, Q6H, First dose (after last modificati on) on Thu05/22/22 at 2030, Until Discontinu ed, Routine [facility] acetaminoph en (TYLENOL) 160 mg/5 mL oral liquid 650 mg 2021-08 01:15: 00 Yes 650mg 650 mg, Oral, Q6H, First dose (after last modificati on) on Thu05/22/22 at 2015, Until Discontinu ed, Routine [facility] ibuprofen 600 mg tablet 2021-08 00:00: 00 06-15 00:00 :00 No [id number] 101 600mg Take 1 tablet by mouth every 6 (six) hours as needed for Pain (scale 4-6). [facility] acetaminoph en (TYLENOL) 325 mg tablet 2021-08 0 00:00: 00 05-24 04:59 :00 No [id number] 101 650mg Take 2 tablets by mouth every 6 (six) hours as needed for Alternate with ibuprofen for pain scale 4-6. [facility] chlorhexidi ne 0.12 % mouthwash 2021-08 0- 00:00: 10-15 00:00 :00 No [id number] 101 15mL Swish and spit out 15 mL in the morning and 15 mL in the evening. [facility] amoxicillin -clavulanat e (AUGMENTIN) 875-125 mg per tablet 2021-08 007 00:00: 00 05-31 04:59 :00 No [id number] 101 1{tbl} Take 1 tablet by mouth in the morning and 1 tablet in the evening. Do all this for 7 days. [facility] metroNIDAZO LE (FLAGYL) 500 mg tablet 2021-08 00:00: 00 05-31 04:59 :00 No [id number] 101 500mg Take 1 tablet by mouth every 12 (twelve) hours for 7 days. [facility] morpHINE (2 mg/mL) injection 2 mg 2021-08 18:14: 35 Yes 2mg 2 mg, Slow IV Push, Q4HPRN, Starting on Thu05/21/22 at 1314, Until Discontinu ed, Routine, Pain (scale 7-10) [facility] lactated ringers IV infusion 1,000 mL 2021-08 16:30: 00 Yes 1000mL at 75 mL/hr, 1,000 mL, IV Infusion, CONTINUOUS , Starting on Thu05/21/22 at 1130, Until Discontinu ed, Routine, PACU [facility] lidocaine 2% viscous (LIDOCAINE VISCOUS) 2 % solution 2021-08 15:56: 00 05-21 16:27 :27 No PRN, Starting on Thu05/21/22 at 1056, Until Thu05/21/22 at 1127, Routine, Intra-op [facility] chlorhexidi ne (PERIDEX) 0.12 % mouthwash 15 mL 2021-08 13:00: 00 Yes 15mL 15 mL, Oral (Swish And Spit Out), BID, First dose on Thu05/21/22 at 0800, Until Discontinu ed, Routine [facility] ampicillin- sulbactam (UNASYN) 3 g in NaCl [...]
D uration of Therapy: Other (see Comments) [facility] lactated ringers IV infusion 1,000 mL 2021-08 0-05 03:45: 00 05-21 20:29 :02 No 1000mL at 125 mL/hr, 1,000 mL, IV Infusion, CONTINUOUS , Starting on Thu05/20/22 at 2245, Until Thu05/21/22 at 1529, Routine [facility] ketorolac (TORADOL) injection 15 mg 2021-08 0- 03:29: 07 Yes 15mg 15 mg, Slow IV Push, Q6HPRN, 4 doses, Starting on Thu05/20/22 at 2229, Until Discontinu ed, Routine, Pain (scale 4-6) [facility] ibuprofen (ADVIL CHILDREN'S) 100 mg/5 mL oral suspension 600 mg 2021-08 0-05 03:28: 25 Yes 600mg 600 mg, Oral, Q6HPRN, Starting on Thu05/20/22 at 2228, Until Discontinu ed, Routine, Pain (scale 1-3) [facility] ondansetron (ZOFRAN (PF)) injection 4 mg 2021-08 0-05 03:28: 21 Yes 4mg 4 mg, Slow IV Push, Q4HPRN, Starting on Thu05/20/22 at 2228, Until Discontinu ed, Routine, Nausea and Vomiting (N/V) [facility] ampicillin- sulbactam (UNASYN) 3 g in NaCl 0.9% (NS) 100 mL MINI-BAG 2021-08 0-05 02:00: 00 05-21 03:32 :00 No 3g 3 g, IV Piggyback, ONCE, 1 dose, On Thu05/20/22 at 2100, Administer over 30 Minutes, 100 mL
Reas on for Anti-Infec tive: Documented Infection< br>Documen saw Infection Site: Other
O ther site: dental
Duration of Therapy: 7 days [facility] iopamidol (ISOVUE 370-500 mL) injection 70 mL 2021-08 02:00: 00 05-21 02:00 :00 No [id number] 101 70mL 70 mL, Intravenou s, ONCE, 1 dose, On Thu05/20/22 at 2100, Routine [facility] ondansetron (ZOFRAN (PF)) injection 4 mg 2021-08 00:15: 00 05-21 01:16 :00 No 4mg 4 mg, Slow IV Push, ONCE, 1 dose, On Thu05/20/22 at 1915, ANTOINETTE [facility] ketorolac (TORADOL) injection 30 mg 2021-08 00:00: 00 05-21 01:16 :00 No 30mg 30 mg, Slow IV Push, ONCE, 1 dose, On Thu05/20/22 at 1900, Routine [facility] OLANZapine 5 mg tablet 2021-08 23:41: 15 Yes 2.5mg Take 2.5 mg by mouth daily. [facility] amoxicillin -clavulanat e 875-125 mg per tablet 2021-08 00:00: 00 Yes [id number] 101 1{tbl} Take 1 tablet by mouth every 12 (twelve) hours. [facility] ibuprofen 800 mg tablet 2021-08 0 00:00: 00 Yes [id number] 101 800mg Take 1 tablet by mouth every 6 (six) hours as needed for Pain (scale 4-6). [facility] OLANZapine 5 mg tablet 01-26 04:20: 01 Yes 2.5mg Take 2.5 mg by mouth daily. [facility] acetaminoph en 325 mg tablet 01-24 00:00: 00 05-23 00:00 :00 No [id number] 650mg Take 2 tablets by mouth every 6 (six) hours as needed for Pain (scale 1-3). [facility] ibuprofen 600 mg tablet 01-24 00:00: 00 05-23 00:00 :00 No [id number] 600mg Take 1 tablet by mouth every 6 (six) hours as needed for Pain (scale 4-6). [facility] cyclobenzap rine 5 mg tablet 2020-08 00:00: 00 No 1mg azithromyci n 500 mg tablet 05-03 00:00: 00 No 2mg fluoxetine 20 mg tablet 04-25 00:00: 00 No 1mg prednisone 10 mg tablet 04-25 00:00: 00 No mg Dose Unknown 04-25 00:00: 00 No Dose Unknown 04-25 00:00: 00 No Zofran 4 mg tablet 04-06 00:00: 00 No 1mg Vital Signs Vital Name Observation Time Observation Value Comments S ource Systolic blood pressure 2024-03-29 19:13:00 125 mm[Hg] [facility] Diastolic blood pressure 2024-03-29 19:13:00 78 mm[Hg] [facility] Heart rate 2024-03-29 19:13:00 91 /min [facility] Body temperature 2024-03-29 19:13:[address] [facility] Respiratory rate 2024-03-29 19:13:00 16 /min [facility] Body height 2024-03-29 19:13:00 157.5 cm [facility] Body weight 2024-03-29 19:13:00 66.543 kg [facility] BMI 2024-03-29 19:13:00 26.83 kg/m2 [facility] Oxygen saturation in Arterial blood by Pulse oximetry 2024-03-29 19:13:00 100 /min [facility] Systolic blood pressure 2024-03-22 18:32:00 135 mm[Hg] [facility] Diastolic blood pressure 2024-03-22 18:32:00 91 mm[Hg] [facility] Heart rate 2024-03-22 18:29:00 82 /min [facility] Body temperature 2024-03-22 18:29:[address] [facility] Respiratory rate 2024-03-22 18:29:00 19 /min [facility] Body height 2024-03-22 18:29:00 157.5 cm [facility] 2024-03-22 18:29:00 65.726 kg [facility] BMI 2024-03-22 18:29:00 26.50 kg/m2 [facility] Oxygen saturation in Arterial blood by Pulse oximetry 2024-03-22 18:29:00 98 /min [facility] Systolic blood pressure 2023-11-10 14:30:00 124 mm[Hg] [facility] Diastolic blood pressure 2023-11-10 14:30:00 80 mm[Hg] [facility] Heart rate 2023-11-10 14:30:00 99 /min [facility] Respiratory rate 2023-11-10 14:30:00 12 /min [facility] Body height 2023-11-10 14:30:00 157.5 cm [facility] Body weight 2023-11-10 14:30:00 63.05 kg [facility] BMI 2023-11-10 14:30:00 25.42 kg/m2 [facility] Oxygen saturation in Arterial blood by Pulse oximetry 2023-11-10 14:30:00 96 /min [facility] Systolic blood pressure 2023-11-03 20:42:00 131 mm[Hg] [facility] Diastolic blood pressure 2023-11-03 20:42:00 87 mm[Hg] [facility] Heart rate 2023-11-03 20:42:00 89 /min [facility] Body temperature 2023-11-03 20:42:[address] [facility] Body height 2023-11-03 20:42:00 157.5 cm [facility] weight 2023-11-03 20:42:00 63.05 kg [facility] BMI 2023-11-03 20:42:00 25.42 kg/m2 [facility] Oxygen saturation in Arterial blood by Pulse oximetry 2023-11-03 20:42:00 98 /min [facility] Systolic blood pressure 2023-10-01 19:21:00 126 mm[Hg] [facility] Diastolic blood pressure 2023-10-01 19:21:00 84 mm[Hg] [facility] Heart rate 2023-10-01 19:21:00 87 /min [facility] Respiratory rate 2023-10-01 19:21:00 16 /min [facility] Body height 2023-10-01 19:21:00 157.5 cm [facility] Body weight 2023-10-01 19:21:00 65.227 kg [facility] BMI 2023-10-01 19:21:00 26.30 kg/m2 [facility] Oxygen saturation in Arterial blood by Pulse oximetry 2023-10-01 19:21:00 95 /min [facility] Systolic blood pressure 2023-07-13 14:04:00 131 mm[Hg] [facility] Diastolic blood pressure 2023-07-13 14:04:00 84 mm[Hg] [facility] Heart rate 2023-07-13 14:04:00 77 /min [facility] Respiratory rate 2023-07-13 14:04:00 18 /min [facility] Body height 2023-07-13 14:04:00 157.5 cm [facility] Body weight 2023-07-13 14:04:00 64.456 kg [facility] BMI 2023-07-13 14:04:00 25.99 kg/m2 [facility] Oxygen saturation in Arterial blood by Pulse oximetry 2023-07-13 14:04:00 99 /min [facility] Systolic blood pressure 2023-06-15 18:59:00 124 mm[Hg] [facility] Diastolic blood pressure 2023-06-15 18:59:00 79 mm[Hg] [facility] Heart rate 2023-06-15 18:59:00 78 /min [facility] Body height 2023-06-15 18:59:00 157.5 cm [facility] Body weight 2023-06-15 18:59:00 66.044 kg [facility] BMI 2023-06-15 18:59:00 26.63 kg/m2 [facility] Oxygen saturation in Arterial blood by Pulse oximetry 2023-06-15 18:59:00 100 /min [facility] Systolic blood pressure 2022-11-07 18:04:00 144 mm[Hg] [facility] Diastolic blood pressure 2022-11-07 18:04:00 101 mm[Hg] [facility] Heart rate 2022-11-07 17:54:00 82 /min [facility] Body temperature 2022-11-07 17:54:[address] [facility] Respiratory rate 2022-11-07 17:54:00 18 /min [facility] Body height 2022-11-07 17:54:00 157.5 cm [facility] Body weight 2022-11-07 17:54:00 56.836 kg [facility] BMI 2022-11-07 17:54:00 22.92 kg/m2 [facility] Systolic blood pressure 2022-11-04 19:41:00 130 mm[Hg] [facility] Diastolic blood pressure 2022-11-04 19:41:00 75 mm[Hg] [facility] Heart rate 2022-11-04 19:41:00 77 /min [facility] Body temperature 2022-11-04 19:41:[address] [facility] Respiratory rate 2022-11-04 19:41:00 18 /min [facility] Oxygen saturation in Arterial blood by Pulse oximetry 2022-11-04 19:41:00 100 /min [facility] Body weight 2022-11-04 14:05:00 58.968 kg [facility] BMI 2022-11-04 14:05:00 23.78 kg/m2 [facility] Systolic blood pressure 2022-10-15 20:04:00 111 mm[Hg] [facility] Diastolic blood pressure 2022-10-15 20:04:00 77 mm[Hg] [facility] Heart rate 2022-10-15 20:04:00 70 /min [facility] Body temperature 2022-10-15 20:04:[address] [facility] Respiratory rate 2022-10-15 20:04:00 18 /min [facility] Body height 2022-10-15 20:04:00 157.5 cm [facility] Body weight 2022-10-15 20:04:00 60.328 kg [facility] BMI 2022-10-15 20:04:00 24.33 kg/m2 [facility] Systolic blood pressure 2022-08-18 15:31:00 115 mm[Hg] [facility] Diastolic blood pressure 2022-08-18 15:31:00 78 mm[Hg] [facility] Heart rate 2022-08-18 15:31:00 59 /min [facility] Body temperature 2022-08-18 15:31:[address] [facility] Respiratory rate 2022-08-18 15:31:00 18 /min [facility] Body height 2022-08-18 15:31:00 157.5 cm [facility] Body weight 2022-08-18 15:31:00 58.287 kg [facility] BMI 2022-08-18 15:31:00 23.50 kg/m2 [facility] Oxygen saturation in Arterial blood by Pulse oximetry 2022-08-18 15:31:00 99 /min [facility] Systolic blood pressure 2022-06-03 15:14:00 126 mm[Hg] [facility] Diastolic blood pressure 2022-06-03 15:14:00 81 mm[Hg] [facility] Heart rate 2022-06-03 15:14:00 77 /min [facility] Body temperature 2022-06-03 15:14:[address] [facility] Body height 2022-06-03 15:14:00 157.5 cm [facility] Body weight 2022-06-03 15:14:00 56.246 kg [facility] BMI 2022-06-03 15:14:00 22.68 kg/m2 [facility] Systolic blood pressure 2022-05-23 13:01:00 133 mm[Hg] [facility] Diastolic blood pressure 2022-05-23 13:01:00 89 mm[Hg] [facility] Heart rate 2022-05-23 13:01:00 88 /min [facility] Body temperature 2022-05-23 13:01:[address] [facility] Respiratory rate 2022-05-23 13:01:00 16 /min [facility] Oxygen saturation in Arterial blood by Pulse oximetry 2022-05-23 13:01:00 99 /min [facility] Body weight 2022-05-20 23:15:00 55.792 kg [facility] BMI 2022-05-20 23:15:00 22.50 kg/m2 [facility] Systolic blood pressure 2022-05-21 16:45:00 145 mm[Hg] [facility] Diastolic blood pressure 2022-05-21 16:45:00 83 mm[Hg] [facility] Respiratory rate 2022-05-21 16:45:00 16 /min [facility] Oxygen saturation in Arterial blood by Pulse oximetry 2022-05-21 16:45:00 100 /min [facility] Heart rate 2022-05-21 16:20:00 85 /min [facility] Body temperature 2022-05-21 16:20:[address] [facility] Body weight 2022-05-20 23:15:00 55.792 kg Univ [facility] BMI 2022-05-20 23:15:00 22.50 kg/m2 [facility] Systolic blood pressure 2022-05-08 19:04:00 148 mm[Hg] [facility] Diastolic blood pressure 2022-05-08 19:04:00 89 mm[Hg] [facility] Heart rate 2022-05-08 19:04:00 83 /min [facility] Body temperature 2022-05-08 19:04:[address] [facility] Body height 2022-05-08 19:04:00 157.5 cm [facility] Body weight 2022-05-08 19:04:00 55.656 kg [facility] BMI 2022-05-08 19:04:00 22.44 kg/m2 [facility] Oxygen saturation in Arterial blood by Pulse oximetry 2022-05-08 19:04:00 100 /min [facility] Systolic blood pressure 2022-03-31 16:36:00 126 mm[Hg] [facility] Diastolic blood pressure 2022-03-31 16:36:00 86 mm[Hg] [facility] Heart rate 2022-03-31 16:36:00 76 /min [facility] Body temperature 2022-03-31 16:36:[address] [facility] Respiratory rate 2022-03-31 16:36:00 16 /min [facility] Body height 2022-03-31 16:36:00 157.5 cm [facility] Body weight 2022-03-31 16:36:00 55.702 kg [facility] BMI 2022-03-31 16:36:00 22.46 kg/m2 [facility] BP Systolic 2022-07-14 11:21:00 123 [...] Date / Time Performed Performing Clinician Source XR CHEST 2 VW 2024-03-29 21:14:00 Jesus Garay [facility] C4 COMPLEMENT 2023-11-03 21:35:00 Shea Sebastian [facility] THYROID STIMULATING HORMONE 2023-11-03 21:35:[address] [facility] URINALYSIS 2023-11-03 21:35:00 Shea Sebastian [facility] VITAMIN D, 25-OH 2023-11-03 21:35:00 Shea Sebastian [facility] ANTI-CENTROMERE B 2023-11-03 21:35:[address] [facility] ANTI-SSA(RO) 2023-11-03 21:35:00 Shea Sebastian [facility] ANTI-DOUBLE STRANDED DNA 2023-11-03 21:35:[address] [facility] XR CERVICAL SPINE 2 2023-10-01 21:45:[address] [facility] ASSIGNMENT OF BENEFITS 2023-06-15 18:19:46 Docto r Unassigned, [place] [facility] URINALYSIS 2022-11-04 15:50:00 [facility] BASIC METABOLIC PANEL (NA, K, CL, CO2, GLUCOSE, BUN, CREATININE, CA) 2022-11-04 15:30:[address] [facility] CBC WITH DIFF 2022-11-04 15:30:00 Marciano Wayne [facility] CONSENT/REFUSAL FOR DIAGNOSIS AND TREATMENT 2022-11-04 13:58:51 Doctor Unassigned, [place] [facility] US PELVIS COMPLETE WITH TRANSVAGINAL 2022-10-28 18:57:[address] [facility] CBC WITH DIFF 2022-10-15 21:08:00 Felisa Davis [facility] PATIENT QUESTIONNAIRE 2022-08-18 06:01:00 Doctor Unassigned, [place] [facility] CBC WITH DIFF 2022-05-23 10:24:00 Kennedy Young Un iversity [facility] CBC WITH DIFF 2022-05-22 10:42:00 [facility] AND DRAINAGE ORAL CAVITY 2022-05-21 15:35:[address] [facility] TOOTH EXTRACTION 2022-05-21 15:35:[address] [facility] INCISION AND DRAINAGE ORAL CAVITY 2022-05-21 15:35:[address] [facility] TOOTH EXTRACTION 2022-05-21 15:35:[address] [facility] CBC WITH DIFF 2022-05-21 09:58:00 [facility] WITH DIFF 2022-05-21 09:58:00 [facility]MANDIBLE W CONTRAST 2022-05-21 01:00:[address] [facility] CT MAXILLOFACIAL/MANDIBLE W CONTRAST 2022-05-21 01:00:[address] [facility] COMP. METABOLIC PANEL (78033) 2022-05-21 00:37:[address] [facility] CBC WITH DIFF 2022-05-21 00:37[facility] METABOLIC PANEL (92830) 2022-05-21 00:37:[address] [facility] CBC WITH DIFF 2022-05-21 00:37:[address] [facility] CONSENT/REFUSAL FOR DIAGNOSIS AND TREATMENT 2022-05-20 23:16:33 Doctor Unassigned, [place] [facility] CONSENT/REFUSAL FOR DIAGNOSIS AND TREATMENT 2022-05-20 23:16:33 Doctor Unassigned, [place] [facility] DISCLOSURE AND CONSENT, MEDICAL AND SURGICAL PROCEDURES 2022-05-08 05:01:00 Doctor Unassigned, [place] [facility] REFERRAL- REQUEST/RESPONSE 2022-04-24 05:01:00 Doctor Unassigned, [place] [facility] Plan of Care Planned Activity Planned Date Details Comments Source Goal Plan of Care Note [code = 30590-9] Goal Plan of Care Note [code = 49617-5] Goal Plan of Care Note [code = 70030-6] Goal Plan of Care Note [code = 46494-3] Goal Plan of Care Note [code = 97274-6] Goal Plan of Care Note [code = 13701-9] Goal Plan of Care Note [code = 70544-7] Goal Plan of Care Note [code = 52971-7] Goal Plan of Care Note [code = 31750-6] Goal Plan of Care Note [code = 75217-1] Goal Plan of Care Note [code = 75262-4] Goal Plan of Care Note [code = 79242-0] Goal Plan of Care Note [code = 26154-0] Goal Plan of Care Note [code = 80687-2] Goal Plan of Care Note [code = 98116-1] Goal Plan of Care Note [code = 62033-9] Goal Plan of Care Note [code = 89669-6] Goal Plan of Care Note [code = 82448-9] Goal Plan of Care Note [code = 96228-5] Goal Plan of Care Note [code = 20746-2] Goal Plan of Care Note [code = 86740-0] Encounters Start Date/Time End Date/Time Encounter Type Admission Type Attending [facility] Facility Care Department Encounter ID Source 2021-12-24 13:43:15 Outpatient ANTONY PACHECO [facility] COORDIN[facility] [id number] [facility] 2021-12-23 07:21:46 Outpatient ANTONY PACHECO [facility] COORDINATOR [id number] [facility] 2024-04-21 00:00:00 2024-05-28 18:24:33 Patient Secure Msg Doctor Unassigned, [place] Doctor Unassigned, [place] [facility] 1.2.840.114 350.1.13.10 4.2.7.2.686 [id number] [facility] 2024-04-25 11:15:00 2024-04-25 11:15:00 Outpatient R [facility] [id number] [facility] 2024-04-22 15:30:00 2024-04-22 15:30:00 Outpatient R HUGH SYLVESTER ELISHA [facility] [id number] [facility] 2024-04-21 12:30:00 2024-04-21 12:30:00 Outpatient R ZEV VILLA [facility] [id number] [facility] 2024-04-04 00:00:00 2024-04-04 00:00:00 Outpatient R ELIU BARNES [facility] [id number] [facility] 2024-03-29 16:05:23 2024-03-29 23:59:00 Hospital Encounter Eliu Barnes [facility] PRIMARY [facility]ARE PAVILLION 1.2.840.114 350.1.13.10 4.2.7.2.686 [id number] [facility] 2024-03-29 15:45:00 2024-03-29 16:00:00 [place] [employer] Visit Pcp-Lab Eliu Barnes Pcp-Lab [facility]AV[facility] 1.2.840.114 350.1.13.10 4.2.7.2.686 [id number] [facility] 2024-03-29 14:30:00 2024-03-29 15:31:45 Outpatient R ELIU BARNES [facility] [id number] [facility] 2024-03-29 14:30:00 2024-03-29 15:31:45 Office Visit Jesus Garay Zuleica [facility] PR[facility]ARE PAVILLION 1.2.840.114 350.1.13.10 4.2.7.2.686 [id number] [facility] 2024-03-29 00:00:00 2024-03-29 10:15:31 Telephone Jesus Garay [facility]AV[facility] 1.2.840.114 350.1.13.10 4.2.7.2.686 [id number] [facility] 2024-03-23 00:00:00 2024-03-23 11:03:37 Patient Outreach Daphnie Dawson Michelle J [facility]ARE PAV[facility] 1.2.840.114 350.1.13.10 4.2.7.2.686 [id number] [facility] 2024-03-22 13:40:00 2024-03-22 15:33:34 Outpatient R LEN THURSTON [facility] [id number] [facility] 2024-03-22 13:40:00 2024-03-22 15:33:34 Office Visit Jesus Garay [facility] PRIMARY CARE PAVILLION 1.2.840.114 350.1.13.10 4.2.7.2.686 [id number] [facility] 2024-03-21 08:00:00 2024-03-21 08:00:00 Outpatient R NILA JOVEL [facility] [id number] [facility] 2024-02-05 14:15:00 2024-02-05 14:15:00 Outpatient SHEA LEWIS LAURA [facility] [id number] [facility] 2024-02-04 15:15:00 2024-02-04 15:15:00 Outpatient SHEA LEWIS LAURA [facility] [id number] [facility] 2024-01-12 13:30:00 2024-01-12 13:30:00 Outpatient R ZEV VILLA [facility] [id number] [facility] 2023-12-07 11:00:00 2023-12-07 11:00:00 Outpatient JIMMY NIELSON [facility] [id number] [facility] 2023-11-24 00:00:00 2023-11-24 00:00:00 Telephone Zev Villa [facility] MULTISPEC IALTY CENTER AND [facility] 1.840.114 350.1.13.10 4.2.7.2.686 [id number] [facility] 2023-11-19 15:30:00 2023-11-19 15:30:00 Outpatient JIMMY NIELSON [facility] [id number] [facility] 2023-11-17 00:00:00 2023-11-17 00:00:00 Outpatient ZEV JULIEN [facility] [id number] [facility] 2023-11-13 00:00:00 2023-11-13 00:00:00 Telephone [facility] 1.840.114 350.1.13.10 4.2.7.2.686 [id number] [facility] 2023-11-10 10:00:00 2023-11-10 10:48:16 Outpatient R ZEV VILLA [facility] [id number] [facility] 2023-11-10 10:00:00 2023-11-10 10:48:16 [facility] 1.840.114 350.1.13.10 4.2.7.2.686 [id number] [facility] 2023-11-10 00:00:00 2023-11-10 00:00:00 Telephone [facility] 1.840.114 350.1.13.10 4.2.7.2.686 [id number] [facility] 2023-11-03 16:45:00 2023-11-03 17:00:00 [place] [employer] Visit Pcp-Lab Shea Sebastian [facility] PRIMARY CARE PAVILLION 1.840.114 350.1.13.10 4.2.7.2.686 [id number] [facility] 2023-11-03 16:45:00 2023-11-03 16:45:00 Outpatient R SHEA SEBASTIAN LAURA [facility] [id number] [facility] 2023-11-03 16:15:00 2023-11-03 16:24:45 Office Visit Shea Sebastian [facility]ARE PAVILLION 1.2840.114 350.1.13.10 4.2.7.2.686 [id number] [facility] 2023-10-26 00:00:00 2023-10-26 00:00:00 Telephone Song Chang [facility] MULTISPEC I[facility]TY [facility] 1.0.114 350.1.13.10 4.2.7.2.686 [id number] [facility] 2023-10-01 15:26:42 2023-10-01 23:59:00 Hospital Encounter Song Chang [facility] 1.0.114 350.1.13.10 4.2.7.2.686 [id number] [facility] 2023-10-01 15:00:00 2023-10-01 15:15:00 [place] [employer] Visit Vtc-Lab Song [facility] 1..114 350.1.13.10 4.2.7.2.686 [id number] [facility] 2023-10-01 13:45:00 2023-10-01 14:52:53 Outpatient R SONG CHANG PETER [facility] [id number] [facility] 2023-10-01 13:45:00 2023-10-01 14:52:53 Office Visit Song Chang [facility] MULTISPEC [facility] 1.0.114 350.1.13.10 4.2.7.2.686 [id number] [facility] 2023-07-14 09:00:00 2023-07-14 09:00:00 [id number] 2023-07-13 08:00:00 2023-07-13 08:48:11 [id number] 2023-07-13 08:00:00 2023-07-13 08:48:[address] [facility] MEDICAL OFFICE BUILDING 1..840.114 350.1.13.10 4.2.7.2.686 [id number] [facility] 2023-06-15 14:00:00 2023-06-15 14:35:44 [facility] [id number] [facility] 2023-06-15 14:00:00 2023-06-15 14:35:[address] [facility] MEDICAL OFFICE BUILDING 1.840.114 350.1.13.10 4.2.7.2.686 [id number] [facility] 2023-06-15 00:00:00 2023-06-15 00:00:00 Orders Only Doctor Unassigned, [place] [facility] 1.840.114 350.1.13.10 4.2.7.2.686 [id number] [facility] 2023-05-18 14:30:00 2023-05-18 14:30:00 Outpatient R SHANDRA CANTU [facility] [id number] [facility] 2023-04-01 00:00:00 2023-04-01 00:00:00 Patient Secure Msg Doctor Unassigned, [place] [facility] 1.2840.114 350.1.13.10 4.2.7.2.686 [id number] [facility] 2023-03-31 00:00:00 2023-03-31 00:00:00 Patient Secure Msg Doctor Unassigned, [place] [facility] 1.2840.114 350.1.13.10 4.2.7.2.686 [id number] [facility] 2022-11-14 00:00:00 2022-11-14 00:00:00 Patient Secure Msg Doctor Unassigned, [place] [facility] PATIENT TRANSPORT OFFICER [facility] 1.2840.114 350.1.13.10 4.2.7.2.686 [id number] [facility] 2022-11-07 13:00:00 2022-11-07 13:54:22 Outpatient R MARINO WILLS [facility] [id number] [facility] 2022-11-07 13:00:00 2022-11-07 13:54:22 Office Visit Pgy3 Marino Wills [facility] 1.0.114 350.1.13.10 4.2.7.2.686 [id number] [facility] 2022-11-04 09:06:00 2022-11-04 15:02:00 Emergency X MARCIANO WAYNE [facility] ERT [id number] [facility] 2022-11-04 09:06:00 2022-11-04 15:02:00 [facility] 1.0.114 350.1.13.10 4.2.7.2.686 [id number] [facility] 2022-11-03 00:00:00 2022-11-03 00:00:[address] [facility] 1.840.114 350.1.13.10 4.2.7.2.686 [id number] [facility] 2022-10-28 13:07:55 2022-10-28 23:59:00 [id number] 2022-10-28 13:07:55 2022-10-28 23:59:00 Hospital Encounter [facility] 1..114 350.1.13.10 4.2.7.2.686 [id number] [facility] 2022-10-15 13:30:00 2022-10-15 15:10:01 Outpatient R [facility]AN [facility] [id number] [facility] 2022-10-15 13:30:00 2022-10-15 15:10:01 Office Visit [facility] 1.840.114 350.1.13.10 4.2.7.2.686 [id number] [facility] 2022-08-18 11:30:00 2022-08-18 11:45:00 [place] [employer] Visit Pcp-Jimmy Paris [facility] PRIMARY CARE PAVILLION 1.840.114 350.1.13.10 4.2.7.2.686 [id number] [facility] 2022-08-18 09:40:00 2022-08-18 10:58:45 Outpatient R JIMMY CARROLL [facility] [id number] [facility] 2022-08-18 09:40:00 2022-08-18 10:58:45 Office Visit Sharan Benjamin Samuel E [facility] PRIMARY CARE PAVILLION 1.840.114 350.1.13.10 4.2.7.2.686 [id number] [facility] 2022-08-18 00:00:00 2022-08-18 00:00:00 Orders Only Doctor Unassigned, [place] [facility] 1.2840.114 350.1.13.10 4.2.7.2.686 [id number] [facility] 2022-07-22 14:00:34 2022-07-22 14:00:34 Outpatient [facility] [id number] Kp Chatman 2022-07-18 00:00:00 2022-07-18 00:00:00 Nurse Triage Katy Hadley [facility] 1.2840.114 350.1.13.10 4.2.7.2.686 [id number] [facility] 2022-07-18 00:00:00 2022-07-18 00:00:00 [facility] 1.2840.114 350.1.13.10 4.2.7.2.686 [id number] [facility] 2022-07-14 11:05:24 2022-07-14 11:05:24 Outpatient [facility] [id number] Kp Chatman 2022-07-14 00:00:00 2022-07-14 00:00:00 Outpatient Visit [id number] 2022-07-01 00:00:00 2022-07-01 00:00:00 Patient Outreach Simeon Skinner 1.2840.114 350.1.13.10 4.2.7.2.686 [id number] [facility] 2022-06-16 00:00:00 2022-06-16 00:00:00 Patient Outreach Simeon Skinner 1.2.840.114 350.1.13.10 4.2.7.2.686 [id number] [facility] 2022-06-03 10:00:00 2022-06-03 10:23:42 Outpatient R SURESH BONILLA [facility] [id number] [facility] 2022-06-03 10:00:00 2022-06-03 10:23:42 Office Visit Suresh Bonilla [facility] 1.20.114 350.1.13.10 4.2.7.2.686 [id number] [facility] 2022-05-26 00:00:00 2022-05-26 00:00:00 Telephone Suresh Bonilla [facility] NIR [place] 1.284.114 350.1.13.10 4.2.7.2.686 [id number] [facility] 2022-05-20 18:17:00 2022-05-23 13:28:00 Outpatient X SURESH BONILLA [facility] MARLEY [id number] [facility] 2022-05-20 18:17:00 2022-05-23 13:28:[address] [facility] 1.2.114 350.1.13.10 4.2.7.2.686 [id number] [facility] 2022-05-23 00:00:00 2022-05-23 00:00:00 Transition of Care Peggy Benitez 1.2840.114 350.1.13.10 4.2.7.2.686 [id number] [facility] 2022-05-21 10:24:00 2022-05-21 11:48:[address] [facility] 1.20.114 350.1.13.10 4.2.7.2.686 [id number] [facility] 2022-05-20 00:00:00 2022-05-20 00:00:00 Telephone Chau Carver [facility] [place] 1.2.840.114 350.1.13.10 4.2.7.2.686 [id number] [facility] 2022-05-08 14:00:00 2022-05-08 14:30:00 Office Visit Chau Carver [facility] 1.2840.114 350.1.13.10 4.2.7.2.686 [id number] [facility] 2022-05-08 14:00:00 2022-05-08 14:00:00 Outpatient R CHAU CARVER [facility] [id number] [facility] 2022-05-08 00:00:00 2022-05-08 00:00:00 Orders Only Doctor Unassigned, [place] [facility] 1.2840.114 350.1.13.10 4.2.7.2.686 [id number] [facility] 2022-04-29 10:00:00 2022-04-29 10:00:00 Outpatient SURESH MARSHALL [facility] [id number] [facility] 2022-04-24 00:00:00 2022-04-24 00:00:00 Orders Only Doctor Unassigned, [place] [facility] 1.2840.114 350.1.13.10 4.2.7.2.686 [id number] [facility] 2022-03-31 11:15:00 2022-03-31 11:48:34 Office Visit Felisa Davis [facility] 1.20.114 350.1.13.10 4.2.7.2.686 [id number] [facility] 2022-03-31 11:15:00 2022-03-31 11:48:34 Outpatient R RYAN FELISA [facility] [id number] [facility] 2022-03-31 11:15:00 2022-03-31 11:15:00 Outpatient R FELISA DAVIS [facility] [id number] [facility] 2022-01-25 00:00:00 2022-01-25 00:00:00 Telephone Antony Joshua [facility] 1.2.840.114 350.1.13.10 4.2.7.2.686 [id number] [facility] 2022-01-23 05:56:00 2022-01-24 16:20:00 Outpatient R ANTONY JOSHUA [facility] HEALTH UNIT COORDINATOR [id number] [facility] 2022-01-23 05:56:00 2022-01-24 16:20:00 Hospital Encounter [facility] 1..840.114 350.1.13.10 4.2.7.2.686 [id number] [facility] 2022-01-23 07:00:00 2022-01-23 12:15:00 Surgery [facility] 1.2.840.114 350.1.13.10 4.2.7.2.686 [id number] [facility] 2022-01-23 00:00:00 2022-01-23 00:00:00 Orders Only Doctor Unassigned, [place] [facility] 1.2.840.114 350.1.13.10 4.2.7.2.686 [id number] [facility] 2022-01-21 00:00:00 2022-01-21 00:00:[address] [facility] 1.2.840.114 350.1.13.10 4.2.7.2.686 [id number] [facility] 2022-01-20 00:00:00 2022-01-20 00:00:00 Telephone Arianna Locke [facility] 1.2.840.114 350.1.13.10 4.2.7.2.686 [id number] [facility] 2022-01-16 00:00:00 2022-01-16 00:00:00 [facility] 1.2.840.114 350.1.13.10 4.2.7.2.686 [id number] [facility] 2022-01-15 07:44:45 2022-01-15 23:59:00 Outpatient R JEWEL [facility] [id number] [facility] 2022-01-15 07:43:28 2022-01-15 07:43:28 Outpatient R JEWEL [facility] [id number] [facility] 2022-01-14 08:45:00 2022-01-14 09:00:00 Laboratory Only Only, Adc Test Jewel [facility] 1.2.840.114 350.1.13.10 4.2.7.2.686 [id number] [facility] 2022-01-14 08:45:00 2022-01-14 08:45:00 Outpatient R JEWEL [facility] [id number] [facility] 2022-01-10 00:00:00 2022-01-10 00:00:00 Patient Outreach Melanie LouAna Cristina BERKOWITZY KATHERINEJOHNATHAN 1..840.114 350.1.13.10 4.2.7.2.686 [id number] [facility] 2021-12-27 13:00:00 2021-12-27 13:00:00 Outpatient [facility] [id number] [facility] 2021-12-27 13:00:00 2021-12-27 13:00:00 Outpatient R [facility] [id number] [facility] 2021-12-27 09:00:00 2021-12-27 09:00:00 [id number] 2021-12-25 10:00:00 2021-12-25 10:29:11 Office Visit Jewel [facility] 1.840.114 350.1.13.10 4.2.7.2.686 [id number] [facility] 2021-12-25 10:00:00 2021-12-25 10:29:11 [id number] 2021-12-25 10:00:00 2021-12-25 10:00:00 [id number] 2021-12-22 00:00:00 2021-12-22 00:00:00 Patient Secure Msg [facility] 1.840.114 350.1.13.10 4.2.7.2.686 [id number] [facility] 2021-12-22 00:00:00 2021-12-22 00:00:00 [facility] 1.84.114 350.1.13.10 4.2.7.2.686 [id number] [id number] [facility] 2021-12-22 00:00:00 2021-12-22 00:00:00 [facility] 1.84.114 350.1.13.10 4.2.7.2.686 [id number] [facility] 2021-12-18 00:00:00 2021-12-18 00:00:00 Patient Secure Msg Doctor Unassigned, [place] [facility] 1.2840.114 350.1.13.10 4.2.7.2.686 [id number] [facility] 2021-12-11 15:30:00 2021-12-11 15:30:00 Outpatient R ANTONY JOSHUA [facility] HE[facility] COORDINATOR [id number] [facility] 2021-12-09 10:45:00 2021-12-09 11:00:00 Laboratory Only Only, Adc Test Shawn Agudelo [facility] 1.2840.114 350.1.13.10 4.2.7.2.686 [id number] [facility] 2021-12-09 10:45:00 2021-12-09 10:45:00 Outpatient SHAWN LORA [facility] [id number] [facility] 2021-12-09 10:45:00 2021-12-09 10:45:00 Outpatient Shari SOPHIA CABELL [facility] [id number] [facility] 2021-12-09 00:00:00 2021-12-09 00:00:00 Telephone Carlos Theodora [facility] 1.2840.114 350.1.13.10 4.2.7.2.686 [id number] [facility] 2021-12-06 15:32:00 2021-12-06 17:11:00 Emergency X SENA JONES [facility] ERT [id number] [facility] 2021-12-06 15:32:00 2021-12-06 17:11:00 Emergency BobbySena [facility] 1.2840.114 350.1.13.10 4.2.7.2.686 [id number] [facility] 2021-12-06 15:32:00 2021-12-06 17:11:00 Emergency X SENA JONES [facility] ERT [id number] [facility] 2021-12-06 15:32:00 2021-12-06 15:32:00 Emergency X SENA JONES [facility] ERT [id number] [facility] 2021-12-06 13:10:00 2021-12-06 13:40:00 Office Visit Alejandro Benites Unknown, Attending [facility] 1..840.114 350.1.13.10 4.2.7.2.686 [id number] [facility] 2021-12-06 13:10:00 2021-12-06 13:10:00 Outpatient R UNKNOWN, ATTENDING [facility] [id number] [facility] 2021-12-06 13:10:00 2021-12-06 13:10:00 Outpatient R UNKNOWN, ATTENDING [facility] [id number] [facility] 2021-12-06 13:10:00 2021-12-06 13:10:00 Outpatient R SON SELBY [facility] [id number] [facility] 2021-12-06 00:00:00 2021-12-06 00:00:00 Case Management Montse Shane [facility] 1..840.114 350.1.13.10 4.2.7.2.686 [id number] [facility] 2021-12-05 04:22:00 2021-12-05 04:22:00 Outpatient Leonid CORTES [facility] [id number] [facility] 2021-12-05 00:00:00 2021-12-05 00:00:00 [facility] 1..840.114 350.1.13.10 4.2.7.2.686 [id number] [facility] 2021-12-05 00:00:2021-12-05 00:00:00 Telephone [facility] 1.2.840.114 350.1.13.10 4.2.7.2.686 [id number] [id number] [facility] 2021-11-29 13:00:00 2021-11-29 13:00:00 Outpatient R BENTLEY HERRON [facility] [id number] [facility] 2021-11-28 00:00:00 2021-11-28 00:00:00 Prep For Surgery [facility] 1.2.840.114 350.1.13.10 4.2.7.2.686 [id number] [facility] 2021-11-28 00:00:00 2021-11-28 00:00:00 Telephone Suleiman [facility] 1.2840.114 350.1.13.10 4.2.7.2.686 [id number] [facility] 2021-11-22 09:07:00 2021-11-22 16:38:00 Outpatient R [facility]UEL [facility] CO[facility] [id number] [facility] 2021-11-22 09:07:00 2021-11-22 16:38:00 Hospital Encounter [facility] 1.2840.114 350.1.13.10 4.2.7.2.686 [id number] [facility] 2021-11-22 11:05:00 2021-11-22 13:43:00 Surgery Miguel [facility] 1.2.840.114 350.1.13.10 4.2.7.2.686 [id number] [facility] 2021-11-22 00:00:00 2021-11-22 00:00:00 [facility].114 350.1.13.10 4.2.7.2.686 [id number] [facility] 2021-11-21 13:15:00 2021-11-21 13:18:56 Outpatient EMILY NAVAS [facility] [id number] [facility] 2021-11-21 13:15:00 2021-11-21 13:18:56 Laboratory Only Only, [facility] Test Emily Rivera [facility] 1.2.840.114 350.1.13.10 4.2.7.2.686 [id number] [facility] 2021-11-21 09:00:00 2021-11-21 09:00:00 Outpatient EMILY NAVAS [facility] [id number] [facility] 2021-11-18 11:41:00 2021-11-18 17:07:00 Emergency X SABINO DUMONT [facility] ERT [id number] [facility] 2021-11-18 11:41:00 2021-11-18 17:07:00 Emergency Sabino Dumont [facility] 1.2840.114 350.1.13.10 4.2.7.2.686 [id number] [facility] 2021-11-12 13:00:00 2021-11-12 15:18:33 Office Visit Pgy3 Felisa Davis [facility] 1.2840.114 350.1.13.10 4.2.7.2.686 [id number] [facility] 2021-11-12 13:00:00 2021-11-12 15:18:33 Outpatient FELISA HUTCHINSON [facility] [id number] [facility] 2021-11-12 13:00:00 2021-11-12 13:00:00 [facility] [id number] [facility] 2021-11-12 13:00:00 2021-11-12 13:00:00 Outpatient R RYANNATALIO CANTRELLANA [facility] [id number] [facility] 2021-11-12 00:00:00 2021-11-12 00:00:00 Orders Only Doctor Unassigned, [place] [facility] 1..114 350.1.13.10 4.2.7.2.686 [id number] [facility] 2021-10-29 00:00:00 2021-10-29 00:00:00 [facility] 350.1.13.10 4.2.7.2.686 [id number] [facility] 2021-10-24 13:15:00 2021-10-24 15:47:39 Outpatient R CASTILLO FRANKLYN [facility] [id number] [facility] 2021-10-24 13:15:00 2021-10-24 15:47:39 Outpatient R CASTILLOFRANKLYN SR [facility] [id number] [facility] 2021-10-24 13:15:00 2021-10-24 15:47:39 Outpatient R FRANKLYN CASTILLO [facility] [id number] [facility] 2021-10-24 13:15:00 2021-10-24 15:47:39 Office Visit Pgy2 RyanFelisa Otto [facility] 1.114 350.1.13.10 4.2.7.2.686 [id number] [facility] 2021-10-24 13:15:00 2021-10-24 13:15:00 Outpatient R FRANKLYN CASTILLO [facility] [id number] [facility] 2021-10-24 00:00:00 2021-10-24 00:00:00 Telephone Tru [facility] 1.114 350.1.13.10 4.2.7.2.686 [id number] [facility] 2021-10-09 13:40:00 2021-10-10 14:24:00 Outpatient X MARINO WILLS [facility] HEALTH UNIT COORDINATOR [id number] [facility] 2021-10-09 13:40:00 2021-10-10 14:24:00 Outpatient X MARINO WILLS [facility] HEALTH UNIT COORDINATOR [id number] [facility] 2021-10-09 13:40:00 2021-10-10 14:24:00 Emergency AuAlma Rosa roth Perry [facility] 1.840.114 350.1.13.10 4.2.7.2.686 [id number] [facility] 2021-10-10 00:00:00 2021-10-10 00:00:[address] [facility] 1.0.114 350.1.13.10 4.2.7.2.686 [id number] [facility] 2021-10-10 00:00:00 2021-10-10 00:00:00 [facility] 1.840.114 350.1.13.10 4.2.7.2.686 [id number] [facility] 2021-07-15 00:00:00 2021-07-15 00:00:00 Orders Only Doctor Unassigned, [place] [facility] 1.2840.114 350.1.13.10 4.2.7.2.686 [id number] [facility] 2021-07-02 00:00:00 2021-07-02 00:00:00 Telephone Pcp, Patient Does Not Have A [facility] 1.2840.114 350.1.13.10 4.2.7.2.686 [id number] [facility] 2020-02-22 12:29:09 2020-02-22 15:00:00 Emergency Curt Kemp [facility] 1.2.840.114 350.1.13.10 4.2.7.2.686 [id number] 2020-02-22 12:29:09 2020-02-22 15:00:00 Emergency Curt Kemp [facility] 1.2.840.114 350.1.13.10 4.2.7.2.686 [id number] [facility] 2020-02-22 12:29:09 2020-02-22 12:29:09 Emergency X Curt KEMP [facility] ERT [id number] [facility] 2020-01-30 08:36:00 2020-01-30 08:36:00 Outpatient Lezak_Kayla [facility] [id number] [facility] 2020-01-28 01:01:00 2020-01-28 01:01:00 Outpatient Lezak_Kayla [facility] [id number] [facility] 2019-12-02 11:44:00 2019-12-02 11:44:00 Outpatient Lezak_Kayla [facility] [id number] [facility] 2019-01-07 10:23:00 2019-01-07 12:27:00 Outpatient E ZEV PAEZ [facility] [id number] [facility] 2018-12-04 10:20:00 2018-12-04 15:57:00 Outpatient E KEYUR PUENTE [facility] [id number] [facility] 2018-11-11 04:05:00 2018-11-11 06:00:00 Outpatient E MARKELL HUNT [facility] [id number] [facility] 2018-10-12 06:24:00 2018-10-12 08:08:00 Outpatient E PAULINE REDDY [facility] [id number] [facility] 2018-09-30 13:45:00 2018-09-30 14:12:00 Outpatient E MELANIE LAI [facility] [id number] [facility] 2018-09-04 17:32:00 2018-09-04 18:30:00 Outpatient E MELANIE LAI [facility] [id number] [facility] 2018-08-19 08:43:00 2018-08-19 10:15:00 Outpatient E HANY LAWRENCE [facility] [id number] [facility] 2018-08-08 13:34:00 2018-08-08 16:43:00 Outpatient E DARÍO CHAMBERS [facility] [id number] [facility] Results Test Description Test Time Test Comments Results Resul t Comments Source XR CHEST 2 VW 2024-03-17 4 01:20:16 EXAM: XR CHEST 2 VW COMPARISON: Chest x-ray 12/06/2021 HISTORY: SOB FINDINGS: Lungs: The lung volumes are ?normal. No focal opacities. No pleural abnormalities are detected. Heart/Mediastinum: The cardiomediastinal silhouette is unremarkable. Bones and soft tissues: No focal osseous lesions or acute osseous findingsare detected. [facility])2023-11-04 16:29:12* Test Item Value Reference Range Interpretation Comme nts Anti-Neely (test code = 1308950245) Negative Negative PARTH (test code = PARTH) Positive - Antibod y detected.Negative - No antibody detected. Lab Interpretation (test code = 92626-2) Normal [facility]-[id number] 16:29:12* Test Item Value Reference Range Interpretation Comme nts Anti-Ribonucleoprotein (test code = 2539395822) Negative Negative PARTH (test code = PARTH) Positive - Antibod y detected.Negative - No antibody detected. Lab Interpretation (test code = 73111-7) Normal [facility] [id number] 16:29:12* Test Item Value Reference Range Interpretation Comme nts ANTI-CENTR (test code = 6731597535) Negative Negative PARTH (test code = PARTH) Positive - Antibod y detected.Negative - No antibody detected. Lab Interpretation (test code = 14151-2) Normal [facility]-[id number] 16:29:12* Test Item Value Reference Range Interpretation Comme nts ANTI-SCL70 (test code = 5979279756) Negative Negative PARTH (test code = PARTH) Positive - Antibod y detected.Negative - No antibody detected. Lab Interpretation (test code = 76874-8) Normal [facility]RO)2023-11-04 16:29:12* Test Item Value Reference Range Interpretation Comme nts ANTI-SSA(RO) (test code = 2590228101) Positive Negative A PARTH (test code = PARTH) Positive - Antibod y detected.Negative - No antibody detected. Lab Interpretation (test code = 19094-3) Abnormal [facility]2023-11-04 16:29:12* Test Item Value Reference Range Interpretation Comme nts Anti-SSB(LA) (test code = 0272241577) Negative Negative PARTH (test code = PARTH) Positive - Antibod y detected.Negative - No antibody detected. Lab Interpretation (test code = 64491-5) Normal [facility] Fdmgdxtjox3054-02-78 16:28:24* Test Item Value Reference Range Interpretation Comme nts C3 (test code = 8673302322) 110 mg/dL 86-184 Lab Interpretation (test cod e = 80063-8) Normal [facility] Vpjhsffwgt4319-66-06 16:28:24* Test Item Value Reference Range Interpretation Comme nts C4 (test code = 7942806283) 19 mg/dL 20-59 L Lab Interpretation (test cod e = 76308-8) Abnormal [facility] HospitalThyroid Stimulating [id number] 01:19:27 * Test Item Value Reference Range Interpretation Comme nts TSH (test code = 9399192693) 0.95 0.45-4.70 Biotin has been reported to cause a negative bias, interpret results relative to patient's use of biotin. Lab Interpretation (test code = 74358-4) Normal [facility] HospitalVitamin D, [id number] 00:57:43* Test Item Value Reference Range Interpretation Comme nts VIT D 25OH (test code = 71016-8) 37 ng/mL 25-80 PARTH (test code = PARTH) Deficiency: <20 ng/mLInsufficiency : 20-24 ng/mLOptimal: 25-80 ng/mL Lab Interpretation (test code = 27106-8) Normal [facility] 2 [id number] 22:34:22XR CERVICAL SPINE 2 VW HISTORY: Female 43 years neck pain COMPARISON: None FINDINGS: The vertebral bodies are normal in height and in normal alignment. Theatlantodental space is normal. The prevertebral soft tissues areunremarkable. Diffuse mild degenerative changes, most pronounced at the C6-C7 level. Noacute osseous abnormality.[facility]OLIC PANEL (NA, K, CL, CO2, GLUCOSE, BUN, CREATININE, CA)2022-11-04 15:48:28* Test Item Value Reference Range Interpretation Comme nts NA (test code = 5975887806) 137 mmol/L 135-145 K (test code = 0832716941) 4.1 mmol/L 3.5-5.0 CL (test code = 7983395036) 106 mmol/L 98-108 CO2 TOTAL (test code = 7344945664) 23 mmol/L 23-31 AGAP (test code = 8678897980) 8 2-16 BUN (test code = 3489599848) 12 mg/dL 7-23 GLUCOSE (test code = 2600321152) 109 mg/dL 70-110 CREATININE (test code = 8332032852) 0.44 mg/dL 0.50-1.04 L CALCIUM (test code = 5325669919) 8.8 mg/dL 8.6-10.6 eGFR (test code = 9242414545) 156.8 mL/min/1.73m2 PARTH (test code = PARTH) [...] imaging tests). Lab Interpretation (test code = 58578-9) Abnormal [facility] WITH [id number] 15:38:28* Test Item Value Reference Range Interpretation Comme nts WBC (test code = 6690-2) 8.04 See_Comment [Automated [employer]] The system which generated this result transmitted reference range: 4.30 - 11.10 10*3/?L. The reference range was not used to interpret this result as normal/abnormal. RBC (test code = 789-8) 4.38 See_Comment [Automated [employer]] The system which generated this result transmitted [...] 34.1 g/dL 31.6-35.1 RDW-SD (test code = 19427-8) 42.8 fL 39.0-49.9 RDW-CV (test code = 788-0) 13.0 % 12.0-15.5 PLT (test code = 777-3) 288 See_Comment [Automated messa ge] The system which generated this result transmitted reference range: 166 - 358 10*3/?L. The reference range was not used to interpret this result as normal/abnormal. MPV (test code = 32079-4) 10.2 fL 9.5-12.9 NRBC/100 WBC (test code = 1236891130) 0.0 See_Comment [Automated me ssage] The system which generated this result transmitted reference range: 0.0 - 10.0 /100 WBCs. The reference range was not used to interpret this result as normal/abnormal. NRBC x10^3 (test code = 8717934887) See_Comment [Automated me ssage] The system which generated this result transmitted reference range: 10*3/?L. The reference range was not used to interpret this result as normal/abnormal. GRAN MAT (NEUT) % (test code = 770-8) 61.9 % IMM GRAN % (test code = 0859505719) 0.20 % LYMPH % (test code = 736-9) 29.1 % MONO % (test code = 5905-5) 7.1 % EOS % (test code = 713-8) 1.2 % BASO % (test code = 706-2) 0.5 % GRAN MAT x10^3(ANC) (test code = 9378142344) 4.97 10*3/uL 1.88-7.09 IMM GRAN x10^3 (test code = 8684054622) 0.00-0.06 LYMPH x10^3 (test code = 731-0) 2.34 10*3/uL 1.32-3.29 MONO x10^3 (test code = 742-7) 0.57 10*3/uL 0.33-0.92 EOS x10^3 (test code = 711-2) 0.10 10*3/uL 0.03-0.39 BASO x10^3 (test code = 704-7) 0.04 10*3/uL 0.01-0.07 [facility], THIRD [id number] 06:23:27* Test Item Value Reference Range Interpretation Comme [facility] TSH, THIRD GENERATION (test code = 2821) 1.220 UIU/ML 0.400-4.100 VITAMIN [id number] 06:23:27* Test Item Value Reference Range Interpretation Comme [facility] VITAMIN B-12 (test code = 2840) 312 PG/ML 200-950 VITAMIN D, 25 [id number] 04:36:56* Test Item Value Reference Range Interpretation [...] . . . . NG/ML 30-100 HEMOGLOBIN [id number] 03:56:42* Test Item Value Reference Range Interpretation Comme [facility] HEMOGLOBIN A1c (test code = 64518) 5.8 % 4.2-5.6 H UNLESS OTHERWISE INDICATED, ALL TESTING PERFORMED [facility] [address] [place] [address] SAS PROGRAMMER ANALYST: NAILA OATES M.D. CLIA NUMBER [id number] [facility] [place]. [id number] COMPREHENSIVE METABOLIC [id number] 03:29:09* Test Item Value Reference Range Interpretation Comme [facility] GLUCOSE (test code = 2217) 86 MG/DL 70-99 BUN (test code = 2208) 16 MG/DL 6-20 CREATININE (test code = 2214) 0.61 MG/DL 0.60-1.30 eGFR (2020 CKD-EPI) (test code = 01927) 115 ML/MIN/1.73 >60 CALC BUN/CREAT (test code = 2235) 26 RATIO 6-28 SODIUM (test code = 223) 138 MEQ/L 133-146 POTASSIUM (test code = 222) 4.1 MEQ/L 3.5-5.4 CHLORIDE (test code = 2215) 99 MEQ/L 95-107 CARBON DIOXIDE (test code = 2206) 23 MEQ/L 19-31 CALCIUM (test code = 2209) 9.6 MG/DL 8.5-10.5 PROTEIN, TOTAL (test code = 2229) 8.0 G/DL 6.1-8.3 ALBUMIN (test code = 2200) 5.1 G/DL 3.5-5.2 CALC GLOBULIN (test code = 2240) 2.9 G/DL 1.9-3.7 CALC A/G RATIO (test code = 223) 1.8 RATIO 1.0-2.6 BILIRUBIN, TOTAL (test code = 2206) 1.2 MG/DL See_Comment [Automated me ssage] The system which generated this result transmitted reference range: <=1.2. The reference range was not used to interpret this result as normal/abnormal. ALKALINE PHOSPHATASE (test code = 2203) 67 U/L 40-113 AST (test code = 2217) 22 U/L 9-40 ALT (test code = 221) 30 U/L 5-40 CBC W/AUTO DIFF WITH [id number] 02:24:23* Test Item Value Reference Range Interpretation [...] = 1065) 0.0 /100 WBC'S See_Comment [Automated [employer]] The system which generated this result transmitted [...] 0.00-0.10 ABS NUCLEATED RBCS (test code = 23688) 0.00 K/UL 0.00-0.11 CBC WITH [id number] 10:42:11* Test Item Value Reference Range Interpretation Comme nts WBC (test code = 6690-2) See_Comment [Automated [employer]] The system which generated this result transmitted reference range: 4.30 - 11.10 10*3/?L. The reference range was not used to interpret this result as normal/abnormal. RBC (test code = 789-8) See_Comment L [Automated [employer]] The system which generated this result transmitted [...] 33.3 g/dL 31.6-35.1 RDW-SD (test code = 12785-9) 45.3 fL 39-49.9 RDW-CV (test code = 788-0) 13.3 % 12-15.5 PLT (test code = 777-3) See_Comment [Automated [employer] ge] The system which generated this result transmitted reference range: 166 - 358 10*3/?L. The reference range was not used to interpret this result as normal/abnormal. MPV (test code = 81021-0) 10.5 fL 9.5-12.9 NRBC/100 WBC (test code = 2654920243) See_Comment [Automated [employer] ssage] The system which generated this result transmitted reference range: 0.0 - 10.0 /100 WBCs. The reference range was not used to interpret this result as normal/abnormal. NRBC x10^3 (test code = 5125854872) See_Comment [Automated [employer] ge] The system which generated this result transmitted reference range: 10*3/?L. The reference range was not used to interpret this result as normal/abnormal. GRAN MAT (NEUT) % (test code = 770-8) 37.8 % IMM GRAN % (test code = 3269458516) 0.50 % LYMPH % (test code = 736-9) 51.2 % MONO % (test code = 5905-5) 8.1 % EOS % (test code = 713-8) 1.9 % BASO % (test code = 706-2) 0.5 % GRAN MAT x10^3(ANC) (test code = 8332194158) 2.43 10*3/uL 1.88-7.09 IMM GRAN x10^3 (test code = 7825784031) 0.03 10*3/uL 0-0.06 LYMPH x10^3 (test code = 731-0) 3.29 10*3/uL 1.32-3.29 MONO x10^3 (test code = 742-7) 0.52 10*3/uL 0.33-0.92 EOS x10^3 (test code = 711-2) 0.12 10*3/uL 0.03-0.39 BASO x10^3 (test code = 704-7) 0.03 10*3/uL 0.01-0.07 Lab Interpretation (test code = 43409-4) Abnormal [facility] WITH [id number] 10:58:56* Test Item Value Reference Range Interpretation [...] 34.0 g/dL 31.6-35.1 RDW-SD (test code = 50907-1) 46.4 fL 39-49.9 RDW-CV (test code = 788-0) 13.7 % 12-15.5 PLT (test code = 777-3) See_Comment [Automated messa ge] The system which generated this result transmitted reference range: 166 - 358 10*3/?L. The reference range was not used to interpret this result as normal/abnormal. MPV (test code = 73047-5) 11.5 fL 9.5-12.9 NRBC/100 WBC (test code = 2245614349) See_Comment [Automated me ssage] The system which generated this result transmitted reference range: 0.0 - 10.0 /100 WBCs. The reference range was not used to interpret this result as normal/abnormal. NRBC x10^3 (test code = 6404195267) See_Comment [Automated messa ge] The system which generated this result transmitted reference range: 10*3/?L. The reference range was not used to interpret this result as normal/abnormal. GRAN MAT (NEUT) % (test code = 770-8) 69.6 % IMM GRAN % (test code = 7719275586) 0.20 % LYMPH % (test code = 736-9) 22.6 % MONO % (test code = 5905-5) 7.3 % EOS % (test code = 713-8) 0.1 % BASO % (test code = 706-2) 0.2 % GRAN MAT x10^3(ANC) (test code = 2189233655) 8.81 10*3/uL 1.88-7.09 H IMM GRAN x10^3 (test code = 5488593211) 0.03 10*3/uL 0-0.06 LYMPH x10^3 (test code = 731-0) 2.86 10*3/uL 1.32-3.29 MONO x10^3 (test code = 742-7) 0.93 10*3/uL 0.33-0.92 H EOS x10^3 (test code = 711-2) 0.03-0.39 L BASO x10^3 (test code = 704-7) 0.01-0.07 Lab Interpretation (test code = 50836-0) [facility] 01:01:28* Test Item Value Reference Range Interpretation Comme nts NA (test code = 5184869074) 139 mmol/L 135-145 K (test code = 7037231601) 3.6 mmol/L 3.5-5 CL (test code = 9773755061) 106 mmol/L 98-108 CO2 TOTAL (test code = 9977371272) 24 mmol/L 23-31 AGAP (test code = 9805537339) 2-16 BUN (test code = 6453268608) 10 mg/dL 7-23 GLUCOSE (test code = 7876201740) 96 mg/dL 70-110 CREATININE (test code = 2552559959) 0.44 mg/dL 0.5-1.04 L TOTAL BILI (test code = 8599411748) 1.0 mg/dL 0.1-1.1 CALCIUM (test code = 7454787773) 9.0 mg/dL 8.6-10.6 T PROTEIN (test code = 9255699702) 7.8 g/dL 6.3-8.2 ALBUMIN (test code = 0284515762) 4.6 g/dL 3.5-5 ALK PHOS (test code = 1065450939) 81 U/L 34-122 ALTv (test code = 1742-6) 11 U/L 5-35 AST(SGOT) (test code = 5463911264) 17 U/L 13-40 eGFR (test code = 1002483407) mL/min/1.73m2 PARTH (test code = PARTH) Association [...] imaging tests). Lab Interpretation (test code = 17803-6) Abnormal [facility]. METABOLIC PANEL (24500)2022-05-21 01:01:28* Test Item Value Reference Range Interpretation Comme nts NA (test code = 0399653155) 139 mmol/L 135-145 K (test code = 1160701581) 3.6 mmol/L 3.5-5 CL (test code = 5342837325) 106 mmol/L 98-108 CO2 TOTAL (test code = 4538272057) 24 mmol/L 23-31 AGAP (test code = 6235824236) 2-16 BUN (test code = 5649456714) 10 mg/dL 7-23 GLUCOSE (test code = 3106037444) 96 mg/dL 70-110 CREATININE (test code = 0183628585) 0.44 mg/dL 0.5-1.04 L TOTAL BILI (test code = 1127993834) 1.0 mg/dL 0.1-1.1 CALCIUM (test code = 8481186040) 9.0 mg/dL 8.6-10.6 T PROTEIN (test code = 7092723010) 7.8 g/dL 6.3-8.2 ALBUMIN (test code = 2249242212) 4.6 g/dL 3.5-5 ALK PHOS (test code = 8774535761) 81 U/L 34-122 ALTv (test code = 1742-6) 11 U/L 5-35 AST(SGOT) (test code = 3548392693) 17 U/L 13-40 eGFR (test code = 3578622244) mL/min/1.73m2 PARTH (test code = PARTH) Association [...] imaging tests). Lab Interpretation (test code = 35789-4) Abnormal [facility] WITH [id number] 00:51:27* Test Item Value Reference Range Interpretation Comme nts WBC (test code = 6690-2) See_Comment H [Automated [employer]] The system which generated this result transmitted reference range: 4.30 - 11.10 10*3/?L. The reference range was not used to interpret this result as normal/abnormal. RBC (test code = 789-8) See_Comment [Automated [employer]] The system which generated this result transmitted [...] 33.3 g/dL 31.6-35.1 RDW-SD (test code = 40173-7) 45.4 fL 39-49.9 RDW-CV (test code = 788-0) 13.3 % 12-15.5 PLT (test code = 777-3) See_Comment [Automated [employer]] The system which generated this result transmitted reference range: 166 - 358 10*3/?L. The reference range was not used to interpret this result as normal/abnormal. MPV (test code = 03538-7) 10.5 fL 9.5-12.9 NRBC/100 WBC (test code = 2180422249) See_Comment [Automated me ssage] The system which generated this result transmitted reference range: 0.0 - 10.0 /100 WBCs. The reference range was not used to interpret this result as normal/abnormal. NRBC x10^3 (test code = 8538870395) See_Comment [Automated messa ge] The system which generated this result transmitted reference range: 10*3/?L. The reference range was not used to interpret this result as normal/abnormal. GRAN MAT (NEUT) % (test code = 770-8) 67.4 % IMM GRAN % (test code = 4580946612) 0.30 % LYMPH % (test code = 736-9) 24.5 % MONO % (test code = 5905-5) 7.2 % EOS % (test code = 713-8) 0.3 % BASO % (test code = 706-2) 0.3 % GRAN MAT x10^3(ANC) (test code = 8938470181) 8.19 10*3/uL 1.88-7.09 H IMM GRAN x10^3 (test code = 1075438835) 0.04 10*3/uL 0-0.06 LYMPH x10^3 (test code = 731-0) 2.98 10*3/uL 1.32-3.29 MONO x10^3 (test code = 742-7) 0.88 10*3/uL 0.33-0.92 EOS x10^3 (test code = 711-2) 0.04 10*3/uL 0.03-0.39 BASO x10^3 (test code = 704-7) 0.04 10*3/uL 0.01-0.07 Lab Interpretation (test code = 98992-2) Abnormal [facility] WITH [id number] 00:51:27* Test Item Value Reference Range Interpretation Comme nts WBC (test code = 6690-2) See_Comment H [Automated messa ge] The system which generated this result transmitted reference range: 4.30 - 11.10 10*3/?L. The reference range was not used to interpret this result as normal/abnormal. RBC (test code = 789-8) See_Comment [Automated messa ge] The system which [...] 33.3 g/dL 31.6-35.1 RDW-SD (test code = 23793-4) 45.4 fL 39-49.9 RDW-CV (test code = 788-0) 13.3 % 12-15.5 PLT (test code = 777-3) See_Comment [Automated messa ge] The system which generated this result transmitted reference range: 166 - 358 10*3/?L. The reference range was not used to interpret this result as normal/abnormal. MPV (test code = 86014-3) 10.5 fL 9.5-12.9 NRBC/100 WBC (test code = 9673902142) See_Comment [Automated [employer] ssage] The system which generated this result transmitted reference range: 0.0 - 10.0 /100 WBCs. The reference range was not used to interpret this result as normal/abnormal. NRBC x10^3 (test code = 7299561500) See_Comment [Automated messa ge] The system which generated this result transmitted reference range: 10*3/?L. The reference range was not used to interpret this result as normal/abnormal. GRAN MAT (NEUT) % (test code = 770-8) 67.4 % IMM GRAN % (test code = 4442417541) 0.30 % LYMPH % (test code = 736-9) 24.5 % MONO % (test code = 5905-5) 7.2 % EOS % (test code = 713-8) 0.3 % BASO % (test code = 706-2) 0.3 % GRAN MAT x10^3(ANC) (test code = 6254009578) 8.19 10*3/uL 1.88-7.09 H IMM GRAN x10^3 (test code = 4922026931) 0.04 10*3/uL 0-0.06 LYMPH x10^3 (test code = 731-0) 2.98 10*3/uL 1.32-3.29 MONO x10^3 (test code = 742-7) 0.88 10*3/uL 0.33-0.92 EOS x10^3 (test code = 711-2) 0.04 10*3/uL 0.03-0.39 BASO x10^3 (test code = 704-7) 0.04 10*3/uL 0.01-0.07 Lab Interpretation (test code = 58274-2) [facility] [id number] 00:00:00 * Test Item Value Reference Range Interpretation Comme nts SOURCE: (test code = 8001) Cervical/Endocervical SLIDES: (test code = 8011) 1 LMP: (test code = 8021) 03/26/2019 SPECIMEN ADEQUACY: (test code = 85526) (NOTE) INTERPRETATION: (test code = 26216) NILM/NO EPITH. ABNORMALITY;SEE BELOW OTHER COMMENTS: (test code = 8081) (NOTE) CHIEF KNOWLEDGE OFFICER: (test code = 8101) MARI Nair(ASCP) QC TECHNOLOGIST: (test code = 8111) MARGARITA Serrano(ASCP)CT(IA C) LOCATION: (test code = 78195) (NOTE) CPT: (test code = 8140) (NOTE) CT/NG, TMA, THINPREP [ADDED]2019-05-04 00:00:00* Test Item Value Reference Range Interpretation Comme nts GONORRHEA, TMA (test code = 61158) NEGATIVE CHLAMYDIA, TMA (test code = 26100) NEGATIVE VAGINAL PATHOGENS DNA [id number] 00:00:00* Test Item Value Reference Range Interpretation Comme nts PRASANNA SPECIES (test code = 09762) NEGATIVE G. VAGINALIS (test code = 92830) NEGATIVE T. VAGINALIS (test code = 46157) POSITIVE CBC W/AUTO [id number] 00:00:00* Test Item Value Reference Range Interpretation [...] COUNT (test code = 1015) 362 K/UL HPV HIGH RISK WITH GENOTYPE, [id number] 00:00:00* Test Item Value Reference Range Interpretation Comme nts HPV HIGH RISK INTERP (test c ode = 51584) NEGATIVE HPV 16 (test code = 49093) NEGATIVE HPV 18 (test code = 20678) NEGATIVE HPV, HR, OTHER GENOTYPES (te st code = 61552) NEGATIVE LIPID [id number] 00:00:00* Test Item Value Reference Range Interpretation Comme nts CHOLESTEROL (test code = 2210) 221 MG/DL TRIGLYCERIDES (test code = 2232) 106 MG/DL HDL CHOLESTEROL (test code = 2220) 40 MG/DL CALC LDL CHOL (test code = 2237) 160 MG/DL RISK RATIO LDL/HDL (test cod e = 2238) 4.00 RATIO HEMOGLOBIN [id number] 00:00:00* Test Item Value Reference Range Interpretation Comme nts HEMOGLOBIN A1c (test code = 02976) 5.9 % COMPREHENSIVE METABOLIC [id number] 00:00:00* Test Item Value Reference Range Interpretation Comme nts GLUCOSE (test code = 2217) 100 MG/DL BUN (test code = 2208) 10 MG/DL CREATININE (test code = 2214) 0.56 MG/DL eGFR AMER. (test cod e = 04490) 137 ML/MIN/1.73 eGFR NON- AMER. (test code = 10858) 118 ML/MIN/1.73 CALC BUN/CREAT (test code = [...] ALT (test code = 2219) 26 U/L [id number] 00:00:00* Test Item Value Reference Range Interpretation [...] 12:28:00* Test Item Value Reference Range Interpretation Comme nts BNP (test code = OBNP) <15 pg/mL 0-50 CT PE PROTOCOL *OW*2018-12-04 12:10:41CLINICAL HISTORY: Chest pain.LOCATION: D4.FINDINGS: Following the administration of 95 mL Yoyosecfk661 intravenouscontrast, multislice axial images are obtained through [...] 05:31:13CT abdomen and pelvis with contrastLocation Code: [id number] HISTORY: [id number]: Lower abdominal teetee nCOMPARISON: NoneTechnique: Helical CT [...] prominent bilateral adnexa left slightly more prominent thantheright with a likely 1.3 cm left adnexal [...] right with a likely 1.3 cm left adn exal cyst. Likely multiple follicles areseen bilaterally, further [...] % 0.0-10.0 XR CHEST 2 VIEW *OW*2018-10-12 07:25:62M66YETN: XR CHEST 2 VIEW *OW*HISTORY: 69300739: CoughCOMPARISON: 08/08/18INDINGS: The lungs are clear. No [...] = GMID%) 10.3 % 0.0-10.0 H THROAT [id number] 07:45:00* Test Item Value Reference Range Interpretation [...] 14:39:21PA and lateral chest, 2 viewsLocation code: [id number] HISTORY: Chest painCOMPARISON: NoneCOMMENTS:The lungs are clear and well inflated. The costophrenic angles aresharp. The cardiomediastinal silhouette is unremarkable. The bones are intact.IMPRESSION: No acute abnormality Notes Date/Time Note Provider Source 2024-03-29 15:45:00 The patient was sent home with a stool collection kit and will bring it back after collection. No labs were collected during this visit. T [facility] 2024-03-29 10:02:13 Mammogram dept is reporting they need a referral for dx mammo bilateral and US bilateral Pt is reporting lump in breast and everyday pain Lynda [facility] 2024-03-22 13:40:00 Addended by: JIMMY CARROLL MD on: 03/28/2024 03:29 PM Modules accepted: Level of Service T [facility] 2023-11-25 09:58:04 Forms reviewed & signed by Zev Villa DO, faxed to [facility] ([phone]), and scanned to patient's chart. Anne Shane MA 11/25/2023 9:58 AM Anne Shane MA [facility] 2023-11-24 15:14:31 Physical Therapy evaluation notes and [facility] (11/23/2023). Documents placed in Zev Villa DO's folder for review and signature. Once completed, should be faxed back to [phone] and scanned to patient's chart. Anne Shane MA 11/24/2023 3:15 PM Anne Shane MA [facility] 2023-11-13 14:57:22 Sent pt Intellistream message advising her to f/u with [facility] pharmacy. They at times have pt assistance available. [facility] 2023-11-13 12:58:03 Copied from [facility] #[id number]. Topic: Clinical - Order >> Nov 13, 2023 12:55 PM Patient System Auditor wrote: Serenity Calderon is a 43 year old female Patient is calling as she is out of ubrogepant 100 mg Tab. She is not able to pay for prescription and is needing financial assistance. Patient states that last time prescription was mailed to her. Please advise. Jackelin Topete [facility] 2023-11-10 12:45:59 Prescription & Letter of Medical Necessity has been completed & signed by Zev Villa DO as well as scanned to patient's chart. Clinical notes, patient demographics, & LMN have all been faxed to [employer] . Anne Shane MA 11/10/2023 12:46 PM Anne Shane MA [facility] 2023-11-03 16:45:00 Images from the original note were not included. Venipuncture collection performed by clean technique on the right anticubitus. Total of 1 attempts were made. Slight pressure and a bandage/dressing were applied to the site(s). The patient experienced no complications. The following specimens were processed according to instructions and sent to [facility] laboratories per lab order on 11/03/2023 : LT BLUE SST 5 RED LAV PPT DK GREEN (LiHep) LT GREEN (LiHep) GAITAN DK BLUE (K2) DK BLUE (S) ACD Blood Culture NIPT Urine Urine Culture [facility] 2023-10-30 16:08:09 Called patient scheduled her an appt with Shea SIERRA at the PCP clinic on 11/02 Pam Fuentes [facility] 2023-10-30 09:24:34 Please call patient to schedule appointment to discuss lab results. Bonnie Haji MA 10/30/2023 9:24 AM Bonnie Haji MA [facility] 2023-10-29 17:16:36 Recommend patient schedule a follow up appointment to discuss lab results. PA-PHYSICIAN BELLOWS FILLER MIDLEVEL PROVIDER [facility] 2023-10-26 14:04:03 Please advise on lab results. Bonnie Haji MA 10/26/2023 2:04 PM [facility] 2023-10-26 09:40:39 Serenity Calderon is a 43 year old female Pt is calling requesting to speak with a nurse regarding lab results. Please advise. [phone] (home) Ana Pritchett [facility] 2023-10-01 15:00:00 Images from the original note were not included. Venipuncture collection performed by clean technique on the left anticubitus. Total of 1 attempts were made. Slight pressure and a bandage/dressing were applied to the site(s). The patient experienced no complications. The following specimens were processed according to instructions and sent to [facility] laboratories per lab order on 10/01/2023: LT BLUE SST 3 RED LAV 2 PPT DK GREEN (LiHep) DK GREEN (SodH) GAITAN DK BLUE (K2) DK BLUE (S) ACD Blood Culture NIPT/NTD [facility]"
[2024-06-03] MEDS ORDERED: METOCLOPRAMIDE 10 MG/2mL INJ ONE (14:03)
[2024-06-03] MEDS ORDERED: KETOROLAC 30 MG/ML INJ ONE (14:03)
[2024-06-03] MEDS ORDERED: DIPHENHYDRAMINE 50 MG/ML VIAL ONE (14:03)
[2024-06-03] MEDS ORDERED: NA CHLORIDE 0.9% 1,000 ML ONE (14:03)
[2024-06-03] MEDS ORDERED: Magnesium Sulfate 2gm IVPB 2 G/50 ML BAG IV ONE (14:04)
--- NOTE | 2024-06-03 15:20 | ER ---
Nurse's Notes [facility] Name: Serenity Collins Age: 43 yrs Sex: Female : 1980 Arrival Date: 06/03/2024 Time: 12:46 Bed DX4 Private MD: Diagnosis: Headache Presentation: 06/03 12:57 Chief complaint: Patient states: he has been having head and neck pain for approx one ap3 year. patient states the pain is just getting to be too much, and she is unable to control the pain at home. patient reports urinating and defecating on herself. patient currently reports pain 10/10 on the pain scale. Coronavirus screen: At this time, the client does not indicate any symptoms associated with coronavirus-19. Ebola Screen: No symptoms or risks identified at this time. Initial Sepsis Screen: Does the patient meet any 2 criteria? HR > 90 bpm. No. Patient's initial sepsis screen is negative. Does the patient have a suspected source of infection? No. Patient's initial sepsis screen is negative. Risk Assessment: Do you want to hurt yourself or someone else? Patient reports no desire to harm self or others. Onset of symptoms is unknown. Transition of care: patient was not received from another setting of care. 12:57 Method Of Arrival: Ambulatory ap3 12:57 Acuity: MARY 2 ap3 Triage Assessment: 13:00 Headache History: The patient has had previous headaches and this one is similar to ap3 previous episodes. General: Appears uncomfortable, Behavior is cooperative, appropriate for age, anxious. Pain: Complains of pain in neck, head Pain currently is 10 out of 10 on a pain scale. Pain began years ago. Is chronic, Also complains of inability to work. Neuro: Level of Consciousness is awake, alert, obeys commands, Oriented to person, place, time, situation, Appropriate for age Speech is normal. Neuro: Reports headache. Cardiovascular: Patient's skin is warm and dry. Respiratory: Airway is patent Respiratory effort is even, unlabored, Respiratory pattern is regular, symmetrical. Historical: - Allergies: 13:00 JOE; ap3 13:00 Seroquel; ap3 13:00 SHELLFISH; ap3 13:00 Tylenol-Codeine #3; ap3 - PMHx: 13:00 Anxiety; Bipolar disorder; depressive disorder; ocd; PTSD; Rheumatoid Arthritis; ap3 - PSHx: 13:00 Total abdominal hysterectomy; ap3 - Immunization history:: Client reports having NOT received the Covid vaccine. Flu vaccine is not up to date. - Infectious Disease History:: Denies. - Social history:: Smoking status: Reported history of juuling and/or vaping. - Family history:: not pertinent. Screenin:01 Abuse screen: Denies threats or abuse. Nutritional screening: No deficits noted. ap3 Tuberculosis screening: No symptoms or risk factors identified. Vital Signs: 12:57 BP 133 / 106; Pulse 99; Resp 18; Temp 97.7; Pulse Ox 99% ; Weight 65.77 kg; Height 5 ap3 ft. 2 in. ; Pain 10/10; 12:57 Body Mass Index 26.52 (65.77 kg, 157.48 cm) ap3 12:57 Pain Scale: Adult ap3 ED Course: 12:49 Patient arrived in ED. im 12:51 Naif Maloney MD is Attending Physician. rt 13:00 Triage completed. ap3 13:02 Arm band placed on left wrist. ap3 13:10 CM approached by provider, inquiring about resources to assist patient. ane 1345 CM met with , patient identified by name and . Demographic sheet confirmed. Patient confirms her insurance is [employer] and that she does not have a PCP at this time. She reports she was seeing a roof painter out [facility] but cannot recall the name, possible a doctor named "Dr. Brothers" who prescribed Flexeril approximately a year ago. She explains that she has been "saving the Flexeril for when her headaches are extremely painful. She reports she has has taken a combination of Tylenol, Ibuprofen and Flexeril in the past, and it has been effective for her head pain. She goes on to say she has seen a neurologist at [facility] and cannot recall the name but remembers she was told she needs an MRI. states she has been unable to get an MRI due to financial constraints, and transportation. CM provided community resources packet, and lists of local PCPs, as well as local neurology specialists. Patient states she is allergic to Tylenol with codeine and Seroquel. Patient verbalized understanding of need for PCP and resource information provided. CM relayed information to ER provider Dr. Maloney. 14:15 Inserted saline lock: 22 gauge in right forearm, using aseptic technique. Flushed with hb 10 mL NS. 15:20 Brad Soto MD is Referral Physician. rt Administered Medications: 14:14 Drug: Ketorolac IVP 15 mg IVP once Route: IVP; Site: right forearm; hb 14:14 Drug: NS 0.9% IV 1000 ml IV at 1 bolus Per protocol; to be given as a bolus over 60 hb minutes Route: IV; Rate: 1 bolus; Site: right forearm; 14:14 Drug: metoCLOPramide IVP 10 mg IVP once; over 1 to 2 minutes Route: IVP; Site: right hb forearm; 14:14 Drug: diphenhydrAMINE IVP 25 mg IVP once Route: IVP; Site: right forearm; hb 14:14 Drug: Magnesium Sulfate IVPB 2 grams IVPB once over 1 hrs Route: IVPB; Infused Over: 1 hb hrs; Site: right forearm; Outcome: 15:20 Discharge ordered by MD. rt 15:50 Patient left the ED. db Signatures: Bonnie Dickerson RN RN Alisson Wagner RN RN ap3 Lakeshia Cabrera RN RN db Naif Maloney MD MD rt Krista Lowery Andie RN YOHAN to
--- NOTE | 2024-06-03 15:20 | EDPHYS ---
Physician Documentation [facility] Name: Serenity Collins Age: 43 yrs Sex: Female : 1980 Arrival Date: 06/03/2024 Time: 12:46 Bed DX4 Private MD: ED Physician Naif Maloney HPI: 06/03 14:41 This 43 yrs old Female presents to ER via Ambulatory with complaints of Headache. rt 14:41 . The patient States that she has had a headache for about 1 year. Was referred for an rt MRI, states that she is not able to get it thus far. Was seeing pain management doctor, neurologist, was not seen by in about a year. States that the symptoms have worsened today. Denies other acute complaints, symptoms are moderate in severity, no other aggravating or alleviating factors. . Historical: - Allergies: 13:00 JOE; ap3 13:00 Seroquel; ap3 13:00 SHELLFISH; ap3 13:00 Tylenol-Codeine #3; ap3 - PMHx: 13:00 Anxiety; Bipolar disorder; depressive disorder; ocd; PTSD; Rheumatoid Arthritis; ap3 - PSHx: 13:00 Total abdominal hysterectomy; ap3 - Immunization history:: Client reports having NOT received the Covid vaccine. Flu vaccine is not up to date. - Infectious Disease History:: Denies. - Social history:: Smoking status: Reported history of juuling and/or vaping. - Family history:: not pertinent. ROS: 14:41 Constitutional: Negative for fever, chills, and weight loss, Cardiovascular: Negative rt for chest pain, palpitations, and edema, Respiratory: Negative for shortness of breath, cough, wheezing, and pleuritic chest pain, MS/Extremity: Negative for injury and deformity, Skin: Negative for injury, rash, and discoloration, 14:41 Neuro: Positive for headache, Negative for loss of consciousness, Exam: 14:41 Constitutional: This is a well developed, well nourished patient who is awake, alert, rt and in no acute distress. Head/Face: Normocephalic, atraumatic. Chest/axilla: Normal chest wall appearance and motion. Nontender with no deformity. No lesions are appreciated. Cardiovascular: Regular rate and rhythm with a normal S1 and S2. No gallops, murmurs, or rubs. Normal PMI, no JVD. No pulse deficits. Respiratory: Lungs have equal breath sounds bilaterally, clear to auscultation and percussion. No rales, rhonchi or wheezes noted. No increased work of breathing, no retractions or nasal flaring. Abdomen/GI: Soft, non-tender, with normal bowel sounds. No distension or tympany. No guarding or rebound. No evidence of tenderness throughout. Skin: Warm, dry with normal turgor. Normal color with no rashes, no lesions, and no evidence of cellulitis. MS/ Extremity: Pulses equal, no cyanosis. Neurovascular intact. Full, normal range of motion. Neuro: Awake and alert, GCS 15, oriented to person, place, time, and situation. Cranial nerves II-XII grossly intact. Motor strength 5/5 in all extremities. Sensory grossly intact. Cerebellar exam normal. Normal gait. Vital Signs: 12:57 BP 133 / 106; Pulse 99; Resp 18; Temp 97.7; Pulse Ox 99% ; Weight 65.77 kg; Height 5 ap3 ft. 2 in. ; Pain 10/10; 12:57 Body Mass Index 26.52 (65.77 kg, 157.48 cm) ap3 12:57 Pain Scale: Adult ap3 MDM: 13:08 Medical Screening Exam initiated rt 16:54 Differential diagnosis: Migraine headache. Data reviewed: vital signs, nurses notes. I rt considered the following discharge prescriptions or medication management in the emergency department Medications were administered in the Emergency Department. See MAR. Test considered but Not performed: CT: Patient has had a previous workup, this is a chronic headache syndrome, do not believe that she requires further CT scan.. Care significantly affected by the following chronic conditions: Migraine headache. Counseling: I had a detailed discussion with the patient and/or guardian regarding the historical points, exam findings, and any diagnostic results supporting the discharge/admit diagnosis, the need for outpatient follow up, to return to the emergency department if symptoms worsen or persist or if there are any questions or concerns that arise at home. Response to treatment: the patient's symptoms have markedly improved after treatment. ED course: Headache resolved with treatment in the ED, Emeli saw the patient, gave patient resources.. Administered Medications: 14:14 Drug: Ketorolac IVP 15 mg IVP once Route: IVP; Site: right forearm; hb 14:14 Drug: NS 0.9% IV 1000 ml IV at 1 bolus Per protocol; to be given as a bolus over 60 hb minutes Route: IV; Rate: 1 bolus; Site: right forearm; 14:14 Drug: metoCLOPramide IVP 10 mg IVP once; over 1 to 2 minutes Route: IVP; Site: right hb forearm; 14:14 Drug: diphenhydrAMINE IVP 25 mg IVP once Route: IVP; Site: right forearm; hb 14:14 Drug: Magnesium Sulfate IVPB 2 grams IVPB once over 1 hrs Route: IVPB; Infused Over: 1 hb hrs; Site: right forearm; Disposition Summary: 06/03/24 15:20 Discharge Ordered Notes: Location: Home rt Condition: Stable rt Diagnosis - Headache rt Followup: rt - With: Brda Soto MD - When: 2 - 3 days - Reason: Discharge Instructions: - Discharge Summary Sheet hb - Migraine Headache rt Forms: - Work release form hb - Medication Reconciliation Form rt - Antibiotic Education rt - Prescription Opioid Use rt - Patient Portal Instructions rt - Leadership Thank You Letter rt Signatures: Bonnie Dickerson, RN RN hb Alisson Wagner RN RN ap3 Naif Maloney MD MD rt
[2024-06-03 18:17] VITALS: BP 133/106; TEMP 97.7; O2SAT 99
== END 2024-06-03 15:50 | disposition home or self-care (01) ==
LOC: ER 12:46
DX: R51.9 Headache, unspecified (principal); Z28.310 Unvaccinated for COVID-19
CPT/HCPCS: 96374; 96375; 99284; J1200; J2765; J3475; J7030

== ENCOUNTER 2024-06-15 07:08 | Emergency (ER) | payer MEDICARE ==
--- OUTSIDE RECORDS SUMMARY | 2024-06-15 07:14 | XMS REPORT | Continuity of Care Document ---
Author Name Unknown Address [address] [facility] [address] [place] [address] [facility] thconnect Address [address] [facility] [address] [place] [address] Care Team Providers Care Centralized Traffic Control Operator Name Role Phone Lawrence Amberly GORE Primary Care Physician ANTONY JOSHUA Attending Clinician Unavail able Doctor Unassigned, [place] Attending Clinician U ELIU Byrne Attending Clinician Un available JIMMY CARROLL Attending Clinician Unavailable HUGH SYLVESTER Attending Clinician Unavailable HUGH SYLVESTER Attending Clinician Unavailable ZEV VILLA Attending Clinician Unavailable Eliu Barnes MD Attending Clinician Pcp-Lab Attending Clinician Unavailable Jesus Garay MD Attending Clinician [phone] Daphnie Dawson LCSW Attending Clinician U LEN Duncan Attending Clinician Unavailable Len June MD Attending Clinician [phone] NILA JOVEL Attending Clinician Unavailable SHEA SEBASTIAN Attending Clinician Unavailable SHEA SEBASTIAN Attending Clinician Unavailable Zev Villa DO Attending Clinician [phone] [place] BAILIFF, Anne Attending Clinician [phone] Pcp-Lab Attending Clinician Unavailable Song Chang MD Attending Clinician [phone] Vtc-Lab Attending Clinician Unavailable SONG CHANG Attending Clinician Unavailable Doctor Unassigned, [place] Attending Clinician SHANDRA Chase Attending Clinician Unavailable MARINO WILLS Attending Clinician Unavailable Pgy3 Attending Clinician Unavailable Marino Wills MD Attending Clinician + [phone] MARCIANO WAYNE Attending Clinician Unavailab zen Wayne MD, Marciano Attending Clinician [phone] Ryan [place] BAILIFF, Felisa Attending Clinician [phone] FELISA DAVIS Attending Clinician Unavailable Jimmy Carroll MD Attending Clinician + [phone] Sourav TAY, Sharan Arthur Attending Clinician [phone] Leonie ALMANZAR, Katy Attending Clinician Unavailable Brody MATHEWS, Simeon Carter Attending Clinician Unavail SURESH Coffey Attending Clinician Unavailabl chang Bonilla DDS, Suresh Hemphill Attending Clinician [phone] Chrissy [place] BAILIFF, Cristy Liriano Attending Clinician [phone] Emmanuel RAMIRES, Peggy Attending Clinician + [phone] Mehul GALVANS, Chau Mccarthy Attending Clinician +[phone] CHAU CARVER Attending Clinician Unavailab zen Joshua MD, Antony Leach Attending Clinician [phone] Arianna Locke MD Attending Clinician [phone] Jewel TAY, Otis Attending Clinician +[phone] OTIS HO Attending Clinician Unavailable Only, Adc Test Attending Clinician Unavailable Melanie Lou RN Attending Clinician [phone] BENTLEY HERRON Attending Clinician Unavailable Eliz Cantu MD Attending Clinician [phone] Shawn Agudelo MD Attending Clinician +[phone] SHAWN AGUDELO Attending Clinician Unavailabl chang Gonzalez MD, Theodora Attending Clinician [phone] SENA JONES Attending Clinician Unavailable Bobby [place] BAILIFF, Sena Attending Clinician [phone] Alejandro Benites DO Attending Clinician [phone] Unknown, Attending Attending Clinician Unavailab le UNKNOWN, ATTENDING Attending Clinician Unavailab SON Pulido Attending Clinician Tiffany Shane SOFTWARE SECURITY CONSULTANT, Montse M Attending Clinician Unaary De León_Estelaclay Attending Clinician Unavailable Francis TAY, Jody Attending Clinician [phone] Suleiman TORREZ, Bentley Attending Clinician [phone] EMILY RIVERA Attending Clinician Unavailable Miguel TAY, Emily Mccormack Attending Clinician + [phone] Only, [facility] Test Attending Clinician Unavailable SABINO DUMONT Attending Clinician Unavaillui Dumont MD, Sabino Williamson Attending Clinician + [phone] FRANKLYN CASTILLO Attending Clinician Unavailable Pgy2 Attending Clinician Unavailable Franklyn Castillo MD Attending Clinician [phone] Jack Ott MD Attending Clinician [phone] Alma Rosa Sethi MD Attending Clinician + Soila GORE, Catalina Attending Clinician [phone] Pcp, Patient Does Not Have A [...] Unavaillui Bonilla DDS, Suresh Hemphill Admitting Clinician [phone] Antony Joshua MD Admitting Clinician SENA JONES Admitting Clinician Unavailable SarthakDamienetelvina Admitting Clinician Unavailable EMILY RIVERA Admitting Clinician Unavailable Emily Rivera MD Admitting Clinician + [phone] SABINO DUMONT Admitting Clinician UnavailMARINO Arriaza Admitting Clinician Unavailable Marino Wills MD Admitting Clinician + [phone] DR ZEV PAEZ Admitting Clinician Unavailable CINDI, DR KEYUR Elias Admitting Clinician Unavailclay HUNT, DR MARKELL Madison Admitting Clinician Gisele hernandez BA, DR CARPENTRE Admitting Clinician Unavailable MING, DR MELANIE Downing Admitting Clinician Unavailclay LAWRENCE, DR LEACH Admitting Clinician Unavailable TRISH, DR DARÍO Newton Admitting Clinician Tiffany dumas Payers Payer Name Policy Type Policy Number Effective Date Expirati on Date Source [facility] [employer] [id number] 2021 00:00:00 2022 00:00:00 [facility] BLUE ADVANTAGE O [id number] 2023 00:00:00 [facility] [id number] 2022 00:00:00 [facility] COMM [id number] 2022 00:00:00 [facility] [id number] 2021 00:00:00 2021 00:00:00 Problems Condition Name Condition Details Condition Category Status Onset Date Resolution Date Last Treatment Date Treating Clinician Comments Source 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 Added automatic ally from request for surgery [id number] [facility] Chronic pelvic pain in female Chronic pelvic pain in female Disease Active 11-28 00:00: 00 Overview: Formattin g of this note might be different from the original. Added automatic ally from request for surgery [id number] [facility] Hydrosalpi nx Hydrosalpi nx Disease Active 11-12 00:00: 00 [facility] Generalize d anxiety disorder Generalize d anxiety disorder Disease Active 11-12 00:00: 00 [facility] Bipolar disorder in full remission, most recent episode unspecifie d type Bipolar disorder in full remission, most recent episode unspecifie d type Disease Active 11-12 00:00: 00 [facility] Abdominal pain Abdominal pain Disease Active 10-09 00:00: 00 [facility] Allergies, Adverse Reactions, Alerts Allergy Name Allergy Type Status Severity Reaction(s) Onset Date Inactive Date Treating Clinician Comments Source HYDROCOD ONE-ACET AMINOPHE N DRUG Active ITCHING 2021-08 0-04 00:00: 00 [facility] Hydrocod one-Acet aminophe n Propensi ty to adverse reaction s Active Itching 2021-08 0-04 00:00: 00 [facility] Quetiapi ne Drug Intolera nce Active Other - See comments 6- 00:00: 00 Made pt. Get really mad [facility] Shellfis h Derived Propensi ty to adverse reaction s Active Nausea and/or Vomiting 6-07 00:00: 00 [facility] QUETIAPI NE DRUG INGREDI Active High Other-Cmnt 6-07 00:00: 00 [facility] SHELLFIS H DERIVED DRUG INGREDI Active High ITCHING 6-07 00:00: 00 [facility] Joe Propensi ty to adverse reaction s Active Anaphylaxis 0 4-08 00:00: 00 [facility] JOE DRUG INGREDI Active Anaphylaxis 0 4-08 00:00: 00 [facility] Codeine Propensi ty to adverse reaction s Active Itching 0 2-23 00:00: 00 To face [facility] CODEINE DRUG INGREDI Active ITCHING 10-09 00:00: 00 [facility] Social History Social Habit Start Date Stop Date Quantity Comments Source [facility] intake 2024-03-29 00:00:00 2024-03-29 00:00:00 Ex-drinker (finding) [facility] History of Social function 2024-03-22 00:00:00 2024-03-22 00:00:[address] [facility] Tobacco use and exposure 2024-03-22 00:00:00 2024-03-22 00:00:00 Smokeless tobacco non-user [facility] Alcohol intake 2023-11-10 00:00:00 2023-11-10 00:00:00 Ex-drinker (finding) [facility] Exposure to SARS-CoV-2 (event) 2022-10-28 00:00:00 2022-11-07 12:55:[address] [facility] Alcohol Comment 2022-10-15 00:00:00 2022-10-15 00:00:00 stopped [address] [facility] History of tobacco use 2022-05-19 00:00:[address] [facility] Tobacco Comment 2022-04-07 00:00:00 2022-04-07 00:00:00 Occassionally smokes [address] [facility] Sex assigned at 1980 00:00:00 1980 00:00:[address] [facility] Smoking Status Start Date Stop Date Source Ex-smoker 2024-03-22 00:00:00 2024-03-22 00:00:[address] [facility] Occasional tobacco smoker 2022-06-03 00:00:[address] [facility] Smokes tobacco daily 2021-11-19 00:00:[address] [facility] Medications Ordered Medication Name Filled Medication Name Start Date Stop Date Current Medication? Ordering Clinician Indication Dosage Frequency Signature (SIG) Comments Components Source diclofenac dodium (VOLTAREN ARTHRITIS PAIN) 1 % gel 03-29 00:00: 00 Yes [id number] 2g Apply 2 g to area(s) 4 (four) times daily as needed for Pain. [facility] Capsaicin 0.1 % cream 8-13 00:00: 00 06-28 05:59 :00 Yes [id number] Apply to area(s) 4 (four) times daily as needed for Pain (scale 4-6) for up to 90 days. [facility] cyclobenzap rine 10 mg tablet 3-26 00:00: 00 03-29 00:00 :00 No [id number] 10mg Take 1 tablet by mouth in the morning and 1 tablet at noon and 1 tablet in the evening. [facility] amitriptyli ne 10 mg tablet 2-15 00:00: 00 01-29 04:59 :00 No [id number] 10mg Take 1 tablet by mouth at bedtime for 120 days. [facility] ubrogepant 100 mg Tab 2022-08 00:00: 00 Yes [id number] 100mg Take 1 tablet by mouth as needed for Other (Headache) for up to 64 doses. If symptoms persist or return, may repeat dose after 2 hours. Maximum: 200 mg per 24 hours [facility] topiramate 25 mg tablet 2022-08 030 00:00: 00 07-13 05:59 :00 No [id number] Take 1 tablet by mouth 2 (two) times daily for 7 days, THEN 2 tablets 2 (two) times daily for 21 days. [facility] sumatriptan 100 mg tablet 2022-08 0-30 00:00: 00 07-13 00:00 :00 No [id number] 100mg Take 1 tablet by mouth as needed for Migraine (Max of 2 tablets/da y.). [facility] ondansetron (ZOFRAN (PF)) injection 4 mg 11-04 17:45: 00 11-04 17:58 :00 No 4mg 4 mg, Slow IV Push, ONCE, 1 dose, On Thu11/04/22 at 1245, ANTOINETTE [facility] morpHINE (4 mg/mL) injection 4 mg 11-04 17:45: 00 11-04 17:58 :00 No 4mg 4 mg, Slow IV Push, ONCE, 1 dose, On Thu11/04/22 at 1245, STAT [facility] ketorolac (TORADOL) injection 30 mg 11-04 16:15: 00 11-04 15:45 :00 No 30mg 30 mg, Slow IV Push, ONCE, 1 dose, On Thu11/04/22 at 1115, ANTOINETTE [facility] OLANZapine 5 mg tablet 08-18 10:02: 06 08-18 00:00 :00 No 2.5mg Take 2.5 mg by mouth daily. [facility] TAKE 1 TABLET BY MOUTH EVERY 6 HOURS NEEDED 2021-08 00:00: 00 No OLANZapine 5 mg tablet 2021-08 13:28: 48 Yes 2.5mg Take 2.5 mg by mouth daily. [facility] ibuprofen (ADVIL CHILDREN'S) 100 mg/5 mL oral suspension 600 mg 2021-08 01:30: 00 Yes 600mg 600 mg, Oral, Q6H, First dose (after last modificati on) on Thu05/22/22 at 2030, Until Discontinu ed, Routine [facility] acetaminoph en (TYLENOL) 160 mg/5 mL oral liquid 650 mg 2021-08 01:15: 00 Yes 650mg 650 mg, Oral, Q6H, First dose (after last modificati on) on Thu05/22/22 at 2015, Until Discontinu ed, Routine [facility] ibuprofen 600 mg tablet 2021-08 0 00:00: 00 06-15 00:00 :00 No [id number] 101 600mg Take 1 tablet by mouth every 6 (six) hours as needed for Pain (scale 4-6). [facility] acetaminoph en (TYLENOL) 325 mg tablet 2021-08 0 00:00: 00 05-24 04:59 :00 No [id number] 101 650mg Take 2 tablets by mouth every 6 (six) hours as needed for Alternate with ibuprofen for pain scale 4-6. [facility] chlorhexidi ne 0.12 % mouthwash 2021-08 00:00: 00 10-15 00:00 :00 No [id number] 101 15mL Swish and spit out 15 mL in the morning and 15 mL in the evening. [facility] amoxicillin -clavulanat e (AUGMENTIN) 875-125 mg per tablet 2021-08 0 00:00: 00 05-31 04:59 :00 No [id number] 101 1{tbl} Take 1 tablet by mouth in the morning and 1 tablet in the evening. Do all this for 7 days. [facility] metroNIDAZO LE (FLAGYL) 500 mg tablet 2021-08 00:00: 00 05-31 04:59 :00 No [id number] 101 500mg Take 1 tablet by mouth every 12 (twelve) hours for 7 days. [facility] morpHINE (2 mg/mL) injection 2 mg 2021-08 18:14: 35 Yes 2mg 2 mg, Slow IV Push, Q4HPRN, Starting on Thu05/21/22 at 1314, Until Discontinu ed, Routine, Pain (scale 7-10) [facility] lactated ringers IV infusion 1,000 mL 2021-08 16:30: 00 Yes 1000mL at 75 mL/hr, 1,000 mL, IV Infusion, CONTINUOUS , Starting on Thu05/21/22 at 1130, Until Discontinu ed, Routine, PACU [facility] lidocaine 2% viscous (LIDOCAINE VISCOUS) 2 % solution 2021-08 15:56: 00 05-21 16:27 :27 No PRN, Starting on Thu05/21/22 at 1056, Until Thu05/21/22 at 1127, Routine, Intra-op [facility] chlorhexidi ne (PERIDEX) 0.12 % mouthwash 15 mL 2021-08 13:00: 00 Yes 15mL 15 mL, Oral (Swish And Spit Out), BID, First dose on Thu05/21/22 at 0800, Until Discontinu ed, Routine [facility] ampicillin- sulbactam (UNASYN) 3 g [...]
D uration of Therapy: Other (see Comments) [facility] lactated ringers IV infusion 1,000 mL 2021-08 0-05 03:45: 00 05-21 20:29 :02 No 1000mL at 125 mL/hr, 1,000 mL, IV Infusion, CONTINUOUS , Starting on Thu05/20/22 at 2245, Until Thu05/21/22 at 1529, Routine [facility] ketorolac (TORADOL) injection 15 mg 2021-08 0-05 03:29: 07 Yes 15mg 15 mg, Slow IV Push, Q6HPRN, 4 doses, Starting on Thu05/20/22 at 2229, Until Discontinu ed, Routine, Pain (scale 4-6) [facility] ibuprofen (ADVIL CHILDREN'S) 100 mg/5 mL oral suspension 600 mg 2021-08 0-05 03:28: 25 Yes 600mg 600 mg, Oral, Q6HPRN, Starting on Thu05/20/22 at 2228, Until Discontinu ed, Routine, Pain (scale 1-3) [facility] ondansetron (ZOFRAN (PF)) injection 4 mg 2021-08 0-05 03:28: 21 Yes 4mg 4 mg, Slow IV Push, Q4HPRN, Starting on Thu05/20/22 at 2228, Until Discontinu ed, Routine, Nausea and Vomiting (N/V) [facility] ampicillin- sulbactam (UNASYN) 3 g in NaCl 0.9% (NS) 100 mL MINI-BAG 2021-08 0-05 02:00: 00 05-21 03:32 :00 No 3g 3 g, IV Piggyback, ONCE, 1 dose, On Thu05/20/22 at 2100, Administer over 30 Minutes, 100 mL
Reas on for Anti-Infec tive: Documented Infection< br>Documen saw Infection Site: Other
O ther site: dental
Duration of Therapy: 7 days [facility] iopamidol (ISOVUE 370-500 mL) injection 70 mL 2021-08 02:00: 00 05-21 02:00 :00 No [id number] 101 70mL 70 mL, Intravenou s, ONCE, 1 dose, On Thu05/20/22 at 2100, Routine [facility] ondansetron (ZOFRAN (PF)) injection 4 mg 2021-08 00:15: 00 05-21 01:16 :00 No 4mg 4 mg, Slow IV Push, ONCE, 1 dose, On Thu05/20/22 at 1915, ANTOINETTE [facility] ketorolac (TORADOL) injection 30 mg 2021-08 00:00: 00 05-21 01:16 :00 No 30mg 30 mg, Slow IV Push, ONCE, 1 dose, On Thu05/20/22 at 1900, Routine [facility] OLANZapine 5 mg tablet 2021-08 0 23:41: 15 Yes 2.5mg Take 2.5 mg by mouth daily. [facility] amoxicillin -clavulanat e 875-125 mg per tablet 2021-08 004 00:00: 00 Yes [id number] 101 1{tbl} Take 1 tablet by mouth every 12 (twelve) hours. [facility] ibuprofen 800 mg tablet 2021-08 004 00:00: 00 Yes [id number] 101 800mg Take 1 tablet by mouth every 6 (six) hours as needed for Pain (scale 4-6). [facility] OLANZapine 5 mg tablet 6-12 04:20: 01 Yes 2.5mg Take 2.5 mg by mouth daily. [facility] acetaminoph en 325 mg tablet 01-24 00:00: 00 05-23 00:00 :00 No [id number] 650mg Take 2 tablets by mouth every 6 (six) hours as needed for Pain (scale 1-3). [facility] ibuprofen 600 mg tablet 01-24 00:00: 00 05-23 00:00 :00 No [id number] 600mg Take 1 tablet by mouth every 6 (six) hours as needed for Pain (scale 4-6). [facility] cyclobenzap rine 5 mg tablet 2020-08 00:00: [...] Systolic blood pressure 2024-03-29 19:13:00 125 mm[Hg] [facility] Diastolic blood pressure 2024-03-29 19:13:00 78 mm[Hg] [facility] Heart rate 2024-03-29 19:13:00 91 /min [facility] Body temperature 2024-03-29 19:13:[address] [facility] Respiratory rate 2024-03-29 19:13:00 16 /min [facility] Body height 2024-03-29 19:13:00 157.5 cm [facility] Body weight 2024-03-29 19:13:00 66.543 kg [facility] BMI 2024-03-29 19:13:00 26.83 kg/m2 [facility] Oxygen saturation in Arterial blood by Pulse oximetry 2024-03-29 19:13:00 100 /min [facility] Systolic blood pressure 2024-03-22 18:32:00 135 mm[Hg] [facility] Diastolic blood pressure 2024-03-22 18:32:00 91 mm[Hg] [facility] Heart rate 2024-03-22 18:29:00 82 /min [facility] Body temperature 2024-03-22 18:29:[address] [facility] Respiratory rate 2024-03-22 18:29:00 19 /min [facility] Body height 2024-03-22 18:29:00 157.5 cm [facility] Body weight 2024-03-22 18:29:00 65.726 kg [facility] BMI 2024-03-22 18:29:00 26.50 kg/m2 [facility] Oxygen saturation in Arterial blood by Pulse oximetry 2024-03-22 18:29:00 98 /min [facility] Systolic blood pressure 2023-11-10 14:30:00 124 mm[Hg] [facility] Diastolic blood pressure 2023-11-10 14:30:00 80 mm[Hg] [facility] Heart rate 2023-11-10 14:30:00 99 /min [facility] Respiratory rate 2023-11-10 14:30:00 12 /min [facility] Body height 2023-11-10 14:30:00 157.5 cm [facility] Body weight 2023-11-10 14:30:00 63.05 kg [facility] BMI 2023-11-10 14:30:00 25.42 kg/m2 [facility] Oxygen saturation in Arterial blood by Pulse oximetry 2023-11-10 14:30:00 96 /min [facility] Systolic blood pressure 2023-11-03 20:42:00 131 mm[Hg] [facility] Diastolic blood pressure 2023-11-03 20:42:00 87 mm[Hg] [facility] Heart rate 2023-11-03 20:42:00 89 /min [facility] Body temperature 2023-11-03 20:42:[address] [facility] Body height 2023-11-03 20:42:00 157.5 cm [facility] 2023-11-03 20:42:00 63.05 kg [facility] BMI 2023-11-03 20:42:00 25.42 kg/m2 [facility] Oxygen saturation in Arterial blood by Pulse oximetry 2023-11-03 20:42:00 98 /min [facility] Systolic blood pressure 2023-10-01 19:21:00 126 mm[Hg] [facility] Diastolic blood pressure 2023-10-01 19:21:00 84 mm[Hg] [facility] Heart rate 2023-10-01 19:21:00 87 /min [facility] Respiratory rate 2023-10-01 19:21:00 16 /min [facility] Body height 2023-10-01 19:21:00 157.5 cm [facility] Body weight 2023-10-01 19:21:00 65.227 kg [facility] BMI 2023-10-01 19:21:00 26.30 kg/m2 [facility] Oxygen saturation in Arterial blood by Pulse oximetry 2023-10-01 19:21:00 95 /min [facility] Systolic blood pressure 2023-07-13 14:04:00 131 mm[Hg] [facility] Diastolic blood pressure 2023-07-13 14:04:00 84 mm[Hg] [facility] Heart rate 2023-07-13 14:04:00 77 /min [facility] Respiratory rate 2023-07-13 14:04:00 18 /min [facility] Body height 2023-07-13 14:04:00 157.5 cm [facility] Body weight 2023-07-13 14:04:00 64.456 kg [facility] BMI 2023-07-13 14:04:00 25.99 kg/m2 [facility] Oxygen saturation in Arterial blood by Pulse oximetry 2023-07-13 14:04:00 99 /min [facility] Systolic blood pressure 2023-06-15 18:59:00 124 mm[Hg] [facility] Diastolic blood pressure 2023-06-15 18:59:00 79 mm[Hg] [facility] Heart rate 2023-06-15 18:59:00 78 /min [facility] Body height 2023-06-15 18:59:00 157.5 cm [facility] Body weight 2023-06-15 18:59:00 66.044 kg [facility] BMI 2023-06-15 18:59:00 26.63 kg/m2 [facility] Oxygen saturation in Arterial blood by Pulse oximetry 2023-06-15 18:59:00 100 /min [facility] Systolic blood pressure 2022-11-07 18:04:00 144 mm[Hg] [facility] Diastolic blood pressure 2022-11-07 18:04:00 101 mm[Hg] [facility] Heart rate 2022-11-07 17:54:00 82 /min [facility] Body temperature 2022-11-07 17:54:[address] [facility] Respiratory rate 2022-11-07 17:54:00 18 /min [facility] Body height 2022-11-07 17:54:00 157.5 cm [facility] Body weight 2022-11-07 17:54:00 56.836 kg [facility] BMI 2022-11-07 17:54:00 22.92 kg/m2 [facility] Systolic blood pressure 2022-11-04 19:41:00 130 mm[Hg] [facility] Diastolic blood pressure 2022-11-04 19:41:00 75 mm[Hg] [facility] Heart rate 2022-11-04 19:41:00 77 /min [facility] Body temperature 2022-11-04 19:41:[address] [facility] Respiratory rate 2022-11-04 19:41:00 18 /min [facility] Oxygen saturation in Arterial blood by Pulse oximetry 2022-11-04 19:41:00 100 /min [facility] Body weight 2022-11-04 14:05:00 58.968 kg [facility] BMI 2022-11-04 14:05:00 23.78 kg/m2 [facility] Systolic blood pressure 2022-10-15 20:04:00 111 mm[Hg] [facility] Diastolic blood pressure 2022-10-15 20:04:00 77 mm[Hg] [facility] Heart rate 2022-10-15 20:04:00 70 /min [facility] Body temperature 2022-10-15 20:04:[address] [facility] Respiratory rate 2022-10-15 20:04:00 18 /min [facility] Body height 2022-10-15 20:04:00 157.5 cm [facility] Body weight 2022-10-15 20:04:00 60.328 kg [facility] BMI 2022-10-15 20:04:00 24.33 kg/m2 [facility] Systolic blood pressure 2022-08-18 15:31:00 115 mm[Hg] [facility] [facility] pressure 2022-08-18 15:31:00 78 mm[Hg] [facility] Heart rate 2022-08-18 15:31:00 59 /min [facility] Body temperature 2022-08-18 15:31:[address] [facility] Respiratory rate 2022-08-18 15:31:00 18 /min [facility] Body height 2022-08-18 15:31:00 157.5 cm [facility] Body weight 2022-08-18 15:31:00 58.287 kg [facility] BMI 2022-08-18 15:31:00 23.50 kg/m2 [facility] Oxygen saturation in Arterial blood by Pulse oximetry 2022-08-18 15:31:00 99 /min [facility] Systolic blood pressure 2022-06-03 15:14:00 126 mm[Hg] [facility] Diastolic blood pressure 2022-06-03 15:14:00 81 mm[Hg] [facility] Heart rate 2022-06-03 15:14:00 77 /min [facility] Body temperature 2022-06-03 15:14:[address] [facility] Body height 2022-06-03 15:14:00 157.5 cm [facility] Body weight 2022-06-03 15:14:00 56.246 kg [facility] BMI 2022-06-03 15:14:00 22.68 kg/m2 [facility] Systolic blood pressure 2022-05-23 13:01:00 133 mm[Hg] [facility] Diastolic blood pressure 2022-05-23 13:01:00 89 mm[Hg] [facility] Heart rate 2022-05-23 13:01:00 88 /min [facility] Body temperature 2022-05-23 13:01:[address] [facility] Respiratory rate 2022-05-23 13:01:00 16 /min [facility] Oxygen saturation in Arterial blood by Pulse oximetry 2022-05-23 13:01:00 99 /min [facility] Body weight 2022-05-20 23:15:00 55.792 kg [facility] BMI 2022-05-20 23:15:00 22.50 kg/m2 [facility] Systolic blood pressure 2022-05-21 16:45:00 145 mm[Hg] [facility] Diastolic blood pressure 2022-05-21 16:45:00 83 mm[Hg] [facility] Respiratory rate 2022-05-21 16:45:00 16 /min [facility] Oxygen saturation in Arterial blood by Pulse oximetry 2022-05-21 16:45:00 100 /min [facility] Heart rate 2022-05-21 16:20:00 85 /min [facility] Body temperature 2022-05-21 16:20:[address] [facility] Body weight 2022-05-20 23:15:00 55.792 kg [facility] BMI 2022-05-20 23:15:00 22.50 kg/m2 [facility] Systolic blood pressure 2022-05-08 19:04:00 148 mm[Hg] [facility] Diastolic blood pressure 2022-05-08 19:04:00 89 mm[Hg] [facility] Heart rate 2022-05-08 19:04:00 83 /min [facility] Body temperature 2022-05-08 19:04:[address] [facility] Body height 2022-05-08 19:04:00 157.5 cm [facility] Body weight 2022-05-08 19:04:00 55.656 kg [facility] BMI 2022-05-08 19:04:00 22.44 kg/m2 [facility] Oxygen saturation in Arterial blood by Pulse oximetry 2022-05-08 19:04:00 100 /min [facility] Systolic blood pressure 2022-03-31 16:36:00 126 mm[Hg] [facility] Diastolic blood pressure 2022-03-31 16:36:00 86 mm[Hg] [facility] Heart rate 2022-03-31 16:36:00 76 /min [facility] Body temperature 2022-03-31 16:36:[address] [facility] Respiratory rate 2022-03-31 16:36:00 16 /min [facility] Body height 2022-03-31 16:36:00 157.5 cm [facility] Body weight 2022-03-31 16:36:00 55.702 kg [facility] BMI 2022-03-31 16:36:00 22.46 kg/m2 [facility] BP Systolic 2022-07-14 11:21:00 123 mm[Hg] [...] /min Respiratory Rate 2019-04-25 12:04:00 18.00 /min Weight Measured 2019-04-06 12:17:00 158.20 pounds Height Measured 2019-04-06 12:17:00 62.50 inches Body Temperature 2019-04-06 12:17:00 99.00 degrees Heart Rate 2019-04-06 12:17:00 88.00 /min Respiratory Rate 2019-04-06 12:17:00 16.00 /min BP Systolic 2019-04-06 12:17:00 116 mm[Hg] BP Diastolic 2019-04-06 12:17:00 79 mm[Hg] Procedures Procedure Date / Time Performed Performing Clinician Source XR CHEST 2 VW 2024-03-29 21:14:00 Jesus Garay [facility] C4 COMPLEMENT 2023-11-03 21:35:00 Shea Sebastian [facility] THYROID STIMULATING HORMONE 2023-11-03 21:35:[address] [facility] URINALYSIS 2023-11-03 21:35:00 Shea Sebastian [facility] VITAMIN D, 25-OH 2023-11-03 21:35:00 Shea Sebastian [facility] ANTI-CENTROMERE B 2023-11-03 21:35:[address] [facility] ANTI-SSA(RO) 2023-11-03 21:35:00 Shea Sebastian [facility] ANTI-DOUBLE STRANDED DNA 2023-11-03 21:35:[address] [facility] XR CERVICAL SPINE 2 2023-10-01 21:45:[address] [facility] ASSIGNMENT OF BENEFITS 2023-06-15 18:19:46 Docto r Unassigned, [place] [facility] URINALYSIS 2022-11-04 15:50:00 Marciano Wayne [facility] BASIC METABOLIC PANEL (NA, K, CL, CO2, GLUCOSE, BUN, CREATININE, CA) 2022-11-04 15:30:[address] [facility] CBC WITH DIFF 2022-11-04 15:30:00 Marciano Wayne [facility] CONSENT/REFUSAL FOR DIAGNOSIS AND TREATMENT 2022-11-04 13:58:51 Doctor Unassigned, [place] [facility] US PELVIS COMPLETE WITH TRANSVAGINAL 2022-10-28 18:57:[address] [facility] CBC WITH DIFF 2022-10-15 21:08:00 Felisa Davis [facility] PATIENT QUESTIONNAIRE 2022-08-18 06:01:00 Doctor Unassigned, [place] [facility] CBC WITH DIFF 2022-05-23 10:24:00 [facility]FF 2022-05-22 10:42:00 [facility] INCISION AND DRAINAGE ORAL CAVITY 2022-05-21 15:35:[address] [facility] TOOTH EXTRACTION 2022-05-21 15:35:[address] [facility] INCISION AND DRAINAGE ORAL CAVITY 2022-05-21 15:35:[address] [facility] TOOTH EXTRACTION 2022-05-21 15:35:[address] [facility] CBC WITH DIFF 2022-05-21 09:58:00 [facility]FF 2022-05-21 09:58:00 [facility] 2022-05-21 01:00:[address] [facility] CT MAXILLOFACIAL/MANDIBLE W CONTRAST 2022-05-21 01:00:[address] [facility] COMP. METABOLIC PANEL (28559) 2022-05-21 00:37:[address] [facility] CBC WITH DIFF 2022-05-21 00:37:[address] [facility] COMP. METABOLIC PANEL ([id number]) 2022-05-21 00:37:[address] [facility] CBC WITH DIFF 2022-05-21 00:37:[address] [facility] CONSENT/REFUSAL FOR DIAGNOSIS AND TREATMENT 2022-05-20 23:16:33 Doctor Unassigned, [place] [facility] CONSENT/REFUSAL FOR DIAGNOSIS AND TREATMENT 2022-05-20 23:16:33 Doctor Unassigned, [place] [facility] DISCLOSURE AND CONSENT, MEDICAL AND SURGICAL PROCEDURES 2022-05-08 05:01:00 Doctor Unassigned, [place] [facility] REFERRAL- REQUEST/RESPONSE 2022-04-24 05:01:00 Doctor Unassigned, [place] [facility] Plan of Care Planned Activity Planned Date Details Comments Source Goal Plan of Care Note [code = 52085-2] Goal Plan of Care Note [code = 04373-4] Goal Plan of Care Note [code = 99959-1] Goal Plan of Care Note [code = 85798-3] Goal Plan of Care Note [code = 19619-9] Goal Plan of Care Note [code = 82651-8] Goal Plan of Care Note [code = 15395-9] Goal Plan of Care Note [code = 65781-7] Goal Plan of Care Note [code = 90711-7] Goal Plan of Care Note [code = 96918-5] Goal Plan of Care Note [code = 21148-7] Goal Plan of Care Note [code = 30644-3] Goal Plan of Care Note [code = 33089-3] Goal Plan of Care Note [code = 72470-3] Goal Plan of Care Note [code = 92678-5] Goal Plan of Care Note [code = 05723-6] Goal Plan of Care Note [code = 88806-2] Goal Plan of Care Note [code = 14238-3] Goal Plan of Care Note [code = 81700-6] Goal Plan of Care Note [code = 13302-0] Goal Plan of Care Note [code = 88396-3] Encounters Start Date/Time End Date/Time Encounter Type Admission Type Attending [facility] Care Facility Care Department Encounter ID Source 2021-12-24 13:43:15 Outpatient ANTONY PACHECO [facility] [id number] [facility] 2021-12-23 07:21:46 Outpatient R ANTONY JOSHUA [facility] [id number] [facility] 2024-07-05 13:00:00 2024-07-05 13:00:00 [id number] 2024-04-21 00:00:00 2024-05-28 18:24:33 Patient Secure Msg Doctor Unassigned, [place] Doctor Unassigned, [place] [facility] 1.2.840.114 350.1.13.10 4.2.7.2.686 [id number] [facility] 2024-04-25 11:15:00 2024-04-25 11:15:00 Outpatient R [facility] [id number] [facility] 2024-04-22 15:30:00 2024-04-22 15:30:00 Outpatient R HUGH SYLVESTER ELISHA [facility] [id number] [facility] 2024-04-21 12:30:00 2024-04-21 12:30:00 Outpatient R ZEV VILLA [facility] [id number] [facility] 2024-04-04 00:00:00 2024-04-04 00:00:00 Outpatient R ELIU BARNSE [facility] [id number] [facility] 2024-03-29 16:05:23 2024-03-29 23:59:00 Hospital Encounter Eliu Barnes [facility] 1..840.114 350.1.13.10 4.2.7.2.686 [id number] [facility] 2024-03-29 15:45:00 2024-03-29 16:00:00 Animation Artist Visit Pcp-Lab Eilu Barnes Pcp-Lab [facility] 1..840.114 350.1.13.10 4.2.7.2.686 [id number] [facility] 2024-03-29 14:30:00 2024-03-29 15:31:45 Outpatient R ELIU BARNES [facility] [id number] [facility] 2024-03-29 14:30:00 2024-03-29 15:31:45 [facility] 1..840.114 350.1.13.10 4.2.7.2.686 [id number] [facility] 2024-03-29 00:00:00 2024-03-29 10:15:31 Telephone Jesus Garay [facility] 1.2.840.114 350.1.13.10 4.2.7.2.686 [id number] [facility] 2024-03-23 00:00:00 2024-03-23 11:03:37 Patient Outreach Daphnie Dawson Michelle J [facility] 1.2.840.114 350.1.13.10 4.2.7.2.686 [id number] [facility] 2024-03-22 13:40:00 2024-03-22 15:33:34 Outpatient LEN LIANG [facility] [id number] [facility] 2024-03-22 13:40:00 2024-03-22 15:33:34 Office Visit Jesus Garay [facility] 1.2.840.114 350.1.13.10 4.2.7.2.686 [id number] [facility] 2024-03-21 08:00:00 2024-03-21 08:00:00 Outpatient NILA STUBBS [facility] [id number] [facility] 2024-02-05 14:15:00 2024-02-05 14:15:00 Outpatient SHEA LEWIS LAURA [facility] [id number] [facility] 2024-02-04 15:15:00 2024-02-04 15:15:00 Outpatient SHEA LEWIS LAURA [facility] [id number] [facility] 2024-01-12 13:30:00 2024-01-12 13:30:00 Outpatient ZEV JULIEN [facility] [id number] [facility] 2023-12-07 11:00:00 2023-12-07 11:00:00 Outpatient JIMMY NIELSON [facility] [id number] [facility] 2023-11-24 00:00:00 2023-11-24 00:00:00 Telephone Zev Villa [facility] 1.840.114 350.1.13.10 4.2.7.2.686 [id number] [facility] 2023-11-19 15:30:00 2023-11-19 15:30:00 Outpatient JIMMY NIELSON [facility] [id number] [facility] 2023-11-17 00:00:00 2023-11-17 00:00:00 Outpatient ZEV JULIEN [facility] [id number] [facility] 2023-11-13 00:00:00 2023-11-13 00:00:00 Telephone Anne Llanos [facility] 1.0.114 350.1.13.10 4.2.7.2.686 [id number] [facility] 2023-11-10 10:00:00 2023-11-10 10:48:16 Outpatient R ZEV VILLA [facility] [id number] [facility] 2023-11-10 10:00:00 2023-11-10 10:48:16 Office Visit Zev Villa [facility] 1.0.114 350.1.13.10 4.2.7.2.686 [id number] [facility] 2023-11-10 00:00:00 2023-11-10 00:00:00 Telephone Zev Villa [facility] 1.840.114 350.1.13.10 4.2.7.2.686 [id number] [facility] 2023-11-03 16:45:00 2023-11-03 17:00:00 Animation Artist Visit Pcp-Lab Shea Sebastian [facility] 1.2.840.114 350.1.13.10 4.2.7.2.686 [id number] [facility] 2023-11-03 16:45:00 2023-11-03 16:45:00 Outpatient R SHEA SEBASTIAN LAURA [facility] [id number] [facility] 2023-11-03 16:15:00 2023-11-03 16:24:45 Office Visit Shea Sebastian [facility] 1.2.840.114 350.1.13.10 4.2.7.2.686 [id number] [facility] 2023-10-26 00:00:00 2023-10-26 00:00:00 Telephone Song Chang [facility] 1.2.840.114 350.1.13.10 4.2.7.2.686 [id number] [facility] 2023-10-01 15:26:42 2023-10-01 23:59:00 Hospital Encounter Song Chang [facility] 1.2.840.114 350.1.13.10 4.2.7.2.686 [id number] [facility] 2023-10-01 15:00:00 2023-10-01 15:15:00 Animation Artist Visit Vtc-Lab Song Chang [facility] 1.2.840.114 350.1.13.10 4.2.7.2.686 [id number] [facility] 2023-10-01 13:45:00 2023-10-01 14:52:53 Outpatient R SONG CHANG PETER [facility] [id number] [facility] 2023-10-01 13:45:00 2023-10-01 14:52:53 Office Visit Song [facility] 1.840.114 350.1.13.10 4.2.7.2.686 [id number] [facility] 2023-07-14 09:00:00 2023-07-14 09:00:00 Outpatient Shari LLANOS ANNE [facility] [id number] [facility] 2023-07-13 08:00:00 2023-07-13 08:48:11 Outpatient ANNE ALVAREZ [facility] [id number] [facility] 2023-07-13 08:00:00 2023-07-13 08:48:11 [facility] 1..840.114 350.1.13.10 4.2.7.2.686 [id number] [facility] 2023-06-15 14:00:00 2023-06-15 14:35:44 Outpatient LOLY ALVAREZSSICA [facility] [id number] [facility] 2023-06-15 14:00:00 2023-06-15 14:35:44 [facility] 1..840.114 350.1.13.10 4.2.7.2.686 [id number] [facility] 2023-06-15 00:00:00 2023-06-15 00:00:00 Orders Only Doctor Unassigned, [place] [facility] 1..840.114 350.1.13.10 4.2.7.2.686 [id number] [facility] 2023-05-18 14:30:00 2023-05-18 14:30:00 Outpatient DIANE SCHULTZA [facility] [id number] [facility] 2023-04-01 00:00:00 2023-04-01 00:00:00 Patient Secure Msg Doctor Unassigned, [place] [facility] 1.0.114 350.1.13.10 4.2.7.2.686 [id number] [facility] 2023-03-31 00:00:00 2023-03-31 00:00:00 Patient Secure Msg Doctor Unassigned, [place] [facility] 1.0.114 350.1.13.10 4.2.7.2.686 [id number] [facility] 2022-11-14 00:00:00 2022-11-14 00:00:00 Patient Secure Msg Doctor Unassigned, [place] [facility] ATTEND[facility] 1..114 350.1.13.10 4.2.7.2.686 [id number] [facility] 2022-11-07 13:00:00 2022-11-07 13:54:22 Outpatient MARINO LOERA [facility] [id number] [facility] 2022-11-07 13:00:00 2022-11-07 13:54:22 Office Visit Pgy3 Marino Wills L [facility] 1..114 350.1.13.10 4.2.7.2.686 [id number] [facility] 2022-11-04 09:06:00 2022-11-04 15:02:00 Emergency X MARCIANO WAYNE [facility] [id number] [facility] 2022-11-04 09:06:00 2022-11-04 15:02:00 Emergency Marciano [facility] 1..114 350.1.13.10 4.2.7.2.686 [id number] [facility] 2022-11-03 00:00:00 2022-11-03 00:00:00 Telephone [facility][1] 1.2.840.114 350.1.13.10 4.2.7.2.686 [id number] [facility] 2022-10-28 13:07:55 2022-10-28 23:59:00 Outpatient R RYAN [facility] [id number] [facility] 2022-10-28 13:07:55 2022-10-28 23:59:00 Hospital Encounter [facility][1] 1..840.114 350.1.13.10 4.2.7.2.686 [id number] [facility] 2022-10-15 13:30:00 2022-10-15 15:10:01 Outpatient R RYAN [facility] [id number] [facility] 2022-10-15 13:30:00 2022-10-15 15:10:01 Office Visit [facility][1] 1..840.114 350.1.13.10 4.2.7.2.686 [id number] [facility] 2022-08-18 11:30:00 2022-08-18 11:45:00 Animation Artist Visit Pcp-Lab Jimmy Carroll [facility] 1..840.114 350.1.13.10 4.2.7.2.686 [id number] [facility] 2022-08-18 09:40:00 2022-08-18 10:58:45 Outpatient JIMMY NIELSON [facility] [id number] [facility] 2022-08-18 09:40:00 2022-08-18 10:58:45 Office Visit Sharan Benjamin Samuel E [facility] 1.2.840.114 350.1.13.10 4.2.7.2.686 [id number] [facility] 2022-08-18 00:00:00 2022-08-18 00:00:00 Orders Only Doctor Unassigned, [place] [facility] 1.2.840.114 350.1.13.10 4.2.7.2.686 [id number] [facility] 2022-07-22 14:00:34 2022-07-22 14:00:34 Outpatient [facility] [id number] Kp Chatman 2022-07-18 00:00:00 2022-07-18 00:00:00 Nurse Triage Katy Hadley [facility] 1.2.840.114 350.1.13.10 4.2.7.2.686 [id number] [facility] 2022-07-18 00:00:00 2022-07-18 00:00:00 Telephone [facility][1] 1.2.840.114 350.1.13.10 4.2.7.2.686 [id number] [facility] 2022-07-14 11:05:24 2022-07-14 11:05:24 Outpatient [facility] [id number] Kp Chatman 2022-07-14 00:00:00 2022-07-14 00:00:00 Outpatient Visit [id number] 2022-07-01 00:00:00 2022-07-01 00:00:00 Patient Outreach Simeon Skinner 1.2.840.114 350.1.13.10 4.2.7.2.686 [id number] [facility] 2022-06-16 00:00:00 2022-06-16 00:00:00 Patient Outreach Simeon Skinner ROCIOAna Cristina BERKOWITZMay ARAGON 1.2840.114 350.1.13.10 4.2.7.2.686 [id number] [facility] 2022-06-03 10:00:00 2022-06-03 10:23:42 Outpatient R SURESH BONILLA [facility] [id number] [facility] 2022-06-03 10:00:00 2022-06-03 10:23:42 Office Visit Suresh Bonilla [facility] 1.2.114 350.1.13.10 4.2.7.2.686 [id number] [facility] 2022-05-26 00:00:00 2022-05-26 00:00:00 Telephone Suresh Bonilla [facility] 1..114 350.1.13.10 4.2.7.2.686 [id number] [facility] 2022-05-20 18:17:00 2022-05-23 13:28:00 Outpatient X SURESH BONILLA [facility] [id number] [facility] 2022-05-20 18:17:00 2022-05-23 13:28:00 Emergency Cristy Lowe [facility] 1..114 350.1.13.10 4.2.7.2.686 [id number] [facility] 2022-05-23 00:00:00 2022-05-23 00:00:00 Transition of Care Peggy Benitez 1.2840.114 350.1.13.10 4.2.7.2.686 [id number] [facility] 2022-05-21 10:24:00 2022-05-21 11:48:00 Surgery Suresh Bonilla [facility] 1..114 350.1.13.10 4.2.7.2.686 [id number] [facility] 2022-05-20 00:00:00 2022-05-20 00:00:00 Telephone Chau Carver [facility] 1..114 350.1.13.10 4.2.7.2.686 [id number] [facility] 2022-05-08 14:00:00 2022-05-08 14:30:00 Office Visit Chau Carver [facility] 1..114 350.1.13.10 4.2.7.2.686 [id number] [facility] 2022-05-08 14:00:00 2022-05-08 14:00:00 Outpatient R CHAU CARVER [facility] [id number] [facility] 2022-05-08 00:00:00 2022-05-08 00:00:00 Orders Only Doctor Unassigned, [place] [facility] 1..114 350.1.13.10 4.2.7.2.686 [id number] [facility] 2022-04-29 10:00:00 2022-04-29 10:00:00 Outpatient SURESH MARSHALL [facility] [id number] [facility] 2022-04-24 00:00:00 2022-04-24 00:00:00 Orders Only Doctor Unassigned, [place] [facility] 1.2.114 350.1.13.10 4.2.7.2.686 [id number] [facility] 2022-03-31 11:15:00 2022-03-31 11:48:34 Office Visit Felisa Davis [facility] 1..114 350.1.13.10 4.2.7.2.686 [id number] [facility] 2022-03-31 11:15:00 2022-03-31 11:48:34 Outpatient R RYAN [facility] [id number] [facility] 2022-03-31 11:15:00 2022-03-31 11:15:00 Outpatient R RYAN [facility] [id number] [facility] 2022-01-25 00:00:00 2022-01-25 00:00:00 [facility]phone [facility] 1.840.114 350.1.13.10 4.2.7.2.686 [id number] [facility] 2022-01-23 05:56:00 2022-01-24 16:20:00 [facility] [id number] [facility] 2022-01-23 05:56:00 2022-01-24 16:20:00 Hospital Encounter [facility] 1.2840.114 350.1.13.10 4.2.7.2.686 [id number] [facility] 2022-01-23 07:00:00 2022-01-23 12:15:00 Surgery [facility] 1.2.840.114 350.1.13.10 4.2.7.2.686 [id number] [facility] 2022-01-23 00:00:00 2022-01-23 00:00:00 Orders Only Doctor Unassigned, [place] [facility] 1.2.840.114 350.1.13.10 4.2.7.2.686 [id number] [facility] 2022-01-21 00:00:00 2022-01-21 00:00:00 Telephone Pgy3 [facility] 1.2840.114 350.1.13.10 4.2.7.2.686 [id number] [facility] 2022-01-20 00:00:00 2022-01-20 00:00:00 Telephone Arianna Locke [facility] 1.2840.114 350.1.13.10 4.2.7.2.686 [id number] [facility] 2022-01-16 00:00:00 2022-01-16 00:00:00 Patient Secure Msg Jewel [facility] 1..114 350.1.13.10 4.2.7.2.686 [id number] [facility] 2022-01-15 07:44:45 2022-01-15 23:59:00 Outpatient R [facility]ERT[facility] [id number] [facility] 2022-01-15 07:43:28 2022-01-15 07:43:28 Outpatient R ALBERTO [facility] [id number] [facility] 2022-01-14 08:45:00 2022-01-14 09:00:00 Laboratory Only Only, Adc Test Jewel [facility] 1.2.114 350.1.13.10 4.2.7.2.686 [id number] [facility] 2022-01-14 08:45:00 2022-01-14 08:45:00 Outpatient R ALBERTO [facility] [id number] [facility] 2022-01-10 00:00:00 2022-01-10 00:00:00 Patient Outreach Melanie Lou 1.840.114 350.1.13.10 4.2.7.2.686 [id number] [facility] 2021-12-27 13:00:00 2021-12-27 13:00:00 Outpatient BENTLEY LEWIS [facility] [id number] [facility] 2021-12-27 13:00:00 2021-12-27 13:00:00 Outpatient R BENTLEY HERRON [facility] [id number] [facility] 2021-12-27 09:00:00 2021-12-27 09:00:00 [facility] [id number] [facility] 2021-12-25 10:00:00 2021-12-25 10:29:11 Office Visit Jewel [facility] 1.840.114 350.1.13.10 4.2.7.2.686 [id number] [facility] 2021-12-25 10:00:00 2021-12-25 10:29:11 [facility] [id number] [facility] 2021-12-25 10:00:00 2021-12-25 10:00:00 [facility] [id number] [facility] 2021-12-22 00:00:00 2021-12-22 00:00:00 [facility] .840.114 350.1.13.10 4.2.7.2.686 [id number] [facility] 2021-12-22 00:00:00 2021-12-22 00:00:00 [facility] 350.1.13.10 4.2.7.2.686 [id number] [facility] 2021-12-22 00:00:00 2021-12-22 00:00:00 [facility] 1..114 350.1.13.10 4.2.7.2.686 [id number] [facility] 2021-12-18 00:00:00 2021-12-18 00:00:00 Patient Secure Msg Doctor Unassigned, [place] [facility] 1.0.114 350.1.13.10 4.2.7.2.686 [id number] [facility] 2021-12-11 15:30:00 2021-12-11 15:30:00 Outpatient R ANTONY JOSHUA [facility] [id number] [facility] 2021-12-09 10:45:00 2021-12-09 11:00:00 Laboratory Only Only, Adc Test Shawn Agudelo [facility] 1.0.114 350.1.13.10 4.2.7.2.686 [id number] [facility] 2021-12-09 10:45:00 2021-12-09 10:45:[address] [facility] [id number] [facility] 2021-12-09 10:45:00 2021-12-09 10:45:[address] [facility] [id number] [facility] 2021-12-09 00:00:00 2021-12-09 00:00:00 Telephone Theodora Gonzalez [facility] 1..114 350.1.13.10 4.2.7.2.686 [id number] [facility] 2021-12-06 15:32:00 2021-12-06 17:11:00 Emergency X SENA JONES [facility] ERT [id number] [facility] 2021-12-06 15:32:00 2021-12-06 17:11:00 Emergency Sena Jones [facility] 1..114 350.1.13.10 4.2.7.2.686 [id number] [facility] 2021-12-06 15:32:00 2021-12-06 17:11:00 Emergency X SENA JONES [facility] ERT [id number] [facility] 2021-12-06 15:32:00 2021-12-06 15:32:00 Emergency X SENA JONES [facility] ERT [id number] [facility] 2021-12-06 13:10:00 2021-12-06 13:40:00 Office Visit Alejandro Benites, Attending [facility] PAVJUANCARLOS ..840.114 350.1.13.10 4.2.7.2.686 [id number] [facility] 2021-12-06 13:10:00 2021-12-06 13:10:00 Outpatient R UNKNOWN, ATTENDING [facility] [id number] [facility] 2021-12-06 13:10:00 2021-12-06 13:10:00 Outpatient R UNKNOWN, ATTENDING [facility] [id number] [facility] 2021-12-06 13:10:00 2021-12-06 13:10:00 Outpatient R SON SELBY [facility] [id number] [facility] 2021-12-06 00:00:00 2021-12-06 00:00:00 Case Management Montse Shane [facility] ..840.114 350.1.13.10 4.2.7.2.686 [id number] [facility] 2021-12-05 04:22:00 2021-12-05 04:22:00 Outpatient Leonid CORTES [facility] [id number] [facility] 2021-12-05 00:00:00 2021-12-05 00:00:00 Case Management Joshua, Hardy Hany [facility] 1.2.840.114 350.1.13.10 4.2.7.2.686 [id number] [facility] 2021-12-05 00:00:00 2021-12-05 00:00:00 Telephone [facility] [place] 1.2.840.114 350.1.13.10 4.2.7.2.686 [id number] [facility] 2021-11-29 13:00:00 2021-11-29 13:00:00 Outpatient R BENTLEY HERRON [facility] [id number] [facility] 2021-11-28 00:00:00 2021-11-28 00:00:00 Prep For Surgery [facility] [place] 1.2.840.114 350.1.13.10 4.2.7.2.686 [id number] [facility] 2021-11-28 00:00:00 2021-11-28 00:00:00 [facility] 1.2.840.114 350.1.13.10 4.2.7.2.686 [id number] [facility] 2021-11-22 09:07:00 2021-11-22 16:38:00 Outpatient R EMILY RIVERA [facility] [id number] [facility] 2021-11-22 09:07:00 2021-11-22 16:38:00 Hospital Encounter Miugel [facility] 1.2.840.114 350.1.13.10 4.2.7.2.686 [id number] [facility] 2021-11-22 11:05:00 2021-11-22 13:43:00 Surgery Miguel [facility] 1.2.840.114 350.1.13.10 4.2.7.2.686 [id number] [facility] 2021-11-22 00:00:00 2021-11-22 00:00:00 [facility] 1.84.114 350.1.13.10 4.2.7.2.686 [id number] [facility] 2021-11-21 13:15:00 2021-11-21 13:18:56 Outpatient EMILY NAVAS [facility] [id number] [facility] 2021-11-21 13:15:00 2021-11-21 13:18:56 Laboratory Only Only, [facility] Test Emily Rivera [facility] 1.84.114 350.1.13.10 4.2.7.2.686 [id number] [facility] 2021-11-21 09:00:00 2021-11-21 09:00:00 Outpatient EMILY NAVAS [facility] [id number] [facility] 2021-11-18 11:41:00 2021-11-18 17:07:00 Emergency X SABINO DUMONT [facility] [id number] [facility] 2021-11-18 11:41:00 2021-11-18 17:07:00 Emergency Sabino Dumont [facility] 1..114 350.1.13.10 4.2.7.2.686 [id number] [facility] 2021-11-12 13:00:00 2021-11-12 15:18:33 Office Visit Pgy3 Felisa Davis [facility] 1..114 350.1.13.10 4.2.7.2.686 [id number] [facility] 2021-11-12 13:00:00 2021-11-12 15:18:33 Outpatient FELISA HUTCHINSON [facility] [id number] [facility] 2021-11-12 13:00:00 2021-11-12 13:00:00 Outpatient R RYANFELISA [facility] [id number] [facility] 2021-11-12 13:00:00 2021-11-12 13:00:00 Outpatient R RYAN, FELISA [facility] [id number] [facility] 2021-11-12 00:00:00 2021-11-12 00:00:00 Orders Only Doctor Unassigned, [place] [facility] 1.840.114 350.1.13.10 4.2.7.2.686 [id number] [facility] 2021-10-29 00:00:00 2021-10-29 00:00:00 Telephone Felisa Davis [facility] 1..840.114 350.1.13.10 4.2.7.2.686 [id number] [facility] 2021-10-24 13:15:00 2021-10-24 15:47:39 Outpatient R FRANKLYN CASTILLO [facility] [id number] [facility] 2021-10-24 13:15:00 2021-10-24 15:47:39 Outpatient FRANKLYN LASSITER [facility] [id number] [facility] 2021-10-24 13:15:00 2021-10-24 15:47:39 Outpatient R FRANKLYN CASTILLO [facility] [id number] [facility] 2021-10-24 13:15:00 2021-10-24 15:47:39 Office Visit Pgy2 Felisa Davis Otto [facility] 1.840.114 350.1.13.10 4.2.7.2.686 [id number] [facility] 2021-10-24 13:15:00 2021-10-24 13:15:00 Outpatient R FRANKLYN CASTILLO [facility] [id number] [facility] 2021-10-24 00:00:00 2021-10-24 00:00:00 Telephone Jack Ott [facility] 1.840.114 350.1.13.10 4.2.7.2.686 [id number] [facility] 2021-10-09 13:40:00 2021-10-10 14:24:00 Outpatient X MARINO WILLS [facility] [employer] [id number] [facility] 2021-10-09 13:40:00 2021-10-10 14:24:00 Outpatient X MARINO WILLS [facility] [id number] [facility] 2021-10-09 13:40:00 2021-10-10 14:24:00 Emergency Alma Rosa Sethi Marino [facility] 1.840.114 350.1.13.10 4.2.7.2.686 [id number] [facility] 2021-10-10 00:00:00 2021-10-10 00:00:00 Telephone Catalina Cm [facility] 1.0.114 350.1.13.10 4.2.7.2.686 [id number] [facility] 2021-10-10 00:00:00 2021-10-10 00:00:00 Telephone Luis AlbertoAlma Rosa quintero Shea [facility] 1.840.114 350.1.13.10 4.2.7.2.686 [id number] [facility] 2021-07-15 00:00:00 2021-07-15 00:00:00 Orders Only Doctor Unassigned, [place] [facility] 1.840.114 350.1.13.10 4.2.7.2.686 [id number] [facility] 2021-07-02 00:00:2021-07-02 00:00:00 Telephone Pcp, Patient Does Not Have A [facility] [address] [facility] 1.2.840.114 350.1.13.10 4.2.7.2.686 [id number] [facility] 2020-02-22 12:29:09 2020-02-22 15:00:00 [facility] 1.2.840.114 350.1.13.10 4.2.7.2.686 [id number] 2020-02-22 12:29:09 2020-02-22 15:00:00 Emergency Curt Kemp [facility] 1.2.840.114 350.1.13.10 4.2.7.2.686 [id number] [facility] 2020-02-22 12:29:09 2020-02-22 12:29:09 Emergency X Curt KEMP [facility] ERT [id number] [facility] 2020-01-30 08:36:00 2020-01-30 08:36:00 Outpatient [facility] [id number] [facility] 2020-01-28 01:01:00 2020-01-28 01:01:00 Outpatient [facility] [id number] [facility] 2019-12-02 11:44:00 2019-12-02 11:44:00 Outpatient [facility] [id number] [facility] 2019-01-07 10:23:00 2019-01-07 12:27:00 Outpatient E ZEV PAEZ [facility] [id number] [facility] 2018-12-04 10:20:00 2018-12-04 15:57:00 Outpatient E KEYUR PUENTE [facility] [id number] [facility] 2018-11-11 04:05:00 2018-11-11 06:00:00 Outpatient E MARKELL HUNT [facility] [id number] [facility] 2018-10-12 06:24:00 2018-10-12 08:08:00 Outpatient E PAULINE REDDY [facility] [id number] [facility] 2018-09-30 13:45:00 2018-09-30 14:12:00 Outpatient E MELANIE LAI [facility] [id number] [facility] 2018-09-04 17:32:00 2018-09-04 18:30:00 Outpatient E MELANIE LAI [facility] [id number] [facility] 2018-08-19 08:43:00 2018-08-19 10:15:00 Outpatient E HANY LAWRENCE [facility] [id number] [facility] 2018-08-08 13:34:00 2018-08-08 16:43:00 Outpatient E DARÍO CHAMBERS [facility] [id number] [facility] Results Test Description Test Time Test [...] osseous lesions or acute osseous findingsare detected. [facility]20[facility]-04 16:29:12* Test Item Value Reference Range Interpretation Comme nts Anti-Neely (test code = 9414445488) Negative Negative PARTH (test code = PARTH) Positive - Antibod y detected.Negative - No antibody detected. Lab Interpretation (test code = 45651-3) Normal [facility]Ijbnjfdzgvmmslkpa2915-86-20 16:29:12* Test Item Value Reference Range Interpretation Comme nts Anti-Ribonucleoprotein (test code = 0471021158) Negative Negative PARTH (test code = PARTH) Positive - Antibod y detected.Negative - No antibody detected. Lab Interpretation (test code = 56581-2) Normal [facility]romere [id number] 16:29:12* Test Item Value Reference Range Interpretation Comme nts ANTI-CENTR (test code = 1179327051) Negative Negative PARTH (test code = PARTH) Positive - Antibod y detected.Negative - No antibody detected. Lab Interpretation (test code = 24239-5) Normal [facility]-SCL-[id number] 16:29:12* Test Item Value Reference Range Interpretation Comme nts ANTI-SCL70 (test code = 5978146729) Negative Negative PARTH (test code = PARTH) Positive - Antibod y detected.Negative - No antibody detected. Lab Interpretation (test code = 63586-7) Normal [facility]RO)2023-11-04 16:29:12* Test Item Value Reference Range Interpretation Comme nts ANTI-SSA(RO) (test code = 8881316528) Positive Negative A PARTH (test code = PARTH) Positive - Antibod y detected.Negative - No antibody detected. Lab Interpretation (test code = 39785-6) Abnormal [facility]([place])2023-11-04 16:29:12* Test Item Value Reference Range Interpretation Comme nts Anti-SSB(LA) (test code = 2254490626) Negative Negative PARTH (test code = PARTH) Positive - Antibod y detected.Negative - No antibody detected. Lab Interpretation (test code = 31216-2) Normal [facility] HospitalC3 Dbqqdnprux1400-90-04 16:28:24* Test Item Value Reference Range Interpretation Comme nts C3 (test code = 2193843087) 110 mg/dL 86-184 Lab Interpretation (test cod e = 06909-5) Normal [facility] HospitalC4 Vanpbkyvak8132-96-48 16:28:24* Test Item Value Reference Range Interpretation Comme nts C4 (test code = 5145789034) 19 mg/dL 20-59 L Lab Interpretation (test cod e = 41039-6) Abnormal [facility] HospitalThyroid Stimulating Lnipdde9165-29-12 01:19:27 * Test Item Value Reference Range Interpretation Comme nts TSH (test code = 7540553020) 0.95 0.45-4.70 Biotin has been reported to cause a negative bias, interpret results relative to patient's use of biotin. Lab Interpretation (test code = 36458-7) Normal [facility] HospitalVitamin D, 16-[id number] 00:57:43* Test Item Value Reference Range Interpretation Comme nts VIT D 25OH (test code = 20900-5) 37 ng/mL 25-80 PARTH (test code = PARTH) Deficiency: <20 ng/mLInsufficiency : 20-24 ng/mLOptimal: 25-80 ng/mL Lab Interpretation (test code = 81616-0) Normal [facility] HospitalXR CERVICAL SPINE 2 [id number] 22:34:22XR CERVICAL SPINE 2 VW HISTORY: Female 43 years neck pain COMPARISON: None FINDINGS: The vertebral bodies are normal in height and in normal alignment. Theatlantodental space is normal. The prevertebral soft tissues areunremarkable. Diffuse mild degenerative changes, most pronounced at the C6-C7 level. Noacute osseous abnormality.[facility] HospitalBASIC METABOLIC PANEL (NA, K, CL, CO2, GLUCOSE, BUN, CREATININE, CA)2022-11-04 15:48:28* Test Item Value Reference Range Interpretation Comme nts NA (test code = 8609586302) 137 mmol/L 135-145 K (test code = 0847954332) 4.1 mmol/L 3.5-5.0 CL (test code = 2968971487) 106 mmol/L 98-108 CO2 TOTAL (test code = 0953852413) 23 mmol/L 23-31 AGAP (test code = 8957510936) 8 2-16 BUN (test code = 9991656236) 12 mg/dL 7-23 GLUCOSE (test code = 4128957548) 109 mg/dL 70-110 CREATININE (test code = 9260891155) 0.44 mg/dL 0.50-1.04 L CALCIUM (test code = 1628901208) 8.8 mg/dL 8.6-10.6 eGFR (test code = 0910027782) 156.8 mL/min/1.73m2 PARTH (test code = PARTH) [...] imaging tests). Lab Interpretation (test code = 42750-7) Abnormal [facility] WITH [id number] 15:38:28* Test Item Value Reference Range Interpretation Comme nts WBC (test code = 6690-2) 8.04 See_Comment [Automated Machinima] The system which generated this result transmitted reference range: 4.30 - 11.10 10*3/?L. The reference range was not used to interpret this result as normal/abnormal. RBC (test code = 789-8) 4.38 See_Comment [Automated Mach[employer]] The system which generated this result transmitted [...] 34.1 g/dL 31.6-35.1 RDW-SD (test code = 74258-3) 42.8 fL 39.0-49.9 RDW-CV (test code = 788-0) 13.0 % 12.0-15.5 PLT (test code = 777-3) 288 See_Comment [Automated messa ge] The system which generated this result transmitted reference range: 166 - 358 10*3/?L. The reference range was not used to interpret this result as normal/abnormal. MPV (test code = 67597-0) 10.2 fL 9.5-12.9 NRBC/100 WBC (test code = 7124499013) 0.0 See_Comment [Automated me ssage] The system which generated this result transmitted reference range: 0.0 - 10.0 /100 WBCs. The reference range was not used to interpret this result as normal/abnormal. NRBC x10^3 (test code = 6103066425) See_Comment [Automated me ssage] The system which generated this result transmitted reference range: 10*3/?L. The reference range was not used to interpret this result as normal/abnormal. GRAN MAT (NEUT) % (test code = 770-8) 61.9 % IMM GRAN % (test code = 9217912927) 0.20 % LYMPH % (test code = 736-9) 29.1 % MONO % (test code = 5905-5) 7.1 % EOS % (test code = 713-8) 1.2 % BASO % (test code = 706-2) 0.5 % GRAN MAT x10^3(ANC) (test code = 3353314629) 4.97 10*3/uL 1.88-7.09 IMM GRAN x10^3 (test code = 4789548956) 0.00-0.06 LYMPH x10^3 (test code = 731-0) 2.34 10*3/uL 1.32-3.29 MONO x10^3 (test code = 742-7) 0.57 10*3/uL 0.33-0.92 EOS x10^3 (test code = 711-2) 0.10 10*3/uL 0.03-0.39 BASO x10^3 (test code = 704-7) 0.04 10*3/uL 0.01-0.07 [facility], THIRD [id number] 06:23:27* Test Item Value Reference Range Interpretation Comme [facility] TSH, THIRD GENERATION (test code = 2821) 1.220 UIU/ML 0.400-4.100 VITAMIN [id number] 06:23:27* Test Item Value Reference Range Interpretation Comme [facility] VITAMIN B-12 (test code = 2840) 312 PG/ML 200-950 VITAMIN D, 25 [id number] 04:36:56* Test Item Value Reference Range Interpretation [...] . . . . NG/ML 30-100 HEMOGLOBIN [id number] 03:56:42* Test Item Value Reference Range Interpretation Comme [facility] HEMOGLOBIN A1c (test code = 08212) 5.8 % 4.2-5.6 H UNLESS OTHERWISE INDICATED, ALL TESTING PERFORMED AT[facility], [facility] [address] [place] [address] SCENE AND L[employer] DESIGN LECTURER: NAILA OATES M.D. CLIA NUMBER [id number] [facility] [place]. [id number] COMPREHENSIVE METABOLIC [id number] 03:29:09* Test Item Value Reference Range Interpretation Comme [facility] GLUCOSE (test code = 2217) 86 MG/DL 70-99 BUN (test code = 2208) 16 MG/DL 6-20 CREATININE (test code = 2214) 0.61 MG/DL 0.60-1.30 eGFR (2021 CKD-EPI) (test code = 63645) 115 ML/MIN/1.73 >60 CALC BUN/CREAT (test code [...] 30 U/L 5-40 CBC W/AUTO DIFF WITH [id number] 02:24:23* Test Item Value Reference Range Interpretation [...] 0.00-0.10 ABS NUCLEATED RBCS (test code = 49467) 0.00 K/UL 0.00-0.11 CBC WITH [id number] 10:42:11* Test Item Value Reference Range Interpretation Comme nts WBC (test code = 6690-2) See_Comment [Automated kinkona ge] The system which generated this result [...] 33.3 g/dL 31.6-35.1 RDW-SD (test code = 75826-2) 45.3 fL 39-49.9 RDW-CV (test code = 788-0) 13.3 % 12-15.5 PLT (test code = 777-3) See_Comment [Automated messa ge] The system which generated this result transmitted reference range: 166 - 358 10*3/?L. The reference range was not used to interpret this result as normal/abnormal. MPV (test code = 68861-2) 10.5 fL 9.5-12.9 NRBC/100 WBC (test code = 6642904329) See_Comment [Automated [employer] ssage] The system which generated this result transmitted reference range: 0.0 - 10.0 /100 WBCs. The reference range was not used to interpret this result as normal/abnormal. NRBC x10^3 (test code = 2221522675) See_Comment [Automated kinkona ge] The system which generated this result transmitted reference range: 10*3/?L. The reference range was not used to interpret this result as normal/abnormal. GRAN MAT (NEUT) % (test code = 770-8) 37.8 % IMM GRAN % (test code = 8933328812) 0.50 % LYMPH % (test code = 736-9) 51.2 % MONO % (test code = 5905-5) 8.1 % EOS % (test code = 713-8) 1.9 % BASO % (test code = 706-2) 0.5 % GRAN MAT x10^3(ANC) (test code = 5889582931) 2.43 10*3/uL 1.88-7.09 IMM GRAN x10^3 (test code = 8789809572) 0.03 10*3/uL 0-0.06 LYMPH x10^3 (test code = 731-0) 3.29 10*3/uL 1.32-3.29 MONO x10^3 (test code = 742-7) 0.52 10*3/uL 0.33-0.92 EOS x10^3 (test code = 711-2) 0.12 10*3/uL 0.03-0.39 BASO x10^3 (test code = 704-7) 0.03 10*3/uL 0.01-0.07 Lab Interpretation (test code = 82730-6) Abnormal [facility] WITH [id number] 10:58:56* Test Item Value Reference Range Interpretation [...] 34.0 g/dL 31.6-35.1 RDW-SD (test code = 66059-2) 46.4 fL 39-49.9 RDW-CV (test code = 788-0) 13.7 % 12-15.5 PLT (test code = 777-3) See_Comment [Automated messa ge] The system which generated this result transmitted reference range: 166 - 358 10*3/?L. The reference range was not used to interpret this result as normal/abnormal. MPV (test code = 75108-7) 11.5 fL 9.5-12.9 NRBC/100 WBC (test code = 4771949376) See_Comment [Automated me ssage] The system which generated this result transmitted reference range: 0.0 - 10.0 /100 WBCs. The reference range was not used to interpret this result as normal/abnormal. NRBC x10^3 (test code = 2084806034) See_Comment [Automated messa ge] The system which generated this result transmitted reference range: 10*3/?L. The reference range was not used to interpret this result as normal/abnormal. GRAN MAT (NEUT) % (test code = 770-8) 69.6 % IMM GRAN % (test code = 2453969238) 0.20 % LYMPH % (test code = 736-9) 22.6 % MONO % (test code = 5905-5) 7.3 % EOS % (test code = 713-8) 0.1 % BASO % (test code = 706-2) 0.2 % GRAN MAT x10^3(ANC) (test code = 9660417496) 8.81 10*3/uL 1.88-7.09 H IMM GRAN x10^3 (test code = 9767825260) 0.03 10*3/uL 0-0.06 LYMPH x10^3 (test code = 731-0) 2.86 10*3/uL 1.32-3.29 MONO x10^3 (test code = 742-7) 0.93 10*3/uL 0.33-0.92 H EOS x10^3 (test code = 711-2) 0.03-0.39 L BASO x10^3 (test code = 704-7) 0.01-0.07 Lab Interpretation (test code = 51161-6) Abnormal [facility]. METABOLIC PANEL ([id number])2022-05-21 01:01:28* Test Item Value Reference Range Interpretation Comme nts NA (test code = 4816655087) 139 mmol/L 135-145 K (test code = 9427582588) 3.6 mmol/L 3.5-5 CL (test code = 5093281827) 106 mmol/L 98-108 CO2 TOTAL (test code = 7488553595) 24 mmol/L 23-31 AGAP (test code = 5169711992) 2-16 BUN (test code = 6867910120) 10 mg/dL 7-23 GLUCOSE (test code = 5600947117) 96 mg/dL 70-110 CREATININE (test code = 6166455082) 0.44 mg/dL 0.5-1.04 L TOTAL BILI (test code = 9815121071) 1.0 mg/dL 0.1-1.1 CALCIUM (test code = 4676276812) 9.0 mg/dL 8.6-10.6 T PROTEIN (test code = 3378677661) 7.8 g/dL 6.3-8.2 ALBUMIN (test code = 9844320594) 4.6 g/dL 3.5-5 ALK PHOS (test code = 8958740668) 81 U/L 34-122 ALTv (test code = 1742-6) 11 U/L 5-35 AST(SGOT) (test code = 0117743313) 17 U/L 13-40 eGFR (test code = 7478469712) mL/min/1.73m2 PARTH (test code = PARTH) Association [...] imaging tests). Lab Interpretation (test code = 39828-6) [facility]normal [facility]53249)2022-05-21 01:01:28* Test Item Value Reference Range Interpretation Comme nts NA (test code = 9622400368) 139 mmol/L 135-145 K (test code = 4433084559) 3.6 mmol/L 3.5-5 CL (test code = 2048284227) 106 mmol/L 98-108 CO2 TOTAL (test code = 1247854644) 24 mmol/L 23-31 AGAP (test code = 9112329921) 2-16 BUN (test code = 8282041821) 10 mg/dL 7-23 GLUCOSE (test code = 2616879358) 96 mg/dL 70-110 CREATININE (test code = 2967741046) 0.44 mg/dL 0.5-1.04 L TOTAL BILI (test code = 5247614791) 1.0 mg/dL 0.1-1.1 CALCIUM (test code = 4624971412) 9.0 mg/dL 8.6-10.6 T PROTEIN (test code = 0151583683) 7.8 g/dL 6.3-8.2 ALBUMIN (test code = 9789231426) 4.6 g/dL 3.5-5 ALK PHOS (test code = 9150919146) 81 U/L 34-122 ALTv (test code = 1742-6) 11 U/L 5-35 AST(SGOT) (test code = 8642415618) 17 U/L 13-40 eGFR (test code = 2901000087) mL/min/1.73m2 PARTH (test code = PARTH) Association [...] imaging tests). Lab Interpretation (test code = 05880-4) Abnormal [facility] WITH [id number] 00:51:27* Test Item Value Reference Range Interpretation Comme nts WBC (test code = 6690-2) See_Comment H [[employer]] The system which generated this result transmitted reference range: 4.30 - 11.10 10*3/?L. The reference range was not used to interpret this result as normal/abnormal. RBC (test code = 789-8) See_Comment [[employer]] The system which generated this result transmitted [...] 33.3 g/dL 31.6-35.1 RDW-SD (test code = 10694-8) 45.4 fL 39-49.9 RDW-CV (test code = 788-0) 13.3 % 12-15.5 PLT (test code = 777-3) See_Comment [[employer]] The system which generated this result transmitted reference range: 166 - 358 10*3/?L. The reference range was not used to interpret this result as normal/abnormal. MPV (test code = 73984-6) 10.5 fL 9.5-12.9 NRBC/100 WBC (test code = 8891118713) See_Comment [Automated me ssage] The system which generated this result transmitted reference range: 0.0 - 10.0 /100 WBCs. The reference range was not used to interpret this result as normal/abnormal. NRBC x10^3 (test code = 2432899867) See_Comment [Automated messa ge] The system which generated this result transmitted reference range: 10*3/?L. The reference range was not used to interpret this result as normal/abnormal. GRAN MAT (NEUT) % (test code = 770-8) 67.4 % IMM GRAN % (test code = 8917039700) 0.30 % LYMPH % (test code = 736-9) 24.5 % MONO % (test code = 5905-5) 7.2 % EOS % (test code = 713-8) 0.3 % BASO % (test code = 706-2) 0.3 % GRAN MAT x10^3(ANC) (test code = 6383750425) 8.19 10*3/uL 1.88-7.09 H IMM GRAN x10^3 (test code = 5257334958) 0.04 10*3/uL 0-0.06 LYMPH x10^3 (test code = 731-0) 2.98 10*3/uL 1.32-3.29 MONO x10^3 (test code = 742-7) 0.88 10*3/uL 0.33-0.92 EOS x10^3 (test code = 711-2) 0.04 10*3/uL 0.03-0.39 BASO x10^3 (test code = 704-7) 0.04 10*3/uL 0.01-0.07 Lab Interpretation (test code = 49126-8) Abnormal [facility] WITH [id number] 00:51:27* Test Item Value Reference Range Interpretation Comme nts WBC (test code = 6690-2) See_Comment H [Automated messa ge] The system which generated this result transmitted reference range: 4.30 - 11.10 10*3/?L. The reference range was not used to interpret this result as normal/abnormal. RBC (test code = 789-8) See_Comment [Automated [employer]] The system which generated this result [...] 33.3 g/dL 31.6-35.1 RDW-SD (test code = 01129-3) 45.4 fL 39-49.9 RDW-CV (test code = 788-0) 13.3 % 12-15.5 PLT (test code = 777-3) See_Comment [Automated [employer]] The system which generated this result transmitted reference range: 166 - 358 10*3/?L. The reference range was not used to interpret this result as normal/abnormal. MPV (test code = 76554-0) 10.5 fL 9.5-12.9 NRBC/100 WBC (test code = 8247975416) See_Comment [Automated [employer] ssage] The system which generated this result transmitted reference range: 0.0 - 10.0 /100 WBCs. The reference range was not used to interpret this result as normal/abnormal. NRBC x10^3 (test code = 9077559137) See_Comment [Automated [employer]] The system which generated this result transmitted reference range: 10*3/?L. The reference range was not used to interpret this result as normal/abnormal. GRAN MAT (NEUT) % (test code = 770-8) 67.4 % IMM GRAN % (test code = 4487026782) 0.30 % LYMPH % (test code = 736-9) 24.5 % MONO % (test code = 5905-5) 7.2 % EOS % (test code = 713-8) 0.3 % BASO % (test code = 706-2) 0.3 % GRAN MAT x10^3(ANC) (test code = 7794724012) 8.19 10*3/uL 1.88-7.09 H IMM GRAN x10^3 (test code = 7317389243) 0.04 10*3/uL 0-0.06 LYMPH x10^3 (test code = 731-0) 2.98 10*3/uL 1.32-3.29 MONO x10^3 (test code = 742-7) 0.88 10*3/uL 0.33-0.92 EOS x10^3 (test code = 711-2) 0.04 10*3/uL 0.03-0.39 BASO x10^3 (test code = 704-7) 0.04 10*3/uL 0.01-0.07 Lab Interpretation (test code = 77886-6) [facility]normal [facility], THINPREP, [id number] 00:00:00 * Test Item Value Reference Range Interpretation Comme nts SOURCE: (test code = 8001) Cervical/Endocervical SLIDES: (test code = 8011) 1 LMP: (test code = 8021) 03/26/2019 SPECIMEN ADEQUACY: (test code = 75491) (NOTE) INTERPRETATION: (test code = 88977) NILM/NO EPITH. ABNORMALITY;SEE BELOW OTHER COMMENTS: (test code = 8081) (NOTE) TAKER OFF HEMP FIBER: (test code = 8101) MARI Nair(ASCP) QC TECHNOLOGIST: (test code = 8111) MARGARITA Serrano(ASCP)CT(IA C) LOCATION: (test code = 34939) (NOTE) CPT: (test code = 8140) (NOTE) CT/NG, TMA, THINPREP [ADDED]2019-05-04 00:00:00* Test Item Value Reference Range Interpretation Comme nts GONORRHEA, TMA (test code = 14870) NEGATIVE CHLAMYDIA, TMA (test code = 39476) NEGATIVE VAGINAL PATHOGENS DNA [id number] 00:00:00* Test Item Value Reference Range Interpretation Comme nts PRASANNA SPECIES (test code = 76688) NEGATIVE G. VAGINALIS (test code = 52689) NEGATIVE T. VAGINALIS (test code = 65258) POSITIVE CBC W/AUTO [id number] 00:00:00* Test Item Value Reference Range Interpretation [...] 362 K/UL HPV HIGH RISK WITH GENOTYPE, [id number] 00:00:00* Test Item Value Reference Range Interpretation Comme nts HPV HIGH RISK INTERP (test c ode = 55369) NEGATIVE HPV 16 (test code = 74646) NEGATIVE HPV 18 (test code = 61614) NEGATIVE HPV, HR, OTHER GENOTYPES (te st code = 73801) NEGATIVE LIPID [id number] 00:00:00* Test Item Value Reference Range Interpretation Comme nts CHOLESTEROL (test code = 2210) 221 MG/DL TRIGLYCERIDES (test code = 2232) 106 MG/DL HDL CHOLESTEROL (test code = 2220) 40 MG/DL CALC LDL CHOL (test code = 2237) 160 MG/DL RISK RATIO LDL/HDL (test cod e = 2238) 4.00 RATIO HEMOGLOBIN [id number] 00:00:00* Test Item Value Reference Range Interpretation Comme nts HEMOGLOBIN A1c (test code = 91031) 5.9 % COMPREHENSIVE METABOLIC [id number] 00:00:00* Test Item Value Reference Range Interpretation Comme nts GLUCOSE (test code = 2217) 100 MG/DL BUN (test code = 2208) 10 MG/DL CREATININE (test code = 2214) 0.56 MG/DL eGFR AMER. (test cod e = 87084) 137 ML/MIN/1.73 eGFR NON- AMER. (test code = 39469) 118 ML/MIN/1.73 CALC BUN/CREAT (test code = [...] ALT (test code = 2219) 26 U/L [id number] 00:00:00* Test Item Value Reference Range Interpretation [...] D4.FINDINGS: Following the administration of 95 mL Ohaazgcct857 intravenouscontrast, multislice axial images are obtained through [...] 05:31:13CT abdomen and pelvis with contrastLocation Code: S28HGOQYQCD HISTORY: 56345571: Lower abdominal teetee nCOMPARISON: NoneTechnique: Helical CT [...] % 0.0-10.0 XR CHEST 2 VIEW *OW*2018-10-12 07:25:70U22UYSV: XR CHEST 2 VIEW *OW*HISTORY: 23003588: CoughCOMPARISON: 08/08/18INDINGS: The lungs are clear. No [...] = GMID%) 10.3 % 0.0-10.0 H THROAT [id number] 07:45:00* Test Item Value Reference Range Interpretation [...] 14:39:21PA and lateral chest, 2 viewsLocation code: L5DLOQXALW HISTORY: Chest painCOMPARISON: NoneCOMMENTS:The lungs are clear and well inflated. The costophrenic angles aresharp. The cardiomediastinal silhouette is unremarkable. The bones are intact.IMPRESSION: No acute abnormality Notes Date/Time Note Provider Source 2024-03-29 15:45:00 The patient was sent home with a stool collection kit and will bring it back after collection. No labs were collected during this visit. [facility] 2024-03-29 10:02:13 Mammogram dept is reporting they need a referral for dx mammo bilateral and US bilateral Pt is reporting lump in breast and everyday pain T Lynda Braden [facility] 2024-03-22 13:40:00 Addended by: JIMMY CARROLL MD on: 03/28/2024 03:29 PM Modules accepted: Level of Service [facility] 2023-11-25 09:58:04 Forms reviewed & signed by Zev Villa DO, faxed to [employer] ([phone]), and scanned to patient's chart. Anne Shane MA 11/25/2023 9:58 AM Anne Shane MA [facility] 2023-11-24 15:14:31 Physical Therapy evaluation notes and Plan of Care received from [employer] (11/23/2023). Documents placed in Zev Villa DO's folder for review and signature. Once completed, should be faxed back to [phone] and scanned to patient's chart. Anne Shane MA 11/24/2023 3:15 PM Anne Shane MA [facility] 2023-11-13 14:57:22 Sent pt [employer] message advising her to f/u with [facility] pharmacy. They at times have pt assistance available. [facility] 2023-11-13 12:58:03 Copied from [facility] #[id number]. 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 She is not able to pay for prescription and is needing financial assistance. Patient states that last time prescription was mailed to her. Please advise. Jackelin Topete [facility] 2023-11-10 12:45:59 Prescription & Letter of Medical Necessity has been completed & signed by Zev Villa DO as well as scanned to patient's chart. Clinical notes, patient demographics, & LMN have all been faxed to [employer] . Anne Shane MA 11/10/2023 12:46 PM Anne Shane MA [facility] 2023-11-03 16:45:00 Images from the original note were not included. Venipuncture collection performed by clean technique on the right anticubitus. Total of 1 attempts were made. Slight pressure and a bandage/dressing were applied to the site(s). The patient experienced no complications. The following specimens were processed according to instructions and sent to [facility] laboratories per lab order on 11/03/2023 : LT BLUE SST 5 RED LAV PPT DK GREEN (LiHep) LT GREEN (LiHep) GAITAN DK BLUE (K2) DK BLUE (S) ACD Blood Culture NIPT Urine Urine Culture [facility] 2023-10-30 16:08:09 Called patient scheduled her an appt with Shea SIERRA at the PCP clinic on 11/02 Pam Fuentes [facility] 2023-10-30 09:24:34 Please call patient to schedule appointment to discuss lab results. Bonnie Haji MA 10/30/2023 9:24 AM Bonnie Haji MA [facility] 2023-10-29 17:16:36 Recommend patient schedule a follow up appointment to discuss lab results. RIGO-PHYSICIAN VIDEO PRODUCTION SPECIALIST MIDLEVEL PROVIDER [facility] 2023-10-26 14:04:03 Please advise on lab results. Bonnie Haji MA 10/26/2023 2:04 PM [facility] 2023-10-26 09:40:39 Serenity Calderon is a 43 year old female Pt is calling requesting to speak with a nurse regarding lab results. Please advise. [phone] (home) Ana Pritchett [facility] 2023-10-01 15:00:00 Images from the original note were not included. Venipuncture collection performed by clean technique on the left anticubitus. Total of 1 attempts were made. Slight pressure and a bandage/dressing were applied to the site(s). The patient experienced no complications. The following specimens were processed according to instructions and sent to [facility] laboratories per lab order on 10/01/2023: LT BLUE SST 3 RED LAV 2 PPT DK GREEN (LiHep) DK GREEN (SodH) GAITAN DK BLUE (K2) DK BLUE (S) ACD Blood Culture NIPT/NTD [facility]"
[2024-06-15] MEDS ORDERED: GABAPENTIN 300 MG CAP ONE (07:20)
[2024-06-15] MEDS ORDERED: KETOROLAC 30 MG/ML INJ ONE (07:20)
[2024-06-15] MEDS ORDERED: MORPHINE 4 MG/ML SYR ONE (08:32)
--- NOTE | 2024-06-15 08:50 | EDPHYS ---
Physician Documentation [facility] Name: Serenity Collins Age: 43 yrs Sex: Female : 1980 Arrival Date: 06/15/2024 Time: 07:08 Bed 15 Private MD: ED Physician Ramu Choi HPI: 06/15 07:46 This 43 yrs old Female presents to ER via EMS with complaints of arm pain. rn 07:46 The patient or guardian complains of pain. The complaints affect the right bicep, right rn antecubital area and dorsal aspect of right forearm. 07:47 Onset: The symptoms/episode began/occurred 4 day(s) ago. Modifying factors: The rn symptoms are alleviated by nothing. the symptoms are aggravated by movement. Severity of symptoms: At their worst the symptoms were moderate, in the emergency department the symptoms are unchanged. The patient has experienced similar episodes in the past. Patient reports suffered arm laceration years ago, has resulting nerve damage and tendon injury since then. Recently went back to work and has been washing dishes, increased pain to the right arm. Improves with heat and massage but does not resolve so came in for evaluation. No new injury or fall. No swelling or redness. No fever or chills. No new weakness or numbness or tingling.. Historical: - Allergies: 07:17 Seroquel; rs5 07:17 JOE; rs5 07:17 SHELLFISH; rs5 07:17 Tylenol-Codeine #3; rs5 - PMHx: 07:17 Anxiety; Bipolar disorder; depressive disorder; ocd; PTSD; Rheumatoid Arthritis; rs5 - PSHx: 07:17 Total abdominal hysterectomy; rs5 - Immunization history:: Adult Immunizations up to date. - Infectious Disease History:: Denies. - Social history:: Smoking status: Patient denies any tobacco usage or history of. - Family history:: not pertinent. - Hospitalizations: : No recent hospitalization is reported. ROS: 07:47 Constitutional: Negative for fever, chills, and weight loss, Neck: Negative for injury, rn pain, and swelling, Cardiovascular: Negative for chest pain, palpitations, and edema, Respiratory: Negative for shortness of breath, cough, wheezing, and pleuritic chest pain, Abdomen/GI: Negative for abdominal pain, nausea, vomiting, diarrhea, and constipation, MS/Extremity: Positive for pain to right upper extremity Skin: Negative for injury, rash, and discoloration, Neuro: Negative for headache, weakness, numbness, tingling, and seizure, Exam: 07:47 Constitutional: This is a well developed, well nourished patient who is awake, alert, rn and in no acute distress. Cardiovascular: Regular rate and rhythm. No pulse deficits. Respiratory: No increased work of breathing, no retractions or nasal flaring. Skin: Warm, dry MS/ Extremity: Pulses equal, no cyanosis. Neurovascular intact. Scar at right volar wrist from previous surgery. No gross swelling or erythema. No warmth. No signs of new injury or ecchymosis. Painful range of motion from wrist to forearm and elbow. No bony tenderness or abnormality. Vital Signs: 07:16 BP 108 / 72; Pulse 88; Resp 17; Temp 97.9(O); Pulse Ox 99% on R/A; rs5 08:40 BP 115 / 70; Pulse 80; Resp 17; Pulse Ox 99% on R/A; rs5 MDM: 07:15 Medical Screening Exam initiated rn 08:49 Differential diagnosis: Neuropathy, tendinitis. Data reviewed: vital signs, nurses rn notes, and as a result, I will discharge patient. Counseling: I had a detailed discussion with the patient and/or guardian regarding the historical points, exam findings, and any diagnostic results supporting the discharge/admit diagnosis, the need for outpatient follow up, to return to the emergency department if symptoms worsen or persist or if there are any questions or concerns that arise at home. Special discussion: I discussed with the patient/guardian in detail that at this point there is no indication for admission to the hospital. It is understood, however, that if the symptoms persist or worsen the patient needs to return immediately for re-evaluation. Administered Medications: 07:39 Drug: Gabapentin PO 300 mg PO once Route: PO; rs5 08:20 Follow up: Response: No adverse reaction; Pain is decreased rs5 07:39 Drug: Ketorolac IM 30 mg IM once Route: IM; Site: left deltoid; rs5 08:25 Follow up: Response: No adverse reaction rs5 08:37 Drug: morphine IM 4 mg IM once Route: IM; Site: right deltoid; rs5 08:55 Follow up: Response: No adverse reaction; Pain is decreased rs5 Disposition Summary: 06/15/24 08:50 Discharge Ordered Notes: Location: Home rn Problem: chronic rn Symptoms: have improved rn Condition: Stable rn Diagnosis - Neuropathy rn - Pain in right arm rn Followup: rn - With: Private Physician - When: As needed - Reason: Recheck today's complaints, Re-evaluation by your physician Discharge Instructions: - Discharge Summary Sheet rn - Neuropathic Pain rn - Peripheral Neuropathy rn Forms: - Medication Reconciliation Form rn - Antibiotic information technology internship - Prescription Opioid Use rn - Patient Portal Instructions rn - Leadership Thank You Letter rn - Work release form rs5 Prescriptions: - gabapentin 100 mg Oral capsule - take 1 capsule ORAL route every 12 hours As needed; 20 capsule; Refills: 0, rn Product Selection Permitted Signatures: Ramu Choi MD MD rn Rodrigo Gonzalez RN RN rs5
--- NOTE | 2024-06-15 08:50 | ER ---
Nurse's Notes [facility] Name: Serenity Collins Age: 43 yrs Sex: Female : 1980 Arrival Date: 06/15/2024 Time: 07:08 Bed 15 Private MD: Diagnosis: Neuropathy;Pain in right arm Presentation: 06/15 07:16 Chief complaint: EMS states: Right arm pain and numbness that radiates to neck, started rs5 Thursday. Pt states "I cut my arm really bad several years ago with glass and I wonder if i'm having nerve damadge". Coronavirus screen: At this time, the client does not indicate any symptoms associated with coronavirus-19. Ebola Screen: No symptoms or risks identified at this time. Initial Sepsis Screen: Does the patient meet any 2 criteria? No. Patient's initial sepsis screen is negative. Does the patient have a suspected source of infection? No. Patient's initial sepsis screen is negative. Risk Assessment: Do you want to hurt yourself or someone else? Patient reports no desire to harm self or others. Onset of symptoms was June 15, 2024. 07:16 Method Of Arrival: EMS: [facility] rs5 07:16 Acuity: MARY 3 rs5 Triage Assessment: 07:20 General: Appears distressed, uncomfortable, Behavior is cooperative. rs5 Historical: - Allergies: 07:17 Seroquel; rs5 07:17 JOE; rs5 07:17 SHELLFISH; rs5 07:17 Tylenol-Codeine #3; rs5 - PMHx: 07:17 Anxiety; Bipolar disorder; depressive disorder; ocd; PTSD; Rheumatoid Arthritis; rs5 - PSHx: 07:17 Total abdominal hysterectomy; rs5 - Immunization history:: Adult Immunizations up to date. - Infectious Disease History:: Denies. - Social history:: Smoking status: Patient denies any tobacco usage or history of. - Family history:: not pertinent. - Hospitalizations: : No recent hospitalization is reported. Screenin:20 [facility] [place] ED Fall Risk Assessment (Adult) History of falling in the last 3 months, rs5 including since admission No falls in past 3 months (0 pts) Confusion or Disorientation No (0 pts) Intoxicated or Sedated No (0 pts) Impaired Gait No (0 pts) Mobility Assist Device Used No (0 pt) Altered Elimination No (0 pt) Score/Fall Risk Level 0 - 2 = Low Risk Oriented to surroundings, Maintained a safe environment. 07:20 Abuse screen: Denies threats or abuse. Nutritional screening: No deficits noted. rs5 Tuberculosis screening: No symptoms or risk factors identified. Assessment: 07:20 General: Appears distressed, uncomfortable, Behavior is cooperative. Pain: Complains of rs5 pain in right arm Pain radiates to neck Pain currently is 9 out of 10 on a pain scale. Quality of pain is described as aching, Is continuous. Neuro: Level of Consciousness is awake, alert, obeys commands, Oriented to person, place, time, situation. Cardiovascular: Patient's skin is warm and dry. Respiratory: Airway is patent Respiratory effort is even, unlabored, Respiratory pattern is regular, symmetrical. GI: Abdomen is round non-distended. : No signs and/or symptoms were reported regarding the genitourinary system. EENT: No signs and/or symptoms were reported regarding the EENT system. Derm: Skin is intact, Skin is pink, warm \\T\\ dry. Musculoskeletal: Range of motion: limited in right arm. 08:25 Reassessment: Patient and/or family updated on plan of care and expected duration. Pain rs5 level reassessed. Patient is alert, oriented x 3, equal unlabored respirations, skin warm/dry/pink. 08:40 Reassessment: Patient and/or family updated on plan of care and expected duration. Pain rs5 level reassessed. Patient is alert, oriented x 3, equal unlabored respirations, skin warm/dry/pink. Vital Signs: 07:16 BP 108 / 72; Pulse 88; Resp 17; Temp 97.9(O); Pulse Ox 99% on R/A; rs5 08:40 BP 115 / 70; Pulse 80; Resp 17; Pulse Ox 99% on R/A; rs5 ED Course: 07:15 Patient arrived in ED. rs5 07:15 Ramu Choi MD is Attending Physician. rn 07:17 Triage completed. rs5 07:18 Rodrigo Gonzalez RN is Primary Nurse. rs5 07:20 Patient has correct armband on for positive identification. Placed in gown. Bed in low rs5 position. Call light in reach. Side rails up X2. 07:20 Arm band placed on right wrist. rs5 07:20 No provider procedures requiring assistance completed. rs5 08:55 Patient did not have IV access during this emergency room visit. rs5 Administered Medications: 07:39 Drug: Gabapentin PO 300 mg PO once Route: PO; rs5 08:20 Follow up: Response: No adverse reaction; Pain is decreased rs5 07:39 Drug: Ketorolac IM 30 mg IM once Route: IM; Site: left deltoid; rs5 08:25 Follow up: Response: No adverse reaction rs5 08:37 Drug: morphine IM 4 mg IM once Route: IM; Site: right deltoid; rs5 08:55 Follow up: Response: No adverse reaction; Pain is decreased rs5 Medication: 08:00 VIS not applicable for this client. rs5 Outcome: 08:50 Discharge ordered by . rn 08:55 Discharged to home ambulatory, rs5 08:55 Condition: stable rs5 08:55 Discharge instructions given to patient, family, Instructed on discharge instructions, follow up and referral plans. Demonstrated understanding of instructions, follow-up care, 08:59 Patient left the ED. rs5 Signatures: Ramu Choi MD MD rn Sotelo, Ricky, RN RN rs5 Corrections: (The following items were deleted from the chart) 09:18 08:55 IV discontinued, intact, bleeding controlled, No redness/swelling at site. rs5 Pressure dressing applied, rs5
[2024-06-15 09:14] VITALS: BP 108/72; TEMP 97.9; O2SAT 99
== END 2024-06-15 08:59 | disposition home or self-care (01) ==
LOC: ER 07:08
DX: G62.9 Polyneuropathy, unspecified (principal)
CPT/HCPCS: 96372; 99284

== ENCOUNTER 2024-08-23 09:02 | Emergency (ER) | payer MEDICARE ==
--- OUTSIDE RECORDS SUMMARY | 2024-08-23 09:08 | XMS REPORT | Continuity of Care Document ---
Author Name Unknown Address [address] [place] [address] [facility] thconnect Address [address] [place] [address] Care Team Providers Care Bulk Receiver Name Role Phone [facility], [facility] [place] Primary Care Physician ANTONY JOSHUA Attending Clinician Unavail able JEANETTE PACK Attending Clinician Unavailab Katey ALMANZAR, Yumiko Dawn Attending Clinician UnavailDaphnie Lilly LMSW Attending Clinician + AVRIL LOPEZ Attending Clinician Unavailable ELIU BARNES Attending Clinician Un available Doctor Unassigned, [place] Attending Clinician U JIMMY Diop Attending Clinician Unavailable HUGH SYLVESTER Attending Clinician Unavailable HUGH SYLVESTER Attending Clinician Unavailable ZEV VILLA Attending Clinician Unavailable Eliu Barnes MD Attending Clinician Pcp-Lab Attending Clinician Unavailable Jesus Garay MD Attending Clinician [phone] Daphnie Dawson LCSW Attending Clinician U LEN Duncan Attending Clinician Unavailable Len Thurston MD Attending Clinician NILA JOVEL Attending Clinician Unavailable SHEA SEBASTIAN Attending Clinician Unavailable SHEA SEBASTIAN Attending Clinician Unavailable Valencialiane Zev VILLAFUERTE Attending Clinician [phone] Rasta CAREER PORTALS TEACHERAnne Attending Clinician [phone] Pcp-Lab Attending Clinician Unavailable Song Chang MD Attending Clinician [phone] Vtc-Lab Attending Clinician Unavailable SONG CHANG Attending Clinician Unavailable Doctor Unassigned, [place] Attending Clinician U SHANDRA Morin Attending Clinician Unavailable MARINO WILLS Attending Clinician Unavailable Pgy3 Attending Clinician Unavailable Marino Wills MD Attending Clinician + [phone] MARCIANO WAYNE Attending Clinician Unavailab Marciano Fairchild MD Attending Clinician [phone] Ryan CAREER PORTALS TEACHER, Felisa Attending Clinician [phone] FELISA DAVIS Attending Clinician Unavailable Jimmy Carroll MD Attending Clinician + [phone] Sharan Benjamin MD Attending Clinician [phone] Katy Hadley RN Attending Clinician Unavailable Brody MATHEWS, Simeon W Attending Clinician Unavail able SURESH BONILLA Attending Clinician Unavailabl chang Bonilla DDSSuresh Attending Clinician [phone] Cristy Burden Attending Clinician [phone] Peggy Benitez LVN Attending Clinician + [phone] Chau Carver DDS Attending Clinician + [phone] CHAU CARVER Attending Clinician Unavailab zen Joshua MD, Antony Leach Attending Clinician [phone] Arianna Locke MD Attending Clinician [phone] Otis Holloway MD Attending Clinician [phone] OTIS HOLLOWAY Attending Clinician Unavailable Only, Adc Test Attending Clinician Unavailable Melanie Lou RN Attending Clinician [phone] BENTLEY BEARDEN Attending Clinician Unavailable Eliz Cantu MD Attending Clinician Shawn Agudelo MD Attending Clinician +[phone] SHAWN AGUDELO Attending Clinician Unavaillui Gonzalez MD, Theodora Attending Clinician [phone] SENA JONES Attending Clinician Unavailable Karen GORE, Sena Attending Clinician [phone] Alejandro Benites DO Attending Clinician [phone] Unknown, Attending Attending Clinician Unavailab zen LOPEZ, ATTENDING Attending Clinician Unavailab SON Pulido Attending Clinician Tiffany Shane COMPLEX CASE MANAGER, Montse Mccormack Attending Clinician Unaary De León_Cleopatra Attending Clinician Unavailable Francis TAY, Jody Attending Clinician [phone] Bentley Bearden DDS Attending Clinician [phone] EMILY RIVERA Attending Clinician Unavailable Miguel TAY, Emily Mccormack Attending Clinician + [phone] Only, [facility] Test Attending Clinician Unavailable SABINO DUMONT Attending Clinician Unavaillui Dumont MD, Sabino Williamson Attending Clinician + [phone] FRANKLYN CASTILLO Attending Clinician Unavailable Pgy2 Attending Clinician Unavailable Franklyn Castillo MD Attending Clinician [phone] Jack Ott MD Attending Clinician [phone] Alma Rosa Sethi MD Attending Clinician + Catalina Driscoll Attending Clinician [phone] Pcp, Patient Does Not Have A Attending Clinician Curt Koehler Attending Clinician +[phone] Curt KEMP Attending Clinician Unavailable JEANNINE, DR WHATLEY Attending Clinician Unavailable CINDI, DR KEYUR Elias Attending Clinician Unavaila queenie HUNT, DR MARKELL Madison Attending Clinician Gisele hernandez BA, DR CARPENTER Attending Clinician Unavailable MING, DR MELANIE Downing Attending Clinician Unavaila queenie WILL, DR LEACH Attending Clinician Unavailable TRISH, DR DARÍO Newton Attending Clinician UnaANTONY Huerta Admitting Clinician Unavail MARCIANO Ibarra Admitting Clinician Unavailab FELISA Ramos Admitting Clinician Unavailable CHAD, SURESH Hemphill Admitting Clinician Unavaillui Bonilla DDS, Suresh Hemphill Admitting Clinician [phone] Nohemy TAY, Antony Leach Admitting Clinician [phone] SENA JONES Admitting Clinician Unavailable ToshiaJuditetelvina Admitting Clinician Unavailable EMILY RIVERA Admitting Clinician Unavailable Miguel TAY, Emily Mccormack Admitting Clinician [phone] SABINO DUMONT Admitting Clinician Unavaillui WILLS, MRAINO Davila Admitting Clinician Unavailable Johann TAY, Marino Davila Admitting Clinician +[phone] JEANNINE, DR WHATLEY Admitting Clinician Unavailable CINDI, DR KEYUR Elias Admitting Clinician Unavailclay HUNT, DR MARKELL Madison Admitting Clinician Unabraxton hernandez BA, DR CARPENTER Admitting Clinician Unavailable MING, DR MELANIE Downing Admitting Clinician Unavailclay WILL, DR LEACH Admitting Clinician Unavailable TRISH, DR DARÍO Newton Admitting Clinician Unajeremiah dumas Payers Payer Name Policy Type Policy Number Effective Date Expirati on Date Source [facility] CASE[facility]OOK [id number] 2021 00:00:00 2022 00:00:00 [facility] [id number] 2022 00:00:00 [facility] [id number] 2022 00:00:00 [facility] [id number] 2021 00:00:00 2021 00:00:00 Problems Condition Name Condition Details Condition Category Status Onset Date Resolution Date Last Treatment Date Treating Clinician Comments Source 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 Added automatic ally from request for surgery [id number] [facility] Chronic pelvic pain in female Chronic pelvic pain in female Disease Active 4-14 00:00: 00 Overview: Formattin g of this note might be different from the original. Added automatic ally from request for surgery [id number] [facility] Hydrosalpi nx Hydrosalpi nx Disease Active 3-29 00:00: 00 [facility] Generalize d anxiety disorder Generalize d anxiety disorder Disease Active 3-29 00:00: 00 [facility] Bipolar disorder in full remission, most recent episode unspecifie d type Bipolar disorder in full remission, most recent episode unspecifie d type Disease Active 3-29 00:00: 00 [facility] Abdominal pain Abdominal pain Disease Active 2-23 00:00: 00 [facility] Allergies, Adverse Reactions, Alerts Allergy Name Allergy Type Status Severity Reaction(s) Onset Date Inactive Date Treating Clinician Comments Source HYDROCOD ONE-ACET AMINOPHE N DRUG Active ITCHING 2021-08 0-04 00:00: 00 [facility] Hydrocod one-Acet aminophe n Propensi ty to adverse reaction s Active Itching 2021-08 0-04 00:00: 00 [facility] Quetiapi ne Drug Intolera nce Active Other - See comments 6 00:00: 00 Made pt. Get really mad [facility] Shellfis h Derived Propensi ty to adverse reaction s Active Nausea and/or Vomiting 6-07 00:00: 00 [facility] QUETIAPI NE DRUG INGREDI Active High Other-Cmnt 6-07 00:00: 00 [facility] SHELLFIS H DERIVED DRUG INGREDI Active High ITCHING 6-07 00:00: 00 [facility] Joe Propensi ty to adverse reaction s Active Anaphylaxis 4-08 00:00: 00 [facility] JOE DRUG INGREDI Active Anaphylaxis 4-08 00:00: 00 [facility] Codeine Propensi ty to adverse reaction s Active Itching 10-09 00:00: 00 To face [facility] CODEINE DRUG INGREDI Active ITCHING 10-09 00:00: 00 [facility] Social History Social Habit Start Date Stop Date Quantity Comments Source [facility] Alcoholic beverage intake 2024-08-22 00:00:00 2024-08-22 00:00:00 Ex-drinker (finding) [facility] History of Social function 2024-03-22 00:00:00 2024-03-22 00:00:00 [facility] Tobacco use and exposure 2024-03-22 00:00:00 2024-03-22 00:00:00 Smokeless tobacco non-user [facility] Alcohol intake 2023-11-10 00:00:00 2023-11-10 00:00:00 Ex-drinker (finding) [facility] Exposure to SARS-CoV-2 (event) 2022-10-28 00:00:00 2022-11-07 12:55:00 Not sure [facility] Alcohol Comment 2022-10-15 00:00:00 2022-10-15 00:00:00 stopped 7 weeks ago [facility] History of tobacco use 2022-05-19 00:00:00 Cigarette Smoker [facility] Tobacco Comment 2022-04-07 00:00:00 2022-04-07 00:00:00 Occassionally smokes 1 each [facility] Sex assigned at 1980 00:00:00 1980 00:00:00 [facility] Smoking Status Start Date Stop Date Source Ex-smoker 2024-03-22 00:00:00 2024-03-22 00:00:00 [facility] Occasional tobacco smoker 2022-06-03 00:00:00 [facility] Smokes tobacco daily 2021-11-19 00:00:00 [facility] Medications Ordered Medication Name Filled Medication Name Start Date Stop Date Current Medication? Ordering Clinician Indication Dosage Frequency Signature (SIG) Comments Components Source diclofenac dodium (VOLTAREN ARTHRITIS PAIN) 1 % gel 8-13 00:00: 00 Yes [id number] 2g Apply 2 g to area(s) 4 (four) times daily as needed for Pain. [facility] Capsaicin 0.1 % cream 8-13 00:00: 00 06-28 05:59 :00 No [id number] Apply to area(s) 4 (four) times daily as needed for Pain (scale 4-6) for up to 90 days. [facility] cyclobenzap rine 10 mg tablet 11-09 00:00: 00 03-29 00:00 :00 No [id number] 10mg Take 1 tablet by mouth in the morning and 1 tablet at noon and 1 tablet in the evening. [facility] amitriptyli ne 10 mg tablet 10-01 00:00: 00 01-29 04:59 :00 No [id number] 10mg Take 1 tablet by mouth at bedtime for 120 days. [facility] ubrogepant 100 mg Tab 2022-08 00:00: 00 Yes [id number] 100mg Take 1 tablet by mouth as needed for Other (Headache) for up to 64 doses. If symptoms persist or return, may repeat dose after 2 hours. Maximum: 200 mg per 24 hours [facility] topiramate 25 mg tablet 2022-08 0 00:00: 00 07-13 05:59 :00 No [id number] Take 1 tablet by mouth 2 (two) times daily for 7 days, THEN 2 tablets 2 (two) times daily for 21 days. [facility] sumatriptan 100 mg tablet 2022-08 030 00:00: 00 07-13 00:00 :00 No [id number] 100mg Take 1 tablet by mouth as needed for Migraine (Max of 2 tablets/da y.). [facility] ondansetron (ZOFRAN (PF)) injection 4 mg 11-04 17:45: 00 11-04 17:58 :00 No 4mg 4 mg, Slow IV Push, ONCE, 1 dose, On Thu11/04/22 at 1245, ANTOINETTE [facility] morpHINE (4 mg/mL) injection 4 mg 11-04 17:45: 00 11-04 17:58 :00 No 4mg 4 mg, Slow IV Push, ONCE, 1 dose, On Thu11/04/22 at 1245, STAT [facility] ketorolac (TORADOL) injection 30 mg 11-04 16:15: 00 11-04 15:45 :00 No 30mg 30 mg, Slow IV Push, ONCE, 1 dose, On Thu11/04/22 at 1115, ANTOINETTE [facility] OLANZapine 5 mg tablet 08-18 10:02: 06 08-18 00:00 :00 No 2.5mg Take 2.5 mg by mouth daily. [facility] TAKE 1 TABLET BY MOUTH EVERY 6 HOURS NEEDED 2021-08 00:00: 00 No OLANZapine 5 mg tablet 2021-08 13:28: 48 Yes 2.5mg Take 2.5 mg by mouth daily. [facility] ibuprofen (ADVIL CHILDREN'S) 100 mg/5 mL oral suspension 600 mg 2021-08 0 01:30: 00 Yes 600mg 600 mg, Oral, Q6H, First dose (after last modificati on) on Thu05/22/22 at 2030, Until Discontinu ed, Routine [facility] acetaminoph en (TYLENOL) 160 mg/5 mL oral liquid 650 mg 2021-08 0 01:15: 00 Yes 650mg 650 mg, Oral, Q6H, First dose (after last modificati on) on Thu05/22/22 at 2015, Until Discontinu ed, Routine [facility] ibuprofen 600 mg tablet 2021-08 0-07 00:00: 00 06-15 00:00 :00 No [id number] 101 600mg Take 1 tablet by mouth every 6 (six) hours as needed for Pain (scale 4-6). [facility] acetaminoph en (TYLENOL) 325 mg tablet 2021-08 0-07 00:00: 00 05-24 04:59 :00 No [id number] 101 650mg Take 2 tablets by mouth every 6 (six) hours as needed for Alternate with ibuprofen for pain scale 4-6. [facility] chlorhexidi ne 0.12 % mouthwash 2021-08 00:00: 00 10-15 00:00 :00 No [id number] 101 15mL Swish and spit out 15 mL in the morning and 15 mL in the evening. [facility] amoxicillin -clavulanat e (AUGMENTIN) 875-125 mg per tablet 2021-08 00:00: 00 05-31 04:59 :00 No [id number] 101 1{tbl} Take 1 tablet by mouth in the morning and 1 tablet in the evening. Do all this for 7 days. [facility] metroNIDAZO LE (FLAGYL) 500 mg tablet 2021-08 00:00: 00 05-31 04:59 :00 No [id number] 101 500mg Take 1 tablet by mouth every 12 (twelve) hours for 7 days. [facility] morpHINE (2 mg/mL) injection 2 mg 2021-08 18:14: 35 Yes 2mg 2 mg, Slow IV Push, Q4HPRN, Starting on Thu05/21/22 at 1314, Until Discontinu ed, Routine, Pain (scale 7-10) [facility] lactated ringers IV infusion 1,000 mL 2021-08 16:30: 00 Yes 1000mL at 75 mL/hr, 1,000 mL, IV Infusion, CONTINUOUS , Starting on Thu05/21/22 at 1130, Until Discontinu ed, Routine, PACU [facility] lidocaine 2% viscous (LIDOCAINE VISCOUS) 2 % solution 2021-08 005 15:56: 00 05-21 16:27 :27 No PRN, Starting on Thu05/21/22 at 1056, Until Thu05/21/22 at 1127, Routine, Intra-op [facility] chlorhexidi ne (PERIDEX) 0.12 % mouthwash 15 mL 2021-08 005 13:00: 00 Yes 15mL 15 mL, Oral (Swish And Spit Out), BID, First dose on Thu05/21/22 at 0800, Until Discontinu ed, Routine [facility] ampicillin- sulbactam (UNASYN) 3 g in [...]
D uration of Therapy: Other (see Comments) [facility] lactated ringers IV infusion 1,000 mL 2021-08 0-05 03:45: 00 05-21 20:29 :02 No 1000mL at 125 mL/hr, 1,000 mL, IV Infusion, CONTINUOUS , Starting on Thu05/20/22 at 2245, Until Thu05/21/22 at 1529, Routine [facility] ketorolac (TORADOL) injection 15 mg 2021-08 0-05 03:29: 07 Yes 15mg 15 mg, Slow IV Push, Q6HPRN, 4 doses, Starting on Thu05/20/22 at 2229, Until Discontinu ed, Routine, Pain (scale 4-6) [facility] ibuprofen (ADVIL CHILDREN'S) 100 mg/5 mL oral suspension 600 mg 2021-08 0-05 03:28: 25 Yes 600mg 600 mg, Oral, Q6HPRN, Starting on Thu05/20/22 at 2228, Until Discontinu ed, Routine, Pain (scale 1-3) [facility] ondansetron (ZOFRAN (PF)) injection 4 mg 2021-08 0-05 03:28: 21 Yes 4mg 4 mg, Slow IV Push, Q4HPRN, Starting on Thu05/20/22 at 2228, Until Discontinu ed, Routine, Nausea and Vomiting (N/V) [facility] ampicillin- sulbactam (UNASYN) 3 g in NaCl 0.9% (NS) 100 mL MINI-BAG 2021-08 02:00: 00 05-21 03:32 :00 No 3g 3 g, IV Piggyback, ONCE, 1 dose, On Thu05/20/22 at 2100, Administer over 30 Minutes, 100 mL
Reas on for Anti-Infec tive: Documented Infection< br>Documen saw Infection Site: Other
O ther site: dental
Duration of Therapy: 7 days [facility] iopamidol (ISOVUE 370-500 mL) injection 70 mL 2021-08 02:00: 00 05-21 02:00 :00 No [id number] 101 70mL 70 mL, Intravenou s, ONCE, 1 dose, On Thu05/20/22 at 2100, Routine [facility] ondansetron (ZOFRAN (PF)) injection 4 mg 2021-08 00:15: 00 05-21 01:16 :00 No 4mg 4 mg, Slow IV Push, ONCE, 1 dose, On Thu05/20/22 at 1915, ANTOINETTE [facility] ketorolac (TORADOL) injection 30 mg 2021-08 00:00: 00 05-21 01:16 :00 No 30mg 30 mg, Slow IV Push, ONCE, 1 dose, On Thu05/20/22 at 1900, Routine [facility] OLANZapine 5 mg tablet 2021-08 23:41: 15 Yes 2.5mg Take 2.5 mg by mouth daily. [facility] amoxicillin -clavulanat e 875-125 mg per tablet 2021-08 00:00: 00 Yes [id number] 101 1{tbl} Take 1 tablet by mouth every 12 (twelve) hours. [facility] ibuprofen 800 mg tablet 2021-08 0 00:00: 00 Yes [id number] 101 800mg Take 1 tablet by mouth every 6 (six) hours as needed for Pain (scale 4-6). [facility] OLANZapine 5 mg tablet 01-26 04:20: 01 Yes 2.5mg Take 2.5 mg by mouth daily. [facility] acetaminoph en 325 mg tablet 01-24 00:00: 00 05-23 00:00 :00 No [id number] 650mg Take 2 tablets by mouth every 6 (six) hours as needed for Pain (scale 1-3). [facility] ibuprofen 600 mg tablet 01-24 00:00: 00 05-23 00:00 :00 No [id number] 600mg Take 1 tablet by mouth every 6 (six) hours as needed for Pain (scale 4-6). [facility] cyclobenzap rine 5 mg tablet 2020-08 00:00: [...] Systolic blood pressure 2024-03-29 19:13:00 125 mm[Hg] [facility] Diastolic blood pressure 2024-03-29 19:13:00 78 mm[Hg] [facility] Heart rate 2024-03-29 19:13:00 91 /min [facility] Body temperature 2024-03-29 19:13:00 36.39 Xin [facility] Respiratory rate 2024-03-29 19:13:00 16 /min [facility] Body height 2024-03-29 19:13:00 157.5 cm [facility] Body weight 2024-03-29 19:13:00 66.543 kg [facility] BMI 2024-03-29 19:13:00 26.83 kg/m2 [facility] Oxygen saturation in Arterial blood by Pulse oximetry 2024-03-29 19:13:00 100 /min [facility] Systolic blood pressure 2024-03-22 18:32:00 135 mm[Hg] [facility] Diastolic blood pressure 2024-03-22 18:32:00 91 mm[Hg] [facility] Heart rate 2024-03-22 18:29:00 82 /min [facility] Body temperature 2024-03-22 18:29:00 36.72 Xin [facility] Respiratory rate 2024-03-22 18:29:00 19 /min [facility] Body height 2024-03-22 18:29:00 157.5 cm [facility] Body weight 2024-03-22 18:29:00 65.726 kg [facility] BMI 2024-03-22 18:29:00 26.50 kg/m2 [facility] Oxygen saturation in Arterial blood by Pulse oximetry 2024-03-22 18:29:00 98 /min [facility] Systolic blood pressure 2023-11-10 14:30:00 124 mm[Hg] [facility] Diastolic blood pressure 2023-11-10 14:30:00 80 mm[Hg] [facility] Heart rate 2023-11-10 14:30:00 99 /min [facility] Respiratory rate 2023-11-10 14:30:00 12 /min [facility] Body height 2023-11-10 14:30:00 157.5 cm [facility] Body weight 2023-11-10 14:30:00 63.05 kg [facility] BMI 2023-11-10 14:30:00 25.42 kg/m2 [facility] Oxygen saturation in Arterial blood by Pulse oximetry 2023-11-10 14:30:00 96 /min [facility] Systolic blood pressure 2023-11-03 20:42:00 131 mm[Hg] [facility] Diastolic blood pressure 2023-11-03 20:42:00 87 mm[Hg] [facility] Heart rate 2023-11-03 20:42:00 89 /min [facility] Body temperature 2023-11-03 20:42:00 36.11 Xin [facility] Body height 2023-11-03 20:42:00 157.5 cm [facility] Body weight 2023-11-03 20:42:00 63.05 kg [facility] BMI 2023-11-03 20:42:00 25.42 kg/m2 [facility] Oxygen saturation in Arterial blood by Pulse oximetry 2023-11-03 20:42:00 98 /min [facility] Systolic blood pressure 2023-10-01 19:21:00 126 mm[Hg] [facility] Diastolic blood pressure 2023-10-01 19:21:00 84 mm[Hg] [facility] Heart rate 2023-10-01 19:21:00 87 /min [facility] Respiratory rate 2023-10-01 19:21:00 16 /min [facility] Body height 2023-10-01 19:21:00 157.5 cm [facility] Body weight 2023-10-01 19:21:00 65.227 kg [facility] BMI 2023-10-01 19:21:00 26.30 kg/m2 [facility] Oxygen saturation in Arterial blood by Pulse oximetry 2023-10-01 19:21:00 95 /min [facility] Systolic blood pressure 2023-07-13 14:04:00 131 mm[Hg] [facility] Diastolic blood pressure 2023-07-13 14:04:00 84 mm[Hg] [facility] Heart rate 2023-07-13 14:04:00 77 /min [facility] Respiratory rate 2023-07-13 14:04:00 18 /min [facility] Body height 2023-07-13 14:04:00 157.5 cm [facility] Body weight 2023-07-13 14:04:00 64.456 kg [facility] BMI 2023-07-13 14:04:00 25.99 kg/m2 [facility] Oxygen saturation in Arterial blood by Pulse oximetry 2023-07-13 14:04:00 99 /min [facility] Systolic blood pressure 2023-06-15 18:59:00 124 mm[Hg] [facility] Diastolic blood pressure 2023-06-15 18:59:00 79 mm[Hg] [facility] Heart rate 2023-06-15 18:59:00 78 /min [facility] Body height 2023-06-15 18:59:00 157.5 cm [facility] Body weight 2023-06-15 18:59:00 66.044 kg [facility] BMI 2023-06-15 18:59:00 26.63 kg/m2 [facility] Oxygen saturation in Arterial blood by Pulse oximetry 2023-06-15 18:59:00 100 /min [facility] Systolic blood pressure 2022-11-07 18:04:00 144 mm[Hg] [facility] Diastolic blood pressure 2022-11-07 18:04:00 101 mm[Hg] [facility] Heart rate 2022-11-07 17:54:00 82 /min [facility] Body temperature 2022-11-07 17:54:00 36.44 Xin [facility] Respiratory rate 2022-11-07 17:54:00 18 /min [facility] Body height 2022-11-07 17:54:00 157.5 cm [facility] Body weight 2022-11-07 17:54:00 56.836 kg [facility] BMI 2022-11-07 17:54:00 22.92 kg/m2 [facility] Systolic blood pressure 2022-11-04 19:41:00 130 mm[Hg] [facility] Diastolic blood pressure 2022-11-04 19:41:00 75 mm[Hg] [facility] Heart rate 2022-11-04 19:41:00 77 /min [facility] Body temperature 2022-11-04 19:41:00 37 Xin [facility] Respiratory rate 2022-11-04 19:41:00 18 /min [facility] Oxygen saturation in Arterial blood by Pulse oximetry 2022-11-04 19:41:00 100 /min [facility] Body weight 2022-11-04 14:05:00 58.968 kg [facility] BMI 2022-11-04 14:05:00 23.78 kg/m2 [facility] Systolic blood pressure 2022-10-15 20:04:00 111 mm[Hg] [facility] Diastolic blood pressure 2022-10-15 20:04:00 77 mm[Hg] [facility] Heart rate 2022-10-15 20:04:00 70 /min [facility] Body temperature 2022-10-15 20:04:00 36.11 Xin [facility] Respiratory rate 2022-10-15 20:04:00 18 /min [facility] Body height 2022-10-15 20:04:00 157.5 cm [facility] Body weight 2022-10-15 20:04:00 60.328 kg [facility] BMI 2022-10-15 20:04:00 24.33 kg/m2 [facility] [facility] Systolic blood pressure 2022-08-18 15:31:00 115 mm[Hg] [facility] Diastolic blood pressure 2022-08-18 15:31:00 78 mm[Hg] [facility] Heart rate 2022-08-18 15:31:00 59 /min [facility] Body temperature 2022-08-18 15:31:00 36.83 Xin [facility] Respiratory rate 2022-08-18 15:31:00 18 /min [facility] Body height 2022-08-18 15:31:00 157.5 cm [facility] Body weight 2022-08-18 15:31:00 58.287 kg Univ [facility] BMI 2022-08-18 15:31:00 23.50 kg/m2 [facility] Oxygen saturation in Arterial blood by Pulse oximetry 2022-08-18 15:31:00 99 /min [facility] Systolic blood pressure 2022-06-03 15:14:00 126 mm[Hg] [facility] Diastolic blood pressure 2022-06-03 15:14:00 81 mm[Hg] [facility] Heart rate 2022-06-03 15:14:00 77 /min Un[facility] Body temperature 2022-06-03 15:14:00 37.22 Xin [facility] Body height 2022-06-03 15:14:00 157.5 cm [facility] Body weight 2022-06-03 15:14:00 56.246 kg [facility] BMI 2022-06-03 15:14:00 22.68 kg/m2 [facility] Systolic blood pressure 2022-05-23 13:01:00 133 mm[Hg] [facility] Diastolic blood pressure 2022-05-23 13:01:00 89 mm[Hg] [facility] Heart rate 2022-05-23 13:01:00 88 /min [facility] Body temperature 2022-05-23 13:01:00 36.89 Xin [facility] Respiratory rate 2022-05-23 13:01:00 16 /min [facility] Oxygen saturation in Arterial blood by Pulse oximetry 2022-05-23 13:01:00 99 /min [facility] Body weight 2022-05-20 23:15:00 55.792 kg [facility] BMI 2022-05-20 23:15:00 22.50 kg/m2 [facility] Systolic blood pressure 2022-05-21 16:45:00 145 mm[Hg] [facility] Diastolic blood pressure 2022-05-21 16:45:00 83 mm[Hg] [facility] Respiratory rate 2022-05-21 16:45:00 16 /min [facility] Oxygen saturation in Arterial blood by Pulse oximetry 2022-05-21 16:45:00 100 /min [facility] Heart rate 2022-05-21 16:20:00 85 /[facility] 2022-05-21 16:20:00 36.39 Xin [facility] Body weight 2022-05-20 23:15:00 55.792 kg [facility] BMI 2022-05-20 23:15:00 22.50 kg/m2 [facility] Systolic blood pressure 2022-05-08 19:04:00 148 mm[Hg] [facility] Diastolic blood pressure 2022-05-08 19:04:00 89 mm[Hg] [facility] Heart rate 2022-05-08 19:04:00 83 /min [facility] Body temperature 2022-05-08 19:04:00 37.06 Xin [facility] Body height 2022-05-08 19:04:00 157.5 cm [facility] Body weight 2022-05-08 19:04:00 55.656 kg [facility] BMI 2022-05-08 19:04:00 22.44 kg/m2 [facility] Oxygen saturation in Arterial blood by Pulse oximetry 2022-05-08 19:04:00 100 /min [facility] Systolic blood pressure 2022-03-31 16:36:00 126 mm[Hg] [facility] Diastolic blood pressure 2022-03-31 16:36:00 86 mm[Hg] [facility] Heart rate 2022-03-31 16:36:00 76 /min [facility] Body temperature 2022-03-31 16:36:00 36.22 Xin [facility] Respiratory rate 2022-03-31 16:36:00 16 /min [facility] Body height 2022-03-31 16:36:00 157.5 cm [facility] Body weight 2022-03-31 16:36:00 55.702 kg [facility] BMI 2022-03-31 16:36:00 22.46 kg/m2 [facility] BP Systolic 2022-07-14 11:21:00 123 mm[Hg] [...] Performed Performing Clinician Source XR CHEST 2 2024-03-29 21:14:00 Jesus Garay [facility] C4 COMPLEMENT 2023-11-03 21:35:00 Shea Sebastian [facility] THYROID STIMULATING HORMONE 2023-11-03 21:35:00 Shea Sebastian [facility] URINALYSIS 2023-11-03 21:35:00 Shea Sebastian [facility] VITAMIN D, 25-OH 2023-11-03 21:35:00 Shea Sebastian [facility] ANTI-CENTROMERE B 2023-11-03 21:35:00 Shea Sebastian [facility] ANTI-SSA(RO) 2023-11-03 21:35:00 Shea Sebastian [facility] ANTI-DOUBLE STRANDED DNA 2023-11-03 21:35:00 Giovanni Sebastian [facility] XR CERVICAL SPINE 2 2023-10-01 21:45:25 Mikey Chang [facility] ASSIGNMENT OF BENEFITS 2023-06-15 18:19:46 Docto r Unassigned, [place] [facility] URINALYSIS 2022-11-04 15:50:00 Marciano Wayne [facility] BASIC METABOLIC PANEL (NA, K, CL, CO2, GLUCOSE, BUN, CREATININE, CA) 2022-11-04 15:30:00 Marciano Wayne [facility] CBC WITH DIFF 2022-11-04 15:30:00 Marciano Wayne [facility] CONSENT/REFUSAL FOR DIAGNOSIS AND TREATMENT 2022-11-04 13:58:51 Doctor Unassigned, [place] [facility] US PELVIS COMPLETE WITH TRANSVAGINAL 2022-10-28 18:57:42 Felisa Davis [facility] CBC WITH DIFF 2022-10-15 21:08:00 Felisa Davis [facility] PATIENT QUESTIONNAIRE 2022-08-18 06:01:00 Doctor Unassigned, [place] [facility] CBC WITH DIFF 2022-05-23 10:24:00 [facility]FF 2022-05-22 10:42:00 [facility] INCISION AND DRAINAGE ORAL CAVITY 2022-05-21 15:35:00 Suresh Bonilla [facility] TOOTH EXTRACTION 2022-05-21 15:35:00 Suresh Bonilla [facility] INCISION AND DRAINAGE ORAL CAVITY 2022-05-21 15:35:00 Suresh Bonilla [facility] TOOTH EXTRACTION 2022-05-21 15:35:00 Suresh Bonilla [facility] CBC WITH DIFF 2022-05-21 09:58:00 [facility] WITH DIFF 2022-05-21 09:58:00 Kennedy Young [facility] MAXILLOFACIAL/MANDIBLE W CONTRAST 2022-05-21 01:00:55 Cristy Lowe [facility] CT MAXILLOFACIAL/MANDIBLE W CONTRAST 2022-05-21 01:00:55 Cristy Lowe [facility] COMP. METABOLIC PANEL (18737) 2022-05-21 00:37:00 Cristy Lowe [facility] CBC WITH DIFF 2022-05-21 00:37:00 Cristy Lowe [facility] COMP. METABOLIC PANEL (01549) 2022-05-21 00:37:00 Cristy Lowe [facility] CBC WITH DIFF 2022-05-21 00:37:00 Cristy Lowe [facility] CONSENT/REFUSAL FOR DIAGNOSIS AND TREATMENT 2022-05-20 23:16:33 Doctor Unassigned, [place] [facility] CONSENT/REFUSAL FOR DIAGNOSIS AND TREATMENT 2022-05-20 23:16:33 Doctor Unassigned, [place] [facility] DISCLOSURE AND CONSENT, MEDICAL AND SURGICAL PROCEDURES 2022-05-08 05:01:00 Doctor Unassigned, [place] [facility] REFERRAL- REQUEST/RESPONSE 2022-04-24 05:01:00 Doctor Unassigned, [place] [facility] Plan of Care Planned Activity Planned Date Details Comments Source Goal Plan of Care Note [code = 45934-1] Goal Plan of Care Note [code = 13187-1] Goal Plan of Care Note [code = 70752-1] Goal Plan of Care Note [code = 40290-5] Goal Plan of Care Note [code = 86491-2] Goal Plan of Care Note [code = 44052-5] Goal Plan of Care Note [code = 74265-6] Goal Plan of Care Note [code = 50743-2] Goal Plan of Care Note [code = 68117-2] Goal Plan of Care Note [code = 09885-6] Goal Plan of Care Note [code = 81802-9] Goal Plan of Care Note [code = 48621-8] Goal Plan of Care Note [code = 43121-0] Goal Plan of Care Note [code = 46132-0] Goal Plan of Care Note [code = 89324-7] Goal Plan of Care Note [code = 48643-5] Goal Plan of Care Note [code = 51068-8] Goal Plan of Care Note [code = 98055-2] Goal Plan of Care Note [code = 18268-3] Goal Plan of Care Note [code = 18631-7] Goal Plan of Care Note [code = 20076-0] Encounters Start Date/Time End Date/Time Encounter Type Admission Type Attending Clinicians Care Facility Care Department Encounter ID Source 2021-12-24 13:43:15 Outpatient ANTONY PACHECO [facility] [employer] [id number] [facility] 2021-12-23 07:21:46 Outpatient ANTONY PACHECO [facility] [employer] [id number] [facility] 2024-08-22 00:00:00 2024-08-22 17:36:17 Nurse Triage Yumiko Simon Maegan D [facility] AT [facility] 1.2.840.114 350.1.13.10 4.2.7.2.686 [id number] [facility] 2024-08-22 00:00:00 2024-08-22 14:36:44 Patient Outreach Daphnie Dawson [facility] 1.2.840.114 350.1.13.10 4.2.7.2.686 [id number] [facility] 2024-08-22 13:00:00 2024-08-22 13:00:00 Outpatient R AVRIL LOPEZ [facility] [id number] [facility] 2024-07-05 13:00:00 2024-07-05 13:00:00 Outpatient R ELIU BARNES [facility] [id number] [facility] 2024-04-21 00:00:00 2024-05-28 18:24:33 Patient Secure Msg Doctor Unassigned, [place] Doctor Unassigned, [place] [facility] [place] [facility] 1.2.840.114 350.1.13.10 4.2.7.2.686 [id number] [facility] 2024-04-25 11:15:00 2024-04-25 11:15:00 Outpatient R [facility] [id number] [facility] 2024-04-22 15:30:00 2024-04-22 15:30:00 Outpatient R HUGH SYLVESTER ELISHA [facility] [id number] [facility] 2024-04-21 12:30:00 2024-04-21 12:30:00 Outpatient R ZEV VILLA [facility] [id number] [facility] 2024-04-04 00:00:00 2024-04-04 00:00:00 Outpatient R ELIU BARNES [facility] [id number] [facility] 2024-03-29 16:05:23 2024-03-29 23:59:00 Hospital Encounter Eliu Barnes [facility] 1.2.840.114 350.1.13.10 4.2.7.2.686 [id number] [facility] 2024-03-29 15:45:00 2024-03-29 16:00:00 Emanations Analysis Technician Visit Pcp-Lab Eliu Barnes Pcp-Lab [facility] 1.2.840.114 350.1.13.10 4.2.7.2.686 [id number] [facility] 2024-03-29 14:30:00 2024-03-29 15:31:45 [id number] 2024-03-29 14:30:00 2024-03-29 15:31:45 Office Visit Garay Jesuszachariah [facility] 1.2.840.114 350.1.13.10 4.2.7.2.686 [id number] [facility] 2024-03-29 00:00:00 2024-03-29 10:15:31 Telephone Enrike Garayn [facility] 1.2.840.114 350.1.13.10 4.2.7.2.686 [id number] [facility] 2024-03-23 00:00:00 2024-03-23 11:03:37 Patient Outreach Daphnie Dawson Michelle J [facility] 1.2.840.114 350.1.13.10 4.2.7.2.686 [id number] [facility] 2024-03-22 13:40:00 2024-03-22 15:33:34 Outpatient R LEN THURSTON [facility] [id number] [facility] 2024-03-22 13:40:00 2024-03-22 15:33:34 Office Visit Jesus Garay ShayleeLen chow [facility] 1.2.840.114 350.1.13.10 4.2.7.2.686 [id number] [facility] 2024-03-21 08:00:00 2024-03-21 08:00:00 Outpatient NILA STUBBS [facility] [id number] [facility] 2024-02-05 14:15:00 2024-02-05 14:15:00 Outpatient SHEA LEWIS LAURA [facility] [id number] [facility] 2024-02-04 15:15:00 2024-02-04 15:15:00 Outpatient SHEA LEWIS LAURA [facility] [id number] [facility] 2024-01-12 13:30:00 2024-01-12 13:30:00 Outpatient ZEV JULIEN [facility] [id number] [facility] 2023-12-07 11:00:00 2023-12-07 11:00:00 Outpatient JIMMY NIELSON [facility] [id number] [facility] 2023-11-24 00:00:00 2023-11-24 00:00:00 Telephone Zev Villa [facility] 1.2.840.114 350.1.13.10 4.2.7.2.686 [id number] [facility] 2023-11-19 15:30:00 2023-11-19 15:30:00 Outpatient JIMMY NIELSON [facility] [id number] [facility] 2023-11-17 00:00:00 2023-11-17 00:00:00 Outpatient ZEV JULIEN [facility] [id number] [facility] 2023-11-13 00:00:00 2023-11-13 00:00:00 Telephone Llanos, Anne [facility] 1.2840.114 350.1.13.10 4.2.7.2.686 [id number] [facility] 2023-11-10 10:00:00 2023-11-10 10:48:16 Outpatient R ZEV VILLA [facility] [id number] [facility] 2023-11-10 10:00:00 2023-11-10 10:48:16 Office Visit Zev Villa [facility] 1.2.840.114 350.1.13.10 4.2.7.2.686 [id number] [facility] 2023-11-10 00:00:00 2023-11-10 00:00:00 [facility]phone [facility] [place] [facility] 1.2.840.114 350.1.13.10 4.2.7.2.686 [id number] [facility] 2023-11-03 16:45:00 2023-11-03 17:00:00 Emanations Analysis Technician Visit Pcp-Lab Shea Sebastian [facility] 1.2.840.114 350.1.13.10 4.2.7.2.686 [id number] [facility] 2023-11-03 16:45:00 2023-11-03 16:45:00 Outpatient SHEA LEWIS LAURA [facility] [id number] [facility] 2023-11-03 16:15:00 2023-11-03 16:24:45 Office Visit Shea Sebastian [facility] 1.2.840.114 350.1.13.10 4.2.7.2.686 [id number] [facility] 2023-10-26 00:00:00 2023-10-26 00:00:00 Telephone Song Chang [facility] 1..114 350.1.13.10 4.2.7.2.686 [id number] [facility] 2023-10-01 15:26:42 2023-10-01 23:59:00 Hospital Encounter Song Chang [facility] 1..114 350.1.13.10 4.2.7.2.686 [id number] [facility] 2023-10-01 15:00:00 2023-10-01 15:15:00 Emanations Analysis Technician Visit Vtc-Lab Song [facility] 1.114 350.1.13.10 4.2.7.2.686 [id number] [facility] 2023-10-01 13:45:00 2023-10-01 14:52:53 Outpatient R SONG CHANG PETER [facility] [id number] [facility] 2023-10-01 13:45:00 2023-10-01 14:52:53 Office Visit Song Chang [facility] 1.114 350.1.13.10 4.2.7.2.686 [id number] [facility] 2023-07-14 09:00:00 2023-07-14 09:00:00 Outpatient ANNE ALVAREZ [facility] [id number] [facility] 2023-07-13 08:00:00 2023-07-13 08:48:11 Outpatient ANNE ALVAREZ [facility] [id number] [facility] 2023-07-13 08:00:00 2023-07-13 08:48:11 Office Visit Anne Llanos [facility] ALICEGABRIEL GLOVERAlonsoQUEENIEClay [facility] 1.114 350.1.13.10 4.2.7.2.686 [id number] [facility] 2023-06-15 14:00:00 2023-06-15 14:35:44 [id number] 2023-06-15 14:00:00 2023-06-15 14:35:44 [facility] 1..114 350.1.13.10 4.2.7.2.686 [id number] [facility] 2023-06-15 00:00:00 2023-06-15 00:00:00 Orders Only Doctor Unassigned, [place] [facility] 1..114 350.1.13.10 4.2.7.2.686 [id number] [facility] 2023-05-18 14:30:00 2023-05-18 14:30:00 Outpatient R SHANDRA CANTU [facility] [id number] [facility] 2023-04-01 00:00:00 2023-04-01 00:00:00 Patient Secure Msg Doctor Unassigned, [place] [facility] 1..114 350.1.13.10 4.2.7.2.686 [id number] [facility] 2023-03-31 00:00:00 2023-03-31 00:00:00 Patient Secure Msg Doctor Unassigned, [place] [facility] 1..114 350.1.13.10 4.2.7.2.686 [id number] [facility] 2022-11-14 00:00:00 2022-11-14 00:00:00 Patient Secure Msg Doctor Unassigned, [place] [facility] ADJUSTMENT CLERK [facility] 1..114 350.1.13.10 4.2.7.2.686 [id number] [facility] 2022-11-07 13:00:00 2022-11-07 13:54:22 Outpatient R MARINO WILLS [facility] [id number] [facility] 2022-11-07 13:00:00 2022-11-07 13:54:22 Office Visit Pgy3 Marino Wills [facility] 1.2840.114 350.1.13.10 4.2.7.2.686 [id number] [facility] 2022-11-04 09:06:00 2022-11-04 15:02:00 Emergency X MARCIANO WAYNE [facility] [id number] [facility] 2022-11-04 09:06:00 2022-11-04 15:02:00 Emergency [facility] 1..840.114 350.1.13.10 4.2.7.2.686 [id number] [facility] 2022-11-03 00:00:00 2022-11-03 00:00:00 Cynthia Davis [facility] 1.2.840.114 350.1.13.10 4.2.7.2.686 [id number] [facility] 2022-10-28 13:07:55 2022-10-28 23:59:00 Outpatient R RYAN FELISA [facility] [id number] [facility] 2022-10-28 13:07:55 2022-10-28 23:59:00 Hospital Encounter Ryan [facility] 1.2840.114 350.1.13.10 4.2.7.2.686 [id number] [facility] 2022-10-15 13:30:00 2022-10-15 15:10:01 Outpatient R RYAN [facility] [id number] [facility] 2022-10-15 13:30:00 2022-10-15 15:10:01 Office Visit Felisa Davis [facility] 1.2.840.114 350.1.13.10 4.2.7.2.686 [id number] [facility] 2022-08-18 11:30:00 2022-08-18 11:45:00 Emanations Analysis Technician Visit Pcp-Lab Jimmy Carroll [facility] 1.2840.114 350.1.13.10 4.2.7.2.686 [id number] [facility] 2022-08-18 09:40:00 2022-08-18 10:58:45 Outpatient JIMMY NIELSON [facility] [id number] [facility] 2022-08-18 09:40:00 2022-08-18 10:58:45 Office Visit Sharan Benjamin Samuel E [facility] 1.2840.114 350.1.13.10 4.2.7.2.686 [id number] [facility] 2022-08-18 00:00:00 2022-08-18 00:00:00 Orders Only Doctor Unassigned, [place] [facility] 1.2840.114 350.1.13.10 4.2.7.2.686 [id number] [facility] 2022-07-22 14:00:34 2022-07-22 14:00:34 Outpatient [facility] [id number] Kp Chatman 2022-07-18 00:00:00 2022-07-18 00:00:00 Nurse Triage Katy Hadley [facility] 1.2840.114 350.1.13.10 4.2.7.2.686 [id number] [facility] 2022-07-18 00:00:00 2022-07-18 00:00:[address] [facility] .114 350.1.13.10 4.2.7.2.686 [id number] [facility] 2022-07-14 11:05:24 2022-07-14 11:05:24 Outpatient [facility] [id number] Kp Chatman 2022-07-14 00:00:00 2022-07-14 00:00:00 Outpatient Visit [id number] 2022-07-01 00:00:00 2022-07-01 00:00:00 Patient Outreach Simeon Skinner 1.84.114 350.1.13.10 4.2.7.2.686 [id number] [facility] 2022-06-16 00:00:00 2022-06-16 00:00:00 Patient Outreach Simeon Skinner 1..114 350.1.13.10 4.2.7.2.686 [id number] [facility] 2022-06-03 10:00:00 2022-06-03 10:23:42 Outpatient R SURESH BONILLA [facility] [id number] [facility] 2022-06-03 10:00:00 2022-06-03 10:23:42 Office Visit Suresh Bonilla [facility] 1..114 350.1.13.10 4.2.7.2.686 [id number] [facility] 2022-05-26 00:00:00 2022-05-26 00:00:00 Telephone Suresh Bonilla [facility] NIR [place] 1.84.114 350.1.13.10 4.2.7.2.686 [id number] [facility] 2022-05-20 18:17:00 2022-05-23 13:28:00 Outpatient X SURESH BONILLA [facility] [id number] [facility] 2022-05-20 18:17:00 2022-05-23 13:28:00 Emergency Cristy Lowe Suresh [facility] 1.2.840.114 350.1.13.10 4.2.7.2.686 [id number] [facility] 2022-05-23 00:00:00 2022-05-23 00:00:00 Transition of Care Peggy Benitez [facility] 1.2.840.114 350.1.13.10 4.2.7.2.686 [id number] [facility] 2022-05-21 10:24:00 2022-05-21 11:48:00 Surgery Suresh Bonilla [facility] 1.2.840.114 350.1.13.10 4.2.7.2.686 [id number] [facility] 2022-05-20 00:00:00 2022-05-20 00:00:00 Telephone Chau Carver [facility] 1.2.840.114 350.1.13.10 4.2.7.2.686 [id number] [facility] 2022-05-08 14:00:00 2022-05-08 14:30:00 Office Visit Chau Carver [facility] 1.2.840.114 350.1.13.10 4.2.7.2.686 [id number] [facility] 2022-05-08 14:00:00 2022-05-08 14:00:00 Outpatient R CHAU CARVER [facility] [id number] [facility] 2022-05-08 00:00:00 2022-05-08 00:00:00 Orders Only Doctor Unassigned, [place] [facility] 1.2.840.114 350.1.13.10 4.2.7.2.686 [id number] [facility] 2022-04-29 10:00:00 2022-04-29 10:00:00 Outpatient SURESH MARSHALL [facility] [id number] [facility] 2022-04-24 00:00:00 2022-04-24 00:00:00 Orders Only Doctor Unassigned, [place] [facility] 1.840.114 350.1.13.10 4.2.7.2.686 [id number] [facility] 2022-03-31 11:15:00 2022-03-31 11:48:34 Office Visit Ryan Conemaugh [facility] 1.840.114 350.1.13.10 4.2.7.2.686 [id number] [facility] 2022-03-31 11:15:00 2022-03-31 11:48:34 Outpatient Shari DAVIS [facility] [id number] [facility] 2022-03-31 11:15:00 2022-03-31 11:15:00 Outpatient Shari DAVIS [facility] [id number] [facility] 2022-01-25 00:00:00 2022-01-25 00:00:00 Telephone Antony Joshua [facility] 1.840.114 350.1.13.10 4.2.7.2.686 [id number] [facility] 2022-01-23 05:56:00 2022-01-24 16:20:00 Outpatient R ANTONY JOSHUA [facility] [employer] [id number] [facility] 2022-01-23 05:56:00 2022-01-24 16:20:00 Hospital Encounter Joshua, [facility] 1.2.840.114 350.1.13.10 4.2.7.2.686 [id number] [facility] 2022-01-23 07:00:00 2022-01-23 12:15:00 Surgery Joshua, [facility] 1.2.840.114 350.1.13.10 4.2.7.2.686 [id number] [facility] 2022-01-23 00:00:00 2022-01-23 00:00:00 Orders Only Doctor Unassigned, [place] [facility] 1.2.840.114 350.1.13.10 4.2.7.2.686 [id number] [facility] 2022-01-21 00:00:00 2022-01-21 00:00:[address] [facility] 1.2.840.114 350.1.13.10 4.2.7.2.686 [id number] [facility] 2022-01-20 00:00:00 2022-01-20 00:00:00 Telephone Locke, Arianna [facility] 1.2.840.114 350.1.13.10 4.2.7.2.686 [id number] [id number] [facility] 2022-01-16 00:00:00 2022-01-16 00:00:00 Patient Secure Otis Luevano [facility] 1.2.840.114 350.1.13.10 4.2.7.2.686 [id number] [facility] 2022-01-15 07:44:45 2022-01-15 23:59:00 Outpatient R OTIS HOLLOWAY [facility] [id number] [facility] 2022-01-15 07:43:28 2022-01-15 07:43:28 Outpatient R OTIS HOLLOWAY [facility] [id number] [facility] 2022-01-14 08:45:00 2022-01-14 09:00:00 Laboratory Only Only, [facility] 1..[facility].114 350.1.13.10 4.2.7.2.686 [id number] [facility] 2022-01-14 08:45:00 2022-01-14 08:45:00 Outpatient R OTIS HOLLOWAY [facility] [id number] [facility] 2022-01-10 00:00:00 2022-01-10 00:00:00 Patient Outreach Melanie Lou [facility] 1..840.114 350.1.13.10 4.2.7.2.686 [id number] [facility] 2021-12-27 13:00:00 2021-12-27 13:00:00 Outpatient Shari BEARDEN YENIFER [facility] [id number] [facility] 2021-12-27 13:00:00 2021-12-27 13:00:00 Outpatient Shari BEARDEN BENTLEY [facility] [id number] [facility] 2021-12-27 09:00:00 2021-12-27 09:00:00 [facility] [id number] 2021-12-25 10:00:00 2021-12-25 10:29:11 [facility] 1..840.114 350.1.13.10 4.2.7.2.686 [id number] [facility] 2021-12-25 10:00:00 2021-12-25 10:29:11 Outpatient R OTIS HOLLOWAY [facility] [id number] [facility] 2021-12-25 10:00:00 2021-12-25 10:00:00 Outpatient OTIS ESPARZA [facility] [id number] [facility] 2021-12-22 00:00:00 2021-12-22 00:00:00 Patient Secure Msg [facility] 1.2840.114 350.1.13.10 4.2.7.2.686 [id number] [facility] 2021-12-22 00:00:00 2021-12-22 00:00:00 Prep For Surgery [facility] 1.840.114 350.1.13.10 4.2.7.2.686 [id number] [facility] 2021-12-22 00:00:00 2021-12-22 00:00:00 Case Management [facility] 1.20.114 350.1.13.10 4.2.7.2.686 [id number] [facility] 2021-12-18 00:00:00 2021-12-18 00:00:00 Patient Secure Msg Doctor Unassigned, [place] [facility] 1.2840.114 350.1.13.10 4.2.7.2.686 [id number] [facility] 2021-12-11 15:30:00 2021-12-11 15:30:00 Outpatient R ANTONY JOSHUA [facility] [employer] [id number] [facility] 2021-12-09 10:45:00 2021-12-09 11:00:00 Laboratory Only Only, Adc Test Shawn Agudelo [facility] 1.2840.114 350.1.13.10 4.2.7.2.686 [id number] [facility] 2021-12-09 10:45:00 2021-12-09 10:45:00 Outpatient R SOHPIA SHAWN [facility] [id number] [facility] 2021-12-09 10:45:00 2021-12-09 10:45:00 Outpatient R SOPHIA SHAWN [facility] [id number] [facility] 2021-12-09 00:00:00 2021-12-09 00:00:00 Telephone Carlos Theodora [facility] 1..840.114 350.1.13.10 4.2.7.2.686 [id number] [facility] 2021-12-06 15:32:00 2021-12-06 17:11:00 Emergency X KAREN, SENA [facility] ERT [id number] [facility] 2021-12-06 15:32:00 2021-12-06 17:11:00 Emergency Karen, Sena [facility] 1..840.114 350.1.13.10 4.2.7.2.686 [id number] [facility] 2021-12-06 15:32:00 2021-12-06 17:11:00 Emergency X KAREN CYNMARÍA ELENA [facility] ERT [id number] [facility] 2021-12-06 15:32:00 2021-12-06 15:32:00 Emergency X KAREN, CYNISE [facility] ERT [id number] [facility] 2021-12-06 13:10:00 2021-12-06 13:40:00 Office Visit Alejandro Benites, Attending [facility] 1..840.114 350.1.13.10 4.2.7.2.686 [id number] [facility] 2021-12-06 13:10:00 2021-12-06 13:10:00 Outpatient Shari LOPEZ, ATTENDING [facility] [id number] [facility] 2021-12-06 13:10:00 2021-12-06 13:10:00 Outpatient R JESSICA, JEFF [facility] [id number] [facility] 2021-12-06 13:10:00 2021-12-06 13:10:00 Outpatient R CECILJUDITLYUBOV GERALDINEFUNMI [facility] [id number] [facility] 2021-12-06 00:00:00 2021-12-06 00:00:00 Case Management Montse Shane [facility] 1.2840.114 350.1.13.10 4.2.7.2.686 [id number] [facility] 2021-12-05 04:22:00 2021-12-05 04:22:00 Outpatient SarthakJasminaCleopatra [facility] [id number] [facility] 2021-12-05 00:00:00 2021-12-05 00:00:00 Case Management Antony Joshua [facility] MED[facility] OFFICE BUILD[facility] 1.2840.114 350.1.13.10 4.2.7.2.686 [id number] [facility] 2021-12-05 00:00:00 2021-12-05 00:00:00 Telephone [facility] 1.2840.114 350.1.13.10 4.2.7.2.686 [id number] [facility] 2021-11-29 13:00:00 2021-11-29 13:00:00 Outpatient BENTLEY LEWIS [facility] [id number] [facility] 2021-11-28 00:00:00 2021-11-28 00:00:00 Prep For Surgery [facility] 1.2840.114 350.1.13.10 4.2.7.2.686 [id number] [id number] [facility] 2021-11-28 00:00:00 2021-11-28 00:00:[address] [facility] 1.2.840.114 350.1.13.10 4.2.7.2.686 [id number] [facility] 2021-11-22 09:07:00 2021-11-22 16:38:00 Outpatient EMILY NAVAS [facility] [employer] [id number] [facility] 2021-11-22 09:07:00 2021-11-22 16:38:00 Hospital Encounter [facility] 1.2.840.114 350.1.13.10 4.2.7.2.686 [id number] [facility] 2021-11-22 11:05:00 2021-11-22 13:43:00 Surgery Miguel [facility] 1.2.840.114 350.1.13.10 4.2.7.2.686 [id number] [facility] 2021-11-22 00:00:00 2021-11-22 00:00:00 Telephone Noble Joshuang [facility] 1.2.840.114 350.1.13.10 4.2.7.2.686 [id number] [facility] 2021-11-21 13:15:00 2021-11-21 13:18:56 Outpatient EMILY NAVAS [facility] [id number] [facility] 2021-11-21 13:15:00 2021-11-21 13:18:56 Laboratory Only Only[facility] Test Emily Rivera [facility] 1.2.840.114 350.1.13.10 4.2.7.2.686 [id number] [facility] 2021-11-21 09:00:00 2021-11-21 09:00:00 Outpatient EMILY NAVAS [facility] [id number] [facility] 2021-11-18 11:41:00 2021-11-18 17:07:00 Emergency X SABINO DUMONT [facility] ERT [id number] [facility] 2021-11-18 11:41:00 2021-11-18 17:07:00 Emergency Sabino Dumont [facility] 1.0.114 350.1.13.10 4.2.7.2.686 [id number] [facility] 2021-11-12 13:00:00 2021-11-12 15:18:33 [facility] 350.1.13.10 4.2.7.2.686 [id number] [facility] 2021-11-12 13:00:00 2021-11-12 15:18:33 Outpatient Shari DAVIS [facility] [id number] [facility] 2021-11-12 13:00:00 2021-11-12 13:00:00 Outpatient Shari DAVIS [facility] [id number] [facility] 2021-11-12 13:00:00 2021-11-12 13:00:00 Outpatient Shari DAVIS [facility] [id number] [facility] 2021-11-12 00:00:00 2021-11-12 00:00:00 Orders Only Doctor Unassigned, [place] [facility] 1.0.114 350.1.13.10 4.2.7.2.686 [id number] [facility] 2021-10-29 00:00:00 2021-10-29 00:00:00 [facility] 1.20.114 350.1.13.10 4.2.7.2.686 [id number] [facility] 2021-10-24 13:15:00 2021-10-24 15:47:39 Outpatient R FRANKLYN CASTILLO [facility] [id number] [facility] 2021-10-24 13:15:00 2021-10-24 15:47:39 Outpatient R FRANKLYN CASTILLO [facility] [id number] [facility] 2021-10-24 13:15:00 2021-10-24 15:47:39 [id number] [facility] 2021-10-24 13:15:00 2021-10-24 15:47:39 [facility] 1.840.114 350.1.13.10 4.2.7.2.686 [id number] [facility] 2021-10-24 13:15:00 2021-10-24 13:15:00 Outpatient R FRANKLYN CASTILLO [facility] [id number] [facility] 2021-10-24 00:00:00 2021-10-24 00:00:[address] [facility] 1..114 350.1.13.10 4.2.7.2.686 [id number] [facility] 2021-10-09 13:40:00 2021-10-10 14:24:00 Outpatient X MARINO WILLS [facility] [employer] [id number] [facility] 2021-10-09 13:40:00 2021-10-10 14:24:00 Outpatient X MARINO WILLS [facility] [employer] [id number] [facility] 2021-10-09 13:40:00 2021-10-10 14:24:00 Emergency Alma Rosa Sethi Perry L [facility] 1.840.114 350.1.13.10 4.2.7.2.686 [id number] [facility] 2021-10-10 00:00:00 2021-10-10 00:00:[address] [facility] 1.2.840.114 350.1.13.10 4.2.7.2.686 [id number] [facility] 2021-10-10 00:00:00 2021-10-10 00:00:00 Telephone Alma Rosa Sethi [facility] 1.2.840.114 350.1.13.10 4.2.7.2.686 [id number] [facility] 2021-07-15 00:00:00 2021-07-15 00:00:00 Orders Only Doctor Unassigned, [place] [facility] 1.2.840.114 350.1.13.10 4.2.7.2.686 [id number] [facility] 2021-07-02 00:00:00 2021-07-02 00:00:00 [facility], [facility] 1.2.840.114 350.1.13.10 4.2.7.2.686 [id number] [facility] 2020-02-22 12:29:09 2020-02-22 15:00:00 Emergency Curt [facility] 1.2.840.114 350.1.13.10 4.2.7.2.686 [id number] 2020-02-22 12:29:09 2020-02-22 15:00:00 Emergency Curt Kemp [facility] 1.2.840.114 350.1.13.10 4.2.7.2.686 [id number] [facility] 2020-02-22 12:29:09 2020-02-22 12:29:09 Emergency X Curt KEMP [facility] ERT [id number] [facility] 2020-01-30 08:36:00 2020-01-30 08:36:00 Outpatient Lezak_Judityla [facility] [id number] [facility] 2020-01-28 01:01:00 2020-01-28 01:01:00 Outpatient Lezak_Kayla [facility] [id number] [facility] 2019-12-02 11:44:00 2019-12-02 11:44:00 Outpatient Lezak_Judityla [facility] [id number] [facility] 2019-01-07 10:23:00 2019-01-07 12:27:00 Outpatient E ZEV PAEZ [facility] [id number] [facility] 2018-12-04 10:20:00 2018-12-04 15:57:00 Outpatient E KEYUR PUENTE [facility] [id number] [facility] 2018-11-11 04:05:00 2018-11-11 06:00:00 Outpatient E MARKELL HUNT [facility] [id number] [facility] 2018-10-12 06:24:00 2018-10-12 08:08:00 Outpatient E MAUREEN PAULINE [facility] [id number] [facility] 2018-09-30 13:45:00 2018-09-30 14:12:00 Outpatient E MELANIE LAI [facility] [id number] [facility] 2018-09-04 17:32:00 2018-09-04 18:30:00 Outpatient E MELANIE LAI [facility] [id number] [facility] 2018-08-19 08:43:00 2018-08-19 10:15:00 Outpatient E HANY WILL [facility] [id number] [facility] 2018-08-08 13:34:00 2018-08-08 16:43:00 Outpatient E DARÍO CHAMBERS [facility] [id number] [facility] Results Test Description Test Time Test [...] osseous lesions or acute osseous findingsare detected. [facility] 16:29:12* Test Item Value Reference Range Interpretation Comme nts Anti-Neely (test code = 8045719213) Negative Negative PARTH (test code = PARTH) Positive - Antibod y detected.Negative - No antibody detected. Lab Interpretation (test code = 74712-6) Normal [facility]-Dbaquvslwaszphrit2302-22-27 16:29:12* Test Item Value Reference Range Interpretation Comme nts Anti-Ribonucleoprotein (test code = 1392960199) Negative Negative PARTH (test code = PARTH) Positive - Antibod y detected.Negative - No antibody detected. Lab Interpretation (test code = 79211-3) Normal [facility]-Centromere [id number] 16:29:12* Test Item Value Reference Range Interpretation Comme nts ANTI-CENTR (test code = 5536067566) Negative Negative PARTH (test code = PARTH) Positive - Antibod y detected.Negative - No antibody detected. Lab Interpretation (test code = 44733-5) Normal [facility]-SCL-408953-36-23 16:29:12* Test Item Value Reference Range Interpretation Comme nts ANTI-SCL70 (test code = 7473122472) Negative Negative PARTH (test code = PARTH) Positive - Antibod y detected.Negative - No antibody detected. Lab Interpretation (test code = 14231-6) Normal [facility]-SSA(RO)2023-11-04 16:29:12* Test Item Value Reference Range Interpretation Comme nts ANTI-SSA(RO) (test code = 2278623512) Positive Negative A PARTH (test code = PARTH) Positive - Antibod y detected.Negative - No antibody detected. Lab Interpretation (test code = 27074-0) Abnormal [facility]([place])2023-11-04 16:29:12* Test Item Value Reference Range Interpretation Comme nts Anti-SSB(LA) (test code = 4544434917) Negative Negative PARTH (test code = PARTH) Positive - Antibod y detected.Negative - No antibody detected. Lab Interpretation (test code = 08388-1) Normal [facility] AmericaC3 Ukmgaddjjb6311-67-14 16:28:24* Test Item Value Reference Range Interpretation Comme nts C3 (test code = 6359486662) 110 mg/dL 86-184 Lab Interpretation (test cod e = 05296-5) Normal [facility] AmericaC4 Dbrblzbjtf1666-89-22 16:28:24* Test Item Value Reference Range Interpretation Comme nts C4 (test code = 8539348629) 19 mg/dL 20-59 L Lab Interpretation (test cod e = 17250-9) Abnormal [facility] AmericaThyroid Stimulating Qhqxsny8704-64-33 01:19:27 * Test Item Value Reference Range Interpretation Comme nts TSH (test code = 0263109227) 0.95 0.45-4.70 Biotin has been reported to cause a negative bias, interpret results relative to patient's use of biotin. Lab Interpretation (test code = 06817-8) Normal [facility] AmericaVitamin D, [id number] 00:57:43* Test Item Value Reference Range Interpretation Comme nts VIT D 25OH (test code = 25580-7) 37 ng/mL 25-80 PARTH (test code = PARTH) Deficiency: <20 ng/mLInsufficiency : 20-24 ng/mLOptimal: 25-80 ng/mL Lab Interpretation (test code = 16232-3) Normal [facility] AmericaXR CERVICAL SPINE 2 [id number] 22:34:22XR CERVICAL SPINE 2 VW HISTORY: Female 43 years neck pain COMPARISON: None FINDINGS: The vertebral bodies are normal in height and in normal alignment. Theatlantodental space is normal. The prevertebral soft tissues areunremarkable. Diffuse mild degenerative changes, most pronounced at the C6-C7 level. Noacute osseous abnormality.[facility] AmericaBASIC METABOLIC PANEL (NA, K, CL, CO2, GLUCOSE, BUN, CREATININE, CA)2022-11-04 15:48:28* Test Item Value Reference Range Interpretation Comme nts NA (test code = 9416334486) 137 mmol/L 135-145 K (test code = 0652097631) 4.1 mmol/L 3.5-5.0 CL (test code = 5935844746) 106 mmol/L 98-108 CO2 TOTAL (test code = 9757642516) 23 mmol/L 23-31 AGAP (test code = 7747092202) 8 2-16 BUN (test code = 8426447311) 12 mg/dL 7-23 GLUCOSE (test code = 9677913634) 109 mg/dL 70-110 CREATININE (test code = 8714468251) 0.44 mg/dL 0.50-1.04 L CALCIUM (test code = 9789840034) 8.8 mg/dL 8.6-10.6 eGFR (test code = 5148000303) 156.8 mL/min/1.73m2 PARTH (test code = PARTH) [...] imaging tests). Lab Interpretation (test code = 83908-8) Abnormal [facility] WITH [id number] 15:38:28* Test Item Value Reference Range Interpretation Comme nts WBC (test code = 6690-2) 8.04 See_Comment [Automated Regena[employer] ge] The system which generated this result transmitted reference range: 4.30 - 11.10 10*3/?L. The reference range was not used to interpret this result as normal/abnormal. RBC (test code = 789-8) 4.38 See_Comment [Automated RegenaStema ge] The system which generated this result [...] 34.1 g/dL 31.6-35.1 RDW-SD (test code = 71900-1) 42.8 fL 39.0-49.9 RDW-CV (test code = 788-0) 13.0 % 12.0-15.5 PLT (test code = 777-3) 288 See_Comment [Automated RegenaStema ge] The system which generated this result transmitted reference range: 166 - 358 10*3/?L. The reference range was not used to interpret this result as normal/abnormal. MPV (test code = 00377-2) 10.2 fL 9.5-12.9 NRBC/100 WBC (test code = 7699748576) 0.0 See_Comment [Automated me ssage] The system which generated this result transmitted reference range: 0.0 - 10.0 /100 WBCs. The reference range was not used to interpret this result as normal/abnormal. NRBC x10^3 (test code = 9396662992) See_Comment [Automated me ssage] The system which generated this result transmitted reference range: 10*3/?L. The reference range was not used to interpret this result as normal/abnormal. GRAN MAT (NEUT) % (test code = 770-8) 61.9 % IMM GRAN % (test code = 5773562164) 0.20 % LYMPH % (test code = 736-9) 29.1 % MONO % (test code = 5905-5) 7.1 % EOS % (test code = 713-8) 1.2 % BASO % (test code = 706-2) 0.5 % GRAN MAT x10^3(ANC) (test code = 1474955166) 4.97 10*3/uL 1.88-7.09 IMM GRAN x10^3 (test code = 1006919327) 0.00-0.06 LYMPH x10^3 (test code = 731-0) 2.34 10*3/uL 1.32-3.29 MONO x10^3 (test code = 742-7) 0.57 10*3/uL 0.33-0.92 EOS x10^3 (test code = 711-2) 0.10 10*3/uL 0.03-0.39 BASO x10^3 (test code = 704-7) 0.04 10*3/uL 0.01-0.07 [facility], THIRD [id number] 06:23:27* Test Item Value Reference Range Interpretation Comme [facility] TSH, THIRD GENERATION (test code = 2821) 1.220 UIU/ML 0.400-4.100 VITAMIN [id number] 06:23:27* Test Item Value Reference Range Interpretation Comme [facility] VITAMIN B-12 (test code = 2840) 312 PG/ML 200-950 VITAMIN D, 25 [id number] 04:36:56* Test Item Value Reference Range Interpretation Comme [facility] VITAMIN D, 25 OH (test code = [...] . . . . NG/ML 30-100 HEMOGLOBIN [id number] 03:56:42* Test Item Value Reference Range Interpretation Comme nts HEMOGLOBIN A1c (test code = 35225) 5.8 % 4.2-5.6 H UNLESS OTHERWISE INDICATED, ALL TESTING PERFORMED [facility] PATH[facility] [employer] [address] [place] [address] RN FIRST ASSIST: NAILA OATES M.D. CLIA NUMBER [id number] [facility] [place]. [id number] COMPREHENSIVE METABOLIC [id number] 03:29:09* Test Item Value Reference Range Interpretation Comme nts GLUCOSE (test code = 7) 86 MG/DL 70-99 BUN (test code = 8) 16 MG/DL 6-20 CREATININE (test code = 2214) 0.61 MG/DL 0.60-1.30 eGFR (2020 CKD-EPI) (test code = 10624) 115 ML/MIN/1.73 >60 CALC BUN/CREAT (test code = 2235) 26 RATIO 6-28 SODIUM (test code = 2231) 138 MEQ/L 133-146 POTASSIUM (test code = 2228) 4.1 MEQ/L 3.5-5.4 CHLORIDE (test code = 2215) 99 MEQ/L 95-107 CARBON DIOXIDE (test code = 2206) 23 MEQ/L 19-31 CALCIUM (test code = 2209) 9.6 MG/DL 8.5-10.5 PROTEIN, TOTAL (test code = 2229) 8.0 G/DL 6.1-8.3 ALBUMIN (test code = 2201) 5.1 G/DL 3.5-5.2 CALC GLOBULIN (test code = 2240) 2.9 G/DL 1.9-3.7 CALC A/G RATIO (test code = 2234) 1.8 RATIO 1.0-2.6 BILIRUBIN, TOTAL (test code = 2207) 1.2 MG/DL See_Comment [Automated me ssage] The system which generated this result transmitted reference range: <=1.2. The reference range was not used to interpret this result as normal/abnormal. ALKALINE PHOSPHATASE (test code = 2204) 67 U/L 40-113 AST (test code = 2218) 22 U/L 9-40 ALT (test code = 2219) 30 U/L 5-40 CBC W/AUTO DIFF WITH [id number] 02:24:23* Test Item Value Reference Range Interpretation [...] 0.00-0.10 ABS NUCLEATED RBCS (test code = 21586) 0.00 K/UL 0.00-0.11 CBC WITH [id number] 10:42:11* Test Item Value Reference Range Interpretation Comme nts WBC (test code = 6690-2) See_Comment [Automated [employer]enaStema ge] The system which generated this result transmitted reference range: 4.30 - 11.10 10*3/?L. The reference range was not used to interpret this result as normal/abnormal. RBC (test code = 789-8) See_Comment L [Automated [employer] ge] The system which generated this result [...] 33.3 g/dL 31.6-35.1 RDW-SD (test code = 97731-4) 45.3 fL 39-49.9 RDW-CV (test code = 788-0) 13.3 % 12-15.5 PLT (test code = 777-3) See_Comment [Automated [employer]] The system which generated this result transmitted reference range: 166 - 358 10*3/?L. The reference range was not used to interpret this result as normal/abnormal. MPV (test code = 10944-2) 10.5 fL 9.5-12.9 NRBC/100 WBC (test code = [id number]) See_Comment [[email or web address] [email or web address] ssage] The system which generated this result transmitted reference range: 0.0 - 10.0 /100 WBCs. The reference range was not used to interpret this result as normal/abnormal. NRBC x10^3 (test code = 4440905094) See_Comment [Automated messa ge] The system which generated this result transmitted reference range: 10*3/?L. The reference range was not used to interpret this result as normal/abnormal. GRAN MAT (NEUT) % (test code = 770-8) 37.8 % IMM GRAN % (test code = 5420599715) 0.50 % LYMPH % (test code = 736-9) 51.2 % MONO % (test code = 5905-5) 8.1 % EOS % (test code = 713-8) 1.9 % BASO % (test code = 706-2) 0.5 % GRAN MAT x10^3(ANC) (test code = 2975049961) 2.43 10*3/uL 1.88-7.09 IMM GRAN x10^3 (test code = 7885054610) 0.03 10*3/uL 0-0.06 LYMPH x10^3 (test code = 731-0) 3.29 10*3/uL 1.32-3.29 MONO x10^3 (test code = 742-7) 0.52 10*3/uL 0.33-0.92 EOS x10^3 (test code = 711-2) 0.12 10*3/uL 0.03-0.39 BASO x10^3 (test code = 704-7) 0.03 10*3/uL 0.01-0.07 Lab Interpretation (test code = 72239-1) Abnormal [facility] WITH [id number] 10:58:56* Test Item Value Reference Range Interpretation [...] 34.0 g/dL 31.6-35.1 RDW-SD (test code = 30037-9) 46.4 fL 39-49.9 RDW-CV (test code = 788-0) 13.7 % 12-15.5 PLT (test code = 777-3) See_Comment [Automated [employer]] The system which generated this result transmitted reference range: 166 - 358 10*3/?L. The reference range was not used to interpret this result as normal/abnormal. MPV (test code = 67894-6) 11.5 fL 9.5-12.9 NRBC/100 WBC (test code = 8720469194) See_Comment [[email or web address] [email or web address] ssage] The system which generated this result transmitted reference range: 0.0 - 10.0 /100 WBCs. The reference range was not used to interpret this result as normal/abnormal. NRBC x10^3 (test code = 4331181836) See_Comment [Automated RegenaStema ge] The system which generated this result transmitted reference range: 10*3/?L. The reference range was not used to interpret this result as normal/abnormal. GRAN MAT (NEUT) % (test code = 770-8) 69.6 % IMM GRAN % (test code = 9318723826) 0.20 % LYMPH % (test code = 736-9) 22.6 % MONO % (test code = 5905-5) 7.3 % EOS % (test code = 713-8) 0.1 % BASO % (test code = 706-2) 0.2 % GRAN MAT x10^3(ANC) (test code = 1810546687) 8.81 10*3/uL 1.88-7.09 H IMM GRAN x10^3 (test code = 5917051706) 0.03 10*3/uL 0-0.06 LYMPH x10^3 (test code = 731-0) 2.86 10*3/uL 1.32-3.29 MONO x10^3 (test code = 742-7) 0.93 10*3/uL 0.33-0.92 H EOS x10^3 (test code = 711-2) 0.03-0.39 L BASO x10^3 (test code = 704-7) 0.01-0.07 Lab Interpretation (test code = 24645-5) Abnormal [facility]. METABOLIC PANEL ([id number])2022-05-21 01:01:28* Test Item Value Reference Range Interpretation Comme nts NA (test code = 2423249163) 139 mmol/L 135-145 K (test code = 0481694231) 3.6 mmol/L 3.5-5 CL (test code = 6983212595) 106 mmol/L 98-108 CO2 TOTAL (test code = 0314731921) 24 mmol/L 23-31 AGAP (test code = 6579567756) 2-16 BUN (test code = 3569591119) 10 mg/dL 7-23 GLUCOSE (test code = 9748925623) 96 mg/dL 70-110 CREATININE (test code = 2811084182) 0.44 mg/dL 0.5-1.04 L TOTAL BILI (test code = 2071646653) 1.0 mg/dL 0.1-1.1 CALCIUM (test code = 9337522061) 9.0 mg/dL 8.6-10.6 T PROTEIN (test code = 9565039565) 7.8 g/dL 6.3-8.2 ALBUMIN (test code = 2540189123) 4.6 g/dL 3.5-5 ALK PHOS (test code = 6573942032) 81 U/L 34-122 ALTv (test code = 1742-6) 11 U/L 5-35 AST(SGOT) (test code = 6786910772) 17 U/L 13-40 eGFR (test code = 1211229770) mL/min/1.73m2 PARTH (test code = PARTH) Association [...] imaging tests). Lab Interpretation (test code = 12729-8) Abnormal [facility]. METABOLIC PANEL (08487)2022-05-21 01:01:28* Test Item Value Reference Range Interpretation Comme nts NA (test code = 0238969091) 139 mmol/L 135-145 K (test code = 9051187834) 3.6 mmol/L 3.5-5 CL (test code = 1512392177) 106 mmol/L 98-108 CO2 TOTAL (test code = 4303801718) 24 mmol/L 23-31 AGAP (test code = 9685393988) 2-16 BUN (test code = 1417046427) 10 mg/dL 7-23 GLUCOSE (test code = 1314432607) 96 mg/dL 70-110 CREATININE (test code = 3730364578) 0.44 mg/dL 0.5-1.04 L TOTAL BILI (test code = 3459425012) 1.0 mg/dL 0.1-1.1 CALCIUM (test code = 1803788937) 9.0 mg/dL 8.6-10.6 T PROTEIN (test code = 9115143330) 7.8 g/dL 6.3-8.2 ALBUMIN (test code = 5120106132) 4.6 g/dL 3.5-5 ALK PHOS (test code = 9966464755) 81 U/L 34-122 ALTv (test code = 1742-6) 11 U/L 5-35 AST(SGOT) (test code = 7808011700) 17 U/L 13-40 eGFR (test code = 5792300496) mL/min/1.73m2 PRATH (test code = PARTH) Association of Glomerular [...] imaging tests). Lab Interpretation (test code = 99602-3) Abnormal [facility] WITH [id number] 00:51:27* Test Item Value Reference Range Interpretation Comme nts WBC (test code = 6690-2) See_Comment H [Automated eDossea] The system which generated this result transmitted [...] 33.3 g/dL 31.6-35.1 RDW-SD (test code = 01617-9) 45.4 fL 39-49.9 RDW-CV (test code = 788-0) 13.3 % 12-15.5 PLT (test code = 777-3) See_Comment [Automated RegenaStema ge] The system which generated this result transmitted reference range: 166 - 358 10*3/?L. The reference range was not used to interpret this result as normal/abnormal. MPV (test code = 58616-6) 10.5 fL 9.5-12.9 NRBC/100 WBC (test code = 0463250295) See_Comment [Automated [email or web address] ssage] The system which generated this result transmitted reference range: 0.0 - 10.0 /100 WBCs. The reference range was not used to interpret this result as normal/abnormal. NRBC x10^3 (test code = 6234002280) See_Comment [Automated RegenaStema ge] The system which generated this result transmitted reference range: 10*3/?L. The reference range was not used to interpret this result as normal/abnormal. GRAN MAT (NEUT) % (test code = 770-8) 67.4 % IMM GRAN % (test code = 0183045452) 0.30 % LYMPH % (test code = 736-9) 24.5 % MONO % (test code = 5905-5) 7.2 % EOS % (test code = 713-8) 0.3 % BASO % (test code = 706-2) 0.3 % GRAN MAT x10^3(ANC) (test code = 7591833241) 8.19 10*3/uL 1.88-7.09 H IMM GRAN x10^3 (test code = 3778351251) 0.04 10*3/uL 0-0.06 LYMPH x10^3 (test code = 731-0) 2.98 10*3/uL 1.32-3.29 MONO x10^3 (test code = 742-7) 0.88 10*3/uL 0.33-0.92 EOS x10^3 (test code = 711-2) 0.04 10*3/uL 0.03-0.39 BASO x10^3 (test code = 704-7) 0.04 10*3/uL 0.01-0.07 Lab Interpretation (test code = 69001-9) Abnormal [facility] WITH [id number] 00:51:27* Test Item Value Reference Range Interpretation [...] 33.3 g/dL 31.6-35.1 RDW-SD (test code = 84563-3) 45.4 fL 39-49.9 RDW-CV (test code = 788-0) 13.3 % 12-15.5 PLT (test code = 777-3) See_Comment [Automated messa ge] The system which generated this result transmitted reference range: 166 - 358 10*3/?L. The reference range was not used to interpret this result as normal/abnormal. MPV (test code = 84375-7) 10.5 fL 9.5-12.9 NRBC/100 WBC (test code = 6071822792) See_Comment [Automated [email or web address] ssage] The system which generated this result transmitted reference range: 0.0 - 10.0 /100 WBCs. The reference range was not used to interpret this result as normal/abnormal. NRBC x10^3 (test code = 2330669898) See_Comment [Automated messa ge] The system which generated this result transmitted reference range: 10*3/?L. The reference range was not used to interpret this result as normal/abnormal. GRAN MAT (NEUT) % (test code = 770-8) 67.4 % IMM GRAN % (test code = 0995263800) 0.30 % LYMPH % (test code = 736-9) 24.5 % MONO % (test code = 5905-5) 7.2 % EOS % (test code = 713-8) 0.3 % BASO % (test code = 706-2) 0.3 % GRAN MAT x10^3(ANC) (test code = 2782637013) 8.19 10*3/uL 1.88-7.09 H IMM GRAN x10^3 (test code = 2858411660) 0.04 10*3/uL 0-0.06 LYMPH x10^3 (test code = 731-0) 2.98 10*3/uL 1.32-3.29 MONO x10^3 (test code = 742-7) 0.88 10*3/uL 0.33-0.92 EOS x10^3 (test code = 711-2) 0.04 10*3/uL 0.03-0.39 BASO x10^3 (test code = 704-7) 0.04 10*3/uL 0.01-0.07 Lab Interpretation (test code = 68731-4) Abnormal [facility] TEST, THINPREP, [id number] 00:00:00 * Test Item Value Reference Range Interpretation Comme nts SOURCE: (test code = 8001) Cervical/Endocervical SLIDES: (test code = 8011) 1 LMP: (test code = 8021) 03/26/2019 SPECIMEN ADEQUACY: (test code = 71234) (NOTE) INTERPRETATION: (test code = 37876) NILM/NO EPITH. ABNORMALITY;SEE BELOW OTHER COMMENTS: (test code = 8081) (NOTE) TRANSPLANT SURGEON: (test code = 8101) Janet GrajedaCT(ASCP) QC TECHNOLOGIST: (test code = 8111) Gabrielle YunSCT(ASCP)CT(IA C) LOCATION: (test code = 99396) (NOTE) CPT: (test code = 8140) (NOTE) CT/NG, TMA, THINPREP [ADDED]2019-05-04 00:00:00* Test Item Value Reference Range Interpretation Comme nts GONORRHEA, TMA (test code = 52427) NEGATIVE CHLAMYDIA, TMA (test code = 84759) NEGATIVE VAGINAL PATHOGENS DNA [id number] 00:00:00* Test Item Value Reference Range Interpretation Comme nts PRASANNA SPECIES (test code = 74617) NEGATIVE G. VAGINALIS (test code = 83988) NEGATIVE T. VAGINALIS (test code = 39503) POSITIVE CBC W/AUTO [id number] 00:00:00* Test Item Value Reference Range Interpretation [...] 362 K/UL HPV HIGH RISK WITH GENOTYPE, [id number] 00:00:00* Test Item Value Reference Range Interpretation Comme nts HPV HIGH RISK INTERP (test c ode = 72845) NEGATIVE HPV 16 (test code = 84016) NEGATIVE HPV 18 (test code = 43773) NEGATIVE HPV, HR, OTHER GENOTYPES (te st code = 54275) NEGATIVE LIPID [id number] 00:00:00* Test Item Value Reference Range Interpretation Comme nts CHOLESTEROL (test code = 2210) 221 MG/DL TRIGLYCERIDES (test code = 2232) 106 MG/DL HDL CHOLESTEROL (test code = 2220) 40 MG/DL CALC LDL CHOL (test code = 2237) 160 MG/DL RISK RATIO LDL/HDL (test cod e = 2238) 4.00 RATIO HEMOGLOBIN [id number] 00:00:00* Test Item Value Reference Range Interpretation Comme nts HEMOGLOBIN A1c (test code = 72869) 5.9 % COMPREHENSIVE METABOLIC [id number] 00:00:00* Test Item Value Reference Range Interpretation Comme nts GLUCOSE (test code = 2217) 100 MG/DL BUN (test code = 2208) 10 MG/DL CREATININE (test code = 2214) 0.56 MG/DL eGFR AMER. (test cod e = 08149) 137 ML/MIN/1.73 eGFR NON- AMER. (test code = 89990) 118 ML/MIN/1.73 CALC BUN/CREAT (test code = [...] ALT (test code = 2219) 26 U/L [id number] 00:00:00* Test Item Value Reference Range Interpretation [facility] TSH, THIRD GENERATION (test code = 2821) [...] 12:28:00* Test Item Value Reference Range Interpretation [facility] BNP (test code = OBNP) <15 pg/mL 0-50 CT PE PROTOCOL *OW*2018-12-04 12:10:41CLINICAL HISTORY: Chest pain.LOCATION: D4.FINDINGS: Following the administration of 95 mL [id number] intravenouscontrast, multislice axial images are obtained through [...] 05:31:13CT abdomen and pelvis with contrastLocation Code: A62GFPPKYMP HISTORY: [id number]: Lower abdominal teetee nCOMPARISON: NoneTechnique: Helical CT [...] % 0.0-10.0 XR CHEST 2 VIEW *OW*2018-10-12 07:25:13L34HHMS: XR CHEST 2 VIEW *OW*HISTORY: [id number]: CoughCOMPARISON: 12/23/18FINDINGS: The lungs are clear. No pleural effusion [...] = GMID%) 10.3 % 0.0-10.0 H THROAT [id number] 07:45:00* Test Item Value Reference Range Interpretation [...] 14:39:21PA and lateral chest, 2 viewsLocation code: [id number] HISTORY: Chest painCOMPARISON: NoneCOMMENTS:The lungs are clear and well inflated. The costophrenic angles aresharp. The cardiomediastinal silhouette is unremarkable. The bones are intact.IMPRESSION: No acute abnormality"
[2024-08-23] MEDS ORDERED: NA CHLORIDE 0.9% 1,000 ML ONE (09:19)
[2024-08-23] MEDS ORDERED: METOCLOPRAMIDE 10 MG/2mL INJ ONE (09:19)
[2024-08-23] MEDS ORDERED: dexAMETHasone 10 MG/ML VIAL ONE (09:19)
[2024-08-23] MEDS ORDERED: KETOROLAC 30 MG/ML INJ ONE (09:19)
[2024-08-23] MEDS ORDERED: PROMETHAZINE INJ 25 MG/ML AMP ONE (10:30)
[2024-08-23] MEDS ORDERED: FENTANYL CITR 100 MCG/2 ML ONE (10:50)
--- NOTE | 2024-08-23 12:01 | EDPHYS ---
Physician Documentation [facility] Name: Serenity Collins Age: 44 yrs Sex: Female : 1980 Arrival Date: 08/23/2024 Time: 09:02 Bed 5 Private MD: ED Physician Ramu Choi HPI: 08/23 09:16 This 44 yrs old Female presents to ER via Ambulatory with complaints of Headache. rn 09:16 The patient complains of pain to the top of head and forehead. The patient describes rn the headache as aching. Onset: The symptoms/episode began/occurred this morning. Associated signs and symptoms: Pertinent positives: nausea, Pertinent negatives: altered mental status, dizziness, fever, neck stiffness, rash, vision changes, vision loss, vertigo. Severity of symptoms: At its worst the pain was moderate, "similar to past headaches", in the emergency department the pain is unchanged. The symptoms are alleviated by nothing. the symptoms are aggravated by nothing. The patient has experienced similar episodes in the past. Patient reports headache that began this morning at around 2 in the morning. No trauma. No fever. No neck stiffness. Patient reports identical to previous headaches and migraines that she comes to the emergency room for often. 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 Has had imaging before. Patient reports this feels identical to previous headaches just did not have anything at home to control the pain. No focal neurological deficits.. 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 - Infectious Disease History:: Denies. - Family history:: not pertinent. - Hospitalizations: : No recent hospitalization is reported. - Social history:: Smoking status: Patient denies any tobacco usage or history of. ROS: 09:16 Constitutional: Negative for fever, chills, and weight loss, Neck: Negative for injury, rn pain, and swelling, Cardiovascular: Negative for chest pain, palpitations, and edema, Respiratory: Negative for shortness of breath, cough, wheezing, and pleuritic chest pain, Abdomen/GI: Positive for nausea MS/Extremity: Negative for injury and deformity, Neuro: Positive for headache, negative for focal weakness or numbness, negative for seizure Exam: 09:16 Constitutional: This is a well developed, well nourished patient who is awake, alert, rn and in no acute distress. Head/Face: Normocephalic, atraumatic. Eyes: Pupils equal round and reactive to light, extra-ocular motions intact. Cardiovascular: Regular rate and rhythm. No pulse deficits. Respiratory: Speaking full sentences, unlabored. Skin: No rash MS/ Extremity: Pulses equal, no cyanosis. Neurovascular intact. Full, normal range of motion. Equal circumference. Neuro: Awake and alert, GCS 15, oriented to person, place, time, and situation. Cranial nerves II-XII grossly intact. Motor strength 5/5 in all extremities. Sensory grossly intact. Cerebellar exam normal. Normal gait. Vital Signs: 09:17 BP 128 / 92; Pulse 82; Resp 16; Pulse Ox 98% on R/A; Weight 67.13 kg; Height 5 ft. 2 iw in. ; Pain 9/10; 09:28 BP 107 / 83; Pulse 101; Resp 18; Pulse Ox 99% on R/A; ld1 12:06 BP 114 / 68; Pulse 68; Resp 16; Temp 98; Pulse Ox 99% on R/A; Pain 5/10; ll1 09:17 Body Mass Index 27.07 (67.13 kg, 157.48 cm) iw 09:17 Pain Scale: Adult iw 12:06 Pain Scale: Adult ll1 [place] Coma Score: 12:00 Eye Response: spontaneous(4). Motor Response: obeys commands(6). Verbal Response: rn oriented(5). Total: 15. MDM: 09:08 Medical Screening Exam initiated rn 12:00 Differential diagnosis: migraine, vasomotor headache. Data reviewed: vital signs, rn nurses notes, old medical records, and as a result, I will discharge patient. Counseling: I had a detailed discussion with the patient and/or guardian regarding the historical points, exam findings, and any diagnostic results supporting the discharge/admit diagnosis, the need for outpatient follow up, to return to the emergency department if symptoms worsen or persist or if there are any questions or concerns that arise at home. Response to treatment: the patient's symptoms have markedly improved after treatment, and as a result, I will discharge patient. Special discussion: I discussed with the patient/guardian in detail that at this point there is no indication for admission to the hospital. It is understood, however, that if the symptoms persist or worsen the patient needs to return immediately for re-evaluation. ED course: Patient feels much better, able to rest comfortably, states ready to go home. Will discharge home with return precautions. Has follow-up with neurology and rheumatology as well.. 08/23 09:16 Order name: IV Start; Complete Time: 09:27 rn Administered Medications: 09:28 Drug: Decadron - Dexamethasone IVP 10 mg IVP once Route: IVP; Site: right antecubital; ld1 10:42 Follow up: Response: No adverse reaction ll1 09:28 Drug: metoCLOPramide IVP 10 mg IVP once; over 1 to 2 minutes Route: IVP; Site: right ld1 antecubital; 10:42 Follow up: Response: No adverse reaction ll1 09:28 Drug: NS 0.9% IV 1000 ml IV at 1000 ml once; to be given as a bolus over 60 minutes ld1 Route: IV; Rate: 1000 ml; Site: right antecubital; 11:36 Follow up: Response: No adverse reaction; IV Status: Completed infusion; IV Intake: ll1 1000ml 09:28 Drug: Ketorolac IVP 15 mg IVP once Route: IVP; Site: right antecubital; ld1 10:42 Follow up: Response: No adverse reaction ll1 10:35 Drug: Promethazine IVP 12.5 mg IVP once Route: IVP; Site: right antecubital; ll1 10:58 Follow up: Response: No adverse reaction; Nausea is decreased; RASS: Alert and Calm (0) ll1 10:58 Drug: fentaNYL (PF) IVP 50 mcg IVP once {Note: pain 9/10 RASS 0.} Route: IVP; Site: ll1 right antecubital; 11:36 Follow up: Response: No adverse reaction; Pain is decreased; RASS: Drowsy (-1) ll1 Disposition Summary: 08/23/24 12:01 Discharge Ordered Notes: Location: Home rn Problem: chronic rn Symptoms: have improved rn Condition: Stable rn Diagnosis - Headache rn Followup: rn - With: Private Physician - When: As needed - Reason: Recheck today's complaints, Re-evaluation by your physician Discharge Instructions: - Discharge Summary Sheet rn - Migraine Headache rn Forms: - Medication Reconciliation Form rn - Antibiotic rn telemetry - Prescription Opioid Use rn - Patient Portal Instructions rn - Leadership Thank You Letter rn Signatures: Ramu Choi MD MD rn Lewis, Lynsay, RN RN ll1 Jaqueline Ross RN RN ld1
--- NOTE | 2024-08-23 12:01 | ER ---
Nurse's Notes [facility] Name: Serenity Collins Age: 44 yrs Sex: Female : 1980 Arrival Date: 08/23/2024 Time: 09:02 Bed 5 Private MD: Diagnosis: Headache Presentation: 08/23 09:14 Chief complaint: Patient states: chronic migraine. Coronavirus screen: At this time, iw the client does not indicate any symptoms associated with coronavirus-19. Ebola Screen: No symptoms or risks identified at this time. Initial Sepsis Screen: Does the patient meet any 2 criteria? No. Patient's initial sepsis screen is negative. Does the patient have a suspected source of infection? No. Patient's initial sepsis screen is negative. Risk Assessment: Do you want to hurt yourself or someone else? Patient reports no desire to harm self or others. 09:14 Method Of Arrival: Ambulatory iw 09:14 Acuity: MARY 3 iw 09:18 Onset of symptoms was August 23, 2024. iw Triage Assessment: 12:08 Headache History: The patient has had previous headaches and this one is similar to ll1 previous episodes. General: Appears uncomfortable, Behavior is calm, cooperative, appropriate for age. Pain: Pain currently is 5 out of 10 on a pain scale. Also complains of nausea. Pain: Complains of pain in head Quality of pain is described as aching. 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 - Infectious Disease History:: Denies. - Family history:: not pertinent. - Hospitalizations: : No recent hospitalization is reported. - Social history:: Smoking status: Patient denies any tobacco usage or history of. Screenin:22 [facility] ED Fall Risk Assessment (Adult) History of falling in the last 3 months, ll1 including since admission No falls in past 3 months (0 pts) Confusion or Disorientation No (0 pts) Intoxicated or Sedated No (0 pts) Impaired Gait No (0 pts) Mobility Assist Device Used No (0 pt) Altered Elimination No (0 pt) Score/Fall Risk Level 0 - 2 = Low Risk Maintained a safe environment, Hourly rounding (assess needs \T\ fall precautionary measures) done. Abuse screen: Denies threats or abuse. Nutritional screening: No deficits noted. Tuberculosis screening: No symptoms or risk factors identified. Assessment: 09:21 General: Appears uncomfortable, Behavior is calm, cooperative, appropriate for age. ll1 Pain: Complains of pain in head Quality of pain is described as aching, throbbing, Pain began 2 AM. Neuro: Reports headache. GI: Reports nausea. 09:28 GI: Pt is actively vomiting undigested food. ld1 09:38 Reassessment: No changes from previously documented assessment. Patient and/or family ll1 updated on plan of care and expected duration. Pain level reassessed. Patient is alert, oriented x 3, equal unlabored respirations, skin warm/dry/pink. still nauseated. 10:35 Reassessment: No changes from previously documented assessment. Patient and/or family ll1 updated on plan of care and expected duration. Pain level reassessed. 10:59 Reassessment: No changes from previously documented assessment. Patient and/or family ll1 updated on plan of care and expected duration. Pain level reassessed. Patient is alert, oriented x 3, equal unlabored respirations, skin warm/dry/pink. 11:36 Reassessment: No changes from previously documented assessment. Patient and/or family ll1 updated on plan of care and expected duration. Pain level reassessed. Patient states feeling better. Patient states symptoms have improved. 12:08 Reassessment: No changes from previously documented assessment. Patient and/or family ll1 updated on plan of care and expected duration. Pain level reassessed. Patient is alert, oriented x 3, equal unlabored respirations, skin warm/dry/pink. Vital Signs: 09:17 BP 128 / 92; Pulse 82; Resp 16; Pulse Ox 98% on R/A; Weight 67.13 kg; Height 5 ft. 2 iw in. ; Pain 9/10; 09:28 BP 107 / 83; Pulse 101; Resp 18; Pulse Ox 99% on R/A; ld1 12:06 BP 114 / 68; Pulse 68; Resp 16; Temp 98; Pulse Ox 99% on R/A; Pain 5/10; ll1 09:17 Body Mass Index 27.07 (67.13 kg, 157.48 cm) iw 09:17 Pain Scale: Adult iw 12:06 Pain Scale: Adult ll1 [place] Coma Score: 12:00 Eye Response: spontaneous(4). Motor Response: obeys commands(6). Verbal Response: rn oriented(5). Total: 15. ED Course: 09:08 Patient arrived in ED. sj2 09:08 Ramu Choi MD is Attending Physician. rn 09:14 Triage completed. iw 09:14 Arm band placed on Patient placed in an exam room, on a stretcher. ll1 09:15 Chris Abbott RN is Primary Nurse. ll1 09:21 Missed attempt(s): 22 gauge in right antecubital area. Bleeding controlled, band aid ll1 applied, catheter tip intact. 09:22 Patient has correct armband on for positive identification. Bed in low position. Call ll1 light in reach. Provided Education on: ER procedures and process. Client placed on continuous cardiac and pulse oximetry monitoring. NIBP monitoring applied. 09:28 Inserted saline lock: 22 gauge in right antecubital area, using aseptic technique. ld1 Flushed with 10 mL NS. 09:28 Initial lab(s) drawn, by ED staff, sent to lab. ll1 09:39 Door closed. Noise minimized. Lights dimmed. Warm blanket given. ll1 12:07 IV discontinued, intact, bleeding controlled, No redness/swelling at site. Pressure ll1 dressing applied. 12:08 No provider procedures requiring assistance completed. ll1 Administered Medications: 09:28 Drug: Decadron - Dexamethasone IVP 10 mg IVP once Route: IVP; Site: right antecubital; ld1 10:42 Follow up: Response: No adverse reaction ll1 09:28 Drug: metoCLOPramide IVP 10 mg IVP once; over 1 to 2 minutes Route: IVP; Site: right ld1 antecubital; 10:42 Follow up: Response: No adverse reaction ll1 09:28 Drug: NS 0.9% IV 1000 ml IV at 1000 ml once; to be given as a bolus over 60 minutes ld1 Route: IV; Rate: 1000 ml; Site: right antecubital; 11:36 Follow up: Response: No adverse reaction; IV Status: Completed infusion; IV Intake: ll1 1000ml 09:28 Drug: Ketorolac IVP 15 mg IVP once Route: IVP; Site: right antecubital; ld1 10:42 Follow up: Response: No adverse reaction ll1 10:35 Drug: Promethazine IVP 12.5 mg IVP once Route: IVP; Site: right antecubital; ll1 10:58 Follow up: Response: No adverse reaction; Nausea is decreased; RASS: Alert and Calm (0) ll1 10:58 Drug: fentaNYL (PF) IVP 50 mcg IVP once {Note: pain 9/10 RASS 0.} Route: IVP; Site: ll1 right antecubital; 11:36 Follow up: Response: No adverse reaction; Pain is decreased; RASS: Drowsy (-1) 1 Medication: 09:22 VIS not applicable for this client. ll1 Intake: 11:36 IV: 1000ml; Total: 1000ml. 1 Outcome: 12:01 Discharge ordered by MD. zuniga 12:08 Discharged to home ambulatory, [facility] 12:08 Condition: stable 12:08 Discharge instructions given to patient, Instructed on discharge instructions, follow up and referral plans. Demonstrated understanding of instructions, follow-up care, 12:09 Patient left the ED. 1 Signatures: Yazmin Dover RN RN iw Nieto, Roman, MD MD rn Lewis, Lynsay, RN RN ll1 Jaqueline Ross RN RN ld1 Celine Chang 2 Corrections: (The following items were deleted from the chart) 12:08 12:06 BP 114 / 68; Pulse 68bpm; Resp 16bpm; Pulse Ox 99% RA; Pain 5/10, Adult; ll1 ll1
[2024-08-23 12:15] VITALS: O2SAT 99
[2024-08-23 12:17] VITALS: BP 114/68; TEMP 98
== END 2024-08-23 12:09 | disposition home or self-care (01) ==
LOC: ER 09:02
DX: R51.9 Headache, unspecified (principal)
CPT/HCPCS: 96361; 96374; 96375; 99284; J1100; J2550; J2765; J3010; J7030

== ENCOUNTER 2024-10-21 11:00 | Emergency (ER) | payer MEDICARE ==
--- OUTSIDE RECORDS SUMMARY | 2024-10-21 11:07 | XMS REPORT | Continuity of Care Document ---
Author Name Unknown Address [address] [facility] [address] [place] [address] [facility] [place] Address [address] [facility]. [address] [place] [address] Care Team Providers Care School Program Director Name Role Phone Lawrence BAO, Amberly Primary Care Physician ANTONY JOSHUA Attending Clinician Unavail able JEANETTE PACK Attending Clinician Unavailab LISA Fernandez Attending Clinician Unavailable LISA SUTTON Attending Clinician Unavailable Doctor Unassigned, [place] Attending Clinician U SPEEDY Rojas Attending Clinician Unavailable SPEEDY BYNUM Attending Clinician Unavailable Yumiko Simon RN Attending Clinician Unavailchana Dawson BUYING INTERNDaphnie COATES Attending Clinician + AVRIL LOPEZ Attending Clinician Unavailable Jesus Garay MD Attending Clinician [phone] Avril Lopez MD Attending Clinician [phone] ELIU BARNES Attending Clinician Un available JIMMY CARROLL Attending Clinician Unavailable HUGH SYLVESTER Attending Clinician Unavailable HUGH SYLVESTER Attending Clinician Unavailable ZEV VILLA Attending Clinician Unavailable Eliu Barnes MD Attending Clinician Pcp-Lab Attending Clinician Unavailable Daphnie Dawson LCSW Attending Clinician U LEN Duncan Attending Clinician Unavailable Len June MD Attending Clinician + [phone] NILA JOVEL Attending Clinician Unavailable SHEA SEBASTIAN Attending Clinician Unavailable SHEA SEBASTIAN Attending Clinician Unavailable Zev Villa DO Attending Clinician [phone] Rasta LOCATION MAN, Anne Attending Clinician [phone] Pcp-Lab Attending Clinician Unavailable Song Chang MD Attending Clinician [phone] Vtc-Lab Attending Clinician Unavailable SONG CHANG Attending Clinician Unavailable Doctor Unassigned, [place] Attending Clinician U SHANDRA Morin Attending Clinician Unavailable MARINO WILLS Attending Clinician Unavailable Pgy3 Attending Clinician Unavailable Marino Wills MD Attending Clinician + [phone] MARCIANO WAYNE Attending Clinician Unavailab Marciano Fairchild MD Attending Clinician [phone] Ryan LOCATION MAN, Felisa Attending Clinician [phone] FELISA DAVIS Attending Clinician Unavailable Jimmy Carroll MD Attending Clinician + [phone] Sharan Benjamin MD Attending Clinician [phone] Katy Hadley RN Attending Clinician Unavailable Simeon Herman Attending Clinician Unavail able SURESH BONILLA Attending Clinician Unavaillui Bonilla DDSSuresh Attending Clinician + [phone] Cristy Burden Attending Clinician [phone] Peggy Benitez LVN Attending Clinician + [phone] Chau Carver DDS Attending Clinician + [phone] CHAU CARVER Attending Clinician Unavailab zen Joshua MD, Antony Leach Attending Clinician [phone] Arianna Locke MD Attending Clinician +[phone] Otis Holloway MD Attending Clinician [phone] OTIS HOLLOWAY Attending Clinician Unavailable Only, Adc Test Attending Clinician Unavailable Carmine ALMANZAR, Melanie Downing Attending Clinician [phone] BENTLEY BEARDEN Attending Clinician Unavailable Eliz Cantu MD Attending Clinician [phone] Jammie TAY, Shawn Attending Clinician +[phone] SHAWN AGUDELO Attending Clinician Unavaillui Gonzalez MD, Theodora Attending Clinician [phone] SENA JONES Attending Clinician Unavailable Karen LOCATION MAN, Sena Attending Clinician [phone] Delmis VILLAFUERTE Alejandro Attending Clinician [phone] Unknown, Attending Attending Clinician Unavailab le UNKNOWN, ATTENDING Attending Clinician Unavailab SON Pulido Attending Clinician Unajeremiah Shane BUILDING ESTIMATOR, Montse Mccormack Attending Clinician Unaary De León_Cleopatra Attending Clinician Unavailable Jody Blanco MD Attending Clinician [phone] Bentley Bearden DDS Attending Clinician [phone] EMILY RIVERA Attending Clinician Unavailable Emily Rivera MD Attending Clinician [phone] Only, [facility] Test Attending Clinician Unavailable SABINO DUMONT Attending Clinician Unavaillui Dumont MD, Sabino Williamson Attending Clinician + [phone] FRANKLYN CASTILLO Attending Clinician Unavailable Pgy2 Attending Clinician Unavailable Franklyn Castillo MD Attending Clinician [phone] Tru TAY, Jack Attending Clinician [phone] Alma Rosa Sethi MD Attending Clinician + Soila GORE, Catalina Attending Clinician +[phone] Pcp, Patient Does Not Have A Attending Clinician Curt Koehler Attending Clinician +[phone] Curt KEMP Attending Clinician Unavailable DR ZEV PAEZ Attending Clinician Unavailable DR KEYUR PUENTE Attending Clinician Unavaila ayden HUNT, DR MARKELL Madison Attending Clinician UnaDR PAULINE read BA Attending Clinician Unavailable DR MELANIE LAI Attending Clinician Unavaila ayden LAWRENCE DR LEACH Attending Clinician Unavailable DR DARÍO CHAMBERS Attending Clinician ANTONY Miller Admitting Clinician Unavail able MARCIANO WAYNE Admitting Clinician UnavailFELISA Tijerina Admitting Clinician Unavailable SURESH BONILLA Admitting Clinician Unavaillui Bonilla DDS, Suresh Hemphill Admitting Clinician + [phone] Nohemy TAY, Antony Leach Admitting Clinician +[phone] SENA JONES Admitting Clinician Unavailable Leonid Admitting Clinician Unavailable EMILY RIVERA Admitting Clinician Unavailable Miguel TAY, Emily Mccormack Admitting Clinician [phone] SABINO DUMONT Admitting Clinician Unavaillui WILLS, MARINO Davila Admitting Clinician Unavailable Johann TAY, Marino Davila Admitting Clinician +[phone] JEANNINE, DR WHATLEY Admitting Clinician Unavailable CINDI, DR KEYUR Elias Admitting Clinician Unavailchana HUNT, DR MARKELL Madison Admitting Clinician Gisele hernandez BA, DR CARPENTER Admitting Clinician Unavailable MING, DR MELANIE Downing Admitting Clinician Unavailchana LAWRENCE, DR LEACH Admitting Clinician Unavailable TRISH, DR DARÍO Newton Admitting Clinician Tiffany dumas Payers Payer Name Policy Type Policy Number Effective Date Expirati on Date Source [facility] CASEBOOK [id number] 2021 00:00:00 2022 00:00:00 [facility] [id number] 2023 00:00:00 [facility] [id number] 2022 00:00:00 [facility] [id number] 2022 00:00:00 [facility] [id number] 2021 00:00:00 2021 00:00:00 Problems Condition Name Condition Details Condition Category Status Onset Date Resolution Date Last Treatment Date Treating Clinician Comments Source 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 S/P hysterecto my S/P hysterecto my Disease Active 6-09 00:00: 00 [facility] Abnormal uterine bleeding (AUB) Abnormal uterine bleeding (AUB) Disease Active 4-14 00:00: 00 Overview: Formattin g of this note might be different from the original. Added automatic ally from request for surgery [id number] [facility] Chronic pelvic pain in female Chronic pelvic pain in female Disease Active 4-14 00:00: 00 Overview: Formattin g of this note might be different from the original. Added automatic ally from request for surgery [id number] [facility] Hydrosalpi nx Hydrosalpi nx Disease Active 11-12 00:00: 00 [facility] Generalize d anxiety disorder Generalize d anxiety disorder Disease Active 11-12 00:00: 00 [facility] Bipolar disorder in full remission, most recent episode unspecifie d type Bipolar disorder in full remission, most recent episode unspecifie d type Disease Active 11-12 00:00: 00 [facility] Abdominal pain Abdominal pain Disease Active 2-23 00:00: 00 [facility] Allergies, Adverse Reactions, Alerts Allergy Name Allergy Type Status Severity Reaction(s) Onset Date Inactive Date Treating Clinician Comments Source HYDROCOD ONE-ACET AMINOPHE N DRUG Active ITCHING 2021-08 0-04 00:00: 00 [facility] Hydrocod one-Acet aminophe n Propensi ty to adverse reaction s Active Itching 2021-08 0- 00:00: 00 [facility] Quetiapi ne Drug Intolera nce Active Other - See comments 01-21 00:00: 00 Made pt. Get really mad [facility] Shellfis h Derived Propensi ty to adverse reaction s Active Nausea and/or Vomiting 01-21 00:00: 00 [facility] QUETIAPI NE DRUG INGREDI Active High Other-Cmnt 6 00:00: 00 [facility] SHELLFIS H DERIVED DRUG INGREDI Active High ITCHING 01-21 00:00: 00 [facility] Joe Propensi ty to adverse reaction s Active Anaphylaxis 11-22 00:00: 00 [facility] JOE DRUG INGREDI Active Anaphylaxis 11-22 00:00: 00 [facility] Codeine Propensi ty to adverse reaction s Active Itching 10-09 00:00: [address] [facility] CODEINE DRUG INGREDI Active ITCHING 2 00:00: 00 [facility] Social History Social Habit Start Date Stop Date Quantity Comments Source [facility] function 2024-03-22 00:00:00 2024-03-22 00:00:00 [facility] Alcohol intake 2023-11-10 00:00:00 2023-11-10 00:00:00 Ex-drinker (finding) [facility] Alcoholic beverage intake 2023-11-10 00:00:00 2023-11-10 00:00:00 Ex-drinker (finding) [facility] Tobacco use and exposure 2023-07-13 00:00:00 2023-07-13 00:00:00 Smokeless tobacco non-user [facility] Exposure to SARS-CoV-2 (event) 2022-10-28 00:00:00 2022-11-07 12:55:00 Not sure [facility] Alcohol Comment 2022-10-15 00:00:00 2022-10-15 00:00:00 stopped 7 weeks ago [facility] History of tobacco use 2022-05-19 00:00:00 Cigarette Smoker [facility] Tobacco Comment 2022-04-07 00:00:00 2022-04-07 00:00:00 Occassionally smokes 1 each [facility] Sex assigned at 1980 00:00:00 1980 00:00:00 [facility] Smoking Status Start Date Stop Date Source Ex-smoker 2023-07-13 00:00:00 2023-07-13 00:00:00 [facility] Occasional tobacco smoker 2022-06-03 00:00:00 [facility] Smokes tobacco daily 2021-11-19 00:00:00 [facility] Medications Ordered Medication Name Filled Medication Name Start Date Stop Date Current Medication? Ordering Clinician Indication Dosage Frequency Signature (SIG) Comments Components Source diclofenac dodium (VOLTAREN ARTHRITIS PAIN) 1 % gel 03-29 00:00: 00 Yes [id number] 2g Apply 2 g to area(s) 4 (four) times daily as needed for Pain. [facility] Capsaicin 0.1 % cream 03-29 00:00: 00 06-28 05:59 :00 No [id number] Apply to area(s) 4 (four) times daily as needed for Pain (scale 4-6) for up to [address] [facility] cyclobenzap rine 10 mg tablet 11-09 00:00: 00 03-29 00:00 :00 No [id number] 10mg Take 1 tablet by mouth in the morning and 1 tablet at noon and 1 tablet in the evening. [facility] amitriptyli ne 10 mg tablet 10-01 00:00: 00 01-29 04:59 :00 No [id number] 10mg Take 1 tablet by mouth at bedtime for [address] [facility] ubrogepant 100 mg Tab 2022-08 00:00: 00 Yes [id number] 100mg Take 1 tablet by mouth as needed for Other (Headache) for up to 64 doses. If symptoms persist or return, may repeat dose after 2 hours. Maximum: [address] mg per [address] [facility] topiramate 25 mg tablet 2022-08 00:00: 00 07-13 05:59 :00 No [id number] Take 1 tablet by mouth 2 (two) times daily for 7 days, THEN 2 tablets 2 (two) times daily for [address] [facility] sumatriptan 100 mg tablet 2022-08 00:00: 00 07-13 00:00 :00 No [id number] 100mg Take 1 tablet by mouth as needed for Migraine (Max of 2 tablets/da y.). [facility] ondansetron (ZOFRAN (PF)) injection 4 mg 11-04 17:45: 00 11-04 17:58 :00 No 4mg 4 mg, Slow IV Push, ONCE, 1 dose, On Thu11/04/22 at 1245, ANTOINETTE [facility] morpHINE (4 mg/mL) injection 4 mg 11-04 17:45: 00 11-04 17:58 :00 No 4mg 4 mg, Slow IV Push, ONCE, 1 dose, On Thu11/04/22 at 1245, STAT [facility] ketorolac (TORADOL) injection 30 mg 11-04 16:15: 00 11-04 15:45 :00 No 30mg 30 mg, Slow IV Push, ONCE, 1 dose, On Thu11/04/22 at 1115, ANTOINETTE [facility] OLANZapine 5 mg tablet 08-18 10:02: 06 08-18 00:00 :00 No 2.5mg Take 2.5 mg by mouth daily. [facility] TAKE 1 TABLET BY MOUTH EVERY 6 HOURS NEEDED 2021-08 00:00: 00 No OLANZapine 5 mg tablet 2021-08 13:28: 48 Yes 2.5mg Take 2.5 mg by mouth daily. [facility] ibuprofen (ADVIL CHILDREN'S) 100 mg/5 mL oral suspension 600 mg 2021-08 01:30: 00 Yes 600mg 600 mg, Oral, Q6H, First dose (after last modificati on) on Thu05/22/22 at 2030, Until Discontinu ed, Routine [facility] acetaminoph en (TYLENOL) 160 mg/5 mL oral liquid 650 mg 2021-08 01:15: 00 Yes 650mg 650 mg, Oral, Q6H, First dose (after last modificati on) on Thu05/22/22 at 2015, Until Discontinu ed, Routine [facility] ibuprofen 600 mg tablet 2021-08 00:00: 00 06-15 00:00 :00 No [id number] 101 600mg Take 1 tablet by mouth every 6 (six) hours as needed for Pain (scale 4-6). [facility] acetaminoph en (TYLENOL) 325 mg tablet 2021-08 00:00: 00 05-24 04:59 :00 No [id number] 101 650mg Take 2 tablets by mouth every 6 (six) hours as needed for Alternate with ibuprofen for pain scale 4-6. [facility] chlorhexidi ne 0.12 % mouthwash 2021-08 00:00: 00 10-15 00:00 :00 No [id number] 101 15mL Swish and spit out 15 mL in the morning and 15 mL in the evening. [facility] amoxicillin -clavulanat e (AUGMENTIN) 875-125 mg per tablet 2021-08 00:00: 00 05-31 04:59 :00 No [id number] 101 1{tbl} Take 1 tablet by mouth in the morning and 1 tablet in the evening. Do all this for [address] [facility] metroNIDAZO LE (FLAGYL) 500 mg tablet 2021-08 00:00: 00 05-31 04:59 :00 No [id number] 101 500mg Take 1 tablet by mouth every 12 (twelve) hours for [address] [facility] morpHINE (2 mg/mL) injection 2 mg 2021-08 18:14: 35 Yes 2mg 2 mg, Slow IV Push, Q4HPRN, Starting on Thu05/21/22 at 1314, Until Discontinu ed, Routine, Pain (scale 7-10) [facility] lactated ringers IV infusion 1,000 mL 2021-08 16:30: 00 Yes 1000mL at 75 mL/hr, 1,000 mL, IV Infusion, CONTINUOUS , Starting on Thu05/21/22 at 1130, Until Discontinu ed, Routine, PACU [facility] lidocaine 2% viscous (LIDOCAINE VISCOUS) 2 % solution 2021-08 005 15:56: 00 05-21 16:27 :27 No PRN, Starting on Thu05/21/22 at 1056, Until Thu05/21/22 at 1127, Routine, Intra-op [facility] chlorhexidi ne (PERIDEX) 0.12 % mouthwash 15 mL 2021-08 0-05 13:00: 00 Yes 15mL 15 mL, Oral (Swish And Spit Out), BID, First dose on Thu05/21/22 at 0800, Until Discontinu ed, Routine [facility] ampicillin- sulbactam (UNASYN) 3 [...]
D uration of Therapy: Other (see Comments) [facility] lactated ringers IV infusion 1,000 mL 2021-08 0-05 03:45: 00 05-21 20:29 :02 No 1000mL at 125 mL/hr, 1,000 mL, IV Infusion, CONTINUOUS , Starting on Thu05/20/22 at 2245, Until Thu05/21/22 at 1529, Routine [facility] ketorolac (TORADOL) injection 15 mg 2021-08 0-05 03:29: 07 Yes 15mg 15 mg, Slow IV Push, Q6HPRN, 4 doses, Starting on Thu05/20/22 at 2229, Until Discontinu ed, Routine, Pain (scale 4-6) [facility] ibuprofen (ADVIL CHILDREN'S) 100 mg/5 mL oral suspension 600 mg 2021-08 0-05 03:28: 25 Yes 600mg 600 mg, Oral, Q6HPRN, Starting on Thu05/20/22 at 2228, Until Discontinu ed, Routine, Pain (scale 1-3) [facility] ondansetron (ZOFRAN (PF)) injection 4 mg 2021-08 0-05 03:28: 21 Yes 4mg 4 mg, Slow IV Push, Q4HPRN, Starting on Thu05/20/22 at 2228, Until Discontinu ed, Routine, Nausea and Vomiting (N/V) [facility] ampicillin- sulbactam (UNASYN) 3 g in NaCl 0.9% (NS) 100 mL MINI-BAG 2021-08 02:00: 00 05-21 03:32 :00 No 3g 3 g, IV Piggyback, ONCE, 1 dose, On Thu05/20/22 at 2100, Administer over 30 Minutes, 100 mL
Reas on for Anti-Infec tive: Documented Infection< br>Documen saw Infection Site: Other
O ther site: dental
Duration of Therapy: [address] [facility] iopamidol (ISOVUE 370-500 mL) injection 70 mL 2021-08 02:00: 00 05-21 02:00 :00 No [id number] 101 70mL 70 mL, Intravenou s, ONCE, 1 dose, On Thu05/20/22 at 2100, Routine [facility] ondansetron (ZOFRAN (PF)) injection 4 mg 2021-08 005 00:15: 00 05-21 01:16 :00 No 4mg 4 mg, Slow IV Push, ONCE, 1 dose, On Thu05/20/22 at 1915, ANTOINETTE [facility] ketorolac (TORADOL) injection 30 mg 2021-08 005 00:00: 00 05-21 01:16 :00 No 30mg 30 mg, Slow IV Push, ONCE, 1 dose, On Thu05/20/22 at 1900, Routine [facility] OLANZapine 5 mg tablet 2021-08 0 23:41: 15 Yes 2.5mg Take 2.5 mg by mouth daily. [facility] amoxicillin -clavulanat e 875-125 mg per tablet 2021-08 0 00:00: 00 Yes [id number] 101 1{tbl} Take 1 tablet by mouth every 12 (twelve) hours. [facility] ibuprofen 800 mg tablet 2021-08 0-04 00:00: 00 Yes [id number] 101 800mg Take 1 tablet by mouth every 6 (six) hours as needed for Pain (scale 4-6). [facility] OLANZapine 5 mg tablet 01-26 04:20: 01 Yes 2.5mg Take 2.5 mg by mouth daily. [facility] acetaminoph en 325 mg tablet 01-24 00:00: 00 05-23 00:00 :00 No [id number] 650mg Take 2 tablets by mouth every 6 (six) hours as needed for Pain (scale 1-3). [facility] ibuprofen 600 mg tablet 01-24 00:00: 00 05-23 00:00 :00 No [id number] 600mg Take 1 tablet by mouth every 6 (six) hours as needed for Pain (scale 4-6). [facility] cyclobenzap rine 5 mg tablet 2020-08 2-14 [...] Name Observation Time Observation Value Comments S matty Systolic blood pressure 2024-08-22 18:55:00 148 mm[Hg] [facility] Diastolic blood pressure 2024-08-22 18:55:00 87 mm[Hg] [facility] Heart rate 2024-08-22 18:45:00 84 /min [facility] Body temperature 2024-08-22 18:45:00 36.44 Xin [facility] Body height 2024-08-22 18:45:00 157.5 cm [facility] Body weight 2024-08-22 18:45:00 67.405 kg [facility] BMI 2024-08-22 18:45:00 27.18 kg/m2 [facility] Oxygen saturation in Arterial blood by Pulse oximetry 2024-08-22 18:45:00 98 /min [facility] Systolic blood pressure 2024-03-29 19:13:00 125 mm[Hg] [facility] Diastolic blood pressure 2024-03-29 19:13:00 78 mm[Hg] [facility] Heart rate 2024-03-29 19:13:00 91 /min [facility] Body temperature 2024-03-29 19:13:00 36.39 Xin [facility] Respiratory rate 2024-03-29 19:13:00 16 /min [facility] Body height 2024-03-29 19:13:00 157.5 cm [facility] Body weight 2024-03-29 19:13:00 66.543 kg [facility] BMI 2024-03-29 19:13:00 26.83 kg/m2 [facility] Oxygen saturation in Arterial blood by Pulse oximetry 2024-03-29 19:13:00 100 /min [facility] Systolic blood pressure 2024-03-22 18:32:00 135 mm[Hg] [facility] Diastolic blood pressure 2024-03-22 18:32:00 91 mm[Hg] [facility] Heart rate 2024-03-22 18:29:00 82 /min [facility] Body temperature 2024-03-22 18:29:00 36.72 Xin [facility] Respiratory rate 2024-03-22 18:29:00 19 /min [facility] Body height 2024-03-22 18:29:00 157.5 cm [facility] Body weight 2024-03-22 18:29:00 65.726 kg [facility] BMI 2024-03-22 18:29:00 26.50 kg/m2 [facility] Oxygen saturation in Arterial blood by Pulse oximetry 2024-03-22 18:29:00 98 /min [facility] Systolic blood pressure 2023-11-10 14:30:00 124 mm[Hg] [facility] Diastolic blood pressure 2023-11-10 14:30:00 80 mm[Hg] [facility] Heart rate 2023-11-10 14:30:00 99 /min [facility] Res[facility] 2023-11-10 14:30:00 12 /min [facility] Body height 2023-11-10 14:30:00 157.5 cm [facility] Body weight 2023-11-10 14:30:00 63.05 kg [facility] BMI 2023-11-10 14:30:00 25.42 kg/m2 [facility] Oxygen saturation in Arterial blood by Pulse oximetry 2023-11-10 14:30:00 96 /min [facility] Systolic blood pressure 2023-11-03 20:42:00 131 mm[Hg] [facility] Diastolic blood pressure 2023-11-03 20:42:00 87 mm[Hg] [facility] Heart rate 2023-11-03 20:42:00 89 /min [facility] Body temperature 2023-11-03 20:42:00 36.11 Xin [facility] Body height 2023-11-03 20:42:00 157.5 cm [facility] Body weight 2023-11-03 20:42:00 63.05 kg [facility] BMI 2023-11-03 20:42:00 25.42 kg/m2 [facility] Oxygen saturation in Arterial blood by Pulse oximetry 2023-11-03 20:42:00 98 /min [facility] Systolic blood pressure 2023-10-01 19:21:00 126 mm[Hg] [facility] Diastolic blood pressure 2023-10-01 19:21:00 84 mm[Hg] [facility] Heart rate 2023-10-01 19:21:00 87 /min [facility] Respiratory rate 2023-10-01 19:21:00 16 /min [facility] Body height 2023-10-01 19:21:00 157.5 cm [facility] Body weight 2023-10-01 19:21:00 65.227 kg [facility] BMI 2023-10-01 19:21:00 26.30 kg/m2 [facility] O[facility] saturation in Arterial blood by Pulse oximetry 2023-10-01 19:21:00 95 /min [facility] Systolic blood pressure 2023-07-13 14:04:00 131 mm[Hg] [facility] Diastolic blood pressure 2023-07-13 14:04:00 84 mm[Hg] [facility] Heart rate 2023-07-13 14:04:00 77 /min [facility] Respiratory rate 2023-07-13 14:04:00 18 /min [facility] Body height 2023-07-13 14:04:00 157.5 cm [facility] Body weight 2023-07-13 14:04:00 64.456 kg [facility] BMI 2023-07-13 14:04:00 25.99 kg/m2 [facility] Oxygen saturation in Arterial blood by Pulse oximetry 2023-07-13 14:04:00 99 /min [facility] Systolic blood pressure 2023-06-15 18:59:00 124 mm[Hg] [facility] Diastolic blood pressure 2023-06-15 18:59:00 79 mm[Hg] [facility] Heart rate 2023-06-15 18:59:00 78 /min [facility] Body height 2023-06-15 18:59:00 157.5 cm [facility] Body weight 2023-06-15 18:59:00 66.044 kg [facility] BMI 2023-06-15 18:59:00 26.63 kg/m2 [facility] Oxygen saturation in Arterial blood by Pulse oximetry 2023-06-15 18:59:00 100 /min [facility] Systolic blood pressure 2022-11-07 18:04:00 144 mm[Hg] [facility] Diastolic blood pressure 2022-11-07 18:04:00 101 mm[Hg] [facility] Heart rate 2022-11-07 17:54:00 82 /min [facility] Body temperature 2022-11-07 17:54:00 36.44 Xin [facility] [place] Respiratory rate 2022-11-07 17:54:00 18 /min [facility] Body height 2022-11-07 17:54:00 157.5 cm [facility] Body weight 2022-11-07 17:54:00 56.836 kg [facility] BMI 2022-11-07 17:54:00 22.92 kg/m2 [facility] Systolic blood pressure 2022-11-04 19:41:00 130 mm[Hg] [facility] Diastolic blood pressure 2022-11-04 19:41:00 75 mm[Hg] [facility] Heart rate 2022-11-04 19:41:00 77 /min [facility] Body temperature 2022-11-04 19:41:00 37 Xin [facility] Respiratory rate 2022-11-04 19:41:00 18 /min [facility] [place] Oxygen saturation in Arterial blood by Pulse oximetry 2022-11-04 19:41:00 100 /min [facility] Body weight 2022-11-04 14:05:00 58.968 kg [facility] BMI 2022-11-04 14:05:00 23.78 kg/m2 [facility] Systolic blood pressure 2022-10-15 20:04:00 111 mm[Hg] [facility] Diastolic blood pressure 2022-10-15 20:04:00 77 mm[Hg] [facility] Heart rate 2022-10-15 20:04:00 70 /min [facility] Body temperature 2022-10-15 20:04:00 36.11 Xin [facility] [place] Respiratory rate 2022-10-15 20:04:00 18 /min [facility] Body height 2022-10-15 20:04:00 157.5 cm [facility] Body weight 2022-10-15 20:04:00 60.328 kg [facility] BMI 2022-10-15 20:04:00 24.33 kg/m2 [facility] Systolic blood pressure 2022-08-18 15:31:00 115 mm[Hg] [facility] Diastolic blood pressure 2022-08-18 15:31:00 78 mm[Hg] [facility] Heart rate 2022-08-18 15:31:00 59 /min [facility] Body temperature 2022-08-18 15:31:00 36.83 Xin [facility] Respiratory rate 2022-08-18 15:31:00 18 /min [facility] Body height 2022-08-18 15:31:00 157.5 cm [facility] Body weight 2022-08-18 15:31:00 58.287 kg [facility] BMI 2022-08-18 15:31:00 23.50 kg/m2 [facility] Oxygen saturation in Arterial blood by Pulse oximetry 2022-08-18 15:31:00 99 /min [facility] Systolic blood pressure 2022-06-03 15:14:00 126 mm[Hg] [facility] Diastolic blood pressure 2022-06-03 15:14:00 81 mm[Hg] [facility] Heart rate 2022-06-03 15:14:00 77 /min [facility] Body temperature 2022-06-03 15:14:00 37.22 Xin [facility] Body height 2022-06-03 15:14:00 157.5 cm [facility] Body weight 2022-06-03 15:14:00 56.246 kg [facility] BMI 2022-06-03 15:14:00 22.68 kg/m2 [facility] Systolic blood pressure 2022-05-23 13:01:00 133 mm[Hg] [facility] Diastolic blood pressure 2022-05-23 13:01:00 89 mm[Hg] [facility] Heart rate 2022-05-23 13:01:00 88 /min [facility] Body temperature 2022-05-23 13:01:00 36.89 Xin [facility] Respiratory rate 2022-05-23 13:01:00 16 /min [facility] Oxygen saturation in Arterial blood by Pulse oximetry 2022-05-23 13:01:00 99 /min [facility] Body weight 2022-05-20 23:15:00 55.792 kg [facility] BMI 2022-05-20 23:15:00 22.50 kg/m2 [facility] Systolic blood pressure 2022-05-21 16:45:00 145 mm[Hg] [facility] Diastolic blood pressure 2022-05-21 16:45:00 83 mm[Hg] [facility] Respiratory rate 2022-05-21 16:45:00 16 /min [facility] Oxygen saturation in Arterial blood by Pulse oximetry 2022-05-21 16:45:00 100 /min [facility] Heart rate 2022-05-21 16:20:00 85 /min [facility] Body temperature 2022-05-21 16:20:00 36.39 Xin [facility] Body weight 2022-05-20 23:15:00 55.792 kg [facility] BMI 2022-05-20 23:15:00 22.50 kg/m2 [facility] Systolic blood pressure 2022-05-08 19:04:00 148 mm[Hg] [facility] Diastolic blood pressure 2022-05-08 19:04:00 89 mm[Hg] [facility] Heart rate 2022-05-08 19:04:00 83 /min [facility] Body temperature 2022-05-08 19:04:00 37.06 Xin [facility] Body height 2022-05-08 19:04:00 157.5 cm [facility] Body weight 2022-05-08 19:04:00 55.656 kg [facility] BMI 2022-05-08 19:04:00 22.44 kg/m2 [facility] Oxygen saturation in Arterial blood by Pulse oximetry 2022-05-08 19:04:00 100 /min [facility] Systolic blood pressure 2022-03-31 16:36:00 126 mm[Hg] [facility] Diastolic blood pressure 2022-03-31 16:36:00 86 mm[Hg] [facility] Heart rate 2022-03-31 16:36:00 76 /min [facility] Body temperature 2022-03-31 16:36:00 36.22 Xin [facility] Respiratory rate 2022-03-31 16:36:00 16 /min [facility] Body height 2022-03-31 16:36:00 157.5 cm [facility] Body weight 2022-03-31 16:36:00 55.702 kg [facility] BMI 2022-03-31 16:36:00 22.46 kg/m2 [facility] BP Systolic 2022-07-14 11:21:00 123 [...] XR CHEST 2 VW 2024-03-29 21:14:[facility]/RESPONSE 2023-11-25 19:42:57 Doctor Unassigned, [place] [facility] C4 COMPLEMENT 2023-11-03 21:35:00 Shea Sebastian [facility] THYROID STIMULATING HORMONE 2023-11-03 21:35:00 Shea Sebastian [facility] URINALYSIS 2023-11-03 21:35:00 Shea Sebastian [facility] VITAMIN D, 25-OH 2023-11-03 21:35:00 [facility]-C[facility]TROMERE B 2023-11-03 21:35:00 Shea Sebastian [facility] ANTI-SSA(RO) 2023-11-03 21:35:00 Shea Sebastian [facility] ANTI-DOUBLE STRANDED DNA 2023-11-03 21:35:00 Giovanni Sebastian [facility] XR CERVICAL SPINE 2 VW 2023-10-01 21:45:25 Mikey Chang [facility] ASSIGNMENT OF BENEFITS 2023-06-15 18:19:46 Docto r Unassigned, [place] [facility] URINALYSIS 2022-11-04 15:50:00 Marciano Wayne [facility] BASIC METABOLIC PANEL (NA, K, CL, CO2, GLUCOSE, BUN, CREATININE, CA) 2022-11-04 15:30:00 Marciano Wayne [facility] CBC WITH DIFF 2022-11-04 15:30:00 Marciano Wayne U [facility] CONSENT/REFUSAL FOR DIAGNOSIS AND TREATMENT 2022-11-04 13:58:51 Doctor Unassigned, [place] [facility] US PELVIS COMPLETE WITH TRANSVAGINAL 2022-10-28 18:57:42 Felisa Davis [facility] CBC WITH DIFF 2022-10-15 21:08:[address] [facility] PATIENT QUESTIONNAIRE 2022-08-18 06:01:00 Doctor Unassigned, [place] [facility] CBC WITH DIFF 2022-05-23 10:24:00 [facility] 2022-05-22 10:42:00 Kennedy Young [facility] INCISION AND DRAINAGE ORAL CAVITY 2022-05-21 15:35:00 Suresh Bonilla [facility] TOOTH EXTRACTION 2022-05-21 15:35:00 Suresh Bonilla [facility] INCISION AND DRAINAGE ORAL CAVITY 2022-05-21 15:35:00 Suresh Bonilla [facility] TOOTH EXTRACTION 2022-05-21 15:35:00 Suresh Bonilla [facility] CBC WITH DIFF 2022-05-21 09:58:00 [facility] 2022-05-21 09:58:00 [facility]AC[facility]MANDIBLE W CONTRAST 2022-05-21 01:00:55 Cristy Lowe [facility] CT MAXILLOFACIAL/MANDIBLE W CONTRAST 2022-05-21 01:00:55 Cristy Lowe [facility] COMP. METABOLIC PANEL (94398) 2022-05-21 00:37:00 Cristy Lowe [facility] CBC WITH DIFF 2022-05-21 00:37:00 Cristy Lowe [facility] COMP. METABOLIC PANEL (97934) 2022-05-21 00:37:00 Cristy Lowe [facility] CBC WITH DIFF 2022-05-21 00:37:00 Cristy Lowe [facility] CONSENT/REFUSAL FOR DIAGNOSIS AND TREATMENT 2022-05-20 23:16:33 Doctor Unassigned, [place] [facility] CONSENT/REFUSAL FOR DIAGNOSIS AND TREATMENT 2022-05-20 23:16:33 Doctor Unassigned, [place] [facility] DISCLOSURE AND CONSENT, MEDICAL AND SURGICAL PROCEDURES 2022-05-08 05:01:00 Doctor Unassigned, [place] [facility] REFERRAL- REQUEST/RESPONSE 2022-04-24 05:01:00 Doctor Unassigned, [place] [facility] Plan of Care Planned Activity Planned Date Details Comments Source Goal Plan of Care Note [code = 21772-3] Goal Plan of Care Note [code = 97461-2] Goal Plan of Care Note [code = 70281-0] Goal Plan of Care Note [code = 45353-7] Goal Plan of Care Note [code = 41171-2] Goal Plan of Care Note [code = 01867-5] Goal Plan of Care Note [code = 36199-8] Goal Plan of Care Note [code = 21610-6] Goal Plan of Care Note [code = 53840-8] Goal Plan of Care Note [code = 81850-3] Goal Plan of Care Note [code = 05541-4] Goal Plan of Care Note [code = 85078-5] Goal Plan of Care Note [code = 28709-8] Goal Plan of Care Note [code = 79253-1] Goal Plan of Care Note [code = 08475-5] Goal Plan of Care Note [code = 25359-9] Goal Plan of Care Note [code = 76503-5] Goal Plan of Care Note [code = 30891-1] Goal Plan of Care Note [code = 78519-8] Goal Plan of Care Note [code = 75680-8] Goal Plan of Care Note [code = 75890-9] Encounters Start Date/Time End Date/Time Encounter Type Admission Type Attending Clinicians Care Facility Care Department Encounter ID Source 2021-12-24 13:43:15 Outpatient ANTONY PACHECO [facility] [employer] 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 2021-12-23 07:21:46 Outpatient ANTONY PACHECO [facility] [employer] [id number] [facility] 2024-11-28 10:00:00 2024-11-28 10:00:00 Outpatient LISA MCDOWELL [facility] [id number] [facility] 2023-11-25 00:00:00 2024-10-01 02:24:10 Orders Only Doctor Unassigned, [place] Doctor Unassigned, [place] [facility] 1.2.840.114 350.1.13.10 4.2.7.2.[id number] [facility] 2024-09-22 09:30:00 2024-09-22 09:30:00 Outpatient [facility] [id number] [facility] 2024-09-07 11:20:00 2024-09-07 11:20:00 Outpatient SPEEDY CARVAJAL CATHY [facility] [id number] [facility] 2024-09-01 09:30:00 2024-09-01 09:30:00 Outpatient R [facility] [id number] [facility] 2024-08-22 00:00:00 2024-08-22 17:36:17 Nurse Triage Yumiko Simon Maegan D [facility] ([facility]) 1.2.840.114 350.1.13.10 4.2.7.2.[id number] [facility] 2024-08-22 00:00:00 2024-08-22 14:36:44 Patient Outreach Daphnie Dawson [facility] 1.2.840.114 350.1.13.10 4.2.7.2.[id number] [facility] 2024-08-22 13:00:00 2024-08-22 13:47:11 Outpatient R AVRIL LOPEZ [facility] [id number] [facility] 2024-08-22 13:00:00 2024-08-22 13:47:11 Office Visit Jesus Garay Ernst [facility] 1.2.840.114 350.1.13.10 4.2.7.2.[id number] [facility] 2024-07-05 13:00:00 2024-07-05 13:00:00 Outpatient R ELIU BARNES [facility] [id number] [facility] 2024-04-21 00:00:00 2024-05-28 18:24:33 Patient Secure Msg Doctor Unassigned, [place] Doctor Unassigned, [place] [facility] ([facility] 1.2.840.114 350.1.13.10 4.2.7.2.[id number] [facility] 2024-04-25 11:15:00 2024-04-25 11:15:00 Outpatient [facility] [id number] [facility] 2024-04-22 15:30:00 2024-04-22 15:30:00 Outpatient R HUGH SYLVESTER ELISHA [facility] [id number] [facility] 2024-04-21 12:30:00 2024-04-21 12:30:00 Outpatient R ZEV VILLA [facility] [id number] [facility] 2024-04-04 00:00:00 2024-04-04 00:00:00 Outpatient R ELIU BARNES [facility] [id number] [facility] 2024-03-29 16:05:23 2024-03-29 23:59:00 Hospital Encounter Eliu Barnes [facility] 1.2.840.114 350.1.13.10 4.2.7.2.[id number] [facility] 2024-03-29 15:45:00 2024-03-29 16:00:00 Outbound Sales Advisor Visit Pcp-Lab Eliu Barnes Pcp-Lab [facility] 1.2840.114 350.1.13.10 4.2.7.2.[id number] [facility] 2024-03-29 14:30:00 2024-03-29 15:31:45 Outpatient R ELIU BARNES [facility] [id number] [facility] 2024-03-29 14:30:00 2024-03-29 15:31:45 [facility] 1.2.840.114 350.1.13.10 4.2.7.2.[id number] [facility] 2024-03-29 00:00:00 2024-03-29 10:15:31 Telephone Jesus Garay [facility] 1.2840.114 350.1.13.10 4.2.7.2.[id number] [facility] 2024-03-23 00:00:00 2024-03-23 11:03:37 Patient Outreach Daphnie Dawson Michelle J [facility] 1..840.114 350.1.13.10 4.2.7.2.[id number] [facility] 2024-03-22 13:40:00 2024-03-22 15:33:34 Outpatient LEN LIANG [facility] [id number] [facility] 2024-03-22 13:40:00 2024-03-22 15:33:34 Office Visit Jesus Garay [facility] 1..840.114 350.1.13.10 4.2.7.2.[id number] [facility] 2024-03-21 08:00:00 2024-03-21 08:00:00 Outpatient NILA STUBBS [facility] [id number] [facility] 2024-02-05 14:15:00 2024-02-05 14:15:00 Outpatient SHEA LEWIS [facility] [id number] [facility] 2024-02-04 15:15:00 2024-02-04 15:15:00 Outpatient SHEA LEWIS [facility] [id number] [facility] 2024-01-12 13:30:00 2024-01-12 13:30:00 Outpatient ZEV JULIEN [facility] [id number] [facility] 2023-12-07 11:00:00 2023-12-07 11:00:00 Outpatient JIMMY NIELSON [facility] [id number] [facility] 2023-11-24 00:00:00 2023-11-24 00:00:00 Telephone Zev Villa [facility] 1..840.114 350.1.13.10 4.2.7.2.[id number] [facility] 2023-11-19 15:30:00 2023-11-19 15:30:00 Outpatient JIMMY NIELSON [facility] [id number] [facility] 2023-11-17 00:00:00 2023-11-17 00:00:00 Outpatient ZEV JULIEN [facility] [id number] [facility] 2023-11-13 00:00:00 2023-11-13 00:00:00 Telephone Bradly [facility] 1.114 350.1.13.10 4.2.7.2.[id number] [facility] 2023-11-10 10:00:00 2023-11-10 10:48:16 Outpatient ZEV JULIEN [facility] [id number] [facility] 2023-11-10 10:00:00 2023-11-10 10:48:16 Office Visit Zev Villa [facility] 1..114 350.1.13.10 4.2.7.2.[id number] [facility] 2023-11-10 00:00:00 2023-11-10 00:00:00 Telephone Zev Villa [facility] AND [facility] 1.0.114 350.1.13.10 4.2.7.2.[id number] [facility] 2023-11-03 16:45:00 2023-11-03 17:00:00 Outbound Sales Advisor Visit Pcp-Shea Garcia [facility] 1.2840.114 350.1.13.10 4.2.7.2.[id number] [facility] 2023-11-03 16:45:00 2023-11-03 16:45:00 Outpatient R SHEA SEBASTIAN [facility] [id number] [facility] 2023-11-03 16:15:00 2023-11-03 16:24:45 Office Visit Shea Sebastian [facility] 1.2.840.114 350.1.13.10 4.2.7.2.[id number] [facility] 2023-10-26 00:00:00 2023-10-26 00:00:00 Telephone Song Chang [facility] 1.2.840.114 350.1.13.10 4.2.7.2.[id number] [facility] 2023-10-01 15:26:42 2023-10-01 23:59:00 Hospital Encounter Song Chang [facility] 1.2.840.114 350.1.13.10 4.2.7.2.[id number] [facility] 2023-10-01 15:00:00 2023-10-01 15:15:00 Outbound Sales Advisor Visit Vtc-Lab Song Chang [facility] 1.2840.114 350.1.13.10 4.2.7.2.[id number] [facility] 2023-10-01 13:45:00 2023-10-01 14:52:53 Outpatient R SONG CHANG [facility] [id number] [facility] 2023-10-01 13:45:00 2023-10-01 14:52:53 Office Visit Song Chang [facility] 1.2.840.114 350.1.13.10 4.2.7.2.[id number] [facility] 2023-07-14 09:00:00 2023-07-14 09:00:00 Outpatient R ANNE LL[facility]OS [facility] [id number] [facility] 2023-07-13 08:00:00 2023-07-13 08:48:11 [id number] 2023-07-13 08:00:00 2023-07-13 08:48:11 [facility] 1.2840.114 350.1.13.10 4.2.7.2.[id number] [facility] 2023-06-15 14:00:00 2023-06-15 14:35:44 [facility] [id number] [facility] 2023-06-15 14:00:00 2023-06-15 14:35:44 [facility] 1.84114 350.1.13.10 4.2.7.2.[id number] [facility] 2023-06-15 00:00:00 2023-06-15 00:00:00 Orders Only Doctor Unassigned, [place] [facility] 1.114 350.1.13.10 4.2.7.2.[id number] [facility] 2023-05-18 14:30:00 2023-05-18 14:30:00 Outpatient R SHANDRA [facility] [id number] [facility] 2023-04-01 00:00:00 2023-04-01 00:00:00 Patient Secure Msg Doctor Unassigned, [place] [facility] 1.114 350.1.13.10 4.2.7.2.[id number] [facility] 2023-03-31 00:00:00 2023-03-31 00:00:00 Patient Secure Msg Doctor Unassigned, [place] [facility] 1.2.840.114 350.1.13.10 4.2.7.2.[id number] [facility] 2022-11-14 00:00:00 2022-11-14 00:00:00 Patient Secure Msg Doctor Unassigned, [place] [facility] RESEARCH AND EVALUATION MANAGER [facility] 1.2840.114 350.1.13.10 4.2.7.2.[id number] [facility] 2022-11-07 13:00:00 2022-11-07 13:54:22 Outpatient R MARINO [facility] [id number] [facility] 2022-11-07 13:00:00 2022-11-07 13:54:22 Office Visit Pgy3 Marino Wills [facility] 1.2840.114 350.1.13.10 4.2.7.2.[id number] [facility] 2022-11-04 09:06:00 2022-11-04 15:02:00 Emergency X MARCIANO WAYNE [facility] ERT [id number] [facility] 2022-11-04 09:06:00 2022-11-04 15:02:00 [facility] 1.2840.114 350.1.13.10 4.2.7.2.[id number] [facility] 2022-11-03 00:00:00 2022-11-03 00:00:00 Telephone Felisa Davis [facility] 1.2840.114 350.1.13.10 4.2.7.2.[id number] [facility] 2022-10-28 13:07:55 2022-10-28 23:59:00 [id number] [facility] 2022-10-28 13:07:55 2022-10-28 23:59:00 Hospital Encounter Ryan [facility] 1.0.114 350.1.13.10 4.2.7.2.[id number] [facility] 2022-10-15 13:30:00 2022-10-15 15:10:01 Outpatient R [facility] [id number] [facility] 2022-10-15 13:30:00 2022-10-15 15:10:01 [facility] 1.0.114 350.1.13.10 4.2.7.2.[id number] [facility] 2022-08-18 11:30:00 2022-08-18 11:45:00 Outbound Sales Advisor Visit Pcp-Lab Jimmy Carroll [facility] 1..114 350.1.13.10 4.2.7.2.[id number] [facility] 2022-08-18 09:40:00 2022-08-18 10:58:45 Outpatient JIMMY [facility] [id number] [facility] 2022-08-18 09:40:00 2022-08-18 10:58:45 Office Visit Sharan Benjamin Samuel E [facility] 1.0.114 350.1.13.10 4.2.7.2.[id number] [facility] 2022-08-18 00:00:00 2022-08-18 00:00:00 Orders Only Doctor Unassigned, [place] [facility] 1.2840.114 350.1.13.10 4.2.7.2.[id number] [facility] 2022-07-22 14:00:34 2022-07-22 14:00:34 Outpatient [facility] [id number] K[address] [place]man 2022-07-18 00:00:00 2022-07-18 00:00:00 Nurse Triage Katy Hadley [facility] 1.840.114 350.1.13.10 4.2.7.2.[id number] [facility] 2022-07-18 00:00:00 2022-07-18 00:00:00 Telephone Ryan [facility] 1.840.114 350.1.13.10 4.2.7.2.[id number] [facility] 2022-07-14 11:05:24 2022-07-14 11:05:24 Outpatient [facility] [id number] 2022-07-14 00:00:00 2022-07-14 00:00:00 Outpatient Visit [id number] 2022-07-01 00:00:00 2022-07-01 00:00:00 Patient Outreach Simeon Skinner 1..840.114 350.1.13.10 4.2.7.2.[id number] [facility] 2022-06-16 00:00:00 2022-06-16 00:00:00 Patient Outreach Simeon Skinner [id number] 350.1.13.10 [id number] [facility] 2022-06-03 10:00:00 2022-06-03 10:23:42 Outpatient R SURESH BONILLA [facility] [id number] [facility] 2022-06-03 10:00:00 2022-06-03 10:23:42 Office Visit Suresh Bonilla [facility] 1..114 350.1.13.10 4.2.7.2.[id number] [facility] 2022-05-26 00:00:00 2022-05-26 00:00:00 Telephone Suresh Bonilla [facility] 1.84.114 350.1.13.10 4.2.7.2.[id number] [facility] 2022-05-20 18:17:00 2022-05-23 13:28:00 Outpatient X SURESH BONILLA [facility] [id number] [facility] 2022-05-20 18:17:00 2022-05-23 13:28:00 Emergency Cristy Lowe Jeffrey [facility] 1..114 350.1.13.10 4.2.7.2.[id number] [facility] 2022-05-23 00:00:00 2022-05-23 00:00:00 Transition of Care Peggy Benitez [facility] 1.84.114 350.1.13.10 4.2.7.2.[id number] [facility] 2022-05-21 10:24:00 2022-05-21 11:48:00 Surgery Suresh Bonilla [facility] 1..114 350.1.13.10 4.2.7.2.[id number] [facility] 2022-05-20 00:00:00 2022-05-20 00:00:00 Telephone Chau Carver [facility] 1.2.840.114 350.1.13.10 4.2.7.2.[id number] [facility] 2022-05-08 14:00:00 2022-05-08 14:30:00 Office Visit Mehul Chau R [facility] 1.2.840.114 350.1.13.10 4.2.7.2.[id number] [facility] 2022-05-08 14:00:00 2022-05-08 14:00:00 Outpatient R CHAU CARVER [facility] [id number] [facility] 2022-05-08 00:00:00 2022-05-08 00:00:00 Orders Only Doctor Unassigned, [place] [facility] 1.2.840.114 350.1.13.10 4.2.7.2.[id number] [facility] 2022-04-29 10:00:00 2022-04-29 10:00:00 Outpatient SURESH [facility]SHALL [facility] [id number] [facility] 2022-04-24 00:00:00 2022-04-24 00:00:00 Orders Only Doctor Unassigned, [place] [facility] 1.2.840.114 350.1.13.10 4.2.7.2.[id number] [facility] 2022-03-31 11:15:00 2022-03-31 11:48:34 Office Visit Felisa Davis [facility] 1.2840.114 350.1.13.10 4.2.7.2.[id number] [facility] 2022-03-31 11:15:00 2022-03-31 11:48:34 Outpatient R FELISA DAVIS [facility] [id number] [facility] 2022-03-31 11:15:00 2022-03-31 11:15:00 Outpatient R FELISA DAVIS [facility] [id number] [facility] 2022-01-25 00:00:00 2022-01-25 00:00:00 Telephone JoshuaAntony [facility] 1.2840.114 350.1.13.10 4.2.7.2.[id number] [facility] 2022-01-23 05:56:00 2022-01-24 16:20:00 Outpatient R ANTONY JOSHUA [facility] [employer] [id number] [facility] 2022-01-23 05:56:00 2022-01-24 16:20:00 Hospital Encounter [facility] 1.0.114 350.1.13.10 4.2.7.2.[id number] [facility] 2022-01-23 07:00:00 2022-01-23 12:15:00 Surgery [facility] 1.2840.114 350.1.13.10 4.2.7.2.[id number] [facility] 2022-01-23 00:00:00 2022-01-23 00:00:00 Orders Only Doctor Unassigned, [place] [facility] 1.0.114 350.1.13.10 4.2.7.2.[id number] [facility] 2022-01-21 00:00:00 2022-01-21 00:00:00 Telephone Pgy3 [facility] 1.0.114 350.1.13.10 4.2.7.2.[id number] [facility] 2022-01-20 00:00:00 2022-01-20 00:00:00 Telephone Arianna Locke [facility] 1.20.114 350.1.13.10 4.2.7.2.[id number] [facility] 2022-01-16 00:00:00 2022-01-16 00:00:00 Patient Secure Msg Holloway [facility] 1.2.840.114 350.1.13.10 4.2.7.2.[id number] [facility] 2022-01-15 07:44:45 2022-01-15 23:59:00 Outpatient Shari HOLLOWAY [facility] [id number] [facility] 2022-01-15 07:43:28 2022-01-15 07:43:28 Outpatient R JEWEL [facility] [id number] [facility] 2022-01-14 08:45:00 2022-01-14 09:00:00 Laboratory Only Only, Adc Test Jewel [facility] 1..840.114 350.1.13.10 4.2.7.2.[id number] [facility] 2022-01-14 08:45:00 2022-01-14 08:45:00 Outpatient ALBERTO [facility] [id number] [facility] 2022-01-10 00:00:00 2022-01-10 00:00:00 Patient Outreach Melanie Lou PLAJOHNATHAN 1.2.840.114 350.1.13.10 4.2.7.2.[id number] [facility] 2021-12-27 13:00:00 2021-12-27 13:00:00 Outpatient BENTLEY [facility] [id number] [facility] 2021-12-27 13:00:00 2021-12-27 13:00:00 [id number] 2021-12-27 09:00:00 2021-12-27 09:00:00 Outpatient R ALBERTO [facility] [id number] [facility] 2021-12-25 10:00:00 2021-12-25 10:29:11 Office Visit [facility] 1.114 350.1.13.10 4.2.7.2.[id number] [facility] 2021-12-25 10:00:00 2021-12-25 10:29:11 Outpatient R JEWEL [facility] [id number] [facility] 2021-12-25 10:00:00 2021-12-25 10:00:00 Outpatient R JEWEL [facility] [id number] [facility] 2021-12-22 00:00:00 2021-12-22 00:00:00 [facility] 1..114 350.1.13.10 4.2.7.2.[id number] [facility] 2021-12-22 00:00:00 2021-12-22 00:00:[address] [facility] 1..114 350.1.13.10 4.2.7.2.[id number] [facility] 2021-12-22 00:00:00 2021-12-22 00:00:00 Case Management [facility] 1..114 350.1.13.10 4.2.7.2.[id number] [facility] 2021-12-18 00:00:00 2021-12-18 00:00:00 Patient Secure Msg Doctor Unassigned, [place] [facility] 1..114 350.1.13.10 4.2.7.2.[id number] [facility] 2021-12-11 15:30:00 2021-12-11 15:30:00 Outpatient ANTONY PACHECO [facility] [employer] [id number] [facility] 2021-12-09 10:45:00 2021-12-09 11:00:00 Laboratory Only Only, Adc Test Shawn Agudelo [facility] 1.2.840.114 350.1.13.10 4.2.7.2.[id number] [facility] 2021-12-09 10:45:00 2021-12-09 10:45:00 Outpatient [facility]N [facility] [id number] [facility] 2021-12-09 10:45:00 2021-12-09 10:45:00 Outpatient Shari AGUDELO [facility] [id number] [facility] 2021-12-09 00:00:00 2021-12-09 00:00:00 Telephone Theodora Gonzalez [facility] 1.840.114 350.1.13.10 4.2.7.2.[id number] [facility] 2021-12-06 15:32:00 2021-12-06 17:11:00 Emergency X SENA JONES [facility] ERT [id number] [facility] 2021-12-06 15:32:00 2021-12-06 17:11:00 Emergency KarenSena melendez [facility] 1.840.114 350.1.13.10 4.2.7.2.[id number] [facility] 2021-12-06 15:32:00 2021-12-06 17:11:00 Emergency X KARENSENA MELENDEZ [facility] ERT [id number] [facility] 2021-12-06 15:32:00 2021-12-06 15:32:00 Emergency X SENA JONES [facility] ERT [id number] [facility] 2021-12-06 13:10:00 2021-12-06 13:40:00 Office Visit DelmisAlejandro Orion, Attending [facility] 1..114 350.1.13.10 4.2.7.2.[id number] [facility] 2021-12-06 13:10:00 2021-12-06 13:10:00 Outpatient R UNKNOWN, ATTENDING [facility] [id number] [facility] 2021-12-06 13:10:00 2021-12-06 13:10:00 Outpatient R UNKNOWN, ATTENDING [facility] [id number] [facility] 2021-12-06 13:10:00 2021-12-06 13:10:00 Outpatient R SON SELBY [facility] [id number] [facility] 2021-12-06 00:00:00 2021-12-06 00:00:00 Case Management Montse Shane [facility] 1.84.114 350.1.13.10 4.2.7.2.[id number] [facility] 2021-12-05 04:22:00 2021-12-05 04:22:00 Outpatient Leonid [facility]HE[facility] [id number] [facility] 2021-12-05 00:00:00 2021-12-05 00:00:00 Case [facility] 1.84.114 350.1.13.10 4.2.7.2.[id number] [facility] 2021-12-05 00:00:00 2021-12-05 00:00:00 Telephone Jody Blanco [facility] 1..114 350.1.13.10 4.2.7.2.[id number] [facility] 2021-11-29 13:00:00 2021-11-29 13:00:00 Outpatient R [facility] [id number] [facility] 2021-11-28 00:00:00 2021-11-28 00:00:00 Prep For Surgery Kennethpolazachariah Jody [facility] 1.2.840.114 350.1.13.10 4.2.7.2.[id number] [facility] 2021-11-28 00:00:00 2021-11-28 00:00:00 [facility] 1.2840.114 350.1.13.10 4.2.7.2.[id number] [facility] 2021-11-22 09:07:00 2021-11-22 16:38:00 Outpatient R MIGUEL [facility] [employer] [id number] [facility] 2021-11-22 09:07:00 2021-11-22 16:38:00 Hospital Encounter Miguel [facility] 1.2840.114 350.1.13.10 4.2.7.2.[id number] [facility] 2021-11-22 11:05:00 2021-11-22 13:43:00 Surgery Miguel [facility] 1.2.840.114 350.1.13.10 4.2.7.2.[id number] [facility] 2021-11-22 00:00:00 2021-11-22 00:00:00 [facility] 1.2.840.114 350.1.13.10 4.2.7.2.[id number] [facility] 2021-11-21 13:15:00 2021-11-21 13:18:56 Outpatient R EMILY [facility] [id number] [facility] 2021-11-21 13:15:00 2021-11-21 13:18:56 Laboratory Only Only, [facility] Test Miguel Taya [facility] 1.2.840.114 350.1.13.10 4.2.7.2.[id number] [facility] 2021-11-21 09:00:00 2021-11-21 09:00:00 Outpatient EMILY NAVAS [facility] [id number] [facility] 2021-11-18 11:41:00 2021-11-18 17:07:00 Emergency X SABINO DUMONT [facility] [id number] [facility] 2021-11-18 11:41:00 2021-11-18 17:07:00 Emergency Sabino Dumont [facility] 1.2.840.114 350.1.13.10 4.2.7.2.[id number] [facility] 2021-11-12 13:00:00 2021-11-12 15:18:33 Office Visit Pgy3 Felisa Davis [facility] 1.2.840.114 350.1.13.10 4.2.7.2.[id number] [facility] 2021-11-12 13:00:00 2021-11-12 15:18:33 Outpatient FELISA [facility] [id number] [facility] 2021-11-12 13:00:00 2021-11-12 13:00:00 Outpatient Shari [facility] [id number] [facility] 2021-11-12 13:00:00 2021-11-12 13:00:00 Outpatient FELISA [facility] [id number] [facility] 2021-11-12 00:00:00 2021-11-12 00:00:00 Orders Only Doctor Unassigned, [place] [facility] 1.84.114 350.1.13.10 4.2.7.2.[id number] [facility] 2021-10-29 00:00:00 2021-10-29 00:00:00 Telephone Felisa Davis [facility] 1..114 350.1.13.10 4.2.7.2.[id number] [facility] 2021-10-24 13:15:00 2021-10-24 15:47:39 Outpatient R FRANKLYN [facility] [id number] [facility] 2021-10-24 13:15:00 2021-10-24 15:47:39 Outpatient R FRANKLYN [facility] [id number] [facility] 2021-10-24 13:15:00 2021-10-24 15:47:39 Outpatient R FRANKLYN [facility] [id number] [facility] 2021-10-24 13:15:00 2021-10-24 15:47:39 Office Visit Pgy2 Felisa Davis Otto W [facility] 1.840.114 350.1.13.10 4.2.7.2.[id number] [facility] 2021-10-24 13:15:00 2021-10-24 13:15:00 Outpatient R FRANKLYN [facility] [id number] [facility] 2021-10-24 00:00:00 2021-10-24 00:00:00 Telephone Jack Ott [facility] 1..114 350.1.13.10 4.2.7.2.[id number] [facility] 2021-10-09 13:40:00 2021-10-10 14:24:00 Outpatient X JOHANN, MARINO [facility] [employer] [id number] [facility] 2021-10-09 13:40:00 2021-10-10 14:24:00 Outpatient X JOHANN MARINO [facility] [employer] [id number] [facility] 2021-10-09 13:40:00 2021-10-10 14:24:00 Emergency Neemaleon Alma Rosa Shea Marino Wills [facility] 1.2840.114 350.1.13.10 4.2.7.2.[id number] [facility] 2021-10-10 00:00:00 2021-10-10 00:00:00 Telephone Catalina Cm [facility] 1..840.114 350.1.13.10 4.2.7.2.[id number] [facility] 2021-10-10 00:00:00 2021-10-10 00:00:00 [facility] 1.840.114 350.1.13.10 4.2.7.2.[id number] [facility] 2021-07-15 00:00:00 2021-07-15 00:00:00 Orders Only Doctor Unassigned, [place] [facility] 1.2840.114 350.1.13.10 4.2.7.2.[id number] [facility] 2021-07-02 00:00:00 2021-07-02 00:00:00 Telephone Pcp, Patient Does Not Have A [facility] [place] 1.2.840.114 350.1.13.10 4.2.7.2.[id number] [facility] 2020-02-22 12:29:09 2020-02-22 15:00:00 Emergency Curt Kemp [facility] 1.2.840.114 350.1.13.10 4.2.7.2.[id number] [facility] 2020-02-22 12:29:09 2020-02-22 15:00:00 Emergency Curt Kemp [facility] 1.2.840.114 350.1.13.10 4.2.7.2.686 [id number] 2020-02-22 12:29:09 2020-02-22 12:29:09 Emergency X Curt KEMP [facility] ERT [id number] [facility] 2020-01-30 08:36:00 2020-01-30 08:36:00 Outpatient Lezak_Keithyla [facility] [id number] [facility] 2020-01-28 01:01:00 2020-01-28 01:01:00 Outpatient Lezak_Kayla [facility] [id number] [facility] 2019-12-02 11:44:00 2019-12-02 11:44:00 Outpatient Lezak_Kayla [facility] [id number] [facility] 2019-01-07 10:23:00 2019-01-07 12:27:00 Outpatient E ZEV PAEZ [facility] [id number] [facility] 2018-12-04 10:20:00 2018-12-04 15:57:00 Outpatient E KEYUR PUENTE [facility] [id number] [facility] 2018-11-11 04:05:00 2018-11-11 06:00:00 Outpatient E MARKELL HUNT [facility] [id number] [facility] 2018-10-12 06:24:00 2018-10-12 08:08:00 Outpatient E PAULINE REDDY [facility] [id number] [facility] 2018-09-30 13:45:00 2018-09-30 14:12:00 Outpatient E MELANIE LAI [facility] [id number] [facility] 2018-09-04 17:32:00 2018-09-04 18:30:00 Outpatient E MELANIE LAI [facility] [id number] [facility] 2018-08-19 08:43:00 2018-08-19 10:15:00 Outpatient E HANY LAWRENCE [facility] [id number] [facility] 2018-08-08 13:34:00 2018-08-08 16:43:00 Outpatient E DARÍO CHAMBERS [facility] [id number] [facility] Results Test Description Test Time Test Comments [...] osseous lesions or acute osseous findingsare detected. [facility] REFERRAL- REQUEST/RESPONSE 2023-11-16 0 19:42:57 Ordered by an unspecified provider. [facility] 16:29:12* Test Item Value Reference Range Interpretation Comme nts Anti-Neely (test code = 0646812751) Negative Negative PARTH (test code = PARTH) Positive - Antibod y detected.Negative - No antibody detected. Lab Interpretation (test code = 70385-9) Normal [facility] PasoPfbfcpQyrw-Odxasqoxehczignbx0428-69-20 16:29:12* Test Item Value Reference Range Interpretation Comme nts Anti-Ribonucleoprotein (test code = 8990995576) Negative Negative PARTH (test code = PARTH) Positive - Antibod y detected.Negative - No antibody detected. Lab Interpretation (test code = 23322-3) Normal [facility] PasoAnti-Centromere D4360-75-37 16:29:12* Test Item Value Reference Range Interpretation Comme nts ANTI-CENTR (test code = 7177972022) Negative Negative PARTH (test code = PARTH) Positive - Antibod y detected.Negative - No antibody detected. Lab Interpretation (test code = 96273-8) Normal [facility] PasoAnti-SCL-676180-43-87 16:29:12* Test Item Value Reference Range Interpretation Comme nts ANTI-SCL70 (test code = 9217636918) Negative Negative PARTH (test code = PARTH) Positive - Antibod y detected.Negative - No antibody detected. Lab Interpretation (test code = 26942-4) Normal [facility] Paso[facility]SSA(RO)2023-11-04 16:29:12* Test Item Value Reference Range Interpretation Comme nts ANTI-SSA(RO) (test code = 9554277060) Positive Negative A PARTH (test code = PARTH) Positive - Antibod y detected.Negative - No antibody detected. Lab Interpretation (test code = 44434-4) Abnormal [facility]SSB([place])2023-11-04 16:29:12* Test Item Value Reference Range Interpretation Comme nts Anti-SSB(LA) (test code = 3584897549) Negative Negative PARTH (test code = PARTH) Positive - Antibod y detected.Negative - No antibody detected. Lab Interpretation (test code = 76541-2) Normal [facility] PasoC3 Hashmjlmyq0836-44-50 16:28:24* Test Item Value Reference Range Interpretation Comme nts C3 (test code = 1747068325) 110 mg/dL 86-184 Lab Interpretation (test cod e = 61106-6) Normal [facility] Paso[facility]4 Fslpljqljk2962-51-08 16:28:24* Test Item Value Reference Range Interpretation Comme nts C4 (test code = 3124352665) 19 mg/dL 20-59 L Lab Interpretation (test cod e = 03167-8) Abnormal [facility] PasoThyroid Stimulating Fmkvuef2259-93-70 01:19:27 * Test Item Value Reference Range Interpretation Comme nts TSH (test code = 3890678975) 0.95 0.45-4.70 Biotin has been reported to cause a negative bias, interpret results relative to patient's use of biotin. Lab Interpretation (test code = 28916-3) Normal [facility] PasoVitamin D, 38-BN8174-27-20 00:57:43* Test Item Value Reference Range Interpretation Comme nts VIT D 25OH (test code = 43796-7) 37 ng/mL 25-80 PARTH (test code = PARTH) Deficiency: <20 ng/mLInsufficiency : 20-24 ng/mLOptimal: 25-80 ng/mL Lab Interpretation (test code = 78217-6) Normal [facility] PasoXR CERVICAL SPINE 2 [id number] 22:34:22XR CERVICAL SPINE 2 VW HISTORY: Female 43 years neck pain COMPARISON: None FINDINGS: The vertebral bodies are normal in height and in normal alignment. Theatlantodental space is normal. The prevertebral soft tissues areunremarkable. Diffuse mild degenerative changes, most pronounced at the C6-C7 level. Noacute osseous abnormality.[facility] Paso[facility]I METABOLIC PANEL (NA, K, CL, CO2, GLUCOSE, BUN, CREATININE, CA)2022-11-04 15:48:28* Test Item Value Reference Range Interpretation Comme nts NA (test code = 1240411114) 137 mmol/L 135-145 K (test code = 1140740410) 4.1 mmol/L 3.5-5.0 CL (test code = 0181263562) 106 mmol/L 98-108 CO2 TOTAL (test code = 6974172137) 23 mmol/L 23-31 AGAP (test code = 8854874816) 8 2-16 BUN (test code = 2949471658) 12 mg/dL 7-23 GLUCOSE (test code = 9694645521) 109 mg/dL 70-110 CREATININE (test code = 9057641938) 0.44 mg/dL 0.50-1.04 L CALCIUM (test code = 8302522520) 8.8 mg/dL 8.6-10.6 eGFR (test code = 7611265906) 156.8 mL/min/1.73m2 PARTH (test code = PARTH) [...] imaging tests). Lab Interpretation (test code = 56821-9) Abnormal [facility] WITH FIJX4280-25-55 15:38:28* Test Item Value Reference Range Interpretation Comme nts WBC (test code = 6690-2) 8.04 See_Comment [Automated [employer]] The system which generated this result transmitted reference range: 4.30 - 11.10 10*3/?L. The reference range was not used to interpret this result as normal/abnormal. RBC (test code = 789-8) 4.38 See_Comment [Automated [employer]] The system which generated this result transmitted [...] 34.1 g/dL 31.6-35.1 RDW-SD (test code = 24773-6) 42.8 fL 39.0-49.9 RDW-CV (test code = 788-0) 13.0 % 12.0-15.5 PLT (test code = 777-3) 288 See_Comment [Automated messa ge] The system which generated this result transmitted reference range: 166 - 358 10*3/?L. The reference range was not used to interpret this result as normal/abnormal. MPV (test code = 66634-6) 10.2 fL 9.5-12.9 NRBC/100 WBC (test code = 2667266098) 0.0 See_Comment [Automated me ssage] The system which generated this result transmitted reference range: 0.0 - 10.0 /100 WBCs. The reference range was not used to interpret this result as normal/abnormal. NRBC x10^3 (test code = 4554845832) See_Comment [Automated me ssage] The system which generated this result transmitted reference range: 10*3/?L. The reference range was not used to interpret this result as normal/abnormal. GRAN MAT (NEUT) % (test code = 770-8) 61.9 % IMM GRAN % (test code = 7156304487) 0.20 % LYMPH % (test code = 736-9) 29.1 % MONO % (test code = 5905-5) 7.1 % EOS % (test code = 713-8) 1.2 % BASO % (test code = 706-2) 0.5 % GRAN MAT x10^3(ANC) (test code = [id number]) 4.97 10*3/uL 1.88-7.09 IMM GRAN x10^3 (test code = [id number]) 0.00-0.06 LYMPH x10^3 (test code = 731-0) 2.34 10*3/uL 1.32-3.29 MONO x10^3 (test code = 742-7) 0.57 10*3/uL 0.33-0.92 EOS x10^3 (test code = 711-2) 0.10 10*3/uL 0.03-0.39 BASO x10^3 (test code = 704-7) 0.04 10*3/uL 0.01-0.07 [facility], THIRD [id number] 06:23:27* Test Item Value Reference Range Interpretation Comme [facility] TSH, THIRD GENERATION (test code = 2821) 1.220 UIU/ML 0.400-4.100 VITAMIN [id number] 06:23:27* Test Item Value Reference Range Interpretation Comme [facility] VITAMIN B-12 (test code = 2840) 312 PG/ML 200-950 VITAMIN D, 25 [id number] 04:36:56* Test Item Value Reference Range Interpretation Comme [facility] VITAMIN D, 25 OH (test code [...] . . . . NG/ML 30-100 HEMOGLOBIN [id number] 03:56:42* Test Item Value Reference Range Interpretation Comme [facility] HEMOGLOBIN A1c (test code = 82322) 5.8 % 4.2-5.6 H UNLESS OTHERWISE INDICATED, ALL TESTING PERFORMED [facility] [address] [place] [address] ROTARY DRIER FEEDER: NAILA OATES M.D. CLIA NUMBER [id number] [facility] [place]. [id number] COMPREHENSIVE METABOLIC [id number] 03:29:09* Test Item Value Reference Range Interpretation Comme [facility] GLUCOSE (test code = 2217) 86 MG/DL 70-99 BUN (test code = 2208) 16 MG/DL 6-20 CREATININE (test code = 2214) 0.61 MG/DL 0.60-1.30 eGFR (2020 CKD-EPI) (test code = 99918) 115 ML/MIN/1.73 >60 CALC BUN/CREAT (test code = 2235) 26 RATIO 6-28 SODIUM (test code = 223) 138 MEQ/L 133-146 POTASSIUM (test code = 2228) 4.1 MEQ/L 3.5-5.4 CHLORIDE (test code = 2215) 99 MEQ/L 95-107 CARBON DIOXIDE (test code = 2206) 23 MEQ/L 19-31 CALCIUM (test code = 220) 9.6 MG/DL 8.5-10.5 PROTEIN, TOTAL (test code [...] 30 U/L 5-40 CBC W/AUTO DIFF WITH [id number] 02:24:23* Test Item Value Reference Range Interpretation [...] = 1065) 0.0 /100 WBC'S See_Comment [Automated [employer] ge] The system which generated this result [...] 0.00-0.10 ABS NUCLEATED RBCS (test code = 53520) 0.00 K/UL 0.00-0.11 CBC WITH [id number] 10:42:11* Test Item Value Reference Range Interpretation Comme nts WBC (test code = 6690-2) See_Comment [Automated [employer] LEPOW] The system which generated this result transmitted reference range: 4.30 - 11.10 10*3/?L. The reference range was not used to interpret this result as normal/abnormal. RBC (test code = 789-8) See_Comment L [Automated [employer] LEPOW] The system which generated this result transmitted [...] 33.3 g/dL 31.6-35.1 RDW-SD (test code = 66876-8) 45.3 fL 39-49.9 RDW-CV (test code = 788-0) 13.3 % 12-15.5 PLT (test code = 777-3) See_Comment [Automated messa ge] The system which generated this result transmitted reference range: 166 - 358 10*3/?L. The reference range was not used to interpret this result as normal/abnormal. MPV (test code = 89078-4) 10.5 fL 9.5-12.9 NRBC/100 WBC (test code = 9181016918) See_Comment [Automated [employer] ssage] The system which generated this result transmitted reference range: 0.0 - 10.0 /100 WBCs. The reference range was not used to interpret this result as normal/abnormal. NRBC x10^3 (test code = 4174780119) See_Comment [Automated [employer] ge] The system which generated this result transmitted reference range: 10*3/?L. The reference range was not used to interpret this result as normal/abnormal. GRAN MAT (NEUT) % (test code = 770-8) 37.8 % IMM GRAN % (test code = 2459820107) 0.50 % LYMPH % (test code = 736-9) 51.2 % MONO % (test code = 5905-5) 8.1 % EOS % (test code = 713-8) 1.9 % BASO % (test code = 706-2) 0.5 % GRAN MAT x10^3(ANC) (test code = 2298638065) 2.43 10*3/uL 1.88-7.09 IMM GRAN x10^3 (test code = 8001928065) 0.03 10*3/uL 0-0.06 LYMPH x10^3 (test code = 731-0) 3.29 10*3/uL 1.32-3.29 MONO x10^3 (test code = 742-7) 0.52 10*3/uL 0.33-0.92 EOS x10^3 (test code = 711-2) 0.12 10*3/uL 0.03-0.39 BASO x10^3 (test code = 704-7) 0.03 10*3/uL 0.01-0.07 Lab Interpretation (test code = 58952-3) Abnormal [facility] WITH [id number] 10:58:56* Test Item Value Reference Range Interpretation [...] 34.0 g/dL 31.6-35.1 RDW-SD (test code = 40219-4) 46.4 fL 39-49.9 RDW-CV (test code = 788-0) 13.7 % 12-15.5 PLT (test code = 777-3) See_Comment [Automated messa ge] The system which generated this result transmitted reference range: 166 - 358 10*3/?L. The reference range was not used to interpret this result as normal/abnormal. MPV (test code = 73526-2) 11.5 fL 9.5-12.9 NRBC/100 WBC (test code = 6480006861) See_Comment [Automated me ssage] The system which generated this result transmitted reference range: 0.0 - 10.0 /100 WBCs. The reference range was not used to interpret this result as normal/abnormal. NRBC x10^3 (test code = 8467736064) See_Comment [Automated messa ge] The system which generated this result transmitted reference range: 10*3/?L. The reference range was not used to interpret this result as normal/abnormal. GRAN MAT (NEUT) % (test code = 770-8) 69.6 % IMM GRAN % (test code = 1079578017) 0.20 % LYMPH % (test code = 736-9) 22.6 % MONO % (test code = 5905-5) 7.3 % EOS % (test code = 713-8) 0.1 % BASO % (test code = 706-2) 0.2 % GRAN MAT x10^3(ANC) (test code = 1737850241) 8.81 10*3/uL 1.88-7.09 H IMM GRAN x10^3 (test code = 6749135188) 0.03 10*3/uL 0-0.06 LYMPH x10^3 (test code = 731-0) 2.86 10*3/uL 1.32-3.29 MONO x10^3 (test code = 742-7) 0.93 10*3/uL 0.33-0.92 H EOS x10^3 (test code = 711-2) 0.03-0.39 L BASO x10^3 (test code = 704-7) 0.01-0.07 Lab Interpretation (test code = 86479-3) [facility] (54440)2022-05-21 01:01:28* Test Item Value Reference Range Interpretation Comme nts NA (test code = 1829112187) 139 mmol/L 135-145 K (test code = 6866782754) 3.6 mmol/L 3.5-5 CL (test code = 6557686058) 106 mmol/L 98-108 CO2 TOTAL (test code = 9219464719) 24 mmol/L 23-31 AGAP (test code = 0461850223) 2-16 BUN (test code = 2196419102) 10 mg/dL 7-23 GLUCOSE (test code = 7415022903) 96 mg/dL 70-110 CREATININE (test code = 9231425605) 0.44 mg/dL 0.5-1.04 L TOTAL BILI (test code = 6548924993) 1.0 mg/dL 0.1-1.1 CALCIUM (test code = 9246191877) 9.0 mg/dL 8.6-10.6 T PROTEIN (test code = 8130061210) 7.8 g/dL 6.3-8.2 ALBUMIN (test code = 3176186125) 4.6 g/dL 3.5-5 ALK PHOS (test code = 2470857029) 81 U/L 34-122 ALTv (test code = 1742-6) 11 U/L 5-35 AST(SGOT) (test code = 2705646327) 17 U/L 13-40 eGFR (test code = 9054723612) mL/min/1.73m2 PARTH (test code = PARTH) Association [...] imaging tests). Lab Interpretation (test code = 90142-8) Abnormal [facility]. METABOLIC PANEL (90321)2022-05-21 01:01:28* Test Item Value Reference Range Interpretation Comme nts NA (test code = 3731118497) 139 mmol/L 135-145 K (test code = 4234239454) 3.6 mmol/L 3.5-5 CL (test code = 4479945301) 106 mmol/L 98-108 CO2 TOTAL (test code = 2378609846) 24 mmol/L 23-31 AGAP (test code = 1576155622) 2-16 BUN (test code = 1378965262) 10 mg/dL 7-23 GLUCOSE (test code = 0269891705) 96 mg/dL 70-110 CREATININE (test code = 8027407111) 0.44 mg/dL 0.5-1.04 L TOTAL BILI (test code = 8204431352) 1.0 mg/dL 0.1-1.1 CALCIUM (test code = 1450210831) 9.0 mg/dL 8.6-10.6 T PROTEIN (test code = 6330865053) 7.8 g/dL 6.3-8.2 ALBUMIN (test code = 2402283769) 4.6 g/dL 3.5-5 ALK PHOS (test code = 1773476522) 81 U/L 34-122 ALTv (test code = 1742-6) 11 U/L 5-35 AST(SGOT) (test code = 8827079958) 17 U/L 13-40 eGFR (test code = 0018471520) mL/min/1.73m2 PARTH (test code = PARTH) Association [...] imaging tests). Lab Interpretation (test code = 07975-0) Abnormal [facility] WITH [id number] 00:51:27* Test Item Value Reference Range Interpretation Comme nts WBC (test code = 6690-2) See_Comment H [Automated [employer]] The system which generated this result transmitted reference range: 4.30 - 11.10 10*3/?L. The reference range was not used to interpret this result as normal/abnormal. RBC (test code = 789-8) See_Comment [Can[employer]etics] The system which generated this result transmitted [...] 33.3 g/dL 31.6-35.1 RDW-SD (test code = 73345-3) 45.4 fL 39-49.9 RDW-CV (test code = 788-0) 13.3 % 12-15.5 PLT (test code = 777-3) See_Comment [Automated [employer]] The system which generated this result transmitted reference range: 166 - 358 10*3/?L. The reference range was not used to interpret this result as normal/abnormal. MPV (test code = 11649-2) 10.5 fL 9.5-12.9 NRBC/100 WBC (test code = 0014554973) See_Comment [Automated me ssage] The system which generated this result transmitted reference range: 0.0 - 10.0 /100 WBCs. The reference range was not used to interpret this result as normal/abnormal. NRBC x10^3 (test code = 1066765633) See_Comment [Automated messa ge] The system which generated this result transmitted reference range: 10*3/?L. The reference range was not used to interpret this result as normal/abnormal. GRAN MAT (NEUT) % (test code = 770-8) 67.4 % IMM GRAN % (test code = 4347779993) 0.30 % LYMPH % (test code = 736-9) 24.5 % MONO % (test code = 5905-5) 7.2 % EOS % (test code = 713-8) 0.3 % BASO % (test code = 706-2) 0.3 % GRAN MAT x10^3(ANC) (test code = 9595508469) 8.19 10*3/uL 1.88-7.09 H IMM GRAN x10^3 (test code = 4556283436) 0.04 10*3/uL 0-0.06 LYMPH x10^3 (test code = 731-0) 2.98 10*3/uL 1.32-3.29 MONO x10^3 (test code = 742-7) 0.88 10*3/uL 0.33-0.92 EOS x10^3 (test code = 711-2) 0.04 10*3/uL 0.03-0.39 BASO x10^3 (test code = 704-7) 0.04 10*3/uL 0.01-0.07 Lab Interpretation (test code = 01658-0) Abnormal [facility] WITH [id number] 00:51:27* Test Item Value Reference Range Interpretation [...] 33.3 g/dL 31.6-35.1 RDW-SD (test code = 35602-5) 45.4 fL 39-49.9 RDW-CV (test code = 788-0) 13.3 % 12-15.5 PLT (test code = 777-3) See_Comment [Automated messa ge] The system which generated this result transmitted reference range: 166 - 358 10*3/?L. The reference range was not used to interpret this result as normal/abnormal. MPV (test code = 27685-4) 10.5 fL 9.5-12.9 NRBC/100 WBC (test code = 6328076027) See_Comment [Automated [employer] ssage] The system which generated this result transmitted reference range: 0.0 - 10.0 /100 WBCs. The reference range was not used to interpret this result as normal/abnormal. NRBC x10^3 (test code = 4180468913) See_Comment [Automated messa ge] The system which generated this result transmitted reference range: 10*3/?L. The reference range was not used to interpret this result as normal/abnormal. GRAN MAT (NEUT) % (test code = 770-8) 67.4 % IMM GRAN % (test code = 3002604647) 0.30 % LYMPH % (test code = 736-9) 24.5 % MONO % (test code = 5905-5) 7.2 % EOS % (test code = 713-8) 0.3 % BASO % (test code = 706-2) 0.3 % GRAN MAT x10^3(ANC) (test code = 3197321023) 8.19 10*3/uL 1.88-7.09 H IMM GRAN x10^3 (test code = 3549344478) 0.04 10*3/uL 0-0.06 LYMPH x10^3 (test code = 731-0) 2.98 10*3/uL 1.32-3.29 MONO x10^3 (test code = 742-7) 0.88 10*3/uL 0.33-0.92 EOS x10^3 (test code = 711-2) 0.04 10*3/uL 0.03-0.39 BASO x10^3 (test code = 704-7) 0.04 10*3/uL 0.01-0.07 Lab Interpretation (test code = 37474-1) [facility], [id number] 00:00:00 * Test Item Value Reference Range Interpretation Comme nts SOURCE: (test code = 8001) Cervical/Endocervical SLIDES: (test code = 8011) 1 LMP: (test code = 8021) 03/26/2019 SPECIMEN ADEQUACY: (test code = 21157) (NOTE) INTERPRETATION: (test code = 52078) NILM/NO EPITH. ABNORMALITY;SEE BELOW OTHER COMMENTS: (test code = 8081) (NOTE) WOOL HAT HYDRAULICKER: (test code = 8101) MARI Nair(ASCP) QC TECHNOLOGIST: (test code = 8111) MARGARITA Serrano(ASCP)CT(IA C) LOCATION: (test code = 76926) (NOTE) CPT: (test code = 8140) (NOTE) CT/NG, TMA, THINPREP [ADDED]2019-05-04 00:00:00* Test Item Value Reference Range Interpretation Comme nts GONORRHEA, TMA (test code = 49479) NEGATIVE CHLAMYDIA, TMA (test code = 40368) NEGATIVE VAGINAL PATHOGENS DNA [id number] 00:00:00* Test Item Value Reference Range Interpretation Comme nts PRASANNA SPECIES (test code = 30797) NEGATIVE G. VAGINALIS (test code = 56447) NEGATIVE T. VAGINALIS (test code = 52878) POSITIVE CBC W/AUTO [id number] 00:00:00* Test Item Value Reference Range Interpretation [...] 362 K/UL HPV HIGH RISK WITH GENOTYPE, [id number] 00:00:00* Test Item Value Reference Range Interpretation Comme nts HPV HIGH RISK INTERP (test c ode = 02940) NEGATIVE HPV 16 (test code = 33317) NEGATIVE HPV 18 (test code = 93621) NEGATIVE HPV, HR, OTHER GENOTYPES (te st code = 87179) NEGATIVE LIPID [id number] 00:00:00* Test Item Value Reference Range Interpretation Comme nts CHOLESTEROL (test code = 2210) 221 MG/DL TRIGLYCERIDES (test code = 2232) 106 MG/DL HDL CHOLESTEROL (test code = 2220) 40 MG/DL CALC LDL CHOL (test code = 2237) 160 MG/DL RISK RATIO LDL/HDL (test cod e = 2238) 4.00 RATIO HEMOGLOBIN [id number] 00:00:00* Test Item Value Reference Range Interpretation Comme nts HEMOGLOBIN A1c (test code = 77869) 5.9 % COMPREHENSIVE METABOLIC [id number] 00:00:00* Test Item Value Reference Range Interpretation Comme nts GLUCOSE (test code = 2217) 100 MG/DL BUN (test code = 2208) 10 MG/DL CREATININE (test code = 2214) 0.56 MG/DL eGFR AMER. (test cod e = 51323) 137 ML/MIN/1.73 eGFR NON- AMER. (test code = 27557) 118 ML/MIN/1.73 CALC BUN/CREAT (test code = [...] ALT (test code = 2219) 26 U/L [id number] 00:00:00* Test Item Value Reference Range Interpretation [...] D4.FINDINGS: Following the administration of 95 mL Jmkkmpyzp113 intravenouscontrast, multislice axial images are obtained through [...] 05:31:13CT abdomen and pelvis with contrastLocation Code: [id number] HISTORY: 11261080: Lower abdominal teetee nCOMPARISON: NoneTechnique: Helical CT [...] % 0.0-10.0 XR CHEST 2 VIEW *OW*2018-10-12 07:25:18U00QVTV: XR CHEST 2 VIEW *OW*HISTORY: 15255649: CoughCOMPARISON: 08/08/18INDINGS: The lungs are clear. No [...] = GMID%) 10.3 % 0.0-10.0 H THROAT [id number] 07:45:00* Test Item Value Reference Range Interpretation [...] 14:39:21PA and lateral chest, 2 viewsLocation code: [id number] HISTORY: Chest painCOMPARISON: NoneCOMMENTS:The lungs are clear and well inflated. The costophrenic angles aresharp. The cardiomediastinal silhouette is unremarkable. The bones are intact.IMPRESSION: No acute abnormality Notes Date/Time Note Provider Source 2024-08-22 16:35:00 Regarding: Appt Esc Rheum ----- Message from Patient Medicaid Collection Specialist sent at 08/22/2024 4:33 PM DAM ATTENDANT ----- Serenity Calderon is a 44 year old female or post op (no) N/A -Number of weeks N/A -Date of Surgery N/A Language: Arabic Specific Symptoms: in pain non stop, get's headaches and not sure what they're from, red splotches pop up on body, high BP, fainting when she goes to store, sjogren's syndrome, she also has these spells that she's throwing up, sweats and light headed/vision spinning (sometimes this gets so bad she has to call Ambulance or go to hospital). Patient is frustrated, she had a FU with Shea Sebastian 10/2023 to discuss lab results and wasn't told about her sjogren's syndrome. Patient is on the books for first avail appt in January and added to wait list as high. She is requesting a sooner appt. Specific Duration: 3yrs off/on Specific Duration: 3yrs off/on ATTENDANT Yumiko Simon RN [facility] 2024-08-22 16:35:00 Adult Triage Assessment Last Clinic Visit: 08/22/24 Family Medicine for + EMILY Primary Symptom: fainting spells Onset / Duration: 3 years Location / Description: systemic Pain / Severity: "coming from neck- was a lot worse last year, slowly gotten better." 3-4/10 currently. But will go from 2 to a 10/10 in a second. Associated Symptoms: "Unacceptable what is going on to me", patient has had 3 years symptoms and still doesn't know going on. RA doctor retired, was not notified. Has an appointment 01/31/25 "I can not wait until January. Headache everyday, pain in spine, does not let up." Walking is starting to change. Passing out in public, randomly 5 times in the last 2 years. Vomiting and sweating. Patient states pain goes "from brain to tailbone. Spreads to hips. Shoots down right leg." Blood pressure was high today in office and was told to monitor it, does not currently have access to BP monitor at home. Last fainting spell in June 2024- not witnessed, unsure of how long LOC. States that when fainting occurs, "hands fold in and tumbles over" states eyes roll. Projectile vomiting x 1 with fainting, but has projectile vomiting occasionally, regardless. Numbness to groin, bladder control issues since hysterectomy. Numbness to extremities off and on. Denies current numbness. Tingling sensation to head/brain. Sometimes can't touch chin to chest. Feels "nerve, pinch, or kink" to right side. Endorses changes in vision when headache escalates. "Gets fuzzy and "blurs off" Red splotching to skin noted over the last 3 months. Patient has broken out 3 times. Once on stomach, then on back, then a few days ago- it was on left thigh. "Looks like hives, not blister, not itching." No pain or burning. Was gone the next day- no fever and didn't feel warm to touch. Looked like "skin was stained red." Fever / Method: denies Hydration: loss of appetite, "could make myself eat: Nausea when driving home", but went away after about 10 minutes. Pain on right side of abdomen from" right ovary to gallbladder" when needing to urinate and when making urine. Treatment so far: Ibuprofen and Tylenol typically (was taking too much and decided to decrease how often she takes it) Takes them now about 2-3 times per week. Smokes marijuana. Flexeril 10 mg. Gabapentin from ED. When patient takes both flexeril and Gabapentin, "eases pain" enough to relax and fall asleep Last taken a few nights ago. Was on Amitriptyline for 2 months but gave her nightmares and stopped medication. 8 days of massage therapy with family friend. Seeing Dr. 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 Needs help removing shoes. Affecting the way she walks. LMP: hysterectomy Pre-existing condition / Immunocompromised: Past Medical History: Diagnosis Date Anxiety Arthritis Depression Hypertension Peptic ulcer Substance abuse Transfusion history sjogren's syndrome- was just told about this today. Sciatic issues, some sort of cyst. Serenity Calderon is a 44 year old female who calls requesting an appointment escalation. Assessment and triage completed, per protocol patient should be evaluated within 24 hours. Patient verbalizes understanding of appointment escalation process. Denies other questions at this time, call back/ED warnings given. Yumiko Simon RN [facility] Nurse Triage Reason for Disposition Simple fainting is a chronic symptom (has occurred multiple times) [1] MODERATE headache (e.g., interferes with normal activities) AND [2] present > 24 hours AND [3] unexplained (Exceptions: Pain medicines not tried, typical migraine, or headache part of viral illness.) Protocols used: Zmfmzuio-DZDYW-UQ, Ikmwhwlr-YUKPC-PT ATTENDANT [facility] 2024-03-29 15:45:00 The patient was sent home with a stool collection kit and will bring it back after collection. No labs were collected during this visit. [facility] 2024-03-29 10:02:13 Mammogram dept is reporting they need a referral for dx mammo bilateral and US bilateral Pt is reporting lump in breast and everyday pain Lynda Braden [facility] 2024-03-22 13:40:00 Addended by: JIMMY CARROLL MD on: 03/28/2024 03:29 PM Modules accepted: Level of Service [facility] 2023-11-25 09:58:04 Forms reviewed & signed by Zev Villa DO, faxed to [employer] ([phone]), and scanned to patient's chart. Anne Shane MA 11/25/2023 9:58 AM Anne Shane MA [facility] 2023-11-24 15:14:31 Physical Therapy evaluation notes and Plan of Care received from [employer] (11/23/2023). Documents placed in Zev Villa DO's folder for review and signature. Once completed, should be faxed back to [phone] and scanned to patient's chart. Anne Shane MA 11/24/2023 3:15 PM Anne Shane MA [facility] 2023-11-13 14:57:22 Sent pt Aware Labshart message advising her to f/u with [facility] pharmacy. They at times have pt assistance available. [facility] 2023-11-13 12:58:03 Copied from [facility] #[id number]. Topic: Clinical - Order >> Nov 13, 2023 12:55 PM Patient Medicaid Collection Specialist wrote: Serenity Calderon is a 43 year old female Patient is calling as she is out of ubrogepant 100 mg Tab. She is not able to pay for prescription and is needing financial assistance. Patient states that last time prescription was mailed to her. Please advise. Jackelin Topete [facility] 2023-11-10 12:45:59 Prescription & Letter of Medical Necessity has been completed & signed by Zev Villa DO as well as scanned to patient's chart. Clinical notes, patient demographics, & LMN have all been faxed to [employer] . Anne Shane MA 11/10/2023 12:46 PM Anne Shane MA [facility] 2023-11-03 16:45:00 Images from the original note were not included. Venipuncture collection performed by clean technique on the right anticubitus. Total of 1 attempts were made. Slight pressure and a bandage/dressing were applied to the site(s). The patient experienced no complications. The following specimens were processed according to instructions and sent to [facility] laboratories per lab order on 11/03/2023 : LT BLUE SST 5 RED LAV PPT DK GREEN (LiHep) LT GREEN (LiHep) GAITAN DK BLUE (K2) DK BLUE (S) ACD Blood Culture NIPT Urine Urine Culture [facility] 2023-10-30 16:08:09 Called patient scheduled her an appt with Shea SIERRA at the PCP clinic on 11/02 Pam Fuentes [facility] 2023-10-30 09:24:34 Please call patient to schedule appointment to discuss lab results. Bonnie Haji MA 10/30/2023 9:24 AM Bonnie Haji MA [facility] 2023-10-29 17:16:36 Recommend patient schedule a follow up appointment to discuss lab results. RIGO-PHYSICIAN LEARNING SOLUTIONS SPECIALIST MIDLEVEL PROVIDER [facility] 2023-10-26 14:04:03 Please advise on lab results. Bonnie Haji MA 10/26/2023 2:04 PM [facility] 2023-10-26 09:40:39 Serenity Calderon is a 43 year old female Pt is calling requesting to speak with a nurse regarding lab results. Please advise. [phone] (home) Ana Pritchett [facility] 2023-10-01 15:00:00 Images from the original note were not included. Venipuncture collection performed by clean technique on the left anticubitus. Total of 1 attempts were made. Slight pressure and a bandage/dressing were applied to the site(s). The patient experienced no complications. The following specimens were processed according to instructions and sent to [facility] laboratories per lab order on 10/01/2023: LT BLUE SST 3 RED LAV 2 PPT DK GREEN (LiHep) DK GREEN (SodH) GAITAN DK BLUE (K2) DK BLUE (S) ACD Blood Culture NIPT/NTD [facility]
[2024-10-21] MEDS ORDERED: KETOROLAC 30 MG/ML INJ ONE (12:51)
[2024-10-21] MEDS ORDERED: ACETAMINOPHEN 500 MG TAB ONE (12:51)
[2024-10-21] MEDS ORDERED: ONDANSETRON 4 MG (ODT) TAB ONE (12:59)
--- NOTE | 2024-10-21 14:59 | ER ---
Nurse's Notes [facility] Name: Serenity Collins Age: 44 yrs Sex: Female : 1980 Arrival Date: 10/21/2024 Time: 11:00 Bed 9 Private MD: Diagnosis: Low back pain Presentation: 10/21 11:32 Chief complaint:. Coronavirus screen: At this time, the client does not indicate any ap3 symptoms associated with coronavirus-19. Ebola Screen: No symptoms or risks identified at this time. Initial Sepsis Screen: Does the patient meet any 2 criteria? No. Patient's initial sepsis screen is negative. Does the patient have a suspected source of infection? No. Patient's initial sepsis screen is negative. Risk Assessment:. Onset of symptoms is unknown. 11:32 Method Of Arrival: Ambulatory ap3 11:38 Chief complaint: Patient states: "I was evicted from my home, and during the move I ap3 hurt my back any more. I am in excruciating pain. No body is listening to me. I don't have any money." Patient is rocking back and forth and is unable to sit still during triage. Patient currently rates her pain as a 10/10 on the pain scale. Risk Assessment: Do you want to hurt yourself or someone else? Patient reports no desire to harm self or others. 11:38 Acuity: MARY 3 ap3 Triage Assessment: 11:38 General: Appears uncomfortable, Behavior is cooperative, appropriate for age, restless. ap3 Pain: Complains of pain in head and back Pain currently is 10 out of 10 on a pain scale. Pain began 2-3 days ago. Neuro: Level of Consciousness is awake, alert, obeys commands, Oriented to person, place, time, situation, Appropriate for age Speech is normal. Cardiovascular: Patient's skin is warm and dry. Respiratory: Airway is patent Respiratory effort is even, unlabored, Respiratory pattern is regular, symmetrical. Musculoskeletal: Range of motion: intact in all extremities. 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 Flu vaccine is not up to date. - Infectious Disease History:: Denies. - Social history:: Smoking status: Patient/guardian denies using tobacco. Screenin:40 Abuse screen: Denies threats or abuse. Nutritional screening: No deficits noted. ap3 Tuberculosis screening: No symptoms or risk factors identified. 13:14 [facility] ED Fall Risk Assessment (Adult) History of falling in the last 3 months, hb including since admission No falls in past 3 months (0 pts) Confusion or Disorientation No (0 pts) Intoxicated or Sedated No (0 pts) Impaired Gait No (0 pts) Mobility Assist Device Used No (0 pt) Altered Elimination No (0 pt) Score/Fall Risk Level 0 - 2 = Low Risk Oriented to surroundings, Maintained a safe environment, Assessed \\T\\ reinforced patient's understanding of fall precautions. Assessment: 11:59 Reassessment: No changes from previously documented assessment. Patient and/or family ll1 updated on plan of care and expected duration. Pain level reassessed. 13:13 General: Appears uncomfortable, Behavior is agitated, anxious, crying, restless, hb uncooperative. Pain: Unable to use pain scale. FLACC scale score is 10 out of 10. Neuro: Level of Consciousness is awake, alert, obeys commands, Oriented to person, place, time, situation. Cardiovascular: Patient's skin is warm and dry. Respiratory: Respiratory effort is even, unlabored, Respiratory pattern is regular, symmetrical. GI: Reports nausea. : No signs and/or symptoms were reported regarding the genitourinary system. EENT: No signs and/or symptoms were reported regarding the EENT system. Derm: Skin is pink, warm \\T\\ dry. Injury Description: headache and back pain. 14:57 Reassessment: Patient is alert, oriented x 3, equal unlabored respirations, skin ll1 warm/dry/pink. "If the doctor is not gonna see me, I'm just gonna fucking leave!" "I'm in pain, frustrated, in nausea." Stupid nurse gave me water with nausea and a pill, that's fucking stupid." Admits to seeing the doctor a few times but still cursing at staff. 15:06 Reassessment: No changes from previously documented assessment. Patient and/or family ll1 updated on plan of care and expected duration. Pain level reassessed. Vital Signs: 11:32 BP 122 / 90; Pulse 88; Resp 18; Temp 98.1; Pulse Ox 100% ; Height 5 ft. 2 in. ; Pain ap3 10/10; 15:06 BP 121 / 81; Pulse 81; Resp 18; Pulse Ox 98% ; ll1 11:32 Pain Scale: Adult ap3 ED Course: 11:01 Patient arrived in ED. mr 11:40 Triage completed. ap3 11:40 Arm band placed on left wrist. ap3 11:44 Dolores Chen MD is Attending Physician. gb1 11:59 Patient placed in an exam room, on a stretcher. ll1 12:53 Bonnie Dickerson, RN is Primary Nurse. hb 13:15 Patient has correct armband on for positive identification. Bed in low position. Call hb light in reach. Provided Education on: medications, use of call light . 15:06 No provider procedures requiring assistance completed. Patient did not have IV access ll1 during this emergency room visit. Administered Medications: 13:13 Drug: Ketorolac IM 60 mg IM once Route: IM; Site: left gluteus; hb 15:07 Follow up: Response: No adverse reaction ll1 13:13 Drug: Acetaminophen PO 1000 mg PO once Route: PO; hb 15:07 Follow up: Response: No adverse reaction ll1 13:15 Drug: Ondansetron PO 4 mg PO once Route: PO; hb 15:07 Follow up: Response: No adverse reaction ll1 Medication: 13:15 VIS not applicable for this client. hb Outcome: 14:58 Discharge ordered by . gb1 15:06 Discharged to home ambulatory, ll1 15:06 Condition: stable 15:06 Discharge instructions given to patient, Instructed on discharge instructions, follow up and referral plans. Demonstrated understanding of instructions, follow-up care, left without written discharge instructions. 15:07 Patient left the ED. ll1 Signatures: Melanie Castelan, Reg Reg mr Bonnie Dickerson, YOHAN RN Alisson Wagner RN RN ap3 Chris Abbott RN RN ll1 Gustavo, Dolores, MD gb1
--- NOTE | 2024-10-21 14:59 | EDPHYS ---
Physician Documentation [facility] Name: Serenity Collins Age: 44 yrs Sex: Female : 1980 Arrival Date: 10/21/2024 Time: 11:00 Bed 9 Private MD: ED Physician Dolores Chen HPI: 10/21 15:03 This 44 yrs old Female presents to ER via Ambulatory with complaints of Back gb1 Pain, Headache. 15:03 44-year-old female here with chronic back pain and headache. She has a gb1 history of anxiety, bipolar disorder, depression, OCD, PTSD and rheumatoid arthritis. Patient denies any falls or injuries and denies any chest pain or shortness of breath.. 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 Flu vaccine is not up to date. - Infectious Disease History:: Denies. - Social history:: Smoking status: Patient/guardian denies using tobacco. Exam: 15:03 Constitutional: This is a well developed, well nourished patient who is awake, alert, gb1 and in no acute distress. Head/Face: Normocephalic, atraumatic. Eyes: Pupils equal round and reactive to light, extra-ocular motions intact. Lids and lashes normal. Conjunctiva and sclera are non-icteric and not injected. Cornea within normal limits. Periorbital areas with no swelling, redness, or edema. ENT: Nares patent. No nasal discharge, no septal abnormalities noted. Tympanic membranes are normal and external auditory canals are clear. Oropharynx with no redness, swelling, or masses, exudates, or evidence of obstruction, uvula midline. Mucous membranes moist. Neck: Trachea midline, no thyromegaly or masses palpated, and no cervical lymphadenopathy. Supple, full range of motion without nuchal rigidity, or vertebral point tenderness. No Meningismus. Chest/axilla: Normal chest wall appearance and motion. Nontender with no deformity. No lesions are appreciated. Cardiovascular: Regular rate and rhythm with a normal S1 and S2. No gallops, murmurs, or rubs. Normal PMI, no JVD. No pulse deficits. Respiratory: Lungs have equal breath sounds bilaterally, clear to auscultation and percussion. No rales, rhonchi or wheezes noted. No increased work of breathing, no retractions or nasal flaring. Abdomen/GI: Soft, non-tender, with normal bowel sounds. No distension or tympany. No guarding or rebound. No evidence of tenderness throughout. Back: No midline spinal tenderness. Mild L3-L5 costovertebral tenderness. Full range of motion. Skin: Warm, dry with normal turgor. Normal color with no rashes, no lesions, and no evidence of cellulitis. MS/ Extremity: Pulses equal, no cyanosis. Neurovascular intact. Full, normal range of motion. Neuro: Awake and alert, GCS 15, oriented to person, place, time, and situation. Cranial nerves II-XII grossly intact. Motor strength 5/5 in all extremities. Sensory grossly intact. Cerebellar exam normal. Normal gait. Vital Signs: 11:32 BP 122 / 90; Pulse 88; Resp 18; Temp 98.1; Pulse Ox 100% ; Height 5 ft. 2 in. ; Pain ap3 10/10; 15:06 BP 121 / 81; Pulse 81; Resp 18; Pulse Ox 98% ; ll1 11:32 Pain Scale: Adult ap3 MDM: 11:44 Medical Screening Exam initiated gb1 15:03 Data reviewed: vital signs, nurses notes. ED course: 44 old female with no red flags gb1 for back pain. No urinary symptoms and she does have a history of chronic pain as well as RA. Patient has been very combative with staff cursing and using obscenities. We have tried to redirect her and we have treated her pain she is up sitting in the chair without any difficulties. She is not having any radicular symptoms and on exam has a nonfocal neurological exam. 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 I doubt occult vertebral fracture or any signs of infection. Doubt discitis. No concern at all at this time for cauda equina.. Administered Medications: 13:13 Drug: Ketorolac IM 60 mg IM once Route: IM; Site: left gluteus; hb 15:07 Follow up: Response: No adverse reaction ll1 13:13 Drug: Acetaminophen PO 1000 mg PO once Route: PO; hb 15:07 Follow up: Response: No adverse reaction ll1 13:15 Drug: Ondansetron PO 4 mg PO once Route: PO; hb 15:07 Follow up: Response: No adverse reaction ll1 Disposition Summary: 10/21/24 14:58 Discharge Ordered Notes: Location: Home gb1 Problem: chronic gb1 Symptoms: are unchanged gb1 Condition: Stable gb1 Diagnosis - Low back pain gb1 Followup: gb1 - With: Private Physician - When: - Reason: Further diagnostic work-up Discharge Instructions: - Discharge Summary Sheet gb1 - Chronic Back Pain, [id number] gb1 Forms: - Medication Reconciliation Form gb1 - Antibiotic Education gb1 - Prescription Opioid Use gb1 - Patient Portal Instructions gb1 - Leadership Thank You Letter gb1 Signatures: Bonnie Dickerson RN RN Alisson Wagner RN RN ap3 Dolores Chen MD MD gb1 Chris Abbott RN ll1 Corrections: (The following items were deleted from the chart) 15:06 15:03 ED course: 44 old female with no red flags for back pain. No urinary symptoms and gb1 she does have a history of chronic pain as well as RA. Patient has been very combative with staff cursing and using obscenities. We have tried to redirect her and we have treated her pain she is up sitting in the chair without any difficulties. She is not having any radicular symptoms and on exam has a nonfocal neurological exam. 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 I doubt occult vertebral fracture or any signs of infection. Doubt discitis.. gb1
[2024-10-21 15:17] VITALS: TEMP 98.1
[2024-10-21 15:22] VITALS: BP 121/81; O2SAT 98
== END 2024-10-21 15:07 | disposition home or self-care (01) ==
LOC: ER 11:00
DX: M54.50 Low back pain, unspecified (principal); R51.9 Headache, unspecified
CPT/HCPCS: 96372; 99284; Q0162